=== PATIENT | female | born 1955 | race Caucasian/White ===

== ENCOUNTER 2016-06-14 22:42 | Inpatient (IN) ==
[2016-06-15] MEDS ORDERED: Ondansetron 4 MG/2 ML VIAL IVP PRN ×2 (01:00→08:49)
[2016-06-15] MEDS ORDERED: *HR* Dextrose 50 % in Water (Syg) 50 ML SYRINGE IVP PRN ×2 (01:00→08:49)
[2016-06-15] MEDS ORDERED: D5% in Water 1,000 ML IV PRN ×2 (01:00→08:49)
[2016-06-15] MEDS ORDERED: Acetaminophen 325 MG TABLET PO PRN (01:00)
[2016-06-15] MEDS ORDERED: 0.9 % Sodium Chloride 1,000 ML IVC SCH ×2 (01:00→07:46)
[2016-06-15] MEDS ORDERED: Vancomycin (wt based) 1,000 MG VIAL IVPB SCH (01:00)
[2016-06-15] MEDS ORDERED: Naloxone 0.4 MG/ML INJ IVP PRN ×2 (01:00→08:49)
[2016-06-15] MEDS ORDERED: Dextrose Gel 15 GM PO PRN ×4 (01:00→08:49)
[2016-06-15] MEDS ORDERED: *HR* Morphine 2 MG/ML SYRINGE IVP PRN (01:00)
[2016-06-15] MEDS ORDERED: Albuterol 2.5 MG/3 ML NEBULIZER IH PRN ×2 (01:14→08:49)
--- NOTE | 2016-06-15 01:27 | Internal Med History&Physical ---
Date of Encounter: 06/15/16 Time of Encounter: 01:18 Assessment and Plan (1) Acute hypoxemic respiratory failure Current visit: Yes Status: Acute 1. Pt admitted to ICU for ongoing critical care and support. 2. Will treat with aerosols, antibiotics, and steroids. 3. I worry about PE given her h/o DVT and breast cancer. 4. Continue Lovenox until PE and DVT ruled out. 5. Wean oxygen, if able. If necessary, will palce on BiPap and/or intubate--> ventilator for ongoing respiratory support. 6. CXR negative, but I suspect pneumonia (HCAP). Will treat as such with IV antibiotics. Follow cultures. (2) History of DVT (deep vein thrombosis) Current visit: Yes Status: Chronic 1. Will place patient on full dose of Lovenox and evaluate for DVT and PE. 2. Pt at high risk given prior DVT and breast cancer. 3. Pt reportedly has IVC filter in place. (3) Acute exacerbation of chronic obstructive pulmonary disease (COPD) Current visit: No Status: Acute 1. Likely due to residual pneumonia. 2. Supportive measures as above. 3. Smoking cessation well advised. (4) Breast cancer Current visit: Yes Status: Chronic 1. Outpatient follow up with oncology. 2. Pt had surgery and radiation. No history of chemotherapy. 3. Consult hematology if necessary. Qualifiers: Breast location: unspecified site of breast Patient sex: female Laterality: bilateral Qualified Code(s): C50.911 - Malignant neoplasm of unspecified site of right female breast; C50.912 - Malignant neoplasm of unspecified site of left female breast Internal Medicine - H&P: HPI Chief complaint: SOB Admitted From: Hospital to Hospital Transfer Plans for Post Hospital Care: Transfer [facility]sp Facility History of present illness: Ms. Yang is a 61 year old female who presents in transfer from [facility] ER with complaints of respiratory failure. She was in rehabilitation at her local F when she developed sudden onset of shortness of breath and cough while going outside to smoke a cigarette. She was sent via squad to ER for acute respiratory failure. In the ER, she was working very hard to breathe and was the verge of respiratory collapse according to the ER staff. She did respond to some aerosols and oxygenation. She was refusing BiPAP, but based preliminary discussion with ER staff, she was in dire need of a respiratory support in the form of BiPAP and/or intubation. She improved, however, with conservative measures. ER staff requested transfer to [place], and I accepted her to the ICU. I requested the patient be placed on BiPAP, but she refused. I asked the ER staff to warn her that she may need intubation emergently en route and/or upon arrival to the ICU. Upon arrival to ICU, I saw patient right away. Unfortunately, patient has improved and does not have severe work of breathing at this time. She is coughing vigorously and short of breath. However, she does feel much better. She has a history of COPD and continues to smoke. Additionally, she was just hospitalized in [place] at [facility] last month for severe pneumonia requiring ICU stay. She was treated there with IV antibiotics and respiratory support in the form of BiPAP. She did not require intubation, however. She was discharged to [facility] for rehabilitation after that stay. Of note , patient has a history of breast cancer treated with surgery and radiation therapy. She also has a history of DVT several years ago. Given her risk for hypercoagulability and sudden onset of shortness of breath, I requested the ER staff to give her a one-time dose of Lovenox prior to transfer for suspicion of PE. She denies any chest pain presently. However, she states she developed sudden onset of shortness of breath earlier today which led to acute respiratory failure. She denies any fevers or chills. She has been coughing vigorously the last few days. She denies any significant wheezing, however. Past Med Surg Social Fam HX - Past Medical History Attestation: Yes The following information was validated with the patient. Source: patient, old records reviewed Medical history: arthritis, asthma, COPD, coronary artery disease, CVA, diabetes , GERD, hyperlipidemia, hypertension, thyroid disease, TIA Psychiatric history: anxiety, depression - Past Surgical History Surgical History: breast surgery, orthopedic, other, other (IVC filter) - Social History Smoking Status: Current every day smoker Packs per day: 1.5 Smokeless Tobacco Status: No (1 PPD) Alcohol use: none Drug use: none Current living situation: [facility] Activity Level: Independent ambulation Recent Out of Country Travel Within the Last 8 Weeks: No - Family History Mother Living Status: Hx Family Cardiac Disorders: Yes Hx Family Respiratory Disorders: Yes (emphysema) Hx Family Cancer: Yes (uterine cancer) Father Living Status: Hx Family Cardiac Disorders: Yes Internal Medicine - H&P: Meds Atenolol [Tenormin] 25 mg PO DAILY 05/23/15 [History] Folic Acid 1 mg PO DAILY 05/23/15 [History] Levothyroxine [Synthroid] 25 mcg PO DAILY 05/23/15 [History] Losartan [Cozaar] 25 mg PO DAILY 05/23/15 [History] Metformin [Glucophage] 1,000 mg PO BIDWM 05/23/15 [History] Gabapentin [Neurontin] 300 mg PO TID 10/25/15 [History] Hydroxyzine HCl 25 mg PO TID PRN 10/25/15 [History] Insulin Glargine,Hum.rec.anlog [Lantus Solostar] 25 unit SQ DAILY 10/25/15 [ History] Montelukast [Singulair] 10 mg PO DAILY 10/25/15 [History] Oxygen 1 each .ROUTE AD 10/25/15 [History] FLUoxetine HCl [Fluoxetine HCl] 40 mg PO DAILY 05/21/16 [History] Atorvastatin [Lipitor] 10 mg PO HS 06/14/16 [History] Insulin ASPART [NovoLOG] 0 unit SQ TIDWM 06/14/16 [History] Allergies ibuprofen Adverse Reaction (Verified 06/14/16 20:30) Nausea - Constitutional Constitutional: no chills, no fever(s) - EENT Eyes: no blurry vision, no change in vision Ears: no ear pain, no tinnitus Nose, mouth and throat: nasal congestion, no sinus pressure, no sore throat - Cardiovascular Cardiovascular ROS IM: dyspnea, dyspnea on exertion, no chest pain, no edema, no palpitations - Respiratory Respiratory: cough, dyspnea, dyspnea on exertion, chest congestion, excessive phlegm production, no hemoptysis, no wheezing - Gastrointestinal Gastrointestinal: no abdominal pain, no diarrhea, no hematemesis, no hematochezia, no melena, no nausea, no vomiting - Genitourinary Genitourinary: no dysuria, no flank pain, no hematuria - Musculoskeletal Musculoskeletal ROS IM: no back pain, no muscle cramps, no muscle weakness, no myalgias - Integumentary Integumentary IM: no rash, no jaundice - Neurological Neurological ROS: no dizziness, no focal weakness, no frequent falls, no headache(s) - Psychiatric Psychiatric: anxiety, no depression - Endocrine Endocrine IM: no cold intolerance, no heat intolerance, no polydipsia, no polyuria - Hematologic/Lymphatic Hematologic/Lymphatic: no easy bruising, no lymphadenopathy - Allergic/Immunologic Allergic/Immunologic: no wheezing, no GI upset with certain foods - Constitutional Vitals: Temp Pulse Resp BP Pulse Ox 96.8 F L 82 20 153/98 88 L 06/15/16 00:38 06/15/16 01:00 06/15/16 01:00 06/15/16 01:00 06/15/16 01:00 General appearance: Present: cooperative, mild distress, A&O X 3, answers questions appropriately Exam: mild to moderate respiratory distress - Head Head exam: Present: atraumatic, normal inspection - Expanded Head Exam Head exam expanded: Absent: abrasion, contusion, general tenderness - Eye Eye exam: Present: EOMI, normal appearance, PERRL. Absent: scleral icterus Pupils: Present: normal accommodation - ENT ENT exam: Present: mucous membranes dry, normal exam, normal external ear exam, normal oropharynx - Neck Neck exam general surgery: Present: full ROM, supple. Absent: lymphadenopathy, nuchal rigidity, thyromegaly - Expanded Neck Exam Neck exam: Absent: carotid bruit - Respiratory Respiratory exam: Present: accessory muscle use, prolonged expiratory phase, respiratory distress (moderate), rhonchi. Absent: chest wall tenderness, CTAB, rales, wheezes - Cardiovascular Cardiovascular exam: Present: distant heart sounds, RRR, +S1, +S2. Absent: diastolic murmur, JVD, systolic murmur - GI/Abdominal GI/Abdominal exam: Present: normal bowel sounds, soft. Absent: hepatomegaly, mass, splenomegaly, tenderness - Extremities Exam Extremities exam: Present: full ROM, warm. Absent: calf tenderness, joint swelling, pedal edema - Back Exam Back exam: Absent: CVA tenderness (L), CVA tenderness (R) - Neurological Exam Neurological exam: Present: alert, CN II-XII intact, oriented X3, no focal deficits - Psychiatric Psychiatric exam: Present: anxious. Absent: depressed - Skin Skin exam: Present: dry, warm. Absent: rash Internal Med - H&P Results - Labs Labs: I reviewed the lab results a Shirley and include the following: WBC 15.9 Hemoglobin 15.0 Hematocrit 46.9 Count 194 ABG: PH 7.35 PCO2 55 PO2 67 HCO3 30.1 O2 saturations 91% FiO2 15 L via facemask Sodium 139 Potassium 4.8 Chloride 101 Carbon dioxide 24 BUN 22 Creatinine 0.93 Glucose 507 troponin 0.02 - Diagnostic Studies Chest x-ray Status: image reviewed by me (poor quality; lungs relatively clear; cardioegaly ; report reviewed -- negative) - VTE Reasons for not Prescribing Prophylaxis: Not indicated-Anticoagulated or INR therapeutic
[2016-06-15 02:15] LABS: Basophils % 0.1 %; Hematocrit 44.2 % (35.3-44.9); Hemoglobin 14.3 g/dL (11.5-15.4); Immature Granulocytes % 0.3 % (0-4); Lymphocytes # 0.4 K/mcL (0.6-4.6); Mean Corpuscular HGB Conc 32.4 g/dL (31.6-35.5); Mean Corpuscular Hemoglobin 29.5 pg (28.0-33.3); Mean Corpuscular Volume 91.1 fL (83.0-100.0); Mean Platelet Volume 9.4 fL (9.4-12.4); Monocytes # 0.1 K/mcL (0.0-1.3); Monocytes % 0.9 %; Neutrophils # 11.5 K/mcL (1.6-8.9); Platelet Count 165 K/mcL (140-400); Red Blood Count 4.85 M/mcL (3.82-4.97); Segmented Neutrophils % 95.7 %
[2016-06-15 02:20] LABS: INR 0.9; Prothrombin Time 9.9 Seconds (9.4-12.1)
[2016-06-15 02:23] LABS: Activated Partial Thrombo Time 29.3 Seconds (26.0-36.0)
[2016-06-15 02:35] LABS: Alanine Aminotransferase 63 Units/L (0-55); Albumin/Globulin Ratio 0.8 (1.1-2.2); Alkaline Phosphatase 94 Units/L (38-126); Aspartate Amino Transferase 38 Units/L (5-34); BUN/Creatinine Ratio 23 (6-26); Bilirubin,Total 0.4 mg/dL (0.2-1.2); Blood Urea Nitrogen 23 mg/dL (7-20); Calcium 9.7 mg/dL (8.6-10.8); Carbon Dioxide 29 mEq/L (19-29); Chloride 97 mEq/L (98-109); Globulin 3.6 g/dL (2.4-3.5); Glucose 460 mg/dL (70-99); Magnesium 1.5 mg/dL (1.6-2.6); Osmolality,Calculated 312 (280-300); Potassium 4.7 mEq/L (3.5-4.5); Sodium 139 mEq/L (136-145); Total Protein 6.6 g/dL (6.0-8.3); eGFR For African Americans > 60 (> 60); eGFR For Non-African Americans 58 (> 60)
[2016-06-15] MEDS ORDERED: Vancomycin 2,000 MG in D5% in Water 500 ML IVPB SCH (03:30)
[2016-06-15 03:36] LABS: 2009 H1N1 PCR NOT DETECTED (Not Detect); Influenza A PCR Negative (Negative); Influenza B PCR Negative (Negative)
[2016-06-15] MEDS: Ipratropium/Albuterol Neb 3 ML IH SCH ×5 (03:54→19:48)
[2016-06-15] MEDS ORDERED: *HR* Enoxaparin 150 MG/ML SYRINGE SQ SCH (06:00)
[2016-06-15] MEDS ORDERED: Insulin LISPRO 300 UNITS/3 ML VIAL SQ SCH (07:30)
[2016-06-15] MEDS ORDERED: hydrOXYzine pamoate 25 MG CAPSULE PO PRN (07:44)
[2016-06-15] MEDS ORDERED: Magnesium Sulfate 2 GM in D5% in Water 100 ML IVPB ONE ×2 (07:58→08:49)
[2016-06-15] MEDS ORDERED: Piperacillin/Tazobactam 3.375 GM in D5% in Water (Mini-Bag+) 100 ML IVPB SCH (08:00)
[2016-06-15] MEDS ORDERED: methylPREDNISolone 125 MG/2 ML VIAL IVP SCH (08:00)
--- NOTE | 2016-06-15 08:15 | Event Note ---
Date of Encounter: 06/15/16 Time of Encounter: 08:08 61 year old female admitted with acute on chronic worsening respiratory failure , admitted to ICU. Patient seen and examined; Alert, awake and oriented, morbidly obese female, in no distress; VSS per flow sheet; noted to be saturating around 89-90% on 3L/min NC; Chest -S1, S2 heard; decreased B/L air entry, no active wheezing/rhonchi heard; Abdomen- obese, nontender Extremities- B/L trace pitting pedal edema, ?calf tenderness but no erythema or warmth Acute on chronic respiratory failure- hypoxic and hypercapnic- due to COPD exacerbation and active smoking and possible underlying PNA; continue bronchodilators, IV steroids, IV antibiotics; improving, currently on 3L/min NC ; f/up Venous Doppler lower extremities and stop Lovenox if no DVT; Right lower lobe Pneumonia- could be an infiltrate from the recent infection for which she was treated at [facility], will obtain old records; continue IV Levaquin, Zosyn and Vancomycin for now as she presents from [facility]; DM- Type 2, on insulin- noted to have uncontrolled blood sugars; start basal insulin and continue high dose sliding scale insulin; diabetic diet; Hypomagnesemia- supplement with IV Magnesium sulfate and f/up; Patient is stable for transfer to medical floor/step-down unit;
[2016-06-15] MEDS ORDERED: Insulin DETEMIR 100 UNIT/ML X5UNITS SQ SCH (09:00)
[2016-06-15] MEDS ORDERED: FLUoxetine 20 MG CAPSULE PO SCH (09:00)
[2016-06-15] MEDS ORDERED: Gabapentin 100 MG CAPSULE PO SCH (09:00)
[2016-06-15] MEDS ORDERED: Aspirin Enteric Coated 325 MG Tablet PO SCH (09:00)
[2016-06-15] MEDS ORDERED: Levothyroxine 25 MCG TABLET PO SCH (09:00)
[2016-06-15] MEDS ORDERED: Levofloxacin 750 MG/150 ML 750 MG/150 ML BAG IVPB SCH (09:00)
[2016-06-15] MEDS ORDERED: Folic Acid 1 MG TABLET PO SCH (09:00)
[2016-06-15] MEDS: Folic Acid 1 MG TABLET PO SCH (09:15)
[2016-06-15] MEDS: Aspirin Enteric Coated 325 MG Tablet PO SCH (09:15)
[2016-06-15] MEDS: FLUoxetine 20 MG CAPSULE PO SCH (09:15)
[2016-06-15] MEDS: Insulin DETEMIR 100 UNIT/ML X5UNITS SQ SCH ×2 (09:15→22:01)
[2016-06-15] MEDS: Gabapentin 100 MG CAPSULE PO SCH ×3 (09:15→22:01)
[2016-06-15] MEDS: Levothyroxine 25 MCG TABLET PO SCH (09:16)
[2016-06-15] MEDS: methylPREDNISolone 125 MG/2 ML VIAL IVP SCH ×2 (09:32→16:20)
[2016-06-15] MEDS: 0.9 % Sodium Chloride 1,000 ML IVC SCH ×2 (09:43→12:11)
[2016-06-15] MEDS: Insulin LISPRO 300 UNITS/3 ML VIAL SQ SCH ×2 (11:38→16:26)
--- NOTE | 2016-06-15 13:41 | Oncology Inp Consult Note ---
Date of Encounter: 06/15/16 Time of Encounter: 13:00 Assessment and Plan (1) Breast cancer Status: Chronic Assessment and plan: 61 yo female with mohini lumpectomy with SLN- Right breast [id number] stage IA 0/4 LN neg 1.7cm, grade 2, DCIs margins clear and invasive ductal ca left breast [id number] stage IA 0/3 LN neg, grade 2, DICS present, margins clear. ER/VA positive HER2 neg Oncotype score at 20--Absolute benefit of chemotherapy is small, risk reduction for recurrence in minimal. Anastrazole 1mg daily started 12/02/15--no side effects. She has been held in her rehab stay, she needs to resume S/P RT --radiation skin changes healing no clinical signs of recurrence Family hx ca uterine in sister and mother and another sister ovarian DEXA scan baseline-12/26 normal. She has quit ca. She currently smokes cigarettes with erythrocytosis, wJAk2 was negative. Half PPD. Labs not repeated today. COPD exacerbation, recent pneumonia on abx, O2, clinically improving. Screening mammogram due around . Will order outpatient nad return soon after for follow up Above plan of care d/w patient and sister who stated understanding. Patient will return to my clinic for follow up as scheduled. Qualifiers: Breast location: unspecified site of breast Patient sex: female Laterality: bilateral Qualified Code(s): C50.911 - Malignant neoplasm of unspecified site of right female breast; C50.912 - Malignant neoplasm of unspecified site of left female breast - Data of Consult Requesting Physician: Gisselle Corbett MD Primary Care Provider: Dimitris Villaseñor CNP - Consult Narrative Reason for consult: breast cancer History of present illness: Ms. Yang is a 61 year old female with medical history significant for COPD , history of DVT, history of breast cancer status post surgery on the antiestrogen therapy status post radiation, patient was transferred from [facility] due to respiratory failure patient was in the rehabilitation and reports having shortness of breath as she had an episode, when she was wanting to smoke cigarettes. Denies any fever or chills. She underwent a CT angiogram to rule out pulmonary embolism. She also underwent Dopplers of lower extremities, she has bilateral lower extremity swelling. He also has history of anxiety depression. Patient is currently on any antibiotics. Rule out pneumonia. She has been at rehabilitation since her discharge from [place] from [facility] for pneumonia. She reports some changes in the right breast area. She had an appointment today in the clinic for routine follow-up visit for breast cancer, hence she is being seen in the hospital today. Past Med Surg Social Fam HX - Past Medical History Medical history: arthritis, asthma, COPD, coronary artery disease, CVA, diabetes , GERD, hyperlipidemia, hypertension, thyroid disease, TIA Psychiatric history: anxiety, depression - Past Surgical History Surgical History: breast surgery, orthopedic, other, other (IVC filter) - Social History Smoking Status: Current every day smoker Packs per day: 1.5 Smokeless Tobacco Status: No (1 PPD) Alcohol use: none Drug use: none - Family History Mother Living Status: Hx Family Cardiac Disorders: Yes Hx Family Respiratory Disorders: Yes (emphysema) Hx Family Cancer: Yes (uterine cancer) Father Living Status: Hx Family Cardiac Disorders: Yes Medications and Allergies Atenolol [Tenormin] 25 mg PO DAILY 05/23/15 [History] Folic Acid 1 mg PO DAILY 05/23/15 [History] Levothyroxine [Synthroid] 25 mcg PO DAILY 05/23/15 [History] Losartan [Cozaar] 25 mg PO DAILY 05/23/15 [History] Metformin [Glucophage] 1,000 mg PO BID 05/23/15 [History] Gabapentin [Neurontin] 300 mg PO TID 10/25/15 [History] Hydroxyzine HCl 25 mg PO TID PRN 10/25/15 [History] Insulin Glargine,Hum.rec.anlog [Lantus Solostar] 25 unit SQ HS 10/25/15 [History ] Montelukast [Singulair] 10 mg PO DAILY 10/25/15 [History] Oxygen 2.5 l .ROUTE AD 10/25/15 [History] FLUoxetine HCl [Fluoxetine HCl] 40 mg PO DAILY 05/21/16 [History] Atorvastatin [Lipitor] 10 mg PO HS 06/14/16 [History] Insulin ASPART [NovoLOG] 10 - 30 unit SQ TIDWM 06/14/16 [History] Aspirin [Ecotrin] 325 mg PO DAILY 06/15/16 [History] Ipratropium/Albuterol Neb [Duoneb] 3 ml IH Q6HR 06/15/16 [History] Allergies acetaminophen [From Tylenol] Allergy (Verified 06/15/16 07:25) Hives ibuprofen Adverse Reaction (Verified 06/14/16 20:30) Nausea Review of systems: as in HPI Oncology - Exam - Constitutional Vitals: Temp Pulse Resp BP Pulse Ox 97.6 F 75 18 148/68 88 L 06/15/16 11:34 06/15/16 13:05 06/15/16 13:05 06/15/16 13:05 06/15/16 13:05 General appearance: mild distress, obese - Head Head exam: Present: atraumatic, normal inspection - Eye Eye exam: Present: sclera anicteric - ENT ENT exam: Present: mucous membranes moist - Neck Neck exam: Present: full ROM Additional comments: no adenopathy - Respiratory Respiratory exam: Present: CTAB, rhonchi - Cardiovascular Cardiovascular exam: Present: +S1, +S2 - GI/Abdominal GI/Abdominal exam: Present: normal bowel sounds, soft - Extremities Exam Extremities exam: Present: pedal edema - Neurological Exam Neurological exam: Present: alert, CN II-XII intact, oriented X3 - Psychiatric Psychiatric exam: Present: normal affect Oncology - Results - Labs Labs: Short CBC 06/15/16 Range/Units 02:04 WBC 12.0 H (4.3-11.1) K/mcL Hgb 14.3 (11.5-15.4) g/dL Hct 44.2 (35.3-44.9) % Plt Count 165 (140-400) K/mcL Neutrophils # 11.5 H (1.6-8.9) K/mcL BMP 06/15/16 02:04 Sodium 139 Potassium 4.7 H Chloride 97 L Carbon Dioxide 29 BUN 23 H Creatinine 0.98 Glucose 460 H Calcium 9.7 Cardiac Enzymes 06/15/16 06/15/16 Range/Units 02:04 06:27 Troponin I 0.30 H* 0.32 H* (0-0.03) ng/mL Liver Function 06/15/16 Range/Units 02:04 Total Bilirubin 0.4 (0.2-1.2) mg/dL AST 38 H (5-34) Units/L ALT 63 H (0-55) Units/L Alkaline Phosphatase 94 (38-126) Units/L Albumin 3.0 L (3.5-5.0) g/dL Consult Discharge Plan - Plan Referrals: Dimitris Villaseñor, JARRETT [Primary Care Provider] -
--- NOTE | 2016-06-15 14:22 | Electrocardiograph Report ---
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
[2016-06-15] MEDS: Vancomycin 2,000 MG in D5% in Water 500 ML IVPB SCH (16:21)
[2016-06-15] MEDS: Piperacillin/Tazobactam 3.375 GM in D5% in Water (Mini-Bag+) 100 ML IVPB SCH (16:21)
[2016-06-15] MEDS: *HR* Enoxaparin 150 MG/ML SYRINGE SQ SCH (16:37)
[2016-06-15] MEDS: hydrOXYzine pamoate 25 MG CAPSULE PO PRN (16:49)
[2016-06-15] MEDS: Nicotine 21 MG PATCH.TD24 TD SCH (22:02)
[2016-06-15] MEDS: diazePAM 5 MG TABLET PO PRN (22:46)
[2016-06-16] MEDS: Piperacillin/Tazobactam 3.375 GM in D5% in Water (Mini-Bag+) 100 ML IVPB SCH (00:27)
[2016-06-16] MEDS: methylPREDNISolone 125 MG/2 ML VIAL IVP SCH ×3 (00:28→17:15)
[2016-06-16] MEDS: hydrOXYzine pamoate 25 MG CAPSULE PO PRN ×3 (00:28→14:08)
[2016-06-16] MEDS: 0.9 % Sodium Chloride 1,000 ML IVC SCH ×3 (01:28→07:59)
[2016-06-16] MEDS: Ipratropium/Albuterol Neb 3 ML IH SCH ×6 (02:23→20:36)
[2016-06-16 05:25] LABS: Basophils % 0.1 %; Hematocrit 43.6 % (35.3-44.9); Immature Granulocytes % 0.4 % (0-4); Lymphocytes # 0.5 K/mcL (0.6-4.6); Lymphocytes % 4.4 %; Mean Corpuscular HGB Conc 32.1 g/dL (31.6-35.5); Mean Corpuscular Hemoglobin 28.7 pg (28.0-33.3); Mean Corpuscular Volume 89.5 fL (83.0-100.0); Mean Platelet Volume 9.2 fL (9.4-12.4); Monocytes # 0.3 K/mcL (0.0-1.3); Monocytes % 2.2 %; Neutrophils # 10.8 K/mcL (1.6-8.9); Platelet Count 171 K/mcL (140-400); Red Blood Count 4.87 M/mcL (3.82-4.97); Red Cell Distribution Width 14.6 % (11.5-14.5); Segmented Neutrophils % 92.9 %
[2016-06-16] MEDS: Vancomycin 2,000 MG in D5% in Water 500 ML IVPB SCH (05:25)
[2016-06-16] MEDS: Levothyroxine 25 MCG TABLET PO SCH (05:28)
[2016-06-16] MEDS: *HR* Enoxaparin 150 MG/ML SYRINGE SQ SCH (05:28)
[2016-06-16 05:50] LABS: BUN/Creatinine Ratio 31 (6-26); Blood Urea Nitrogen 28 mg/dL (7-20); Calcium 8.9 mg/dL (8.6-10.8); Carbon Dioxide 25 mEq/L (19-29); Chloride 101 mEq/L (98-109); Glucose 435 mg/dL (70-99); Osmolality,Calculated 306 (280-300); Potassium 4.7 mEq/L (3.5-4.5); Sodium 136 mEq/L (136-145); eGFR For African Americans > 60 (> 60); eGFR For Non-African Americans > 60 (> 60)
[2016-06-16] MEDS: Insulin LISPRO 300 UNITS/3 ML VIAL SQ SCH ×6 (06:19→17:16)
[2016-06-16] MEDS: FLUoxetine 20 MG CAPSULE PO SCH (07:37)
[2016-06-16] MEDS: Gabapentin 100 MG CAPSULE PO SCH ×3 (07:37→19:45)
[2016-06-16] MEDS: Folic Acid 1 MG TABLET PO SCH (07:37)
[2016-06-16] MEDS: diazePAM 5 MG TABLET PO PRN ×3 (07:37→19:45)
[2016-06-16] MEDS: Aspirin Enteric Coated 325 MG Tablet PO SCH (07:38)
[2016-06-16] MEDS ORDERED: Perflutren Lipid Microsphere 1.3 ML in 0.9 % Sodium Chloride 8.7 ML IVP ONE (07:39)
[2016-06-16] MEDS: Nicotine 21 MG PATCH.TD24 TD SCH (07:39)
[2016-06-16] MEDS: Insulin DETEMIR 100 UNIT/ML X5UNITS SQ SCH ×2 (07:50→19:46)
[2016-06-16] MEDS: Levofloxacin 750 MG/150 ML 750 MG/150 ML BAG IVPB SCH (08:02)
[2016-06-16] MEDS ORDERED: Dextrose Gel 15 GM PO PRN ×2 (09:40)
[2016-06-16] MEDS ORDERED: *HR* Dextrose 50 % in Water (Syg) 50 ML SYRINGE IVP PRN (09:40)
[2016-06-16] MEDS ORDERED: D5% in Water 1,000 ML IV PRN (09:40)
--- NOTE | 2016-06-16 10:03 | Internal Med Progress Note ---
Date of Encounter: 06/16/16 Time of Encounter: 09:59 - Assessment and plan (1) Pneumonia Current Visit: Yes Status: Acute Assessment and plan: CT chest suggestive of PNA in right lower lobe along with mucus plugging of right lower lobe bronchial airways. Records from [facility] reviewed, where the patient was admitted in early May 2016 and was noted to have left upper lobe atelectasis/pneumonia and mucous plugging, underwent bronchoscopy with sterile cultures and was treated with IV Levaquin. Blood and sputum cultures currently so far remain negative, will de-escalate antibiotics to IV Levaquin; improving clinically; continue supportive care with supplemental O2; Qualifiers: Pneumonia type: due to unspecified organism Laterality: right Lung location: lower lobe of lung Qualified Code(s): J18.1 - Lobar pneumonia, unspecified organism (2) Acute on chronic respiratory failure Current Visit: Yes Status: Acute Assessment and plan: Related to acute exacerbation of COPD given her continued half pack per day smoking. Improving clinically. Taper down IV steroids as tolerated. Continue inhaled corticosteroids, bronchodilators, supplemental oxygen and supportive care. Currently requiring 3-4 L/m oxygen via nasal cannula, which will probably be her new baseline. Of note, patient continually refuses BiPAP support but she is agreeable to endotracheal intubation if needed. CODE STATUS discussed with patient and she confirms that she wishes to be full code. Physical and occupational therapy evaluation for safe discharge home as patient insists on going home and not to the rehabilitation facility from which she was admitted to our hospital. guest services agent on board. Qualifiers: Respiratory failure complication: hypoxia Qualified Code(s): J96.21 - Acute and chronic respiratory failure with hypoxia (3) Acute exacerbation of chronic obstructive pulmonary disease (COPD) Current Visit: Yes Status: Acute Assessment and plan: Plan as above. (4) Elevated troponin Current Visit: Yes Status: Acute Assessment and plan: Troponins trending down, around 0.2. This is most likely related to demand ischemia and acute COPD and hypoxemia. Continue telemetry monitoring and repeat troponin. Follow up echocardiogram. (5) Breast cancer Current Visit: Yes Status: Chronic Assessment and plan: Oncology evaluation appreciated. Patient is to follow-up as an outpatient. Qualifiers: Breast location: unspecified site of breast Patient sex: female Laterality: bilateral Qualified Code(s): C50.911 - Malignant neoplasm of unspecified site of right female breast; C50.912 - Malignant neoplasm of unspecified site of left female breast (6) Anxiety Current Visit: Yes Status: Chronic Assessment and plan: Continue benzodiazepines as needed. (7) Diabetes mellitus Current Visit: Yes Status: Chronic Assessment and plan: Noted to have steroid-induced hyperglycemia. We will increase basal insulin and add nutritional insulin, continue sliding scale. Diabetic diet. Qualifiers: Diabetes mellitus type: type 2 Diabetes mellitus complication status: with hyperglycemia Diabetes mellitus detention insulin use: with terminal gauger supervisor use Qualified Code(s): E11.65 - Type 2 diabetes mellitus with hyperglycemia; Z79.4 - terminal worker (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 of insulin (8) Hypertension Current Visit: Yes Status: Chronic Qualifiers: Hypertension type: essential hypertension Qualified Code(s): I10 - Essential (primary) hypertension (9) Hypothyroidism Current Visit: Yes Status: Chronic Qualifiers: Hypothyroidism type: acquired Qualified Code(s): E03.9 - Hypothyroidism, unspecified (10) Morbid obesity with BMI of 45.0-49.9, adult Current Visit: Yes Status: Chronic (11) Nicotine dependence with nicotine-induced disorder Current Visit: Yes Status: Chronic Assessment and plan: Noted to smoke at least 1-1-1/2 pack per day of cigarettes. Continue nicotine transdermal patch, patient is not motivated to consider smoking cessation at this time. Qualifiers: Nicotine product type: cigarettes Qualified Code(s): F17.219 - Nicotine dependence, cigarettes, with unspecified nicotine-induced disorders - Subjective Interval history: Reports feeling much better, wants to be discharged home. Has some shortness of breath, which is her baseline. No chest pain, palpitations. Has intermittent cough. No fever or chills. Patient insists on going home and not to rehabilitation facility as she claims she only has 1 more day of rehabilitation left and she does not want to go back there. - Constitutional Vitals: Temp Pulse Resp BP Pulse Ox 98.4 F 67 18 147/85 92 L 06/16/16 07:07 06/16/16 07:07 06/16/16 07:59 06/16/16 07:07 06/16/16 08:54 General appearance: Present: A&O X 3, morbidly obese, answers questions appropriately - Respiratory Respiratory exam: Present: decreased breath sounds (Bilateral decreased air entry. No active wheezing or rhonchi.). Absent: accessory muscle use, rales, rhonchi, wheezes - Cardiovascular Cardiovascular exam: Present: RRR, +S1, +S2. Absent: diastolic murmur, gallop, rubs, systolic murmur - GI/Abdominal GI/Abdominal exam: Present: normal bowel sounds, soft (Obese), no peritoneal signs. Absent: distended, tenderness - Extremities Exam Extremities exam: Present: pedal edema, warm, radial pulses palpable and symetrical. Absent: calf tenderness, cyanotic - Neurological Exam Neurological exam: Present: CN II-XII intact, oriented X3, no focal deficits. Absent: pronater drift, facial droop, speech deficit Internal Medicine: Result - Labs CBC & Chem 7: 06/16/16 05:14 06/16/16 05:14 Labs: Short CBC 06/16/16 Range/Units 05:14 WBC 11.6 H (4.3-11.1) K/mcL Hgb 14.0 (11.5-15.4) g/dL Hct 43.6 (35.3-44.9) % Plt Count 171 (140-400) K/mcL Neutrophils # 10.8 H (1.6-8.9) K/mcL BMP 06/16/16 05:14 Sodium 136 Potassium 4.7 H Chloride 101 Carbon Dioxide 25 BUN 28 H Creatinine 0.90 Glucose 435 H Calcium 8.9 Cardiac Enzymes 06/15/16 Range/Units 13:08 Troponin I 0.27 H* (0-0.03) ng/mL - ABG Interpretation ABG results: PT/INR, D-dimer PT 9.9 Seconds (9.4-12.1) 06/15/16 02:04 - VTE Reasons for not Prescribing Prophylaxis: Not indicated-Anticoagulated or INR therapeutic Consult Discharge Plan - Plan Referrals: Dimitris Villaseñor, RETAIL WIRELESS SALES REPRESENTATIVE [Primary Care Provider] -
--- NOTE | 2016-06-16 11:56 | ECHO - Doppler Report ---
Echo with Imaging Enhancement Agent Name: Carey Yang Date of Study: 06/16/2016 Date: 1955 Ht: 67.0 in Medical Record#: [id number] Age: 61 Wt: 313.0 lb Gender: Female BSA: 2.45 Order #: [id number] Location: [facility] Room #: 2N9 Reading Physician: Ashok Marshall DO, FACRonnie, PUSHPA JOHN Public Health Specialist: Anay Savage RVT Ordering Physician: Audelia Corbett MD Primary Physician: Elena Villaseñor CNP Indications: Elevated Troponin Impressions: LVEF 60%. Mildly dilated left ventricle. Mild concentric left ventricular hypertrophy. Mild left ventricular diastolic dysfunction. Right ventricle was grossly normal in function. Severely dilated left atrium. Right ventricle was grossly normal in function. Mild-moderate aortic regurgitation. Mild tricuspid regurgitation. Mild pulmonary hypertension. Estimated RVSP is 39 mmHg. Left Ventricular Wall Motion: Rest Echo Findings All wall segments showed normal motion. Findings: Study Quality * Technically sub-optimal due to body habitus. ECG Findings * Sinus bradycardia. Left Ventricle * LVEF 60%. * Mildly dilated left ventricle. * Mild concentric left ventricular hypertrophy. * Mild left ventricular diastolic dysfunction. Right Ventricle * Right ventricle was grossly normal in function. Left Atrium * Severely dilated left atrium. Right Atrium * Moderately dilated right atrium. Interatrial Septum * Interatrial septum not well evaluated. Aortic Valve * Trileaflet aortic valve. * Mildly sclerotic aortic valve leaflets. * Mild-moderate aortic regurgitation. * No aortic stenosis. Mitral Valve * Mild mitral annular calcification * No mitral regurgitation. * No mitral stenosis. Tricuspid Valve * Normal tricuspid valve structure. * Mild tricuspid regurgitation. * Mild pulmonary hypertension. * Estimated RVSP is 39 mmHg. * Estimated RA pressure is presumed to be at least 5 mmHg. Pulmonic Valve * Pulmonic valve not well visualized. * No pulmonic regurgitation. Aorta * Normally sized aortic root. Pericardium * The pericardium appears normal. IVC * The IVC is not well evaluated. Pulmonary Artery * Normal visualized portions of the main pulmonary artery. History Hypertension Diabetes Hypercholesteremia History of Smoking Years 25 Packs 1 Family History of CAD 07-02-2015 a Previous Echo was performed. Contrast: Definity 1.3 ml in 8.7 ml of saline 3 ml. Measurements: BP: 130/ 58 2D Normal Values RVIDd: 4.20 cm <2.7 cm IVSd: 1.30 cm 0.6 - 1.0 cm LVIDd: 5.80 cm 3.7 - 5.6 cm LVPWd: 1.30 cm 0.6 - 1.1 cm LVIDs: 4.70 cm 1.5 - 3.6 cm AO: 2.80 cm < 4.0 cm LA: 4.30 cm 2.0 - 4.0cm %FS: 25.40 cm >25 % LA volume: 84 Mitral Valve Peak E:1.22 m/sec Peak A:1.14 m/sec E/A Ratio:1.1 Peak E' Lat Dale:5.5 cm/s Peak E' Med Dale:4.05 cm/s E/E' Lat Ratio:22.2 E/E' Med Ratio:30.1 Aortic Valve Pressure 1/2 time:697.00 msec AI pressure Half-time: 697.00 msec Tricuspid Valve TV Regurg Peak Grad: 34.00mmHg TV Regurg Peak Dale: 2.93m/sec Updated by Ashok Marshall DO, FACRonnie, PUSHPA JOHN on 06/16/2016 11:47:44 AM electronically signed on 06/16/2016 11:50:10 AM with status of Final Wall Motion Aguilera: 1=Normal, 2=Hypokinesis, 3=Akinesis, 4=Dyskinesis, 5=Aneurysmal, 6=Hyperkinetic, X=Not Visualized (Blank)=Missing
--- NOTE | 2016-06-16 13:03 | Venous Imaging Report ---
LE Venous Duplex Patient Name:Carey Yang Order Number:[id number] Procedure Date:06/15/2016 Date:1955ge:61 yrs Gender:Female Location:[facility] Room #: IC09 Battery Builder:Angelina Valladares RDCS, [place] Referring MD:Celestino Escudero MD horizontal drill operator:Elena Villaseñor, SALES AND SERVICE ADVISOR Reading MD:Aleksandar Boswell MD Primary Indications:Respiratory Failure Secondary Indications: Risk Factors Yes/No Hx of DVT Yes Trauma to Veins No Anticoagulants Yes Bushnell Filter Yes Impressions: Bilateral lower extremity: normal superficial and deep exam. Recommendations: Test completed on 06/15/2016 at 8:32:33 am. Critical findings reported to Ani Pulido in person at 8:40:33 am on 06/15/2016 by Angelina Valladares RDCS, CARLTON. Findings Prior Study: No prior study available for comparison. Lower Extremity Venous Duplex Side Vein Compress Spontaneous Flow Augment Diameter (cm) Depth (cm) Right Distal Iliac Normal Yes Phasic Yes Right Common Femoral Normal Yes Phasic Yes Right Superficial Femoral Normal Yes Phasic Yes Right Popliteal Normal Yes Phasic Yes Right Posterior Tibial Normal Yes Phasic Yes Right Peroneal Normal Yes Phasic Yes Right Great Saphenous Normal Yes Phasic Yes Right Lesser Saphenous Normal Yes Phasic Yes Left Distal Iliac Normal Yes Phasic Yes Left Common Femoral Normal Yes Phasic Yes Left Superficial Femoral Normal Yes Phasic Yes Left Popliteal Normal Yes Phasic Yes Left Posterior Tibial Normal Yes Phasic Yes Left Peroneal Normal Yes Phasic Yes Left Gastrocnemius Normal Yes Phasic Yes Left Great Saphenous Normal Yes Phasic Yes Left Lesser Saphenous Normal Yes Phasic Yes Updated by Aleksandar Boswell MD on 06/16/2016 12:56:41 PM electronically signed on 06/16/2016 12:56:51 PM with status of Final
[2016-06-16] MEDS: *HR* Heparin 5,000 UNIT/ML VIAL SQ SCH (17:14)
[2016-06-17] MEDS: hydrOXYzine pamoate 25 MG CAPSULE PO PRN ×2 (01:02→08:10)
[2016-06-17] MEDS: methylPREDNISolone 125 MG/2 ML VIAL IVP SCH ×2 (01:02→08:12)
[2016-06-17] MEDS: Ipratropium/Albuterol Neb 3 ML IH SCH ×5 (01:14→16:10)
[2016-06-17] MEDS: Folic Acid 1 MG TABLET PO SCH (08:09)
[2016-06-17] MEDS: Levothyroxine 25 MCG TABLET PO SCH (08:10)
[2016-06-17] MEDS: Aspirin Enteric Coated 325 MG Tablet PO SCH (08:10)
[2016-06-17] MEDS: FLUoxetine 20 MG CAPSULE PO SCH (08:10)
[2016-06-17] MEDS: Nicotine 21 MG PATCH.TD24 TD SCH (08:10)
[2016-06-17] MEDS: Gabapentin 100 MG CAPSULE PO SCH (08:10)
[2016-06-17] MEDS: diazePAM 5 MG TABLET PO PRN (08:10)
[2016-06-17] MEDS: Insulin DETEMIR 100 UNIT/ML X5UNITS SQ SCH (08:11)
[2016-06-17] MEDS: Levofloxacin 750 MG/150 ML 750 MG/150 ML BAG IVPB SCH (08:11)
[2016-06-17] MEDS: *HR* Heparin 5,000 UNIT/ML VIAL SQ SCH (08:20)
[2016-06-17] MEDS: Insulin LISPRO 300 UNITS/3 ML VIAL SQ SCH ×4 (08:21→11:43)
[2016-06-17] MEDS ORDERED: MethylPREDNISolone 40 MG/ML VIAL IVP SCH (10:45)
--- NOTE | 2016-06-17 10:59 | Discharge Summary ---
Date of Encounter: 06/17/16 Time of Encounter: 10:53 - Discharge Diagnosis (1) Pneumonia Priority: Primary Status: Acute Qualifiers: Pneumonia type: due to unspecified organism Laterality: right Lung location: lower lobe of lung Qualified Code(s): J18.1 - Lobar pneumonia, unspecified organism (2) Acute on chronic respiratory failure Priority: Primary Status: Resolved Qualifiers: Respiratory failure complication: hypoxia Qualified Code(s): J96.21 - Acute and chronic respiratory failure with hypoxia (3) Acute exacerbation of chronic obstructive pulmonary disease (COPD) Priority: Primary Status: Acute (4) Elevated troponin Priority: Primary Status: Acute (5) Breast cancer Priority: Secondary Status: Chronic Qualifiers: Breast location: unspecified site of breast Patient sex: female Laterality: bilateral Qualified Code(s): C50.911 - Malignant neoplasm of unspecified site of right female breast; C50.912 - Malignant neoplasm of unspecified site of left female breast (6) Anxiety Priority: Secondary Status: Chronic (7) Diabetes mellitus Priority: Secondary Status: Chronic Qualifiers: Diabetes mellitus type: type 2 Diabetes mellitus complication status: with hyperglycemia Diabetes mellitus bed bug exterminator insulin use: with bed bug exterminator use Qualified Code(s): E11.65 - Type 2 diabetes mellitus with hyperglycemia; Z79.4 - skilled nursing (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 of insulin (8) Hypertension Priority: Secondary Status: Chronic Qualifiers: Hypertension type: essential hypertension Qualified Code(s): I10 - Essential (primary) hypertension (9) Hypothyroidism Priority: Secondary Status: Chronic Qualifiers: Hypothyroidism type: acquired Qualified Code(s): E03.9 - Hypothyroidism, unspecified (10) Morbid obesity with BMI of 45.0-49.9, adult Priority: Secondary Status: Chronic (11) Nicotine dependence with nicotine-induced disorder Priority: Secondary Status: Chronic Qualifiers: Nicotine product type: cigarettes Qualified Code(s): F17.219 - Nicotine dependence, cigarettes, with unspecified nicotine-induced disorders - Discharge Medications Prescriptions: Levofloxacin [Levaquin] 500 mg PO DAILY 5 Days PredniSONE 60 mg PO DAILY 18 Days Home Medications: Atenolol [Tenormin] 25 mg PO DAILY 05/23/15 [History] Folic Acid 1 mg PO DAILY 05/23/15 [History] Levothyroxine [Synthroid] 25 mcg PO DAILY 05/23/15 [History] Losartan [Cozaar] 25 mg PO DAILY 05/23/15 [History] Metformin [Glucophage] 1,000 mg PO BID 05/23/15 [History] Gabapentin [Neurontin] 300 mg PO TID 10/25/15 [History] Hydroxyzine HCl 25 mg PO TID PRN 10/25/15 [History] Montelukast [Singulair] 10 mg PO DAILY 10/25/15 [History] Oxygen 2.5 l .ROUTE AD 10/25/15 [History] FLUoxetine HCl [Fluoxetine HCl] 40 mg PO DAILY 05/21/16 [History] Atorvastatin [Lipitor] 10 mg PO HS 06/14/16 [History] Insulin ASPART [NovoLOG] 10 - 30 unit SQ TIDWM 06/14/16 [History] Aspirin [Ecotrin] 325 mg PO DAILY 06/15/16 [History] Ipratropium/Albuterol Neb [Duoneb] 3 ml IH Q6HR 06/15/16 [History] Insulin Glargine,Hum.rec.anlog [Lantus Solostar] 40 unit SQ HS #1 06/17/16 [Rx] Levofloxacin [Levaquin] 500 mg PO DAILY 5 Days 06/17/16 [Rx] PredniSONE 60 mg PO DAILY 18 Days 06/17/16 [Rx] Allergies/Adverse Reactions: Allergies acetaminophen [From Tylenol] Allergy (Verified 06/15/16 07:25) Hives ibuprofen Adverse Reaction (Verified 06/14/16 20:30) Nausea Procedures/tests Complete & Pending: Procedures Performed prior 72 hours Category Date Time Status CT angio chest [CT] Routine Cat Scan 06/15/16 01:00 Completed ECG 12 lead ECG [ECG] Routine Y 06/15/16 01:00 Completed EV echocardiogram w enhance Routine Y 06/16/16 18:32 Completed Venous Doppler [EV venous imaging LE BI] Routine Y 06/15/16 01:16 Completed Date of admission: 06/15/16 01:34 Primary care physician: Dimitris Villaseñor CNP Consults: 06/15/16 01:00 Consult to Nurse Navigator [CONS] Routine Comment: 06/15/16 01:03 Consult to Broadcast News Producer [CONS] Routine Reason for SW Consult: Discharge 06/15/16 08:29 Consult to Oncology [CONS] Routine Consulting Provider: [facility] Reason for Consult: Breast cancer f/up Call Completed: Yes 06/16/16 09:56 Consult to Occupational Therapy [CONS] Routine Comment: Evaluate, develop and implement POC Consult to Physical Therapy [CONS] Routine Comment: Evaluate, develop and implement POC Discharging clinician: Gisselle Corbett Anticipated date of discharge: 06/17/16 - Patient Status Disposition: Home Health Service Condition: Good Functional capacity at discharge: uses cane/walker Overall status at discharge: patient is progressing back to baseline - Discharge Instructions Instructions: Prednisone (By mouth), Levofloxacin (By mouth), Diabetes Mellitus Type 2 in Adults (DC), Chronic Obstructive Pulmonary Disease (DC), Meal Planning with Diabetes Exchanges (DC) Follow Up With: Dimitris Villaseñor CNP [Primary Care Provider] - - Diet and Activity Activity: as per physical therapy, wear oxygen at all times Diet: diabetic diet, low fat, low cholesterol, low salt diet Hospital course: Ms. Yang is a 61 year old female with history of COPD, chronic tobacco abuse was admitted with worsening cough and shortness of breath from rehabilitation facility. She was noted to be having an acute exacerbation of COPD and was initially admitted to ICU due to the possibility of requiring endotracheal intubation. Patient was extremely reluctant to be placed on BiPAP support due to discomfort from BiPAP mask, however she is agreeable to intubation. She was started on IV steroids, empiric IV antibiotics, bronchodilators and supplemental oxygen. She initially required nonrebreather mask but gradually was able to be weaned down to her baseline oxygen requirements of 2-3 L/m nasal cannula. CT angiogram of chest was done which showed no evidence of pulmonary embolism but possible mucus plugging of right lower lobe bronchi along with right basal infiltrates. She was initially started on broad-spectrum IV antibiotics- vancomycin, Zosyn and Levaquin. Blood and sputum cultures remained negative. Patient also had uncontrolled diabetes and severe hyperglycemia, complicated by the use of IV steroids. Her blood sugars have improved and currently in low 200s. She is being discharged home on increased dose of Lantus. Physical therapy evaluation and recommend home health services and patient is currently medically stable for discharge; referral for home health services has been completed. She will benefit from physical and occupational therapy and visiting nurse services at home due to her chronic medical conditions and frequent hospitalizations. Time spent discussing smoking cessation with patient: 3 to 10 minutes - Time Spent with Patient Total time spent providing and/or coordinating discharge services: Greater than 30 minutes (50 min) - Constitutional Vitals: Temp Pulse Resp BP Pulse Ox 97.7 F 61 18 166/65 94 L 06/17/16 07:07 06/17/16 08:38 06/17/16 07:07 06/17/16 07:07 06/17/16 07:07 General appearance: Present: A&O X 3, morbidly obese, answers questions appropriately - Respiratory Respiratory exam: Present: decreased breath sounds (Bilateral decreased air entry). Absent: accessory muscle use, rales, rhonchi, wheezes - Cardiovascular Cardiovascular exam: Present: RRR, +S1, +S2. Absent: diastolic murmur, gallop, rubs, systolic murmur - VTE Reasons for not Prescribing Prophylaxis: Not indicated-Anticoagulated or INR therapeutic
--- NOTE | 2016-06-17 11:01 | Physician Discharge Referral ---
Home Health/Hosp Referral Info Transfer to: Home Health Attending Provider: Gisselle Corbett Provider in Charge Post Discharge: PCP - Diagnosis (1) Pneumonia Priority: Primary Status: Acute (2) Acute on chronic respiratory failure Priority: Primary Status: Resolved (3) Acute exacerbation of chronic obstructive pulmonary disease (COPD) Priority: Primary Status: Acute (4) Elevated troponin Priority: Primary Status: Acute (5) Breast cancer Priority: Secondary Status: Chronic (6) Anxiety Priority: Secondary Status: Chronic (7) Diabetes mellitus Priority: Secondary Status: Chronic (8) Hypertension Priority: Secondary Status: Chronic (9) Hypothyroidism Priority: Secondary Status: Chronic (10) Morbid obesity with BMI of 45.0-49.9, adult Priority: Secondary Status: Chronic (11) Nicotine dependence with nicotine-induced disorder Priority: Secondary Status: Chronic - Respiratory Orders Oxygen / L per min (2-3L/min via NC) Smoking Cessation: Smoking cessation has been advised. For more information, call the [employer] Tobacco Quit Line at 6-407-LECS-NOW. - Diet/Nutrition Diet/Nutrition Orders: No Added Salt (TAWANNA), Cardiac, No Concentrated Sweets ( diabetic) - Activity Activity Orders: Ambulate - Services Needed Following services are medically necessary services: Nursing, Physical Therapy, Occupational Therapy - Transfer Medications Prescriptions: Levofloxacin [Levaquin] 500 mg PO DAILY 5 Days PredniSONE 60 mg PO DAILY 18 Days Home Medications: Atenolol [Tenormin] 25 mg PO DAILY 05/23/15 [History] Folic Acid 1 mg PO DAILY 05/23/15 [History] Levothyroxine [Synthroid] 25 mcg PO DAILY 05/23/15 [History] Losartan [Cozaar] 25 mg PO DAILY 05/23/15 [History] Metformin [Glucophage] 1,000 mg PO BID 05/23/15 [History] Gabapentin [Neurontin] 300 mg PO TID 10/25/15 [History] Hydroxyzine HCl 25 mg PO TID PRN 10/25/15 [History] Montelukast [Singulair] 10 mg PO DAILY 10/25/15 [History] Oxygen 2.5 l .ROUTE AD 10/25/15 [History] FLUoxetine HCl [Fluoxetine HCl] 40 mg PO DAILY 05/21/16 [History] Atorvastatin [Lipitor] 10 mg PO HS 06/14/16 [History] Insulin ASPART [NovoLOG] 10 - 30 unit SQ TIDWM 06/14/16 [History] Aspirin [Ecotrin] 325 mg PO DAILY 06/15/16 [History] Ipratropium/Albuterol Neb [Duoneb] 3 ml IH Q6HR 06/15/16 [History] Insulin Glargine,Hum.rec.anlog [Lantus Solostar] 40 unit SQ HS #1 06/17/16 [Rx] Levofloxacin [Levaquin] 500 mg PO DAILY 5 Days 06/17/16 [Rx] PredniSONE 60 mg PO DAILY 18 Days 06/17/16 [Rx] Allergies/Adverse Reactions: Allergies acetaminophen [From Tylenol] Allergy (Verified 06/15/16 07:25) Hives ibuprofen Adverse Reaction (Verified 06/14/16 20:30) Nausea Certification: Further, I certify that my clinical findings support that this patient is homebound (i.e. absences from home require considerable and taxing effort and are for medical reasons or rastafari services or infrequently or short duration when for other reasons) because: Homebound Reason: Patient requires assistance of a person or device to safely leave home, Severity of cardiac or pulmonary status limits activity tolerance Attestation: My signature below is to certify that this patient is under my care and that I, or nurse practitioner, or a physician's child nutrition assistant working with me, has a face-to -face encounter with this patient.
[2016-06-17 11:14] VITALS: BP 152/64
[2016-06-17] MEDS ORDERED: Aminoglycoside Consult 1 EACH MC ONE (14:39)
== END 2016-06-17 14:40 | disposition home health service (06) | DRG 189 ==
LOC: ICNU → SUATTDRO 06-15 01:34 → 2NNU 06-15 21:30
PROVIDERS: ADMIT Pediatrics; ATTEND Internal Medicine

== ENCOUNTER 2017-01-08 21:01 | Inpatient (IN) ==
[2017-01-08] MEDS ORDERED: 0.9 % Sodium Chloride 1,000 ML IVC ONE ×2 (21:12→22:30)
--- NOTE | 2017-01-08 21:31 | Emergency Department Note ---
Disposition Clinical Impression: HCAP (healthcare-associated pneumonia), Delirium due to general medical condition Leucocytosis Qualifiers: Leukocytosis type: unspecified Qualified Code(s): D72.829 - Elevated white blood cell count, unspecified COPD (chronic obstructive pulmonary disease) Qualifiers: COPD type: unspecified COPD Qualified Code(s): J44.9 - Chronic obstructive pulmonary disease, unspecified Disposition: Admitted As Inpatient Condition: Fair Referrals: Dimitris Villaseñor CNP [Primary Care Provider] - Forms: ED Satisfaction Letter Time of Disposition: 23:21 Altered Mental Status HPI - General Chief Complaint: ED Altered Mental Status Stated Complaint: fall Time Seen by Provider: 01/08/17 21:03 Source: patient, family, EMS Mode of arrival: EMS Limitations: no limitations Nursing Notes Reviewed: Yes Vital Signs Reviewed: Yes - History of Present Illness HPI Narrative: Patient presents to the ED via EMS with the chief complaint of fall and altered mental status. Patient reports that she was discharged from the hospital recently after her stroke. This did leave her with some residual right-sided weakness. She has had no acute change in weakness. Family reports that she has fallen 3 times today. Unknown if she had her head or passed out. Family reported some intermittent confusion as well. Upon EMS arrival, they stated she was oriented to person only and was having significant difficulty in getting to the cot. Upon arrival here. She states that she has been following. She is complaining of right knee pain, left hip pain, headache, and lumbar pain. No abdominal pain , nausea, vomiting, diarrhea, loss of control her bowel or bladder function. No chest pain or shortness of breath. Chronic neck pain with no change from previous. She states she does not remember what happened when she fell. Denies any new weakness in her right side. No difficulty speaking, above baseline. - Related Data Home Medications Medication Instructions Recorded Confirmed Atenolol [Tenormin] 25 mg PO DAILY 05/23/15 06/15/16 Folic Acid 1 mg PO DAILY 05/23/15 06/15/16 Levothyroxine [Synthroid] 25 mcg PO DAILY 05/23/15 06/15/16 Losartan [Cozaar] 25 mg PO DAILY 05/23/15 06/15/16 metFORMIN [Glucophage] 1,000 mg PO BID 05/23/15 06/15/16 Gabapentin [Neurontin] 300 mg PO TID 10/25/15 06/15/16 Montelukast [Singulair] 10 mg PO DAILY 10/25/15 06/15/16 Oxygen 2.5 l .ROUTE AD 10/25/15 06/15/16 hydrOXYzine HCl [Hydroxyzine HCl] 25 mg PO TID PRN 10/25/15 06/15/16 FLUoxetine HCl [Fluoxetine HCl] 40 mg PO DAILY 05/21/16 06/15/16 Atorvastatin [Lipitor] 10 mg PO HS 06/14/16 06/15/16 Insulin ASPART [NovoLOG] 10 - 30 unit SQ TIDWM 06/14/16 06/15/16 Aspirin [Ecotrin] 325 mg PO DAILY 06/15/16 06/15/16 Ipratropium/Albuterol Neb [Duoneb] 3 ml IH Q6HR 06/15/16 06/15/16 Previous Rx's Medication Instructions Recorded Insulin Glargine,Hum.rec.anlog 40 unit SQ HS #1 06/17/16 [Lantus Solostar] Levofloxacin [Levaquin] 500 mg PO DAILY 5 Days 06/17/16 predniSONE [PredniSONE] 60 mg PO DAILY 18 Days 06/17/16 Allergies Allergy/AdvReac Type Severity Reaction Status Date / Time acetaminophen [From Tylenol] Allergy Hives Verified 06/15/16 07:25 ibuprofen AdvReac Nausea Verified 06/14/16 20:30 All systems ED: reviewed and negative except as stated. Constitutional: Reports: weakness (chronic ). Denies: fever Eyes: Denies: vision change Cardiovascular: Denies: chest pain Respiratory: Denies: dyspnea Gastrointestinal: Denies: abdominal pain, vomiting Musculoskeletal: Reports: as per HPI, back pain Neurological: Reports: headache Past Medical History - Past Medical History Attestation: Yes The following information was validated with the patient. Source: patient, old records reviewed, obtained from family Medical history: Reports: arthritis, asthma, COPD, coronary artery disease, CVA , diabetes, GERD, hyperlipidemia, hypertension, thyroid disease, TIA Surgical history: Reports: breast surgery, orthopedic, other, other (IVC filter) Psychiatric history: Reports: anxiety, depression EYELET MAKER history: Reports: no EYELET MAKER history - Social History Smoking Status: Current every day smoker Smokeless Tobacco Status: No (1 PPD) Alcohol use: Reports: none Drug use: Reports: none Physical Exam - General Limitations: no limitations General appearance: alert, in no apparent distress - Head Head exam: atraumatic, normocephalic, normal inspection - Eye Eye exam: Present: normal appearance, PERRL, EOMI - ENT ENT exam: normal exam, normal oropharynx, mucous membranes moist - Neck Neck exam: Present: normal inspection, full ROM, trachea midline. Absent: tenderness, meningismus - Chest Chest inspection: Present: normal inspection, symmetric chest wall rise - Respiratory Respiratory exam: Present: normal lung sounds bilaterally, other (Slight decreased breath sounds bilaterally) - Cardiovascular Cardiovascular exam: Present: regular rate, normal rhythm, normal heart sounds - Abdominal Exam Abdominal exam: Present: soft, Non-Tender, other (Morbidly obese). Absent: tenderness, distention, guarding, rebound, rigidity - Extremities Exam Extremities exam: Present: other (Large abrasion to the right knee with associated tenderness and warmth, no obvious dislocation, distal neurovascular exam is normal. Patient with residual right-sided weakness from previous stroke reports no change from baseline.) - Expanded Lower Extremity Exam Hip/Pelvis exam: Present: pelvis stable (Does have left hip pain) - Back Exam Back exam: Present: other (Midline lower lumbar pain reports new from baseline) - Neurological Exam Neurological exam: Present: alert. Absent: oriented X3 (Patient knows the year and her name and date of , but does not know what town or hospital. She is not) - Skin Skin exam: Present: warm, dry, intact, normal color Course Course Narrative: 61-year-old female presenting with altered mental status and fall. Appears much older than stated age, smells heavily of urine. Does not know what town she is in or what hospital she is in. Will CT head lumbar spine, chest x-ray, right knee x-ray and left hip x-ray. Patient will likely be admitted. - Reevaluation(s) Reevaluation #1: Patient clinically has pneumonia. She has a fever, leukocytosis, productive sputum and left lower lobar consolidation. We will treat her as he Symptoms. She states she was just in the hospital a few weeks ago for stroke. She is now alert and oriented 3. She was able to relay that she knew edema. Health systems was located in [place] and she also knew her home. Lumbar puncture was considered due to her falls and initial confusion. However, I do think that pneumonia is the most likely source of her infection and could certainly contribute to her confusion. Vital Signs Temperature 100.7 F H 01/08/17 21:14 Pulse Rate 91 01/08/17 21:14 Respiratory Rate 24 01/08/17 21:14 Blood Pressure 149/91 01/08/17 21:14 O2 Sat by Pulse Oximetry 91 01/08/17 21:14 Temperature 99.4 F 01/08/17 22:59 Pulse Rate 73 01/08/17 22:59 Respiratory Rate 22 01/08/17 22:59 Blood Pressure 130/95 01/08/17 22:59 O2 Sat by Pulse Oximetry 94 01/08/17 22:59 Oxygen Delivery Oxygen Delivery Nasal Cannula Altered Mental Status - Medical Records Medical records reviewed: Yes I reviewed the patient's medical records. - Lab Data Lab results reviewed: Yes I reviewed the patient's lab results. Result diagrams: 01/08/17 21:51 01/08/17 21:51 Lab Results 01/08/17 01/08/17 01/08/17 Range/Units 21:37 21:51 21:51 WBC 20.0 H (4.3-11.1) K/mcL RBC 5.03 H (3.82-4.97) M/mcL Hgb 14.7 (11.5-15.4) g/dL Hct 47.2 H (35.3-44.9) % MCV 93.8 (83.0-100.0) fL MCH 29.2 (28.0-33.3) pg MCHC 31.1 L (31.6-35.5) g/dL RDW 16.0 H (11.5-14.5) % Plt Count 267 (140-400) K/mcL MPV 9.0 L (9.4-12.4) fL Immature Gran % 0.5 (0-4) % Seg Neutrophils % 82.7 % Lymphocytes % 6.0 % Monocytes % 6.7 % Eosinophils % 3.7 % Basophils % 0.4 % Neutrophils # 16.6 H (1.6-8.9) K/mcL Lymphocytes # 1.2 (0.6-4.6) K/mcL Monocytes # 1.3 (0.0-1.3) K/mcL Eosinophils # 0.7 H (0.0-0.6) K/mcL Basophils # 0.1 (0.0-0.2) K/mcL PT 11.0 (9.4-12.1) Seconds INR 1.0 APTT 30.5 (26.0-36.0) Seconds Sodium (136-145) mEq/L Potassium (3.5-4.5) mEq/L Chloride (98-109) mEq/L Carbon Dioxide (19-29) mEq/L BUN (7-20) mg/dL Creatinine (0.57-1.11) mg/dL Est GFR ( Amer) (> 60) Est GFR (Non-Af Amer) (> 60) BUN/Creatinine Ratio (6-26) Glucose (70-99) mg/dL Calculated Osmolality (280-300) Lactic Acid (0.5-2.2) mmol/L Calcium (8.6-10.8) mg/dL Total Bilirubin (0.2-1.2) mg/dL AST (5-34) Units/L ALT (0-55) Units/L Alkaline Phosphatase (38-126) Units/L Troponin I (0-0.03) ng/mL Serum Total Protein (6.0-8.3) g/dL Albumin (3.5-5.0) g/dL Globulin (2.4-3.5) g/dL Albumin/Globulin Ratio (1.1-2.2) Urine Color Yellow (Yellow) Urine Clarity Clear (Clear) Urine pH 6.5 (5.0-8.0) pH Units Ur Specific Bend 1.017 (1.010-1.025) Urine Protein 100 H (Neg-Trace) mg/dL Urine Glucose (UA) Normal (Normal) mg/dL Urine Ketones Negative (Negative) mg/dL Urine Blood Negative (Negative) Urine Nitrite Negative (Negative) Urine Bilirubin Negative (Negative) Urine Urobilinogen Normal (Normal) mg/dL Ur Leukocyte Esterase Trace H (Negative) Urine Microscopic RBC 0-3 (0-3) per hpf Urine Microscopic WBC 0-3 (0-3) per hpf Ur Squamous Epith Cells Many H (None-Few) per lpf Urine Bacteria None Seen (None-Few) per hpf Hyaline Casts None Seen (None-Few) per lpf Ur Culture Indicated? YES A (NO) Ethyl Alcohol (0-10) mg/dL 01/08/17 01/08/17 01/08/17 Range/Units 21:51 21:51 21:51 WBC (4.3-11.1) K/mcL RBC (3.82-4.97) M/mcL Hgb (11.5-15.4) g/dL Hct (35.3-44.9) % MCV (83.0-100.0) fL MCH (28.0-33.3) pg MCHC (31.6-35.5) g/dL RDW (11.5-14.5) % Plt Count (140-400) K/mcL MPV (9.4-12.4) fL Immature Gran % (0-4) % Seg Neutrophils % % Lymphocytes % % Monocytes % % Eosinophils % % Basophils % % Neutrophils # (1.6-8.9) K/mcL Lymphocytes # (0.6-4.6) K/mcL Monocytes # (0.0-1.3) K/mcL Eosinophils # (0.0-0.6) K/mcL Basophils # (0.0-0.2) K/mcL PT (9.4-12.1) Seconds INR APTT (26.0-36.0) Seconds Sodium 139 (136-145) mEq/L Potassium 5.3 H (3.5-4.5) mEq/L Chloride 101 (98-109) mEq/L Carbon Dioxide 31 H (19-29) mEq/L BUN 26 H (7-20) mg/dL Creatinine 1.14 H (0.57-1.11) mg/dL Est GFR ( Amer) 59 L (> 60) Est GFR (Non-Af Amer) 49 L (> 60) BUN/Creatinine Ratio 23 (6-26) Glucose 88 (70-99) mg/dL Calculated Osmolality 292 (280-300) Lactic Acid 0.9 (0.5-2.2) mmol/L Calcium 10.2 (8.6-10.8) mg/dL Total Bilirubin 0.5 (0.2-1.2) mg/dL AST 12 (5-34) Units/L ALT 10 (0-55) Units/L Alkaline Phosphatase 81 (38-126) Units/L Troponin I 0.01 (0-0.03) ng/mL Serum Total Protein 7.4 (6.0-8.3) g/dL Albumin 3.3 L (3.5-5.0) g/dL Globulin 4.1 H (2.4-3.5) g/dL Albumin/Globulin Ratio 0.8 L (1.1-2.2) Urine Color (Yellow) Urine Clarity (Clear) Urine pH (5.0-8.0) pH Units Ur Specific Bend (1.010-1.025) Urine Protein (Neg-Trace) mg/dL Urine Glucose (UA) (Normal) mg/dL Urine Ketones (Negative) mg/dL Urine Blood (Negative) Urine Nitrite (Negative) Urine Bilirubin (Negative) Urine Urobilinogen (Normal) mg/dL Ur Leukocyte Esterase (Negative) Urine Microscopic RBC (0-3) per hpf Urine Microscopic WBC (0-3) per hpf Ur Squamous Epith Cells (None-Few) per lpf Urine Bacteria (None-Few) per hpf Hyaline Casts (None-Few) per lpf Ur Culture Indicated? (NO) Ethyl Alcohol < 10 (0-10) mg/dL - Radiology Data Radiology results reviewed: Yes I reviewed the patient's radiology results. Chest X-Ray 01/08/17 21:12 IMPRESSION: 1. Findings suspicious for interstitial pulmonary edema or pneumonia. D/ / 01/08/2017 23:17:19 Amaury Mcmahan MD / tyrone Interpreting Provider: Amaury Mcmahan MD Head CT 01/08/17 21:12 IMPRESSION: 1. No acute intracranial abnormality. 2. Diffuse cerebral atrophy with chronic small vessel ischemic disease. 3. Stable encephalomalacia as discussed above. D/ / Duong Brasher MD / Duong Brasher MD Interpreting Provider: Duong Brasher MD Knee X-Ray 01/08/17 21:12 IMPRESSION: No acute osseous abnormality. Moderate degenerative osteoarthritis. D/ / 01/08/2017 23:19:47 Amaury Mcmahan MD / tyrone Interpreting Provider: Amaury Mcmahan MD Lumbar Spine CT 01/08/17 21:12 IMPRESSION: No acute abnormality of the lumbar spine. Mild degenerative disc disease without definite evidence of spinal canal or foraminal stenosis. D/ / Alfonso Grayson MD / Alfonso Grayson MD Interpreting Provider: Alfonso Grayson MD Hip X-Ray 01/08/17 21:46 IMPRESSION: No acute osseous abnormality. D/ / Amaury Mcmahan MD / Amaury Mcmahan MD Interpreting Provider: Amaury Mcmahan MD - EKG Data EKG attestation: Yes I reviewed and interpreted this EKG. EKG results narrative: Sinus rhythm, rate 72, NV interval 148, QRS 93, QTc 443, normal axis, no acute ischemic changes TPA Checklist - LKW: 3-4.5 hrs Add. Warnings/Precautions Patient/family understanding: The patient/family members have been counseled and understood the risk, benefit , and alternatives of treatment. Attestation Statement - Attestation Attestation: I examined this patient and my medical decision-making was reviewed with the Resident Physician. I agree with the documented findings, disposition and treatment plan as described except to the extent set forth below. Patient ED with a chief complaint of altered mental status. Brought in by brother. States she has had 3 falls in the past day or so. She is also more confused than normal. Exam shows her febrile. Oriented to time and self. Plan. Altered mental status workup. Patient is febrile. She is a white blood cell count of 20,000. We will start antibiotics. 45 minutes of critical care exclusive of separately billable procedures.
[2017-01-08 21:51] LABS: Bilirubin,Urine Negative (Negative); Blood,Urine Negative (Negative); Clarity,Urine Clear (Clear); Color,Urine Yellow (Yellow); Glucose,Urine (UA) Normal (Normal); Ketones,Urine Negative (Negative); Leukocyte Esterase,Urine Trace (Negative); Nitrite,Urine Negative (Negative); PH,Urine 6.5 pH Units (5.0-8.0); Protein,Urine 100 mg/dL (Neg-Trace); Specific Gravity,Urine 1.017 (1.010-1.025); Urobilinogen,Urine Normal (Normal)
[2017-01-08 21:54] LABS: Bacteria,Urine None Seen per hpf (None-Few); Hyaline Casts,Urine None Seen per lpf (None-Few); Squamous Epithelial Cell,Urine Many per lpf (None-Few); WBC,Urine 0-3 per hpf (0-3)
[2017-01-08 22:01] LABS: Basophils # 0.1 K/mcL (0.0-0.2); Basophils % 0.4 %; Eosinophils # 0.7 K/mcL (0.0-0.6); Eosinophils % 3.7 %; Hematocrit 47.2 % (35.3-44.9); Hemoglobin 14.7 g/dL (11.5-15.4); Immature Granulocytes % 0.5 % (0-4); Lymphocytes # 1.2 K/mcL (0.6-4.6); Mean Corpuscular HGB Conc 31.1 g/dL (31.6-35.5); Mean Corpuscular Hemoglobin 29.2 pg (28.0-33.3); Mean Corpuscular Volume 93.8 fL (83.0-100.0); Monocytes # 1.3 K/mcL (0.0-1.3); Monocytes % 6.7 %; Neutrophils # 16.6 K/mcL (1.6-8.9); Platelet Count 267 K/mcL (140-400); Red Blood Count 5.03 M/mcL (3.82-4.97); Segmented Neutrophils % 82.7 %
[2017-01-08 22:09] LABS: RBC,Urine 0-3 per hpf (0-3)
[2017-01-08 22:10] LABS: Activated Partial Thrombo Time 30.5 Seconds (26.0-36.0)
[2017-01-08 22:17] LABS: Alanine Aminotransferase 10 Units/L (0-55); Albumin 3.3 g/dL (3.5-5.0); Albumin/Globulin Ratio 0.8 (1.1-2.2); Alkaline Phosphatase 81 Units/L (38-126); Aspartate Amino Transferase 12 Units/L (5-34); BUN/Creatinine Ratio 23 (6-26); Bilirubin,Total 0.5 mg/dL (0.2-1.2); Blood Urea Nitrogen 26 mg/dL (7-20); Calcium 10.2 mg/dL (8.6-10.8); Carbon Dioxide 31 mEq/L (19-29); Chloride 101 mEq/L (98-109); Ethanol < 10 mg/dL (0-10); Globulin 4.1 g/dL (2.4-3.5); Glucose 88 mg/dL (70-99); Osmolality,Calculated 292 (280-300); Potassium 5.3 mEq/L (3.5-4.5); Sodium 139 mEq/L (136-145); Total Protein 7.4 g/dL (6.0-8.3); eGFR For African Americans 59 (> 60); eGFR For Non-African Americans 49 (> 60)
[2017-01-08] MEDS ORDERED: Levofloxacin 750 MG/150 ML 750 MG/150 ML BAG IVPB ONE (22:32)
[2017-01-08] MEDS ORDERED: Vancomycin 2,000 MG in D5% in Water 250 ML IVPB ONE (22:32)
[2017-01-08] MEDS ORDERED: Piperacillin/Tazobactam 4.5 GM in D5% in Water (Mini-Bag+) 100 ML IVPB ONE (22:32)
[2017-01-08] MEDS ORDERED: Vancomycin 2,000 MG in D5% in Water 500 ML IVPB ONE (23:00)
[2017-01-09] MEDS ORDERED: Naloxone 0.4 MG/ML INJ IVP PRN (01:36)
[2017-01-09] MEDS ORDERED: Ipratropium/Albuterol Neb 3 ML IH PRN (01:44)
[2017-01-09] MEDS ORDERED: Dextrose Gel 15 GM PO PRN ×2 (01:46)
[2017-01-09] MEDS ORDERED: *HR* Dextrose 50 % in Water (Syg) 50 ML SYRINGE IVP PRN (01:46)
[2017-01-09] MEDS ORDERED: D5% in Water 1,000 ML IVC PRN (01:46)
[2017-01-09] MEDS: Insulin DETEMIR 100 UNIT/ML X5UNITS SQ SCH ×2 (02:43→23:31)
--- NOTE | 2017-01-09 03:07 | Internal Med History&Physical ---
Date of Encounter: 01/09/17 Time of Encounter: 02:00 Assessment and Plan (1) HCAP (healthcare-associated pneumonia) Current visit: Yes Status: Acute Patient has cough and elevated WBC. Chest x-ray shows most likely pneumonia. - We will treat patient as healthcare associated pneumonia. - Continue vancomycin and place patient on cefepime. Patient is at high risk because she is on vancomycin, need close monitoring. (2) Diabetes mellitus Current visit: No Status: Chronic Patient was on Lantus 40 units at bedtime. As of her glucose level is not high , will decrease dose to 22 units HS and also cover patient with sliding scale. Qualifiers: Diabetes mellitus type: type 2 Diabetes mellitus complication status: with hyperglycemia Diabetes mellitus technician terminal and repeater insulin use: with technician terminal and repeater use Qualified Code(s): E11.65 - Type 2 diabetes mellitus with hyperglycemia; Z79.4 - nursing home (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 of insulin (3) Hypertension Current visit: No Status: Chronic Continue home medications. Qualifiers: Hypertension type: essential hypertension Qualified Code(s): I10 - Essential (primary) hypertension (4) COPD (chronic obstructive pulmonary disease) Current visit: Yes Status: Chronic Patient has a cough and wheezing. Consider mild exacerbation with pneumonia. We will treat the patient with prednisone po and bronchodilator. Continue antibiotic for both pneumonia and COPD exacerbation. Qualifiers: COPD type: emphysema Emphysema type: unspecified Qualified Code(s): J43.9 - Emphysema, unspecified (5) Tobacco use Current visit: No Status: Resolved Smoking cessation education, place nicotine patch (6) DVT prophylaxis Current visit: No Status: Inactive Heparin subcutaneously (7) Acute kidney injury Current visit: No Status: Acute Elevated creatinine level from baseline. Will give patient low rate IV fluid and follow-up her renal function Internal Medicine - H&P: HPI Chief complaint: Fall Admitted From: Home Plans for Post Hospital Care: Home History of present illness: Ms. Yang is a 61 year old female with history of CVA with right-sided residual weakness, diabetes, hypertension presented to ER for fall and altered mental status. Patient fell today. Patient said that she does not know if she lost consciousness or not. Has hit her head but no obvious injury. Patient also complains recent cough with greenish sputum, with a fever, nausea and vomiting. Patient denies shortness of breath or chest pain. In emergency room , she was found elevated WBC and chest x-ray suggests pneumonia. Patient has a recent hospitalization for pneumonia. She was admitted as healthcare associated pneumonia. I have discussed CODE STATUS with patient. Patient clearly told me she does not want CPR but accept intubation. DNR CCA placed. Past Med Surg Social Fam HX - Past Medical History Medical history: arthritis, asthma, COPD, coronary artery disease, CVA, diabetes , GERD, hyperlipidemia, hypertension, thyroid disease, TIA Psychiatric history: anxiety, depression - Past Surgical History Surgical History: breast surgery, orthopedic, other, other - Social History Smoking Status: Current every day smoker Smokeless Tobacco Status: No (1 PPD) Alcohol use: none Drug use: none - Family History Mother Living Status: Hx Family Cardiac Disorders: Yes Hx Family Respiratory Disorders: Yes (emphysema) Hx Family Cancer: Yes (uterine cancer) Father Living Status: Hx Family Cardiac Disorders: Yes Internal Medicine - H&P: Meds Atenolol [Tenormin] 25 mg PO DAILY 05/23/15 [History] Folic Acid 1 mg PO DAILY 05/23/15 [History] Levothyroxine [Synthroid] 25 mcg PO DAILY 05/23/15 [History] Losartan [Cozaar] 25 mg PO DAILY 05/23/15 [History] metFORMIN [Glucophage] 1,000 mg PO BID 05/23/15 [History] Gabapentin [Neurontin] 300 mg PO TID 10/25/15 [History] Montelukast [Singulair] 10 mg PO DAILY 10/25/15 [History] Oxygen 2.5 l .ROUTE AD 10/25/15 [History] hydrOXYzine HCl [Hydroxyzine HCl] 25 mg PO TID PRN 10/25/15 [History] FLUoxetine HCl [Fluoxetine HCl] 40 mg PO DAILY 05/21/16 [History] Atorvastatin [Lipitor] 10 mg PO HS 06/14/16 [History] Insulin ASPART [NovoLOG] 10 - 30 unit SQ TIDWM 06/14/16 [History] Aspirin [Ecotrin] 325 mg PO DAILY 06/15/16 [History] Ipratropium/Albuterol Neb [Duoneb] 3 ml IH Q6HR 06/15/16 [History] Insulin Glargine,Hum.rec.anlog [Lantus Solostar] 40 unit SQ HS #1 06/17/16 [Rx] Levofloxacin [Levaquin] 500 mg PO DAILY 5 Days 06/17/16 [Rx] predniSONE [PredniSONE] 60 mg PO DAILY 18 Days 06/17/16 [Rx] 3 Allergy/AdvReac Type Severity Reaction Status Date / Time acetaminophen [From Tylenol] Allergy Hives Verified 06/15/16 07:25 ibuprofen AdvReac Nausea Verified 06/14/16 20:30 All Systems PM: A 10-system review of systems was performed and is negative for pertinent findings except as documented above in the HPI. - Constitutional Vitals: Temp Pulse Resp BP Pulse Ox 97.3 F L 67 18 132/66 92 01/09/17 01:30 01/09/17 01:30 01/09/17 01:30 01/09/17 01:30 01/09/17 01:30 General appearance: Present: A&O X 3, morbidly obese, no acute distress, answers questions appropriately - Head Head exam: Present: atraumatic, normocephalic - Eye Eye exam: Present: PERRL, conjuntiva pink, sclera anicteric Pupils: Present: PERRL - Neck Neck exam general surgery: Present: supple, trachea midline. Absent: lymphadenopathy - Respiratory Respiratory exam: Present: CTAB. Absent: accessory muscle use, rales, rhonchi, wheezes - Cardiovascular Cardiovascular exam: Present: RRR, +S1, +S2. Absent: diastolic murmur, gallop, rubs, systolic murmur - GI/Abdominal GI/Abdominal exam: Present: normal bowel sounds, soft, no peritoneal signs. Absent: distended, tenderness - Extremities Exam Extremities exam: Present: warm, radial pulses palpable and symmetrical. Absent : calf tenderness, cyanotic, pedal edema - Neurological Exam Neurological exam: Present: CN II-XII intact, oriented X3, no focal deficits. Absent: pronater drift, facial droop, speech deficit - Skin Skin exam: Present: dry, intact Internal Med - H&P Results - Labs CBC & Chem 7: 01/08/17 21:51 01/08/17 21:51
[2017-01-09] MEDS: Ipratropium/Albuterol Neb 3 ML IH SCH ×4 (04:00→22:56)
[2017-01-09 06:34] LABS: Basophils # 0.1 K/mcL (0.0-0.2); Basophils % 0.3 %; Eosinophils # 0.6 K/mcL (0.0-0.6); Eosinophils % 3.3 %; Hematocrit 44.2 % (35.3-44.9); Hemoglobin 13.8 g/dL (11.5-15.4); Immature Granulocytes % 0.6 % (0-4); Lymphocytes # 1.3 K/mcL (0.6-4.6); Lymphocytes % 7.1 %; Mean Corpuscular HGB Conc 31.2 g/dL (31.6-35.5); Mean Corpuscular Hemoglobin 29.6 pg (28.0-33.3); Mean Corpuscular Volume 94.6 fL (83.0-100.0); Mean Platelet Volume 9.8 fL (9.4-12.4); Monocytes # 1.3 K/mcL (0.0-1.3); Monocytes % 7.5 %; Neutrophils # 14.4 K/mcL (1.6-8.9); Platelet Count 242 K/mcL (140-400); Red Blood Count 4.67 M/mcL (3.82-4.97); Red Cell Distribution Width 16.3 % (11.5-14.5); Segmented Neutrophils % 81.2 %
[2017-01-09 06:38] LABS: Calcium 9.8 mg/dL (8.6-10.8); Potassium 4.8 mEq/L (3.5-4.5)
[2017-01-09] MEDS: *HR* Heparin 5,000 UNIT/ML VIAL SQ SCH ×2 (06:45→17:31)
[2017-01-09] MEDS: 0.9 % Sodium Chloride 1,000 ML IVC SCH ×2 (06:57→20:29)
[2017-01-09] MEDS: Nicotine 21 MG PATCH.TD24 TD SCH (08:16)
[2017-01-09] MEDS: predniSONE 20 MG TABLET PO SCH (08:16)
[2017-01-09] MEDS: Insulin LISPRO 300 UNITS/3 ML VIAL SQ SCH ×4 (08:17→23:18)
[2017-01-09] MEDS: Cefepime HCl 2,000 MG in D5% in Water (Mini-Bag+) 100 ML IVPB SCH ×3 (08:17→23:31)
[2017-01-09] MEDS: *HR* Morphine 2 MG/ML SYRINGE IVP PRN ×2 (08:42→16:12)
[2017-01-09] MEDS ORDERED: Aminoglycoside Consult 1 EACH MC ONE (09:35)
--- NOTE | 2017-01-09 13:20 | Internal Med Progress Note ---
Date of Encounter: 01/09/17 Time of Encounter: 13:18 - Assessment and plan (1) Sepsis Current Visit: No Status: Acute Assessment and plan: Sepsis secondary to community-acquired pneumonia Fever of 100.7 and white blood cell count of 20 Restart Levaquin, consider discontinuing cefepime discontinue vancomycin Continue mild hydration Chest x-ray showed interstitial pulmonary edema versus pneumonia Qualifiers: Sepsis type: sepsis due to unspecified organism Qualified Code(s): A41.9 - Sepsis, unspecified organism (2) Community acquired pneumonia Current Visit: Yes Status: Acute Qualifiers: Laterality: unspecified laterality Qualified Code(s): J18.9 - Pneumonia, unspecified organism (3) Diabetes mellitus Current Visit: No Status: Chronic Assessment and plan: Continue insulin sliding scale Qualifiers: Diabetes mellitus type: type 2 Diabetes mellitus complication status: with hyperglycemia Diabetes mellitus penitentiary insulin use: with director long term care use Qualified Code(s): E11.65 - Type 2 diabetes mellitus with hyperglycemia; Z79.4 - assisted (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 of insulin (4) COPD (chronic obstructive pulmonary disease) Current Visit: Yes Status: Chronic Assessment and plan: Mild acute COPD exacerbation secondary to community-acquired pneumonia Continue prednisone Qualifiers: COPD type: emphysema Emphysema type: unspecified Qualified Code(s): J43.9 - Emphysema, unspecified (5) Tobacco use Current Visit: No Status: Resolved Assessment and plan: Smoking cessation counseling, nicotine patch (6) Nicotine dependence with nicotine-induced disorder Current Visit: No Status: Chronic Qualifiers: Nicotine product type: cigarettes Qualified Code(s): F17.219 - Nicotine dependence, cigarettes, with unspecified nicotine-induced disorders (7) Morbid obesity with BMI of 45.0-49.9, adult Current Visit: No Status: Chronic (8) Dyslipidemia Current Visit: No Status: Chronic - Constitutional Vitals: Temp Pulse Resp BP Pulse Ox 97.9 F 63 14 140/68 89 01/09/17 11:57 01/09/17 11:57 01/09/17 11:57 01/09/17 11:57 01/09/17 11:57 General appearance: Present: A&O X 3, morbidly obese, no acute distress, answers questions appropriately Internal Medicine: Result - Labs CBC & Chem 7: 01/09/17 05:27 01/09/17 05:27 Labs: Short CBC 01/09/17 Range/Units 05:27 WBC 17.7 H (4.3-11.1) K/mcL Hgb 13.8 (11.5-15.4) g/dL Hct 44.2 (35.3-44.9) % Plt Count 242 (140-400) K/mcL Neutrophils # 14.4 H (1.6-8.9) K/mcL BMP 01/09/17 05:27 Sodium 141 Potassium 4.8 H Chloride 101 Carbon Dioxide 33 H BUN 25 H Creatinine 1.14 H Glucose 84 Calcium 9.8 - ABG Interpretation ABG results: PT/INR, D-dimer PT 11.0 Seconds (9.4-12.1) 01/08/17 21:51 Consult Discharge Plan - Plan Referrals: Dimitris Villaseñor CNP [Primary Care Provider] -
[2017-01-09] MEDS ORDERED: Albuterol 2.5 MG/3 ML NEBULIZER IH PRN (14:21)
[2017-01-09] MEDS ORDERED: Perflutren Lipid Microsphere 1.3 ML in 0.9 % Sodium Chloride 8.7 ML IVP ONE (14:31)
[2017-01-09] MEDS ORDERED: Vancomycin 2,000 MG in D5% in Water 500 ML IVPB ONE (15:00)
[2017-01-09] MEDS ORDERED: Vancomycin 2,000 MG in D5% in Water 250 ML IVPB SCH (20:00)
[2017-01-10] MEDS: *HR* Morphine 2 MG/ML SYRINGE IVP PRN ×5 (01:28→21:38)
[2017-01-10] MEDS ORDERED: Vancomycin 1,500 MG in D5% in Water 250 ML IVPB SCH (03:00)
[2017-01-10] MEDS: Ipratropium/Albuterol Neb 3 ML IH SCH ×4 (04:16→22:03)
[2017-01-10 05:02] LABS: Hematocrit 44.3 % (35.3-44.9); Hemoglobin 13.8 g/dL (11.5-15.4); Mean Corpuscular HGB Conc 31.2 g/dL (31.6-35.5); Mean Corpuscular Hemoglobin 29.7 pg (28.0-33.3); Mean Corpuscular Volume 95.3 fL (83.0-100.0); Platelet Count 205 K/mcL (140-400); Red Blood Count 4.65 M/mcL (3.82-4.97)
[2017-01-10] MEDS: *HR* Heparin 5,000 UNIT/ML VIAL SQ SCH ×2 (05:31→18:05)
[2017-01-10 05:44] LABS: Potassium 5.6 mEq/L (3.5-4.5)
[2017-01-10] MEDS: Levofloxacin 750 MG/150 ML 750 MG/150 ML BAG IVPB SCH (07:32)
[2017-01-10] MEDS: Nicotine 21 MG PATCH.TD24 TD SCH (07:33)
[2017-01-10] MEDS: predniSONE 20 MG TABLET PO SCH (07:33)
[2017-01-10] MEDS: Cefepime HCl 2,000 MG in D5% in Water (Mini-Bag+) 100 ML IVPB SCH (07:33)
[2017-01-10] MEDS: Insulin LISPRO 300 UNITS/3 ML VIAL SQ SCH ×4 (07:34→21:14)
[2017-01-10] MEDS: 0.9 % Sodium Chloride 1,000 ML IVC SCH (11:18)
--- NOTE | 2017-01-10 13:01 | Internal Med Progress Note ---
Date of Encounter: 01/10/17 Time of Encounter: 13:00 - Assessment and plan (1) Sepsis Current Visit: No Status: Acute Assessment and plan: Sepsis secondary to community-acquired pneumonia Fever of 100.7 and white blood cell count of 20 Restarted Levaquin day 2, discontinue cefepime discontinue vancomycin Discontinue IV fluids due to mild volume overload Continue mild hydration Chest x-ray showed interstitial pulmonary edema versus pneumonia Qualifiers: Sepsis type: sepsis due to unspecified organism Qualified Code(s): A41.9 - Sepsis, unspecified organism (2) Community acquired pneumonia Current Visit: Yes Status: Acute Qualifiers: Laterality: unspecified laterality Qualified Code(s): J18.9 - Pneumonia, unspecified organism (3) Diabetes mellitus Current Visit: No Status: Chronic Assessment and plan: Continue insulin sliding scale Qualifiers: Diabetes mellitus type: type 2 Diabetes mellitus complication status: with hyperglycemia Diabetes mellitus 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 insulin use: with 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 use Qualified Code(s): E11.65 - Type 2 diabetes mellitus with hyperglycemia; Z79.4 - assisted (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 of insulin (4) COPD (chronic obstructive pulmonary disease) Current Visit: Yes Status: Chronic Assessment and plan: Mild acute COPD exacerbation secondary to community-acquired pneumonia Continue prednisone Qualifiers: COPD type: emphysema Emphysema type: unspecified Qualified Code(s): J43.9 - Emphysema, unspecified (5) Tobacco use Current Visit: No Status: Resolved Assessment and plan: Smoking cessation counseling, nicotine patch (6) Nicotine dependence with nicotine-induced disorder Current Visit: No Status: Chronic Qualifiers: Nicotine product type: cigarettes Qualified Code(s): F17.219 - Nicotine dependence, cigarettes, with unspecified nicotine-induced disorders (7) Morbid obesity with BMI of 45.0-49.9, adult Current Visit: No Status: Chronic (8) Dyslipidemia Current Visit: No Status: Chronic (9) Hyperkalemia Current Visit: Yes Status: Acute Assessment and plan: Ordered Kayexalate and recheck in the morning - Subjective Interval history: Feels better, complains of worsening cough, denies any chest pain, no fevers, no abdominal pain, no dysuria, no diarrhea - Constitutional Vitals: Temp Pulse Resp BP Pulse Ox 97.7 F 60 13 137/73 96 01/10/17 11:14 01/10/17 11:22 01/10/17 11:14 01/10/17 11:14 01/10/17 11:14 General appearance: Present: A&O X 3, morbidly obese, no acute distress, answers questions appropriately - Head Head exam: Present: atraumatic, normocephalic - Eye Eye exam: Present: PERRL, conjuntiva pink, sclera anicteric Pupils: Present: PERRL - Neck Neck exam general surgery: Present: supple, trachea midline. Absent: lymphadenopathy - Respiratory Respiratory exam: Present: CTAB, rales (Right basilar crackles). Absent: accessory muscle use, rhonchi, wheezes - Cardiovascular Cardiovascular exam: Present: RRR, +S1, +S2. Absent: diastolic murmur, gallop, rubs, systolic murmur - GI/Abdominal GI/Abdominal exam: Present: distended, normal bowel sounds, soft, no peritoneal signs. Absent: tenderness - Extremities Exam Extremities exam: Present: warm, radial pulses palpable and symmetrical. Absent : calf tenderness, cyanotic, pedal edema - Neurological Exam Neurological exam: Present: CN II-XII intact, oriented X3, no focal deficits. Absent: pronater drift, facial droop, speech deficit - Skin Skin exam: Present: dry, intact Internal Medicine: Result - Labs CBC & Chem 7: 01/10/17 04:49 01/10/17 04:49 Labs: Short CBC 01/10/17 Range/Units 04:49 WBC 13.9 H (4.3-11.1) K/mcL Hgb 13.8 (11.5-15.4) g/dL Hct 44.3 (35.3-44.9) % Plt Count 205 (140-400) K/mcL [facility] 01/10/17 04:49 Sodium 139 Potassium 5.6 H Chloride 104 Carbon Dioxide 28 BUN 30 H Creatinine 1.14 H Glucose 163 H Calcium 9.0 - ABG Interpretation ABG results: PT/INR, D-dimer PT 11.0 Seconds (9.4-12.1) 01/08/17 21:51 Consult Discharge Plan - Plan Referrals: Dimitris Villaseñor CNP [Primary Care Provider] - 01/15/17 1:30 pm ()
--- NOTE | 2017-01-10 17:04 | Electrocardiograph Report ---
[place] [id number] Test Date: 2017-01-08 Pat Name: Carey Yang Department: 104 Room: 2N13 Gender: F Mon[place] Carver: BROWN : 1955 Requested By: Tino Leger Order Number: [id number] Reading MD: Magui Sinclair Measurements Intervals [place] Rate: 72 P: 21 SD: 148 QRS: 18 QRSD: 93 T: 61 QT: 418 QTc: 443 Interpretive Statements SINUS RHYTHM Electronically Signed On 01-10-2017 17:03:00 EDT by Magui Sinclair
--- NOTE | 2017-01-10 20:18 | Carotid Imaging Report ---
Carotid Duplex Patient Name:Carey Yang Order Number:[id number] Procedure Date:01/09/2017 Date:1955ge:61 yrs Gender:Female Location:[facility] Room #: Puff Ironer:Iam Loyola RDLEIGHTON Referring MD:Sydnee Eden PA-C hammer driver:Elena Villaseñor, PUSHCART PEDDLER Reading MD:Rafa Manjarrez MD Primary Indications:Falls Risk Factors Yes/No Hypertension Yes Diabetes Yes Hypercholesterolemia Yes Smoking Current Yes Impressions: The right internal carotid artery has a 60-79% stenosis. The left internal carotid artery has a 40-59% stenosis. Recommendations: Risk factor reduction. Further evaluation recommended if clinically indicated. Follow-up carotid duplex in 1 year. After imaging the patient returned to their room. High velocities may be d/t Tortuous bilateral ICA. TDS d/t pt body habitus and cooperation. Findings Carotid Duplex: Right: The right proximal common carotid artery has a PSV of 116 cm/s and a EDV of 12 cm/s. The right mid common carotid artery has a PSV of 83 cm/s and a EDV of 9 cm/s. There is nonstenotic plaque in the right distal common carotid artery with a PSV of 54 cm/s and a EDV of 10 cm/s. There is smooth heterogeneous plaque. There is nonstenotic plaque in the right bifurcation with a PSV of 46 cm/s and a EDV of 13 cm/s. There is smooth calcified plaque. There is 60-79% stenosis in the right proximal internal carotid artery with a PSV of 183 cm/s and a EDV of 44 cm/s. There is calcified plaque. The right mid internal carotid artery has a PSV of 85 cm/s and a EDV of 27 cm/s. The right distal internal carotid artery has a PSV of 62 cm/s and a EDV of 19 cm/s. The right eca has a PSV of 122 cm/s and a EDV of 16 cm/s. The right vertebral artery has a PSV of 59 cm/s and a EDV of 12 cm/s. Left: The left proximal common carotid artery has a PSV of 176 cm/s and a EDV of 17 cm/s. There is nonstenotic plaque in the left mid common carotid artery with a PSV of 105 cm/s and a EDV of 11 cm/s. There is smooth heterogeneous plaque. There is nonstenotic plaque in the left distal common carotid artery with a PSV of 76 cm/s and a EDV of 11 cm/s. There is smooth calcified plaque. There is nonstenotic plaque in the left bifurcation with a PSV of 62 cm/s and a EDV of 10 cm/s. There is smooth calcified plaque. There is nonstenotic plaque in the left proximal internal carotid artery with a PSV of 79 cm/s and a EDV of 22 cm/s. There is 40-59% stenosis in the left mid internal carotid artery with a PSV of 122 cm/s and a EDV of 35 cm/s. The left distal internal carotid artery has a PSV of 107 cm/s and a EDV of 26 cm/s. The left eca has a PSV of 61 cm/s and a EDV of 8 cm/s. The left vertebral artery has a PSV of 39 cm/s and a EDV of 11 cm/s. Carotid Results Right PSV EDV Assessment Proximal CCA 116 12 Normal Mid CCA 83 9 Normal Distal CCA 54 10 Non Stenotic Plaque Bifurcation 46 13 Non Stenotic Plaque Proximal ICA 183 44 60-79% stenosis Mid ICA 85 27 Normal Distal ICA 62 19 Normal ECA 122 16 Normal Vertebral Artery 59 12 Normal Left PSV EDV Assessment Proximal CCA 176 17 Normal Mid CCA 105 11 Non Stenotic Plaque Distal CCA 76 11 Non Stenotic Plaque Bifurcation 62 10 Non Stenotic Plaque Proximal ICA 79 22 Non Stenotic Plaque Mid ICA 122 35 40-59% stenosis Distal ICA 107 26 Normal ECA 61 8 Normal Vertebral Artery 39 11 Normal Ratio's Right ICA/CCA Ratio: 2.20 ICA/CCA Values: 183/83 Left ICA/CCA Ratio: 1.16 ICA/CCA Values: 122/105 Updated by Rafa Manjarrez MD on 01/10/2017 8:11:46 PM electronically signed on 01/10/2017 8:12:02 PM with status of Final
[2017-01-10] MEDS: Ondansetron 4 MG/2 ML VIAL IVP PRN (21:14)
[2017-01-10] MEDS: Insulin DETEMIR 100 UNIT/ML X5UNITS SQ SCH (21:21)
[2017-01-11] MEDS: Ipratropium/Albuterol Neb 3 ML IH SCH ×5 (03:39→22:52)
[2017-01-11] MEDS: *HR* Morphine 2 MG/ML SYRINGE IVP PRN ×4 (04:17→22:18)
[2017-01-11] MEDS: *HR* Heparin 5,000 UNIT/ML VIAL SQ SCH ×2 (06:54→18:01)
[2017-01-11 08:09] LABS: Calcium 9.2 mg/dL (8.6-10.8)
[2017-01-11] MEDS: Insulin LISPRO 300 UNITS/3 ML VIAL SQ SCH ×6 (08:24→21:48)
[2017-01-11] MEDS: Nicotine 21 MG PATCH.TD24 TD SCH (08:24)
[2017-01-11] MEDS: predniSONE 20 MG TABLET PO SCH (08:25)
[2017-01-11] MEDS: Levofloxacin 750 MG/150 ML 750 MG/150 ML BAG IVPB SCH (08:25)
--- NOTE | 2017-01-11 08:36 | Internal Med Progress Note ---
Date of Encounter: 01/11/17 Time of Encounter: 08:33 - Assessment and plan (1) Sepsis Current Visit: No Status: Acute Assessment and plan: acute on chronic Hypoxic respiratory failure due to Sepsis secondary to community-acquired pneumonia Fever of 100.7 and white blood cell count of 20 desaturated down to 85% on 4 Lt stop prednisone, start solumedrol Restarted Levaquin day 3, discontinued cefepime discontinued vancomycin Discontinued IV fluids due to mild volume overload Chest x-ray showed interstitial pulmonary edema versus pneumonia Qualifiers: Sepsis type: sepsis due to unspecified organism Qualified Code(s): A41.9 - Sepsis, unspecified organism (2) Community acquired pneumonia Current Visit: Yes Status: Acute Qualifiers: Laterality: unspecified laterality Qualified Code(s): J18.9 - Pneumonia, unspecified organism (3) Diabetes mellitus Current Visit: No Status: Chronic Assessment and plan: Continue insulin sliding scale Qualifiers: Diabetes mellitus type: type 2 Diabetes mellitus complication status: with hyperglycemia 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: with longterm use Qualified Code(s): E11.65 - Type 2 diabetes mellitus with hyperglycemia; Z79.4 - manager intermediate (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 of insulin (4) COPD (chronic obstructive pulmonary disease) Current Visit: Yes Status: Chronic Assessment and plan: acute COPD exacerbation secondary to community-acquired pneumonia solumedrol Qualifiers: COPD type: emphysema Emphysema type: unspecified Qualified Code(s): J43.9 - Emphysema, unspecified (5) Tobacco use Current Visit: No Status: Resolved Assessment and plan: Smoking cessation counseling, nicotine patch (6) Nicotine dependence with nicotine-induced disorder Current Visit: No Status: Chronic Qualifiers: Nicotine product type: cigarettes Qualified Code(s): F17.219 - Nicotine dependence, cigarettes, with unspecified nicotine-induced disorders (7) Morbid obesity with BMI of 45.0-49.9, adult Current Visit: No Status: Chronic (8) Dyslipidemia Current Visit: No Status: Chronic (9) Hyperkalemia Current Visit: Yes Status: Acute Assessment and plan: repeat Kayexalate and recheck in the morning - Subjective Interval history: Feeling SOB, complains of worsening cough, denies any chest pain, no fevers, no abdominal pain, no dysuria, no diarrhea - Constitutional Vitals: Temp Pulse Resp BP Pulse Ox 98.4 F 73 22 131/60 91 01/11/17 07:42 01/11/17 07:42 01/11/17 07:42 01/11/17 07:42 01/11/17 07:42 General appearance: Present: A&O X 3, morbidly obese, no acute distress, answers questions appropriately - Head Head exam: Present: atraumatic, normocephalic - Eye Eye exam: Present: PERRL, conjuntiva pink, sclera anicteric Pupils: Present: PERRL - Neck Neck exam general surgery: Present: supple, trachea midline. Absent: lymphadenopathy - Respiratory Respiratory exam: Present: decreased breath sounds (very diminished, fine wheezing), CTAB, wheezes. Absent: accessory muscle use, rales, rhonchi - Cardiovascular Cardiovascular exam: Present: RRR, +S1, +S2. Absent: diastolic murmur, gallop, rubs, systolic murmur - GI/Abdominal GI/Abdominal exam: Present: normal bowel sounds, soft, no peritoneal signs. Absent: distended, tenderness - Extremities Exam Extremities exam: Present: pedal edema, warm, radial pulses palpable and symmetrical. Absent: calf tenderness, cyanotic - Neurological Exam Neurological exam: Present: CN II-XII intact, oriented X3, no focal deficits. Absent: pronater drift, facial droop, speech deficit - Skin Skin exam: Present: dry, intact Internal Medicine: Result - Labs CBC & Chem 7: 01/10/17 04:49 01/11/17 07:24 Labs: BMP 01/11/17 07:24 Sodium 143 Potassium 5.0 H Chloride 104 Carbon Dioxide 34 H BUN 35 H Creatinine 1.14 H Glucose 182 H Calcium 9.2 - ABG Interpretation ABG results: PT/INR, D-dimer PT 11.0 Seconds (9.4-12.1) 01/08/17 21:51 Consult Discharge Plan - Plan Referrals: Dimitris Villaseñor CNP [Primary Care Provider] - 01/15/17 1:30 pm ()
[2017-01-11] MEDS: MethylPREDNISolone 40 MG/ML VIAL IVP SCH ×2 (15:48→23:07)
[2017-01-11] MEDS: Ondansetron 4 MG/2 ML VIAL IVP PRN (15:48)
[2017-01-11 16:11] LABS: ABG Base Excess 4.1 mEq/L (-2.0 to 3.0); ABG HCO3 35 mEq/L (21-27); ABG Oxygen Saturation 87 % (95-98); ABG PH 7.23 pH Units (7.32-7.45); ABG PO2 63 mmHg (85-104); ABG TCO2 37.3 mEq/L (20-26)
[2017-01-11 16:14] LABS: ABG PCO2 83 mmHg (35-45)
[2017-01-11] MEDS: Cefepime HCl 1,000 MG in D5% in Water (Mini-Bag+) 100 ML IVPB SCH ×2 (18:01→18:02)
[2017-01-11] MEDS: Furosemide 40 MG/4 ML VIAL IVP SCH ×2 (18:01→22:06)
[2017-01-11] MEDS: Insulin DETEMIR 100 UNIT/ML X5UNITS SQ SCH (22:07)
[2017-01-12] MEDS: Ipratropium/Albuterol Neb 3 ML IH SCH ×4 (04:03→22:44)
[2017-01-12] MEDS: Cefepime HCl 1,000 MG in D5% in Water (Mini-Bag+) 100 ML IVPB SCH ×2 (05:33→17:36)
[2017-01-12] MEDS: *HR* Heparin 5,000 UNIT/ML VIAL SQ SCH ×2 (05:34→18:42)
[2017-01-12] MEDS: *HR* Morphine 2 MG/ML SYRINGE IVP PRN ×5 (05:55→23:22)
[2017-01-12] MEDS: Levofloxacin 750 MG/150 ML 750 MG/150 ML BAG IVPB SCH (08:51)
[2017-01-12] MEDS: MethylPREDNISolone 40 MG/ML VIAL IVP SCH ×3 (08:51→23:19)
[2017-01-12] MEDS: Nicotine 21 MG PATCH.TD24 TD SCH (08:52)
[2017-01-12] MEDS: Insulin LISPRO 300 UNITS/3 ML VIAL SQ SCH ×7 (08:52→20:42)
[2017-01-12] MEDS: Furosemide 40 MG/4 ML VIAL IVP SCH ×2 (08:52→17:35)
[2017-01-12 12:57] LABS: Potassium 5.3 mEq/L (3.5-4.5)
--- NOTE | 2017-01-12 15:19 | Internal Med Progress Note ---
Date of Encounter: 01/12/17 Time of Encounter: 15:15 - Assessment and plan (1) Sepsis Current Visit: No Status: Acute Assessment and plan: Acute on chronic hypoxic hypercapnic respiratory failure secondary to acute COPD exacerbation due to sepsis from community-acquired pneumonia in combination with volume overload from his multiple bilateral pleural effusions with recent history of interstitial pulmonary edema Increase frequency of Lasix IV, may use BiPAP, resume cefepime day 2, consider resuming vancomycin Levaquin day 4 continue solumedrol Fever of 100.7 and white blood cell count of 20 desaturated down to 85% on 4 Lt discontinued vancomycin Discontinued IV fluids due tovolume overload Chest x-ray showed interstitial pulmonary edema versus pneumonia CT scan report showed dependent atelectasis, but there is a possible right lower lobe infiltrate not reported in the CT, some pulm edema present Qualifiers: Sepsis type: sepsis due to unspecified organism Qualified Code(s): A41.9 - Sepsis, unspecified organism (2) Community acquired pneumonia Current Visit: Yes Status: Acute Qualifiers: Laterality: unspecified laterality Qualified Code(s): J18.9 - Pneumonia, unspecified organism (3) Diabetes mellitus Current Visit: No Status: Chronic Assessment and plan: Continue insulin sliding scale Qualifiers: Diabetes mellitus type: type 2 Diabetes mellitus complication status: with hyperglycemia Diabetes mellitus residential insulin use: with residential use Qualified Code(s): E11.65 - Type 2 diabetes mellitus with hyperglycemia; Z79.4 - detention (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 of insulin (4) COPD (chronic obstructive pulmonary disease) Current Visit: Yes Status: Chronic Assessment and plan: acute COPD exacerbation secondary to community-acquired pneumonia solumedrol Qualifiers: COPD type: emphysema Emphysema type: unspecified Qualified Code(s): J43.9 - Emphysema, unspecified (5) Tobacco use Current Visit: No Status: Resolved Assessment and plan: Smoking cessation counseling, nicotine patch (6) Nicotine dependence with nicotine-induced disorder Current Visit: No Status: Chronic Qualifiers: Nicotine product type: cigarettes Qualified Code(s): F17.219 - Nicotine dependence, cigarettes, with unspecified nicotine-induced disorders (7) Morbid obesity with BMI of 45.0-49.9, adult Current Visit: No Status: Chronic (8) Dyslipidemia Current Visit: No Status: Chronic (9) Hyperkalemia Current Visit: Yes Status: Acute Assessment and plan: repeat Kayexalate and recheck in the morning - Subjective Interval history: Requiring 12.5 Lt high flow nasal cannula. Feeling SOB, complains of worsening cough, denies any chest pain, no fevers, no abdominal pain, no dysuria, no diarrhea - Constitutional Vitals: Temp Pulse Resp BP Pulse Ox 97.1 F L 65 20 170/73 90 01/12/17 11:29 01/12/17 11:29 01/12/17 11:29 01/12/17 11:01/12/17 11:29 General appearance: Present: A&O X 3, morbidly obese, no acute distress, answers questions appropriately - Head Head exam: Present: atraumatic, normocephalic - Eye Eye exam: Present: PERRL, conjuntiva pink, sclera anicteric Pupils: Present: PERRL - Neck Neck exam general surgery: Present: supple, trachea midline. Absent: lymphadenopathy - Respiratory Respiratory exam: Present: CTAB, rales (diffuse crackles). Absent: accessory muscle use, rhonchi, wheezes - Cardiovascular Cardiovascular exam: Present: RRR, +S1, +S2. Absent: diastolic murmur, gallop, rubs, systolic murmur - GI/Abdominal GI/Abdominal exam: Present: normal bowel sounds, soft, no peritoneal signs. Absent: distended, tenderness - Extremities Exam Extremities exam: Present: pedal edema, warm, radial pulses palpable and symmetrical. Absent: calf tenderness, cyanotic - Neurological Exam Neurological exam: Present: CN II-XII intact, oriented X3, no focal deficits. Absent: pronater drift, facial droop, speech deficit - Skin Skin exam: Present: dry, intact Additional comments: keane catheter Internal Medicine: Result - Labs CBC & Chem 7: 01/10/17 04:49 01/12/17 08:12 Labs: BMP 01/12/17 08:12 Sodium 145 Potassium 5.3 H Chloride 104 Carbon Dioxide 25 BUN 42 H Creatinine 1.22 H Glucose 350 H Calcium 9.0 - ABG Interpretation ABG results: ABG ABG pH 7.23 pH Units (7.32-7.45) L 01/11/17 15:55 ABG pCO2 83 mmHg (35-45) H* 01/11/17 15:55 ABG pO2 63 mmHg (85-104) L 01/11/17 15:55 ABG O2 Saturation 87 % (95-98) L 01/11/17 15:55 PT/INR, D-dimer PT 11.0 Seconds (9.4-12.1) 01/08/17 21:51 - Impressions Impressions Chest CT 01/11/17 15:49 IMPRESSION: 1. No acute cardiopulmonary process. 2. Borderline cardiomegaly with atherosclerotic vascular calcifications. 3. Dependent atelectasis in the lungs bilaterally. D/ / Tawanda Casanova MD / Tawanda Casanova MD Interpreting Provider: Tawanda Casanova MD Consult Discharge Plan - Plan Referrals: Dimitris Villaseñor CNP [Primary Care Provider] - 01/15/17 1:30 pm ()
[2017-01-12] MEDS: Gabapentin 300 MG CAPSULE PO SCH (19:41)
[2017-01-12] MEDS: Insulin DETEMIR 100 UNIT/ML X5UNITS SQ SCH (20:41)
[2017-01-13 01:57] LABS: Hematocrit 44.7 % (35.3-44.9); Hemoglobin 13.7 g/dL (11.5-15.4); Immature Platelets 3.1 % (1.1-6.1); Mean Corpuscular HGB Conc 30.6 g/dL (31.6-35.5); Mean Corpuscular Hemoglobin 29.6 pg (28.0-33.3); Mean Corpuscular Volume 96.5 fL (83.0-100.0); Red Blood Count 4.63 M/mcL (3.82-4.97); Red Cell Distribution Width 15.5 % (11.5-14.5)
[2017-01-13] MEDS: *HR* Morphine 2 MG/ML SYRINGE IVP PRN ×3 (02:31→11:55)
[2017-01-13] MEDS: Ipratropium/Albuterol Neb 3 ML IH SCH ×4 (04:25→22:06)
[2017-01-13 05:09] LABS: BUN/Creatinine Ratio 45 (6-26); Blood Urea Nitrogen 49 mg/dL (7-20); Calcium 8.5 mg/dL (8.6-10.8); Carbon Dioxide 32 mEq/L (19-29); Chloride 102 mEq/L (98-109); Glucose 322 mg/dL (70-99); Osmolality,Calculated 321 (280-300); Potassium 4.3 mEq/L (3.5-4.5); Sodium 143 mEq/L (136-145); eGFR For African Americans > 60 (> 60); eGFR For Non-African Americans 51 (> 60)
[2017-01-13] MEDS: Levothyroxine 25 MCG TABLET PO SCH (06:16)
[2017-01-13] MEDS: *HR* Heparin 5,000 UNIT/ML VIAL SQ SCH ×2 (06:17→17:10)
[2017-01-13] MEDS: Cefepime HCl 1,000 MG in D5% in Water (Mini-Bag+) 100 ML IVPB SCH ×2 (06:17→17:10)
[2017-01-13] MEDS: MethylPREDNISolone 40 MG/ML VIAL IVP SCH ×2 (09:19→17:09)
[2017-01-13] MEDS: Furosemide 40 MG/4 ML VIAL IVP SCH ×3 (09:20→17:09)
[2017-01-13] MEDS: Aspirin Enteric Coated 325 MG Tablet PO SCH (09:20)
[2017-01-13] MEDS: FLUoxetine 20 MG CAPSULE PO SCH (09:20)
[2017-01-13] MEDS: Levofloxacin 750 MG/150 ML 750 MG/150 ML BAG IVPB SCH (09:20)
[2017-01-13] MEDS: Gabapentin 300 MG CAPSULE PO SCH ×3 (09:21→20:32)
[2017-01-13] MEDS: Nicotine 21 MG PATCH.TD24 TD SCH (09:21)
[2017-01-13] MEDS: Folic Acid 1 MG TABLET PO SCH (09:21)
[2017-01-13] MEDS: Insulin LISPRO 300 UNITS/3 ML VIAL SQ SCH ×7 (09:22→20:34)
--- NOTE | 2017-01-13 11:27 | Internal Med Progress Note ---
Date of Encounter: 01/13/17 Time of Encounter: 11:25 - Assessment and plan (1) Sepsis Current Visit: No Status: Acute Assessment and plan: Acute on chronic hypoxic hypercapnic respiratory failure secondary to acute COPD exacerbation due to sepsis from community-acquired pneumonia in combination with volume overload from his multiple bilateral pleural effusions with recent history of interstitial pulmonary edema Increased frequency of Lasix IV, may use BiPAP, resumed cefepime day 3, consider resuming vancomycin Levaquin day [address] ANGIO ( hx of DVF, as IVC filter Fever of 100.7 and white blood cell count of 20 desaturated down to 85% on 4 Lt discontinued vancomycin Discontinued IV fluids due tovolume overload Chest x-ray showed interstitial pulmonary edema versus pneumonia CT scan report showed dependent atelectasis, but there is a possible right lower lobe infiltrate not reported in the CT, some pulm edema present Qualifiers: Sepsis type: sepsis due to unspecified organism Qualified Code(s): A41.9 - Sepsis, unspecified organism (2) Community acquired pneumonia Current Visit: Yes Status: Acute Qualifiers: Laterality: unspecified laterality Qualified Code(s): J18.9 - Pneumonia, unspecified organism (3) Diabetes mellitus Current Visit: No Status: Chronic Assessment and plan: Continue insulin sliding scale Qualifiers: Diabetes mellitus type: type 2 Diabetes mellitus complication status: with hyperglycemia Diabetes mellitus assisted insulin use: with rat exterminator use Qualified Code(s): E11.65 - Type 2 diabetes mellitus with hyperglycemia; 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 (4) COPD (chronic obstructive pulmonary disease) Current Visit: Yes Status: Chronic Assessment and plan: acute COPD exacerbation secondary to community-acquired pneumonia solumedrol Qualifiers: COPD type: emphysema Emphysema type: unspecified Qualified Code(s): J43.9 - Emphysema, unspecified (5) Tobacco use Current Visit: No Status: Resolved Assessment and plan: Smoking cessation counseling, nicotine patch (6) Nicotine dependence with nicotine-induced disorder Current Visit: No Status: Chronic Qualifiers: Nicotine product type: cigarettes Qualified Code(s): F17.219 - Nicotine dependence, cigarettes, with unspecified nicotine-induced disorders (7) Morbid obesity with BMI of 45.0-49.9, adult Current Visit: No Status: Chronic (8) Dyslipidemia Current Visit: No Status: Chronic (9) Hyperkalemia Current Visit: Yes Status: Acute Assessment and plan: resolved after seveeral doses of Kayexalate - Subjective Interval history: Requiring 6 Lt high flow nasal cannula. Feeling SOB, complains of worsening cough, denies any chest pain, no fevers, no abdominal pain, no dysuria, no diarrhea - Constitutional Vitals: Temp Pulse Resp BP Pulse Ox 98.0 F 75 18 159/73 98 01/13/17 07:39 01/13/17 07:39 01/13/17 07:39 01/13/17 07:39 01/13/17 07:39 General appearance: Present: A&O X 3, morbidly obese, no acute distress, answers questions appropriately Exam: - Head Head exam: Present: atraumatic, normocephalic - Eye Eye exam: Present: PERRL, conjuntiva pink, sclera anicteric Pupils: Present: PERRL - Neck Neck exam general surgery: Present: supple, trachea midline. Absent: lymphadenopathy - Respiratory Respiratory exam: Present: CTAB, rales (diffuse crackles). Absent: accessory muscle use, rhonchi, wheezes - Cardiovascular Cardiovascular exam: Present: RRR, +S1, +S2. Absent: diastolic murmur, gallop, rubs, systolic murmur - GI/Abdominal GI/Abdominal exam: Present: normal bowel sounds, soft, no peritoneal signs. Absent: distended, tenderness - Extremities Exam Extremities exam: Present: pedal edema, warm, radial pulses palpable and symmetrical. Absent: calf tenderness, cyanotic - Neurological Exam Neurological exam: Present: CN II-XII intact, oriented X3, no focal deficits. Absent: pronater drift, facial droop, speech deficit - Skin Skin exam: Present: dry, intact Additional comments: keane catheter Internal Medicine: Result - Labs CBC & Chem 7: 01/13/17 01:49 01/13/17 03:44 Labs: Short CBC 01/13/17 Range/Units 01:49 WBC 13.0 H (4.3-11.1) K/mcL Hgb 13.7 (11.5-15.4) g/dL Hct 44.7 (35.3-44.9) % Plt Count 236 (140-400) K/mcL BMP 01/12/17 01/13/17 08:12 03:44 Sodium 145 143 Potassium 5.3 H 4.3 D Chloride 104 102 Carbon Dioxide 25 32 H BUN 42 H 49 H Creatinine 1.22 H 1.10 Glucose 350 H 322 H Calcium 9.0 8.5 L - ABG Interpretation ABG results: ABG ABG pH 7.23 pH Units (7.32-7.45) L 01/11/17 15:55 ABG pCO2 83 mmHg (35-45) H* 01/11/17 15:55 ABG pO2 63 mmHg (85-104) L 01/11/17 15:55 ABG O2 Saturation 87 % (95-98) L 01/11/17 15:55 PT/INR, D-dimer PT 11.0 Seconds (9.4-12.1) 01/08/17 21:51 Consult Discharge Plan - Plan Referrals: Dimitris Villaseñor, JARRETT [Primary Care Provider] - 01/15/17 1:30 pm ()
[2017-01-13] MEDS: Insulin DETEMIR 100 UNIT/ML X5UNITS SQ SCH ×2 (13:03→20:37)
[2017-01-14] MEDS: *HR* Morphine 2 MG/ML SYRINGE IVP PRN (01:19)
[2017-01-14] MEDS: MethylPREDNISolone 40 MG/ML VIAL IVP SCH ×3 (01:19→20:39)
[2017-01-14] MEDS: Ipratropium/Albuterol Neb 3 ML IH SCH ×4 (04:57→21:19)
[2017-01-14] MEDS: Levothyroxine 25 MCG TABLET PO SCH (06:22)
[2017-01-14] MEDS: *HR* Heparin 5,000 UNIT/ML VIAL SQ SCH ×2 (06:23→17:01)
[2017-01-14] MEDS: Cefepime HCl 1,000 MG in D5% in Water (Mini-Bag+) 100 ML IVPB SCH ×2 (06:24→18:39)
[2017-01-14 06:34] LABS: Hematocrit 45.1 % (35.3-44.9); Mean Corpuscular Volume 96.6 fL (83.0-100.0); Mean Platelet Volume 9.6 fL (9.4-12.4); Platelet Count 239 K/mcL (140-400); Red Blood Count 4.67 M/mcL (3.82-4.97); Red Cell Distribution Width 15.2 % (11.5-14.5)
[2017-01-14 06:47] LABS: Calcium 8.9 mg/dL (8.6-10.8); Potassium 4.3 mEq/L (3.5-4.5)
[2017-01-14] MEDS: Insulin LISPRO 300 UNITS/3 ML VIAL SQ SCH ×8 (08:00→20:40)
[2017-01-14] MEDS: Insulin DETEMIR 100 UNIT/ML X5UNITS SQ SCH ×2 (08:01→20:39)
[2017-01-14] MEDS: Furosemide 40 MG/4 ML VIAL IVP SCH ×3 (08:02→17:01)
[2017-01-14] MEDS: Levofloxacin 750 MG/150 ML 750 MG/150 ML BAG IVPB SCH (08:02)
[2017-01-14] MEDS: Folic Acid 1 MG TABLET PO SCH (08:03)
[2017-01-14] MEDS: Gabapentin 300 MG CAPSULE PO SCH ×3 (08:04→20:40)
[2017-01-14] MEDS: Aspirin Enteric Coated 325 MG Tablet PO SCH (08:04)
[2017-01-14] MEDS: Nicotine 21 MG PATCH.TD24 TD SCH (08:04)
[2017-01-14] MEDS: FLUoxetine 20 MG CAPSULE PO SCH (08:04)
[2017-01-14] MEDS ORDERED: OxyCODONE CONC 5 MG/0.25 ML ORAL.SYG PO PRN (10:46)
--- NOTE | 2017-01-14 10:50 | Internal Med Progress Note ---
Date of Encounter: 01/14/17 Time of Encounter: 10:47 - Assessment and plan (1) Sepsis Current Visit: No Status: Acute Assessment and plan: Acute on chronic hypoxic hypercapnic respiratory failure secondary to acute COPD exacerbation due to sepsis from community-acquired pneumonia in combination with volume overload from his multiple bilateral pleural effusions with recent history of interstitial pulmonary edema Hx of DVT and IVC filter placed Increased frequency of Lasix IV to 40 mg IV TID, may use BiPAP, Continue cefepime day 4 Levaquin day [address] ANGIO showed no PE , has tracheomalacia Fever of 100.7 and white blood cell count of 20 desaturated down to 85% on 4 Lt discontinued vancomycin Discontinued IV fluids due to volume overload Chest x-ray showed interstitial pulmonary edema versus pneumonia CT scan report showed dependent atelectasis, but there is a possible right lower lobe infiltrate not reported in the CT, some pulm edema present CTA chest: IMPRESSION: No evidence of pulmonary embolism or acute pulmonary abnormality. Tracheomalacia. Right lower outer breast asymmetry. Physical examination of the right breast for any palpable masses. Qualifiers: Sepsis type: sepsis due to unspecified organism Qualified Code(s): A41.9 - Sepsis, unspecified organism (2) Community acquired pneumonia Current Visit: Yes Status: Acute Qualifiers: Laterality: unspecified laterality Qualified Code(s): J18.9 - Pneumonia, unspecified organism (3) Diabetes mellitus Current Visit: No Status: Chronic Assessment and plan: Continue insulin sliding scale Qualifiers: Diabetes mellitus type: type 2 Diabetes mellitus complication status: with hyperglycemia Diabetes mellitus residential insulin use: with residential use Qualified Code(s): E11.65 - Type 2 diabetes mellitus with hyperglycemia; 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 (4) COPD (chronic obstructive pulmonary disease) Current Visit: Yes Status: Chronic Assessment and plan: acute COPD exacerbation secondary to community-acquired pneumonia solumedrol Qualifiers: COPD type: emphysema Emphysema type: unspecified Qualified Code(s): J43.9 - Emphysema, unspecified (5) Tobacco use Current Visit: No Status: Resolved Assessment and plan: Smoking cessation counseling, nicotine patch (6) Nicotine dependence with nicotine-induced disorder Current Visit: No Status: Chronic Qualifiers: Nicotine product type: cigarettes Qualified Code(s): F17.219 - Nicotine dependence, cigarettes, with unspecified nicotine-induced disorders (7) Morbid obesity with BMI of 45.0-49.9, adult Current Visit: No Status: Chronic (8) Dyslipidemia Current Visit: No Status: Chronic (9) Hyperkalemia Current Visit: Yes Status: Acute Assessment and plan: resolved after several doses of Kayexalate - Subjective Interval history: Still requiring 6 Lt high flow nasal cannula. Feeling SOB, complains of worsening cough, denies any chest pain, no fevers, no abdominal pain, no dysuria, no diarrhea - Constitutional Vitals: Temp Pulse Resp BP Pulse Ox 98.1 F 58 18 152/77 90 01/14/17 07:13 01/14/17 07:13 01/14/17 07:13 01/14/17 07:13 01/14/17 07:13 General appearance: Present: A&O X 3, morbidly obese, no acute distress, answers questions appropriately Exam: - Head Head exam: Present: atraumatic, normocephalic - Eye Eye exam: Present: PERRL, conjuntiva pink, sclera anicteric Pupils: Present: PERRL - Neck Neck exam general surgery: Present: supple, trachea midline. Absent: lymphadenopathy - Respiratory Respiratory exam: Present: CTAB, rales (diffuse crackles). Absent: accessory muscle use, rhonchi, wheezes - Cardiovascular Cardiovascular exam: Present: RRR, +S1, +S2. Absent: diastolic murmur, gallop, rubs, systolic murmur - GI/Abdominal GI/Abdominal exam: Present: normal bowel sounds, soft, no peritoneal signs. Absent: distended, tenderness - Extremities Exam Extremities exam: Present: pedal edema, warm, radial pulses palpable and symmetrical. Absent: calf tenderness, cyanotic - Neurological Exam Neurological exam: Present: CN II-XII intact, oriented X3, no focal deficits. Absent: pronater drift, facial droop, speech deficit - Skin Skin exam: Present: dry, intact Additional comments: keane catheter Internal Medicine: Result - Labs CBC & Chem 7: 01/14/17 04:59 01/14/17 04:59 Labs: Short CBC 01/14/17 Range/Units 04:59 WBC 11.1 (4.3-11.1) K/mcL Hgb 14.0 (11.5-15.4) g/dL Hct 45.1 H (35.3-44.9) % Plt Count 239 (140-400) K/mcL BMP 01/14/17 04:59 Sodium 141 Potassium 4.3 Chloride 100 Carbon Dioxide 33 H BUN 61 H Creatinine 1.25 H Glucose 321 H Calcium 8.9 - ABG Interpretation ABG results: ABG ABG pH 7.23 pH Units (7.32-7.45) L 01/11/17 15:55 ABG pCO2 83 mmHg (35-45) H* 01/11/17 15:55 ABG pO2 63 mmHg (85-104) L 01/11/17 15:55 ABG O2 Saturation 87 % (95-98) L 01/11/17 15:55 PT/INR, D-dimer PT 11.0 Seconds (9.4-12.1) 01/08/17 21:51 - Impressions Impressions Chest CTA 01/13/17 11:22 IMPRESSION: No evidence of pulmonary embolism or acute pulmonary abnormality. Tracheomalacia. Right lower outer breast asymmetry. Physical examination of the right breast for any palpable masses. D/ / 01/13/2017 14:34:33 Erlin Collazo MD / Leatha Maki Interpreting Provider: Erlin Collazo MD Consult Discharge Plan - Plan Referrals: Dimitris Villaseñor CNP [Primary Care Provider] - 01/15/17 1:30 pm ()
[2017-01-14] MEDS: *HR* OxyCODONE Immed Rel 5 MG TABLET PO PRN ×2 (14:27→20:40)
[2017-01-15 03:48] LABS: Hematocrit 45.5 % (35.3-44.9); Mean Corpuscular HGB Conc 30.8 g/dL (31.6-35.5); Mean Corpuscular Hemoglobin 28.5 pg (28.0-33.3); Mean Corpuscular Volume 92.7 fL (83.0-100.0); Platelet Count 231 K/mcL (140-400); Red Blood Count 4.91 M/mcL (3.82-4.97); Red Cell Distribution Width 14.6 % (11.5-14.5)
[2017-01-15 04:00] LABS: Calcium 8.9 mg/dL (8.6-10.8); Potassium 4.2 mEq/L (3.5-4.5)
[2017-01-15] MEDS: Ipratropium/Albuterol Neb 3 ML IH SCH ×4 (04:49→22:54)
[2017-01-15] MEDS: Levothyroxine 25 MCG TABLET PO SCH (05:12)
[2017-01-15] MEDS: *HR* Heparin 5,000 UNIT/ML VIAL SQ SCH ×2 (05:12→17:23)
[2017-01-15] MEDS: *HR* OxyCODONE Immed Rel 5 MG TABLET PO PRN ×3 (05:12→23:17)
[2017-01-15] MEDS: Cefepime HCl 1,000 MG in D5% in Water (Mini-Bag+) 100 ML IVPB SCH (05:13)
[2017-01-15] MEDS: Insulin LISPRO 300 UNITS/3 ML VIAL SQ SCH ×6 (07:53→17:24)
[2017-01-15] MEDS: MethylPREDNISolone 40 MG/ML VIAL IVP SCH ×2 (08:22→21:15)
[2017-01-15] MEDS: Furosemide 40 MG/4 ML VIAL IVP SCH ×3 (08:22→17:24)
[2017-01-15] MEDS: Gabapentin 300 MG CAPSULE PO SCH ×3 (08:22→21:16)
[2017-01-15] MEDS: FLUoxetine 20 MG CAPSULE PO SCH (08:22)
[2017-01-15] MEDS: Aspirin Enteric Coated 325 MG Tablet PO SCH (08:22)
[2017-01-15] MEDS: Folic Acid 1 MG TABLET PO SCH (08:22)
[2017-01-15] MEDS: Nicotine 21 MG PATCH.TD24 TD SCH (08:27)
[2017-01-15] MEDS ORDERED: levoFLOXacin 750 MG TABLET PO SCH (09:00)
[2017-01-15] MEDS: Insulin DETEMIR 100 UNIT/ML X5UNITS SQ SCH ×2 (11:53→21:16)
--- NOTE | 2017-01-15 18:27 | Internal Med Progress Note ---
Date of Encounter: 01/15/17 Time of Encounter: 11:00 - Assessment and plan (1) Sepsis Current Visit: No Status: Acute Assessment and plan: 01/15/2017: Completed treatment with antibiotics. IV fluids have been discontinued due to CHF. Currently resolved. 01/14/2017: Acute on chronic hypoxic hypercapnic respiratory failure secondary to acute COPD exacerbation due to sepsis from community-acquired pneumonia in combination with volume overload from his multiple bilateral pleural effusions with recent history of interstitial pulmonary edema Hx of DVT and IVC filter placed Increased frequency of Lasix IV to 40 mg IV TID, may use BiPAP, Continue cefepime day 4 Levaquin day [address] ANGIO showed no PE , has tracheomalacia Fever of 100.7 and white blood cell count of 20 desaturated down to 85% on 4 Lt discontinued vancomycin Discontinued IV fluids due to volume overload Chest x-ray showed interstitial pulmonary edema versus pneumonia CT scan report showed dependent atelectasis, but there is a possible right lower lobe infiltrate not reported in the CT, some pulm edema present CTA chest: IMPRESSION: No evidence of pulmonary embolism or acute pulmonary abnormality. Tracheomalacia. Right lower outer breast asymmetry. Physical examination of the right breast for any palpable masses. Qualifiers: Sepsis type: sepsis due to unspecified organism Qualified Code(s): A41.9 - Sepsis, unspecified organism (2) Acute on chronic diastolic CHF (congestive heart failure) Current Visit: Yes Status: Acute Assessment and plan: Currently the patient is on 40 mg of Lasix 3 times a day. I will discreetly states to twice a day 40 mg Lasix. Check daily weights, strict I's and O's. PT OT evaluation. Incentive spirometry. Out of bed, encourage ambulation. 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 Qualifiers: Laterality: unspecified laterality Qualified Code(s): J18.9 - Pneumonia, unspecified organism (7) Morbid obesity with BMI of 45.0-49.9, adult Current Visit: No Status: Chronic Assessment and plan: Outpatient weight loss regimen. - Subjective Interval history: Patient reports improvement in her resting shortness of breath, with no cough or fever, she does get severely out of breath with minimal exertion. - Constitutional Vitals: Temp Pulse Resp BP Pulse Ox 97.9 F 64 18 133/62 91 01/15/17 16:19 01/15/17 16:19 01/15/17 16:19 01/15/17 16:19 01/15/17 16:19 General appearance: Present: A&O X 3, morbidly obese, no acute distress, answers questions appropriately - Respiratory Respiratory exam: Present: wheezes. Absent: accessory muscle use, rales, rhonchi - Cardiovascular Cardiovascular exam: Present: RRR, +S1, +S2. Absent: diastolic murmur, gallop, rubs, systolic murmur - GI/Abdominal GI/Abdominal exam: Present: normal bowel sounds, soft, no peritoneal signs. Absent: distended, tenderness - Extremities Exam Extremities exam: Present: pedal edema, warm, radial pulses palpable and symmetrical. Absent: calf tenderness, cyanotic - Skin Skin exam: Present: dry, intact Internal Medicine: Result - Labs CBC & Chem 7: 01/15/17 03:35 01/15/17 03:35 Labs: Short CBC 01/15/17 Range/Units 03:35 WBC 11.6 H (4.3-11.1) K/mcL Hgb 14.0 (11.5-15.4) g/dL Hct 45.5 H (35.3-44.9) % Plt Count 231 (140-400) K/mcL BMP 01/15/17 03:35 Sodium 141 Potassium 4.2 Chloride 100 Carbon Dioxide 34 H BUN 59 H Creatinine 1.17 H Glucose 327 H Calcium 8.9 - ABG Interpretation ABG results: ABG ABG pH 7.23 pH Units (7.32-7.45) L 01/11/17 15:55 ABG pCO2 83 mmHg (35-45) H* 01/11/17 15:55 ABG pO2 63 mmHg (85-104) L 01/11/17 15:55 ABG O2 Saturation 87 % (95-98) L 01/11/17 15:55 PT/INR, D-dimer PT 11.0 Seconds (9.4-12.1) 01/08/17 21:51 Consult Discharge Plan - Plan Referrals: Dimitris Villaseñor, [employer] [Primary Care Provider] - (Patient will follow up with ECF PCP)
[2017-01-15] MEDS ORDERED: Insulin LISPRO 300 UNITS/3 ML VIAL SQ SCH (21:00)
[2017-01-16] MEDS: Ipratropium/Albuterol Neb 3 ML IH SCH ×2 (03:52→10:13)
[2017-01-16 04:34] LABS: Basophils % 0.3 %; Hematocrit 44.9 % (35.3-44.9); Hemoglobin 14.2 g/dL (11.5-15.4); Immature Granulocytes % 2.2 % (0-4); Mean Corpuscular HGB Conc 31.6 g/dL (31.6-35.5); Mean Corpuscular Hemoglobin 29.5 pg (28.0-33.3); Mean Corpuscular Volume 93.3 fL (83.0-100.0); Mean Platelet Volume 9.9 fL (9.4-12.4); Monocytes # 0.4 K/mcL (0.0-1.3); Monocytes % 4.1 %; Platelet Count 173 K/mcL (140-400); Red Blood Count 4.81 M/mcL (3.82-4.97); Red Cell Distribution Width 14.8 % (11.5-14.5); Segmented Neutrophils % 84.4 %
[2017-01-16 04:45] LABS: BUN/Creatinine Ratio 54 (6-26); Blood Urea Nitrogen 59 mg/dL (7-20); Calcium 8.8 mg/dL (8.6-10.8); Carbon Dioxide 38 mEq/L (19-29); Chloride 98 mEq/L (98-109); Glucose 302 mg/dL (70-99); Osmolality,Calculated 322 (280-300); Potassium 4.6 mEq/L (3.5-4.5); Sodium 142 mEq/L (136-145); eGFR For African Americans > 60 (> 60); eGFR For Non-African Americans 51 (> 60)
[2017-01-16 04:56] LABS: Platelet Estimate Normal (Normal); Reactive Lymphocytes Present (Not Present); Toxic Granulation Present (Not Present)
[2017-01-16] MEDS: *HR* Heparin 5,000 UNIT/ML VIAL SQ SCH (05:36)
[2017-01-16] MEDS: Levothyroxine 25 MCG TABLET PO SCH (05:36)
[2017-01-16 06:52] VITALS: BP 146/76
[2017-01-16] MEDS ORDERED: Furosemide 40 MG/4 ML VIAL IVP SCH (08:00)
[2017-01-16] MEDS: *HR* OxyCODONE Immed Rel 5 MG TABLET PO PRN (08:47)
[2017-01-16] MEDS: MethylPREDNISolone 40 MG/ML VIAL IVP SCH (08:47)
[2017-01-16] MEDS: FLUoxetine 20 MG CAPSULE PO SCH (08:48)
[2017-01-16] MEDS: Folic Acid 1 MG TABLET PO SCH (08:48)
[2017-01-16] MEDS: Aspirin Enteric Coated 325 MG Tablet PO SCH (08:48)
[2017-01-16] MEDS: Insulin LISPRO 300 UNITS/3 ML VIAL SQ SCH ×4 (08:49→11:52)
[2017-01-16] MEDS: Insulin DETEMIR 100 UNIT/ML X5UNITS SQ SCH (08:49)
[2017-01-16] MEDS: Gabapentin 300 MG CAPSULE PO SCH (08:49)
[2017-01-16] MEDS: Nicotine 21 MG PATCH.TD24 TD SCH (08:50)
--- NOTE | 2017-01-16 10:31 | Discharge Summary ---
Date of Encounter: 01/16/17 Time of Encounter: 10:25 - Discharge Diagnosis (1) Sepsis Priority: Secondary Status: Acute Qualifiers: Sepsis type: sepsis due to unspecified organism Qualified Code(s): A41.9 - Sepsis, unspecified organism (2) Acute on chronic diastolic CHF (congestive heart failure) Priority: Secondary Status: Acute (3) Diabetes mellitus Priority: Secondary Status: Chronic Qualifiers: Diabetes mellitus type: type 2 Diabetes mellitus complication status: with hyperglycemia Diabetes mellitus residential insulin use: with residential use Qualified Code(s): E11.65 - Type 2 diabetes mellitus with hyperglycemia; Z79.4 - shelter (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 of 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 (4) Hypertension Priority: Secondary Status: Chronic Qualifiers: Hypertension type: essential hypertension Qualified Code(s): I10 - Essential (primary) hypertension (5) Tobacco use Priority: Secondary Status: Resolved (6) Community acquired pneumonia Priority: Primary Status: Acute Qualifiers: Laterality: unspecified laterality Qualified Code(s): J18.9 - Pneumonia, unspecified organism (7) Morbid obesity with BMI of 45.0-49.9, adult Priority: Secondary Status: Chronic - Discharge Medications Prescriptions: OxyCODONE Immed Rel [Roxicodone 5 MG] 5 mg PO Q6HR PRN #14 tab PRN Reason: Pain diazePAM [Valium] 5 mg PO TID PRN #20 PRN Reason: Anxiety Furosemide [Lasix] 40 mg PO BID #14 tab predniSONE [PredniSONE] 10 mg PO DAILY #30 tablet Home Medications: Atenolol [Tenormin] 25 mg PO DAILY 05/23/15 [History] Folic Acid 1 mg PO DAILY 05/23/15 [History] Levothyroxine [Synthroid] 25 mcg PO DAILY 05/23/15 [History] Losartan [Cozaar] 25 mg PO DAILY 05/23/15 [History] metFORMIN [Glucophage] 1,000 mg PO BID 05/23/15 [History] Gabapentin [Neurontin] 300 mg PO TID 10/25/15 [History] Montelukast [Singulair] 10 mg PO DAILY 10/25/15 [History] Oxygen 2.5 l .ROUTE AD 10/25/15 [History] hydrOXYzine HCl [Hydroxyzine HCl] 25 mg PO TID PRN 10/25/15 [History] FLUoxetine HCl [Fluoxetine HCl] 40 mg PO DAILY 05/21/16 [History] Insulin ASPART [NovoLOG] 15 - 30 unit SQ TIDWM 06/14/16 [History] Aspirin [Ecotrin] 325 mg PO DAILY 06/15/16 [History] Ipratropium/Albuterol Neb [Duoneb] 3 ml IH Q6HR 06/15/16 [History] Insulin Glargine,Hum.rec.anlog [Lantus Solostar] 40 unit SQ HS #1 06/17/16 [Rx] Famotidine [Pepcid] 40 mg PO DAILY 01/09/17 [History] Fluticasone Propionate Nasal [Flonase] 2 spr NS DAILY 01/09/17 [History] Pravastatin Sodium [Pravachol] 20 mg PO QPM 01/09/17 [History] Spironolactone [Aldactone] 25 mg PO BID 01/09/17 [History] Albuterol Neb [Proventil Neb] 2.5 mg IH [id number] PRN inh 01/16/17 [Rx] Furosemide [Lasix] 40 mg PO BID #14 tab 01/16/17 [Rx] Heparin 5,000 unit SQ Q12HR vial 01/16/17 [Rx] Insulin LISPRO [HumaLOG] 0 units SQ HS vial 01/16/17 [Rx] Insulin LISPRO [HumaLOG] 0 units SQ TIDAC vial 01/16/17 [Rx] OxyCODONE Immed Rel [Roxicodone 5 MG] 5 mg PO Q6HR PRN #14 tab 01/16/17 [Rx] diazePAM [Valium] 5 mg PO TID PRN #20 01/16/17 [Rx] predniSONE [PredniSONE] 10 mg PO DAILY #30 tablet 01/16/17 [Rx] Allergies/Adverse Reactions: 3 Allergy/AdvReac Type Severity Reaction Status Date / Time acetaminophen [From Tylenol] Allergy Hives Verified 06/15/16 07:25 ibuprofen AdvReac Nausea Verified 06/14/16 20:30 Procedures/tests Complete & Pending: Procedures Performed prior 72 hours Category Date Time Status CT angio chest [CT] Stat Cat Scan 01/13/17 11:22 Completed Date of admission: 01/09/17 01:36 Primary care physician: Dimitris Villaseñor CNP Consults: 01/09/17 01:54 Consult to Occupational Therapy [CONS] Routine Comment: Evaluate, develop and implement POC Reason for Consult: Fall Consult to Physical Therapy [CONS] Routine Comment: Evaluate, develop and implement POC Reason for Consult: Fall 01/09/17 14:20 Consult to Business Strategist [CONS] Routine Reason for SW Consult: rehab placement - Patient Status Disposition: Transfer SNF Condition: Fair Functional capacity at discharge: wheelchair bound Overall status at discharge: patient is not back to baseline - Discharge Instructions Instructions: Heart Failure (DC), Chronic Obstructive Pulmonary Disease (DC) Follow Up With: Dimitris Villaseñor CNP [Primary Care Provider] - (Patient will follow up with [facility] PCP) - Diet and Activity Activity: as per physical therapy, increase activity as tolerated Diet: diabetic diet, low fat, low cholesterol, low salt diet Hospital course: Ms. Yang is a 61 year old female with past medical history significant for CVA with right-sided deficit, hypertension and diabetes who presented to the hospitals with altered mental status and status post fall. She also reported fevers chills cough and green sputum. Chest x-ray should check suggested presence of an infiltrate. She was admitted to the hospital with a diagnosis of healthcare associated pneumonia and treated with broad-spectrum IV antibiotics. She had a long hospital course and had CHF exacerbation with fluid overload which was treated with Lasix. Patient completed antibiotics and currently is euvolemic, feels back to baseline and will be discharged to subacute rehabilitation. Time spent discussing smoking cessation with patient: 3 to 10 minutes - Time Spent with Patient Total time spent providing and/or coordinating discharge services: Greater than 30 minutes - Constitutional Vitals: Temp Pulse Resp BP Pulse Ox 97.6 F 54 18 146/76 90 01/16/17 06:50 01/16/17 06:50 01/16/17 06:50 01/16/17 06:50 01/16/17 06:50 General appearance: Present: A&O X 3, morbidly obese, no acute distress, answers questions appropriately
--- NOTE | 2017-01-16 10:35 | Physician Discharge Referral ---
ExtendedCare Referral Info Transfer To: ECF Provider in Charge after Transfer: PCP Institutional Level of Care: Skilled - Diagnosis (1) Sepsis Status: Acute (2) Acute on chronic diastolic CHF (congestive heart failure) Status: Acute (3) Diabetes mellitus Status: Chronic (4) Hypertension Status: Chronic (5) Tobacco use Status: Resolved (6) Community acquired pneumonia Status: Acute (7) Morbid obesity with BMI of 45.0-49.9, adult Status: Chronic - Transfer Medications Prescriptions: OxyCODONE Immed Rel [Roxicodone 5 MG] 5 mg PO Q6HR PRN #14 tab PRN Reason: Pain diazePAM [Valium] 5 mg PO TID PRN #20 PRN Reason: Anxiety Furosemide [Lasix] 40 mg PO BID #14 tab predniSONE [PredniSONE] 10 mg PO DAILY #30 tablet Home Medications: Atenolol [Tenormin] 25 mg PO DAILY 05/23/15 [History] Folic Acid 1 mg PO DAILY 05/23/15 [History] Levothyroxine [Synthroid] 25 mcg PO DAILY 05/23/15 [History] Losartan [Cozaar] 25 mg PO DAILY 05/23/15 [History] metFORMIN [Glucophage] 1,000 mg PO BID 05/23/15 [History] Gabapentin [Neurontin] 300 mg PO TID 10/25/15 [History] Montelukast [Singulair] 10 mg PO DAILY 10/25/15 [History] Oxygen 2.5 l .ROUTE AD 10/25/15 [History] hydrOXYzine HCl [Hydroxyzine HCl] 25 mg PO TID PRN 10/25/15 [History] FLUoxetine HCl [Fluoxetine HCl] 40 mg PO DAILY 05/21/16 [History] Insulin ASPART [NovoLOG] 15 - 30 unit SQ TIDWM 06/14/16 [History] Aspirin [Ecotrin] 325 mg PO DAILY 06/15/16 [History] Ipratropium/Albuterol Neb [Duoneb] 3 ml IH Q6HR 06/15/16 [History] Insulin Glargine,Hum.rec.anlog [Lantus Solostar] 40 unit SQ HS #1 06/17/16 [Rx] Famotidine [Pepcid] 40 mg PO DAILY 01/09/17 [History] Fluticasone Propionate Nasal [Flonase] 2 spr NS DAILY 01/09/17 [History] Pravastatin Sodium [Pravachol] 20 mg PO QPM 01/09/17 [History] Spironolactone [Aldactone] 25 mg PO BID 01/09/17 [History] Albuterol Neb [Proventil Neb] 2.5 mg IH [id number] PRN inh 01/16/17 [Rx] Furosemide [Lasix] 40 mg PO BID #14 tab 01/16/17 [Rx] Heparin 5,000 unit SQ Q12HR vial 01/16/17 [Rx] Insulin LISPRO [HumaLOG] 0 units SQ HS vial 01/16/17 [Rx] Insulin LISPRO [HumaLOG] 0 units SQ TIDAC vial 01/16/17 [Rx] OxyCODONE Immed Rel [Roxicodone 5 MG] 5 mg PO Q6HR PRN #14 tab 01/16/17 [Rx] diazePAM [Valium] 5 mg PO TID PRN #20 01/16/17 [Rx] predniSONE [PredniSONE] 10 mg PO DAILY #30 tablet 01/16/17 [Rx] Allergies/Adverse Reactions: 3 Allergy/AdvReac Type Severity Reaction Status Date / Time acetaminophen [From Tylenol] Allergy Hives Verified 06/15/16 07:25 ibuprofen AdvReac Nausea Verified 06/14/16 20:30 - Respiratory Orders Oxygen / L per min, Other (BiPAP QHS settings per inpatient respiratory therapy) Smoking Cessation: Smoking cessation has been advised. For more information, call the [place] Tobacco Quit Line at 4-031-NEGY-NOW. - Lab Orders Lab Orders: Other (include drug levels w/frequency) (BMP in 3-7 days to check kidney function) - Advance Directives Living Will: Yes Power of Electronic Engineering Draftsperson: Yes Code Status: DNR-Arrest/Don't Intubate - Mobility Orders Chair - Rehabiliation Orders Rehab Potential: Good Rehab Orders: ROM Exercises, Evaluation for Physical Therapy, Evaluation for Occupational Therapy - Treatments Skin tear care topically daily PRN per policy, Fleet enema rectally every other day PRN cleansing purposes - Diet Orders No Added Salt (TAWANNA), No Concentrated Sweets, Cardiac CERTIFICATION: I certify that the transfer of the above named patient to an Extended Care Facility is necessary for the continuing treatment of the diagnosis listed. The above information is true and accurate reflection of patient's current condition. Confidential - Redisclosure prohibited without a patient's written consent.
== END 2017-01-16 12:32 | DRG 871 ==
LOC: EMEROO 21:01 → 2NNU 21:01 → SUATTDRO 01-09 01:36 → 2ANU 01-10 17:57
PROVIDERS: ADMIT Internal Medicine; ATTEND Internal Medicine

== ENCOUNTER 2017-03-17 18:43 | Inpatient (IN) ==
[2017-03-18] MEDS ORDERED: Ondansetron 4 MG/2 ML VIAL IVP PRN (01:20)
[2017-03-18] MEDS ORDERED: *HR* Dextrose 50 % in Water (Syg) 50 ML SYRINGE IVP PRN (01:20)
[2017-03-18] MEDS ORDERED: 0.9 % Sodium Chloride 1,000 ML IVC ONE (01:20)
[2017-03-18] MEDS ORDERED: Albuterol 2.5 MG/3 ML NEBULIZER IH PRN (01:20)
[2017-03-18] MEDS ORDERED: Dextrose Gel 15 GM PO PRN ×2 (01:20)
[2017-03-18] MEDS ORDERED: D5% in Water 1,000 ML IVC PRN (01:20)
[2017-03-18] MEDS ORDERED: Naloxone 0.4 MG/ML INJ IVP PRN (01:20)
--- NOTE | 2017-03-18 01:55 | Internal Med History&Physical ---
Date of Encounter: 03/18/17 Time of Encounter: 01:00 Assessment and Plan (1) Sepsis Current visit: Yes Status: Acute 1. Patient remains hemodynamically stable and has normal initial lactate. Source is likely pneumonia. 2. Will order STAT blood cultures, repeat lactate, IVF fluid bolus, MIV, and antibiotics to cover HCAP. 3. Will hold off Vancomycin for now given her GUERRERO and hemodynamic stability. Should she show any sign of decompensation, will add Vancomycin. 4. Follow cultures and clinical exams. Qualifiers: Sepsis type: sepsis due to unspecified organism Qualified Code(s): A41.9 - Sepsis, unspecified organism (2) Pneumonia Current visit: Yes Status: Acute 1. Blood and sputum cultures to be collected. 2. Oxygen and aerosols as needed for support. 3. Will add steroids for COPD. 4. Zosyn and Levaquin ordered. 5. Hold off on Vancomycin given her GUERRERO. If her condition worsens and/or she fails to improve, will add Vancomycin. Qualifiers: Pneumonia type: due to unspecified organism Laterality: left Lung location: lower lobe of lung Qualified Code(s): J18.1 - Lobar pneumonia, unspecified organism (3) Acute kidney injury Current visit: Yes Status: Acute 1. Stop diuretics. 2. IVF bolus followed by MIV. 3. Follow renal function and consult nephrology if fails to improve or worsens. (4) DM (diabetes mellitus) Current visit: Yes Status: Acute 1. Hold home oral meds. 2. Will place on SSI for now and then basal insulin once home meds are verified. 3. Monitor and adjust dose as necessary. 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 Heparin SQ. Internal Medicine - H&P: HPI Chief complaint: cough; SOB; transfer from [facility] Admitted From: Hospital to Hospital Transfer Plans for Post Hospital Care: Home History of present illness: Ms. Yang is a 61 year old female who presented in transfer from [facility] ER. She presented there with complaints of cough, shortness of breath, decreased by mouth intake, and vague abdominal pain. She was found to have evidence of pneumonia, acute kidney injury, and dehydration. She was given some antibiotics and transferred to [facility] for ongoing care and treatment. Upon arrival, I saw patient at bedside. She was resting and in no apparent distress. She did have some mild cough and shortness of breath, but she felt comfortable on nasal cannula oxygen. She has been hospitalized in last 2 months and just discharged from rehabilitation a week ago. During the last hospitalization, she was hospitalized for pneumonia and sepsis. She now presents with pneumonia again and also has acute kidney injury. She appears dehydrated but in no hemodynamic distress. She admits to having had some nausea and vomiting but no diarrhea. Appetite has been diminished. She denies any chest pain. She has been coughing and wheezing significantly. Despite her pneumonia and COPD, she is a chronic smoker and has no interest in quitting smoking. Past Med Surg Social Fam HX - Past Medical History Attestation: Yes The following information was validated with the patient. Source: patient, old records reviewed Medical history: arthritis, asthma, COPD, coronary artery disease, CVA, diabetes , GERD, hyperlipidemia, hypertension, thyroid disease, TIA Psychiatric history: anxiety, depression - Past Surgical History Surgical History: breast surgery, orthopedic, other, other - Social History Smoking Status: Current every day smoker Smokeless Tobacco Status: No (1 PPD) Alcohol use: none Drug use: none Current living situation: Home, With Family Activity Level: Bed bound Recent Out of Country Travel Within the Last 8 Weeks: No - Family History Mother Living Status: Hx Family Cardiac Disorders: Yes Hx Family Respiratory Disorders: Yes (emphysema) Hx Family Cancer: Yes (uterine cancer) Father Living Status: Hx Family Cardiac Disorders: Yes Internal Medicine - H&P: Meds Atenolol [Tenormin] 25 mg PO DAILY 05/23/15 [History] Folic Acid 1 mg PO DAILY 05/23/15 [History] Levothyroxine [Synthroid] 25 mcg PO DAILY 05/23/15 [History] Losartan [Cozaar] 25 mg PO DAILY 05/23/15 [History] metFORMIN [Glucophage] 1,000 mg PO BID 05/23/15 [History] Gabapentin [Neurontin] 300 mg PO TID 10/25/15 [History] Montelukast [Singulair] 10 mg PO DAILY 10/25/15 [History] Oxygen 2.5 l .ROUTE AD 10/25/15 [History] hydrOXYzine HCl [Hydroxyzine HCl] 25 mg PO TID PRN 10/25/15 [History] FLUoxetine HCl [Fluoxetine HCl] 40 mg PO DAILY 05/21/16 [History] Insulin ASPART [NovoLOG] 15 - 30 unit SQ TIDWM 06/14/16 [History] Aspirin [Ecotrin] 325 mg PO DAILY 06/15/16 [History] Ipratropium/Albuterol Neb [Duoneb] 3 ml IH Q6HR 06/15/16 [History] Insulin Glargine,Hum.rec.anlog [Lantus Solostar] 40 unit SQ HS #1 06/17/16 [Rx] Famotidine [Pepcid] 40 mg PO DAILY 01/09/17 [History] Fluticasone Propionate Nasal [Flonase] 2 spr NS DAILY 01/09/17 [History] Pravastatin Sodium [Pravachol] 20 mg PO QPM 01/09/17 [History] Spironolactone [Aldactone] 25 mg PO BID 01/09/17 [History] Albuterol Neb [Proventil Neb] 2.5 mg IH [id number] PRN inh 01/16/17 [Rx] Furosemide [Lasix] 40 mg PO BID #14 tab 01/16/17 [Rx] Insulin LISPRO [HumaLOG] 0 units SQ HS vial 01/16/17 [Rx] Insulin LISPRO [HumaLOG] 0 units SQ TIDAC vial 01/16/17 [Rx] OxyCODONE Immed Rel [Roxicodone 5 MG] 5 mg PO Q6HR PRN #14 tab 01/16/17 [Rx] diazePAM [Valium] 5 mg PO TID PRN #20 01/16/17 [Rx] predniSONE [PredniSONE] 10 mg PO DAILY #30 tablet 01/16/17 [Rx] 3 Allergy/AdvReac Type Severity Reaction Status Date / Time acetaminophen [From Tylenol] Allergy Hives Verified 06/15/16 07:25 ibuprofen AdvReac Nausea Verified 06/14/16 20:30 - Constitutional Constitutional: chills, fever(s), no night sweats - EENT Eyes: no blurry vision, no change in vision Ears: no ear pain, no tinnitus Nose, mouth and throat: nasal congestion, no sinus pressure, no sore throat - Cardiovascular Cardiovascular ROS IM: dyspnea, no chest pain, no orthopnea, no palpitations, no paroxysmal nocturnal dyspnea - Respiratory Respiratory: cough, dyspnea, wheezing, chest congestion, excessive phlegm production, change in phlegm color, no hemoptysis - Gastrointestinal Gastrointestinal: abdominal pain, constipation, no diarrhea, no hematemesis, no hematochezia, no melena, no nausea, no vomiting - Genitourinary Genitourinary: no dysuria, no flank pain, no hematuria - Musculoskeletal Musculoskeletal ROS IM: no arthralgias, no back pain - Integumentary Integumentary IM: no rash, no jaundice - Neurological Neurological ROS: focal weakness (right sided wekaness -- old/chronic), no convulsions, no headache(s), no numbness - Psychiatric Psychiatric: no anxiety, no depression - Endocrine Endocrine IM: no polydipsia, no polyuria - Hematologic/Lymphatic Hematologic/Lymphatic: no easy bruising, no lymphadenopathy - Allergic/Immunologic Allergic/Immunologic: wheezing, no GI upset with certain foods - Constitutional Vitals: Temp Pulse Resp BP Pulse Ox 97.7 F 87 17 140/83 92 03/17/17 23:45 03/17/17 23:45 03/17/17 23:45 03/17/17 23:45 03/17/17 23:45 General appearance: Present: cooperative, disheveled, A&O X 3, pleasant, answers questions appropriately Exam: looks dehydrated - Head Head exam: Present: atraumatic, normal inspection - Expanded Head Exam Head exam expanded: Absent: abrasion, contusion, general tenderness - Eye Eye exam: Present: EOMI, normal appearance, PERRL. Absent: scleral icterus Pupils: Present: normal accommodation - ENT ENT exam: Present: mucous membranes dry, normal exam - Neck Neck exam general surgery: Present: full ROM, supple. Absent: lymphadenopathy, tenderness, nuchal rigidity - Expanded Neck Exam Neck exam: Absent: carotid bruit - Respiratory Respiratory exam: Present: prolonged expiratory phase, rales (left base), rhonchi, wheezes. Absent: accessory muscle use, chest wall tenderness, respiratory distress - Cardiovascular Cardiovascular exam: Present: distant heart sounds, RRR, +S1, +S2. Absent: diastolic murmur, JVD, systolic murmur - GI/Abdominal GI/Abdominal exam: Present: normal bowel sounds, soft. Absent: hepatomegaly, rebound, splenomegaly, tenderness - Extremities Exam Extremities exam: Present: full ROM, normal capillary refill, warm. Absent: calf tenderness, joint swelling, tenderness - Back Exam Back exam: Absent: CVA tenderness (L), CVA tenderness (R) - Neurological Exam Neurological exam: Present: alert, CN II-XII intact, oriented X3, no focal deficits (right sided weakness compared to left -- old; speech is rough but intelligble (chronic per patient)) - Psychiatric Psychiatric exam: Present: normal affect, normal mood - Skin Skin exam: Present: dry, warm. Absent: rash Internal Med - H&P Results - Labs Labs: I reviewed her labs from [place] include the following: WBC 14.9 Hemoglobin 14.2 Hematocrit 42.6 Platelet 300 70% segmented neutrophils 10% lymphocytes Sodium 136 Potassium 5.2 Chloride 90 Carbon dioxide 29 BUN 50 Creatinine 2.53 Glucose 283 Lactic acid 1.[address] results reviewed: Negative findings except for left basilar infiltrate. - EKG Data -: EKG Interpreted by Myself EKG shows normal: sinus rhythm - EKG Data Prior EKG available for review: no EKG comments: 03/18/17 02:21 Sinus rhythm; no acute findings
[2017-03-18 02:03] LABS: Basophils % 0.3 %; Eosinophils # 0.4 K/mcL (0.0-0.6); Eosinophils % 3.4 %; Hematocrit 39.8 % (35.3-44.9); Hemoglobin 12.7 g/dL (11.5-15.4); Immature Granulocytes % 0.4 % (0-4); Lymphocytes # 1.2 K/mcL (0.6-4.6); Lymphocytes % 10.5 %; Mean Corpuscular HGB Conc 31.9 g/dL (31.6-35.5); Mean Corpuscular Hemoglobin 29.8 pg (28.0-33.3); Mean Corpuscular Volume 93.4 fL (83.0-100.0); Mean Platelet Volume 9.1 fL (9.4-12.4); Monocytes # 0.8 K/mcL (0.0-1.3); Neutrophils # 9.2 K/mcL (1.6-8.9); Platelet Count 262 K/mcL (140-400); Red Blood Count 4.26 M/mcL (3.82-4.97); Red Cell Distribution Width 14.6 % (11.5-14.5); Segmented Neutrophils % 78.4 %
[2017-03-18 02:12] LABS: INR 1.1; Prothrombin Time 11.8 Seconds (9.4-12.1)
[2017-03-18 02:14] LABS: Activated Partial Thrombo Time 28.7 Seconds (26.0-36.0)
[2017-03-18 02:19] LABS: Albumin 2.9 g/dL (3.5-5.0); Albumin/Globulin Ratio 0.7 (1.1-2.2); Bilirubin,Total 0.4 mg/dL (0.2-1.2); Calcium 9.7 mg/dL (8.6-10.8); Globulin 4.2 g/dL (2.4-3.5); Magnesium 1.4 mg/dL (1.6-2.6); Potassium 4.2 mEq/L (3.5-4.5); Total Protein 7.1 g/dL (6.0-8.3)
[2017-03-18 02:22] LABS: Hemoglobin A1C 9.7 %
[2017-03-18] MEDS: Piperacillin/Tazobactam 3.375 GM in D5% in Water 50 ML IVPB SCH ×3 (02:50→17:10)
[2017-03-18] MEDS: Ipratropium/Albuterol Neb 3 ML IH SCH ×4 (03:57→21:09)
[2017-03-18] MEDS: *HR* Heparin 5,000 UNIT/ML VIAL SQ SCH ×3 (04:31→21:44)
[2017-03-18] MEDS: 0.9 % Sodium Chloride 1,000 ML IVC SCH (04:31)
[2017-03-18] MEDS ORDERED: methylPREDNISolone 125 MG/2 ML VIAL IVP SCH (08:00)
[2017-03-18] MEDS: Insulin LISPRO 300 UNITS/3 ML VIAL SQ SCH ×4 (08:23→21:44)
[2017-03-18] MEDS ORDERED: Levofloxacin 750 MG/150 ML 750 MG/150 ML BAG IVPB SCH (09:00)
[2017-03-18] MEDS ORDERED: hydrOXYzine pamoate 25 MG CAPSULE PO PRN (14:38)
--- NOTE | 2017-03-18 14:47 | Event Note ---
Date of Encounter: 03/18/17 Time of Encounter: 14:15 61 year old female with h/o- DM, morbid obesity, COPD, CHF, breast cancer, medical noncompliance, has been admitted with worsening shortness of breath. Patient was noted to have sepsis with pneumonia and acute exacerbation of COPD. Patient seen and examined at bedside. Reports feeling well and requests to be discharged home today. Chest-S1, S2 heard. Lungs with bilateral decreased air entry. No active wheezing. Acute exacerbation of COPD-continue empiric IV antibiotics. Taper down IV steroids as tolerated. Continue scheduled bronchodilators and supplemental oxygen. Possible left basal pneumonia-CT chest/abdomen shows left posterior basal opacity-atelectasis versus pneumonia. Continue IV Levaquin and Zosyn as patient was recently discharged home from a retirement. Continue bronchodilators, supplemental oxygen as above. Diabetes mellitus type 2-noted to have steroid-induced hyperglycemia. Start basal bolus insulin regimen, continue Accu-Chek blood glucose monitoring. Diabetic diet. Acute on chronic renal failure-likely related to underlying infection. Hold IV hydration and continue to monitor serum creatinine, currently improving.
[2017-03-18] MEDS: MethylPREDNISolone 40 MG/ML VIAL IVP SCH (16:07)
[2017-03-18] MEDS: Gabapentin 300 MG CAPSULE PO SCH ×2 (16:07→21:43)
[2017-03-18] MEDS: *HR* OxyCODONE Immed Rel 5 MG TABLET PO PRN (17:10)
[2017-03-18] MEDS ORDERED: Melatonin 3 MG TABLET PO PRN (20:21)
[2017-03-18] MEDS ORDERED: Insulin DETEMIR 100 UNIT/ML X5UNITS SQ SCH (21:00)
[2017-03-18] MEDS: Insulin DETEMIR 100 UNIT/ML X5UNITS SQ SCH (21:43)
[2017-03-19] MEDS: MethylPREDNISolone 40 MG/ML VIAL IVP SCH ×2 (01:35→08:38)
[2017-03-19] MEDS: Piperacillin/Tazobactam 3.375 GM in D5% in Water 50 ML IVPB SCH ×3 (02:22→16:45)
[2017-03-19] MEDS: Ipratropium/Albuterol Neb 3 ML IH SCH ×4 (04:08→21:06)
[2017-03-19] MEDS: *HR* OxyCODONE Immed Rel 5 MG TABLET PO PRN (04:23)
[2017-03-19 06:08] LABS: Basophils % 0.1 %; Eosinophils % 0.1 %; Hematocrit 38.3 % (35.3-44.9); Hemoglobin 12.6 g/dL (11.5-15.4); Immature Granulocytes % 1.4 % (0-4); Lymphocytes # 0.7 K/mcL (0.6-4.6); Lymphocytes % 4.5 %; Mean Corpuscular HGB Conc 32.9 g/dL (31.6-35.5); Mean Corpuscular Hemoglobin 30.4 pg (28.0-33.3); Mean Corpuscular Volume 92.3 fL (83.0-100.0); Monocytes # 0.3 K/mcL (0.0-1.3); Monocytes % 1.9 %; Platelet Count 287 K/mcL (140-400); Red Blood Count 4.15 M/mcL (3.82-4.97)
[2017-03-19 06:11] LABS: Neutrophils # 13.3 K/mcL (1.6-8.9)
[2017-03-19 06:20] LABS: Calcium 9.5 mg/dL (8.6-10.8); Magnesium 1.9 mg/dL (1.6-2.6); Potassium 4.9 mEq/L (3.5-4.5)
[2017-03-19] MEDS: Levothyroxine 25 MCG TABLET PO SCH (06:56)
[2017-03-19] MEDS: *HR* Heparin 5,000 UNIT/ML VIAL SQ SCH ×3 (06:56→20:58)
[2017-03-19] MEDS: Anastrozole 1 MG TABLET PO SCH (08:38)
[2017-03-19] MEDS: FLUoxetine 20 MG CAPSULE PO SCH (08:38)
[2017-03-19] MEDS: Aspirin Enteric Coated 325 MG Tablet PO SCH (08:38)
[2017-03-19] MEDS: Folic Acid 1 MG TABLET PO SCH (08:38)
[2017-03-19] MEDS: Gabapentin 300 MG CAPSULE PO SCH ×3 (08:38→20:53)
[2017-03-19] MEDS: Insulin LISPRO 300 UNITS/3 ML VIAL SQ SCH ×6 (08:39→20:53)
[2017-03-19] MEDS: Insulin DETEMIR 100 UNIT/ML X5UNITS SQ SCH (10:02)
[2017-03-19] MEDS: Fluticasone Propionate Nasal 50 MCG/SPRAY BOTTLE NS SCH (10:02)
[2017-03-19] MEDS ORDERED: Insulin DETEMIR 100 UNIT/ML X5UNITS SQ ONE (11:27)
[2017-03-19] MEDS: Nicotine 21 MG PATCH.TD24 TD SCH (12:19)
[2017-03-19] MEDS: 0.9 % Sodium Chloride 1,000 ML IVC SCH (20:05)
[2017-03-19] MEDS ORDERED: Insulin DETEMIR 100 UNIT/ML X5UNITS SQ SCH (21:00)
--- NOTE | 2017-03-19 21:49 | Internal Med Progress Note ---
Date of Encounter: 03/19/17 Time of Encounter: 16:26 - Assessment and plan (1) Sepsis Current Visit: No Status: Resolved Assessment and plan: Resolved. Currently afebril Elevated WBCs but is currently on Solumedrol. Blood cultures 03/18 no growth to date. Continue Levaquin/Zosyn. Qualifiers: Sepsis type: sepsis due to unspecified organism Qualified Code(s): A41.9 - Sepsis, unspecified organism (2) Acute kidney injury Current Visit: No Status: Acute Assessment and plan: Showed slight improvement today. Continue to renally dose medications. (3) DM (diabetes mellitus) Current Visit: Yes Status: Acute Assessment and plan: Currently hyperglycemic. Will adjust basal insulin and add meal time as well. Continue diabetic diet. 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 (4) Pneumonia Current Visit: No Status: Acute Assessment and plan: Continue Zosyn and Levaquin Qualifiers: Pneumonia type: due to unspecified organism Laterality: left Lung location: lower lobe of lung Qualified Code(s): J18.1 - Lobar pneumonia, unspecified organism (5) Difficulty sleeping Current Visit: Yes Status: Acute Assessment and plan: Melatonin HS - Constitutional Vitals: Temp Pulse Resp BP Pulse Ox 97.5 F L 74 18 117/69 88 03/19/17 18:53 03/19/17 18:53 03/19/17 21:08 03/19/17 18:53 03/19/17 21:08 General appearance: Present: cooperative, disheveled, A&O X 3, pleasant, answers questions appropriately Internal Medicine: Result - Labs CBC & Chem 7: 03/19/17 05:43 03/19/17 05:43 Labs: Short CBC 03/19/17 Range/Units 05:43 WBC 14.4 H (4.3-11.1) K/mcL Hgb 12.6 (11.5-15.4) g/dL Hct 38.3 (35.3-44.9) % Plt Count 287 (140-400) K/mcL Neutrophils # 13.3 H (1.6-8.9) K/mcL BMP 03/19/17 05:43 Sodium 135 L Potassium 4.9 H Chloride 98 Carbon Dioxide 27 BUN 42 H Creatinine 1.63 H Glucose 417 H Calcium 9.5 - ABG Interpretation ABG results: PT/INR, D-dimer PT 11.8 Seconds (9.4-12.1) 03/18/17 01:55 Consult Discharge Plan - Plan Referrals: Dimitris Villaseñor, JARRETT [Primary Care Provider] -
[2017-03-20] MEDS: Piperacillin/Tazobactam 3.375 GM in D5% in Water 50 ML IVPB SCH ×3 (03:23→17:32)
[2017-03-20] MEDS: Ipratropium/Albuterol Neb 3 ML IH SCH ×3 (04:04→16:10)
[2017-03-20 05:44] LABS: Basophils % 0.1 %; Hematocrit 37.5 % (35.3-44.9); Immature Granulocytes % 1.1 % (0-4); Lymphocytes % 6.4 %; Mean Corpuscular Hemoglobin 30.1 pg (28.0-33.3); Mean Platelet Volume 9.5 fL (9.4-12.4); Monocytes # 0.8 K/mcL (0.0-1.3); Neutrophils # 13.2 K/mcL (1.6-8.9); Platelet Count 294 K/mcL (140-400); Red Blood Count 3.99 M/mcL (3.82-4.97); Red Cell Distribution Width 14.2 % (11.5-14.5); Segmented Neutrophils % 87.4 %
[2017-03-20] MEDS: *HR* Heparin 5,000 UNIT/ML VIAL SQ SCH ×2 (06:03→14:17)
[2017-03-20] MEDS: Levothyroxine 25 MCG TABLET PO SCH (06:03)
[2017-03-20 06:08] LABS: Calcium 9.4 mg/dL (8.6-10.8); Potassium 4.3 mEq/L (3.5-4.5)
[2017-03-20] MEDS: Anastrozole 1 MG TABLET PO SCH (08:17)
[2017-03-20] MEDS: Folic Acid 1 MG TABLET PO SCH (08:18)
[2017-03-20] MEDS: FLUoxetine 20 MG CAPSULE PO SCH (08:18)
[2017-03-20] MEDS: Gabapentin 300 MG CAPSULE PO SCH ×2 (08:18→14:17)
[2017-03-20] MEDS: Fluticasone Propionate Nasal 50 MCG/SPRAY BOTTLE NS SCH (08:19)
[2017-03-20] MEDS: Aspirin Enteric Coated 325 MG Tablet PO SCH (08:19)
[2017-03-20] MEDS: Nicotine 21 MG PATCH.TD24 TD SCH (08:20)
[2017-03-20] MEDS: Insulin LISPRO 300 UNITS/3 ML VIAL SQ SCH ×6 (08:21→17:32)
[2017-03-20] MEDS ORDERED: Insulin DETEMIR 100 UNIT/ML X5UNITS SQ ONE (08:48)
[2017-03-20] MEDS ORDERED: Levofloxacin 750 MG/150 ML 750 MG/150 ML BAG IVPB SCH (09:00)
[2017-03-20] MEDS ORDERED: predniSONE 20 MG TABLET PO SCH (09:00)
[2017-03-20] MEDS ORDERED: diazePAM 5 MG TABLET PO PRN (09:41)
[2017-03-20 11:34] VITALS: BP 103/66
--- NOTE | 2017-03-20 17:51 | Discharge Summary ---
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 (4) Pneumonia Priority: Secondary Status: Acute Qualifiers: Pneumonia type: due to unspecified organism Laterality: left Lung location: lower lobe of lung Qualified Code(s): J18.1 - Lobar pneumonia, unspecified organism (5) Difficulty sleeping Priority: Secondary Status: Acute - Discharge Medications Prescriptions: Furosemide [Lasix] 20 mg PO BID #28 tab predniSONE [PredniSONE] 40 mg PO DAILY #6 tablet Home Medications: Folic Acid 1 mg PO DAILY 05/23/15 [History] Levothyroxine [Synthroid] 25 mcg PO DAILY 05/23/15 [History] Losartan [Cozaar] 25 mg PO DAILY 05/23/15 [History] metFORMIN [Glucophage] 1,000 mg PO BID 05/23/15 [History] Gabapentin [Neurontin] 300 mg PO TID 10/25/15 [History] Montelukast [Singulair] 10 mg PO DAILY 10/25/15 [History] Oxygen 2.5 l .ROUTE AD 10/25/15 [History] hydrOXYzine HCl [Hydroxyzine HCl] 25 mg PO TID PRN 10/25/15 [History] FLUoxetine HCl [Fluoxetine HCl] 40 mg PO DAILY 05/21/16 [History] Aspirin [Ecotrin] 325 mg PO DAILY 06/15/16 [History] Ipratropium/Albuterol Neb [Duoneb] 3 ml IH Q6HR 06/15/16 [History] Insulin Glargine,Hum.rec.anlog [Lantus Solostar] 40 unit SQ HS #1 06/17/16 [Rx] Fluticasone Propionate Nasal [Flonase] 2 spr NS DAILY 01/09/17 [History] Albuterol Neb [Proventil Neb] 2.5 mg IH [id number] PRN inh 01/16/17 [Rx] OxyCODONE Immed Rel [Roxicodone 5 MG] 5 mg PO Q6HR PRN #14 tab 01/16/17 [Rx] diazePAM [Valium] 5 mg PO TID PRN #20 01/16/17 [Rx] Anastrozole [Arimidex] 1 mg PO DAILY 03/18/17 [History] Atenolol [Tenormin] 25 mg PO DAILY 03/18/17 [History] Furosemide [Lasix] 20 mg PO BID #28 tab 03/20/17 [Rx] Levofloxacin [Levaquin] 750 mg PO DAILY #14 tablet 03/20/17 [Rx] predniSONE [PredniSONE] 40 mg PO DAILY #6 tablet 03/20/17 [Rx] Allergies/Adverse Reactions: 3 Allergy/AdvReac Type Severity Reaction Status Date / Time acetaminophen [From Tylenol] Allergy Hives Verified 06/15/16 07:25 ibuprofen AdvReac Nausea Verified 06/14/16 20:30 Date of admission: 03/18/17 01:20 Primary care physician: Dimitris Villaseñor CNP Discharging clinician: Bette Gee - Patient Status Disposition: Home, Self-Care Condition: Fair Functional capacity at discharge: independent ambulation Overall status at discharge: patient is progressing back to baseline - Discharge Instructions Follow Up With: Dimitris Villaseñor CNP [Primary Care Provider] - - Diet and Activity Activity: increase activity as tolerated Diet: low fat, low cholesterol, low salt diet Hospital course: Please note this was a discharge done in evening. Ms. Yang is a 61 year old female who presented in transfer from [facility] ER. She presented there with complaints of cough, shortness of breath, decreased by mouth intake, and vague abdominal pain. She was found to have evidence of pneumonia, acute kidney injury, and dehydration. She was given some antibiotics and transferred to [facility] for ongoing care and treatment. Upon arrival, I saw patient at bedside. She was resting and in no apparent distress. She did have some mild cough and shortness of breath, but she felt comfortable on nasal cannula oxygen. She has been hospitalized in last 2 months and just discharged from rehabilitation a week ago. During the last hospitalization, she was hospitalized for pneumonia and sepsis. She now presents with pneumonia again and also has acute kidney injury. She appears dehydrated but in no hemodynamic distress. She admits to having had some nausea and vomiting but no diarrhea. Appetite has been diminished. She denies any chest pain. She has been coughing and wheezing significantly. Despite her pneumonia and COPD, she is a chronic smoker and has no interest in quitting smoking. Blood Cultures were obtained. Her lactate level was normal. She was given IV fluids as well as maintenance IV fluids. She was not given vancomycin as she did have acute kidney injury. She was started on Levaquin and Zosyn. She was also started on prednisone as she was having wheezing associated with COPD. Her diuretics were held because of her kidney injury. Her initial creatinine on arrival was 1.89, after monitoring and supportive care her creatinine came down to 1.49. Her baseline within the past several months has been 1.2. The patient on arrival had a white count of 11.8, after steroids her white count went to 14.4 and then 15.1 respectively. She was afebrile. She clinically was improved sitting upright and eating with good appetite. Her cough and shortness of breath resolved. Patient did note that she has chronically elevated white blood cell count. Reviewing past history it does show that her baseline is 11-15, likely because of chronic steroid use. She was discharged home in stable condition and has verbally agreed to the following instructions: -She is to continue 14 days of Levaquin -She is to follow a low-sodium diet (we had a greater than 10 minute discussion on monitoring sodium and limiting this to avoid excessive diuretic use.) -She is to discontinue metolazone and spironolactone, and continue Lasix at a lower dose. After her follow-up appointment with her primary care physician, they may choose to increased diuretics again at their discretion. -She is to 3 more days of Prednisone 40 mg to complete 6 day burst. -She is to get a BMP in 2 days to monitor renal function. -She is to follow-up with her primary care physician at the next available appointment. Time spent discussing smoking cessation with patient: more than 10 minutes (Low- sodium diet) - Time Spent with Patient Total time spent providing and/or coordinating discharge services: Greater than 30 minutes - Constitutional Vitals: Temp Pulse Resp BP Pulse Ox 98 F 71 16 103/66 95 03/20/17 11:33 03/20/17 11:33 03/20/17 11:33 03/20/17 11:33 03/20/17 11:33 General appearance: Present: cooperative, disheveled, A&O X 3, pleasant, answers questions appropriately Exam: HEENT: Mucus membranes are moist Skin: warm, dry CVS: RRR Lungs: CTAB, no wheezing, no rales Abd: NT/ND Ext: no edema.
[2017-03-20] MEDS ORDERED: FLUARIX QUAD 2017-18 36MOS UP/PF 0.5 ML SYRINGE IM ONE ×2 (19:44→20:35)
[2017-03-20] MEDS ORDERED: Insulin DETEMIR 100 UNIT/ML X5UNITS SQ SCH (21:00)
[2017-03-20] MEDS ORDERED: 0.9 % Sodium Chloride 1,000 ML ONE (21:04)
[2017-03-21] MEDS ORDERED: Levofloxacin 750 MG/150 ML 750 MG/150 ML BAG IVPB SCH (09:00)
== END 2017-03-20 21:37 | disposition home or self-care (01) | DRG 871 ==
LOC: 3ANU → SUATTDRO 03-18 01:20
PROVIDERS: ADMIT Hospitalist; ATTEND Student in an Organized Health Care Education/Training Program

== ENCOUNTER 2017-03-26 19:04 | Observation (INO) ==
[2017-03-26] MEDS ORDERED: Naloxone 0.4 MG/ML INJ IVP PRN (22:41)
[2017-03-26] MEDS ORDERED: *HR* Morphine 2 MG/ML SYRINGE IVP PRN (22:41)
[2017-03-26] MEDS ORDERED: 0.9 % Sodium Chloride 1,000 ML IVC SCH (22:45)
[2017-03-26] MEDS ORDERED: D5% in Water 1,000 ML IVC PRN (22:52)
[2017-03-26] MEDS ORDERED: *HR* Dextrose 50 % in Water (Syg) 50 ML SYRINGE IVP PRN (22:52)
[2017-03-26] MEDS ORDERED: Dextrose Gel 15 GM PO PRN ×2 (22:52)
[2017-03-26] MEDS ORDERED: Ondansetron 4 MG/2 ML VIAL IVP PRN (22:53)
[2017-03-26] MEDS ORDERED: Lactulose Oral Soln 20 GM/30 ML UDC PO ONE (22:54)
[2017-03-26] MEDS ORDERED: Ipratropium/Albuterol Neb 3 ML IH PRN (22:58)
--- NOTE | 2017-03-26 23:05 | Internal Med History&Physical ---
Date of Encounter: 03/26/17 Time of Encounter: 22:00 Assessment and Plan (1) Abdominal pain Current visit: No Status: Acute Etiology is undetermined. Patient has benign abdomen on exam. CT abdominal shows gallbladder thick bile/sludge. Patient has normal bilirubin, liver enzyme level, and lipase. - We will place patient on nothing by mouth, IV fluid. - Pain medication and Zofran for nausea. - Place patient on Levaquin and Flagyl as patient has a low fever at home and questionable abdominal CT for gallbladder. - We will order ABDOMINAL US to further evaluate liver and biliary system. - Will consider GI consult or surgical consult if symptoms not resolved or positive US abdominal results Qualifiers: Abdominal location: generalized Qualified Code(s): R10.84 - Generalized abdominal pain (2) Leucocytosis Current visit: No Status: Acute Patient has a recent pneumonia and was placed on steroid, still on by mouth prednisone now. Probably due to steroid use. However, need to rule out infection as patient also has a fever and abdominal pain. On antibiotic. Qualifiers: Leukocytosis type: leukemoid reaction Qualified Code(s): D72.823 - Leukemoid reaction (3) Diabetes mellitus Current visit: No Status: Chronic Continue basal and sliding scale insulin coverage. 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 We will hold hypertension medications at this point. Closely monitor BP Qualifiers: Hypertension type: essential hypertension Qualified Code(s): I10 - Essential (primary) hypertension (5) COPD (chronic obstructive pulmonary disease) Current visit: No Status: Chronic Patient has a recent hospitalization (discharged 03/20/17) for pneumonia. Still on antibiotic and steroid by mouth. - No signs of COPD exacerbation. No wheezing on auscultation. - Continue antibiotic and steroid and bronchodilator. - Continue oxygen supportive treatment Qualifiers: COPD type: emphysema Emphysema type: unspecified Qualified Code(s): J43.9 - Emphysema, unspecified (6) Tobacco use Current visit: No Status: Resolved Smoking cessation education. Place patient on nicotine patch (7) DVT prophylaxis Current visit: No Status: Inactive Heparin subcutaneously (8) Obstructive sleep apnea Current visit: No Status: Chronic Pt denies use CPAP at home. Please patient on nasal cannula oxygen and continuous pulse oximeter monitoring (9) Morbid obesity with BMI of 45.0-49.9, adult Current visit: No Status: Chronic Need lifestyle modification (10) Breast cancer Current visit: No Status: Chronic S/P surgery. Not on chemotherapy now. Qualifiers: Breast location: unspecified site of breast Patient sex: female Laterality: bilateral Qualified Code(s): C50.911 - Malignant neoplasm of unspecified site of right female breast; C50.912 - Malignant neoplasm of unspecified site of left female breast; C50.912 - Malignant neoplasm of unspecified site of left female breast; C50.912 - Malignant neoplasm of unspecified site of left female breast; C50.912 - Malignant neoplasm of unspecified site of left female breast (11) Pneumonia Current visit: No Status: Acute Patient has a recent hospitalization for pneumonia. Chest x-ray repeated ER, no acute change. - Continue antibiotic Levaquin as patient has not finished the course. Continue to IV now and adjust dose per renal function Qualifiers: Pneumonia type: due to unspecified organism Laterality: left Lung location: lower lobe of lung Qualified Code(s): J18.1 - Lobar pneumonia, unspecified organism (12) Constipation Current visit: No Status: Acute Give patient lactulose 1 dose by mouth. Continue MiraLAX Qualifiers: Constipation type: unspecified constipation type Qualified Code(s): K59.00 - Constipation, unspecified Internal Medicine - H&P: HPI Chief complaint: Abd pain Admitted From: Home Plans for Post Hospital Care: Home History of present illness: Ms. Yang is a 61 year old female with a history of diabetes, hypertension, COPD, Hx of breast cancer, recent hospitalization for pneumonia, presented to the emergency room in [place] for abdominal pain. Patient said pain started about 1 week ago, located in the whole belly, sharp, 10 out of 10, getting worse after eating. Patient denies diarrhea. Patient has nausea since last night, and vomited today for 4 times. The vomiting are stomach content, no blood in it. Patient said that she has low fever at home, which was 100.1. Patient denies shortness of breath or chest pain. In [place] ER, CT abdominal shows constipation and gallbladder wall thickening. Patient was admitted for further management. Past Med Surg Social Fam HX - Past Medical History Medical history: arthritis, asthma, COPD, coronary artery disease, CVA, diabetes , GERD, hyperlipidemia, hypertension, thyroid disease, TIA Psychiatric history: anxiety, depression - Past Surgical History Surgical History: breast surgery, orthopedic, other, other - Social History Smoking Status: Current every day smoker Smokeless Tobacco Status: No (1 PPD) Alcohol use: none Drug use: none - Family History Mother Living Status: Hx Family Cardiac Disorders: Yes Hx Family Respiratory Disorders: Yes (emphysema) Hx Family Cancer: Yes (uterine cancer) Father Living Status: Hx Family Cardiac Disorders: Yes Internal Medicine - H&P: Meds Folic Acid 1 mg PO DAILY 05/23/15 [History] Levothyroxine [Synthroid] 25 mcg PO DAILY 05/23/15 [History] Losartan [Cozaar] 25 mg PO DAILY 05/23/15 [History] metFORMIN [Glucophage] 1,000 mg PO BID 05/23/15 [History] Gabapentin [Neurontin] 300 mg PO TID 10/25/15 [History] Montelukast [Singulair] 10 mg PO DAILY 10/25/15 [History] Oxygen 2.5 l .ROUTE AD 10/25/15 [History] hydrOXYzine HCl [Hydroxyzine HCl] 25 mg PO TID PRN 10/25/15 [History] FLUoxetine HCl [Fluoxetine HCl] 40 mg PO DAILY 05/21/16 [History] Aspirin [Ecotrin] 325 mg PO DAILY 06/15/16 [History] Ipratropium/Albuterol Neb [Duoneb] 3 ml IH Q6HR 06/15/16 [History] Insulin Glargine,Hum.rec.anlog [Lantus Solostar] 40 unit SQ HS #1 06/17/16 [Rx] Fluticasone Propionate Nasal [Flonase] 2 spr NS DAILY 01/09/17 [History] Albuterol Neb [Proventil Neb] 2.5 mg IH [id number] PRN inh 01/16/17 [Rx] OxyCODONE Immed Rel [Roxicodone 5 MG] 5 mg PO Q6HR PRN #14 tab 01/16/17 [Rx] diazePAM [Valium] 5 mg PO TID PRN #20 01/16/17 [Rx] Atenolol [Tenormin] 25 mg PO DAILY 03/18/17 [History] Furosemide [Lasix] 20 mg PO BID #28 tab 03/20/17 [Rx] Levofloxacin [Levaquin] 750 mg PO DAILY #14 tablet 03/20/17 [Rx] predniSONE [PredniSONE] 40 mg PO DAILY #6 tablet 03/20/17 [Rx] Polyethylene Glycol 3350 [MiraLAX Powder Bulk 17.9 Oz] 1 scoop PO DAILY #510 gm 03/22/17 [Rx] 3 Allergy/AdvReac Type Severity Reaction Status Date / Time acetaminophen [From Tylenol] Allergy Hives Verified 03/22/17 20:30 ibuprofen AdvReac Nausea Verified 03/22/17 20:30 NSAIDS (Non-Steroidal AdvReac Nausea Verified 03/22/17 20:30 Anti-Inflamma All Systems PM: A 10-system review of systems was performed and is negative for pertinent findings except as documented above in the HPI. - Constitutional Vitals: Temp Pulse Resp BP Pulse Ox 97.9 F 89 19 98/62 94 03/26/17 21:50 03/26/17 21:50 03/26/17 21:50 03/26/17 21:50 03/26/17 21:50 General appearance: Present: A&O X 3, no acute distress, answers questions appropriately - Head Head exam: Present: atraumatic, normocephalic - Eye Eye exam: Present: PERRL, conjuntiva pink, sclera anicteric Pupils: Present: PERRL - Neck Neck exam general surgery: Present: supple, trachea midline. Absent: lymphadenopathy - Respiratory Respiratory exam: Present: CTAB. Absent: accessory muscle use, rales, rhonchi, wheezes - Cardiovascular Cardiovascular exam: Present: RRR, +S1, +S2. Absent: diastolic murmur, gallop, rubs, systolic murmur - GI/Abdominal GI/Abdominal exam: Present: normal bowel sounds, soft, tenderness (Abdominal tenderness in 4Q, mainly LLQ and RLQ, no rebound or guarding, [place]'s sign negative), no peritoneal signs. Absent: distended - Extremities Exam Extremities exam: Present: warm, radial pulses palpable and symmetrical. Absent : calf tenderness, cyanotic, pedal edema - Neurological Exam Neurological exam: Present: CN II-XII intact, oriented X3, no focal deficits. Absent: pronater drift, facial droop, speech deficit - Skin Skin exam: Present: dry, intact
[2017-03-27] MEDS: MetroNIDAZOLE 500 MG/100 ML 500 MG/100 ML BAG IVPB SCH ×2 (01:25→09:37)
[2017-03-27] MEDS: Insulin DETEMIR 100 UNIT/ML X5UNITS SQ SCH ×2 (01:28→21:31)
[2017-03-27] MEDS: Nicotine 21 MG PATCH.TD24 TD SCH ×2 (01:29→09:37)
[2017-03-27] MEDS: Insulin LISPRO 300 UNITS/3 ML VIAL SQ SCH ×4 (01:30→17:15)
[2017-03-27] MEDS: Ipratropium/Albuterol Neb 3 ML IH SCH ×2 (04:19→10:22)
[2017-03-27 06:53] LABS: Basophils # 0.1 K/mcL (0.0-0.2); Basophils % 0.2 %; Eosinophils # 0.6 K/mcL (0.0-0.6); Eosinophils % 2.9 %; Hematocrit 40.8 % (35.3-44.9); Hemoglobin 12.8 g/dL (11.5-15.4); Immature Granulocytes % 0.6 % (0-4); Lymphocytes # 0.7 K/mcL (0.6-4.6); Lymphocytes % 3.4 %; Mean Corpuscular HGB Conc 31.4 g/dL (31.6-35.5); Mean Corpuscular Hemoglobin 29.9 pg (28.0-33.3); Mean Corpuscular Volume 95.3 fL (83.0-100.0); Mean Platelet Volume 9.7 fL (9.4-12.4); Monocytes # 1.1 K/mcL (0.0-1.3); Monocytes % 5.1 %; Neutrophils # 18.2 K/mcL (1.6-8.9); Platelet Count 219 K/mcL (140-400); Red Blood Count 4.28 M/mcL (3.82-4.97); Red Cell Distribution Width 14.6 % (11.5-14.5); Segmented Neutrophils % 87.8 %
[2017-03-27 07:23] LABS: Albumin 2.5 g/dL (3.5-5.0); Albumin/Globulin Ratio 0.7 (1.1-2.2); Bilirubin,Total 0.4 mg/dL (0.2-1.2); Calcium 9.1 mg/dL (8.6-10.8); Globulin 3.7 g/dL (2.4-3.5); Magnesium 1.3 mg/dL (1.6-2.6); Potassium 4.3 mEq/L (3.5-4.5); Total Protein 6.2 g/dL (6.0-8.3)
[2017-03-27] MEDS ORDERED: predniSONE 20 MG TABLET PO SCH (09:00)
[2017-03-27] MEDS ORDERED: Bisacodyl 10 MG RECTAL SUPPOSITORY RC PRN (09:19)
[2017-03-27] MEDS: *HR* Heparin 5,000 UNIT/ML VIAL SQ SCH ×2 (09:30→17:18)
[2017-03-27] MEDS: 0.9 % Sodium Chloride 1,000 ML IVC SCH ×2 (09:31→17:15)
[2017-03-27] MEDS: Pantoprazole 40 MG VIAL IVP SCH (09:37)
[2017-03-27] MEDS ORDERED: Levofloxacin 500 MG/100 ML 500 MG/100 ML BAG IVPB SCH (10:00)
[2017-03-27] MEDS ORDERED: Milk and Molasses Enema 200 ML RC ONE (13:32)
--- NOTE | 2017-03-27 15:39 | Internal Med Progress Note ---
Date of Encounter: 03/27/17 Time of Encounter: 11:15 - Assessment and plan (1) Abdominal pain Current Visit: Yes Status: Acute Assessment and plan: Most likely due to constipation. Ultrasound of the abdomen does not show any biliary disease. Liver enzymes are also normal. Bilirubin is also normal. Will treat underlying constipation. Qualifiers: Abdominal location: left lower quadrant Qualified Code(s): R10.32 - Left lower quadrant pain (2) Constipation Current Visit: Yes Status: Acute Assessment and plan: Most likely due to chronic narcotic use. We will treat with laxatives and stool softeners. If no relief, will treat with an enema. Qualifiers: Constipation type: drug induced constipation Qualified Code(s): K59.03 - Drug induced constipation (3) COPD (chronic obstructive pulmonary disease) Current Visit: Yes Status: Chronic Assessment and plan: Not in acute exacerbation. Will use bronchodilators as needed. Qualifiers: COPD type: emphysema Emphysema type: unspecified Qualified Code(s): J43.9 - Emphysema, unspecified (4) Diabetes mellitus Current Visit: Yes Status: Chronic Assessment and plan: On insulin per sliding scale. We will continue to monitor blood sugars. 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 home use Chronic kidney disease stage: stage 3 (moderate) Qualified Code(s): E11.22 - Type 2 diabetes mellitus with diabetic chronic kidney disease; N18.3 - Chronic kidney disease, stage 3 (moderate); N18.3 - Chronic kidney disease, stage 3 ( moderate); Z79.4 - internal consultant (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 of insulin; Z79.4 - alf ( 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 of insulin; Z79.4 - alf (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 of insulin; Z79.4 - alf (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 of insulin (5) DVT prophylaxis Current Visit: Yes Status: Acute Assessment and plan: Continue subcutaneous heparin (6) Hypertension Current Visit: Yes Status: Chronic Assessment and plan: Well-controlled Qualifiers: Hypertension type: essential hypertension Qualified Code(s): I10 - Essential (primary) hypertension (7) Leucocytosis Current Visit: Yes Status: Acute Assessment and plan: Likely from steroid use. No signs of active infection. No biliary disease per ultrasound. We will stop antibiotics. Patient has completed treatment for pneumonia. Qualifiers: Leukocytosis type: leukemoid reaction Qualified Code(s): D72.823 - Leukemoid reaction (8) Morbid obesity with BMI of 45.0-49.9, adult Current Visit: Yes Status: Chronic (9) Pneumonia Current Visit: Yes Status: Resolved Assessment and plan: Completed treatment for pneumonia with levofloxacin for 10 days. No need for further antibiotics at this time. Qualifiers: Pneumonia type: due to unspecified organism Laterality: left Lung location: lower lobe of lung Qualified Code(s): J18.1 - Lobar pneumonia, unspecified organism - Subjective Interval history: Patient complaining of continued abdominal discomfort. She has not yet had a bowel movement. She says her last bowel movement was 2-3 weeks back. No nausea or vomiting at this time. - Constitutional Vitals: Temp Pulse Resp BP Pulse Ox 97.5 F L 103 19 131/82 93 03/27/17 11:40 03/27/17 11:40 03/27/17 11:40 03/27/17 11:40 03/27/17 11:40 General appearance: Present: A&O X 3, no acute distress, answers questions appropriately - Neck Neck exam general surgery: Present: supple, trachea midline. Absent: lymphadenopathy - Respiratory Respiratory exam: Present: CTAB. Absent: accessory muscle use, rales, rhonchi, wheezes - Cardiovascular Cardiovascular exam: Present: RRR, +S1, +S2. Absent: diastolic murmur, gallop, rubs, systolic murmur - GI/Abdominal GI/Abdominal exam: Present: distended, normal bowel sounds, soft, no peritoneal signs. Absent: tenderness - Extremities Exam Extremities exam: Present: warm, radial pulses palpable and symmetrical. Absent : calf tenderness, cyanotic, pedal edema Internal Medicine: Result - Labs CBC & Chem 7: 03/27/17 06:29 03/27/17 06:29 Labs: Short CBC 03/27/17 Range/Units 06:29 WBC 20.7 H (4.3-11.1) K/mcL Hgb 12.8 (11.5-15.4) g/dL Hct 40.8 (35.3-44.9) % Plt Count 219 (140-400) K/mcL Neutrophils # 18.2 H (1.6-8.9) K/mcL BMP 03/27/17 06:29 Sodium 142 Potassium 4.3 Chloride 102 Carbon Dioxide 28 BUN 29 H Creatinine 1.23 H Glucose 155 H Calcium 9.1 Liver Function 03/27/17 Range/Units 06:29 Total Bilirubin 0.4 (0.2-1.2) mg/dL AST 12 (5-34) Units/L ALT 7 (0-55) Units/L Alkaline Phosphatase 61 (38-126) Units/L Albumin 2.5 L (3.5-5.0) g/dL - Impressions Impressions Abdomen Ultrasound 03/27/17 09:30 IMPRESSION: 1. Mildly increased echogenicity of the liver could relate to steatosis. 2. Unremarkable gallbladder. D/ / Gabriele Rushing MD / Gabriele Rushing MD Interpreting Provider: Gabriele Rushing MD Consult Discharge Plan - Plan Referrals: Dimitris Villaseñor CNP [Primary Care Provider] -
[2017-03-27] MEDS ORDERED: *HR* OxyCODONE Immed Rel 5 MG TABLET PO PRN (15:45)
[2017-03-27] MEDS ORDERED: diazePAM 5 MG TABLET PO PRN (15:45)
[2017-03-27] MEDS ORDERED: Insulin LISPRO 300 UNITS/3 ML VIAL SQ SCH (21:00)
[2017-03-27] MEDS: Furosemide 20 MG TABLET PO SCH (21:31)
[2017-03-27] MEDS: Gabapentin 300 MG CAPSULE PO SCH (21:31)
[2017-03-28 06:07] LABS: Basophils % 0.1 %; Eosinophils # 0.4 K/mcL (0.0-0.6); Eosinophils % 2.2 %; Hematocrit 35.6 % (35.3-44.9); Hemoglobin 11.3 g/dL (11.5-15.4); Immature Granulocytes % 0.6 % (0-4); Lymphocytes # 1.4 K/mcL (0.6-4.6); Lymphocytes % 7.4 %; Mean Corpuscular HGB Conc 31.7 g/dL (31.6-35.5); Mean Corpuscular Hemoglobin 29.9 pg (28.0-33.3); Mean Corpuscular Volume 94.2 fL (83.0-100.0); Mean Platelet Volume 9.6 fL (9.4-12.4); Monocytes % 5.2 %; Platelet Count 217 K/mcL (140-400); Red Blood Count 3.78 M/mcL (3.82-4.97); Red Cell Distribution Width 14.6 % (11.5-14.5); Segmented Neutrophils % 84.5 %
[2017-03-28 06:20] LABS: BUN/Creatinine Ratio 18 (6-26); Blood Urea Nitrogen 14 mg/dL (7-20); Carbon Dioxide 27 mEq/L (19-29); Chloride 103 mEq/L (98-109); Glucose 86 mg/dL (70-99); Osmolality,Calculated 288 (280-300); Potassium 3.5 mEq/L (3.5-4.5); Sodium 139 mEq/L (136-145); eGFR For African Americans > 60 (> 60); eGFR For Non-African Americans > 60 (> 60)
[2017-03-28] MEDS ORDERED: Levothyroxine 25 MCG TABLET PO SCH (06:30)
[2017-03-28 06:38] VITALS: BP 109/83
[2017-03-28] MEDS: *HR* Heparin 5,000 UNIT/ML VIAL SQ SCH (06:43)
[2017-03-28] MEDS: Insulin LISPRO 300 UNITS/3 ML VIAL SQ SCH ×2 (07:54→11:33)
[2017-03-28] MEDS: Nicotine 21 MG PATCH.TD24 TD SCH (07:58)
[2017-03-28] MEDS: Furosemide 20 MG TABLET PO SCH (07:58)
[2017-03-28] MEDS: Gabapentin 300 MG CAPSULE PO SCH (07:58)
[2017-03-28] MEDS: Pantoprazole 40 MG VIAL IVP SCH (07:58)
[2017-03-28] MEDS ORDERED: FLUoxetine 20 MG CAPSULE PO SCH (09:00)
[2017-03-28] MEDS ORDERED: Folic Acid 1 MG TABLET PO SCH (09:00)
[2017-03-28] MEDS ORDERED: Fluticasone Propionate Nasal 50 MCG/SPRAY BOTTLE NS SCH (09:00)
[2017-03-28] MEDS ORDERED: Aspirin Enteric Coated 325 MG Tablet PO SCH (09:00)
--- NOTE | 2017-03-28 09:26 | Discharge Summary ---
Date of Encounter: 03/28/17 Time of Encounter: 09:04 - Discharge Diagnosis (1) Abdominal pain Priority: Primary Status: Acute Qualifiers: Abdominal location: left lower quadrant Qualified Code(s): R10.32 - Left lower quadrant pain (2) Constipation Priority: Secondary Status: Acute Qualifiers: Constipation type: drug induced constipation Qualified Code(s): K59.03 - Drug induced constipation (3) COPD (chronic obstructive pulmonary disease) Priority: Secondary Status: Chronic Qualifiers: COPD type: emphysema Emphysema type: unspecified Qualified Code(s): J43.9 - Emphysema, unspecified (4) Diabetes mellitus Priority: Secondary Status: Chronic Qualifiers: Diabetes mellitus type: type 2 Diabetes mellitus complication status: with kidney complications Diabetes mellitus complication detail: with chronic kidney disease 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-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 Chronic kidney disease stage: stage 3 (moderate) Qualified Code(s): E11.22 - Type 2 diabetes mellitus with diabetic chronic kidney disease; N18.3 - Chronic kidney disease, stage 3 (moderate); N18.3 - Chronic kidney disease, stage 3 ( moderate); Z79.4 - alf (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 of insulin; Z79.4 - alf ( 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 of insulin; Z79.4 - termination clerk (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 of insulin; Z79.4 - termination clerk (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 of insulin (5) DVT prophylaxis Priority: Secondary Status: Acute (6) Hypertension Priority: Secondary Status: Chronic Qualifiers: Hypertension type: essential hypertension Qualified Code(s): I10 - Essential (primary) hypertension (7) Leucocytosis Priority: Secondary Status: Acute Qualifiers: Leukocytosis type: leukemoid reaction Qualified Code(s): D72.823 - Leukemoid reaction (8) Morbid obesity with BMI of 45.0-49.9, adult Priority: Secondary Status: Chronic (9) Pneumonia Priority: Secondary Status: Resolved Qualifiers: Pneumonia type: due to unspecified organism Laterality: left Lung location: lower lobe of lung Qualified Code(s): J18.1 - Lobar pneumonia, unspecified organism - Discharge Medications Prescriptions: Bisacodyl [Dulcolax] 10 mg RC DAILY PRN #10 supp.rect PRN Reason: Constipation Docusate [Colace] 100 mg PO BID #60 capsule Polyethylene Glycol 3350 [MiraLAX Powder Bulk 17.9 Oz] 1 scoop PO DAILY #510 gm Home Medications: Folic Acid 1 mg PO DAILY 05/23/15 [History] Levothyroxine [Synthroid] 25 mcg PO DAILY 05/23/15 [History] Losartan [Cozaar] 25 mg PO DAILY 05/23/15 [History] metFORMIN [Glucophage] 1,000 mg PO BID 05/23/15 [History] Gabapentin [Neurontin] 300 mg PO TID 10/25/15 [History] Montelukast [Singulair] 10 mg PO DAILY 10/25/15 [History] Oxygen 2.5 l .ROUTE AD 10/25/15 [History] hydrOXYzine HCl [Hydroxyzine HCl] 25 mg PO TID PRN 10/25/15 [History] FLUoxetine HCl [Fluoxetine HCl] 40 mg PO DAILY 05/21/16 [History] Aspirin [Ecotrin] 325 mg PO DAILY 06/15/16 [History] Ipratropium/Albuterol Neb [Duoneb] 3 ml IH Q6HR 06/15/16 [History] Insulin Glargine,Hum.rec.anlog [Lantus Solostar] 40 unit SQ HS #1 06/17/16 [Rx] Fluticasone Propionate Nasal [Flonase] 2 spr NS DAILY 01/09/17 [History] Albuterol Neb [Proventil Neb] 2.5 mg IH [id number] PRN inh 01/16/17 [Rx] OxyCODONE Immed Rel [Roxicodone 5 MG] 5 mg PO Q6HR PRN #14 tab 01/16/17 [Rx] diazePAM [Valium] 5 mg PO TID PRN #20 01/16/17 [Rx] Furosemide [Lasix] 20 mg PO BID #28 tab 03/20/17 [Rx] Bisacodyl [Dulcolax] 10 mg RC DAILY PRN #10 supp.rect 03/28/17 [Rx] Carvedilol [Coreg] 6.25 mg PO BID 03/28/17 [History] Docusate [Colace] 100 mg PO BID #60 capsule 03/28/17 [Rx] Polyethylene Glycol 3350 [MiraLAX Powder Bulk 17.9 Oz] 1 scoop PO DAILY #510 gm 03/28/17 [Rx] Allergies/Adverse Reactions: 3 Allergy/AdvReac Type Severity Reaction Status Date / Time acetaminophen [From Tylenol] Allergy Hives Verified 03/22/17 20:30 ibuprofen AdvReac Nausea Verified 03/22/17 20:30 NSAIDS (Non-Steroidal AdvReac Nausea Verified 03/22/17 20:30 Anti-Inflamma Procedures/tests Complete & Pending: Procedures Performed prior 72 hours Category Date Time Status US abdomen limited [US] Routine Exams 03/27/17 09:30 Completed Date of admission: 03/26/17 21:12 Primary care physician: Dimitris Villaseñor CNP Discharging clinician: Dionicio Pederson Anticipated date of discharge: 03/28/17 - Patient Status Disposition: Home, Self-Care Condition: Good Functional capacity at discharge: independent ambulation Overall status at discharge: patient is progressing back to baseline - Discharge Instructions Follow Up With: Danyelle Venegas CNP [Advanced Practice Nurse] - 04/02/17 10:30 am - Diet and Activity Activity: increase activity as tolerated, wear oxygen at all times Diet: diabetic diet, low fat, low cholesterol, low salt diet, other (increase fiber in diet) Hospital course: Ms. Yang is a 61 year old female patient who was transferred here from [facility] with suspected biliary disease based on CT scan findings. On initial presentation she had complained of abdominal pain. CT scan of the abdomen and pelvis says to presence of cholelithiasis and biliary sludge and significant constipation. She did not have an elevation in her liver enzymes are alkaline phosphatase. She was transferred over here for further evaluation. Ultrasound of the abdomen did not show any cholelithiasis. Patient had been recently discharged from the hospital after being treated for pneumonia and was completing antibiotic course along with steroid taper. She reported that she had not had a bowel movement for 2-3 weeks. As such, she was started on stool softeners with no improvement in her symptoms. She then received a milk of molasses enema and had multiple bowel movements soon after. She is now feeling much better. She is clinically stable for discharge. She is advised to take stool softeners regularly as she is on chronic narcotic pain medications. - Time Spent with Patient Total time spent providing and/or coordinating discharge services: Less than 30 minutes (20 min) - Constitutional Vitals: Temp Pulse Resp BP Pulse Ox 98.6 F 76 19 109/83 95 03/28/17 06:33 03/28/17 06:33 03/28/17 06:33 03/28/17 06:33 03/28/17 06:47 General appearance: Present: A&O X 3, no acute distress, answers questions appropriately - Respiratory Respiratory exam: Present: CTAB. Absent: accessory muscle use, rales, rhonchi, wheezes - Cardiovascular Cardiovascular exam: Present: RRR, +S1, +S2. Absent: diastolic murmur, gallop, rubs, systolic murmur - GI/Abdominal GI/Abdominal exam: Present: normal bowel sounds, soft, no peritoneal signs. Absent: distended, tenderness
== END 2017-03-28 11:38 | disposition home or self-care (01) ==
LOC: 3ANU
PROVIDERS: ADMIT Internal Medicine; ATTEND Internal Medicine

== ENCOUNTER 2017-04-04 16:11 | Inpatient (IN) ==
--- NOTE | 2017-04-04 22:56 | Internal Med History&Physical ---
Date of Encounter: 04/04/17 Time of Encounter: 22:49 Assessment and Plan (1) Tobacco abuse Current visit: Yes Status: Acute I advised smoking cessation and providing counseling. (2) COPD exacerbation Current visit: Yes Status: Acute IV steroids. Inhaled albuterol and ipratropium. IV antibiotics. Oxygen by nasal cannula. (3) DVT prophylaxis Current visit: No Status: Acute Subcutaneous heparin. She has a history of DVT and lower extremity pitting edema and therefore will check lower extremity Dopplers to rule out DVT. (4) Morbid obesity with BMI of 45.0-49.9, adult Current visit: No Status: Chronic Outpatient weight loss regimen. (5) HCAP (healthcare-associated pneumonia) Current visit: No Status: Acute (6) Acute kidney injury Current visit: No Status: Acute Baseline creatinine is within normal range per record review. She has significant elevation likely secondary to dehydration due to vomiting as well as use of NSAID and Cozaar . We will treat her with IV fluids. Avoid nephrotoxins.Monitor kidney function. (7) Abdominal pain Current visit: No Status: Acute IV morphine for pain. Qualifiers: Abdominal location: left lower quadrant Qualified Code(s): R10.32 - Left lower quadrant pain (8) Lingular pneumonia Current visit: No Status: Acute I personally reviewed the CT. There is a lingular infiltrate. Patient has cough with sputum production. She has recent admissions within the last 30 days. We will treat her with Zosyn and Levaquin to cover gram-negative rods and atypicals. I will avoid vancomycin due to acute kidney injury. We will obtain sputum culture. (9) Ileus, unspecified Current visit: No Status: Acute (10) Small bowel obstruction Current visit: Yes Status: Acute Differential includes severe constipation, ileus and small bowel obstruction. Nothing by mouth. IV fluids. Enema. General surgery consult. (11) Type 2 diabetes mellitus Current visit: Yes Status: Acute Insulin sliding scale. 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 Yang is a 61 year old female with multiple medical comorbidities including type 2 diabetes, CVA, COPD, tobacco abuse, morbid obesity, CAD, chronic hypoxic respiratory failure who was sent from [facility] due to small bowel obstruction. She presented there with abdominal pain, nausea and vomiting. She reports 2 days of worsening lower abdominal pain, today was severe, aching, worse with moving around. She reports associated nausea and multiple episodes of vomiting. She was recently admitted to our hospital and discharged home one week ago. She states that she has not had a bowel movement since discharge. She suffers with chronic constipation and was prescribed a bowel regimen which she reports she has been following at home. She has noticed increasing cough with sputum production over the last several days but denies chest pain and fever. Workup at the outside hospital included CT of the abdomen which showed small bowel obstruction and lingular infiltrate. She was given bronchodilators, IV fluids and vancomycin and transferred to our facility for further care. Review of systems positive for shortness of breath, wheezing, constipation, abdominal pain, otherwise negative. Family history: Positive for coronary artery disease in both parents, positive for colon cancer in the patient's sister Social history: Patient smokes 1 pack of cigarettes a day, denies alcohol and drug use. She ambulates with a walker. She lives with family who takes care of her. During the last admission she was referred to subacute rehabilitation but she adamantly refused. Past Med Surg Social Fam HX - Past Medical History Medical history: arthritis, asthma, COPD, coronary artery disease, CVA, diabetes , GERD, hyperlipidemia, hypertension, thyroid disease, TIA Psychiatric history: anxiety, depression - Past Surgical History Surgical History: breast surgery, orthopedic, other, other - Social History Smoking Status: Current every day smoker Smokeless Tobacco Status: No (1 PPD) Alcohol use: none Drug use: none - Family History Mother Living Status: Hx Family Cardiac Disorders: Yes Hx Family Respiratory Disorders: Yes (emphysema) Hx Family Cancer: Yes (uterine cancer) Father Living Status: Hx Family Cardiac Disorders: Yes Internal Medicine - H&P: Meds Folic Acid 1 mg PO DAILY 05/23/15 [History] Levothyroxine [Synthroid] 25 mcg PO DAILY 05/23/15 [History] Losartan [Cozaar] 25 mg PO DAILY 05/23/15 [History] metFORMIN [Glucophage] 1,000 mg PO BID 05/23/15 [History] Gabapentin [Neurontin] 300 mg PO TID 10/25/15 [History] Montelukast [Singulair] 10 mg PO DAILY 10/25/15 [History] Oxygen 2.5 l .ROUTE AD 10/25/15 [History] hydrOXYzine HCl [Hydroxyzine HCl] 25 mg PO TID PRN 10/25/15 [History] FLUoxetine HCl [Fluoxetine HCl] 40 mg PO DAILY 05/21/16 [History] Aspirin [Ecotrin] 325 mg PO DAILY 06/15/16 [History] Ipratropium/Albuterol Neb [Duoneb] 3 ml IH Q6HR 06/15/16 [History] Insulin Glargine,Hum.rec.anlog [Lantus Solostar] 40 unit SQ HS #1 06/17/16 [Rx] Fluticasone Propionate Nasal [Flonase] 2 spr NS DAILY 01/09/17 [History] Albuterol Neb [Proventil Neb] 2.5 mg IH H4SETUP PRN inh 01/16/17 [Rx] OxyCODONE Immed Rel [Roxicodone 5 MG] 5 mg PO Q6HR PRN #14 tab 01/16/17 [Rx] diazePAM [Valium] 5 mg PO TID PRN #20 01/16/17 [Rx] Furosemide [Lasix] 20 mg PO BID #28 tab 03/20/17 [Rx] Bisacodyl [Dulcolax] 10 mg RC DAILY PRN #10 supp.rect 03/28/17 [Rx] Carvedilol [Coreg] 6.25 mg PO BID 03/28/17 [History] Docusate [Colace] 100 mg PO BID #60 capsule 03/28/17 [Rx] Polyethylene Glycol 3350 [MiraLAX Powder Bulk 17.9 Oz] 1 scoop PO DAILY #510 gm 03/28/17 [Rx] 3 Allergy/AdvReac Type Severity Reaction Status Date / Time acetaminophen [From Tylenol] Allergy Hives Verified 04/04/17 13:05 ibuprofen AdvReac Nausea Verified 04/04/17 13:05 NSAIDS (Non-Steroidal AdvReac Nausea Verified 04/04/17 13:05 Anti-Inflamma All Systems PM: A 10-system review of systems was performed and is negative for pertinent findings except as documented above in the HPI. - Constitutional Vitals: Temp Pulse Resp BP Pulse Ox 97.5 F L 74 16 107/75 91 04/04/17 19:20 04/04/17 19:20 04/04/17 19:20 04/04/17 19:20 04/04/17 19:20 General appearance: Present: A&O X 3, morbidly obese, no acute distress - Eye Eye exam: Present: PERRL, conjuntiva pink, sclera anicteric Pupils: Present: PERRL - Respiratory Respiratory exam: Present: CTAB, rales, wheezes. Absent: accessory muscle use, rhonchi - Cardiovascular Cardiovascular exam: Present: RRR, +S1, +S2. Absent: diastolic murmur, gallop, rubs, systolic murmur - GI/Abdominal GI/Abdominal exam: Present: hypoactive bowel sounds, soft, tenderness, no peritoneal signs. Absent: distended - Extremities Exam Extremities exam: Present: pedal edema, warm, radial pulses palpable and symmetrical. Absent: calf tenderness, cyanotic - Neurological Exam Neurological exam: Present: CN II-XII intact, oriented X3, no focal deficits. Absent: pronater drift, facial droop, speech deficit - Skin Skin exam: Present: dry, intact Additional comments: Upper extremity and abdominal bruising Internal Med - H&P Results - Labs Labs: Laboratory data from [place] revealed white blood cell count of 26.3, hemoglobin 14.3, platelet count 273. INR 1.4. Sodium 137 potassium 4.9 chloride 93, BUN 29, creatinine 2.48, glucose 217, troponin 0.01. BNP 15. Urinalysis was negative. CT abdomen and pelvis from [place] : CT/CT abd pelvis wo iv oral only IMPRESSION: 1. There is mild fluid-filled dilation of small bowel, along with a moderate to large amount of stool in a redundant colon. Most likely this represents ileus along with constipation in the setting of intestinal stasis. Developing small bowel obstruction still remains in the differential, and therefore close clinical and radiographic follow-up is necessary. 2. Since the patient did ingest oral contrast, serial abdominal radiographs could be helpful to monitor progression of the contrast. 3. Increased airspace disease in the lateral segment of the lingula. Pneumonia and atelectasis are both considered. 4. Hyperdensity within the gallbladder, and therefore gallbladder sludge and gallstones are likely. - EKG Data -: EKG Interpreted by Myself EKG shows normal: sinus rhythm, axis, intervals Rate: tachycardia
[2017-04-04] MEDS ORDERED: *HR* OxyCODONE Immed Rel 5 MG TABLET PO PRN (23:14)
[2017-04-04] MEDS ORDERED: Acetaminophen 325 MG TABLET PO PRN (23:14)
[2017-04-04] MEDS ORDERED: Naloxone 0.4 MG/ML INJ IVP PRN (23:14)
[2017-04-04] MEDS ORDERED: *HR* Promethazine 25 MG/ML VIAL IVP PRN (23:14)
[2017-04-04] MEDS ORDERED: Milk and Molasses Enema 200 ML RC ONE (23:21)
[2017-04-04] MEDS ORDERED: Dextrose Gel 15 GM PO PRN ×2 (23:22)
[2017-04-04] MEDS ORDERED: *HR* Dextrose 50 % in Water (Syg) 50 ML SYRINGE IVP PRN (23:22)
[2017-04-04] MEDS ORDERED: D5% in Water 1,000 ML IVC PRN (23:22)
[2017-04-04] MEDS ORDERED: Piperacillin/Tazobactam 3.375 GM in 0.9 % Sodium Chloride Mini Bag 100 ML IVPB SCH (23:30)
[2017-04-04] MEDS ORDERED: Levofloxacin 750 MG/150 ML 750 MG/150 ML BAG IVPB SCH (23:45)
[2017-04-05] MEDS: methylPREDNISolone 125 MG/2 ML VIAL IVP SCH ×5 (00:04→23:36)
[2017-04-05] MEDS: 0.9 % Sodium Chloride 1,000 ML IVC SCH ×3 (00:05→23:41)
[2017-04-05] MEDS: Insulin LISPRO 300 UNITS/3 ML VIAL SQ SCH ×5 (00:07→23:45)
[2017-04-05 01:04] LABS: Red Cell Distribution Width 14.8 % (11.5-14.5)
[2017-04-05] MEDS: Ipratropium/Albuterol Neb 3 ML IH SCH ×7 (01:05→23:32)
[2017-04-05 01:06] LABS: Hematocrit 39.5 % (35.3-44.9); Hemoglobin 12.5 g/dL (11.5-15.4); Mean Corpuscular HGB Conc 31.6 g/dL (31.6-35.5); Mean Corpuscular Hemoglobin 29.4 pg (28.0-33.3); Mean Corpuscular Volume 92.9 fL (83.0-100.0); Nucleated Red Blood Cells 0.1 /100 WBC (0); Platelet Count 229 K/mcL (140-400); Red Blood Count 4.25 M/mcL (3.82-4.97)
[2017-04-05 01:20] LABS: Calcium 9.3 mg/dL (8.6-10.8)
[2017-04-05 01:23] LABS: Potassium 4.5 mEq/L (3.5-4.5)
[2017-04-05 01:46] LABS: Monocytes # 0.5 K/mcL (0.0-1.3); Neutrophils # 23.6 K/mcL (1.6-8.9); Platelet Estimate Normal (Normal)
[2017-04-05] MEDS: *HR* Heparin 5,000 UNIT/ML VIAL SQ SCH ×2 (05:30→18:06)
[2017-04-05] MEDS ORDERED: Milk and Molasses Enema 200 ML RC ONE (08:00)
[2017-04-05] MEDS: Ondansetron 4 MG/2 ML VIAL IVP PRN (09:59)
--- NOTE | 2017-04-05 13:42 | Event Note ---
Date of Encounter: 04/05/17 Time of Encounter: 13:30 I am aware of the surgical consultation placed after patient presented to [facility] ED with abdominal pain, N/V. Surgical consultation was placed after a CT of the abdomen and pelvis showed dilated loops of small bowel consistent with an ileus but the radiologist could not exclude an early small bowel obstruction. Recent hospitalizations include: 03/18, after presenting to [facility] with cough shortness of breath and decreased oral intake. Notations from that admission described a vague abdominal pain. Patient was also admitted, 03/26/17, after presenting to [facility] with complaints with nausea/vomiting. the last bowel movement was reported to be over 3 weeks prior to this presentation. A CT of the abd/pelvis completed at that time showed moderate stool load involving the colon without small bowel dilatation. Attenuation of the gallbladder was also noted with subsequent ultrasound of the gallbladder showing an unremarkable gallbladder without evidence of pericholecystic fluid, wall thickening or stones. Current findings are consistent with opioid-induced constipation, exacerbated by dehydration and recent pneumonia. Small bowel follow-through is in progress and so far demonstrates no evidence of a bowel obstruction. I will continue to monitor the SBFT and make further recommendations should a SBO be evident.
[2017-04-05] MEDS ORDERED: Piperacillin/Tazobactam 3.375 GM in 0.9 % Sodium Chloride Mini Bag 100 ML IVPB SCH (14:00)
[2017-04-05] MEDS: *HR* Morphine 2 MG/ML SYRINGE IVP PRN ×2 (14:40→21:05)
[2017-04-05 15:48] LABS: ABG Base Excess 4 mEq/L (-2 to 3); ABG HCO3 30 mEq/L (21-27); ABG Oxygen Saturation 86 % (95-98); ABG PCO2 51 mmHg (35-45); ABG PH 7.38 pH Units (7.32-7.45); ABG PO2 53 mmHg (85-104); ABG TCO2 31 mEq/L (20-26)
[2017-04-05 17:59] LABS: ABG Base Excess 4 mEq/L (-2 to 3); ABG HCO3 30 mEq/L (21-27); ABG Oxygen Saturation 94 % (95-98); ABG PCO2 51 mmHg (35-45); ABG PH 7.38 pH Units (7.32-7.45); ABG PO2 74 mmHg (85-104); ABG TCO2 31 mEq/L (20-26)
[2017-04-05] MEDS: Nicotine 21 MG PATCH.TD24 TD SCH (18:08)
--- NOTE | 2017-04-05 18:59 | Internal Med Progress Note ---
Date of Encounter: 04/05/17 Time of Encounter: 12:00 - Assessment and plan (1) HCAP (healthcare-associated pneumonia) Current Visit: No Status: Acute Assessment and plan: -Continue treatment with IV Zosyn/Levaquin (2) COPD exacerbation Current Visit: Yes Status: Acute Assessment and plan: -Continue treatment with IV Solu-Medrol (3) Abdominal pain Current Visit: No Status: Acute Assessment and plan: -Patient with suspected small bowel obstruction and surgery following Qualifiers: Abdominal location: generalized Qualified Code(s): R10.84 - Generalized abdominal pain - Subjective Interval history: Patient complains of abdominal pain this morning - Constitutional Vitals: Temp Pulse Resp BP Pulse Ox 98.1 F 109 21 126/79 90 04/05/17 16:04 04/05/17 16:04 04/05/17 16:16 04/05/17 16:04 04/05/17 16:16 General appearance: Present: A&O X 3, morbidly obese, no acute distress - Respiratory Respiratory exam: Present: CTAB. Absent: accessory muscle use, rales, rhonchi, wheezes - Cardiovascular Cardiovascular exam: Present: RRR, +S1, +S2. Absent: diastolic murmur, gallop, rubs, systolic murmur - GI/Abdominal GI/Abdominal exam: Present: tenderness Internal Medicine: Result - Labs CBC & Chem 7: 04/05/17 00:24 04/05/17 00:24 Labs: Short CBC 04/05/17 Range/Units 00:24 WBC 25.1 H (4.3-11.1) K/mcL Hgb 12.5 D (11.5-15.4) g/dL Hct 39.5 (35.3-44.9) % Plt Count 229 (140-400) K/mcL Neutrophils # 23.6 H (1.6-8.9) K/mcL BMP 04/05/17 00:24 Sodium 135 L Potassium 4.5 Chloride 95 L Carbon Dioxide 23 BUN 32 H Creatinine 2.16 H Glucose 172 H Calcium 9.3 Cardiac Enzymes 04/05/17 04/05/17 Range/Units 00:24 04:51 Troponin I 0.01 0.02 (0-0.03) ng/mL - ABG Interpretation ABG results: ABG ABG pH 7.38 pH Units (7.32-7.45) 04/05/17 17:57 ABG pCO2 51 mmHg (35-45) H 04/05/17 17:57 ABG pO2 74 mmHg (85-104) L 04/05/17 17:57 ABG O2 Saturation 94 % (95-98) L 04/05/17 17:57 Consult Discharge Plan - Plan Referrals: Dimitris Villaseñor, JARRETT [Primary Care Provider] -
[2017-04-05] MEDS: diazePAM 5 MG TABLET PO PRN (21:04)
[2017-04-05] MEDS ORDERED: 0.9 % Sodium Chloride 1,000 ML ONE (23:33)
[2017-04-06] MEDS: Piperacillin/Tazobactam 3.375 GM in 0.9 % Sodium Chloride Mini Bag 100 ML IVPB SCH ×3 (03:00→20:50)
[2017-04-06] MEDS: Ipratropium/Albuterol Neb 3 ML IH SCH ×6 (03:49→23:37)
[2017-04-06 04:07] LABS: ABG Base Excess 3 mEq/L (-2 to 3); ABG HCO3 31 mEq/L (21-27); ABG Oxygen Saturation 91 % (95-98); ABG PCO2 59 mmHg (35-45); ABG PH 7.33 pH Units (7.32-7.45); ABG PO2 66 mmHg (85-104); ABG TCO2 33 mEq/L (20-26); Blood Gas Modality BIVENT
[2017-04-06] MEDS: Insulin LISPRO 300 UNITS/3 ML VIAL SQ SCH ×3 (05:36→18:27)
[2017-04-06] MEDS: *HR* Heparin 5,000 UNIT/ML VIAL SQ SCH ×2 (05:38→18:27)
[2017-04-06] MEDS: methylPREDNISolone 125 MG/2 ML VIAL IVP SCH (05:41)
[2017-04-06] MEDS: Nicotine 21 MG PATCH.TD24 TD SCH (08:19)
[2017-04-06] MEDS: diazePAM 5 MG TABLET PO PRN ×2 (08:39→19:07)
[2017-04-06] MEDS: *HR* Morphine 2 MG/ML SYRINGE IVP PRN ×2 (08:39→19:07)
[2017-04-06 09:33] LABS: Basophils % 0.1 %; Hematocrit 37.4 % (35.3-44.9); Immature Granulocytes % 0.5 % (0-4); Lymphocytes % 1.5 %; Mean Corpuscular HGB Conc 32.1 g/dL (31.6-35.5); Mean Corpuscular Hemoglobin 29.8 pg (28.0-33.3); Mean Corpuscular Volume 92.8 fL (83.0-100.0); Mean Platelet Volume 9.1 fL (9.4-12.4); Monocytes # 0.4 K/mcL (0.0-1.3); Monocytes % 1.6 %; Neutrophils # 22.5 K/mcL (1.6-8.9); Platelet Count 276 K/mcL (140-400); Red Blood Count 4.03 M/mcL (3.82-4.97); Red Cell Distribution Width 14.7 % (11.5-14.5); Segmented Neutrophils % 96.3 %
[2017-04-06 09:34] LABS: Lymphocytes # 0.4 K/mcL (0.6-4.6)
[2017-04-06 09:44] LABS: Calcium 9.4 mg/dL (8.6-10.8); Potassium 4.4 mEq/L (3.5-4.5)
--- NOTE | 2017-04-06 11:48 | Pulmonology Consult Note ---
Date of Encounter: 04/06/17 Time of Encounter: 11:35 Assessment and Plan (1) Acute and chronic respiratory failure ([id number]) Current Visit: Yes Status: Acute This patient has had CT chest in the past few months which showed evidence of tracheomalacia which is most likely acquired from possibly smoking and she continued to smoke tobacco with acute on chronic primarily hypoxic respiratory failure most likely secondary from atelectasis and now with abdominal pain she is not taking deep breath and mostly immobile in the bed not willing to participate in physical therapy and to get out of bed because she is complaining of back pain and weakness. I had a long discussion with patient and also family at the bedside in order to feel better then she needs to be mobile, incentive spirometry, head of bed elevated, and noninvasive ventilation as much as tolerated as well as quit smoking and treatment of her COPD in order to feel better. I do not feel strongly she has COPD exacerbation. Continue bronchodilators. SPO2 of 89% is acceptable. I suspect she has obesity hypoventilation syndrome. I did not change her noninvasive ventilation setting with increasing EPAP for more support and positive pressure to open up the trachea. Thank you very much for consultation we will continue follow-up on his call for any questions. Qualifiers: Respiratory failure complication: hypoxia and hypercapnia Qualified Code(s) : J96.21 - Acute and chronic respiratory failure with hypoxia; J96.22 - Acute and chronic respiratory failure with hypercapnia; J96.22 - Acute and chronic respiratory failure with hypercapnia; J96.22 - Acute and chronic respiratory failure with hypercapnia (2) Tracheomalacia, acquired Current Visit: Yes Status: Chronic (3) Atelectasis of both lungs Current Visit: Yes Status: Acute This is from abdominal pain as well as not taking deep breaths and not being mobile. I encouraged her to have incentive spirometry and positive airway pressure. She understands if she does not participate and her condition deteriorate she will need invasive mechanical ventilation. (4) COPD (chronic obstructive pulmonary disease) Current Visit: No Status: Chronic I have stopped systemic steroid and Levaquin. I do not feel strongly patient has COPD exacerbation and systemic steroid have complication with myopathy. Symbicort added to the treatment. Qualifiers: COPD type: emphysema Emphysema type: unspecified Qualified Code(s): J43.9 - Emphysema, unspecified (5) Tobacco use Current Visit: No Status: Chronic Advised patient to quit smoking. History of Present Illness Consult date: 04/06/17 Requesting physician: Shen Moreno Reason for consult: COPD, hypoxemia Chief complaint: Nausea and vomiting History of present illness: This is a 61-year-old female with significant history of COPD and continues smoke tobacco about a pack a day and she is on oxygen at home 2.5 L and she is not very active and mostly bedbound who was found to be hypoxic and pulmonary consult or an evaluation. Patient was sent to to [facility] for management of small bowel obstruction and patient has been seen by surgeon. Patient has abdominal pain but she is asking for water and food. Patient is not active complaining of back pain and weakness of lower extremities. She does not like noninvasive ventilation and she suffers from chronic constipation. Patient denies any significant changes in her baseline productive sputum or wheezing and she is more short of breath. Chest pain and denies any fever or chills. She has had previous CT chest which showed tracheomalacia. Past Med Surg Social Fam HX - Past Medical History Medical history: arthritis, asthma, COPD, coronary artery disease, CVA, diabetes , GERD, hyperlipidemia, hypertension, thyroid disease, TIA Psychiatric history: anxiety, depression - Past Surgical History Surgical History: breast surgery, orthopedic, other, other - Social History Smoking Status: Current every day smoker Packs per day: 1 Smokeless Tobacco Status: No Alcohol use: none Drug use: none - Family History Mother Living Status: Hx Family Cardiac Disorders: Yes Hx Family Respiratory Disorders: Yes (emphysema) Hx Family Cancer: Yes (uterine cancer) Father Living Status: Hx Family Cardiac Disorders: Yes Medications and Allergies Folic Acid 1 mg PO DAILY 05/23/15 [History] Levothyroxine [Synthroid] 25 mcg PO DAILY 05/23/15 [History] Losartan [Cozaar] 25 mg PO DAILY 05/23/15 [History] metFORMIN [Glucophage] 1,000 mg PO BID 05/23/15 [History] Gabapentin [Neurontin] 300 mg PO TID 10/25/15 [History] Montelukast [Singulair] 10 mg PO DAILY 10/25/15 [History] Oxygen 2.5 l .ROUTE AD 10/25/15 [History] hydrOXYzine HCl [Hydroxyzine HCl] 25 mg PO TID PRN 10/25/15 [History] FLUoxetine HCl [Fluoxetine HCl] 40 mg PO DAILY 05/21/16 [History] Aspirin [Ecotrin] 325 mg PO DAILY 06/15/16 [History] Ipratropium/Albuterol Neb [Duoneb] 3 ml IH Q6HR 06/15/16 [History] Insulin Glargine,Hum.rec.anlog [Lantus Solostar] 40 unit SQ HS #1 06/17/16 [Rx] Fluticasone Propionate Nasal [Flonase] 2 spr NS DAILY 01/09/17 [History] Albuterol Neb [Proventil Neb] 2.5 mg IH [id number] PRN inh 01/16/17 [Rx] OxyCODONE Immed Rel [Roxicodone 5 MG] 5 mg PO Q6HR PRN #14 tab 01/16/17 [Rx] diazePAM [Valium] 5 mg PO TID PRN #20 01/16/17 [Rx] Furosemide [Lasix] 20 mg PO BID #28 tab 03/20/17 [Rx] Bisacodyl [Dulcolax] 10 mg RC DAILY PRN #10 supp.rect 03/28/17 [Rx] Carvedilol [Coreg] 6.25 mg PO BID 03/28/17 [History] Docusate [Colace] 100 mg PO BID #60 capsule 03/28/17 [Rx] Polyethylene Glycol 3350 [MiraLAX Powder Bulk 17.9 Oz] 1 scoop PO DAILY #510 gm 03/28/17 [Rx] 3 Allergy/AdvReac Type Severity Reaction Status Date / Time acetaminophen [From Tylenol] Allergy Hives Verified 04/04/17 13:05 ibuprofen AdvReac Nausea Verified 04/04/17 13:05 NSAIDS (Non-Steroidal AdvReac Nausea Verified 04/04/17 13:05 Anti-Inflamma All Systems: A 10-system review of systems was performed and is negative for pertinent findings except as documented above in the HPI. Physical Examination Vital Signs: Vital Signs, Last 4 Hours Temp Pulse Resp BP Pulse Ox 04/06/17 08:25 96.5 F L 99 24 118/76 91 General appearance: no acute distress Eyes: nonicteric ENT: oropharynx dry Mallampati (class): 4 Neck: supple, no lymphadenopathy Effort: normal Inspection: other (Obese) Auscultation: bilateral: diminished breath sounds Percussion: bilateral: not dull Cardiovascular: regular rate and rhythm Gastrointestinal: absent bowel sounds, soft, tender Extremities: no cyanosis, edema normal mental status, non-focal exam depressed Results - Laboratory Findings CBC and BMP: 04/06/17 09:26 04/06/17 09:26 ABG ABG pH 7.33 pH Units (7.32-7.45) 04/06/17 04:03 ABG pCO2 59 mmHg (35-45) H 04/06/17 04:03 ABG pO2 66 mmHg (85-104) L 04/06/17 04:03 ABG O2 Saturation 91 % (95-98) L 04/06/17 04:03 Abnormal lab findings: Abnormal lab results WBC 23.4 K/mcL (4.3-11.1) H 04/06/17 09:26 RDW 14.7 % (11.5-14.5) H 04/06/17 09:26 MPV 9.1 fL (9.4-12.4) L 04/06/17 09:26 Band Neutrophils % 10.0 % (0-4) H 04/05/17 00:24 Neutrophils # 22.5 K/mcL (1.6-8.9) H 04/06/17 09:26 Lymphocytes # 0.4 K/mcL (0.6-4.6) L 04/06/17 09:26 Nucleated RBCs/100 WBC 0.1 /100 WBC (0) H 04/05/17 00:24 ABG pCO2 59 mmHg (35-45) H 04/06/17 04:03 ABG pO2 66 mmHg (85-104) L 04/06/17 04:03 ABG HCO3 31 mEq/L (21-27) H 04/06/17 04:03 ABG Total CO2 33 mEq/L (20-26) H 04/06/17 04:03 ABG O2 Saturation 91 % (95-98) L 04/06/17 04:03 BUN 56 mg/dL (7-20) H D 04/06/17 09:26 Creatinine 2.70 mg/dL (0.57-1.11) H 04/06/17 09:26 Est GFR ( Amer) 22 (> 60) L 04/06/17 09:26 Est GFR (Non-Af Amer) 18 (> 60) L 04/06/17 09:26 Glucose 295 mg/dL (70-99) H 04/06/17 09:26 POC Glucose 300 (58-89) H 04/06/17 05:35 Calculated Osmolality 310 (280-300) H 04/06/17 09:26 Magnesium 1.0 mg/dL (1.6-2.6) L 04/05/17 00:24 - Diagnostic Findings Chest x-ray: report reviewed, image reviewed - Clinical Findings Intake & Output: Intake & Output 04/05/17 04/06/17 04/06/17 23:59 07:59 15:59 Intake Total 1100 / 1100 Balance 1100 / 1100 Weight 133.311 kg Consult Discharge Plan - Plan Referrals: Dimitris Villaseñor, [employer] [Primary Care Provider] -
--- NOTE | 2017-04-06 11:49 | General Surgery Progress Note ---
Date of Encounter: 04/06/17 Time of Encounter: 11:29 Subjective Narrative: General Surgery - SBFT with follow up xrays reviewed with [facility]. The contrast has stopped progressing after reaching the mid distal jejunum. Mild interval progression of contrast into the distal jejunum with decompression of the right lower quadrant jejunal and ileal loops is described on the films completed this morning. Small bowel distention has not increased, however, notation of stool filled colon persists. This still appears to be a profound ileus versus small bowel obstruction. The colon has not emptied and is likely causing the small bowel to backup" Historical details provided by the patient's brother indicate that the patient is literally bedfast. Whenever she tries to get out of bed she falls. The brother must lift the patient for virtually every function. The patient is nonambulatory and does not get out of bed. There is a long standing history constipation. The patient is reported not to have moved her bowels in several weeks. A moderate loose liquid brown BM is described by Nursing, 04/05/2017. Dr. Fuentes has evaluated the patient from a pulmonary perspective. The patient has known tracheal malacia and atelectasis resulting from the patient prolonged immobility and bedrest. He does not feel the patient has pneumonia. Past medical history - bilateral breast cancer; diabetes mellitus; CVA; COPD; tobacco abuse, morbid obesity Physical exam - morbidly obese female, lying in bed with BiPAP in place. The patient voicing no complaints but providing little information about her status. Maximum temperature 99.7, pulse 105-107, respiration 19-20. Blood pressure 120/86. SPO2 on nasal cannula ranging from 2-3 L/m is 84-85% Lungs are notable for diminished breath sounds; exam is limited by the patient's body habitus Abdomen is obese, soft, without obvious tenderness. I did not elicit any masses but again the abdomen exam was limited by the bodies habitus. I did not elicit any pain, however, after completing the exam the patient indicated left groin pain with minimal movement in bed Bowel sounds were hypoactive and very difficult to hear. Laboratories: White count 23.4; it is noted that the patient is on steroids H&H 12.0 and 37.4, platelet count 276,000. Neutrophils are elevated at 22.5% ABGs show pH is 7.33, PCO2 of 59, PO2 of 66, bicarbonate 31; SPO2 91% Electrolytes are normal, BUN has increased to 56 and creatinine has increased to 2.70; estimated GFR has decreased from 23 to 18 Impression: Profound constipation due to a combination of inactivity, "pneumonia " and narcotics. The patient is receiving morphine and oxycodone during this hospital stay. Findings are most consistent with a ileus worsened by this combination however a small bowel obstruction cannot be entirely excluded. Recommendations: Clear liquids; repeated enemas and, if possible, diminished narcotic analgesia recommend correction of fluid status Plan - will allow clear liquids; the other recommendations to be implemented per Medical Services per their assessment of the patient Continue serial abdominal x-rays Objective Vital Signs - Last 8 Hours Temp Pulse Resp BP Pulse Ox 04/06/17 08:25 96.5 F L 99 24 118/76 91 04/06/17 07:38 10 91 04/06/17 03:54 14 92 Intake and Output 04/05/17 04/06/17 04/06/17 23:59 07:59 15:59 Intake Total 1100 / 1100 Balance 1100 / 1100 Intake: IV Fluids 1100 / 1100 0.9 % Sodium Chloride 1,000 ML 1000 / 1000 @ 150 mls/hr IVC .[id number] [facility] Rx #:[id number] Zosyn 3.375 GM In 0.9 % Sodium 100 / 100 Chloride (Mini-Bag +) 100 ML @ 25 mls/hr IVPB Q12H [facility] Rx#: [id number] Other: # Voids 2 1 Weight 133.311 kg Blood Glucose* 286 300 Patient Weight 04/06/17 23:59 Weight 133.311 kg - Labs 04/06/17 09:26 04/06/17 09:26 Diabetes panel 04/06/17 Range/Units 09:26 Sodium 137 (136-145) mEq/L Potassium 4.4 (3.5-4.5) mEq/L Chloride 98 (98-109) mEq/L Carbon Dioxide 25 (19-29) mEq/L BUN 56 H D (7-20) mg/dL Creatinine 2.70 H (0.57-1.11) mg/dL Glucose 295 H (70-99) mg/dL Calcium 9.4 (8.6-10.8) mg/dL Calcium panel 04/06/17 Range/Units 09:26 Calcium 9.4 (8.6-10.8) mg/dL Pituitary panel 04/06/17 Range/Units 09:26 Sodium 137 (136-145) mEq/L Potassium 4.4 (3.5-4.5) mEq/L Chloride 98 (98-109) mEq/L Carbon Dioxide 25 (19-29) mEq/L BUN 56 H D (7-20) mg/dL Creatinine 2.70 H (0.57-1.11) mg/dL Glucose 295 H (70-99) mg/dL Calcium 9.4 (8.6-10.8) mg/dL Adrenal panel 04/06/17 Range/Units 09:26 Sodium 137 (136-145) mEq/L Potassium 4.4 (3.5-4.5) mEq/L Chloride 98 (98-109) mEq/L Carbon Dioxide 25 (19-29) mEq/L BUN 56 H D (7-20) mg/dL Creatinine 2.70 H (0.57-1.11) mg/dL Glucose 295 H (70-99) mg/dL Calcium 9.4 (8.6-10.8) mg/dL Consult Discharge Plan - Plan Referrals: Dimitris Villaseñor, JARRETT [Primary Care Provider] -
--- NOTE | 2017-04-06 15:11 | Internal Med Progress Note ---
Date of Encounter: 04/06/17 Time of Encounter: 11:00 - Assessment and plan (1) HCAP (healthcare-associated pneumonia) Current Visit: No Status: Acute Assessment and plan: -Pulmonology was consulted due to respiratory distress and does not believe that patient has pneumonia so antibiotics have been discontinued. (2) COPD exacerbation Current Visit: Yes Status: Acute Assessment and plan: -Pulmonology does not believe that patient is going through a COPD exacerbation so we will discontinue IV Solu-Medrol. (3) Abdominal pain Current Visit: No Status: Acute Assessment and plan: -Patient with suspected small bowel obstruction and small bowel follow-through has been completed but waiting on results. -General surgery is following and appreciate recommendations. Qualifiers: Abdominal location: generalized Qualified Code(s): R10.84 - Generalized abdominal pain (4) DVT prophylaxis Current Visit: No Status: Acute Assessment and plan: Subcutaneous heparin - Subjective Interval history: Patient with respiratory distress this morning and required BiPAP due to desaturation. - Constitutional Vitals: Temp Pulse Resp BP Pulse Ox 97.4 F L 89 18 126/84 93 04/06/17 12:08 04/06/17 12:08 04/06/17 12:08 04/06/17 12:08 04/06/17 12:08 General appearance: Present: A&O X 3, morbidly obese, no acute distress - Respiratory Respiratory exam: Present: CTAB. Absent: accessory muscle use, rales, rhonchi, wheezes - Cardiovascular Cardiovascular exam: Present: RRR, +S1, +S2. Absent: diastolic murmur, gallop, rubs, systolic murmur Internal Medicine: Result - Labs CBC & Chem 7: 04/06/17 09:26 04/06/17 09:26 Labs: Short CBC 04/06/17 Range/Units 09:26 WBC 23.4 H (4.3-11.1) K/mcL Hgb 12.0 (11.5-15.4) g/dL Hct 37.4 (35.3-44.9) % Plt Count 276 (140-400) K/mcL Neutrophils # 22.5 H (1.6-8.9) K/mcL BMP 04/06/17 09:26 Sodium 137 Potassium 4.4 Chloride 98 Carbon Dioxide 25 BUN 56 H D Creatinine 2.70 H Glucose 295 H Calcium 9.4 - ABG Interpretation ABG results: ABG ABG pH 7.33 pH Units (7.32-7.45) 04/06/17 04:03 ABG pCO2 59 mmHg (35-45) H 04/06/17 04:03 ABG pO2 66 mmHg (85-104) L 04/06/17 04:03 ABG O2 Saturation 91 % (95-98) L 04/06/17 04:03 - Impressions Impressions Small Bowel X-Ray 04/05/17 07:00 IMPRESSION: The contrast column arrested progression in the mid to distal jejunum in the region of the right lower quadrant and did not pass into the cecum at 21 hours suggesting bowel obstruction. D/ / 04/06/2017 09:12:37 Rajeev Back MD / Leatha Maki Interpreting Provider: Rajeev Back MD Consult Discharge Plan - Plan Referrals: Dimitris Villaseñor, CANCER GENETIC COUNSELOR [Primary Care Provider] -
[2017-04-06] MEDS: Budesonide/Formoterol 160/4.5 MDI IH SCH (20:18)
[2017-04-07] MEDS: Insulin LISPRO 300 UNITS/3 ML VIAL SQ SCH ×4 (01:04→17:26)
[2017-04-07] MEDS: Ipratropium/Albuterol Neb 3 ML IH SCH ×6 (03:43→23:26)
[2017-04-07] MEDS: Piperacillin/Tazobactam 3.375 GM in 0.9 % Sodium Chloride Mini Bag 100 ML IVPB SCH ×2 (04:56→12:44)
[2017-04-07] MEDS: *HR* Heparin 5,000 UNIT/ML VIAL SQ SCH ×2 (05:58→17:05)
[2017-04-07] MEDS: diazePAM 5 MG TABLET PO PRN (05:59)
[2017-04-07] MEDS: *HR* Morphine 2 MG/ML SYRINGE IVP PRN ×3 (05:59→17:27)
[2017-04-07] MEDS: Budesonide/Formoterol 160/4.5 MDI IH SCH ×2 (08:11→19:46)
--- NOTE | 2017-04-07 10:30 | Pulmonology Progress Note ---
Date of Encounter: 04/07/17 Time of Encounter: 07:40 Assessment and Plan (1) Acute and chronic respiratory failure ([id number]) Current Visit: Yes Status: Acute Please refer to my consultation recommendations from yesterday. One more time I explained to the patient that she needs to be more active and encouraged her to participate in activities and incentive spirometry otherwise her symptoms deteriorate. Continue noninvasive ventilation. Qualifiers: Respiratory failure complication: hypoxia and hypercapnia Qualified Code(s) : J96.21 - Acute and chronic respiratory failure with hypoxia; J96.22 - Acute and chronic respiratory failure with hypercapnia; J96.22 - Acute and chronic respiratory failure with hypercapnia; J96.22 - Acute and chronic respiratory failure with hypercapnia (2) Tracheomalacia, acquired Current Visit: Yes Status: Chronic As described from yesterday. Patient will need positive airway pressure to help. The patient is extremely important and intubated needs to be elevated. (3) Atelectasis of both lungs Current Visit: Yes Status: Acute (4) COPD (chronic obstructive pulmonary disease) Current Visit: No Status: Chronic Continue bronchodilators. Qualifiers: COPD type: emphysema Emphysema type: unspecified Qualified Code(s): J43.9 - Emphysema, unspecified (5) Tobacco use Current Visit: No Status: Chronic Subjective Principal diagnosis: Lung volume obstruction Interval history: Patient remain in the bed lying flat and on BiPAP. She denies any changes what she is asking for water. Objective PUL Vital signs: Last Vital Signs Temp 97.4 F L 04/07/17 07:09 Pulse 87 04/07/17 07:09 Resp 15 04/07/17 08:11 BP 117/67 04/07/17 07:09 Pulse Ox 88 04/07/17 09:20 General appearance: no acute distress Eyes: nonicteric ENT: oropharynx dry Mallampati (class): 4 Neck: supple, no lymphadenopathy Effort: normal Auscultation: bilateral: diminished breath sounds Cardiovascular: regular rate and rhythm Gastrointestinal: hypoactive bowel sounds, soft, non-tender Extremities: no cyanosis normal mental status, non-focal exam depressed Results - Laboratory Findings CBC and BMP: 04/06/17 09:26 04/06/17 09:26 ABG ABG pH 7.33 pH Units (7.32-7.45) 04/06/17 04:03 ABG pCO2 59 mmHg (35-45) H 04/06/17 04:03 ABG pO2 66 mmHg (85-104) L 04/06/17 04:03 ABG O2 Saturation 91 % (95-98) L 04/06/17 04:03 Abnormal lab findings: Abnormal lab results WBC 23.4 K/mcL (4.3-11.1) H 04/06/17 09:26 RDW 14.7 % (11.5-14.5) H 04/06/17 09:26 MPV 9.1 fL (9.4-12.4) L 04/06/17 09:26 Band Neutrophils % 10.0 % (0-4) H 04/05/17 00:24 Neutrophils # 22.5 K/mcL (1.6-8.9) H 04/06/17 09:26 Lymphocytes # 0.4 K/mcL (0.6-4.6) L 04/06/17 09:26 Nucleated RBCs/100 WBC 0.1 /100 WBC (0) H 04/05/17 00:24 ABG pCO2 59 mmHg (35-45) H 04/06/17 04:03 ABG pO2 66 mmHg (85-104) L 04/06/17 04:03 ABG HCO3 31 mEq/L (21-27) H 04/06/17 04:03 ABG Total CO2 33 mEq/L (20-26) H 04/06/17 04:03 ABG O2 Saturation 91 % (95-98) L 04/06/17 04:03 BUN 56 mg/dL (7-20) H D 04/06/17 09:26 Creatinine 2.70 mg/dL (0.57-1.11) H 04/06/17 09:26 Est GFR ( Amer) 22 (> 60) L 04/06/17 09:26 Est GFR (Non-Af Amer) 18 (> 60) L 04/06/17 09:26 Glucose 295 mg/dL (70-99) H 04/06/17 09:26 POC Glucose 247 (58-89) H 04/07/17 00:18 Calculated Osmolality 310 (280-300) H 04/06/17 09:26 Magnesium 1.0 mg/dL (1.6-2.6) L 04/05/17 00:24 - Clinical Findings Intake & Output: Intake & Output 04/06/17 04/07/17 04/07/17 23:59 07:59 15:59 Intake Total 100 / 100 100 / 100 240 / 240 Balance 100 / 100 100 / 100 240 / 240 Weight 132.404 kg Consult Discharge Plan - Plan Referrals: Dimitris Villaseñor, [employer] PL[employer] CONTROL ROOM OPERATOR [Primary Care Provider] -
[2017-04-07] MEDS: Nicotine 21 MG PATCH.TD24 TD SCH (10:37)
[2017-04-07 12:17] LABS: Basophils % 0.1 %; Hematocrit 40.2 % (35.3-44.9); Hemoglobin 12.6 g/dL (11.5-15.4); Immature Granulocytes % 0.5 % (0-4); Lymphocytes # 0.5 K/mcL (0.6-4.6); Lymphocytes % 2.2 %; Mean Corpuscular HGB Conc 31.3 g/dL (31.6-35.5); Mean Corpuscular Hemoglobin 29.6 pg (28.0-33.3); Mean Corpuscular Volume 94.6 fL (83.0-100.0); Mean Platelet Volume 9.4 fL (9.4-12.4); Monocytes # 0.8 K/mcL (0.0-1.3); Monocytes % 3.9 %; Neutrophils # 19.5 K/mcL (1.6-8.9); Platelet Count 288 K/mcL (140-400); Red Blood Count 4.25 M/mcL (3.82-4.97); Red Cell Distribution Width 14.6 % (11.5-14.5); Segmented Neutrophils % 93.3 %
[2017-04-07 12:29] LABS: Calcium 10.1 mg/dL (8.6-10.8); Potassium 4.1 mEq/L (3.5-4.5)
--- NOTE | 2017-04-07 12:53 | General Surgery Progress Note ---
Date of Encounter: 04/07/17 Time of Encounter: 11:30 Subjective Narrative: General Surgery - patient describes single episode emesis last evening which she attibutes to medications given provided prior to the last imaging of the SBFT Abdominal x-rays this morning were personally reviewed and discussed with [facility] The oral contrast appears to be slowly advancing but has not reached the colon. No increased small bowel distention. The dictated report indicates a "known SBO", however, that is not the case. These findings are consistent with severe ileus related to almost total inactivity, continued administration narcotic analgesics and failure to clear the colon. CT shows significant stool within a redundant colon. On physical exam: Patient lying in bed; BiPAP had been removed by the patient to speak on the phone. Respirartory alarms active Patient remains afebrile, currently 96.6, pulse 91, respirations 17, blood pressure 116/71. SPO2 on 70% BiPAP 99% Lungs: Clear to auscultation no breath sounds were diminished most likely due to body habitus Abdomen: Soft without obvious tenderness a few active bowel sounds were audible. The exam was nontender despite the patient's complaints of abdominal pain for which she is requesting more pain medication No recorded BM since 04/05/17; last recorded BM prior to that 03/28/17 Laboratories: Leukocytosis slowly decreasing, 21.0; hemoglobin hematocrit stable at 12.6 and 40.2; platelet count 288,000 Neutrophilia also slowly diminishing, 19.5% Electrolytes notable for a chloride of 95, bicarbonate 31. BUN continues to rise, currently 73 (previously 56), creatinine 2.72, estimated GFR 18 Recommendations: maintain clear liquid diet - this was discussed with patient. She is unhappy with this recommendation. enemas as recommended in prior surgical note address worsening renal status. Wilber initiated D5/.45 at 50 mL / hour pending medical evaluation Objective Vital Signs - Last 8 Hours Temp Pulse Resp BP Pulse Ox 04/07/17 12:14 17 99 04/07/17 11:12 96.6 F L 91 16 116/71 99 04/07/17 09:20 88 04/07/17 08:11 15 95 04/07/17 07:09 97.4 F L 87 16 117/67 94 Intake and Output 11/25/17 11/26/17 11/26/17 23:59 07:59 15:59 Intake Total 100 / 100 100 / 100 240 / 240 Balance 100 / 100 100 / 100 240 / 240 Intake: IV Fluids 100 / 100 100 / 100 Zosyn 3.375 GM In 0.9 % Sodium 100 / 100 100 / 100 Chloride (Mini-Bag +) 100 ML @ 25 mls/hr IVPB Q8H [facility] Rx#: [id number] Oral 240 / 240 Other: Meal Breakfast Percent of Meal Consumed 70% # Voids 1 Weight 132.404 kg Blood Glucose* 269 243 289 Patient Weight 04/07/17 23:59 Weight 132.404 kg - Labs 04/07/17 10:14 04/07/17 10:14 Diabetes panel 04/07/17 Range/Units 10:14 Sodium 138 (136-145) mEq/L Potassium 4.1 (3.5-4.5) mEq/L Chloride 95 L (98-109) mEq/L Carbon Dioxide 31 H (19-29) mEq/L BUN 73 H D (7-20) mg/dL Creatinine 2.72 H (0.57-1.11) mg/dL Glucose 238 H (70-99) mg/dL Calcium 10.1 (8.6-10.8) mg/dL Calcium panel 04/07/17 Range/Units 10:14 Calcium 10.1 (8.6-10.8) mg/dL Pituitary panel 04/07/17 Range/Units 10:14 Sodium 138 (136-145) mEq/L Potassium 4.1 (3.5-4.5) mEq/L Chloride 95 L (98-109) mEq/L Carbon Dioxide 31 H (19-29) mEq/L BUN 73 H D (7-20) mg/dL Creatinine 2.72 H (0.57-1.11) mg/dL Glucose 238 H (70-99) mg/dL Calcium 10.1 (8.6-10.8) mg/dL Adrenal panel 04/07/17 Range/Units 10:14 Sodium 138 (136-145) mEq/L Potassium 4.1 (3.5-4.5) mEq/L Chloride 95 L (98-109) mEq/L Carbon Dioxide 31 H (19-29) mEq/L BUN 73 H D (7-20) mg/dL Creatinine 2.72 H (0.57-1.11) mg/dL Glucose 238 H (70-99) mg/dL Calcium 10.1 (8.6-10.8) mg/dL Consult Discharge Plan - Plan Referrals: Dimitris Villaseñor CNP [Primary Care Provider] -
[2017-04-07] MEDS ORDERED: D5% in 0.45% NACL 1,000 ML IVC SCH (13:00)
[2017-04-07] MEDS ORDERED: Insulin LISPRO 300 UNITS/3 ML VIAL SQ SCH ×4 (13:14→21:00)
[2017-04-07] MEDS ORDERED: 0.9 % Sodium Chloride 1,000 ML IVC SCH (13:30)
--- NOTE | 2017-04-07 16:02 | Internal Med Progress Note ---
Date of Encounter: 04/07/17 Time of Encounter: 11:00 - Assessment and plan (1) Acute on chronic respiratory failure Current Visit: No Status: Resolved Assessment and plan: -Patient continues to desaturate on high flow oxygen and requires continuous BiPAP. -Pulmonology to reevaluate patient. Qualifiers: Respiratory failure complication: hypoxia Qualified Code(s): J96.21 - Acute and chronic respiratory failure with hypoxia (2) Abdominal pain Current Visit: No Status: Acute Assessment and plan: -Abdominal study showed persistent dilated loops of small bowel correlating to either small bowel obstruction or marked ileus. Enteric contrast is noted within the small bowel which has progressed but has still not reached the colon when compared to 04/05/2017 small bowel series. -General surgery is following with recommendations for enema and to restart clear liquids in addition to decreasing pain medications. Qualifiers: Abdominal location: generalized Qualified Code(s): R10.84 - Generalized abdominal pain (3) HCAP (healthcare-associated pneumonia) Current Visit: No Status: Acute Assessment and plan: -Pulmonology was consulted due to respiratory distress and does not believe that patient has pneumonia so antibiotics have been discontinued. (4) COPD exacerbation Current Visit: Yes Status: Acute Assessment and plan: -Pulmonology does not believe that patient is going through a COPD exacerbation so we will discontinue IV Solu-Medrol. (5) Leucocytosis Current Visit: No Status: Acute Assessment and plan: -Chest x-ray showed no acute consolidation or effusion and no abdominal abscess noted on CT/pelvis imaging; urinalysis pending. -Will continue to monitor. Qualifiers: Leukocytosis type: unspecified Qualified Code(s): D72.829 - Elevated white blood cell count, unspecified (6) Acute kidney injury superimposed on chronic kidney disease Current Visit: Yes Status: Acute Assessment and plan: -Patient with acute on chronic kidney disease (stage III) with creatinine 2.72 and GFR of 18. -Will continue IV fluids and monitor. (7) DVT prophylaxis Current Visit: No Status: Acute Assessment and plan: Subcutaneous heparin - Subjective Interval history: Patient continues to have respiratory distress requiring continuous BiPAP to avoid oxygen desaturation. - Constitutional Vitals: Temp Pulse Resp BP Pulse Ox 98.5 F 90 13 118/67 100 04/07/17 15:04 04/07/17 15:04 04/07/17 15:18 04/07/17 15:04 04/07/17 15:18 General appearance: Present: A&O X 3, morbidly obese, no acute distress - Respiratory Respiratory exam: Present: decreased breath sounds - Cardiovascular Cardiovascular exam: Present: RRR, +S1, +S2. Absent: diastolic murmur, gallop, rubs, systolic murmur Internal Medicine: Result - Labs CBC & Chem 7: 04/07/17 10:14 04/07/17 10:14 Labs: Short CBC 04/07/17 Range/Units 10:14 WBC 21.0 H (4.3-11.1) K/mcL Hgb 12.6 (11.5-15.4) g/dL Hct 40.2 (35.3-44.9) % Plt Count 288 (140-400) K/mcL Neutrophils # 19.5 H (1.6-8.9) K/mcL BMP 04/07/17 10:14 Sodium 138 Potassium 4.1 Chloride 95 L Carbon Dioxide 31 H BUN 73 H D Creatinine 2.72 H Glucose 238 H Calcium 10.1 - ABG Interpretation ABG results: ABG ABG pH 7.33 pH Units (7.32-7.45) 04/06/17 04:03 ABG pCO2 59 mmHg (35-45) H 04/06/17 04:03 ABG pO2 66 mmHg (85-104) L 04/06/17 04:03 ABG O2 Saturation 91 % (95-98) L 04/06/17 04:03 - Impressions Impressions Abdomen X-Ray 04/07/17 00:01 IMPRESSION: Persistent dilated loops of small bowel correlating to either small bowel obstruction or marked ileus. Enteric contrast is noted within the small bowel which has progressed but has still not reached the colon when compared to 04/05/2017 small bowel series. D/ / 04/07/2017 13:07:29 Gretchen Hernández MD / ben Interpreting Provider: Gretchen Hernández MD Consult Discharge Plan - Plan Referrals: Dimitris Villaseñor, EXTERNAL GRINDER [Primary Care Provider] -
[2017-04-08] MEDS: Piperacillin/Tazobactam 3.375 GM in 0.9 % Sodium Chloride Mini Bag 100 ML IVPB SCH ×4 (00:30→21:31)
[2017-04-08] MEDS: Insulin LISPRO 300 UNITS/3 ML VIAL SQ SCH ×5 (00:37→21:16)
[2017-04-08] MEDS ORDERED: *HR* OxyCODONE Immed Rel 5 MG TABLET PO ONE (01:55)
[2017-04-08] MEDS: Ondansetron ODT 4 MG TAB.RAPDIS SL PRN (02:53)
[2017-04-08] MEDS: Ipratropium/Albuterol Neb 3 ML IH SCH ×6 (03:25→23:59)
[2017-04-08] MEDS: *HR* Heparin 5,000 UNIT/ML VIAL SQ SCH ×2 (06:59→17:20)
[2017-04-08] MEDS: Budesonide/Formoterol 160/4.5 MDI IH SCH ×2 (07:39→19:33)
[2017-04-08] MEDS: Nicotine 21 MG PATCH.TD24 TD SCH (08:50)
[2017-04-08] MEDS ORDERED: Furosemide 40 MG/4 ML VIAL IVP ONE (09:49)
[2017-04-08 10:06] LABS: Basophils % 0.1 %; Eosinophils # 0.1 K/mcL (0.0-0.6); Eosinophils % 0.3 %; Immature Granulocytes % 0.7 % (0-4); Lymphocytes # 0.4 K/mcL (0.6-4.6); Lymphocytes % 2.5 %; Mean Corpuscular HGB Conc 31.6 g/dL (31.6-35.5); Mean Corpuscular Hemoglobin 29.6 pg (28.0-33.3); Mean Corpuscular Volume 93.8 fL (83.0-100.0); Mean Platelet Volume 9.1 fL (9.4-12.4); Monocytes # 0.9 K/mcL (0.0-1.3); Monocytes % 5.8 %; Neutrophils # 14.7 K/mcL (1.6-8.9); Platelet Count 231 K/mcL (140-400); Red Blood Count 4.05 M/mcL (3.82-4.97); Red Cell Distribution Width 14.6 % (11.5-14.5); Segmented Neutrophils % 90.6 %
[2017-04-08 10:13] LABS: Bilirubin,Urine Negative (Negative); Blood,Urine Negative (Negative); Clarity,Urine Clear (Clear); Color,Urine Yellow (Yellow); Glucose,Urine (UA) Normal (Normal); Ketones,Urine Negative (Negative); Leukocyte Esterase,Urine Negative (Negative); Nitrite,Urine Negative (Negative); PH,Urine 5.5 pH Units (5.0-8.0); Protein,Urine Negative (Neg-Trace); Specific Gravity,Urine 1.028 (1.010-1.025); Urobilinogen,Urine Normal (Normal)
[2017-04-08 10:17] LABS: Calcium 9.9 mg/dL (8.6-10.8); Potassium 3.6 mEq/L (3.5-4.5)
[2017-04-08 10:42] LABS: ABG Base Excess 7 mEq/L (-2 to 3); ABG HCO3 35 mEq/L (21-27); ABG Oxygen Saturation 89 % (95-98); ABG PCO2 61 mmHg (35-45); ABG PH 7.37 pH Units (7.32-7.45); ABG PO2 60 mmHg (85-104); ABG TCO2 37 mEq/L (20-26)
[2017-04-08] MEDS: Ondansetron 4 MG/2 ML VIAL IVP PRN (12:20)
--- NOTE | 2017-04-08 12:50 | General Surgery Progress Note ---
Date of Encounter: 04/08/17 Time of Encounter: 12:41 Subjective Narrative: General Surgery - recurrent N/V thru the night. With N/V, patient unable to wear Bi PAP. Resultant hypoxia. Patient deemed not stable to have abdominal x-rays completed this AM. The patient 's body habitus precludes portable imaging Despite the nausea and vomiting the patient has remained afebrile, currently 97.5, pulse 75, respiratory rate 20, blood pressure 120/77 On high flow nonrebreathing mask (oxygen at 15 L/m) SPO2 90-95% One BM recorded for calendar day 04/07/17. Laboratories: Leukocytosis continues to improve, 16.3; hemoglobin stable at 12.0 , hematocrit 38.0. Platelet count 231,000. Neutrophilia also continues to improve, 14.7 (previously 19.5) Electrolytes show a sodium of 137, potassium 3.6, BUN of 66, creatinine 2.94 (BUN improved from 73, creatinine has increased from 2.72) eGFR continues to deteriorate; currently 16. Impression worsening medical status. Patient with no prior history of abdominal or pelvic surgery he had radiographs today show either a profound ileus versus small bowel obstruction. The patient is an extremely poor candidate for surgery as a transabdominal exploration would likely result in the patient requiring long-term ventilator support. Recommendation: Transfer to a more acute care floor (ICU). Abdominal x-rays when the patient has stabilized. Consider TPN Objective Vital Signs - Last 8 Hours Temp Pulse Resp BP Pulse Ox 04/08/17 11:17 20 90 04/08/17 07:39 20 95 04/08/17 07:00 97.5 F L 75 15 120/77 96 Intake and Output 04/07/17 04/08/17 04/08/17 23:59 07:59 15:59 Intake Total 100 / 100 Output Total 400 / 400 550 / 550 Balance 100 / 100 -400 / -400 -550 / -550 Intake: IV Fluids 100 / 100 Zosyn 3.375 GM In 0.9 % Sodium 100 / 100 Chloride (Mini-Bag +) 100 ML @ 25 mls/hr IVPB Q8H [facility] Rx#: [id number] Output: Urine 400 / 400 Urethral (Heard) 400 / 400 Emesis 400 / 400 150 / 150 Other: # Voids 1 Weight 132.41 kg Blood Glucose* 362 195 218 Patient Weight 04/08/17 23:59 Weight 132.41 kg - Labs 04/08/17 10:02 04/08/17 10:02 Diabetes panel 04/08/17 Range/Units 10:02 Sodium 137 (136-145) mEq/L Potassium 3.6 (3.5-4.5) mEq/L Chloride 91 L (98-109) mEq/L Carbon Dioxide 31 H (19-29) mEq/L BUN 66 H (7-20) mg/dL Creatinine 2.94 H (0.57-1.11) mg/dL Glucose 224 H (70-99) mg/dL Calcium 9.9 (8.6-10.8) mg/dL Calcium panel 04/08/17 Range/Units 10:02 Calcium 9.9 (8.6-10.8) mg/dL Pituitary panel 04/08/17 Range/Units 10:02 Sodium 137 (136-145) mEq/L Potassium 3.6 (3.5-4.5) mEq/L Chloride 91 L (98-109) mEq/L Carbon Dioxide 31 H (19-29) mEq/L BUN 66 H (7-20) mg/dL Creatinine 2.94 H (0.57-1.11) mg/dL Glucose 224 H (70-99) mg/dL Calcium 9.9 (8.6-10.8) mg/dL Adrenal panel 04/08/17 Range/Units 10:02 Sodium 137 (136-145) mEq/L Potassium 3.6 (3.5-4.5) mEq/L Chloride 91 L (98-109) mEq/L Carbon Dioxide 31 H (19-29) mEq/L BUN 66 H (7-20) mg/dL Creatinine 2.94 H (0.57-1.11) mg/dL Glucose 224 H (70-99) mg/dL Calcium 9.9 (8.6-10.8) mg/dL Consult Discharge Plan - Plan Referrals: Dimitris Villaseñor, JARRETT [Primary Care Provider] -
--- NOTE | 2017-04-08 16:53 | Internal Med Progress Note ---
Date of Encounter: 04/08/17 Time of Encounter: 12:00 - Assessment and plan (1) Acute on chronic respiratory failure Current Visit: No Status: Resolved Assessment and plan: -Patient continues to desaturate on high flow oxygen and requires continuous flow oxygenation -Pulmonology to reevaluate patient. -She will be transferred to stepdown unit for her acuity of care. Qualifiers: Respiratory failure complication: hypoxia Qualified Code(s): J96.21 - Acute and chronic respiratory failure with hypoxia (2) Abdominal pain Current Visit: No Status: Acute Assessment and plan: -Abdominal study showed persistent dilated loops of small bowel correlating to either small bowel obstruction or marked ileus. Enteric contrast is noted within the small bowel which has progressed but has still not reached the colon when compared to 04/05/2017 small bowel series. -Patient now with nausea and vomiting with continued abdominal pain after her diet was advanced to clears. -A NG-tube was ordered for placement and the patient had a total 2.2 L of brownish output from NG tube per nursing. -General surgery is following and appreciate recommendations. Qualifiers: Abdominal location: generalized Qualified Code(s): R10.84 - Generalized abdominal pain (3) HCAP (healthcare-associated pneumonia) Current Visit: No Status: Acute Assessment and plan: -Pulmonology was consulted due to respiratory distress and does not believe that patient has pneumonia so antibiotics have been discontinued. (4) COPD exacerbation Current Visit: Yes Status: Acute Assessment and plan: -Pulmonology does not believe that patient is going through a COPD exacerbation so we will discontinue IV Solu-Medrol. (5) Leucocytosis Current Visit: No Status: Acute Assessment and plan: -Chest x-ray showed no acute consolidation or effusion and no abdominal abscess noted on CT/pelvis imaging; urinalysis pending. -Patient currently on IV Zosyn. -Will continue to monitor. Qualifiers: Leukocytosis type: unspecified Qualified Code(s): D72.829 - Elevated white blood cell count, unspecified (6) Acute kidney injury superimposed on chronic kidney disease Current Visit: Yes Status: Acute Assessment and plan: -Patient with acute on chronic kidney disease (stage III) with creatinine 2.94 and GFR of 16; creatinine was 2.16 on admission. -Nephrology will be consulted and appreciate recommendations. (7) DVT prophylaxis Current Visit: No Status: Acute Assessment and plan: Subcutaneous heparin - Subjective Interval history: Patient continues to have respiratory distress requiring continuous flow oxygenation. In addition patient now with nausea and vomiting with continued abdominal pain after advancing diet to clears. Patient also with worsening GUERRERO. - Constitutional Vitals: Temp Pulse Resp BP Pulse Ox 98.3 F 112 18 119/75 90 04/08/17 14:52 04/08/17 14:52 04/08/17 15:14 04/08/17 14:52 04/08/17 15:14 General appearance: Present: A&O X 3, morbidly obese, no acute distress - Respiratory Respiratory exam: Present: decreased breath sounds, respiratory distress - Cardiovascular Cardiovascular exam: Present: RRR, +S1, +S2. Absent: diastolic murmur, gallop, rubs, systolic murmur - GI/Abdominal GI/Abdominal exam: Present: distended, hypoactive bowel sounds, soft, tenderness Internal Medicine: Result - Labs CBC & Chem 7: 04/08/17 10:02 04/08/17 10:02 Labs: Short CBC 04/08/17 Range/Units 10:02 WBC 16.3 H (4.3-11.1) K/mcL Hgb 12.0 (11.5-15.4) g/dL Hct 38.0 (35.3-44.9) % Plt Count 231 (140-400) K/mcL Neutrophils # 14.7 H (1.6-8.9) K/mcL BMP 04/08/17 10:02 Sodium 137 Potassium 3.6 Chloride 91 L Carbon Dioxide 31 H BUN 66 H Creatinine 2.94 H Glucose 224 H Calcium 9.9 Urine 04/08/17 Range/Units 10:08 Urine Color Yellow (Yellow) Urine Clarity Clear (Clear) Urine pH 5.5 (5.0-8.0) pH Units Ur Specific [place] 1.028 H (1.010-1.025) Urine Protein Negative (Neg-Trace) mg/dL Urine Glucose (UA) Normal (Normal) mg/dL - ABG Interpretation ABG results: ABG ABG pH 7.37 pH Units (7.32-7.45) 04/08/17 10:39 ABG pCO2 61 mmHg (35-45) H 04/08/17 10:39 ABG pO2 60 mmHg (85-104) L 04/08/17 10:39 ABG O2 Saturation 89 % (95-98) L 04/08/17 10:39 - Impressions Impressions Abdomen X-Ray 04/07/17 00:01 IMPRESSION: Persistent dilated loops of small bowel correlating to either small bowel obstruction or marked ileus. Enteric contrast is noted within the small bowel which has progressed but has still not reached the colon when compared to 04/05/2017 small bowel series. D/ / 04/07/2017 13:07:29 Gretchen Hernández MD / ben Interpreting Provider: Gretchen Hernández MD Abdomen X-Ray 04/08/17 00:01 IMPRESSION: 1. Re- demonstration of dilated loops of small bowel containing enteric contrast again suggestive of small bowel obstruction versus ileus. No contrast is identified within the colon. D/ / Nir Lea MD / Nir Lea MD Interpreting Provider: Nir Lea MD X-Ray 04/08/17 13:50 IMPRESSION: Nasogastric tube tip overlies the gastric body. D/ /08/2017 15:54:41 Rony Sumner MD / eddie Interpreting Provider: Rony Sumner MD Consult Discharge Plan - Plan Referrals: Dimitris Villaseñor, FELTING MACHINE OPERATOR [Primary Care Provider] -
--- NOTE | 2017-04-08 18:14 | Pulmonology Progress Note ---
Date of Encounter: 04/08/17 Time of Encounter: 10:00 Assessment and Plan (1) Acute and chronic respiratory failure ([id number]) Current Visit: Yes Status: Acute Patient has both acute on chronic hypoxic and hyoercarbic espiratory failure due to COPD and some component of hypoventilation ,patient didnt tolerate BIPAP overnight due to Vomitting due to small bowel obstruction , patient oxygenating in 90's with High flow nasal cannula patient is completely alert and oriented following commands , hemodynamically stable will get ABG if the blood gas is compensated will need Step down care . If the ABG shows worsening respiratory acidosis will transfer her to the ICU . If her nausea and vomitting is relieved after the nasogastric decompression will attempt BIPAP TONIGHT Qualifiers: Respiratory failure complication: hypoxia and hypercapnia Qualified Code(s) : J96.21 - Acute and chronic respiratory failure with hypoxia; J96.22 - Acute and chronic respiratory failure with hypercapnia; J96.22 - Acute and chronic respiratory failure with hypercapnia; J96.22 - Acute and chronic respiratory failure with hypercapnia (2) Tracheomalacia, acquired Current Visit: Yes Status: Chronic Encouraged to do incentive spirometry sitting upright in the chair took incentive spirometry made her to do 2-3 times (3) COPD (chronic obstructive pulmonary disease) Current Visit: Yes Status: Chronic To continue the current regimen of bronchodilators and antibiotics will hold of steroids this worsening hypoxia most likely due to V/Q mismatch secondary to bilateral atelectasis secondary to the abdominal process . Qualifiers: Qualified Code(s): J44.9 - Chronic obstructive pulmonary disease, unspecified Subjective Principal diagnosis: Small bowel obstruction Interval history: 61 year old female followed by pulmonary for acute on chronic hypoxic and hypercarbic respiratory failure. Patient says her symptoms are lot better. She is responding and following commands , patient didnt tolerate BIPAP overnight as she started to vomitted due to small bowel obstruction. Objective PUL Vital signs: Last Vital Signs Temp 98.3 F 04/08/17 14:52 Pulse 112 04/08/17 14:52 Resp 18 04/08/17 15:14 BP 119/75 04/08/17 14:52 Pulse Ox 90 04/08/17 15:14 Effort: mildly labored Auscultation: bilateral: diminished breath sounds, wheezes Gastrointestinal: hypoactive bowel sounds, soft, tender Results - Laboratory Findings CBC and BMP: 04/08/17 10:02 04/08/17 10:02 ABG ABG pH 7.37 pH Units (7.32-7.45) 04/08/17 10:39 ABG pCO2 61 mmHg (35-45) H 04/08/17 10:39 ABG pO2 60 mmHg (85-104) L 04/08/17 10:39 ABG O2 Saturation 89 % (95-98) L 04/08/17 10:39 Abnormal lab findings: Abnormal lab results WBC 16.3 K/mcL (4.3-11.1) H 04/08/17 10:02 RDW 14.6 % (11.5-14.5) H 04/08/17 10:02 MPV 9.1 fL (9.4-12.4) L 04/08/17 10:02 Band Neutrophils % 10.0 % (0-4) H 04/05/17 00:24 Neutrophils # 14.7 K/mcL (1.6-8.9) H 04/08/17 10:02 Lymphocytes # 0.4 K/mcL (0.6-4.6) L 04/08/17 10:02 Nucleated RBCs/100 WBC 0.1 /100 WBC (0) H 04/05/17 00:24 ABG pCO2 61 mmHg (35-45) H 04/08/17 10:39 ABG pO2 60 mmHg (85-104) L 04/08/17 10:39 ABG HCO3 35 mEq/L (21-27) H 04/08/17 10:39 ABG Total CO2 37 mEq/L (20-26) H 04/08/17 10:39 ABG O2 Saturation 89 % (95-98) L 04/08/17 10:39 ABG Base Excess 7 mEq/L (-2 to 3) H 04/08/17 10:39 Chloride 91 mEq/L (98-109) L 04/08/17 10:02 Carbon Dioxide 31 mEq/L (19-29) H 04/08/17 10:02 BUN 66 mg/dL (7-20) H 04/08/17 10:02 Creatinine 2.94 mg/dL (0.57-1.11) H 04/08/17 10:02 Est GFR ( Amer) 20 (> 60) L 04/08/17 10:02 Est GFR (Non-Af Amer) 16 (> 60) L 04/08/17 10:02 Glucose 224 mg/dL (70-99) H 04/08/17 10:02 POC Glucose 354 (58-89) H 04/08/17 00:36 Calculated Osmolality 310 (280-300) H 04/08/17 10:02 Magnesium 1.0 mg/dL (1.6-2.6) L 04/05/17 00:24 Ur Specific [place] 1.028 (1.010-1.025) H 04/08/17 10:08 - Clinical Findings Intake & Output: Intake & Output 04/08/17 04/08/17 04/08/17 07:59 15:59 23:59 Output Total 400 / 400 4950 / 4950 Balance -400 / -400 -4950 / -4950 Weight 132.41 kg Consult Discharge Plan - Plan Referrals: Dimitris Villaseñor, JAVA LEAD DEVELOPER [Primary Care Provider] -
[2017-04-09] MEDS: Ipratropium/Albuterol Neb 3 ML IH SCH ×6 (03:19→23:41)
[2017-04-09] MEDS: Piperacillin/Tazobactam 3.375 GM in 0.9 % Sodium Chloride Mini Bag 100 ML IVPB SCH (04:00)
[2017-04-09] MEDS: *HR* Heparin 5,000 UNIT/ML VIAL SQ SCH ×2 (06:01→18:20)
[2017-04-09] MEDS: Budesonide/Formoterol 160/4.5 MDI IH SCH ×2 (07:29→19:41)
--- NOTE | 2017-04-09 07:59 | Internal Med Progress Note ---
Date of Encounter: 04/09/17 Time of Encounter: 07:57 - Assessment and plan (1) Leucocytosis Current Visit: No Status: Acute Assessment and plan: due to pneumonia Qualifiers: Leukocytosis type: bandemia Qualified Code(s): D72.825 - Bandemia (2) Weakness Current Visit: No Status: Acute Assessment and plan: multifactorial due to pneumonia and respiratory failre (3) Diabetes mellitus Current Visit: No Status: Chronic Assessment and plan: chronic continue current sldiidng scale Qualifiers: Diabetes mellitus type: type 2 Diabetes mellitus complication status: with kidney complications Diabetes mellitus complication detail: with chronic kidney disease Diabetes mellitus long goods drier insulin use: with long goods drier use Chronic kidney disease stage: stage 3 (moderate) Qualified Code(s): E11.22 - Type 2 diabetes mellitus with diabetic chronic kidney disease; N18.3 - Chronic kidney disease, stage 3 (moderate); N18.3 - Chronic kidney disease, stage 3 ( moderate); Z79.4 - intermediate (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 of insulin; Z79.4 - intermediate ( 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 of insulin; Z79.4 - intermediate (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 of insulin; Z79.4 - intermission coordinator (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 of insulin (4) Hypertension Current Visit: No Status: Chronic Assessment and plan: well controlled Qualifiers: Hypertension type: essential hypertension Qualified Code(s): I10 - Essential (primary) hypertension (5) COPD (chronic obstructive pulmonary disease) Current Visit: No Status: Chronic Assessment and plan: severe copd with respiratory failure ouom following will transfer to [facility] Qualifiers: COPD type: emphysema Emphysema type: unspecified Qualified Code(s): J43.9 - Emphysema, unspecified (6) Tobacco use Current Visit: No Status: Chronic Assessment and plan: chronic (7) Acute kidney injury Current Visit: No Status: Acute Assessment and plan: worsening renal failure iv fluid started and nephrology consulted (8) Chronic respiratory failure with hypoxia and hypercapnia Current Visit: No Status: Chronic Assessment and plan: clinically not better pulmonary follllowing (9) HCAP (healthcare-associated pneumonia) Current Visit: No Status: Acute (10) Type 2 diabetes mellitus Current Visit: Yes Status: Acute Assessment and plan: patient on zosyn Qualifiers: Diabetes mellitus complication status: without complication Diabetes mellitus long goods drier insulin use: with nursing home use Qualified Code(s): E11.9 - Type 2 diabetes mellitus without complications; Z79.4 - intermediate (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 of insulin; Z79.4 - intermediate (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 of insulin; Z79.4 - intermediate ( 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 of insulin; Z79.4 - intermediate (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 of insulin - Subjective Interval history: Patient seen and examined still very sob and somnolent nurses concern that there was discussion about transfer to icu but no icu bed patient says she does not feel any - Constitutional Vitals: Temp Pulse Resp BP Pulse Ox 98.1 F 98 20 121/81 91 04/09/17 06:52 04/09/17 06:52 04/09/17 07:37 04/09/17 06:52 04/09/17 07:37 General appearance: Present: A&O X 3, morbidly obese, no acute distress - Eye Eye exam: Present: PERRL, conjuntiva pink, sclera anicteric Pupils: Present: PERRL - Respiratory Respiratory exam: Present: decreased breath sounds, rhonchi, wheezes - Cardiovascular Cardiovascular exam: Present: +S1, +S2 - GI/Abdominal GI/Abdominal exam: Present: diminished bowel sounds - Extremities Exam Extremities exam: Present: warm, radial pulses palpable and symmetrical. Absent : calf tenderness, cyanotic, pedal edema - Skin Skin exam: Present: dry Internal Medicine: Result - Labs CBC & Chem 7: 04/08/17 10:02 04/08/17 10:02 Labs: Short CBC 04/08/17 Range/Units 10:02 WBC 16.3 H (4.3-11.1) K/mcL Hgb 12.0 (11.5-15.4) g/dL Hct 38.0 (35.3-44.9) % Plt Count 231 (140-400) K/mcL Neutrophils # 14.7 H (1.6-8.9) K/mcL BMP 04/08/17 10:02 Sodium 137 Potassium 3.6 Chloride 91 L Carbon Dioxide 31 H BUN 66 H Creatinine 2.94 H Glucose 224 H Calcium 9.9 Urine 04/08/17 Range/Units 10:08 Urine Color Yellow (Yellow) Urine Clarity Clear (Clear) Urine pH 5.5 (5.0-8.0) pH Units Ur Specific [place] 1.028 H (1.010-1.025) Urine Protein Negative (Neg-Trace) mg/dL Urine Glucose (UA) Normal (Normal) mg/dL - ABG Interpretation ABG results: ABG ABG pH 7.37 pH Units (7.32-7.45) 04/08/17 10:39 ABG pCO2 61 mmHg (35-45) H 04/08/17 10:39 ABG pO2 60 mmHg (85-104) L 04/08/17 10:39 ABG O2 Saturation 89 % (95-98) L 04/08/17 10:39 - Impressions Impressions Abdomen X-Ray 04/07/17 00:01 IMPRESSION: Persistent dilated loops of small bowel correlating to either small bowel obstruction or marked ileus. Enteric contrast is noted within the small bowel which has progressed but has still not reached the colon when compared to 04/05/2017 small bowel series. D/ / 04/07/2017 13:07:29 Gretchen Hernández MD / ben Interpreting Provider: Gretchen Hernández MD Abdomen X-Ray 04/08/17 00:01 IMPRESSION: 1. Re- demonstration of dilated loops of small bowel containing enteric contrast again suggestive of small bowel obstruction versus ileus. No contrast is identified within the colon. D/ / Nir Lea MD / Nir Lea MD Interpreting Provider: Nir Lea MD X-Ray 04/08/17 13:50 IMPRESSION: Nasogastric tube tip overlies the gastric body. D/ /08/2017 15:54:41 Rony Sumner MD / [email or web address] Interpreting Provider: Rony Sumner MD Consult Discharge Plan - Plan Referrals: Dimitris Villaseñor CNP [Primary Care Provider] -
[2017-04-09] MEDS: *HR* Morphine 2 MG/ML SYRINGE IVP PRN ×3 (08:38→20:55)
[2017-04-09] MEDS: Insulin LISPRO 300 UNITS/3 ML VIAL SQ SCH ×4 (08:39→21:42)
[2017-04-09] MEDS: 0.9 % Sodium Chloride 1,000 ML IVC SCH ×2 (08:39→21:41)
[2017-04-09] MEDS: Nicotine 21 MG PATCH.TD24 TD SCH (08:40)
[2017-04-09 11:09] LABS: ABG Base Excess 10 mEq/L (-2 to 3); ABG HCO3 37 mEq/L (21-27); ABG Oxygen Saturation 85 % (95-98); ABG PCO2 62 mmHg (35-45); ABG PH 7.39 pH Units (7.32-7.45); ABG PO2 53 mmHg (85-104); ABG TCO2 39 mEq/L (20-26)
[2017-04-09] MEDS: Piperacillin/Tazobactam 3.375 GM/200 ML BAG IVPB SCH ×2 (11:42→21:49)
[2017-04-09] MEDS: Ondansetron 4 MG/2 ML VIAL IVP PRN (11:42)
--- NOTE | 2017-04-09 12:02 | Nephrology Consult Note ---
Date of Encounter: 04/09/17 Time of Encounter: 11:49 Assessment and Plan (1) Acute kidney injury Current Visit: No Status: Acute Scr 2.94, GFR 16 yesterday; no BMP today Agree with IV fluids Continue strict I/Os GUERRERO workup to include: urine sodium, urine creatinine, urine eosinophils, CPK, renal ultrasound, serum uric acid, protien/creatine ratio Also need BMP today Avoid nephrotoxins if possible (2) Type 2 diabetes mellitus Current Visit: Yes Status: Acute per primary team Qualifiers: Diabetes mellitus complication status: without complication Diabetes mellitus intermediate insulin use: with intermediate use Qualified Code(s): E11.9 - Type 2 diabetes mellitus without complications; Z79.4 - terminal supervisor (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 of insulin; Z79.4 - terminal supervisor (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 of insulin; Z79.4 - halfway ( 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 of insulin; Z79.4 - terminal supervisor (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 of insulin (3) Abdominal pain Current Visit: No Status: Acute per surgical team/primary team Qualifiers: Abdominal location: generalized Qualified Code(s): R10.84 - Generalized abdominal pain (4) Morbid obesity with BMI of 45.0-49.9, adult Current Visit: No Status: Chronic per primary team History of Present Illness - Reason for Consult Consult date: 04/09/17 - Chief Complaint COPD exacerbation, GUERRERO, small bowel obstruction - History of Present Illness Ms. Yang is a 61 year old female with a PMH of type 2 diabetes, CVA, COPD, tobacco abuse, morbid obesity, CAD, chronic hypoxic respiratory failure who was sent from [facility] due to small bowel obstruction. She presented there with abdominal pain, nausea and vomiting. On admission patient's Scr was 2.16 and GFR 23. Patient denies any personal or family history of kidney disease. She is on Gabapentin, Lasix, ASA 325mg, Metformin, and Cozaar at home. Review of past labs show ptient is a poorly controlled diabetic. Kidney function continues to worsen but no labs available for today. Past Med Surg Social Fam HX - Past Medical History Medical history: arthritis, asthma, COPD, coronary artery disease, CVA, diabetes , GERD, hyperlipidemia, hypertension, thyroid disease, TIA Psychiatric history: anxiety, depression - Past Surgical History Surgical History: breast surgery, orthopedic, other, other - Social History Smoking Status: Current every day smoker Packs per day: 1 Smokeless Tobacco Status: No Alcohol use: none Drug use: none - Family History Mother Living Status: Hx Family Cardiac Disorders: Yes Hx Family Respiratory Disorders: Yes (emphysema) Hx Family Cancer: Yes (uterine cancer) Father Living Status: Hx Family Cardiac Disorders: Yes Medications and Allergies Folic Acid 1 mg PO DAILY 05/23/15 [History] Levothyroxine [Synthroid] 25 mcg PO DAILY 05/23/15 [History] Losartan [Cozaar] 25 mg PO DAILY 05/23/15 [History] metFORMIN [Glucophage] 1,000 mg PO BID 05/23/15 [History] Gabapentin [Neurontin] 300 mg PO TID 10/25/15 [History] Montelukast [Singulair] 10 mg PO DAILY 10/25/15 [History] Oxygen 2.5 l .ROUTE AD 10/25/15 [History] hydrOXYzine HCl [Hydroxyzine HCl] 25 mg PO TID PRN 10/25/15 [History] FLUoxetine HCl [Fluoxetine HCl] 40 mg PO DAILY 05/21/16 [History] Aspirin [Ecotrin] 325 mg PO DAILY 06/15/16 [History] Ipratropium/Albuterol Neb [Duoneb] 3 ml IH Q6HR 06/15/16 [History] Insulin Glargine,Hum.rec.anlog [Lantus Solostar] 40 unit SQ HS #1 06/17/16 [Rx] Fluticasone Propionate Nasal [Flonase] 2 spr NS DAILY 01/09/17 [History] Albuterol Neb [Proventil Neb] 2.5 mg IH [id number] PRN inh 01/16/17 [Rx] OxyCODONE Immed Rel [Roxicodone 5 MG] 5 mg PO Q6HR PRN #14 tab 01/16/17 [Rx] diazePAM [Valium] 5 mg PO TID PRN #20 01/16/17 [Rx] Furosemide [Lasix] 20 mg PO BID #28 tab 03/20/17 [Rx] Bisacodyl [Dulcolax] 10 mg RC DAILY PRN #10 supp.rect 03/28/17 [Rx] Carvedilol [Coreg] 6.25 mg PO BID 03/28/17 [History] Docusate [Colace] 100 mg PO BID #60 capsule 03/28/17 [Rx] Polyethylene Glycol 3350 [MiraLAX Powder Bulk 17.9 Oz] 1 scoop PO DAILY #510 gm 03/28/17 [Rx] 3 Allergy/AdvReac Type Severity Reaction Status Date / Time acetaminophen [From Tylenol] Allergy Hives Verified 04/04/17 13:05 ibuprofen AdvReac Nausea Verified 04/04/17 13:05 NSAIDS (Non-Steroidal AdvReac Nausea Verified 04/04/17 13:05 Anti-Inflamma Review of Systems All Systems: reviewed and no additional remarkable complaints except as stated Constitutional: malaise Cardiovascular: dyspnea, no chest pain Respiratory: dyspnea Gastrointestinal: abdominal pain, nausea, vomiting Neurological: no behavioral changes Exam - Vital Signs Vital signs: Initial Vital Signs Temp Pulse Resp BP Pulse Ox 99.7 F H 103 19 110/66 92 04/04/17 18:58 04/04/17 18:58 04/04/17 18:58 04/04/17 18:58 04/04/17 18:58 Vital Signs - Last 8 Hours Temp Pulse Pulse Pulse Pulse Resp BP 04/09/17 09:50 97 97 97 04/09/17 09:49 04/09/17 08:50 04/09/17 07:37 20 04/09/17 07:30 16 04/09/17 06:52 98.1 F 98 14 121/81 04/09/17 03:51 98.0 F 95 15 136/81 BP BP BP Pulse Ox 04/09/17 09:50 147/86 133/88 133/74 04/09/17 09:49 147/86 133/88 133/74 04/09/17 08:50 94 04/09/17 07:37 91 04/09/17 07:30 94 04/09/17 06:52 96 04/09/17 03:51 97 Intake and Output 04/08/17 04/09/17 04/09/17 23:59 07:59 15:59 Intake Total 100 / 100 100 / 100 100 / 100 Output Total 1030 / 1030 475 / 475 Balance -930 / -930 -375 / -375 100 / 100 Intake: IV Fluids 100 / 100 100 / 100 100 / 100 Zosyn 3.375 GM In 0.9 % Sodium 100 / 100 100 / 100 100 / 100 Chloride (Mini-Bag +) 100 ML @ 25 mls/hr IVPB Q8H [facility] Rx#: [id number] Output: Gastric Tube Lavage Amount 580 / 580 475 / 475 Left Nare 580 / 580 475 / 475 Catheter 450 / 450 Other: Weight 129.138 kg Blood Glucose* 249 371 Patient Weight 04/09/17 23:59 Weight 129.138 kg - General Appearance General appearance: obese EENT: ATNC, hearing intact, vision intact Neck: supple Respiratory: clear Cardiology: no edema, normal S1, normal S2 Gastrointestinal: no guarding, obese Integumentary: warm and dry Neurologic: alert and oriented x3 Psychiatric: mood/affect appropriate, cooperative Results - Lab Results 04/08/17 10:02 04/08/17 10:02 Most recent lab results ABG pH 7.39 pH Units (7.32-7.45) 04/09/17 11:06 ABG pCO2 62 mmHg (35-45) H 04/09/17 11:06 ABG pO2 53 mmHg (85-104) L 04/09/17 11:06 ABG HCO3 37 mEq/L (21-27) H 04/09/17 11:06 ABG O2 Saturation 85 % (95-98) L 04/09/17 11:06 Calcium 9.9 mg/dL (8.6-10.8) 04/08/17 10:02 Magnesium 1.0 mg/dL (1.6-2.6) L 04/05/17 00:24 Consult Discharge Plan - Plan Referrals: Dimitris Villaseñor, CROWN AND BRIDGE TECHNICIAN [Primary Care Provider] -
--- NOTE | 2017-04-09 18:07 | Pulmonology Progress Note ---
Date of Encounter: 04/09/17 Time of Encounter: 09:30 Assessment and Plan (1) Acute and chronic respiratory failure ([id number]) Current Visit: Yes Status: Acute Patient has both acute on chronic hypoxic and hypercarbic respiratory failure due to COPD and some component of hypoventilation acute decompensation of her hypoxic respiratory failure is due to V/Q mismatch caused most likely due to basliar atelectasis due to splinting of diaphragm because of her distended abdomen in the setting of small bowel obstruction , patient was sitting up tolerating BIPAP her Oxyegenation much improved coming down on her FIO2 , gas exchange which was checked today was stable , will continue BIPAP as patient is tolerating well. Qualifiers: Respiratory failure complication: hypoxia and hypercapnia Qualified Code(s) : J96.21 - Acute and chronic respiratory failure with hypoxia; J96.22 - Acute and chronic respiratory failure with hypercapnia; J96.22 - Acute and chronic respiratory failure with hypercapnia; J96.22 - Acute and chronic respiratory failure with hypercapnia (2) Tracheomalacia, acquired Current Visit: Yes Status: Chronic Encouraged to sit her up on BIPAP if off BIPAP encouraged incentive Spirometry. (3) COPD (chronic obstructive pulmonary disease) Current Visit: Yes Status: Chronic To continue the current regimen of bronchodilators and antibiotics will hold of steroids this worsening hypoxia most likely due to V/Q mismatch secondary to bilateral atelectasis secondary to the abdominal process . Qualifiers: Qualified Code(s): J44.9 - Chronic obstructive pulmonary disease, unspecified Subjective Principal diagnosis: Small bowel obstruction Interval history: 61 year old female followed by pulmonary for acute on chronic hypoxic and hypercarbic respiratory failure. Patient says her symptoms are lot better. She is responding and following commands , patient tolerated her BIPAP overnight patient didnt have any nausea and vomitting . Objective PUL Vital signs: Last Vital Signs Temp 99.3 F 04/09/17 17:25 Pulse 99 04/09/17 17:25 Resp 91 04/09/17 17:25 BP 130/72 04/09/17 17:25 Pulse Ox 97 04/09/17 16:19 Auscultation: bilateral: diminished breath sounds Results - Laboratory Findings CBC and BMP: 04/08/17 10:02 04/08/17 10:02 ABG ABG pH 7.39 pH Units (7.32-7.45) 04/09/17 11:06 ABG pCO2 62 mmHg (35-45) H 04/09/17 11:06 ABG pO2 53 mmHg (85-104) L 04/09/17 11:06 ABG O2 Saturation 85 % (95-98) L 04/09/17 11:06 Abnormal lab findings: Abnormal lab results WBC 16.3 K/mcL (4.3-11.1) H 04/08/17 10:02 RDW 14.6 % (11.5-14.5) H 04/08/17 10:02 MPV 9.1 fL (9.4-12.4) L 04/08/17 10:02 Band Neutrophils % 10.0 % (0-4) H 04/05/17 00:24 Neutrophils # 14.7 K/mcL (1.6-8.9) H 04/08/17 10:02 Lymphocytes # 0.4 K/mcL (0.6-4.6) L 04/08/17 10:02 Nucleated RBCs/100 WBC 0.1 /100 WBC (0) H 04/05/17 00:24 ABG pCO2 62 mmHg (35-45) H 04/09/17 11:06 ABG pO2 53 mmHg (85-104) L 04/09/17 11:06 ABG HCO3 37 mEq/L (21-27) H 04/09/17 11:06 ABG Total CO2 39 mEq/L (20-26) H 04/09/17 11:06 ABG O2 Saturation 85 % (95-98) L 04/09/17 11:06 ABG Base Excess 10 mEq/L (-2 to 3) H 04/09/17 11:06 Chloride 91 mEq/L (98-109) L 04/08/17 10:02 Carbon Dioxide 31 mEq/L (19-29) H 04/08/17 10:02 BUN 66 mg/dL (7-20) H 04/08/17 10:02 Creatinine 2.94 mg/dL (0.57-1.11) H 04/08/17 10:02 Est GFR ( Amer) 20 (> 60) L 04/08/17 10:02 Est GFR (Non-Af Amer) 16 (> 60) L 04/08/17 10:02 Glucose 224 mg/dL (70-99) H 04/08/17 10:02 POC Glucose 249 (58-89) H 04/08/17 20:16 Calculated Osmolality 310 (280-300) H 04/08/17 10:02 Magnesium 1.0 mg/dL (1.6-2.6) L 04/05/17 00:24 Ur Specific [place] 1.028 (1.010-1.025) H 04/08/17 10:08 - Clinical Findings Intake & Output: Intake & Output 04/09/17 04/09/17 04/09/17 07:59 15:59 23:59 Intake Total 100 / 100 100 / 100 Output Total 475 / 475 600 / 600 Balance -375 / -375 100 / 100 -600 / -600 Weight 129.138 kg 103.419 kg Consult Discharge Plan - Plan Referrals: Dimitris Villaseñor, SKATING RINK MANAGER [Primary Care Provider] -
[2017-04-09 18:57] LABS: Albumin/Globulin Ratio 0.4 (1.1-2.2); Bilirubin,Total 0.3 mg/dL (0.2-1.2); Calcium 9.6 mg/dL (8.6-10.8); Globulin 4.6 g/dL (2.4-3.5); Potassium 4.1 mEq/L (3.5-4.5); Total Protein 6.5 g/dL (6.0-8.3); Uric Acid 18.8 mg/dL (2.6-6.0)
[2017-04-09 18:59] LABS: Albumin 1.9 g/dL (3.5-5.0)
[2017-04-10] MEDS: Piperacillin/Tazobactam 3.375 GM/200 ML BAG IVPB SCH ×3 (03:24→21:00)
[2017-04-10] MEDS: Ipratropium/Albuterol Neb 3 ML IH SCH ×6 (03:41→23:31)
[2017-04-10] MEDS: *HR* Heparin 5,000 UNIT/ML VIAL SQ SCH ×2 (05:04→16:45)
[2017-04-10] MEDS: *HR* Morphine 2 MG/ML SYRINGE IVP PRN ×3 (05:04→21:18)
--- NOTE | 2017-04-10 07:55 | Internal Med Progress Note ---
Date of Encounter: 04/10/17 Time of Encounter: 07:53 - Assessment and plan (1) Leucocytosis Current Visit: No Status: Acute Assessment and plan: will check labs in am Qualifiers: Leukocytosis type: bandemia Qualified Code(s): D72.825 - Bandemia (2) Weakness Current Visit: No Status: Acute Assessment and plan: still generalized weakness (3) Diabetes mellitus Current Visit: No Status: Chronic Assessment and plan: chronic and continus sliding scale Qualifiers: Diabetes mellitus type: type 2 Diabetes mellitus complication status: with kidney complications Diabetes mellitus complication detail: with chronic kidney disease Diabetes mellitus terminal manager insulin use: with terminal manager use Chronic kidney disease stage: stage 3 (moderate) Qualified Code(s): E11.22 - Type 2 diabetes mellitus with diabetic chronic kidney disease; N18.3 - Chronic kidney disease, stage 3 (moderate); N18.3 - Chronic kidney disease, stage 3 ( moderate); Z79.4 - senior care (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 of insulin; Z79.4 - exterminator helper termite ( 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 of insulin; Z79.4 - exterminator helper termite (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 of insulin; Z79.4 - exterminator helper termite (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 of insulin (4) Hypertension Current Visit: No Status: Chronic Assessment and plan: well controlled Qualifiers: Hypertension type: essential hypertension Qualified Code(s): I10 - Essential (primary) hypertension (5) COPD (chronic obstructive pulmonary disease) Current Visit: No Status: Chronic Assessment and plan: with worsening hypoxemia Qualifiers: COPD type: emphysema Emphysema type: unspecified Qualified Code(s): J43.9 - Emphysema, unspecified (6) Tobacco use Current Visit: No Status: Chronic (7) Acute kidney injury Current Visit: No Status: Acute Assessment and plan: patient seen by nephrology yesterday will check labs today (8) Chronic respiratory failure with hypoxia and hypercapnia Current Visit: No Status: Chronic Assessment and plan: worsening hypoxemia and continued respiratory failure pulmonary following (9) HCAP (healthcare-associated pneumonia) Current Visit: No Status: Acute Assessment and plan: continue antibiotics (10) Type 2 diabetes mellitus Current Visit: Yes Status: Acute Qualifiers: Diabetes mellitus complication status: without complication Diabetes mellitus terminal manager insulin use: with terminal manager use Qualified Code(s): E11.9 - Type 2 diabetes mellitus without complications; Z79.4 - senior care (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 of insulin; Z79.4 - senior care (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 of insulin; Z79.4 - senior care ( 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 of insulin; Z79.4 - senior care (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 of insulin - Subjective Interval history: Patient seen and examined still very sob and somnolent nurses concern that there was discussion about transfer to icu but no icu bed patient says she does not feel any better patient transfred to 2N due to progressive hypoxemia and respiratory failure. today says she feels same and wants to drinks some water of which she is npo by surgery - Constitutional Vitals: Temp Pulse Resp BP Pulse Ox 97.6 F 86 13 114/61 94 04/10/17 03:34 04/10/17 03:35 04/10/17 03:43 04/10/17 03:34 04/10/17 03:43 General appearance: Present: A&O X 3, morbidly obese, no acute distress - Head Head exam: Present: atraumatic, normocephalic - Eye Eye exam: Present: PERRL, conjuntiva pink, sclera anicteric Pupils: Present: PERRL - Respiratory Respiratory exam: Present: rhonchi, wheezes - Cardiovascular Cardiovascular exam: Present: RRR, +S1, +S2 - GI/Abdominal GI/Abdominal exam: Present: diminished bowel sounds, distended Internal Medicine: Result - Labs CBC & Chem 7: 04/08/17 10:02 04/09/17 18:30 Labs: BMP 04/09/17 18:30 Sodium 139 Potassium 4.1 Chloride 92 L Carbon Dioxide 34 H BUN 91 H D Creatinine 3.98 H Glucose 213 H Calcium 9.6 Liver Function 04/09/17 Range/Units 18:30 Total Bilirubin 0.3 (0.2-1.2) mg/dL AST 13 (5-34) Units/L ALT 7 (0-55) Units/L Alkaline Phosphatase 73 (38-126) Units/L Albumin 1.9 L (3.5-5.0) g/dL - ABG Interpretation ABG results: ABG ABG pH 7.39 pH Units (7.32-7.45) 04/09/17 11:06 ABG pCO2 62 mmHg (35-45) H 04/09/17 11:06 ABG pO2 53 mmHg (85-104) L 04/09/17 11:06 ABG O2 Saturation 85 % (95-98) L 04/09/17 11:06 - Impressions Impressions Retroperitoneum Ultrasound 04/09/17 16:00 IMPRESSION: No evidence of hydronephrosis. D/ / 04/09/2017 17:24:44 Rony Sumner MD / justinay Interpreting Provider: Rony Sumner MD Consult Discharge Plan - Plan Referrals: Dimitris Villaseñor CNP [Primary Care Provider] -
[2017-04-10] MEDS: Insulin LISPRO 300 UNITS/3 ML VIAL SQ SCH ×4 (08:02→20:20)
[2017-04-10] MEDS: Nicotine 21 MG PATCH.TD24 TD SCH (08:02)
[2017-04-10] MEDS: Budesonide/Formoterol 160/4.5 MDI IH SCH ×2 (08:09→20:57)
[2017-04-10] MEDS ORDERED: D10% in Water 500 ML IVC PRN (09:09)
[2017-04-10 09:18] LABS: Phosphorous 4.4 mg/dL (2.3-4.7); Potassium 3.9 mEq/L (3.5-4.5)
[2017-04-10 09:44] LABS: Calcium 9.7 mg/dL (8.6-10.8)
[2017-04-10] MEDS ORDERED: Lidocaine -MPF 1% 5 ML AMPUL INFILT ONE (10:12)
--- NOTE | 2017-04-10 10:20 | Pulmonology Progress Note ---
<Lidia Cordova - Last Filed: 04/10/17 10:25> Date of Encounter: 04/10/17 Time of Encounter: 10:18 Assessment and Plan (1) Acute and chronic respiratory failure ([id number]) Current Visit: Yes Status: Acute atient has both acute on chronic hypoxic and hypercarbic respiratory failure due to COPD and some component of hypoventilation acute decompensation of her hypoxic respiratory failure is due to V/Q mismatch caused most likely due to basliar atelectasis due to splinting of diaphragm because of her distended abdomen in the setting of small bowel obstruction. Patient was on BiPAP overnight, appeared to tolerate well. She is currently on mask. Vitals appear stable. Contineu BiPAP as tolerated and supplemental oxygen as needed. Encourage pateint to sit up as much as possible. Qualifiers: Respiratory failure complication: hypoxia and hypercapnia Qualified Code(s) : J96.21 - Acute and chronic respiratory failure with hypoxia; J96.22 - Acute and chronic respiratory failure with hypercapnia; J96.22 - Acute and chronic respiratory failure with hypercapnia; J96.22 - Acute and chronic respiratory failure with hypercapnia (2) Tracheomalacia, acquired Current Visit: Yes Status: Chronic Encouraged to sit up as much as possible and reinforced importance of using incentive spirometry. (3) COPD (chronic obstructive pulmonary disease) Current Visit: Yes Status: Chronic To continue the current regimen of bronchodilators and antibiotics will hold of steroids this worsening hypoxia most likely due to V/Q mismatch secondary to bilateral atelectasis secondary to the abdominal process . Qualifiers: COPD type: unspecified COPD Qualified Code(s): J44.9 - Chronic obstructive pulmonary disease, unspecified Subjective Principal diagnosis: Small bowel obstruction Interval history: Patient trasnferred from [place] for concerns of small bowel obstruction. Has been NPO and evaluated by surgery. She was hypoxic and was placed on BiPAP overnight. This morning, she states that she did not like the BiPAP. She reports that it made her mouth dry and that it made her cough. She states she wants to go home and also that nutrition told her she could eat ice chips unless she felt nauseated. She has no other respiratory complaints today. Objective PUL Vital signs: Last Vital Signs Temp 98.5 F 04/10/17 07:49 Pulse 88 04/10/17 07:49 Resp 18 04/10/17 08:13 BP 114/61 04/10/17 07:49 Pulse Ox 94 04/10/17 08:13 General appearance: no acute distress Eyes: nonicteric ENT: oropharynx moist Neck: supple Effort: normal Auscultation: bilateral: diminished breath sounds Cardiovascular: regular rate and rhythm Gastrointestinal: hypoactive bowel sounds, soft Extremities: no cyanosis Results - Laboratory Findings CBC and BMP: 04/08/17 10:02 04/10/17 08:46 ABG ABG pH 7.39 pH Units (7.32-7.45) 04/09/17 11:06 ABG pCO2 62 mmHg (35-45) H 04/09/17 11:06 ABG pO2 53 mmHg (85-104) L 04/09/17 11:06 ABG O2 Saturation 85 % (95-98) L 04/09/17 11:06 Abnormal lab findings: Abnormal lab results WBC 16.3 K/mcL (4.3-11.1) H 04/08/17 10:02 RDW 14.6 % (11.5-14.5) H 04/08/17 10:02 MPV 9.1 fL (9.4-12.4) L 04/08/17 10:02 Band Neutrophils % 10.0 % (0-4) H 04/05/17 00:24 Neutrophils # 14.7 K/mcL (1.6-8.9) H 04/08/17 10:02 Lymphocytes # 0.4 K/mcL (0.6-4.6) L 04/08/17 10:02 Nucleated RBCs/100 WBC 0.1 /100 WBC (0) H 04/05/17 00:24 ABG pCO2 62 mmHg (35-45) H 04/09/17 11:06 ABG pO2 53 mmHg (85-104) L 04/09/17 11:06 ABG HCO3 37 mEq/L (21-27) H 04/09/17 11:06 ABG Total CO2 39 mEq/L (20-26) H 04/09/17 11:06 ABG O2 Saturation 85 % (95-98) L 04/09/17 11:06 ABG Base Excess 10 mEq/L (-2 to 3) H 04/09/17 11:06 Carbon Dioxide 30 mEq/L (19-29) H 04/10/17 08:46 BUN 92 mg/dL (7-20) H 04/10/17 08:46 Creatinine 3.55 mg/dL (0.57-1.11) H 04/10/17 08:46 Est GFR ( Amer) 16 (> 60) L 04/10/17 08:46 Est GFR (Non-Af Amer) 13 (> 60) L 04/10/17 08:46 Glucose 219 mg/dL (70-99) H 04/10/17 08:46 POC Glucose 200 (58-89) H 04/09/17 20:58 Calculated Osmolality 327 (280-300) H 04/10/17 08:46 Uric Acid 18.8 mg/dL (2.6-6.0) H 04/09/17 18:30 Magnesium 1.0 mg/dL (1.6-2.6) L 04/05/17 00:24 Creatine Kinase 349 Units/L (29-168) H 04/09/17 18:30 Albumin 1.9 g/dL (3.5-5.0) L 04/09/17 18:30 Globulin 4.6 g/dL (2.4-3.5) H 04/09/17 18:30 Albumin/Globulin Ratio 0.4 (1.1-2.2) L 04/09/17 18:30 Triglycerides 246 mg/dL (< 150) H 04/10/17 08:46 Ur Specific [place] 1.028 (1.010-1.025) H 04/08/17 10:08 - Clinical Findings Intake & Output: Intake & Output 04/09/17 04/10/17 04/10/17 23:59 07:59 15:59 Intake Total 1200 / 1200 200 / 200 Output Total 1150 / 1150 325 / 325 Balance 50 / 50 -125 / -125 Weight 103.419 kg Consult Discharge Plan - Plan Referrals: Dimitris Villaseñor CNP [Primary Care Provider] - (sent web request on 04-10-17 @ [id number]) <Vernell Arndt - Last Filed: 04/10/17 19:38> Date of Encounter: 04/10/17 Assessment and Plan (1) Acute and chronic respiratory failure ([id number]) Current Visit: Yes Status: Acute Qualifiers: Respiratory failure complication: hypoxia and hypercapnia Qualified Code(s) : J96.21 - Acute and chronic respiratory failure with hypoxia; J96.22 - Acute and chronic respiratory failure with hypercapnia; J96.22 - Acute and chronic respiratory failure with hypercapnia; J96.22 - Acute and chronic respiratory failure with hypercapnia (2) Tracheomalacia, acquired Current Visit: Yes Status: Chronic (3) COPD (chronic obstructive pulmonary disease) Current Visit: Yes Status: Chronic Qualifiers: COPD type: unspecified COPD Qualified Code(s): J44.9 - Chronic obstructive pulmonary disease, unspecified Objective PUL Vital signs: Last Vital Signs Temp 97.9 F 04/10/17 16:00 Pulse 91 04/10/17 16:00 Resp 15 04/10/17 16:00 BP 113/72 04/10/17 16:00 Pulse Ox 98 04/10/17 16:00 Results - Laboratory Findings CBC and BMP: 04/08/17 10:02 04/10/17 08:46 ABG ABG pH 7.39 pH Units (7.32-7.45) 04/09/17 11:06 ABG pCO2 62 mmHg (35-45) H 04/09/17 11:06 ABG pO2 53 mmHg (85-104) L 04/09/17 11:06 ABG O2 Saturation 85 % (95-98) L 04/09/17 11:06 Abnormal lab findings: Abnormal lab results WBC 16.3 K/mcL (4.3-11.1) H 04/08/17 10:02 RDW 14.6 % (11.5-14.5) H 04/08/17 10:02 MPV 9.1 fL (9.4-12.4) L 04/08/17 10:02 Band Neutrophils % 10.0 % (0-4) H 04/05/17 00:24 Neutrophils # 14.7 K/mcL (1.6-8.9) H 04/08/17 10:02 Lymphocytes # 0.4 K/mcL (0.6-4.6) L 04/08/17 10:02 Nucleated RBCs/100 WBC 0.1 /100 WBC (0) H 04/05/17 00:24 ABG pCO2 62 mmHg (35-45) H 04/09/17 11:06 ABG pO2 53 mmHg (85-104) L 04/09/17 11:06 ABG HCO3 37 mEq/L (21-27) H 04/09/17 11:06 ABG Total CO2 39 mEq/L (20-26) H 04/09/17 11:06 ABG O2 Saturation 85 % (95-98) L 04/09/17 11:06 ABG Base Excess 10 mEq/L (-2 to 3) H 04/09/17 11:06 Carbon Dioxide 30 mEq/L (19-29) H 04/10/17 08:46 BUN 92 mg/dL (7-20) H 04/10/17 08:46 Creatinine 3.55 mg/dL (0.57-1.11) H 04/10/17 08:46 Est GFR ( Amer) 16 (> 60) L 04/10/17 08:46 Est GFR (Non-Af Amer) 13 (> 60) L 04/10/17 08:46 Glucose 219 mg/dL (70-99) H 04/10/17 08:46 POC Glucose 185 (58-89) H 04/10/17 07:51 Calculated Osmolality 327 (280-300) H 04/10/17 08:46 Uric Acid 18.8 mg/dL (2.6-6.0) H 04/09/17 18:30 Creatine Kinase 349 Units/L (29-168) H 04/09/17 18:30 Albumin 1.9 g/dL (3.5-5.0) L 04/09/17 18:30 Globulin 4.6 g/dL (2.4-3.5) H 04/09/17 18:30 Albumin/Globulin Ratio 0.4 (1.1-2.2) L 04/09/17 18:30 Triglycerides 246 mg/dL (< 150) H 04/10/17 08:46 Ur Specific [place] 1.028 (1.010-1.025) H 04/08/17 10:08 - Clinical Findings Intake & Output: Intake & Output 04/10/17 04/10/17 04/10/17 07:59 15:59 23:59 Intake Total 200 / 200 200 / 200 Output Total 325 / 325 Balance -125 / -125 200 / 200 - Attending Attestation I saw the patient with the resident agree with History and Physical exam findings. Labs and Radiology were reviewed I agree with above assement and plan . Patient seem to be slowly improving , will put her back on BIPAP overnight . Small bowel obstruction is getting improved . GUERRERO slowly improving will continue to Monitor in 2N .
[2017-04-10] MEDS: 0.9 % Sodium Chloride 1,000 ML IVC SCH ×2 (11:58→20:21)
[2017-04-10 14:09] LABS: Magnesium 2.3 mg/dL (1.6-2.6)
[2017-04-10] MEDS ORDERED: Clinimix E 5%-15% SOLUTION 2,000 ML with MVI, adult with vitamin K 10 ML IVC SCH (17:00)
[2017-04-10] MEDS: Insulin DETEMIR 100 UNIT/ML X5UNITS SQ SCH (23:00)
[2017-04-11] MEDS: Insulin LISPRO 300 UNITS/3 ML VIAL SQ SCH ×6 (01:49→20:41)
[2017-04-11] MEDS: diazePAM 5 MG TABLET PO PRN (02:45)
[2017-04-11] MEDS: Ipratropium/Albuterol Neb 3 ML IH SCH ×6 (04:09→23:23)
[2017-04-11] MEDS: Piperacillin/Tazobactam 3.375 GM/200 ML BAG IVPB SCH ×3 (05:14→20:47)
[2017-04-11] MEDS: 0.9 % Sodium Chloride 1,000 ML IVC SCH ×3 (05:15→20:48)
[2017-04-11] MEDS: *HR* Heparin 5,000 UNIT/ML VIAL SQ SCH ×2 (05:26→17:02)
[2017-04-11] MEDS: Budesonide/Formoterol 160/4.5 MDI IH SCH ×2 (08:02→19:52)
[2017-04-11 08:43] LABS: Hematocrit 33.2 % (35.3-44.9); Mean Corpuscular Hemoglobin 29.4 pg (28.0-33.3); Mean Corpuscular Volume 94.9 fL (83.0-100.0); Platelet Count 174 K/mcL (140-400); Red Cell Distribution Width 14.6 % (11.5-14.5)
[2017-04-11 08:44] LABS: Hemoglobin 10.3 g/dL (11.5-15.4)
[2017-04-11] MEDS: Nicotine 21 MG PATCH.TD24 TD SCH (08:57)
[2017-04-11 09:00] LABS: Calcium 9.2 mg/dL (8.6-10.8); Phosphorous 2.8 mg/dL (2.3-4.7)
[2017-04-11 09:41] LABS: Protein/Creatinine Ratio,Urine 0.92 mg/mg (0-0.20)
--- NOTE | 2017-04-11 11:03 | Nephrology Progress Note ---
Date of Encounter: 04/11/17 Time of Encounter: 11:01 - Assessment and Plan (1) Acute kidney injury Current Visit: No Status: Acute Kidney function improving-Scr 2.20 and GFR 23 Continue strict I/Os UOP good at 1125ml Renal ultrasound normal (2) Type 2 diabetes mellitus Current Visit: Yes Status: Acute per primary team Qualifiers: Diabetes mellitus complication status: without complication Diabetes mellitus assistant terminal manager insulin use: with assistant terminal manager use Qualified Code(s): E11.9 - Type 2 diabetes mellitus without complications; Z79.4 - terminal clerk (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 of insulin; Z79.4 - terminal clerk (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 of insulin; Z79.4 - terminal clerk ( 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 of insulin; Z79.4 - terminal clerk (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 of insulin (3) Abdominal pain Current Visit: No Status: Acute per primary team Qualifiers: Abdominal location: generalized Qualified Code(s): R10.84 - Generalized abdominal pain (4) Morbid obesity with BMI of 45.0-49.9, adult Current Visit: No Status: Chronic Subjective Principal diagnosis: Small bowel obstruction Interval history: Patient seen and examined. Currently on bipap Objective - Vital Signs Vital signs: Vital Signs Temp Pulse Resp BP Pulse Ox 04/11/17 08:45 88 04/11/17 08:02 10 132/83 97 04/11/17 06:57 98.2 F 92 16 132/83 97 04/11/17 04:59 97.7 F 95 19 122/84 96 04/11/17 04:09 16 95 04/10/17 23:32 98.8 F 97 17 112/66 99 04/10/17 23:31 14 98 04/10/17 20:57 18 94 04/10/17 20:55 98.9 F 97 15 112/89 93 04/10/17 16:00 97.9 F 91 15 113/72 98 04/10/17 15:33 18 95 04/10/17 11:33 20 91 Intake and Output 04/10/17 04/11/17 04/11/17 23:59 07:59 15:59 Intake Total 1400 / 1400 1200 / 1200 Output Total 950 / 950 450 / 450 350 / 350 Balance 450 / 450 750 / 750 -350 / -350 Intake: IV Fluids 1400 / 1400 1200 / 1200 0.9 % Sodium Chloride 1,000 ML 1000 / 1000 1000 / 1000 @ 125 mls/hr IVC .Q8H [facility] Rx#: [id number] Zosyn Premix 3.375 GM/200 ML 3. 400 / 400 200 / 200 375 gm In 200 ml @ 50 mls/hr IVPB Q8H [facility] Rx#:[id number] Output: Catheter 950 / 950 450 / 450 350 / 350 Other: Blood Glucose* 258 304 - General Appearance General appearance: Present: obese EENT: Present: ATNC, hearing intact, vision intact Neck: Present: supple Respiratory: Present: course breath sounds Cardiology: Present: edema, normal S1, normal S2 Gastrointestinal: Present: no tenderness, no guarding Integumentary: Present: warm and dry Neurologic: Present: alert and oriented x3 Psychiatric: Present: mood/affect appropriate, cooperative - Lab 04/11/17 08:30 04/11/17 08:30 Most recent lab results ABG pH 7.39 pH Units (7.32-7.45) 04/09/17 11:06 ABG pCO2 62 mmHg (35-45) H 04/09/17 11:06 ABG pO2 53 mmHg (85-104) L 04/09/17 11:06 ABG HCO3 37 mEq/L (21-27) H 04/09/17 11:06 ABG O2 Saturation 85 % (95-98) L 04/09/17 11:06 Calcium 9.2 mg/dL (8.6-10.8) 04/11/17 08:30 Phosphorus 2.8 mg/dL (2.3-4.7) 04/11/17 08:30 Magnesium 2.0 mg/dL (1.6-2.6) 04/11/17 04:55 Urine Creatinine 64 mg/dL 04/11/17 08:00 Urine Sodium 26.0 mEq/L 04/11/17 08:00 Urine Total Protein 59 mg/dL (1-14) H 04/11/17 08:00 Consult Discharge Plan - Plan Referrals: Dimitris Villaseñor, ASSOCIATE CURATOR [Primary Care Provider] - (sent web request on 04-10-17 @ [phone])
[2017-04-11] MEDS: Insulin DETEMIR 100 UNIT/ML X5UNITS SQ SCH ×2 (11:27→20:48)
--- NOTE | 2017-04-11 11:54 | Pulmonology Progress Note ---
Date of Encounter: 04/11/17 Time of Encounter: 11:00 Assessment and Plan (1) Acute and chronic respiratory failure ([id number]) Current Visit: Yes Status: Acute Patient has both acute on chronic hypoxic and hypercarbic respiratory failure due to COPD and some component of hypoventilation acute decompensation of her hypoxic respiratory failure is due to V/Q mismatch caused most likely due to basliar atelectasis due to splinting of diaphragm because of her distended abdomen in the setting of small bowel obstruction /ileus , will continue BIPAP as patient is tolerating well her ileus is getting better , once her ileus getting better will do BIPAP qualification . Qualifiers: Respiratory failure complication: hypoxia and hypercapnia Qualified Code(s) : J96.21 - Acute and chronic respiratory failure with hypoxia; J96.22 - Acute and chronic respiratory failure with hypercapnia; J96.22 - Acute and chronic respiratory failure with hypercapnia; J96.22 - Acute and chronic respiratory failure with hypercapnia (2) Tracheomalacia, acquired Current Visit: Yes Status: Chronic Encouraged to sit her up on BIPAP if off BIPAP encouraged incentive Spirometry. Counseled her family who was with her to encourage sit and do more incentive spirometry . (3) COPD (chronic obstructive pulmonary disease) Current Visit: Yes Status: Chronic To continue the current regimen of bronchodilators and antibiotics will hold of steroids this worsening hypoxia most likely due to V/Q mismatch secondary to bilateral atelectasis secondary to the abdominal process . Qualifiers: COPD type: unspecified COPD Qualified Code(s): J44.9 - Chronic obstructive pulmonary disease, unspecified Subjective Principal diagnosis: Small bowel obstruction Interval history: 61 year old female followed by pulmonary for acute on chronic hypoxic and hypercarbic respiratory failure. Patient says her symptoms are lot better. She doesnt move around much lying the bed on BIPAP , patient has still has ileus GI was consulted , no nausea and vomiting on BIPAP . Objective PUL Vital signs: Last Vital Signs Temp 98.2 F 04/11/17 06:57 Pulse 87 04/11/17 11:35 Resp 13 04/11/17 11:16 BP 146/89 04/11/17 11:16 Pulse Ox 98 04/11/17 11:16 Auscultation: bilateral: diminished breath sounds Gastrointestinal: hypoactive bowel sounds Results - Laboratory Findings CBC and BMP: 04/11/17 08:30 04/11/17 08:30 ABG ABG pH 7.39 pH Units (7.32-7.45) 04/09/17 11:06 ABG pCO2 62 mmHg (35-45) H 04/09/17 11:06 ABG pO2 53 mmHg (85-104) L 04/09/17 11:06 ABG O2 Saturation 85 % (95-98) L 04/09/17 11:06 Abnormal lab findings: Abnormal lab results RBC 3.50 M/mcL (3.82-4.97) L 04/11/17 08:30 Hgb 10.3 g/dL (11.5-15.4) L D 04/11/17 08:30 Hct 33.2 % (35.3-44.9) L 04/11/17 08:30 MCHC 31.0 g/dL (31.6-35.5) L 04/11/17 08:30 RDW 14.6 % (11.5-14.5) H 04/11/17 08:30 MPV 9.0 fL (9.4-12.4) L 04/11/17 08:30 Band Neutrophils % 10.0 % (0-4) H 04/05/17 00:24 Neutrophils # 14.7 K/mcL (1.6-8.9) H 04/08/17 10:02 Lymphocytes # 0.4 K/mcL (0.6-4.6) L 04/08/17 10:02 Nucleated RBCs/100 WBC 0.1 /100 WBC (0) H 04/05/17 00:24 ABG pCO2 62 mmHg (35-45) H 04/09/17 11:06 ABG pO2 53 mmHg (85-104) L 04/09/17 11:06 ABG HCO3 37 mEq/L (21-27) H 04/09/17 11:06 ABG Total CO2 39 mEq/L (20-26) H 04/09/17 11:06 ABG O2 Saturation 85 % (95-98) L 04/09/17 11:06 ABG Base Excess 10 mEq/L (-2 to 3) H 04/09/17 11:06 Carbon Dioxide 30 mEq/L (19-29) H 04/11/17 08:30 BUN 84 mg/dL (7-20) H 04/11/17 08:30 Creatinine 2.20 mg/dL (0.57-1.11) H 04/11/17 08:30 Est GFR ( Amer) 28 (> 60) L 04/11/17 08:30 Est GFR (Non-Af Amer) 23 (> 60) L 04/11/17 08:30 BUN/Creatinine Ratio 38 (6-26) H 04/11/17 08:30 Glucose 296 mg/dL (70-99) H 04/11/17 08:30 POC Glucose 256 (58-89) H 04/11/17 11:22 Calculated Osmolality 328 (280-300) H 04/11/17 08:30 Uric Acid 18.8 mg/dL (2.6-6.0) H 04/09/17 18:30 Creatine Kinase 349 Units/L (29-168) H 04/09/17 18:30 Albumin 1.9 g/dL (3.5-5.0) L 04/09/17 18:30 Globulin 4.6 g/dL (2.4-3.5) H 04/09/17 18:30 Albumin/Globulin Ratio 0.4 (1.1-2.2) L 04/09/17 18:30 Prealbumin 9.0 mg/dL (16.0-38.0) L 04/11/17 04:55 Triglycerides 246 mg/dL (< 150) H 04/10/17 08:46 Ur Specific [place] 1.028 (1.010-1.025) H 04/08/17 10:08 Protein/Creatinin Ratio 0.92 mg/mg (0-0.20) H 04/11/17 08:00 Urine Total Protein 59 mg/dL (1-14) H 04/11/17 08:00 - Clinical Findings Intake & Output: Intake & Output 04/10/17 04/11/17 04/11/17 23:59 07:59 15:59 Intake Total 1400 / 1400 1200 / 1200 1000 / 1000 Output Total 950 / 950 450 / 450 430 / 430 Balance 450 / 450 750 / 750 570 / 570 Consult Discharge Plan - Plan Referrals: Dimitris Villaseñor CNP [Primary Care Provider] - (sent web request on 04-10-17 @ [phone])
--- NOTE | 2017-04-11 12:01 | Internal Med Progress Note ---
Date of Encounter: 04/11/17 Time of Encounter: 11:59 - Assessment and plan (1) Leucocytosis Current Visit: No Status: Acute Assessment and plan: ressolved Qualifiers: Leukocytosis type: bandemia Qualified Code(s): D72.825 - Bandemia (2) Weakness Current Visit: No Status: Acute Assessment and plan: still weak (3) Diabetes mellitus Current Visit: No Status: Chronic Assessment and plan: with hyperglycemia due to TPN increased levimir to 20 u bid Qualifiers: Diabetes mellitus type: type 2 Diabetes mellitus complication status: with kidney complications Diabetes mellitus complication detail: with chronic kidney disease Diabetes mellitus senior care insulin use: with terminal make up operator use Chronic kidney disease stage: stage 3 (moderate) Qualified Code(s): E11.22 - Type 2 diabetes mellitus with diabetic chronic kidney disease; N18.3 - Chronic kidney disease, stage 3 (moderate); N18.3 - Chronic kidney disease, stage 3 ( moderate); Z79.4 - prison (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 of insulin; Z79.4 - prison ( 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 of insulin; Z79.4 - prison (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 of insulin; Z79.4 - medical terminologist (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 of insulin (4) Hypertension Current Visit: No Status: Chronic Assessment and plan: well controlled Qualifiers: Hypertension type: essential hypertension Qualified Code(s): I10 - Essential (primary) hypertension (5) COPD (chronic obstructive pulmonary disease) Current Visit: No Status: Chronic Assessment and plan: pilmonary following Qualifiers: COPD type: emphysema Emphysema type: unspecified Qualified Code(s): J43.9 - Emphysema, unspecified (6) Tobacco use Current Visit: No Status: Chronic (7) Acute kidney injury Current Visit: No Status: Acute Assessment and plan: much improved (8) Chronic respiratory failure with hypoxia and hypercapnia Current Visit: No Status: Chronic Assessment and plan: clinically stable (9) HCAP (healthcare-associated pneumonia) Current Visit: No Status: Acute Assessment and plan: will continue zosyn (10) Type 2 diabetes mellitus Current Visit: Yes Status: Acute Assessment and plan: with hyperglycemia due to tpn incraesed coverage Qualifiers: Diabetes mellitus complication status: without complication Diabetes mellitus terminal make up operator insulin use: with terminal make up operator use Qualified Code(s): E11.9 - Type 2 diabetes mellitus without complications; Z79.4 - medical terminologist (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 of insulin; Z79.4 - medical terminologist (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 of insulin; Z79.4 - prison ( 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 of insulin; Z79.4 - prison (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 of insulin - Subjective Interval history: Patient seen and examined still very sob and somnolent nurses concern that there was discussion about transfer to icu but no icu bed patient says she does not feel any better patient transfred to 2N due to progressive hypoxemia and respiratory failure. today says she feels same and wants to drinks some water of which she is npo by surgery patient started on tpn and glucose rising no new issues patient family in room - Constitutional Vitals: Temp Pulse Resp BP Pulse Ox 98.2 F 87 13 146/89 98 04/11/17 06:57 04/11/17 11:35 04/11/17 11:16 04/11/17 11:16 04/11/17 11:16 General appearance: Present: A&O X 3, morbidly obese, no acute distress - Eye Eye exam: Present: PERRL, conjuntiva pink, sclera anicteric Pupils: Present: PERRL - Neck Neck exam general surgery: Present: supple, trachea midline. Absent: lymphadenopathy - Respiratory Respiratory exam: Present: prolonged expiratory phase, rhonchi - Cardiovascular Cardiovascular exam: Present: RRR, +S3 - GI/Abdominal GI/Abdominal exam: Present: distended, soft Internal Medicine: Result - Labs CBC & Chem 7: 04/11/17 08:30 04/11/17 08:30 Labs: Short CBC 04/11/17 Range/Units 08:30 WBC 9.5 (4.3-11.1) K/mcL Hgb 10.3 L D (11.5-15.4) g/dL Hct 33.2 L (35.3-44.9) % Plt Count 174 (140-400) K/mcL BMP 04/10/17 04/11/17 08:46 08:30 Sodium 141 141 Potassium 3.9 4.0 Chloride 98 102 Carbon Dioxide 30 H 30 H BUN 92 H 84 H Creatinine 3.55 H 2.20 H Glucose 219 H 296 H Calcium 9.7 9.2 - ABG Interpretation ABG results: ABG ABG pH 7.39 pH Units (7.32-7.45) 04/09/17 11:06 ABG pCO2 62 mmHg (35-45) H 04/09/17 11:06 ABG pO2 53 mmHg (85-104) L 04/09/17 11:06 ABG O2 Saturation 85 % (95-98) L 04/09/17 11:06 Consult Discharge Plan - Plan Referrals: Dimitris Villaseñor, PRODUCT MERCHANDISER [Primary Care Provider] - (sent web request on 04-10-17 @ 0942)
[2017-04-11] MEDS: *HR* Morphine 2 MG/ML SYRINGE IVP PRN ×3 (13:33→20:47)
--- NOTE | 2017-04-11 15:43 | Gastroenterology Consult Note ---
<Ethan Morris - Last Filed: 04/11/17 16:38> Date of Encounter: 04/11/17 Time of Encounter: 15:42 - Assessment and plan (1) Constipation Current Visit: Yes Status: Acute Assessment and plan: Patient CT abdomen/pelvis reviewed with radiologist. Patient has stool-filled colon. There is concern for constipation. Initially there was concern that patient had small bowel obstruction and ileus. She was seen by surgery and was not considered a surgical candidate. Consult was placed due to concern that ileus has not resolved and may require neostigmine. Plan: Will give patient Dulcolax today and tomorrow. If this does not move her bowels patient will be started on GoLYTELY 1000 mL every day. Qualifiers: Constipation type: drug induced constipation Qualified Code(s): K59.03 - Drug induced constipation - Time Spent With Patient Total time spent is greater than 50% in coordination of care (as documented) at patient's floor/unit and/or counseling patient: GI History of Present Illness - Data of Consult Patient: new to practice Consult date: 04/11/17 Requesting Physician: Shen Moreno - Consult Narrative Reason for consult: Ileus History of present illness: Ms. Yang is a 61 year old female who was transferred from [facility] due to findings of small bowel obstruction. Initial presenting symptoms or abdominal pain nausea and vomiting. Surgery was consulted and concluded that patient has constipation secondary to inactivity, opioid use. Patient's last bowel movement was April 05. She complains of abdominal cramping and distention. She also has a history of tracheomalacia and currently requiring BiPAP. Patient denies chest pain, nausea, vomiting today. She continues to have shortness of breath. She denies any pain in her extremities, swelling in her extremities. Past Med Surg Social Fam HX - Past Medical History Medical history: arthritis, asthma, COPD, coronary artery disease, CVA, diabetes , GERD, hyperlipidemia, hypertension, thyroid disease, TIA Psychiatric history: anxiety, depression - Past Surgical History Surgical History: breast surgery, orthopedic, other, other - Social History Smoking Status: Current every day smoker Packs per day: 1 Smokeless Tobacco Status: No Alcohol use: none Drug use: none - Family History Mother Living Status: Hx Family Cardiac Disorders: Yes Hx Family Respiratory Disorders: Yes (emphysema) Hx Family Cancer: Yes (uterine cancer) Father Living Status: Hx Family Cardiac Disorders: Yes Review of Systems: Constitutional: Denies fever, chills HEENT: Denies headache, vision changes, neck pain, sore throat, rhinorrhea Heart: Denies chest pain palpitations Lungs: Or shortness of breath and cough Abdomen: Ports abdominal cramping, distention. Denies nausea vomiting diarrhea. Back: Denies back pain Kidney: Denies dysuria, hematuria Skin: warm and dry Extremities: Denies swelling, pain Neuro: Denies numbness, and tingling - Constitutional Vitals: Temp Pulse Resp BP Pulse Ox 98.3 F 83 22 146/89 97 04/11/17 15:08 04/11/17 15:27 04/11/17 15:08 04/11/17 11:16 04/11/17 15:08 - Other Additional findings: General: Pleasant mild distress HEENT: Head atraumatic, normocephalic, EOMI, PERRLA, neck nontender to palpation , absent lymphadenopathy, Moist Mucous Membranes, Heart: Regular rate and rhythm with no murmur Lungs: Clear to auscultation bilaterally. On BiPAP Abdomen: Soft nontender, nondistended positive bowel sounds Skin: warm and dry Extremities: Absent pedal edema, Neuro: Alert and Oriented 3 Vascular: Pedal and radial pulses 2 out of 4 Results - Labs CBC & Chem 7: 04/11/17 08:30 04/11/17 08:30 Labs: Last Result Calcium 9.2 mg/dL (8.6-10.8) 04/11/17 08:30 Troponin I 0.02 ng/mL (0-0.03) 04/05/17 04:51 Triglycerides 246 mg/dL (< 150) H 04/10/17 08:46 Entire Visit Hgb 10.3 g/dL (11.5-15.4) L D 04/11/17 08:30 Hct 33.2 % (35.3-44.9) L 04/11/17 08:30 Total Bilirubin 0.3 mg/dL (0.2-1.2) 04/09/17 18:30 AST 13 Units/L (5-34) 04/09/17 18:30 ALT 7 Units/L (0-55) 04/09/17 18:30 - ABG ABG results: ABG ABG pH 7.39 pH Units (7.32-7.45) 04/09/17 11:06 ABG pCO2 62 mmHg (35-45) H 04/09/17 11:06 ABG pO2 53 mmHg (85-104) L 04/09/17 11:06 ABG O2 Saturation 85 % (95-98) L 04/09/17 11:06 Consult Discharge Plan - Plan Referrals: Dimitris Villaseñor, ENVIRONMENTAL COMPLIANCE OFFICER [Primary Care Provider] - (sent web request on 04-10-17 @ 0954) <Jamie Keene - Last Filed: 04/11/17 18:07> Date of Encounter: 04/11/17 - Time Spent With Patient Total time spent is greater than 50% in coordination of care (as documented) at patient's floor/unit and/or counseling patient: GI History of Present Illness - Data of Consult Requesting Physician: Shen Moreno - Consult Narrative History of present illness: Ms. Yang is a 61 year old female - Constitutional Vitals: Temp Pulse Resp BP Pulse Ox 98.3 F 83 18 146/89 93 04/11/17 15:08 04/11/17 15:27 04/11/17 16:17 04/11/17 11:16 04/11/17 16:17 Results - Labs CBC & Chem 7: 04/11/17 08:30 04/11/17 08:30 Labs: Last Result Calcium 9.2 mg/dL (8.6-10.8) 04/11/17 08:30 Troponin I 0.02 ng/mL (0-0.03) 04/05/17 04:51 Triglycerides 246 mg/dL (< 150) H 04/10/17 08:46 Entire Visit Hgb 10.3 g/dL (11.5-15.4) L D 04/11/17 08:30 Hct 33.2 % (35.3-44.9) L 04/11/17 08:30 Total Bilirubin 0.3 mg/dL (0.2-1.2) 04/09/17 18:30 AST 13 Units/L (5-34) 04/09/17 18:30 ALT 7 Units/L (0-55) 04/09/17 18:30 - ABG ABG results: ABG ABG pH 7.39 pH Units (7.32-7.45) 04/09/17 11:06 ABG pCO2 62 mmHg (35-45) H 04/09/17 11:06 ABG pO2 53 mmHg (85-104) L 04/09/17 11:06 ABG O2 Saturation 85 % (95-98) L 04/09/17 11:06 - Attending Attestation I examined this patient and my medical decision-making was reviewed with the Resident Physician. I agree with the documented findings, disposition and treatment plan as described except to the extent set forth below. Ct scan revealed no evidence of ileus patient just has retained stool. Abdomen is benign on examination. Recommendation: Treatment of constipation
[2017-04-11] MEDS ORDERED: Clinimix E 5%-15% SOLUTION 2,000 ML with MVI, adult with vitamin K 10 ML, Insulin Hum... IVC SCH (17:00)
[2017-04-12] MEDS: Insulin LISPRO 300 UNITS/3 ML VIAL SQ SCH ×7 (00:12→23:36)
[2017-04-12] MEDS: Piperacillin/Tazobactam 3.375 GM/200 ML BAG IVPB SCH ×3 (03:22→20:45)
[2017-04-12] MEDS: *HR* Morphine 2 MG/ML SYRINGE IVP PRN ×3 (03:41→18:37)
[2017-04-12] MEDS: Ipratropium/Albuterol Neb 3 ML IH SCH ×6 (04:10→23:46)
[2017-04-12 04:24] LABS: Calcium 9.5 mg/dL (8.6-10.8); Magnesium 2.1 mg/dL (1.6-2.6); Phosphorous 3.6 mg/dL (2.3-4.7); Potassium 3.6 mEq/L (3.5-4.5)
[2017-04-12] MEDS: *HR* Heparin 5,000 UNIT/ML VIAL SQ SCH ×2 (05:54→17:26)
[2017-04-12] MEDS: Budesonide/Formoterol 160/4.5 MDI IH SCH ×2 (07:50→19:55)
[2017-04-12] MEDS: Nicotine 21 MG PATCH.TD24 TD SCH (09:08)
[2017-04-12] MEDS: Insulin DETEMIR 100 UNIT/ML X5UNITS SQ SCH ×2 (09:09→20:45)
[2017-04-12] MEDS: 0.9 % Sodium Chloride 1,000 ML IVC SCH ×4 (10:27→22:59)
--- NOTE | 2017-04-12 10:47 | Nephrology Progress Note ---
Date of Encounter: 04/12/17 Time of Encounter: 09:35 - Assessment and Plan (1) Acute kidney injury superimposed on chronic kidney disease Current Visit: Yes Status: Acute Overall stable. No need for RESIDENT SURGEON. Cont to follow a renal protective strategy No signs of hydro on renal U/S U P/C ratio revealed non-nephrotic proteinuria Will follow with you. (2) COPD exacerbation Current Visit: Yes Status: Acute Subjective Principal diagnosis: Small bowel obstruction Interval history: Carey Yang is a very pleasant 61 y/o Female. Pt was s/e earlier today. She reported that she felt as though her swelling was slowling improving. She did not affirm N/V/D or F/C. Objective - Vital Signs Vital signs: Vital Signs Temp Pulse Resp BP Pulse Ox 04/12/17 09:30 87 04/12/17 07:50 18 91 04/12/17 07:43 97.9 F 88 22 138/91 94 04/12/17 04:11 19 93 04/12/17 03:00 98.1 F 85 18 144/88 97 04/12/17 00:05 86 04/11/17 23:34 98.4 F 91 18 146/81 93 04/11/17 23:24 14 94 04/11/17 20:15 98.4 F 95 19 145/97 95 04/11/17 19:53 20 95 04/11/17 16:17 18 93 04/11/17 15:27 83 04/11/17 15:08 98.3 F 85 22 97 04/11/17 11:35 87 04/11/17 11:16 13 146/89 98 04/11/17 11:04 89 16 146/89 98 Intake and Output 04/11/17 04/12/17 04/12/17 23:59 07:59 15:59 Intake Total 200 / 200 300 / 300 1000 / 1000 Output Total 600 / 600 1050 / 1050 Balance -400 / -400 -750 / -750 1000 / 1000 Intake: IV Fluids 200 / 200 200 / 200 1000 / 1000 0.9 % Sodium Chloride 1,000 ML 1000 / 1000 @ 125 mls/hr IVC .Q8H [facility] Rx#: [id number] Zosyn Premix 3.375 GM/200 ML 3. 200 / 200 200 / 200 375 gm In 200 ml @ 50 mls/hr IVPB Q8H [facility] Rx#:[id number] Oral 100 / 100 Output: Urine 100 / 100 Urethral (Heard) 100 / 100 Catheter 300 / 300 250 / 250 Gastric Drainage 300 / 300 700 / 700 Other: Stool Size Small Moderate Stool Consistency loose soft Stool Characteristics Normal for Patient Stool Color Brown Brown # Bowel Movements 1 # Bowel Movement Diapers 1 Blood Glucose* 175 172 - General Appearance General appearance: Present: well-developed, well-nourished, appears started age EENT: Present: ATNC, PERRL, mucous membranes moist Neck: Present: supple Respiratory: Present: wheezing Cardiology: Present: edema, regular rate, regular rhythm, normal S1, normal S2 Gastrointestinal: Present: normoactive bowel sounds, no tenderness, no guarding Integumentary: Present: warm and dry Neurologic: Present: no focal deficit, no asterixis, alert and oriented x3 Musculoskeletal: Present: no deformities, no erythema, no cyanosis Psychiatric: Present: mood/affect appropriate, cooperative - Lab 04/11/17 08:30 04/12/17 03:15 Most recent lab results ABG pH 7.39 pH Units (7.32-7.45) 04/09/17 11:06 ABG pCO2 62 mmHg (35-45) H 04/09/17 11:06 ABG pO2 53 mmHg (85-104) L 04/09/17 11:06 ABG HCO3 37 mEq/L (21-27) H 04/09/17 11:06 ABG O2 Saturation 85 % (95-98) L 04/09/17 11:06 Calcium 9.5 mg/dL (8.6-10.8) 04/12/17 03:15 Phosphorus 3.6 mg/dL (2.3-4.7) 04/12/17 03:15 Magnesium 2.1 mg/dL (1.6-2.6) 04/12/17 03:15 Urine Creatinine 64 mg/dL 04/11/17 08:00 Urine Sodium 26.0 mEq/L 04/11/17 08:00 Urine Total Protein 59 mg/dL (1-14) H 04/11/17 08:00 Consult Discharge Plan - Plan Referrals: Dimitris Villaseñor, SIDE PANEL PADDER [Primary Care Provider] - (sent web request on 04-10-17 @ 0985)
--- NOTE | 2017-04-12 14:42 | Internal Med Progress Note ---
Date of Encounter: 04/12/17 Time of Encounter: 14:39 - Assessment and plan (1) Constipation Current Visit: Yes Status: Acute Assessment and plan: Severe constipation, possible small bowel obstruction Continue NG tube and TPN Dulcolax administered with partial Can try tapwater enemas versus GoLYTELY suggested by GI Surgery will not intervene due to her poor recovery/condition/ventilation status Palliative care consult, poor quality of life, consider comfort if no improvement Qualifiers: Constipation type: drug induced constipation Qualified Code(s): K59.03 - Drug induced constipation (2) Ileus Current Visit: Yes Status: Acute (3) CKD (chronic kidney disease) stage 4, GFR 15-29 ml/min Current Visit: Yes Status: Acute Assessment and plan: Acute chronic renal failure Continue IV fluids (4) COPD (chronic obstructive pulmonary disease) Current Visit: No Status: Chronic Assessment and plan: History of acute on chronic respiratory failure likely secondary to COPD and a component of hypoventilation syndrome/acute decompensation due to VQ mismatch and obesity Pulmonary service recommended to continue bronchodilators and antibiotic therapy , Zosyn day 8 Qualifiers: COPD type: emphysema Emphysema type: unspecified Qualified Code(s): J43.9 - Emphysema, unspecified (5) History of DVT (deep vein thrombosis) Current Visit: No Status: Chronic (6) Acute and chronic respiratory failure ([id number]) Current Visit: Yes Status: Acute Qualifiers: Respiratory failure complication: hypoxia and hypercapnia Qualified Code(s) : J96.21 - Acute and chronic respiratory failure with hypoxia; J96.22 - Acute and chronic respiratory failure with hypercapnia; J96.22 - Acute and chronic respiratory failure with hypercapnia; J96.22 - Acute and chronic respiratory failure with hypercapnia (7) Tracheomalacia, acquired Current Visit: Yes Status: Chronic (8) Diabetes mellitus Current Visit: No Status: Chronic Assessment and plan: with hyperglycemia due to TPN increased levemir to 20 u bid Continue insulin sliding scale Qualifiers: Diabetes mellitus type: type 2 Diabetes mellitus complication status: with kidney complications Diabetes mellitus complication detail: with chronic kidney disease Diabetes mellitus watermaster insulin use: with watermaster use Chronic kidney disease stage: stage 3 (moderate) Qualified Code(s): E11.22 - Type 2 diabetes mellitus with diabetic chronic kidney disease; N18.3 - Chronic kidney disease, stage 3 (moderate); N18.3 - Chronic kidney disease, stage 3 ( moderate); Z79.4 - termite control service representative (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 of insulin; Z79.4 - termite control service representative ( 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 of insulin; Z79.4 - halfway (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 of insulin; Z79.4 - halfway (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 of insulin - Subjective Interval history: very somnolent, denies CP , feels SOB, has abdominal pain , had a BM this morning according to her RN, NG tube draining dark material - Constitutional Vitals: Temp Pulse Resp BP Pulse Ox 98.7 F 93 20 142/90 95 04/12/17 11:50 04/12/17 11:50 04/12/17 11:50 04/12/17 11:50 04/12/17 11:50 General appearance: Present: A&O X 3, morbidly obese, no acute distress - Head Head exam: Present: atraumatic, normocephalic - Eye Eye exam: Present: PERRL, conjuntiva pink, sclera anicteric Pupils: Present: PERRL - Neck Neck exam general surgery: Present: supple, trachea midline. Absent: lymphadenopathy - Respiratory Respiratory exam: Present: decreased breath sounds, CTAB. Absent: accessory muscle use, rales, rhonchi, wheezes - Cardiovascular Cardiovascular exam: Present: RRR, +S1, +S2. Absent: diastolic murmur, gallop, rubs, systolic murmur - GI/Abdominal GI/Abdominal exam: Present: distended, normal bowel sounds, soft, tenderness, no peritoneal signs - Extremities Exam Extremities exam: Present: warm, radial pulses palpable and symmetrical. Absent : calf tenderness, cyanotic, pedal edema - Neurological Exam Neurological exam: Present: CN II-XII intact, oriented X3, no focal deficits. Absent: pronater drift, facial droop, speech deficit - Skin Skin exam: Present: dry, intact Additional comments: NG tube in place Internal Medicine: Result - Labs CBC & Chem 7: 04/11/17 08:30 04/12/17 03:15 Labs: BMP 04/12/17 03:15 Sodium 145 Potassium 3.6 Chloride 103 Carbon Dioxide 31 H BUN 88 H Creatinine 2.48 H Glucose 207 H Calcium 9.5 - ABG Interpretation ABG results: ABG ABG pH 7.39 pH Units (7.32-7.45) 04/09/17 11:06 ABG pCO2 62 mmHg (35-45) H 04/09/17 11:06 ABG pO2 53 mmHg (85-104) L 04/09/17 11:06 ABG O2 Saturation 85 % (95-98) L 04/09/17 11:06 - Impressions Impressions KUB X-Ray 04/08/17 13:50 IMPRESSION: Nasogastric tube tip overlies the gastric body. D/ /08/2017 15:54:41 Rony Sumner MD / [email or web address] Interpreting Provider: Rony Sumner MD Retroperitoneum Ultrasound 04/09/17 16:00 IMPRESSION: No evidence of hydronephrosis. D/ / 04/09/2017 17:24:44 Rony Sumner MD / ben Interpreting Provider: Rony Sumner MD Consult Discharge Plan - Plan Referrals: Dimitris Villaseñor, SHOWPLACE MANAGER [Primary Care Provider] - (sent web request on 04-10-17 @ [phone])
[2017-04-12] MEDS: Levothyroxine Sodium 100 MCG VIAL IVP SCH (15:24)
[2017-04-12] MEDS ORDERED: Clinimix E 5%-15% SOLUTION 2,000 ML with MVI, adult with vitamin K 10 ML, Insulin Hum... IVC SCH (17:00)
--- NOTE | 2017-04-12 17:32 | Palliative - Consult Note ---
Date of Encounter: 04/12/17 Time of Encounter: 16:15 - Assessment and Plan (1) Counseling regarding advanced care planning and goals of care Current Visit: Yes Status: Acute Assessment and plan: Patient resting quietly. She currently living with brother. Unmarried, no children, and has siblings for support. Patient sister at bedside. Discussed goals of care. At this time she remains full code. In the past, sister describes her code status as DNR-Arrest, and that she wanted everything done, including a trach, but did not want CPR/Defib for cardiac arrest. When re- discussed pt is unsure what she would want done at this time, and wants to consider and discussed with family. Sister expresses concern that if pt does not improve and ileus persists, if pt could get a second opinion regarding surgery. Patient would be willing to consider this. Sister states some other siblings will be in later today and this weekend. Will plan on rediscussing tomorrow around 10-11, after re-evaluation of medications began by GI. (2) Abdominal pain Current Visit: Yes Status: Acute Assessment and plan: She has low dose Morphine PRN. Has utilized x 4 last 24 hours. Monitor Qualifiers: Abdominal location: generalized Qualified Code(s): R10.84 - Generalized abdominal pain (3) Chronic respiratory failure with hypoxia and hypercapnia Current Visit: No Status: Chronic (4) Ileus Current Visit: Yes Status: Acute Palliative-CN HPI - Data of Consult Consult date: 04/12/17 Requesting Physician: Enzo Kan Primary Care Provider: Dimitris Villaseñor CNP - Consult Narrative History of present illness: Ms. Yang is a 61 year old female who was transferred from [facility] due to findings of small bowel obstruction. She had presented there with abd pain, nausea and vomiting. She has a long history of constipation dating back 3-4 years according to her sister at bedside. Surgical consult was obtained, and it was concluded that pt was poor surgical candidate. GI consult has also been obtained. She has been treated conservatively with parenteral nutrition, NG for decompression and drainage, enemas, and laxatives. She is moving bowels some, and has had 3 bm's today, one noted as large. She also has a history of tracheomalacia and currently requiring BiPAP. She has had CVA in past and was mechanically ventilated at the time. Sister states they were prepared to do tracheostomy, however, pt did get extubated and did well. She currently lives with her brother at home. Chronic medical conditions include: type 2 diabetes, CVA, COPD, tobacco abuse, morbid obesity, CAD, chronic hypoxic respiratory failure. Upon my visit, she is awake and alert, but c/o abd pain and not very conversant. She did state she did not understand why she could not have surgery , and they it was because she was "too fat". Asking if someone else would be willing to perform surgery on her if it is needed. Sister tearful at bedside. CC: Enzo Kan Past Med Surg Social Fam HX - Past Medical History Medical history: arthritis, asthma, COPD, coronary artery disease, CVA, diabetes , GERD, hyperlipidemia, hypertension, thyroid disease, TIA Psychiatric history: anxiety, depression - Past Surgical History Surgical History: breast surgery, orthopedic, other, other - Social History Smoking Status: Current every day smoker Packs per day: 1 Smokeless Tobacco Status: No Alcohol use: none Drug use: none - Family History Mother Living Status: Hx Family Cardiac Disorders: Yes Hx Family Respiratory Disorders: Yes (emphysema) Hx Family Cancer: Yes (uterine cancer) Father Living Status: Hx Family Cardiac Disorders: Yes Medications and Allergies Folic Acid 1 mg PO DAILY 05/23/15 [History] Levothyroxine [Synthroid] 25 mcg PO DAILY 05/23/15 [History] Losartan [Cozaar] 25 mg PO DAILY 05/23/15 [History] metFORMIN [Glucophage] 1,000 mg PO BID 05/23/15 [History] Gabapentin [Neurontin] 300 mg PO TID 10/25/15 [History] Montelukast [Singulair] 10 mg PO DAILY 10/25/15 [History] Oxygen 2.5 l .ROUTE AD 10/25/15 [History] hydrOXYzine HCl [Hydroxyzine HCl] 25 mg PO TID PRN 10/25/15 [History] FLUoxetine HCl [Fluoxetine HCl] 40 mg PO DAILY 05/21/16 [History] Aspirin [Ecotrin] 325 mg PO DAILY 06/15/16 [History] Ipratropium/Albuterol Neb [Duoneb] 3 ml IH Q6HR 06/15/16 [History] Insulin Glargine,Hum.rec.anlog [Lantus Solostar] 40 unit SQ HS #1 06/17/16 [Rx] Fluticasone Propionate Nasal [Flonase] 2 spr NS DAILY 01/09/17 [History] Albuterol Neb [Proventil Neb] 2.5 mg IH [id number] PRN inh 01/16/17 [Rx] OxyCODONE Immed Rel [Roxicodone 5 MG] 5 mg PO Q6HR PRN #14 tab 01/16/17 [Rx] diazePAM [Valium] 5 mg PO TID PRN #20 01/16/17 [Rx] Furosemide [Lasix] 20 mg PO BID #28 tab 03/20/17 [Rx] Bisacodyl [Dulcolax] 10 mg RC DAILY PRN #10 supp.rect 03/28/17 [Rx] Carvedilol [Coreg] 6.25 mg PO BID 03/28/17 [History] Docusate [Colace] 100 mg PO BID #60 capsule 03/28/17 [Rx] Polyethylene Glycol 3350 [MiraLAX Powder Bulk 17.9 Oz] 1 scoop PO DAILY #510 gm 03/28/17 [Rx] 3 Allergy/AdvReac Type Severity Reaction Status Date / Time acetaminophen [From Tylenol] Allergy Hives Verified 04/04/17 13:05 ibuprofen AdvReac Nausea Verified 04/04/17 13:05 NSAIDS (Non-Steroidal AdvReac Nausea Verified 04/04/17 13:05 Anti-Inflamma All systems: reviewed and no additional remarkable complaints except as stated ( abd pain, generalized weakness,) Palliative Care-Exam - Constitutional Vitals: Temp Pulse Resp BP Pulse Ox 98.2 F 93 15 135/78 92 04/12/17 16:31 04/12/17 11:50 04/12/17 16:31 04/12/17 16:31 04/12/17 16:31 General appearance: Present: morbidly obese - Head Head Exam: Present: normal inspection, normocephalic - Eye Eye exam: Present: normal appearance, PERRL - Respiratory Respiratory exam: Present: CTAB - Cardiovascular Cardiovascular exam: Present: +S1, +S2 - GI/Abdominal Exam GI/Abdominal exam: Present: diminished bowel sounds, soft additional comments: NG patent with brown drainage - Catheter Type: Urethral (Heard) - Extremities Exam Additional comments: generalized edema to upper and lower extremities - Neurological Exam Neurological exam: Present: alert, strengths equal and symetr throughout Additional comments: Oriented to name and place - Psychiatric Psychiatric exam: Present: flat affect - Skin Skin exam: Present: dry, pallor, warm Internal Medicine - CN: Reslt - Labs CBC & Chem 7: 04/11/17 08:30 04/12/17 03:15 Labs: BMP 04/12/17 03:15 Sodium 145 Potassium 3.6 Chloride 103 Carbon Dioxide 31 H BUN 88 H Creatinine 2.48 H Glucose 207 H Calcium 9.5 - ABG Interpretation ABG results: ABG ABG pH 7.39 pH Units (7.32-7.45) 04/09/17 11:06 ABG pCO2 62 mmHg (35-45) H 04/09/17 11:06 ABG pO2 53 mmHg (85-104) L 04/09/17 11:06 ABG O2 Saturation 85 % (95-98) L 04/09/17 11:06 - Impressions Impressions KUB X-Ray 04/08/17 13:50 IMPRESSION: Nasogastric tube tip overlies the gastric body. D/ /08/2017 15:54:41 Rony Sumner MD / [email or web address] Interpreting Provider: Rony Sumner MD Retroperitoneum Ultrasound 04/09/17 16:00 IMPRESSION: No evidence of hydronephrosis. D/ / 04/09/2017 17:24:44 Rony Sumner MD / ben Interpreting Provider: Rony Sumner MD Consult Discharge Plan - Plan Referrals: Dimitris Villaseñor CNP [Primary Care Provider] - (sent web request on 04-10-17 @ [phone]) Palliative Quality Palliative Quality: Screen for Code Status: Yes, Screen for Goals of Care: Yes, Screen for Pain: Yes, If Pain Regimen Started, Initiate Bowel Regimen: Yes, Screen for Nausea/Vomitting: Yes Code Status: 04/04/17 23:14 Resuscitation Status: Active [RES] Routine Comment: Resuscitation Status: Full Code
--- NOTE | 2017-04-12 19:10 | Pulmonology Progress Note ---
Date of Encounter: 04/12/17 Time of Encounter: 13:00 Assessment and Plan (1) Acute and chronic respiratory failure ([id number]) Current Visit: Yes Status: Acute Patient has both acute on chronic hypoxic and hypercarbic respiratory failure due to COPD and some component of hypoventilation acute decompensation of her hypoxic respiratory failure is due to V/Q mismatch caused most likely due to basliar atelectasis due to splinting of diaphragm because of her distended abdomen in the setting of small bowel obstruction /ileus now she passed stools no nausea or vomitting. will continue BIPAP as patient is tolerating well her ileus is getting better , once her ileus getting better will do BIPAP qualification . Give breaks during the day then BIPAP at night. Qualifiers: Respiratory failure complication: hypoxia and hypercapnia Qualified Code(s) : J96.21 - Acute and chronic respiratory failure with hypoxia; J96.22 - Acute and chronic respiratory failure with hypercapnia; J96.22 - Acute and chronic respiratory failure with hypercapnia; J96.22 - Acute and chronic respiratory failure with hypercapnia (2) Tracheomalacia, acquired Current Visit: Yes Status: Chronic Encouraged to sit her up on BIPAP if off BIPAP encouraged incentive Spirometry. Counseled her family who was with her to encourage sit and do more incentive spirometry . (3) COPD (chronic obstructive pulmonary disease) Current Visit: Yes Status: Chronic To continue the current regimen of bronchodilators. We can deescalate antibiotics. Qualifiers: COPD type: unspecified COPD Qualified Code(s): J44.9 - Chronic obstructive pulmonary disease, unspecified Subjective Principal diagnosis: Small bowel obstruction Interval history: 61 year old female followed by pulmonary for acute on chronic hypoxic and hypercarbic respiratory failure. Patient says her symptoms are lot better. She doesnt move around much lying. Objective PUL Vital signs: Last Vital Signs Temp 98.2 F 04/12/17 16:31 Pulse 93 04/12/17 11:50 Resp 15 04/12/17 16:31 BP 135/78 04/12/17 16:31 Pulse Ox 92 04/12/17 16:31 Auscultation: bilateral: diminished breath sounds Results - Laboratory Findings CBC and BMP: 04/11/17 08:30 04/12/17 03:15 ABG ABG pH 7.39 pH Units (7.32-7.45) 11/28/17 11:06 ABG pCO2 62 mmHg (35-45) H 04/09/17 11:06 ABG pO2 53 mmHg (85-104) L 04/09/17 11:06 ABG O2 Saturation 85 % (95-98) L 04/09/17 11:06 Abnormal lab findings: Abnormal lab results RBC 3.50 M/mcL (3.82-4.97) L 04/11/17 08:30 Hgb 10.3 g/dL (11.5-15.4) L D 04/11/17 08:30 Hct 33.2 % (35.3-44.9) L 04/11/17 08:30 MCHC 31.0 g/dL (31.6-35.5) L 04/11/17 08:30 RDW 14.6 % (11.5-14.5) H 04/11/17 08:30 MPV 9.0 fL (9.4-12.4) L 04/11/17 08:30 Band Neutrophils % 10.0 % (0-4) H 04/05/17 00:24 Neutrophils # 14.7 K/mcL (1.6-8.9) H 04/08/17 10:02 Lymphocytes # 0.4 K/mcL (0.6-4.6) L 04/08/17 10:02 Nucleated RBCs/100 WBC 0.1 /100 WBC (0) H 04/05/17 00:24 ABG pCO2 62 mmHg (35-45) H 04/09/17 11:06 ABG pO2 53 mmHg (85-104) L 04/09/17 11:06 ABG HCO3 37 mEq/L (21-27) H 04/09/17 11:06 ABG Total CO2 39 mEq/L (20-26) H 04/09/17 11:06 ABG O2 Saturation 85 % (95-98) L 04/09/17 11:06 ABG Base Excess 10 mEq/L (-2 to 3) H 04/09/17 11:06 Carbon Dioxide 31 mEq/L (19-29) H 04/12/17 03:15 BUN 88 mg/dL (7-20) H 04/12/17 03:15 Creatinine 2.48 mg/dL (0.57-1.11) H 04/12/17 03:15 Est GFR ( Amer) 24 (> 60) L 04/12/17 03:15 Est GFR (Non-Af Amer) 20 (> 60) L 04/12/17 03:15 BUN/Creatinine Ratio 35 (6-26) H 04/12/17 03:15 Glucose 207 mg/dL (70-99) H 04/12/17 03:15 POC Glucose 175 (58-89) H 04/11/17 23:38 Calculated Osmolality 333 (280-300) H 04/12/17 03:15 Uric Acid 18.8 mg/dL (2.6-6.0) H 04/09/17 18:30 Creatine Kinase 349 Units/L (29-168) H 04/09/17 18:30 Albumin 1.9 g/dL (3.5-5.0) L 04/09/17 18:30 Globulin 4.6 g/dL (2.4-3.5) H 04/09/17 18:30 Albumin/Globulin Ratio 0.4 (1.1-2.2) L 04/09/17 18:30 Prealbumin 9.0 mg/dL (16.0-38.0) L 04/11/17 04:55 Triglycerides 246 mg/dL (< 150) H 04/10/17 08:46 Ur Specific [place] 1.028 (1.010-1.025) H 04/08/17 10:08 Protein/Creatinin Ratio 0.92 mg/mg (0-0.20) H 04/11/17 08:00 Urine Total Protein 59 mg/dL (1-14) H 04/11/17 08:00 - Clinical Findings Intake & Output: Intake & Output 04/12/17 04/12/17 04/12/17 07:59 15:59 23:59 Intake Total 500 / 500 1500 / 1500 0 / 0 Output Total 1050 / 1050 1150 / 1150 700 / 700 Balance -550 / -550 350 / 350 -700 / -700 Consult Discharge Plan - Plan Referrals: Dimitris Villaseñor, DIG[employer] MARKETING PROJECT MANAGER [Primary Care Provider] - (sent web request on 04-10-17 @ [phone])
[2017-04-12] MEDS ORDERED: *HR* LORazepam 2 MG/ML VIAL IVP ONE (21:57)
[2017-04-13] MEDS: *HR* Morphine 2 MG/ML SYRINGE IVP PRN ×3 (02:25→21:21)
[2017-04-13] MEDS: Piperacillin/Tazobactam 3.375 GM/200 ML BAG IVPB SCH ×3 (03:48→19:44)
[2017-04-13] MEDS: Insulin LISPRO 300 UNITS/3 ML VIAL SQ SCH ×5 (03:52→19:45)
[2017-04-13] MEDS: Ipratropium/Albuterol Neb 3 ML IH SCH ×6 (04:03→23:37)
[2017-04-13 04:08] LABS: Calcium 9.3 mg/dL (8.6-10.8); Magnesium 1.6 mg/dL (1.6-2.6); Phosphorous 3.1 mg/dL (2.3-4.7); Potassium 3.5 mEq/L (3.5-4.5)
[2017-04-13] MEDS: *HR* Heparin 5,000 UNIT/ML VIAL SQ SCH ×2 (05:04→17:04)
--- NOTE | 2017-04-13 07:58 | Palliative Progress Note ---
<Claudio Correa - Last Filed: 04/13/17 10:27> Date of Encounter: 04/13/17 Time of Encounter: 07:56 - Assessment and plan (1) Goals of care, counseling/discussion Current Visit: Yes Status: Acute Assessment and plan: Meeting between patient, her family, and the palliative team occurred around 1015 Patient stated that she would like her CODE STATUS to be DNR CCA. She is okay with SHORT-TERM INTUBATION. (2) Chronic respiratory failure with hypoxia and hypercapnia Current Visit: Yes Status: Chronic Assessment and plan: On BiPAP Management per primary team (3) Abdominal pain Current Visit: Yes Status: Acute Assessment and plan: Morphine 2 mg IVP PRN given 3 times in the last 24 hours Qualifiers: Abdominal location: generalized Qualified Code(s): R10.84 - Generalized abdominal pain (4) Ileus Current Visit: Yes Status: Acute Assessment and plan: Nursing reports soft BM x5, last one at 0400 - Time Spent With Patient Total time spent is greater than 50% in coordination of care (as documented) at patient's floor/unit and/or counseling patient: 25 - 35 minutes - Subjective Interval history: Nursing reports about 5 soft bowel movements since last night. - Constitutional Vitals: Abnormal lab results RBC 3.50 M/mcL (3.82-4.97) L 04/11/17 08:30 Hgb 10.3 g/dL (11.5-15.4) L D 04/11/17 08:30 Hct 33.2 % (35.3-44.9) L 04/11/17 08:30 MCHC 31.0 g/dL (31.6-35.5) L 04/11/17 08:30 RDW 14.6 % (11.5-14.5) H 04/11/17 08:30 MPV 9.0 fL (9.4-12.4) L 04/11/17 08:30 Band Neutrophils % 10.0 % (0-4) H 04/05/17 00:24 Neutrophils # 14.7 K/mcL (1.6-8.9) H 04/08/17 10:02 Lymphocytes # 0.4 K/mcL (0.6-4.6) L 04/08/17 10:02 Nucleated RBCs/100 WBC 0.1 /100 WBC (0) H 04/05/17 00:24 ABG pCO2 62 mmHg (35-45) H 04/09/17 11:06 ABG pO2 53 mmHg (85-104) L 04/09/17 11:06 ABG HCO3 37 mEq/L (21-27) H 04/09/17 11:06 ABG Total CO2 39 mEq/L (20-26) H 04/09/17 11:06 ABG O2 Saturation 85 % (95-98) L 04/09/17 11:06 ABG Base Excess 10 mEq/L (-2 to 3) H 04/09/17 11:06 Carbon Dioxide 30 mEq/L (19-29) H 04/13/17 03:11 BUN 84 mg/dL (7-20) H 04/13/17 03:11 Creatinine 2.03 mg/dL (0.57-1.11) H 04/13/17 03:11 Est GFR ( Amer) 30 (> 60) L 04/13/17 03:11 Est GFR (Non-Af Amer) 25 (> 60) L 04/13/17 03:11 BUN/Creatinine Ratio 41 (6-26) H 04/13/17 03:11 Glucose 237 mg/dL (70-99) H 04/13/17 03:11 POC Glucose 209 (58-89) H 04/12/17 23:34 Calculated Osmolality 333 (280-300) H 04/13/17 03:11 Uric Acid 18.8 mg/dL (2.6-6.0) H 04/09/17 18:30 Creatine Kinase 349 Units/L (29-168) H 04/09/17 18:30 Albumin 1.9 g/dL (3.5-5.0) L 04/09/17 18:30 Globulin 4.6 g/dL (2.4-3.5) H 04/09/17 18:30 Albumin/Globulin Ratio 0.4 (1.1-2.2) L 04/09/17 18:30 Prealbumin 9.0 mg/dL (16.0-38.0) L 04/11/17 04:55 Triglycerides 246 mg/dL (< 150) H 04/10/17 08:46 Ur Specific [place] 1.028 (1.010-1.025) H 04/08/17 10:08 Protein/Creatinin Ratio 0.92 mg/mg (0-0.20) H 04/11/17 08:00 Urine Total Protein 59 mg/dL (1-14) H 04/11/17 08:00 - Head Head exam: Present: atraumatic, normal inspection, normocephalic - Respiratory Respiratory exam: Present: CTAB - Cardiovascular Cardiovascular exam: Present: RRR, +S1, +S2 - GI/Abdominal GI/Abdominal exam: Present: diminished bowel sounds, soft, tenderness (upper abdomen, midline extending to the left) - Neurological Exam Neurological exam: Present: alert - Skin Skin exam: Present: dry, pallor, warm Palliative Quality Palliative Quality: Screen for Code Status: Yes, Screen for Goals of Care: Yes, Screen for Pain: Yes, If Pain Regimen Started, Initiate Bowel Regimen: Yes, Screen for Nausea/Vomitting: Yes Code Status: 04/04/17 23:14 Resuscitation Status: Active [RES] Routine Comment: Resuscitation Status: Full Code - Labs CBC & Chem 7: 04/11/17 08:30 04/13/17 03:11 Labs: Laboratory Results - last 24 hr 04/12/17 04/12/17 04/12/17 03:45 07:42 11:51 Sodium Potassium Chloride Carbon Dioxide BUN Creatinine Est GFR ( Amer) Est GFR (Non-Af Amer) BUN/Creatinine Ratio Glucose POC Glucose 174 H 172 H 202 H Calculated Osmolality Calcium Phosphorus Magnesium 04/12/17 04/12/17 04/12/17 16:33 20:10 23:34 Sodium Potassium Chloride Carbon Dioxide BUN Creatinine Est GFR ( Amer) Est GFR (Non-Af Amer) BUN/Creatinine Ratio Glucose POC Glucose 185 H 192 H 209 H Calculated Osmolality Calcium Phosphorus Magnesium 04/13/17 03:11 Sodium 145 Potassium 3.5 Chloride 107 Carbon Dioxide 30 H BUN 84 H Creatinine 2.03 H Est GFR ( Amer) 30 L Est GFR (Non-Af Amer) 25 L BUN/Creatinine Ratio 41 H Glucose 237 H POC Glucose Calculated Osmolality 333 H Calcium 9.3 Phosphorus 3.1 Magnesium 1.6 - Impressions Impressions KUB X-Ray 04/08/17 13:50 IMPRESSION: Nasogastric tube tip overlies the gastric body. D/ /08/2017 15:54:41 Rony Sumner MD / [email or web address] Interpreting Provider: Rony Sumner MD Retroperitoneum Ultrasound 04/09/17 16:00 IMPRESSION: No evidence of hydronephrosis. D/ / 04/09/2017 17:24:44 Rony Sumner MD / [email or web address] Interpreting Provider: Rony Sumner MD - ABG Interpretation ABG results: ABG ABG pH 7.39 pH Units (7.32-7.45) 04/09/17 11:06 ABG pCO2 62 mmHg (35-45) H 04/09/17 11:06 ABG pO2 53 mmHg (85-104) L 04/09/17 11:06 ABG O2 Saturation 85 % (95-98) L 04/09/17 11:06 Consult Discharge Plan - Plan Referrals: Dimitris Villaseñor, INTERNATIONAL LOGISTICS MANAGER [Primary Care Provider] - (sent web request on 04-10-17 @ 0991) <Jagdeep Solitario - Last Filed: 04/13/17 10:32> Date of Encounter: 04/13/17 - Time Spent With Patient Total time spent is greater than 50% in coordination of care (as documented) at patient's floor/unit and/or counseling patient: - Constitutional Vitals: Abnormal lab results RBC 3.50 M/mcL (3.82-4.97) L 04/11/17 08:30 Hgb 10.3 g/dL (11.5-15.4) L D 04/11/17 08:30 Hct 33.2 % (35.3-44.9) L 04/11/17 08:30 MCHC 31.0 g/dL (31.6-35.5) L 04/11/17 08:30 RDW 14.6 % (11.5-14.5) H 04/11/17 08:30 MPV 9.0 fL (9.4-12.4) L 04/11/17 08:30 Band Neutrophils % 10.0 % (0-4) H 04/05/17 00:24 Neutrophils # 14.7 K/mcL (1.6-8.9) H 04/08/17 10:02 Lymphocytes # 0.4 K/mcL (0.6-4.6) L 04/08/17 10:02 Nucleated RBCs/100 WBC 0.1 /100 WBC (0) H 04/05/17 00:24 ABG pCO2 62 mmHg (35-45) H 04/09/17 11:06 ABG pO2 53 mmHg (85-104) L 04/09/17 11:06 ABG HCO3 37 mEq/L (21-27) H 04/09/17 11:06 ABG Total CO2 39 mEq/L (20-26) H 04/09/17 11:06 ABG O2 Saturation 85 % (95-98) L 04/09/17 11:06 ABG Base Excess 10 mEq/L (-2 to 3) H 04/09/17 11:06 Carbon Dioxide 30 mEq/L (19-29) H 04/13/17 03:11 BUN 84 mg/dL (7-20) H 04/13/17 03:11 Creatinine 2.03 mg/dL (0.57-1.11) H 04/13/17 03:11 Est GFR ( Amer) 30 (> 60) L 04/13/17 03:11 Est GFR (Non-Af Amer) 25 (> 60) L 04/13/17 03:11 BUN/Creatinine Ratio 41 (6-26) H 04/13/17 03:11 Glucose 237 mg/dL (70-99) H 04/13/17 03:11 POC Glucose 223 (58-89) H 04/13/17 07:50 Calculated Osmolality 333 (280-300) H 04/13/17 03:11 Uric Acid 18.8 mg/dL (2.6-6.0) H 04/09/17 18:30 Creatine Kinase 349 Units/L (29-168) H 04/09/17 18:30 Albumin 1.9 g/dL (3.5-5.0) L 04/09/17 18:30 Globulin 4.6 g/dL (2.4-3.5) H 04/09/17 18:30 Albumin/Globulin Ratio 0.4 (1.1-2.2) L 04/09/17 18:30 Prealbumin 9.0 mg/dL (16.0-38.0) L 04/11/17 04:55 Triglycerides 246 mg/dL (< 150) H 04/10/17 08:46 Ur Specific [place] 1.028 (1.010-1.025) H 04/08/17 10:08 Protein/Creatinin Ratio 0.92 mg/mg (0-0.20) H 04/11/17 08:00 Urine Total Protein 59 mg/dL (1-14) H 04/11/17 08:00 - Attending Attestation I examined this patient and my medical decision-making was reviewed with the Resident Physician. I agree with the documented findings, disposition and treatment plan as described except to the extent set forth below. Palliative Quality Code Status: 04/04/17 23:14 Resuscitation Status: Active [RES] Routine Comment: Resuscitation Status: Full Code - Labs CBC & Chem 7: 04/11/17 08:30 04/13/17 03:11 Labs: Laboratory Results - last 24 hr 04/12/17 04/12/17 04/12/17 03:45 07:42 11:51 Sodium Potassium Chloride Carbon Dioxide BUN Creatinine Est GFR ( Amer) Est GFR (Non-Af Amer) BUN/Creatinine Ratio Glucose POC Glucose 174 H 172 H 202 H Calculated Osmolality Calcium Phosphorus Magnesium 04/12/17 04/12/17 04/12/17 16:33 20:10 23:34 Sodium Potassium Chloride Carbon Dioxide BUN Creatinine Est GFR ( Amer) Est GFR (Non-Af Amer) BUN/Creatinine Ratio Glucose POC Glucose 185 H 192 H 209 H Calculated Osmolality Calcium Phosphorus Magnesium 04/13/17 04/13/17 03:11 07:50 Sodium 145 Potassium 3.5 Chloride 107 Carbon Dioxide 30 H BUN 84 H Creatinine 2.03 H Est GFR ( Amer) 30 L Est GFR (Non-Af Amer) 25 L BUN/Creatinine Ratio 41 H Glucose 237 H POC Glucose 223 H Calculated Osmolality 333 H Calcium 9.3 Phosphorus 3.1 Magnesium 1.6 - ABG Interpretation ABG results: ABG ABG pH 7.39 pH Units (7.32-7.45) 04/09/17 11:06 ABG pCO2 62 mmHg (35-45) H 04/09/17 11:06 ABG pO2 53 mmHg (85-104) L 04/09/17 11:06 ABG O2 Saturation 85 % (95-98) L 04/09/17 11:06
[2017-04-13] MEDS: Nicotine 21 MG PATCH.TD24 TD SCH (08:14)
[2017-04-13] MEDS: Levothyroxine Sodium 100 MCG VIAL IVP SCH (08:14)
[2017-04-13] MEDS: Insulin DETEMIR 100 UNIT/ML X5UNITS SQ SCH ×2 (08:14→19:55)
[2017-04-13] MEDS: Budesonide/Formoterol 160/4.5 MDI IH SCH ×2 (09:40→20:25)
--- NOTE | 2017-04-13 11:29 | Nephrology Progress Note ---
Date of Encounter: 04/13/17 Time of Encounter: 09:30 - Assessment and Plan (1) Acute kidney injury superimposed on chronic kidney disease Status: Resolved Nonoliguric GUERRERO and continuing to improve No need for CANT GANG SAWYER. Cont to follow a renal protective strategy No signs of hydro on renal U/S U P/C ratio revealed non-nephrotic proteinuria Continue to follow a renal protective strategy: dose renally cleared Rx by GFR. Avoid Nephrotoxins. Monitor serum K+, trending lower while on both IVF and NGT suction: she could become hypokalemic by tomorrow. Since she is trending better day, I will sign off at this point, but I would recommend that she follow-up as an outpatient with nephrology in about 4-[address] looks like Dr. Acevedo first saw her, so please have her follow up with him. Thank you. (2) COPD exacerbation Status: Acute As per primary (3) Acute kidney injury Status: Acute See above (4) CKD (chronic kidney disease) stage 4, GFR 15-29 ml/min Status: Chronic Baseline CKD Subjective Principal diagnosis: Small bowel obstruction Interval history: The pt was s/e. She did not affirm N/V/D or F/C or uremic complaints. Objective - Vital Signs Vital signs: Vital Signs Temp Pulse Resp BP Pulse Ox 04/13/17 10:02 83 20 92 04/13/17 09:41 14 96 04/13/17 08:28 85 04/13/17 07:46 98.8 F 85 14 150/70 96 04/13/17 04:05 15 119/71 95 04/13/17 03:11 98.6 F 93 16 119/71 04/12/17 23:46 16 94 04/12/17 23:08 98.8 F 97 18 135/75 90 04/12/17 20:46 94 04/12/17 19:55 15 131/47 94 04/12/17 19:39 99.3 F 96 18 131/47 96 04/12/17 16:31 98.2 F 15 135/78 92 04/12/17 15:46 18 94 04/12/17 11:50 98.7 F 93 20 142/90 95 04/12/17 11:34 18 94 Intake and Output 04/12/17 04/13/17 04/13/17 23:59 07:59 15:59 Intake Total 1400 / 1400 250 / 250 Output Total 1450 / 1450 1000 / 1000 475 / 475 Balance -50 / -50 -750 / -750 -475 / -475 Intake: IV Fluids 1400 / 1400 250 / 250 0.9 % Sodium Chloride 1,000 ML 1000 / 1000 @ 125 mls/hr IVC .Q8H [facility] Rx#: [id number] Intralipid 20% 250 ML @ 21 mls/ 250 / 250 hr IVPB MoWeFr@1700 [facility] Rx#: [id number] Zosyn Premix 3.375 GM/200 ML 3. 400 / 400 375 gm In 200 ml @ 50 mls/hr IVPB Q8H [facility] Rx#:[id number] Oral 0 / 0 0 / 0 Infusion Intake 0 / 0 Output: Catheter 1000 / 1000 800 / 800 Gastric Drainage 450 / 450 200 / 200 475 / 475 Other: Stool Size Small Small Stool Consistency loose soft Stool Color Brown Brown # Bowel Movements 1 1 Weight 131.4 kg Blood Glucose* 209 223 Patient Weight 04/13/17 23:59 Weight 131.4 kg - General Appearance Exam: General appearance: Present: well-developed, well-nourished, appears started age EENT: Present: ATNC, PERRL, mucous membranes moist Neck: Present: supple Respiratory: Present: wheezing Cardiology: Present: LE edema noted bilaterally, regular rate, regular rhythm, normal S1, normal S2 Gastrointestinal: Present: normoactive bowel sounds, no tenderness, no guarding Integumentary: Present: warm and dry Neurologic: Present: no focal deficit, no asterixis, alert and oriented x3 Musculoskeletal: Present: no deformities, no erythema, no cyanosis Psychiatric: Present: mood/affect appropriate, cooperative - Lab 04/19/17 03:25 04/19/17 03:25 Most recent lab results ABG pH 7.39 pH Units (7.32-7.45) 04/09/17 11:06 ABG pCO2 62 mmHg (35-45) H 04/09/17 11:06 ABG pO2 53 mmHg (85-104) L 04/09/17 11:06 ABG HCO3 37 mEq/L (21-27) H 04/09/17 11:06 ABG O2 Saturation 85 % (95-98) L 04/09/17 11:06 Calcium 9.3 mg/dL (8.6-10.8) 04/13/17 03:11 Phosphorus 3.1 mg/dL (2.3-4.7) 04/13/17 03:11 Magnesium 1.6 mg/dL (1.6-2.6) 04/13/17 03:11 Urine Creatinine 64 mg/dL 04/11/17 08:00 Urine Sodium 26.0 mEq/L 04/11/17 08:00 Urine Total Protein 59 mg/dL (1-14) H 04/11/17 08:00 Consult Discharge Plan - Plan Instructions: Acute Kidney Injury (DC), Chronic Obstructive Pulmonary Disease ( DC), Acute Abdominal Pain (DC) Referrals: Dimitris Villaseñor CNP [Primary Care Provider] - 04/29/17 11:00 am () Vernell Arndt MD [Partnered Physician] - (Please call to arrange for hospital follow-up appointment) Jamie Keene MD [Partnered Physician] - (Please call to make hospital follow-up appointment) Prescriptions: Budesonide/Formoterol 160/4.5 [Symbicort 160/4.5] 2 puff IH BIDR #1 inhaler Magnesium Oxide [Mag-Ox] 400 mg PO BID #14 tablet Metoclopramide [Reglan] 5 mg PO QIDAC #120 tablet Nicotine Patch [Nicoderm] 21 mg TD DAILY #30 patch.td24 Sennosides/Docusate Sodium [Senna Plus] 2 each PO BID #60 tablet
--- NOTE | 2017-04-13 13:06 | Internal Med Progress Note ---
Date of Encounter: 04/13/17 Time of Encounter: 13:04 - Assessment and plan (1) Constipation Current Visit: Yes Status: Acute Assessment and plan: Severe constipation, possible small bowel obstruction Continue NG tube and TPN Dulcolax administered with partial results Continue tap water enemas BID, may start GoLYTELY suggested by GI when there is less NG tube output Surgery will not intervene due to her poor recovery/condition/ventilation status Palliative care consulted, DNRcc, would accept intubation Qualifiers: Constipation type: drug induced constipation Qualified Code(s): K59.03 - Drug induced constipation (2) Ileus Current Visit: Yes Status: Acute (3) CKD (chronic kidney disease) stage 4, GFR 15-29 ml/min Current Visit: Yes Status: Acute Assessment and plan: Acute chronic renal failure Continue IV fluids (4) COPD (chronic obstructive pulmonary disease) Current Visit: No Status: Chronic Assessment and plan: History of acute on chronic respiratory failure likely secondary to COPD and a component of hypoventilation syndrome/acute decompensation due to VQ mismatch and obesity Pulmonary service recommended to continue bronchodilators and antibiotic therapy , Zosyn day 9 (may discontinue) Qualifiers: COPD type: emphysema Emphysema type: unspecified Qualified Code(s): J43.9 - Emphysema, unspecified (5) History of DVT (deep vein thrombosis) Current Visit: No Status: Chronic (6) Acute and chronic respiratory failure ([id number]) Current Visit: Yes Status: Acute Qualifiers: Respiratory failure complication: hypoxia and hypercapnia Qualified Code(s) : J96.21 - Acute and chronic respiratory failure with hypoxia; J96.22 - Acute and chronic respiratory failure with hypercapnia; J96.22 - Acute and chronic respiratory failure with hypercapnia; J96.22 - Acute and chronic respiratory failure with hypercapnia (7) Tracheomalacia, acquired Current Visit: Yes Status: Chronic (8) Diabetes mellitus Current Visit: No Status: Chronic Assessment and plan: with hyperglycemia due to TPN increased levemir to 20 u bid Continue insulin sliding scale Qualifiers: Diabetes mellitus type: type 2 Diabetes mellitus complication status: with kidney complications Diabetes mellitus complication detail: with chronic kidney disease Diabetes mellitus nursing home insulin use: with nursing home use Chronic kidney disease stage: stage 3 (moderate) Qualified Code(s): E11.22 - Type 2 diabetes mellitus with diabetic chronic kidney disease; N18.3 - Chronic kidney disease, stage 3 (moderate); N18.3 - Chronic kidney disease, stage 3 ( moderate); 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; Z79.4 - group home ( 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 of insulin; Z79.4 - group home (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 of insulin; 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 - Subjective Interval history: Still very somnolent, was interacting more this morning per family, denies CP , feels SOB, has abdominal pain , had a BM this morning according to her RN, NG tube draining dark material - Constitutional Vitals: Temp Pulse Resp BP Pulse Ox 98.9 F 87 20 141/61 91 04/13/17 12:04 04/13/17 12:25 04/13/17 12:25 04/13/17 12:25 04/13/17 12:25 General appearance: Present: A&O X 3, morbidly obese, no acute distress Exam: - Head Head exam: Present: atraumatic, normocephalic - Eye Eye exam: Present: PERRL, conjuntiva pink, sclera anicteric Pupils: Present: PERRL - Neck Neck exam general surgery: Present: supple, trachea midline. Absent: lymphadenopathy - Respiratory Respiratory exam: Present: decreased breath sounds, CTAB. Absent: accessory muscle use, rales, rhonchi, wheezes - Cardiovascular Cardiovascular exam: Present: RRR, +S1, +S2. Absent: diastolic murmur, gallop, rubs, systolic murmur - GI/Abdominal GI/Abdominal exam: Present: distended, normal bowel sounds, soft, tenderness, no peritoneal signs - Extremities Exam Extremities exam: Present: warm, radial pulses palpable and symmetrical. Absent : calf tenderness, cyanotic, pedal edema - Neurological Exam Neurological exam: Present: CN II-XII intact, oriented X3, no focal deficits. Absent: pronater drift, facial droop, speech deficit - Skin Skin exam: Present: dry, intact Additional comments: NG tube in place Internal Medicine: Result - Labs CBC & Chem 7: 04/11/17 08:30 04/13/17 03:11 Labs: BMP 04/13/17 03:11 Sodium 145 Potassium 3.5 Chloride 107 Carbon Dioxide 30 H BUN 84 H Creatinine 2.03 H Glucose 237 H Calcium 9.3 - ABG Interpretation ABG results: ABG ABG pH 7.39 pH Units (7.32-7.45) 04/09/17 11:06 ABG pCO2 62 mmHg (35-45) H 04/09/17 11:06 ABG pO2 53 mmHg (85-104) L 04/09/17 11:06 ABG O2 Saturation 85 % (95-98) L 04/09/17 11:06 Consult Discharge Plan - Plan Referrals: Dimitris Villaseñor CNP [Primary Care Provider] - (sent web request on 04-10-17 @ 0776)
[2017-04-13] MEDS ORDERED: Clinimix E 5%-15% SOLUTION 2,000 ML with MVI, adult with vitamin K 10 ML, Insulin Hum... IVC SCH (17:00)
--- NOTE | 2017-04-13 18:08 | Pulmonology Progress Note ---
Date of Encounter: 04/13/17 Time of Encounter: 11:15 Assessment and Plan (1) Acute and chronic respiratory failure ([id number]) Current Visit: Yes Status: Acute Patient has both acute on chronic hypoxic and hypercarbic respiratory failure due to COPD and some component of hypoventilation acute decompensation of her hypoxic respiratory failure is due to V/Q mismatch caused most likely due to basliar atelectasis due to splinting of diaphragm because of her distended abdomen in the setting of small bowel obstruction /ileus now she passed stools no nausea or vomitting still has lot of OG output will continue BIPAP as patient is tolerating her , once her ileus getting better will do BIPAP qualification . Give breaks during the day then BIPAP at night. Qualifiers: Respiratory failure complication: hypoxia and hypercapnia Qualified Code(s) : J96.21 - Acute and chronic respiratory failure with hypoxia; J96.22 - Acute and chronic respiratory failure with hypercapnia; J96.22 - Acute and chronic respiratory failure with hypercapnia; J96.22 - Acute and chronic respiratory failure with hypercapnia (2) Tracheomalacia, acquired Current Visit: Yes Status: Chronic Encouraged to sit her up on BIPAP if off BIPAP encouraged incentive Spirometry. Counseled her family who was with her to encourage sit and do more incentive spirometry . (3) COPD (chronic obstructive pulmonary disease) Current Visit: Yes Status: Chronic To continue the current regimen of bronchodilators. We can deescalate antibiotics. Qualifiers: COPD type: unspecified COPD Qualified Code(s): J44.9 - Chronic obstructive pulmonary disease, unspecified Subjective Principal diagnosis: Small bowel obstruction Interval history: 61 year old female followed by pulmonary for acute on chronic hypoxic and hypercarbic respiratory failure. Patient says her symptoms are lot better. She doesnt move around much lying in bed , still has ileus with lot of NG output , denies any cough with sputum production , denies any fever or chills . Objective PUL Vital signs: Last Vital Signs Temp 98.6 F 04/13/17 16:07 Pulse 87 04/13/17 18:03 Resp 18 04/13/17 18:03 BP 133/60 04/13/17 16:59 Pulse Ox 91 04/13/17 18:03 Auscultation: bilateral: diminished breath sounds Gastrointestinal: hypoactive bowel sounds, other (distended ) Results - Laboratory Findings CBC and BMP: 04/11/17 08:30 04/13/17 03:11 ABG ABG pH 7.39 pH Units (7.32-7.45) 04/09/17 11:06 ABG pCO2 62 mmHg (35-45) H 04/09/17 11:06 ABG pO2 53 mmHg (85-104) L 04/09/17 11:06 ABG O2 Saturation 85 % (95-98) L 04/09/17 11:06 Abnormal lab findings: Abnormal lab results RBC 3.50 M/mcL (3.82-4.97) L 04/11/17 08:30 Hgb 10.3 g/dL (11.5-15.4) L D 04/11/17 08:30 Hct 33.2 % (35.3-44.9) L 04/11/17 08:30 MCHC 31.0 g/dL (31.6-35.5) L 04/11/17 08:30 RDW 14.6 % (11.5-14.5) H 04/11/17 08:30 MPV 9.0 fL (9.4-12.4) L 04/11/17 08:30 Band Neutrophils % 10.0 % (0-4) H 04/05/17 00:24 Neutrophils # 14.7 K/mcL (1.6-8.9) H 04/08/17 10:02 Lymphocytes # 0.4 K/mcL (0.6-4.6) L 04/08/17 10:02 Nucleated RBCs/100 WBC 0.1 /100 WBC (0) H 04/05/17 00:24 ABG pCO2 62 mmHg (35-45) H 04/09/17 11:06 ABG pO2 53 mmHg (85-104) L 04/09/17 11:06 ABG HCO3 37 mEq/L (21-27) H 04/09/17 11:06 ABG Total CO2 39 mEq/L (20-26) H 04/09/17 11:06 ABG O2 Saturation 85 % (95-98) L 04/09/17 11:06 ABG Base Excess 10 mEq/L (-2 to 3) H 04/09/17 11:06 Carbon Dioxide 30 mEq/L (19-29) H 04/13/17 03:11 BUN 84 mg/dL (7-20) H 04/13/17 03:11 Creatinine 2.03 mg/dL (0.57-1.11) H 04/13/17 03:11 Est GFR ( Amer) 30 (> 60) L 04/13/17 03:11 Est GFR (Non-Af Amer) 25 (> 60) L 04/13/17 03:11 BUN/Creatinine Ratio 41 (6-26) H 04/13/17 03:11 Glucose 237 mg/dL (70-99) H 04/13/17 03:11 POC Glucose 147 (58-89) H 04/13/17 16:14 Calculated Osmolality 333 (280-300) H 04/13/17 03:11 Uric Acid 18.8 mg/dL (2.6-6.0) H 04/09/17 18:30 Creatine Kinase 349 Units/L (29-168) H 04/09/17 18:30 Albumin 1.9 g/dL (3.5-5.0) L 04/09/17 18:30 Globulin 4.6 g/dL (2.4-3.5) H 04/09/17 18:30 Albumin/Globulin Ratio 0.4 (1.1-2.2) L 04/09/17 18:30 Prealbumin 9.0 mg/dL (16.0-38.0) L 04/11/17 04:55 Triglycerides 246 mg/dL (< 150) H 04/10/17 08:46 Ur Specific [place] 1.028 (1.010-1.025) H 04/08/17 10:08 Protein/Creatinin Ratio 0.92 mg/mg (0-0.20) H 04/11/17 08:00 Urine Total Protein 59 mg/dL (1-14) H 04/11/17 08:00 - Clinical Findings Intake & Output: Intake & Output 04/13/17 04/13/17 04/13/17 07:59 15:59 23:59 Intake Total 450 / 450 0 / 0 Output Total 1000 / 1000 475 / 475 700 / 700 Balance -550 / -550 -475 / -475 -700 / -700 Weight 131.4 kg Consult Discharge Plan - Plan Referrals: Dimitris Villaseñor, JARRETT [Primary Care Provider] - (sent web request on 04-10-17 @ 2425)
[2017-04-13] MEDS: 0.9 % Sodium Chloride 1,000 ML IVC SCH (18:17)
[2017-04-14] MEDS: Insulin LISPRO 300 UNITS/3 ML VIAL SQ SCH ×7 (00:24→23:42)
[2017-04-14] MEDS: Piperacillin/Tazobactam 3.375 GM/200 ML BAG IVPB SCH (03:50)
[2017-04-14] MEDS: *HR* Morphine 2 MG/ML SYRINGE IVP PRN ×3 (03:57→19:34)
[2017-04-14] MEDS: Ipratropium/Albuterol Neb 3 ML IH SCH ×5 (04:00→20:33)
[2017-04-14 04:36] LABS: Calcium 9.5 mg/dL (8.6-10.8); Magnesium 1.6 mg/dL (1.6-2.6); Phosphorous 3.6 mg/dL (2.3-4.7); Potassium 3.5 mEq/L (3.5-4.5)
[2017-04-14] MEDS: *HR* Heparin 5,000 UNIT/ML VIAL SQ SCH ×2 (05:08→17:11)
--- NOTE | 2017-04-14 07:57 | Palliative Progress Note ---
<Claudio Correa - Last Filed: 04/14/17 07:53> Date of Encounter: 04/14/17 Time of Encounter: 07:54 - Assessment and plan (1) Goals of care, counseling/discussion Current Visit: Yes Status: Acute Assessment and plan: CODE STATUS established as DNR-CCA, w/ SHORT TERM INTUBATION allowed (2) Ileus Current Visit: Yes Status: Acute Assessment and plan: With enemas, patient has cleared moderate amounts of soft to loose stools Bowel sounds have returned Starting scheduled Dulcolax suppository Recommend Reglan or another pro-kinetic agent when concern for obstruction, as compared to ileus, is less When patient is able to start PO intake, recommend scheduled senna (3) Chronic respiratory failure with hypoxia and hypercapnia Current Visit: Yes Status: Chronic Assessment and plan: Management per primary team (4) Abdominal pain Current Visit: Yes Status: Acute Assessment and plan: Morphine 2 mg IVP PRN given 3 times in the last 24 hours Qualifiers: Abdominal location: generalized Qualified Code(s): R10.84 - Generalized abdominal pain - Time Spent With Patient Total time spent is greater than 50% in coordination of care (as documented) at patient's floor/unit and/or counseling patient: less than 15 minutes - Subjective Interval history: Patient continues to have bowel movements, though the frequency has slowed somewhat since yesterday. - Constitutional Vitals: Abnormal lab results RBC 3.50 M/mcL (3.82-4.97) L 04/11/17 08:30 Hgb 10.3 g/dL (11.5-15.4) L D 04/11/17 08:30 Hct 33.2 % (35.3-44.9) L 04/11/17 08:30 MCHC 31.0 g/dL (31.6-35.5) L 04/11/17 08:30 RDW 14.6 % (11.5-14.5) H 04/11/17 08:30 MPV 9.0 fL (9.4-12.4) L 04/11/17 08:30 Band Neutrophils % 10.0 % (0-4) H 04/05/17 00:24 Neutrophils # 14.7 K/mcL (1.6-8.9) H 04/08/17 10:02 Lymphocytes # 0.4 K/mcL (0.6-4.6) L 04/08/17 10:02 Nucleated RBCs/100 WBC 0.1 /100 WBC (0) H 04/05/17 00:24 ABG pCO2 62 mmHg (35-45) H 04/09/17 11:06 ABG pO2 53 mmHg (85-104) L 04/09/17 11:06 ABG HCO3 37 mEq/L (21-27) H 04/09/17 11:06 ABG Total CO2 39 mEq/L (20-26) H 04/09/17 11:06 ABG O2 Saturation 85 % (95-98) L 04/09/17 11:06 ABG Base Excess 10 mEq/L (-2 to 3) H 04/09/17 11:06 Sodium 150 mEq/L (136-145) H 04/14/17 03:25 Chloride 110 mEq/L (98-109) H 04/14/17 03:25 Carbon Dioxide 34 mEq/L (19-29) H 04/14/17 03:25 BUN 82 mg/dL (7-20) H 04/14/17 03:25 Creatinine 1.65 mg/dL (0.57-1.11) H 04/14/17 03:25 Est GFR ( Amer) 39 (> 60) L 04/14/17 03:25 Est GFR (Non-Af Amer) 32 (> 60) L 04/14/17 03:25 BUN/Creatinine Ratio 50 (6-26) H 04/14/17 03:25 Glucose 217 mg/dL (70-99) H 04/14/17 03:25 POC Glucose 195 (58-89) H 04/14/17 00:22 Calculated Osmolality 341 (280-300) H 04/14/17 03:25 Uric Acid 18.8 mg/dL (2.6-6.0) H 04/09/17 18:30 Creatine Kinase 349 Units/L (29-168) H 04/09/17 18:30 Albumin 1.9 g/dL (3.5-5.0) L 04/09/17 18:30 Globulin 4.6 g/dL (2.4-3.5) H 04/09/17 18:30 Albumin/Globulin Ratio 0.4 (1.1-2.2) L 04/09/17 18:30 Prealbumin 9.0 mg/dL (16.0-38.0) L 04/11/17 04:55 Triglycerides 246 mg/dL (< 150) H 04/10/17 08:46 Ur Specific [place] 1.028 (1.010-1.025) H 04/08/17 10:08 Protein/Creatinin Ratio 0.92 mg/mg (0-0.20) H 04/11/17 08:00 Urine Total Protein 59 mg/dL (1-14) H 04/11/17 08:00 General appearance: Present: morbidly obese - Head Head exam: Present: atraumatic, normal inspection, normocephalic - Respiratory Respiratory exam: Present: CTAB - Cardiovascular Cardiovascular exam: Present: RRR, +S1, +S2 - GI/Abdominal GI/Abdominal exam: Present: normal bowel sounds, soft, tenderness (improved from yesterday) - Neurological Exam Neurological exam: Present: alert - Psychiatric Psychiatric exam: Present: normal affect, normal mood - Skin Skin exam: Present: dry, warm Palliative Quality Palliative Quality: Screen for Code Status: Yes, Screen for Goals of Care: Yes, Screen for Pain: Yes, If Pain Regimen Started, Initiate Bowel Regimen: Yes, Screen for Nausea/Vomitting: Yes Code Status: 04/04/17 23:14 Resuscitation Status: Active [RES] Routine Comment: Resuscitation Status: Full Code 04/13/17 10:32 Resuscitation Status: Active [RES] Routine Comment: Resuscitation Status: DNR-Comfort Care-Arrest - Labs CBC & Chem 7: 04/11/17 08:30 04/14/17 03:25 Labs: Laboratory Results - last 24 hr 04/13/17 04/13/17 04/13/17 03:51 07:50 12:08 Sodium Potassium Chloride Carbon Dioxide BUN Creatinine Est GFR ( Amer) Est GFR (Non-Af Amer) BUN/Creatinine Ratio Glucose POC Glucose 228 H 223 H 182 H Calculated Osmolality Calcium Phosphorus Magnesium 04/13/17 04/13/17 04/14/17 16:14 19:43 00:22 Sodium Potassium Chloride Carbon Dioxide BUN Creatinine Est GFR ( Amer) Est GFR (Non-Af Amer) BUN/Creatinine Ratio Glucose POC Glucose 147 H 137 H 195 H Calculated Osmolality Calcium Phosphorus Magnesium 04/14/17 03:25 Sodium 150 H Potassium 3.5 Chloride 110 H Carbon Dioxide 34 H BUN 82 H Creatinine 1.65 H Est GFR ( Amer) 39 L Est GFR (Non-Af Amer) 32 L BUN/Creatinine Ratio 50 H Glucose 217 H POC Glucose Calculated Osmolality 341 H Calcium 9.5 Phosphorus 3.6 Magnesium 1.6 - ABG Interpretation ABG results: ABG ABG pH 7.39 pH Units (7.32-7.45) 04/09/17 11:06 ABG pCO2 62 mmHg (35-45) H 04/09/17 11:06 ABG pO2 53 mmHg (85-104) L 04/09/17 11:06 ABG O2 Saturation 85 % (95-98) L 04/09/17 11:06 Consult Discharge Plan - Plan Referrals: Dimitris Villaseñor, JARRETT [Primary Care Provider] - (sent web request on 04-10-17 @ 3025) <Jagdeep Solitario - Last Filed: 04/14/17 08:55> Date of Encounter: 04/14/17 - Time Spent With Patient Total time spent is greater than 50% in coordination of care (as documented) at patient's floor/unit and/or counseling patient: - Constitutional Vitals: Abnormal lab results RBC 3.50 M/mcL (3.82-4.97) L 04/11/17 08:30 Hgb 10.3 g/dL (11.5-15.4) L D 04/11/17 08:30 Hct 33.2 % (35.3-44.9) L 04/11/17 08:30 MCHC 31.0 g/dL (31.6-35.5) L 04/11/17 08:30 RDW 14.6 % (11.5-14.5) H 04/11/17 08:30 MPV 9.0 fL (9.4-12.4) L 04/11/17 08:30 Band Neutrophils % 10.0 % (0-4) H 04/05/17 00:24 Neutrophils # 14.7 K/mcL (1.6-8.9) H 04/08/17 10:02 Lymphocytes # 0.4 K/mcL (0.6-4.6) L 04/08/17 10:02 Nucleated RBCs/100 WBC 0.1 /100 WBC (0) H 04/05/17 00:24 ABG pCO2 62 mmHg (35-45) H 04/09/17 11:06 ABG pO2 53 mmHg (85-104) L 04/09/17 11:06 ABG HCO3 37 mEq/L (21-27) H 04/09/17 11:06 ABG Total CO2 39 mEq/L (20-26) H 04/09/17 11:06 ABG O2 Saturation 85 % (95-98) L 04/09/17 11:06 ABG Base Excess 10 mEq/L (-2 to 3) H 04/09/17 11:06 Sodium 150 mEq/L (136-145) H 04/14/17 03:25 Chloride 110 mEq/L (98-109) H 04/14/17 03:25 Carbon Dioxide 34 mEq/L (19-29) H 04/14/17 03:25 BUN 82 mg/dL (7-20) H 04/14/17 03:25 Creatinine 1.65 mg/dL (0.57-1.11) H 04/14/17 03:25 Est GFR ( Amer) 39 (> 60) L 04/14/17 03:25 Est GFR (Non-Af Amer) 32 (> 60) L 04/14/17 03:25 BUN/Creatinine Ratio 50 (6-26) H 04/14/17 03:25 Glucose 217 mg/dL (70-99) H 04/14/17 03:25 POC Glucose 195 (58-89) H 04/14/17 00:22 Calculated Osmolality 341 (280-300) H 04/14/17 03:25 Uric Acid 18.8 mg/dL (2.6-6.0) H 04/09/17 18:30 Creatine Kinase 349 Units/L (29-168) H 04/09/17 18:30 Albumin 1.9 g/dL (3.5-5.0) L 04/09/17 18:30 Globulin 4.6 g/dL (2.4-3.5) H 04/09/17 18:30 Albumin/Globulin Ratio 0.4 (1.1-2.2) L 04/09/17 18:30 Prealbumin 9.0 mg/dL (16.0-38.0) L 04/11/17 04:55 Triglycerides 246 mg/dL (< 150) H 04/10/17 08:46 Ur Specific [place] 1.028 (1.010-1.025) H 04/08/17 10:08 Protein/Creatinin Ratio 0.92 mg/mg (0-0.20) H 04/11/17 08:00 Urine Total Protein 59 mg/dL (1-14) H 04/11/17 08:00 - Attending Attestation I examined this patient and my medical decision-making was reviewed with the Resident Physician. I agree with the documented findings, disposition and treatment plan as described except to the extent set forth below. Since patient's bowels appear to be getting better. I would hold off on Relistor at this time. I think Reglan can be used at this point will just make a recommendation as there may be other considerations that I am unaware of. Since CODE STATUS and goals of care have been established. Palliative Quality Code Status: 04/04/17 23:14 Resuscitation Status: Active [RES] Routine Comment: Resuscitation Status: Full Code 04/13/17 10:32 Resuscitation Status: Active [RES] Routine Comment: Resuscitation Status: DNR-Comfort Care-Arrest - Labs CBC & Chem 7: 04/11/17 08:30 04/14/17 03:25 Labs: Laboratory Results - last 24 hr 04/13/17 04/13/17 04/13/17 03:51 12:08 16:14 Sodium Potassium Chloride Carbon Dioxide BUN Creatinine Est GFR ( Amer) Est GFR (Non-Af Amer) BUN/Creatinine Ratio Glucose POC Glucose 228 H 182 H 147 H Calculated Osmolality Calcium Phosphorus Magnesium 04/13/17 04/14/17 04/14/17 19:43 00:22 03:25 Sodium 150 H Potassium 3.5 Chloride 110 H Carbon Dioxide 34 H BUN 82 H Creatinine 1.65 H Est GFR ( Amer) 39 L Est GFR (Non-Af Amer) 32 L BUN/Creatinine Ratio 50 H Glucose 217 H POC Glucose 137 H 195 H Calculated Osmolality 341 H Calcium 9.5 Phosphorus 3.6 Magnesium 1.6 - ABG Interpretation ABG results: ABG ABG pH 7.39 pH Units (7.32-7.45) 04/09/17 11:06 ABG pCO2 62 mmHg (35-45) H 04/09/17 11:06 ABG pO2 53 mmHg (85-104) L 04/09/17 11:06 ABG O2 Saturation 85 % (95-98) L 04/09/17 11:06
[2017-04-14] MEDS: Budesonide/Formoterol 160/4.5 MDI IH SCH ×2 (08:08→20:33)
[2017-04-14] MEDS: Levothyroxine Sodium 100 MCG VIAL IVP SCH (09:38)
[2017-04-14] MEDS: Bisacodyl 10 MG RECTAL SUPPOSITORY RC SCH (09:39)
[2017-04-14] MEDS: Nicotine 21 MG PATCH.TD24 TD SCH (09:39)
[2017-04-14] MEDS: Insulin DETEMIR 100 UNIT/ML X5UNITS SQ SCH ×2 (09:40→19:44)
--- NOTE | 2017-04-14 10:29 | Pulmonology Progress Note ---
Date of Encounter: 04/14/17 Time of Encounter: 10:30 Assessment and Plan (1) Acute and chronic respiratory failure ([id number]) Current Visit: Yes Status: Acute Patient has both acute on chronic hypoxic and hypercarbic respiratory failure due to COPD and some component of hypoventilation acute decompensation of her hypoxic respiratory failure is due to V/Q mismatch caused most likely due to basliar atelectasis due to splinting of diaphragm because of her distended abdomen in the setting of small bowel obstruction /ileus now she passed stools no nausea or vomitting still has lot of OG output will continue BIPAP as patient is tolerating her , once her ileus getting better will do BIPAP qualification . Give breaks during the day then BIPAP at night. Patient is frustrated , she is very non compliant will need placement for rehab will need active participation from physical therapy. Qualifiers: Respiratory failure complication: hypoxia and hypercapnia Qualified Code(s) : J96.21 - Acute and chronic respiratory failure with hypoxia; J96.22 - Acute and chronic respiratory failure with hypercapnia; J96.22 - Acute and chronic respiratory failure with hypercapnia; J96.22 - Acute and chronic respiratory failure with hypercapnia (2) Tracheomalacia, acquired Current Visit: Yes Status: Chronic Encouraged to sit her up on BIPAP if off BIPAP encouraged incentive Spirometry. Counseled her family who was with her to encourage sit and do more incentive spirometry . (3) COPD (chronic obstructive pulmonary disease) Current Visit: Yes Status: Chronic To continue the current regimen of bronchodilators. We can deescalate antibiotics. Qualifiers: COPD type: unspecified COPD Qualified Code(s): J44.9 - Chronic obstructive pulmonary disease, unspecified Subjective Principal diagnosis: Small bowel obstruction Interval history: 61 year old female followed by pulmonary for acute on chronic hypoxic and hypercarbic respiratory failure. Patient says her symptoms are lot better. She doesnt move around much lying in bed , still has ileus with lot of NG output , denies any cough with sputum production , denies any fever or chills . Asking to eat . Objective PUL Vital signs: Last Vital Signs Temp 99.1 F 04/14/17 07:58 Pulse 81 04/14/17 10:05 Resp 20 04/14/17 10:05 BP 157/77 04/14/17 07:58 Pulse Ox 96 04/14/17 10:05 Auscultation: bilateral: diminished breath sounds Gastrointestinal: other (distended ) Results - Laboratory Findings CBC and BMP: 04/11/17 08:30 04/14/17 03:25 ABG ABG pH 7.39 pH Units (7.32-7.45) 04/09/17 11:06 ABG pCO2 62 mmHg (35-45) H 04/09/17 11:06 ABG pO2 53 mmHg (85-104) L 04/09/17 11:06 ABG O2 Saturation 85 % (95-98) L 04/09/17 11:06 Abnormal lab findings: Abnormal lab results RBC 3.50 M/mcL (3.82-4.97) L 04/11/17 08:30 Hgb 10.3 g/dL (11.5-15.4) L D 04/11/17 08:30 Hct 33.2 % (35.3-44.9) L 04/11/17 08:30 MCHC 31.0 g/dL (31.6-35.5) L 04/11/17 08:30 RDW 14.6 % (11.5-14.5) H 04/11/17 08:30 MPV 9.0 fL (9.4-12.4) L 04/11/17 08:30 Band Neutrophils % 10.0 % (0-4) H 04/05/17 00:24 Neutrophils # 14.7 K/mcL (1.6-8.9) H 04/08/17 10:02 Lymphocytes # 0.4 K/mcL (0.6-4.6) L 04/08/17 10:02 Nucleated RBCs/100 WBC 0.1 /100 WBC (0) H 04/05/17 00:24 ABG pCO2 62 mmHg (35-45) H 04/09/17 11:06 ABG pO2 53 mmHg (85-104) L 04/09/17 11:06 ABG HCO3 37 mEq/L (21-27) H 04/09/17 11:06 ABG Total CO2 39 mEq/L (20-26) H 04/09/17 11:06 ABG O2 Saturation 85 % (95-98) L 04/09/17 11:06 ABG Base Excess 10 mEq/L (-2 to 3) H 04/09/17 11:06 Sodium 150 mEq/L (136-145) H 04/14/17 03:25 Chloride 110 mEq/L (98-109) H 04/14/17 03:25 Carbon Dioxide 34 mEq/L (19-29) H 04/14/17 03:25 BUN 82 mg/dL (7-20) H 04/14/17 03:25 Creatinine 1.65 mg/dL (0.57-1.11) H 04/14/17 03:25 Est GFR ( Amer) 39 (> 60) L 04/14/17 03:25 Est GFR (Non-Af Amer) 32 (> 60) L 04/14/17 03:25 BUN/Creatinine Ratio 50 (6-26) H 04/14/17 03:25 Glucose 217 mg/dL (70-99) H 04/14/17 03:25 POC Glucose 195 (58-89) H 04/14/17 00:22 Calculated Osmolality 341 (280-300) H 04/14/17 03:25 Uric Acid 18.8 mg/dL (2.6-6.0) H 04/09/17 18:30 Creatine Kinase 349 Units/L (29-168) H 04/09/17 18:30 Albumin 1.9 g/dL (3.5-5.0) L 04/09/17 18:30 Globulin 4.6 g/dL (2.4-3.5) H 04/09/17 18:30 Albumin/Globulin Ratio 0.4 (1.1-2.2) L 04/09/17 18:30 Prealbumin 9.0 mg/dL (16.0-38.0) L 04/11/17 04:55 Triglycerides 246 mg/dL (< 150) H 04/10/17 08:46 Ur Specific [place] 1.028 (1.010-1.025) H 04/08/17 10:08 Protein/Creatinin Ratio 0.92 mg/mg (0-0.20) H 04/11/17 08:00 Urine Total Protein 59 mg/dL (1-14) H 04/11/17 08:00 - Clinical Findings Intake & Output: Intake & Output 04/13/17 04/14/17 04/14/17 23:59 07:59 15:59 Intake Total 200 / 200 Output Total 1250 / 1250 720 / 720 Balance -1050 / -1050 -720 / -720 Weight 133.4 kg Consult Discharge Plan - Plan Referrals: Dimitris Villaseñor CNP [Primary Care Provider] - (sent web request on 04-10-17 @ 0431)
--- NOTE | 2017-04-14 10:43 | Internal Med Progress Note ---
Date of Encounter: 04/14/17 Time of Encounter: 10:41 - Assessment and plan (1) Constipation Current Visit: Yes Status: Acute Assessment and plan: Severe constipation, possible small bowel obstruction Continue NG tube and TPN Dulcolax administered with partial results Continue tap water enemas BID ( need to be ordered daily), may start GoLYTELY ( suggested by GI) when there is no NG tube output Surgery will not intervene due to her poor recovery/condition/ventilation status Palliative care consulted, DNRcc, would accept intubation Qualifiers: Constipation type: drug induced constipation Qualified Code(s): K59.03 - Drug induced constipation (2) Ileus Current Visit: Yes Status: Acute (3) CKD (chronic kidney disease) stage 4, GFR 15-29 ml/min Current Visit: Yes Status: Acute Assessment and plan: Acute chronic renal failure Improving, discontinue IV fluids due to overload start IV lasix 40 mg daily (4) COPD (chronic obstructive pulmonary disease) Current Visit: No Status: Chronic Assessment and plan: History of acute on chronic respiratory failure likely secondary to COPD and a component of hypoventilation syndrome/acute decompensation due to VQ mismatch and obesity Pulmonary service recommended to continue bronchodilators and antibiotic therapy , discontinue Zosyn at day 10 Qualifiers: COPD type: emphysema Emphysema type: unspecified Qualified Code(s): J43.9 - Emphysema, unspecified (5) History of DVT (deep vein thrombosis) Current Visit: No Status: Chronic (6) Acute and chronic respiratory failure ([id number]) Current Visit: Yes Status: Acute Qualifiers: Respiratory failure complication: hypoxia and hypercapnia Qualified Code(s) : J96.21 - Acute and chronic respiratory failure with hypoxia; J96.22 - Acute and chronic respiratory failure with hypercapnia; J96.22 - Acute and chronic respiratory failure with hypercapnia; J96.22 - Acute and chronic respiratory failure with hypercapnia (7) Tracheomalacia, acquired Current Visit: Yes Status: Chronic (8) Diabetes mellitus Current Visit: No Status: Chronic Assessment and plan: with hyperglycemia due to TPN increased levemir to 20 u bid Continue insulin sliding scale Qualifiers: Diabetes mellitus type: type 2 Diabetes mellitus complication status: with kidney complications Diabetes mellitus complication detail: with chronic kidney disease Diabetes mellitus long term care administrator insulin use: with long term care administrator use Chronic kidney disease stage: stage 3 (moderate) Qualified Code(s): E11.22 - Type 2 diabetes mellitus with diabetic chronic kidney disease; N18.3 - Chronic kidney disease, stage 3 (moderate); N18.3 - Chronic kidney disease, stage 3 ( moderate); Z79.4 - correction (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 of insulin; Z79.4 - long term care administrator ( 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 of insulin; Z79.4 - long term care administrator (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 of insulin; Z79.4 - correction (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 of insulin (9) Hypernatremia Current Visit: Yes Status: Acute Assessment and plan: monitor, may satar D5 if less volume overloaded - Subjective Interval history: Less somnolent, was interacting more per family, denies CP , feels SOB, has abdominal pain , had a BM this morning according to her RN, NG tube draining dark material - Constitutional Vitals: Temp Pulse Resp BP Pulse Ox 99.1 F 81 20 157/77 96 04/14/17 07:58 04/14/17 10:05 04/14/17 10:05 04/14/17 07:58 04/14/17 10:05 General appearance: Present: A&O X 3, morbidly obese, no acute distress Exam: - Head Head exam: Present: atraumatic, normocephalic - Eye Eye exam: Present: PERRL, conjuntiva pink, sclera anicteric Pupils: Present: PERRL - Neck Neck exam general surgery: Present: supple, trachea midline. Absent: lymphadenopathy - Respiratory Respiratory exam: Present: decreased breath sounds, CTAB. Absent: accessory muscle use, rales, rhonchi, wheezes - Cardiovascular Cardiovascular exam: Present: RRR, +S1, +S2. Absent: diastolic murmur, gallop, rubs, systolic murmur - GI/Abdominal GI/Abdominal exam: Present: distended, normal bowel sounds, soft, tenderness, no peritoneal signs - Extremities Exam Extremities exam: Present: warm, radial pulses palpable and symmetrical. Absent : calf tenderness, cyanotic, pedal edema - Neurological Exam Neurological exam: Present: CN II-XII intact, oriented X3, no focal deficits. Absent: pronater drift, facial droop, speech deficit - Skin Skin exam: Present: dry, intact Additional comments: NG tube in place Internal Medicine: Result - Labs CBC & Chem 7: 04/11/17 08:30 04/14/17 03:25 Labs: BMP 04/14/17 03:25 Sodium 150 H Potassium 3.5 Chloride 110 H Carbon Dioxide 34 H BUN 82 H Creatinine 1.65 H Glucose 217 H Calcium 9.5 - ABG Interpretation ABG results: ABG ABG pH 7.39 pH Units (7.32-7.45) 04/09/17 11:06 ABG pCO2 62 mmHg (35-45) H 04/09/17 11:06 ABG pO2 53 mmHg (85-104) L 04/09/17 11:06 ABG O2 Saturation 85 % (95-98) L 04/09/17 11:06 Consult Discharge Plan - Plan Referrals: Dimitris Villaseñor, WEB PRODUCTION MANAGER [Primary Care Provider] - (sent web request on 04-10-17 @ 1942)
[2017-04-14] MEDS ORDERED: D5% in 0.45% NACL 1,000 ML IVC ONE (11:28)
[2017-04-14] MEDS ORDERED: Furosemide 40 MG/4 ML VIAL ONE (11:29)
[2017-04-14] MEDS: D5% in 0.45% NACL 1,000 ML IVC SCH (11:31)
[2017-04-14] MEDS: Furosemide 40 MG/4 ML VIAL IVP SCH (11:32)
[2017-04-14] MEDS ORDERED: Clinimix E 5%-15% SOLUTION 2,000 ML with MVI, adult with vitamin K 10 ML, Insulin Hum... IVC SCH (17:00)
[2017-04-15] MEDS: Ipratropium/Albuterol Neb 3 ML IH SCH ×7 (00:17→23:50)
[2017-04-15] MEDS: D5% in 0.45% NACL 1,000 ML IVC SCH ×2 (00:22→11:55)
[2017-04-15] MEDS: Insulin LISPRO 300 UNITS/3 ML VIAL SQ SCH ×5 (04:22→20:48)
[2017-04-15] MEDS: *HR* Morphine 2 MG/ML SYRINGE IVP PRN ×4 (04:28→20:28)
[2017-04-15 04:31] LABS: Hematocrit 28.9 % (35.3-44.9); Mean Corpuscular HGB Conc 30.1 g/dL (31.6-35.5); Mean Corpuscular Hemoglobin 29.3 pg (28.0-33.3); Mean Corpuscular Volume 97.3 fL (83.0-100.0); Mean Platelet Volume 9.5 fL (9.4-12.4); Platelet Count 130 K/mcL (140-400); Red Blood Count 2.97 M/mcL (3.82-4.97); Red Cell Distribution Width 14.6 % (11.5-14.5)
[2017-04-15 04:32] LABS: Hemoglobin 8.7 g/dL (11.5-15.4)
[2017-04-15 04:39] LABS: Calcium 9.4 mg/dL (8.6-10.8); Magnesium 1.3 mg/dL (1.6-2.6); Phosphorous 3.7 mg/dL (2.3-4.7); Potassium 3.2 mEq/L (3.5-4.5)
[2017-04-15] MEDS: *HR* Heparin 5,000 UNIT/ML VIAL SQ SCH ×2 (05:03→18:38)
[2017-04-15] MEDS: Nicotine 21 MG PATCH.TD24 TD SCH (09:36)
[2017-04-15] MEDS: Levothyroxine Sodium 100 MCG VIAL IVP SCH (09:36)
[2017-04-15] MEDS: Furosemide 40 MG/4 ML VIAL IVP SCH (09:36)
[2017-04-15] MEDS: Bisacodyl 10 MG RECTAL SUPPOSITORY RC SCH (09:38)
[2017-04-15] MEDS: Insulin DETEMIR 100 UNIT/ML X5UNITS SQ SCH ×2 (09:50→20:28)
[2017-04-15] MEDS: Budesonide/Formoterol 160/4.5 MDI IH SCH ×2 (10:52→20:41)
--- NOTE | 2017-04-15 14:09 | Internal Med Progress Note ---
<Earl Flores - Last Filed: 04/15/17 15:47> Date of Encounter: 04/15/17 Time of Encounter: 14:09 - Assessment and plan (1) Hypernatremia Current Visit: Yes Status: Acute Assessment and plan: Sodium 152, hypernatremia worsening likely secondary to NG tube suction, no oral intake. She currently on D5 half normal saline. Receiving TPN. Plan: - Stop D5 half normal saline and start D5 at 100 mL's per hour. - Turn NG tube suction. If patient tolerates overnight start clear liquids including free water orally. (2) Constipation Current Visit: Yes Status: Acute Assessment and plan: Severe constipation versus ileus, patient currently having bowel movements, NG tube continues to have 1.4 L nasal suction. - Turn suction off NG tube, monitor overnight. If patient tolerates will restart clear liquids in the morning. - Start IV Reglan 10 mg every 6 hours to stimulate gastric/colonic motility. - Continue water enemas, patient is having bowel movements. Surgery will not intervene due to her poor recovery/condition/ventilation status Qualifiers: Constipation type: drug induced constipation Qualified Code(s): K59.03 - Drug induced constipation (3) Ileus Current Visit: Yes Status: Acute Assessment and plan: As discussed above. (4) Acute kidney injury superimposed on chronic kidney disease Current Visit: Yes Status: Acute Assessment and plan: Prerenal acute kidney injury superimposed on Chronic stage III kidney disease, improving with creatinine of 1.14 and GFR 49 today. - Continue to monitor daily - Avoid nephrotoxic medications and renally dose antibiotics. - Strict intake and output monitoring. (5) COPD (chronic obstructive pulmonary disease) Current Visit: Yes Status: Chronic Assessment and plan: History of COPD with previous COPD exacerbations. Component of hypoventilation syndrome. Continue bronchodilators, and wean oxygen as tolerated to baseline. Qualifiers: COPD type: unspecified COPD Qualified Code(s): J44.9 - Chronic obstructive pulmonary disease, unspecified (6) Type 2 diabetes mellitus Current Visit: Yes Status: Acute Assessment and plan: Uncontrolled Type II DM. Patient receiving TPN due to ileus and NG tube on suction. Plan: -Continue Levemir 20 units twice a day - Continue high-dose inpatient sliding scale. - Continue before meals and at bedtime glucose checks Qualifiers: Diabetes mellitus complication status: without complication Diabetes mellitus dedicated intermodal truck driver insulin use: with dedicated intermodal truck driver use Qualified Code(s): E11.9 - Type 2 diabetes mellitus without complications; Z79.4 - penitentiary (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 of insulin; Z79.4 - truck terminal manager (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 of insulin; Z79.4 - truck terminal manager ( 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 of insulin; Z79.4 - truck terminal manager (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 of insulin (7) DVT prophylaxis Current Visit: No Status: Acute Assessment and plan: Continue subcutaneous heparin. - Subjective Interval history: Ms. Yang 61 yo female has been seen and evaluated patient bedside this morning. She is alert awake and interactive. NG tube is in place on suction with greenish output. She describes irritation with her NG tube and some abdominal discomfort but is having bowel movements and says that she is hungry. She is tolerating TPN nutrition. No other significant concerns at this time. - Constitutional Vitals: Temp Pulse Resp BP Pulse Ox 98.1 F 85 20 151/81 93 04/15/17 11:36 04/15/17 11:45 04/15/17 11:36 04/15/17 11:36 04/15/17 11:45 General appearance: Present: A&O X 3, morbidly obese, no acute distress - Head Head exam: Present: atraumatic, normocephalic - Eye Eye exam: Present: PERRL, conjuntiva pink, sclera anicteric Pupils: Present: PERRL - ENT Additional comments: NG tube in place. Greenish content and suction container. - Neck Neck exam general surgery: Present: supple, trachea midline. Absent: lymphadenopathy - Respiratory Respiratory exam: Present: CTAB. Absent: accessory muscle use, rales, rhonchi, wheezes - Cardiovascular Cardiovascular exam: Present: RRR, +S1, +S2. Absent: diastolic murmur, gallop, rubs, systolic murmur - GI/Abdominal GI/Abdominal exam: Present: distended, normal bowel sounds, tenderness, no peritoneal signs Additional comments: Abdominal bloating. - Extremities Exam Extremities exam: Present: warm, radial pulses palpable and symmetrical. Absent : calf tenderness, cyanotic, pedal edema - Neurological Exam Neurological exam: Present: CN II-XII intact, oriented X3, no focal deficits. Absent: pronater drift, facial droop, speech deficit - Skin Skin exam: Present: dry, intact Internal Medicine: Result - Labs CBC & Chem 7: 04/15/17 04:10 04/15/17 04:10 Labs: Short CBC 04/15/17 Range/Units 04:10 WBC 10.0 (4.3-11.1) K/mcL Hgb 8.7 L D (11.5-15.4) g/dL Hct 28.9 L (35.3-44.9) % Plt Count 130 L (140-400) K/mcL BMP 04/15/17 04:10 Sodium 152 H Potassium 3.2 L Chloride 107 Carbon Dioxide 37 H BUN 66 H Creatinine 1.14 H Glucose 231 H Calcium 9.4 - ABG Interpretation ABG results: ABG ABG pH 7.39 pH Units (7.32-7.45) 04/09/17 11:06 ABG pCO2 62 mmHg (35-45) H 04/09/17 11:06 ABG pO2 53 mmHg (85-104) L 04/09/17 11:06 ABG O2 Saturation 85 % (95-98) L 04/09/17 11:06 Consult Discharge Plan - Plan Referrals: Dimitris Villaseñor CNP [Primary Care Provider] - 04/19/17 11:00 am () <Ra Turner - Last Filed: 04/15/17 17:24> Date of Encounter: 04/15/17 - Assessment and plan (1) Leucocytosis Current Visit: No Status: Acute Qualifiers: Leukocytosis type: bandemia Qualified Code(s): D72.825 - Bandemia (2) Weakness Current Visit: No Status: Acute (3) Diabetes mellitus Current Visit: No Status: Chronic Qualifiers: Diabetes mellitus type: type 2 Diabetes mellitus complication status: with kidney complications Diabetes mellitus complication detail: with chronic kidney disease Diabetes mellitus dedicated intermodal truck driver insulin use: with dedicated intermodal truck driver use Chronic kidney disease stage: stage 3 (moderate) Qualified Code(s): E11.22 - Type 2 diabetes mellitus with diabetic chronic kidney disease; N18.3 - Chronic kidney disease, stage 3 (moderate); N18.3 - Chronic kidney disease, stage 3 ( moderate); Z79.4 - truck terminal manager (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 of insulin; Z79.4 - truck terminal manager ( 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 of insulin; Z79.4 - penitentiary (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 of insulin; Z79.4 - truck terminal manager (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 of insulin (4) Hypertension Current Visit: No Status: Chronic Qualifiers: Hypertension type: essential hypertension Qualified Code(s): I10 - Essential (primary) hypertension (5) COPD (chronic obstructive pulmonary disease) Current Visit: No Status: Chronic Qualifiers: COPD type: emphysema Emphysema type: unspecified Qualified Code(s): J43.9 - Emphysema, unspecified (6) Tobacco use Current Visit: No Status: Chronic (7) Acute kidney injury Current Visit: No Status: Acute (8) Chronic respiratory failure with hypoxia and hypercapnia Current Visit: Yes Status: Chronic (9) HCAP (healthcare-associated pneumonia) Current Visit: No Status: Acute (10) Type 2 diabetes mellitus Current Visit: Yes Status: Acute Qualifiers: Diabetes mellitus complication status: without complication Diabetes mellitus dedicated intermodal truck driver insulin use: with dedicated intermodal truck driver use Qualified Code(s): E11.9 - Type 2 diabetes mellitus without complications; Z79.4 - truck terminal manager (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 of insulin; Z79.4 - truck terminal manager (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 of insulin; Z79.4 - truck terminal manager ( 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 of insulin; Z79.4 - penitentiary (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 of insulin - Constitutional Vitals: Temp Pulse Resp BP Pulse Ox 97.4 F L 79 18 105/90 94 04/15/17 15:45 04/15/17 15:45 04/15/17 16:13 04/15/17 15:45 04/15/17 16:13 Internal Medicine: Result - Labs CBC & Chem 7: 04/15/17 04:10 04/15/17 04:10 Labs: Short CBC 04/15/17 Range/Units 04:10 WBC 10.0 (4.3-11.1) K/mcL Hgb 8.7 L D (11.5-15.4) g/dL Hct 28.9 L (35.3-44.9) % Plt Count 130 L (140-400) K/mcL BMP 04/15/17 04:10 Sodium 152 H Potassium 3.2 L Chloride 107 Carbon Dioxide 37 H BUN 66 H Creatinine 1.14 H Glucose 231 H Calcium 9.4 - ABG Interpretation ABG results: ABG ABG pH 7.39 pH Units (7.32-7.45) 04/09/17 11:06 ABG pCO2 62 mmHg (35-45) H 04/09/17 11:06 ABG pO2 53 mmHg (85-104) L 04/09/17 11:06 ABG O2 Saturation 85 % (95-98) L 04/09/17 11:06 - Attending Attestation I examined this patient and my medical decision-making was reviewed with the Resident Physician. I agree with the documented findings, disposition and treatment plan as described except to the extent set forth below.
--- NOTE | 2017-04-15 15:21 | Event Note ---
Date of Encounter: 04/15/17 Time of Encounter: 15:10 Patient code status clarified at DNRCC - A, desires short term intubation. Goals of care to receive medical interventions for constipation and will likely need bipap qualification prior to DC. Patient NG clamped and having small BMs. Continuing bowel regimen. Pallitive care will follow her from a distance. Please call with any needs. Thank you for the consult.
[2017-04-15] MEDS: D5% in Water 1,000 ML IVC SCH (16:37)
[2017-04-15] MEDS ORDERED: VITAMIN K IVC SCH (17:00)
[2017-04-15] MEDS ORDERED: AMINO ACIDS IVC SCH (17:00)
[2017-04-15] MEDS ORDERED: MVI IVC SCH (17:00)
[2017-04-15] MEDS ORDERED: [UNRECOGNIZED DRUG - OTHER] IVC SCH (17:00)
[2017-04-15] MEDS ORDERED: DEXTROSE 15% IVC SCH (17:00)
--- NOTE | 2017-04-15 18:37 | Nephrology Progress Note ---
Date of Encounter: 04/15/17 Time of Encounter: 17:40 - Assessment and Plan (1) Acute kidney injury superimposed on chronic kidney disease Status: Resolved GUERRERO continues to nicely improve. However she has hypernatremia from a worsening Free Water Deficit while on TPN. Agree with D5W. Hypokalemia: replete No need for SR. OPERATIONS MANAGER at this time. Will sign-off, but please free free to reconsult as needed. Thank you. Continue to follow a renal protective strategy: dose renally cleared Rx by GFR. Avoid Nephrotoxins. I would recommend that she follow-up as an outpatient with nephrology in about 4 -[address] looks like Dr. Acevedo first saw her, so please have her follow up with him. Thank you. (2) COPD exacerbation Status: Acute As per primary (3) Acute kidney injury Status: Acute See above (4) Hypernatremia Status: Acute Fluid deficit most likely from the TPN: agree with D5W. Monitor volume status and avoid rapid corrections. Subjective Principal diagnosis: Small bowel obstruction Interval history: Pt was seen/examined and she did not affirm N/V/D or F/C. She has been receiving TPN and it was already adjusted per the Floor RN to include D5W, she said. Objective - Vital Signs Vital signs: Vital Signs Temp Pulse Resp BP Pulse Ox 04/15/17 16:13 18 94 04/15/17 15:45 97.4 F L 79 22 105/90 93 04/15/17 11:45 85 93 04/15/17 11:36 98.1 F 84 20 151/81 97 04/15/17 11:01 16 95 04/15/17 09:30 84 152/65 93 04/15/17 08:05 12 97 04/15/17 07:31 97.9 F 68 22 166/71 99 04/15/17 04:17 97.7 F 82 22 138/72 96 04/15/17 04:05 76 15 138/72 97 04/15/17 00:17 15 117/79 98 04/14/17 23:37 94 04/14/17 23:25 97.7 F 92 16 117/79 97 04/14/17 22:37 18 135/60 98 04/14/17 20:33 17 135/60 97 04/14/17 19:49 88 04/14/17 19:25 97.9 F 92 20 135/60 97 Intake and Output 04/15/17 04/15/17 04/15/17 07:59 15:59 23:59 Intake Total 1000 / 1000 1187 / 1187 350 / 350 Output Total 850 / 850 1600 / 1600 Balance 150 / 150 -413 / -413 350 / 350 Intake: IV Fluids 1000 / 1000 950 / 950 350 / 350 D5% And 0.45% Nacl 1000 Ml Bag 1000 / 1000 950 / 950 350 / 350 1,000 ML @ 75 mls/hr IVC . [id number] LEONA Rx#:[id number] Oral 237 / 237 Output: Catheter 850 / 850 1200 / 1200 Gastric Drainage 0 / 0 400 / 400 Other: Stool Size Smear Moderate Stool Consistency soft loose Stool Characteristics Normal for Patient Stool Color Brown Brown # Bowel Movements 1 1 Weight 134.3 kg Blood Glucose* 211 234 Patient Weight 04/15/17 23:59 Weight 134.3 kg - General Appearance Exam: General appearance: Present: well-developed, well-nourished, appears started age EENT: Present: ATNC, PERRL, mucous membranes moist Neck: Present: supple Respiratory: Present: wheezing Cardiology: Present: trending better b/l LE edema, regular rate, regular rhythm , normal S1, normal S2 Gastrointestinal: Present: normoactive bowel sounds, no tenderness, no guarding Integumentary: Present: warm and dry Neurologic: Present: no focal deficit, no asterixis, alert and oriented x3 Musculoskeletal: Present: no deformities, no erythema, no cyanosis Psychiatric: Present: mood/affect appropriate, cooperative - Lab 04/19/17 03:25 04/19/17 03:25 Most recent lab results ABG pH 7.39 pH Units (7.32-7.45) 04/09/17 11:06 ABG pCO2 62 mmHg (35-45) H 04/09/17 11:06 ABG pO2 53 mmHg (85-104) L 04/09/17 11:06 ABG HCO3 37 mEq/L (21-27) H 04/09/17 11:06 ABG O2 Saturation 85 % (95-98) L 04/09/17 11:06 Calcium 9.4 mg/dL (8.6-10.8) 04/15/17 04:10 Phosphorus 3.7 mg/dL (2.3-4.7) 04/15/17 04:10 Magnesium 1.3 mg/dL (1.6-2.6) L 04/15/17 04:10 Urine Creatinine 64 mg/dL 04/11/17 08:00 Urine Sodium 26.0 mEq/L 04/11/17 08:00 Urine Total Protein 59 mg/dL (1-14) H 04/11/17 08:00 Consult Discharge Plan - Plan Instructions: Acute Kidney Injury (DC), Chronic Obstructive Pulmonary Disease ( DC), Acute Abdominal Pain (DC) Referrals: Dimitris Villaseñor CNP [Primary Care Provider] - 04/29/17 11:00 am () Vernell Arndt MD [Partnered Physician] - (Please call to arrange for hospital follow-up appointment) Jamie Keene MD [Partnered Physician] - (Please call to make hospital follow-up appointment) Prescriptions: Budesonide/Formoterol 160/4.5 [Symbicort 160/4.5] 2 puff IH BIDR #1 inhaler Magnesium Oxide [Mag-Ox] 400 mg PO BID #14 tablet Metoclopramide [Reglan] 5 mg PO QIDAC #120 tablet Nicotine Patch [Nicoderm] 21 mg TD DAILY #30 patch.td24 Sennosides/Docusate Sodium [Senna Plus] 2 each PO BID #60 tablet
[2017-04-15] MEDS: Metoclopramide 10 MG/2 ML VIAL IVP SCH (18:38)
[2017-04-16] MEDS: *HR* Morphine 2 MG/ML SYRINGE IVP PRN ×4 (00:39→21:34)
[2017-04-16] MEDS: Metoclopramide 10 MG/2 ML VIAL IVP SCH ×4 (00:39→17:18)
[2017-04-16] MEDS: Insulin LISPRO 300 UNITS/3 ML VIAL SQ SCH ×6 (00:40→20:41)
[2017-04-16] MEDS: D5% in Water 1,000 ML IVC SCH (03:08)
[2017-04-16] MEDS: Ipratropium/Albuterol Neb 3 ML IH SCH ×6 (04:39→23:17)
[2017-04-16] MEDS: *HR* Heparin 5,000 UNIT/ML VIAL SQ SCH ×2 (05:05→17:18)
[2017-04-16 05:37] LABS: Basophils % 0.3 %; Hemoglobin 7.9 g/dL (11.5-15.4)
[2017-04-16 05:38] LABS: Eosinophils # 0.4 K/mcL (0.0-0.6); Eosinophils % 3.3 %; Hematocrit 28.4 % (35.3-44.9); Immature Granulocytes % 3.2 % (0-4); Lymphocytes # 1.1 K/mcL (0.6-4.6); Lymphocytes % 8.9 %; Mean Corpuscular HGB Conc 27.8 g/dL (31.6-35.5); Mean Corpuscular Hemoglobin 29.3 pg (28.0-33.3); Mean Platelet Volume 9.5 fL (9.4-12.4); Monocytes # 0.8 K/mcL (0.0-1.3); Monocytes % 6.3 %; Neutrophils # 9.9 K/mcL (1.6-8.9); Nucleated Red Blood Cells 0.2 /100 WBC (0); Platelet Count 133 K/mcL (140-400); Red Cell Distribution Width 15.1 % (11.5-14.5)
[2017-04-16 05:48] LABS: Mean Corpuscular Volume 105.2 fL (83.0-100.0)
[2017-04-16 05:54] LABS: Alanine Aminotransferase 7 Units/L (0-55); Albumin/Globulin Ratio 0.4 (1.1-2.2); Alkaline Phosphatase 63 Units/L (38-126); Aspartate Amino Transferase 11 Units/L (5-34); BUN/Creatinine Ratio 57 (6-26); Bilirubin,Total 0.2 mg/dL (0.2-1.2); Blood Urea Nitrogen 53 mg/dL (7-20); Calcium 9.2 mg/dL (8.6-10.8); Carbon Dioxide 37 mEq/L (19-29); Chloride 102 mEq/L (98-109); Globulin 3.6 g/dL (2.4-3.5); Glucose 278 mg/dL (70-99); Osmolality,Calculated 328 (280-300); Potassium 3.1 mEq/L (3.5-4.5); Sodium 147 mEq/L (136-145); Total Protein 5.1 g/dL (6.0-8.3); eGFR For African Americans > 60 (> 60); eGFR For Non-African Americans > 60 (> 60)
[2017-04-16 05:55] LABS: Albumin 1.5 g/dL (3.5-5.0)
[2017-04-16 06:11] LABS: Hypochromasia Present (Not Present); Platelet Estimate Normal (Normal)
[2017-04-16] MEDS: Budesonide/Formoterol 160/4.5 MDI IH SCH ×2 (07:46→19:51)
[2017-04-16] MEDS: Nicotine 21 MG PATCH.TD24 TD SCH (08:10)
[2017-04-16] MEDS: Furosemide 40 MG/4 ML VIAL IVP SCH (08:11)
[2017-04-16] MEDS: Levothyroxine Sodium 100 MCG VIAL IVP SCH (08:11)
[2017-04-16] MEDS: Bisacodyl 10 MG RECTAL SUPPOSITORY RC SCH (08:11)
[2017-04-16] MEDS: Insulin DETEMIR 100 UNIT/ML X5UNITS SQ SCH ×2 (08:13→20:41)
--- NOTE | 2017-04-16 08:29 | Internal Med Progress Note ---
<Earl Flores - Last Filed: 04/16/17 08:25> Date of Encounter: 04/16/17 Time of Encounter: 08:29 - Assessment and plan (1) Hypernatremia Current Visit: Yes Status: Acute Assessment and plan: Sodium 147 down from 152 yesterday. Patient received D5 at 100 mL's per hour overnight. NG tube was clamped without suction. Receiving TPN. Plan: - Continue D5 at 100 mL's per hour, continue to monitor sodium. - Patient will start thickened liquid clears this morning. (2) Constipation Current Visit: Yes Status: Acute Assessment and plan: Severe constipation versus ileus, patient currently having bowel movements, NG tube clamped overnight. - Continue IV Reglan 10 mg every 6 hours to stimulate gastric/colonic motility. - Continue water enemas, patient is having bowel movements. - Starts clear thickened liquids this morning. Surgery will not intervene due to her poor recovery/condition/ventilation status Qualifiers: Constipation type: drug induced constipation Qualified Code(s): K59.03 - Drug induced constipation (3) Ileus Current Visit: Yes Status: Acute Assessment and plan: As discussed above. (4) Acute kidney injury superimposed on chronic kidney disease Current Visit: Yes Status: Acute Assessment and plan: Prerenal acute kidney injury superimposed on Chronic stage III kidney disease, improving. Today creatinine 0.93 and GFR greater than 60. Improvement secondary to D5 at 100 mL's per hour, clamping NG tube. - Continue to monitor daily - Avoid nephrotoxic medications and renally dose antibiotics. - Strict intake and output monitoring. (5) COPD (chronic obstructive pulmonary disease) Current Visit: Yes Status: Chronic Assessment and plan: History of COPD with previous COPD exacerbations. Component of hypoventilation syndrome. Continue bronchodilators, and wean oxygen as tolerated to baseline. Qualifiers: COPD type: unspecified COPD Qualified Code(s): J44.9 - Chronic obstructive pulmonary disease, unspecified (6) Type 2 diabetes mellitus Current Visit: Yes Status: Acute Assessment and plan: Uncontrolled Type II DM. Patient receiving TPN due to ileus and NG tube on suction. Plan: -Continue Levemir 20 units twice a day - Continue high-dose inpatient sliding scale. - Continue before meals and at bedtime glucose checks Qualifiers: Diabetes mellitus complication status: without complication Diabetes mellitus snf insulin use: with rat exterminator use Qualified Code(s): E11.9 - Type 2 diabetes mellitus without complications; Z79.4 - buttermaker continuous churn (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 of insulin; Z79.4 - buttermaker continuous churn (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 of insulin; Z79.4 - buttermaker continuous churn ( 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 of insulin; Z79.4 - buttermaker continuous churn (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 of insulin (7) DVT prophylaxis Current Visit: No Status: Acute Assessment and plan: Continue subcutaneous heparin. - Subjective Interval history: Ms. Yang 61 yo female has been seen and evaluated patient bedside this morning. She is alert awake and interactive. NG tube is in place off suction. Patient denies any nausea or vomiting overnight. She states that she is feeling okay but does feel a little full. She denies any abdominal discomfort and continues to have bowel movements. She requests starting oral intake if possible. - Constitutional Vitals: Temp Pulse Resp BP Pulse Ox 98.5 F 87 20 142/67 93 04/16/17 07:25 04/16/17 07:25 04/16/17 07:49 04/16/17 07:25 04/16/17 07:49 General appearance: Present: A&O X 3, morbidly obese, no acute distress - Head Head exam: Present: atraumatic, normocephalic - Eye Eye exam: Present: PERRL, conjuntiva pink, sclera anicteric Pupils: Present: PERRL - ENT Additional comments: NG tube in left nostril, clamps, no output. - Neck Neck exam general surgery: Present: supple, trachea midline. Absent: lymphadenopathy - Respiratory Respiratory exam: Present: CTAB. Absent: accessory muscle use, rales, rhonchi, wheezes - Cardiovascular Cardiovascular exam: Present: RRR, +S1, +S2. Absent: diastolic murmur, gallop, rubs, systolic murmur - GI/Abdominal GI/Abdominal exam: Present: normal bowel sounds, soft, no peritoneal signs. Absent: distended, tenderness - Extremities Exam Extremities exam: Present: warm, radial pulses palpable and symmetrical. Absent : calf tenderness, cyanotic, pedal edema - Neurological Exam Neurological exam: Present: CN II-XII intact, oriented X3, no focal deficits. Absent: pronater drift, facial droop, speech deficit - Skin Skin exam: Present: dry, intact Internal Medicine: Result - Labs CBC & Chem 7: 04/16/17 05:00 04/16/17 05:00 Labs: Short CBC 04/16/17 Range/Units 05:00 WBC 12.7 H (4.3-11.1) K/mcL Hgb 7.9 L (11.5-15.4) g/dL Hct 28.4 L (35.3-44.9) % Plt Count 133 L (140-400) K/mcL Neutrophils # 9.9 H (1.6-8.9) K/mcL BMP 04/16/17 05:00 Sodium 147 H Potassium 3.1 L Chloride 102 Carbon Dioxide 37 H BUN 53 H Creatinine 0.93 Glucose 278 H Calcium 9.2 Liver Function 04/16/17 Range/Units 05:00 Total Bilirubin 0.2 (0.2-1.2) mg/dL AST 11 (5-34) Units/L ALT 7 (0-55) Units/L Alkaline Phosphatase 63 (38-126) Units/L Albumin 1.5 L (3.5-5.0) g/dL - ABG Interpretation ABG results: ABG ABG pH 7.39 pH Units (7.32-7.45) 04/09/17 11:06 ABG pCO2 62 mmHg (35-45) H 04/09/17 11:06 ABG pO2 53 mmHg (85-104) L 04/09/17 11:06 ABG O2 Saturation 85 % (95-98) L 04/09/17 11:06 Consult Discharge Plan - Plan Referrals: Dimitris Villaseñor, PYRIDINE RECOVERY OPERATOR [Primary Care Provider] - 04/19/17 11:00 am () <Jose Armando Orellana - Last Filed: 04/16/17 17:55> Date of Encounter: 04/16/17 - Assessment and plan (1) Hypernatremia Current Visit: Yes Status: Acute (2) Constipation Current Visit: Yes Status: Acute Qualifiers: Constipation type: drug induced constipation Qualified Code(s): K59.03 - Drug induced constipation (3) Ileus Current Visit: Yes Status: Acute (4) Hypertension Current Visit: No Status: Chronic Qualifiers: Hypertension type: essential hypertension Qualified Code(s): I10 - Essential (primary) hypertension (5) Tobacco abuse Current Visit: Yes Status: Chronic (6) Diabetes mellitus Current Visit: No Status: Chronic Qualifiers: Diabetes mellitus type: type 2 Diabetes mellitus complication status: with kidney complications Diabetes mellitus complication detail: with chronic kidney disease Diabetes mellitus snf insulin use: with snf use Chronic kidney disease stage: stage 3 (moderate) Qualified Code(s): E11.22 - Type 2 diabetes mellitus with diabetic chronic kidney disease; N18.3 - Chronic kidney disease, stage 3 (moderate); N18.3 - Chronic kidney disease, stage 3 ( moderate); Z79.4 - retirement (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 of insulin; Z79.4 - buttermaker continuous churn ( 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 of insulin; Z79.4 - retirement (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 of insulin; Z79.4 - buttermaker continuous churn (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 of insulin (7) Chronic respiratory failure with hypoxia and hypercapnia Current Visit: Yes Status: Chronic - Constitutional Vitals: Temp Pulse Resp BP Pulse Ox 99.6 F 91 17 123/63 98 04/16/17 15:38 04/16/17 15:38 04/16/17 15:38 04/16/17 15:38 04/16/17 15:38 Internal Medicine: Result - Labs CBC & Chem 7: 04/16/17 05:00 04/16/17 05:00 Labs: Short CBC 04/16/17 Range/Units 05:00 WBC 12.7 H (4.3-11.1) K/mcL Hgb 7.9 L (11.5-15.4) g/dL Hct 28.4 L (35.3-44.9) % Plt Count 133 L (140-400) K/mcL Neutrophils # 9.9 H (1.6-8.9) K/mcL BMP 04/16/17 05:00 Sodium 147 H Potassium 3.1 L Chloride 102 Carbon Dioxide 37 H BUN 53 H Creatinine 0.93 Glucose 278 H Calcium 9.2 Liver Function 04/16/17 Range/Units 05:00 Total Bilirubin 0.2 (0.2-1.2) mg/dL AST 11 (5-34) Units/L ALT 7 (0-55) Units/L Alkaline Phosphatase 63 (38-126) Units/L Albumin 1.5 L (3.5-5.0) g/dL - ABG Interpretation ABG results: ABG ABG pH 7.39 pH Units (7.32-7.45) 04/09/17 11:06 ABG pCO2 62 mmHg (35-45) H 04/09/17 11:06 ABG pO2 53 mmHg (85-104) L 04/09/17 11:06 ABG O2 Saturation 85 % (95-98) L 04/09/17 11:06 - Attending Attestation I examined this patient and my medical decision-making was reviewed with the Resident Physician on 04/16/17. I agree with the documented findings, disposition and treatment plan as described except to the extent set forth below. Ms Yang is currently admitted for acute abd pain due to ileus versus obstipation. She remains high risk due to potential for worsening respiratory and GI status. Ms Yang is somewhat better today. She has had NG clamped and tolerated some liquids today. She has been having BMs with Reglan. She denies pain. No fever or chills. Dyspnea about the same. Family at bedside and feel she is doing better today. Exam Alert. Comfortable Mucus membranes dry NG clamped Heart reg No wheee Abd soft and nontender I/P 1. Ileus - trying liquids at this time. Continue Reglan. NG to clamp. 2. Obstipation improving Further diagnoses and plan as above.
[2017-04-16] MEDS ORDERED: [UNRECOGNIZED DRUG - OTHER] IVC SCH (17:00)
[2017-04-16] MEDS ORDERED: MVI IVC SCH (17:00)
[2017-04-16] MEDS ORDERED: DEXTROSE 15% IVC SCH (17:00)
[2017-04-16] MEDS ORDERED: AMINO ACIDS IVC SCH (17:00)
[2017-04-16] MEDS ORDERED: VITAMIN K IVC SCH (17:00)
[2017-04-17] MEDS: Insulin LISPRO 300 UNITS/3 ML VIAL SQ SCH ×7 (00:44→23:22)
[2017-04-17] MEDS: Metoclopramide 10 MG/2 ML VIAL IVP SCH ×4 (00:45→21:23)
[2017-04-17] MEDS: *HR* Morphine 2 MG/ML SYRINGE IVP PRN ×3 (03:39→21:22)
[2017-04-17 04:24] LABS: BUN/Creatinine Ratio 53 (6-26); Calcium 9.2 mg/dL (8.6-10.8); Carbon Dioxide 36 mEq/L (19-29); Chloride 101 mEq/L (98-109); Glucose 153 mg/dL (70-99); Magnesium 1.4 mg/dL (1.6-2.6); Osmolality,Calculated 312 (280-300); Phosphorous 3.2 mg/dL (2.3-4.7); Potassium 3.3 mEq/L (3.5-4.5); Sodium 145 mEq/L (136-145); eGFR For African Americans > 60 (> 60); eGFR For Non-African Americans > 60 (> 60)
[2017-04-17] MEDS: Ipratropium/Albuterol Neb 3 ML IH SCH ×6 (04:24→23:22)
[2017-04-17 04:25] LABS: Blood Urea Nitrogen 39 mg/dL (7-20)
[2017-04-17] MEDS: *HR* Heparin 5,000 UNIT/ML VIAL SQ SCH ×2 (05:16→16:27)
[2017-04-17 05:36] LABS: Basophils % 0.3 %; Eosinophils # 0.6 K/mcL (0.0-0.6); Eosinophils % 4.8 %; Hematocrit 27.7 % (35.3-44.9); Hemoglobin 8.6 g/dL (11.5-15.4); Immature Granulocytes % 2.2 % (0-4); Lymphocytes # 1.3 K/mcL (0.6-4.6); Lymphocytes % 10.8 %; Mean Corpuscular Hemoglobin 29.6 pg (28.0-33.3); Mean Platelet Volume 9.5 fL (9.4-12.4); Monocytes # 0.7 K/mcL (0.0-1.3); Monocytes % 5.4 %; Neutrophils # 9.3 K/mcL (1.6-8.9); Platelet Count 154 K/mcL (140-400); Red Blood Count 2.91 M/mcL (3.82-4.97); Red Cell Distribution Width 14.4 % (11.5-14.5); Segmented Neutrophils % 76.5 %
[2017-04-17 05:40] LABS: Mean Corpuscular Volume 95.2 fL (83.0-100.0)
[2017-04-17] MEDS: Budesonide/Formoterol 160/4.5 MDI IH SCH ×2 (07:41→19:49)
[2017-04-17] MEDS: Furosemide 40 MG/4 ML VIAL IVP SCH (08:10)
[2017-04-17] MEDS: Nicotine 21 MG PATCH.TD24 TD SCH (08:10)
[2017-04-17] MEDS: Levothyroxine Sodium 100 MCG VIAL IVP SCH (08:10)
[2017-04-17] MEDS: Bisacodyl 10 MG RECTAL SUPPOSITORY RC SCH (08:10)
--- NOTE | 2017-04-17 09:38 | Internal Med Progress Note ---
<Earl Flores - Last Filed: 04/17/17 09:36> Date of Encounter: 04/17/17 Time of Encounter: 09:36 - Assessment and plan (1) Hypernatremia Current Visit: Yes Status: Acute Assessment and plan: Sodium 147 down from 152 yesterday. Patient received D5 at 100 mL's per hour overnight. NG tube was clamped without suction. Receiving TPN. 04/17: Sodium 145, patient continued on D5 while advancing diet this morning. If she continues to tolerate oral intake will reduce IV fluids. Weaning off TPN with plans for discontinuation at 5 PM today. Plan: - Continue D5 at 100 mL's per hour, plan to decrease IV fluids as patient increases oral intake. continue to monitor sodium. - Patient will start thickened liquid full liquids, this morning. (2) Constipation Current Visit: Yes Status: Acute Assessment and plan: Severe constipation versus ileus, patient currently having bowel movements. - Continue IV Reglan 10 mg every 12 hours to stimulate gastric/colonic motility. Side effects of tardive dyskinesia were discussed with patient. She understands risk but wishes to continue on his current medication. - Continue water enemas, patient is having bowel movements. - Starts fall thickened liquids this morning. Surgery will not intervene due to her poor recovery/condition/ventilation status Qualifiers: Constipation type: drug induced constipation Qualified Code(s): K59.03 - Drug induced constipation (3) Ileus Current Visit: Yes Status: Acute Assessment and plan: As discussed above. - Patient will have to follow up with gastroenterology post discharge. (4) Acute kidney injury superimposed on chronic kidney disease Current Visit: Yes Status: Acute Assessment and plan: Prerenal acute kidney injury superimposed on Chronic stage III kidney disease, improving. Today creatinine 0.73 and GFR greater than 60. Improvement secondary to D5 at 100 mL's per hour, NG tube to be removed. - D/c'd Lasix, IV fluids - Continue to monitor daily - Avoid nephrotoxic medications and renally dose antibiotics. - Strict intake and output monitoring. (5) COPD (chronic obstructive pulmonary disease) Current Visit: Yes Status: Chronic Assessment and plan: History of COPD with previous COPD exacerbations. Component of hypoventilation syndrome. Continue bronchodilators, and wean oxygen as tolerated to baseline. Qualifiers: COPD type: unspecified COPD Qualified Code(s): J44.9 - Chronic obstructive pulmonary disease, unspecified (6) Type 2 diabetes mellitus Current Visit: Yes Status: Acute Assessment and plan: Uncontrolled Type II DM. Patient receiving TPN due to ileus and NG tube on suction. 04/17: Patient glucose significantly improved 153 this morning after increase of Levemir yesterday and decreased TPN. - We will continue to closely monitor as an or decreasing TPN and increasing oral intake. May need reduction in Levemir and sliding scale insulin. Plan: - Continue Levemir 25 units twice a day - Continue high-dose inpatient sliding scale. - Continue before meals and at bedtime glucose checks Qualifiers: Diabetes mellitus complication status: without complication Diabetes mellitus mcfp insulin use: with mcfp use Qualified Code(s): E11.9 - Type 2 diabetes mellitus without complications; Z79.4 - termite exterminator (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 of insulin; Z79.4 - [facility] (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 of insulin; Z79.4 - [facility] ( 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 of insulin; Z79.4 - [facility] (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 of insulin (7) Hypomagnesemia Current Visit: Yes Status: Acute Assessment and plan: Magnesium was 1.0 yesterday currently 1.4 receiving 2 g IV magnesium will recheck tomorrow morning. He should not clinically stable. Likely secondary to ileus and nasogastric suction. (8) DVT prophylaxis Current Visit: No Status: Acute Assessment and plan: Continue subcutaneous heparin. - Subjective Interval history: Ms. Yang 61 yo female has been seen and evaluated patient bedside this morning. She is alert awake and interactive. She states that she is feeling well, tolerating clear liquids denies any nausea or vomiting or abdominal discomfort. She is hopeful for having the NG tube out this morning and increasing her diet as tolerated. She denies any other major concerns, she continues to have flatulence and bowel movements. - Constitutional Vitals: Temp Pulse Resp BP Pulse Ox 98.5 F 88 20 110/61 90 04/17/17 08:22 04/17/17 08:22 04/17/17 08:22 04/17/17 08:22 04/17/17 08:22 General appearance: Present: A&O X 3, morbidly obese, no acute distress Exam: General: Patient alert, awake, oriented 3, interactive, in no acute distress HEENT: Normocephalic, atraumatic, pupils equal reactive to light, oral mucosa moist, uvula midline, neck supple trachea midline no palpable lymphadenopathy, no thyromegaly. Chest: Symmetric bilateral correlating with respiratory effort, effort nonlabored. Cardiac: Regular rate and rhythm, positive S1 and S2. no bruits appreciated bilateral carotids, Radial pulses 2+ bilateral, posterior tibial and dorsal pedal pulses 2+ bilateral. Respiratory: Clear to auscultation all lung cross Abdomen: Soft, obese, nontender, positive bowel sounds, no palpable masses appreciated on examination Extremities: Symmetric bilateral, bilateral lower extremities without erythema or edema patient moving all 4 extremities spontaneously. Neurologic: No focal deficits appreciated on examination. Face symmetric, muscle strength symmetric bilateral upper and lower extremities. Internal Medicine: Result - Labs CBC & Chem 7: 04/17/17 05:00 04/17/17 03:45 Labs: Short CBC 04/17/17 Range/Units 05:00 WBC 12.2 H (4.3-11.1) K/mcL Hgb 8.6 L (11.5-15.4) g/dL Hct 27.7 L (35.3-44.9) % Plt Count 154 (140-400) K/mcL Neutrophils # 9.3 H (1.6-8.9) K/mcL BMP 04/17/17 03:45 Sodium 145 Potassium 3.3 L Chloride 101 Carbon Dioxide 36 H BUN 39 H D Creatinine 0.73 Glucose 153 H Calcium 9.2 - ABG Interpretation ABG results: ABG ABG pH 7.39 pH Units (7.32-7.45) 04/09/17 11:06 ABG pCO2 62 mmHg (35-45) H 04/09/17 11:06 ABG pO2 53 mmHg (85-104) L 04/09/17 11:06 ABG O2 Saturation 85 % (95-98) L 04/09/17 11:06 Consult Discharge Plan - Plan Referrals: Dimitris Villaseñor, JARRETT [Primary Care Provider] - 04/29/17 11:00 am () <Jose Armando Orellana - Last Filed: 04/17/17 18:17> Date of Encounter: 04/17/17 - Assessment and plan (1) Hypernatremia Current Visit: Yes Status: Acute (2) Constipation Current Visit: Yes Status: Acute Qualifiers: Constipation type: drug induced constipation Qualified Code(s): K59.03 - Drug induced constipation (3) Ileus Current Visit: Yes Status: Acute (4) Hypertension Current Visit: No Status: Chronic Qualifiers: Hypertension type: essential hypertension Qualified Code(s): I10 - Essential (primary) hypertension (5) Tobacco abuse Current Visit: Yes Status: Chronic (6) Diabetes mellitus Current Visit: No Status: Chronic Qualifiers: Diabetes mellitus type: type 2 Diabetes mellitus complication status: with kidney complications Diabetes mellitus complication detail: with chronic kidney disease Diabetes mellitus local intermodal truck driver insulin use: with mcfp use Chronic kidney disease stage: stage 3 (moderate) Qualified Code(s): E11.22 - Type 2 diabetes mellitus with diabetic chronic kidney disease; N18.3 - Chronic kidney disease, stage 3 (moderate); N18.3 - Chronic kidney disease, stage 3 ( moderate); Z79.4 - termite exterminator (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 of insulin; Z79.4 - [facility] ( 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 of insulin; Z79.4 - termite exterminator (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 of insulin; Z79.4 - [facility] (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 of insulin (7) Chronic respiratory failure with hypoxia and hypercapnia Current Visit: Yes Status: Chronic - Constitutional Vitals: Temp Pulse Resp BP Pulse Ox 98.3 F 96 18 138/75 90 04/17/17 15:35 04/17/17 15:35 04/17/17 15:35 04/17/17 15:35 04/17/17 15:35 Internal Medicine: Result - Labs CBC & Chem 7: 04/17/17 05:00 04/17/17 03:45 Labs: Short CBC 04/17/17 Range/Units 05:00 WBC 12.2 H (4.3-11.1) K/mcL Hgb 8.6 L (11.5-15.4) g/dL Hct 27.7 L (35.3-44.9) % Plt Count 154 (140-400) K/mcL Neutrophils # 9.3 H (1.6-8.9) K/mcL BMP 04/17/17 03:45 Sodium 145 Potassium 3.3 L Chloride 101 Carbon Dioxide 36 H BUN 39 H D Creatinine 0.73 Glucose 153 H Calcium 9.2 - ABG Interpretation ABG results: ABG ABG pH 7.39 pH Units (7.32-7.45) 11/28/17 11:06 ABG pCO2 62 mmHg (35-45) H 04/09/17 11:06 ABG pO2 53 mmHg (85-104) L 04/09/17 11:06 ABG O2 Saturation 85 % (95-98) L 04/09/17 11:06 - Attending Attestation I examined this patient and my medical decision-making was reviewed with the Resident Physician on 04/17/17. I agree with the documented findings, disposition and treatment plan as described except to the extent set forth below. Ms Yang is currently admitted for ileus and obstipation. She remains moderate to high risk due to potential for worsening clinical status. Ms Yang is tolerating liquids. NG removed today. No pain. No fever or chills. No CP or SOB. Will be advancing diet today. Exam Alert. Comfortable Mucus membranes dry Heart reg No wheeze or rhonchi Abd soft and nontender I/P 1. Ileus 2. Obstipation 3. Hypernatremia Further diagnoses and plan as above.
[2017-04-17] MEDS: Insulin DETEMIR 100 UNIT/ML X5UNITS SQ SCH ×2 (10:21→21:52)
[2017-04-18] MEDS: *HR* Morphine 2 MG/ML SYRINGE IVP PRN (03:16)
[2017-04-18 03:37] LABS: Basophils % 0.3 %; Eosinophils # 0.7 K/mcL (0.0-0.6); Eosinophils % 5.3 %; Hematocrit 28.3 % (35.3-44.9); Hemoglobin 8.8 g/dL (11.5-15.4); Immature Granulocytes % 1.7 % (0-4); Lymphocytes # 1.7 K/mcL (0.6-4.6); Lymphocytes % 12.6 %; Mean Corpuscular HGB Conc 31.1 g/dL (31.6-35.5); Mean Corpuscular Hemoglobin 29.4 pg (28.0-33.3); Mean Corpuscular Volume 94.6 fL (83.0-100.0); Mean Platelet Volume 9.5 fL (9.4-12.4); Monocytes # 0.8 K/mcL (0.0-1.3); Neutrophils # 9.8 K/mcL (1.6-8.9); Platelet Count 187 K/mcL (140-400); Red Blood Count 2.99 M/mcL (3.82-4.97); Red Cell Distribution Width 14.5 % (11.5-14.5); Segmented Neutrophils % 74.1 %
[2017-04-18 03:57] LABS: Alanine Aminotransferase 8 Units/L (0-55); Albumin/Globulin Ratio 0.5 (1.1-2.2); Alkaline Phosphatase 78 Units/L (38-126); Aspartate Amino Transferase 15 Units/L (5-34); BUN/Creatinine Ratio 40 (6-26); Bilirubin,Total 0.4 mg/dL (0.2-1.2); Blood Urea Nitrogen 30 mg/dL (7-20); Carbon Dioxide 35 mEq/L (19-29); Chloride 101 mEq/L (98-109); Globulin 3.7 g/dL (2.4-3.5); Glucose 118 mg/dL (70-99); Magnesium 1.1 mg/dL (1.6-2.6); Osmolality,Calculated 309 (280-300); Potassium 3.6 mEq/L (3.5-4.5); Sodium 146 mEq/L (136-145); Total Protein 5.4 g/dL (6.0-8.3); eGFR For African Americans > 60 (> 60); eGFR For Non-African Americans > 60 (> 60)
[2017-04-18 03:58] LABS: Albumin 1.7 g/dL (3.5-5.0)
[2017-04-18] MEDS: Insulin LISPRO 300 UNITS/3 ML VIAL SQ SCH ×5 (04:12→20:22)
[2017-04-18] MEDS: Ipratropium/Albuterol Neb 3 ML IH SCH ×6 (04:48→23:20)
[2017-04-18 04:59] LABS: ABG Base Excess 14 mEq/L (-2 to 3); ABG HCO3 39 mEq/L (21-27); ABG Oxygen Saturation 90 % (95-98); ABG PCO2 54 mmHg (35-45); ABG PH 7.47 pH Units (7.32-7.45); ABG PO2 56 mmHg (85-104); ABG TCO2 41 mEq/L (20-26)
[2017-04-18] MEDS: Levothyroxine 25 MCG TABLET PO SCH (05:48)
[2017-04-18] MEDS: *HR* Heparin 5,000 UNIT/ML VIAL SQ SCH ×2 (05:48→18:11)
[2017-04-18] MEDS: Budesonide/Formoterol 160/4.5 MDI IH SCH ×2 (07:20→19:44)
--- NOTE | 2017-04-18 09:50 | Internal Med Progress Note ---
<Earl Flores - Last Filed: 04/18/17 10:59> Date of Encounter: 04/18/17 Time of Encounter: 09:50 - Assessment and plan (1) Hypernatremia Current Visit: Yes Status: Acute Assessment and plan: Sodium 147 down from 152 yesterday. Patient received D5 at 100 mL's per hour overnight. NG tube was clamped without suction. Receiving TPN. 04/17: Sodium 145, patient continued on D5 while advancing diet this morning. If she continues to tolerate oral intake will reduce IV fluids. Weaning off TPN with plans for discontinuation at 5 PM today. 04/18: Hypernatremia resolved. Patient tolerating oral intake will discontinue D5 IV fluids. Plan: - continue to monitor sodium. - Advancing diet as tolerated (2) Constipation Current Visit: Yes Status: Acute Assessment and plan: Severe constipation versus ileus, patient currently having bowel movements. - Change IV Reglan to 5 mg before meals and at bedtime. Side effects of tardive dyskinesia were discussed with patient. She understands risk but wishes to continue on his current medication. - Continue water enemas, patient is having bowel movements. - Starts advancing diet as tolerated - Correcting hypomanic Surgery will not intervene due to her poor recovery/condition/ventilation status Qualifiers: Constipation type: drug induced constipation Qualified Code(s): K59.03 - Drug induced constipation (3) Ileus Current Visit: Yes Status: Acute Assessment and plan: As discussed above. - Patient will have to follow up with gastroenterology post discharge. (4) Acute kidney injury superimposed on chronic kidney disease Current Visit: Yes Status: Acute Assessment and plan: Prerenal acute kidney injury superimposed on Chronic stage III kidney disease, improving. Today creatinine 0.73 and GFR greater than 60. Improvement secondary to D5 at 100 mL's per hoor, - D/c'd Lasix, IV fluids - Continue to monitor daily - Avoid nephrotoxic medications and renally dose antibiotics. - Strict intake and output monitoring. (5) COPD (chronic obstructive pulmonary disease) Current Visit: Yes Status: Chronic Assessment and plan: History of COPD with previous COPD exacerbations. Component of hypoventilation syndrome. Continue bronchodilators, and wean oxygen as tolerated to baseline. Qualifiers: COPD type: unspecified COPD Qualified Code(s): J44.9 - Chronic obstructive pulmonary disease, unspecified (6) Type 2 diabetes mellitus Current Visit: Yes Status: Acute Assessment and plan: Uncontrolled Type II DM. Patient receiving TPN due to ileus and NG tube on suction. 04/17: Patient glucose significantly improved 153 this morning after increase of Levemir yesterday and decreased TPN. - We will continue to closely monitor as an or decreasing TPN and increasing oral intake. May need reduction in Levemir and sliding scale insulin. 04/18: Patient glucose appropriate today, patient is now tolerating oral intake and off TPN will decrease Levemir to 20 mg twice a day and sliding scale insulin Plan: - Continue Levemir 20 units twice a day - Continue high-dose inpatient sliding scale. 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 Patient receiving 2 g IV currently and started on 400 mg by mouth mag daily. (8) DVT prophylaxis Current Visit: No Status: Acute Assessment and plan: Continue subcutaneous heparin. - Subjective Interval history: Ms. Yang 61 yo female has been seen and evaluated patient bedside this morning. She is alert awake and interactive. She states that she is feeling well today no abdominal discomforts nausea or vomiting. She has tolerated her liquid diet and wishes to advance her diet today. We discussed ambulating out of bed to the chair which she did not want to do after further discussion she was agreeable. She does not want to have decreased mobility at home. - Constitutional Vitals: Temp Pulse Resp BP Pulse Ox 98.6 F 90 18 130/76 87 04/18/17 06:48 04/18/17 06:48 04/18/17 07:23 04/18/17 06:48 04/18/17 07:23 General appearance: Present: A&O X 3, morbidly obese, no acute distress Exam: General: Patient alert, awake, oriented 3, interactive, in no acute distress HEENT: Normocephalic, atraumatic, pupils equal reactive to light, oral mucosa moist, uvula midline, neck supple trachea midline no palpable lymphadenopathy, no thyromegaly. Chest: Symmetric bilateral correlating with respiratory effort, effort nonlabored. Cardiac: Regular rate and rhythm, positive S1 and S2. no bruits appreciated bilateral carotids, Radial pulses 2+ bilateral, posterior tibial and dorsal pedal pulses 2+ bilateral. Respiratory: Clear to auscultation all lung cross Abdomen: Soft, obese, nontender, positive bowel sounds, no palpable masses appreciated on examination Extremities: Symmetric bilateral, bilateral lower extremities without erythema or edema patient moving all 4 extremities spontaneously. Neurologic: No focal deficits appreciated on examination. Face symmetric, muscle strength symmetric bilateral upper and lower extremities. Internal Medicine: Result - Labs CBC & Chem 7: 04/18/17 03:20 04/18/17 03:20 Labs: Short CBC 04/18/17 Range/Units 03:20 WBC 13.2 H (4.3-11.1) K/mcL Hgb 8.8 L (11.5-15.4) g/dL Hct 28.3 L (35.3-44.9) % Plt Count 187 (140-400) K/mcL Neutrophils # 9.8 H (1.6-8.9) K/mcL BMP 04/18/17 03:20 Sodium 146 H Potassium 3.6 Chloride 101 Carbon Dioxide 35 H BUN 30 H Creatinine 0.75 Glucose 118 H Calcium 9.0 Liver Function 04/18/17 Range/Units 03:20 Total Bilirubin 0.4 (0.2-1.2) mg/dL AST 15 (5-34) Units/L ALT 8 (0-55) Units/L Alkaline Phosphatase 78 (38-126) Units/L Albumin 1.7 L (3.5-5.0) g/dL - ABG Interpretation ABG results: ABG ABG pH 7.47 pH Units (7.32-7.45) H 04/18/17 04:57 ABG pCO2 54 mmHg (35-45) H 04/18/17 04:57 ABG pO2 56 mmHg (85-104) L 04/18/17 04:57 ABG O2 Saturation 90 % (95-98) L 04/18/17 04:57 Consult Discharge Plan - Plan Referrals: Dimitris Villaseñor, CLIENT CARE MANAGER [Primary Care Provider] - 04/29/17 11:00 am () <Jose Armando Orellana - Last Filed: 04/18/17 19:07> Date of Encounter: 04/18/17 - Assessment and plan (1) Hypernatremia Current Visit: Yes Status: Acute (2) Constipation Current Visit: Yes Status: Acute Qualifiers: Constipation type: drug induced constipation Qualified Code(s): K59.03 - Drug induced constipation (3) Ileus Current Visit: Yes Status: Acute (4) Hypertension Current Visit: No Status: Chronic Qualifiers: Hypertension type: essential hypertension Qualified Code(s): I10 - Essential (primary) hypertension (5) Tobacco abuse Current Visit: Yes Status: Chronic (6) Diabetes mellitus Current Visit: No Status: Chronic Qualifiers: Diabetes mellitus type: type 2 Diabetes mellitus complication status: with kidney complications Diabetes mellitus complication detail: with chronic kidney disease 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: with prison use Chronic kidney disease stage: stage 3 (moderate) Qualified Code(s): E11.22 - Type 2 diabetes mellitus with diabetic chronic kidney disease; N18.3 - Chronic kidney disease, stage 3 (moderate); N18.3 - Chronic kidney disease, stage 3 ( moderate); Z79.4 - [facility] (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 of insulin; Z79.4 - rodent exterminator ( 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 of insulin; Z79.4 - rodent exterminator (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 of insulin; Z79.4 - [facility] (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 of insulin (7) Chronic respiratory failure with hypoxia and hypercapnia Current Visit: Yes Status: Chronic - Constitutional Vitals: Temp Pulse Resp BP Pulse Ox 98.5 F 94 16 126/81 90 04/18/17 18:43 04/18/17 18:43 04/18/17 18:43 04/18/17 18:43 04/18/17 16:53 Internal Medicine: Result - Labs CBC & Chem 7: 04/18/17 03:20 04/18/17 03:20 Labs: Short CBC 04/18/17 Range/Units 03:20 WBC 13.2 H (4.3-11.1) K/mcL Hgb 8.8 L (11.5-15.4) g/dL Hct 28.3 L (35.3-44.9) % Plt Count 187 (140-400) K/mcL Neutrophils # 9.8 H (1.6-8.9) K/mcL BMP 04/18/17 03:20 Sodium 146 H Potassium 3.6 Chloride 101 Carbon Dioxide 35 H BUN 30 H Creatinine 0.75 Glucose 118 H Calcium 9.0 Liver Function 04/18/17 Range/Units 03:20 Total Bilirubin 0.4 (0.2-1.2) mg/dL AST 15 (5-34) Units/L ALT 8 (0-55) Units/L Alkaline Phosphatase 78 (38-126) Units/L Albumin 1.7 L (3.5-5.0) g/dL - ABG Interpretation ABG results: ABG ABG pH 7.47 pH Units (7.32-7.45) H 04/18/17 04:57 ABG pCO2 54 mmHg (35-45) H 04/18/17 04:57 ABG pO2 56 mmHg (85-104) L 04/18/17 04:57 ABG O2 Saturation 90 % (95-98) L 04/18/17 04:57 - Attending Attestation I examined this patient and my medical decision-making was reviewed with the Resident Physician on 04/18/17. I agree with the documented findings, disposition and treatment plan as described except to the extent set forth below. Ms Yang is currently admitted for acute ileus/obstipation. She remains moderate to high risk due to potential for worsening clinical status. Ms Yang is tolerating diet. No fever or chills. Has not gotten up. Tapering Reglan today. Encouraging to get up. Exam Alert. Comfortable Mucus membranes dry Heart distant Lungs diminished Abd soft I/P 1. Ileus 2. Obstipation. Anticipate d/c tomorrow.
[2017-04-18] MEDS: *HR* OxyCODONE Immed Rel 5 MG TABLET PO PRN ×2 (09:59→18:17)
[2017-04-18] MEDS: Insulin DETEMIR 100 UNIT/ML X5UNITS SQ SCH ×2 (09:59→20:23)
[2017-04-18] MEDS: Ondansetron ODT 4 MG TAB.RAPDIS SL PRN (10:00)
[2017-04-18] MEDS: Metoclopramide 10 MG/2 ML VIAL IVP SCH (10:00)
[2017-04-18] MEDS: FLUoxetine 20 MG CAPSULE PO SCH (10:02)
[2017-04-18] MEDS: Nicotine 21 MG PATCH.TD24 TD SCH (10:02)
[2017-04-18] MEDS: Bisacodyl 10 MG RECTAL SUPPOSITORY RC SCH (10:03)
[2017-04-18] MEDS: Magnesium Oxide 400 MG TABLET PO SCH ×2 (10:07→20:23)
[2017-04-18] MEDS ORDERED: Metoclopramide 10 MG/10 ML UD.LIQ PO SCH (20:00)
[2017-04-19 03:33] LABS: Basophils % 0.3 %; Eosinophils # 0.7 K/mcL (0.0-0.6); Eosinophils % 5.2 %; Hematocrit 29.4 % (35.3-44.9); Hemoglobin 8.9 g/dL (11.5-15.4); Immature Granulocytes % 1.4 % (0-4); Lymphocytes # 1.5 K/mcL (0.6-4.6); Lymphocytes % 11.3 %; Mean Corpuscular HGB Conc 30.3 g/dL (31.6-35.5); Mean Corpuscular Hemoglobin 29.2 pg (28.0-33.3); Mean Corpuscular Volume 96.4 fL (83.0-100.0); Mean Platelet Volume 9.2 fL (9.4-12.4); Monocytes # 0.8 K/mcL (0.0-1.3); Monocytes % 6.1 %; Neutrophils # 9.7 K/mcL (1.6-8.9); Platelet Count 234 K/mcL (140-400); Red Blood Count 3.05 M/mcL (3.82-4.97); Red Cell Distribution Width 14.7 % (11.5-14.5); Segmented Neutrophils % 75.7 %
[2017-04-19] MEDS: Ipratropium/Albuterol Neb 3 ML IH SCH ×6 (03:39→23:48)
[2017-04-19 03:49] LABS: Alanine Aminotransferase 9 Units/L (0-55); Albumin 1.9 g/dL (3.5-5.0); Albumin/Globulin Ratio 0.5 (1.1-2.2); Alkaline Phosphatase 88 Units/L (38-126); Aspartate Amino Transferase 18 Units/L (5-34); BUN/Creatinine Ratio 33 (6-26); Bilirubin,Total 0.4 mg/dL (0.2-1.2); Blood Urea Nitrogen 25 mg/dL (7-20); Calcium 8.7 mg/dL (8.6-10.8); Carbon Dioxide 32 mEq/L (19-29); Chloride 101 mEq/L (98-109); Globulin 3.7 g/dL (2.4-3.5); Glucose 155 mg/dL (70-99); Magnesium 1.5 mg/dL (1.6-2.6); Osmolality,Calculated 306 (280-300); Potassium 3.7 mEq/L (3.5-4.5); Sodium 144 mEq/L (136-145); Total Protein 5.6 g/dL (6.0-8.3); eGFR For African Americans > 60 (> 60); eGFR For Non-African Americans > 60 (> 60)
[2017-04-19] MEDS: *HR* Heparin 5,000 UNIT/ML VIAL SQ SCH ×2 (05:12→18:49)
[2017-04-19] MEDS: Levothyroxine 25 MCG TABLET PO SCH (05:12)
[2017-04-19] MEDS: *HR* OxyCODONE Immed Rel 5 MG TABLET PO PRN ×4 (05:13→21:36)
[2017-04-19] MEDS: Budesonide/Formoterol 160/4.5 MDI IH SCH ×2 (07:30→20:05)
[2017-04-19] MEDS: Nicotine 21 MG PATCH.TD24 TD SCH (08:31)
[2017-04-19] MEDS: Insulin LISPRO 300 UNITS/3 ML VIAL SQ SCH ×4 (08:31→21:37)
[2017-04-19] MEDS: Insulin DETEMIR 100 UNIT/ML X5UNITS SQ SCH ×2 (08:31→21:36)
[2017-04-19] MEDS: FLUoxetine 20 MG CAPSULE PO SCH (08:32)
[2017-04-19] MEDS: Magnesium Oxide 400 MG TABLET PO SCH ×2 (08:32→21:35)
[2017-04-19] MEDS: Bisacodyl 10 MG RECTAL SUPPOSITORY RC SCH (08:33)
--- NOTE | 2017-04-19 09:33 | Palliative Progress Note ---
Date of Encounter: 04/19/17 Time of Encounter: 07:50 - Assessment and plan (1) Abdominal pain Current Visit: Yes Status: Acute Assessment and plan: This has essentially resolved to new current meds. I understand the plan from the hospitalist team is probable discharge today or tomorrow. Qualifiers: Abdominal location: generalized Qualified Code(s): R10.84 - Generalized abdominal pain (2) Constipation Current Visit: Yes Status: Acute Assessment and plan: Bowels are now moving, would recommend set I have discussed with the hospitalist team senna is now ordered. Qualifiers: Constipation type: drug induced constipation Qualified Code(s): K59.03 - Drug induced constipation (3) COPD (chronic obstructive pulmonary disease) Current Visit: No Status: Chronic Assessment and plan: Plan per hospitalist team Qualifiers: COPD type: emphysema Emphysema type: unspecified Qualified Code(s): J43.9 - Emphysema, unspecified (4) Counseling regarding advanced care planning and goals of care Current Visit: Yes Status: Acute Assessment and plan: The patient is DNR CCA, she is okay with short-term intubation. I will is to return home supposed to work with PT and OT towards that goal. Standing from the hospitalist team as she will be discharged either later today or tomorrow. At this point palliative is nothing further to offer and will sign off. Please feel free to reconsult if we can help in any way. - Time Spent With Patient Total time spent is greater than 50% in coordination of care (as documented) at patient's floor/unit and/or counseling patient: - Subjective Interval history: feeling much better this morning, states that she is able to tolerate the diet. She also states that she will work with PT and OT. - Constitutional Vitals: Abnormal lab results WBC 12.9 K/mcL (4.3-11.1) H 04/19/17 03:25 RBC 3.05 M/mcL (3.82-4.97) L 04/19/17 03:25 Hgb 8.9 g/dL (11.5-15.4) L 04/19/17 03:25 Hct 29.4 % (35.3-44.9) L 04/19/17 03:25 MCHC 30.3 g/dL (31.6-35.5) L 04/19/17 03:25 RDW 14.7 % (11.5-14.5) H 04/19/17 03:25 MPV 9.2 fL (9.4-12.4) L 04/19/17 03:25 Band Neutrophils % 10.0 % (0-4) H 04/05/17 00:24 Neutrophils # 9.7 K/mcL (1.6-8.9) H 04/19/17 03:25 Eosinophils # 0.7 K/mcL (0.0-0.6) H 04/19/17 03:25 Nucleated RBCs/100 WBC 0.2 /100 WBC (0) H 04/16/17 05:00 Hypochromasia Present (Not Present) A 04/16/17 05:00 ABG pH 7.47 pH Units (7.32-7.45) H 04/18/17 04:57 ABG pCO2 54 mmHg (35-45) H 04/18/17 04:57 ABG pO2 56 mmHg (85-104) L 04/18/17 04:57 ABG HCO3 39 mEq/L (21-27) H 04/18/17 04:57 ABG Total CO2 41 mEq/L (20-26) H 04/18/17 04:57 ABG O2 Saturation 90 % (95-98) L 04/18/17 04:57 ABG Base Excess 14 mEq/L (-2 to 3) H 04/18/17 04:57 Carbon Dioxide 32 mEq/L (19-29) H 04/19/17 03:25 BUN 25 mg/dL (7-20) H 04/19/17 03:25 BUN/Creatinine Ratio 33 (6-26) H 04/19/17 03:25 Glucose 155 mg/dL (70-99) H 04/19/17 03:25 POC Glucose 216 (58-89) H 04/18/17 20:11 Calculated Osmolality 306 (280-300) H 04/19/17 03:25 Uric Acid 18.8 mg/dL (2.6-6.0) H 04/09/17 18:30 Magnesium 1.5 mg/dL (1.6-2.6) L 04/19/17 03:25 Creatine Kinase 349 Units/L (29-168) H 04/09/17 18:30 Serum Total Protein 5.6 g/dL (6.0-8.3) L 04/19/17 03:25 Albumin 1.9 g/dL (3.5-5.0) L 04/19/17 03:25 Globulin 3.7 g/dL (2.4-3.5) H 04/19/17 03:25 Albumin/Globulin Ratio 0.5 (1.1-2.2) L 04/19/17 03:25 Prealbumin 9.0 mg/dL (16.0-38.0) L 04/11/17 04:55 Triglycerides 246 mg/dL (< 150) H 04/10/17 08:46 Ur Specific [place] 1.028 (1.010-1.025) H 04/08/17 10:08 Protein/Creatinin Ratio 0.92 mg/mg (0-0.20) H 04/11/17 08:00 Urine Total Protein 59 mg/dL (1-14) H 04/11/17 08:00 General appearance: Present: no acute distress - Head Head exam: Present: atraumatic, normal inspection - ENT ENT exam: Present: mucous membranes moist - Respiratory Respiratory exam: Present: decreased breath sounds - Cardiovascular Cardiovascular exam: Present: RRR - GI/Abdominal GI/Abdominal exam: Present: normal bowel sounds, soft. Absent: tenderness - Extremities Exam Extremities exam: Absent: tenderness - Neurological Exam Neurological exam: Present: alert, oriented X3 - Psychiatric Psychiatric exam: Absent: agitated, anxious - Skin Skin exam: Present: dry, warm Palliative Quality Palliative Quality: Screen for Code Status: Yes, Screen for Goals of Care: Yes, Screen for Pain: Yes, If Pain Regimen Started, Initiate Bowel Regimen: Yes, Screen for Nausea/Vomitting: Yes Code Status: 04/04/17 23:14 Resuscitation Status: Active [RES] Routine Comment: Resuscitation Status: Full Code 04/13/17 10:32 Resuscitation Status: Active [RES] Routine Comment: Resuscitation Status: DNR-Comfort Care-Arrest - Labs CBC & Chem 7: 04/19/17 03:25 04/19/17 03:25 Labs: Laboratory Results - last 24 hr 04/17/17 04/18/17 04/18/17 23:14 03:10 06:53 WBC RBC Hgb Hct MCV MCH MCHC RDW Plt Count MPV Immature Gran % Seg Neutrophils % Lymphocytes % Monocytes % Eosinophils % Basophils % Neutrophils # Lymphocytes # Monocytes # Eosinophils # Basophils # Sodium Potassium Chloride Carbon Dioxide BUN Creatinine Est GFR ( Amer) Est GFR (Non-Af Amer) BUN/Creatinine Ratio Glucose POC Glucose 138 H 125 H 95 H Calculated Osmolality Calcium Magnesium Total Bilirubin AST ALT Alkaline Phosphatase Serum Total Protein Albumin Globulin Albumin/Globulin Ratio 04/18/17 04/18/17 04/18/17 12:25 16:58 20:11 WBC RBC Hgb Hct MCV MCH MCHC RDW Plt Count MPV Immature Gran % Seg Neutrophils % Lymphocytes % Monocytes % Eosinophils % Basophils % Neutrophils # Lymphocytes # Monocytes # Eosinophils # Basophils # Sodium Potassium Chloride Carbon Dioxide BUN Creatinine Est GFR ( Amer) Est GFR (Non-Af Amer) BUN/Creatinine Ratio Glucose POC Glucose 124 H 239 H 216 H Calculated Osmolality Calcium Magnesium Total Bilirubin AST ALT Alkaline Phosphatase Serum Total Protein Albumin Globulin Albumin/Globulin Ratio 04/19/17 04/19/17 03:25 03:25 WBC 12.9 H RBC 3.05 L Hgb 8.9 L Hct 29.4 L MCV 96.4 MCH 29.2 MCHC 30.3 L RDW 14.7 H Plt Count 234 MPV 9.2 L Immature Gran % 1.4 Seg Neutrophils % 75.7 Lymphocytes % 11.3 Monocytes % 6.1 Eosinophils % 5.2 Basophils % 0.3 Neutrophils # 9.7 H Lymphocytes # 1.5 Monocytes # 0.8 Eosinophils # 0.7 H Basophils # 0.0 Sodium 144 Potassium 3.7 Chloride 101 Carbon Dioxide 32 H BUN 25 H Creatinine 0.76 Est GFR ( Amer) > 60 Est GFR (Non-Af Amer) > 60 BUN/Creatinine Ratio 33 H Glucose 155 H POC Glucose Calculated Osmolality 306 H Calcium 8.7 Magnesium 1.5 L Total Bilirubin 0.4 AST 18 ALT 9 Alkaline Phosphatase 88 Serum Total Protein 5.6 L Albumin 1.9 L Globulin 3.7 H Albumin/Globulin Ratio 0.5 L - ABG Interpretation ABG results: ABG ABG pH 7.47 pH Units (7.32-7.45) H 04/18/17 04:57 ABG pCO2 54 mmHg (35-45) H 04/18/17 04:57 ABG pO2 56 mmHg (85-104) L 04/18/17 04:57 ABG O2 Saturation 90 % (95-98) L 04/18/17 04:57 Consult Discharge Plan - Plan Referrals: Dimitris Villaseñor, JARRETT [Primary Care Provider] - 04/29/17 11:00 am ()
--- NOTE | 2017-04-19 11:16 | Discharge Summary ---
<Jose Armando Orellana - Last Filed: 04/19/17 18:47> Date of Encounter: 04/19/17 - Discharge Diagnosis (1) Hypernatremia Status: Acute (2) Constipation Status: Acute Qualifiers: Constipation type: drug induced constipation Qualified Code(s): K59.03 - Drug induced constipation (3) Ileus Status: Acute (4) Hypertension Priority: Secondary Status: Chronic Qualifiers: Hypertension type: essential hypertension Qualified Code(s): I10 - Essential (primary) hypertension (5) Tobacco abuse Priority: Secondary Status: Chronic (6) Diabetes mellitus Priority: Secondary Status: Chronic Qualifiers: Diabetes mellitus type: type 2 Diabetes mellitus complication status: with kidney complications Diabetes mellitus complication detail: with chronic kidney disease Diabetes mellitus termite renewal inspector insulin use: with termite renewal inspector use Chronic kidney disease stage: stage 3 (moderate) Qualified Code(s): E11.22 - Type 2 diabetes mellitus with diabetic chronic kidney disease; N18.3 - Chronic kidney disease, stage 3 (moderate); N18.3 - Chronic kidney disease, stage 3 ( moderate); Z79.4 - termite renewal inspector (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 of insulin; Z79.4 - senior living ( 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 of insulin; Z79.4 - termite renewal inspector (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 of insulin; Z79.4 - senior living (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 of insulin (7) Chronic respiratory failure with hypoxia and hypercapnia Priority: Secondary Status: Chronic (8) Morbid obesity with BMI of 45.0-49.9, adult Priority: Secondary Status: Chronic - Discharge Medications Prescriptions: RX: Budesonide/Formoterol 160/4.5 [Symbicort 160/4.5] 2 puff IH BIDR #1 inhaler RX: Magnesium Oxide [Mag-Ox] 400 mg PO BID #14 tablet RX: Metoclopramide [Reglan] 5 mg PO QIDAC #120 tablet RX: Nicotine Patch [Nicoderm] 21 mg TD DAILY #30 patch.td24 RX: Sennosides/Docusate Sodium [Senna Plus] 2 each PO BID #60 tablet Home Medications: RX: Folic Acid 1 mg PO DAILY 05/23/15 [History] RX: Levothyroxine [Synthroid] 25 mcg PO DAILY 05/23/15 [History] RX: Losartan [Cozaar] 25 mg PO DAILY 05/23/15 [History] RX: metFORMIN [Glucophage] 1,000 mg PO BID 05/23/15 [History] RX: Gabapentin [Neurontin] 300 mg PO TID 10/25/15 [History] RX: Montelukast [Singulair] 10 mg PO DAILY 10/25/15 [History] RX: Oxygen 2.5 l .ROUTE AD 10/25/15 [History] RX: hydrOXYzine HCl [Hydroxyzine HCl] 25 mg PO TID PRN 10/25/15 [History] RX: FLUoxetine HCl [Fluoxetine HCl] 40 mg PO DAILY 05/21/16 [History] RX: Aspirin [Ecotrin] 325 mg PO DAILY 06/15/16 [History] RX: Ipratropium/Albuterol Neb [Duoneb] 3 ml IH Q6HR 06/15/16 [History] RX: Insulin Glargine,Hum.rec.anlog [Lantus Solostar] 40 unit SQ HS #1 06/17/16 [ Rx] RX: Fluticasone Propionate Nasal [Flonase] 2 spr NS DAILY 01/09/17 [History] RX: Albuterol Neb [Proventil Neb] 2.5 mg IH [id number] PRN inh 01/16/17 [Rx] RX: OxyCODONE Immed Rel [Roxicodone 5 MG] 5 mg PO Q6HR PRN #14 tab 01/16/17 [Rx] RX: diazePAM [Valium] 5 mg PO TID PRN #20 01/16/17 [Rx] RX: Furosemide [Lasix] 20 mg PO BID #28 tab 03/20/17 [Rx] RX: Bisacodyl [Dulcolax] 10 mg RC DAILY PRN #10 supp.rect 03/28/17 [Rx] RX: Carvedilol [Coreg] 6.25 mg PO BID 03/28/17 [History] RX: Docusate [Colace] 100 mg PO BID #60 capsule 03/28/17 [Rx] RX: Polyethylene Glycol 3350 [MiraLAX Powder Bulk 17.9 Oz] 1 scoop PO DAILY # 510 gm 03/28/17 [Rx] RX: Budesonide/Formoterol 160/4.5 [Symbicort 160/4.5] 2 puff IH BIDR #1 inhaler 04/19/17 [Rx] RX: Magnesium Oxide [Mag-Ox] 400 mg PO BID #14 tablet 04/19/17 [Rx] RX: Metoclopramide [Reglan] 5 mg PO QIDAC #120 tablet 04/19/17 [Rx] RX: Nicotine Patch [Nicoderm] 21 mg TD DAILY #30 patch.td24 04/19/17 [Rx] RX: Sennosides/Docusate Sodium [Senna Plus] 2 each PO BID #60 tablet 04/19/17 [ Rx] Allergies/Adverse Reactions: 3 Allergy/AdvReac Type Severity Reaction Status Date / Time acetaminophen [From Tylenol] Allergy Hives Verified 04/04/17 13:05 ibuprofen AdvReac Nausea Verified 04/04/17 13:05 NSAIDS (Non-Steroidal AdvReac Nausea Verified 04/04/17 13:05 Anti-Inflamma Procedures/tests Complete & Pending: Procedures Performed prior 72 hours Category Date Time Status EKG [ECG 12 lead ECG] [ECG] Routine Y 04/17/17 09:43 Ordered Date of admission: 04/04/17 23:15 Primary care physician: Dimitris Villaseñor CNP Consults: 04/04/17 23:18 Consult to Physician [CONS] Routine Consulting Provider: Jerardo Pedroza Reason for Consult: Bowel obstruction, severe constipation Call Completed: Yes 04/04/17 23:19 Consult to Occupational Therapy [CONS] Routine Comment: Evaluate, develop and implement POC Reason for Consult: Debilitated Consult to Physical Therapy [CONS] Routine Comment: Evaluate, develop and implement POC Reason for Consult: Needs placement Consult to Traveling Repair Accountant [CONS] Routine Reason for SW Consult: Placement 04/06/17 10:34 Consult to Pulmonology [CONS] Routine Consulting Provider: Pulm Crit Care & Sleep Ana Reason for Consult: oxygen saturations off of the bi-pap Time Notified: 10:34 Call Completed: Yes 04/08/17 01:51 Consult to Invasive Line Access Team [CONS] Routine Reason for Consult: Limited access. Pt receiving IV antibioitics. Line Type: EPIV 04/08/17 17:13 Consult to Nephrology [CONS] Routine Consulting Provider: Kidney [place]/CON/SAIMA/FELIPA Reason for Consult: GUERRERO Time Notified: 17:00 Call Completed: Yes 04/10/17 08:31 PICC LINE [Consult to Invasive Line Access Team] [CONS] Routine Reason for Consult: assess for tpn Line Type: PICC PICC line indications: Parental nutrition Time Notified: 08:32 Call Completed: No consult to snowmaker [Consult to Nutrition] [CONS] Routine Comment: verbal order per Dr. Turner Consulting Provider: NUTRITION Reason for Dietary Consult: TPN Start and Manage 04/10/17 08:33 dietary consult [Consult to Nutrition] [CONS] Routine Comment: Consulting Provider: NUTRITION Reason for Dietary Consult: TPN Start and Manage 04/10/17 10:12 Consult to Invasive Line Access Team [CONS] Routine Reason for Consult: Picc Line Insertion Line Type: PICC 04/11/17 12:00 Consult to Gastroenterology [CONS] Routine Consulting Provider: Gastroenterology Ana Reason for Consult: ileus Time Notified: 12:01 Call Completed: Yes 04/12/17 14:34 Consult to Palliative Care [CONS] Routine Comment: Consulting Provider: Palliative Care Ana Reason for Consult: code status options, comfort Call Completed: No 04/15/17 14:42 Consult to Speech Therapy [CONS] Routine Comment: Evaluate, develop and implement POC Reason for Consult: EVAL. HISTORY OF STROKE AND THICKENED LIQUIDS. Time Notified: 14:42 Call Completed: Yes 04/17/17 16:55 Consult to Wound Care [CONS] Routine Reason for Consult: questionable wounds/scabs to R toes Call Completed: No 04/18/17 15:23 Consult to Physical Therapy [CONS] Stat Comment: Evaluate, develop and implement POC Reason for Consult: Please assess patient in am, patient agrees 04/19/17 14:43 OT [Consult to Occupational Therapy] [CONS] Stat Comment: Evaluate, develop and implement POC Reason for Consult: Reevaluate, please - Patient Status Disposition: Home, Self-Care Condition: Good - Discharge Instructions Instructions: Acute Kidney Injury (DC), Chronic Obstructive Pulmonary Disease ( DC), Acute Abdominal Pain (DC) Follow Up With: Dimitris Villaseñor CNP [Primary Care Provider] - 04/29/17 11:00 am () Jamie Keene MD [Partnered Physician] - (Please call to make hospital follow-up appointment) Vernell Arndt MD [Partnered Physician] - (Please call to arrange for hospital follow-up appointment) Hospital course: Ms. Hounshell is a 61 year old female - Time Spent with Patient Total time spent providing and/or coordinating discharge services: 39min - Constitutional Vitals: Temp Pulse Resp BP Pulse Ox 97.4 F L 91 18 116/68 89 04/19/17 11:01 04/19/17 11:01 04/19/17 15:43 04/19/17 11:01 04/19/17 15:43 - Attending Attestation I examined this patient and my medical decision-making was reviewed with the Resident Physician on 04/19/17. I agree with the documented findings, disposition and treatment plan as described except to the extent set forth below. Ms Yang has been admitted for obstipation and ileus. She has been tolerating PO diet. She is afebrile with stable vitals and ready for discharge home. Exam Alert. Comfortable Mucus membranes dry Heart distant Lungs clear Abd nontender Plan D/C home when arranged Pt refusing SNF [facility] has been arranged as she has qualified with overnight study and blood gas. <Lidia Cordova - Last Filed: 04/21/17 15:09> Date of Encounter: 04/21/17 Time of Encounter: 08:25 - Discharge Diagnosis (1) Acute and chronic respiratory failure ([id number]) Priority: Primary Status: Acute Comments: Patient presented with worsening respiratory status and increasing oxygen requirements. Has underlying COPD with abseline O2 requirements of 2L. Pulmonology following, thought to be secondary due to potential spinting of diaphragm due to constipationa nd distension of abdomens. Patient was back down to baseline oxygen requirements prior to discharge Qualifiers: Respiratory failure complication: hypoxia and hypercapnia Qualified Code(s) : J96.21 - Acute and chronic respiratory failure with hypoxia; J96.22 - Acute and chronic respiratory failure with hypercapnia; J96.22 - Acute and chronic respiratory failure with hypercapnia; J96.22 - Acute and chronic respiratory failure with hypercapnia (2) Tracheomalacia, acquired Priority: Secondary Status: Chronic (3) COPD (chronic obstructive pulmonary disease) Priority: Secondary Status: Chronic Comments: Chronic. Known history of COPD on 2L nasal canula. Maintained on bronchodilators No evidence of acute exacerbation during hospital stay Qualifiers: COPD type: unspecified COPD Qualified Code(s): J44.9 - Chronic obstructive pulmonary disease, unspecified (4) Acute kidney injury superimposed on chronic kidney disease Priority: Secondary Status: Resolved Comments: Known history of CKD stage III presented with increased creatinine. Received IV fluids and creatinine decreased to 0.73 with GFR > 60 d/c lasix and IV fluids [place] nephrotoxic medications Monitor strict I and O's (5) Constipation Priority: Primary Status: Acute Comments: History of constipation Received water enemas and bowel regimen while inpatient Qualifiers: Constipation type: drug induced constipation Qualified Code(s): K59.03 - Drug induced constipation (6) Ileus Priority: Primary Status: Acute Comments: CT abdomen/ pelvis concerning for SBP vs ileus. Surgery assessed, did not consider pateint good surgical candate and reccomended conservative measures s/p NG tube and TPN, both discontinued Continiue reglan 5mg prior to meals and at bedtime (7) Type 2 diabetes mellitus Priority: Secondary Status: Acute Comments: Chronic. received levemir 20 units BID and placed on HDSS with meals . Qualifiers: Diabetes mellitus complication status: without complication Diabetes mellitus termite renewal inspector insulin use: with group home use Qualified Code(s): E11.9 - Type 2 diabetes mellitus without complications; Z79.4 - termite renewal inspector (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 of insulin; Z79.4 - senior living (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 of insulin; Z79.4 - senior living ( 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 of insulin; Z79.4 - termite renewal inspector (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 of insulin (8) Hypomagnesemia Priority: Secondary Status: Acute Comments: Was foudn to have decreased magnesium to 1.1. Received 2G IV. Discharged on 400 mg by mouth Continue to monitor outpatient Procedures/tests Complete & Pending: Procedures Performed prior 72 hours Category Date Time Status EKG [ECG 12 lead ECG] [ECG] Routine Y 04/17/17 09:43 Ordered Date of admission: 04/04/17 23:15 Primary care physician: Dimitris Villaseñor CNP Consults: 04/04/17 23:18 Consult to Physician [CONS] Routine Consulting Provider: Jerardo Pedroza Reason for Consult: Bowel obstruction, severe constipation Call Completed: Yes 04/04/17 23:19 Consult to Occupational Therapy [CONS] Routine Comment: Evaluate, develop and implement POC Reason for Consult: Debilitated Consult to Physical Therapy [CONS] Routine Comment: Evaluate, develop and implement POC Reason for Consult: Needs placement Consult to Traveling Repair Accountant [CONS] Routine Reason for SW Consult: Placement 04/06/17 10:34 Consult to Pulmonology [CONS] Routine Consulting Provider: Pulm Crit Care & Sleep Ana Reason for Consult: oxygen saturations off of the bi-pap Time Notified: 10:34 Call Completed: Yes 04/08/17 01:51 Consult to Invasive Line Access Team [CONS] Routine Reason for Consult: Limited access. Pt receiving IV antibioitics. Line Type: EPIV 04/08/17 17:13 Consult to Nephrology [CONS] Routine Consulting Provider: Kidney Ana/CON/SAIMA/FELIPA Reason for Consult: GUERRERO Time Notified: 17:00 Call Completed: Yes 04/10/17 08:31 PICC LINE [Consult to Invasive Line Access Team] [CONS] Routine Reason for Consult: assess for tpn Line Type: PICC PICC line indications: Parental nutrition Time Notified: 08:32 Call Completed: No consult to snowmaker [Consult to Nutrition] [CONS] Routine Comment: verbal order per Dr. Turner Consulting Provider: NUTRITION Reason for Dietary Consult: TPN Start and Manage 04/10/17 08:33 dietary consult [Consult to Nutrition] [CONS] Routine Comment: Consulting Provider: NUTRITION Reason for Dietary Consult: TPN Start and Manage 04/10/17 10:12 Consult to Invasive Line Access Team [CONS] Routine Reason for Consult: Picc Line Insertion Line Type: PICC 04/11/17 12:00 Consult to Gastroenterology [CONS] Routine Consulting Provider: Gastroenterology Ana Reason for Consult: ileus Time Notified: 12:01 Call Completed: Yes 04/12/17 14:34 Consult to Palliative Care [CONS] Routine Comment: Consulting Provider: Palliative Care [place] Reason for Consult: code status options, comfort Call Completed: No 04/15/17 14:42 Consult to Speech Therapy [CONS] Routine Comment: Evaluate, develop and implement POC Reason for Consult: EVAL. HISTORY OF STROKE AND THICKENED LIQUIDS. Time Notified: 14:42 Call Completed: Yes 04/17/17 16:55 Consult to Wound Care [CONS] Routine Reason for Consult: questionable wounds/scabs to R toes Call Completed: No 04/18/17 15:23 Consult to Physical Therapy [CONS] Stat Comment: Evaluate, develop and implement POC Reason for Consult: Please assess patient in am, patient agrees 04/19/17 14:43 OT [Consult to Occupational Therapy] [CONS] Stat Comment: Evaluate, develop and implement POC Reason for Consult: Reevaluate, please Discharging clinician: Jose Armando Orellana - Patient Status Functional capacity at discharge: uses cane/walker Overall status at discharge: patient is progressing back to baseline - Diet and Activity Activity: ambulate only with your walker, resume usual activities as tolerated, wear oxygen at night Diet: diabetic diet Hospital course: Ms. Yang is a 61 year old female who was admitted for abdominal pain with CT abdomen/pelvis concerning for small bowel obstruction vs ileus. She was evaluated by surgery and was not deemed to be a good surgical candidate and recommended conservative measures. She had an NG tube placed and was placed on TPN. She was agrgessively treated with bowel regimen including water enemas. She ahd muslim of bowel function. Ng tube was clamped and she was able to tolerate clear liquids. TPN was turned down and she was advanced to her regular diet. She was evalauted by GI while inpatient who recommended addition of reglan before meals. She was discharged home on 5 mg reglan before meals and at bedtime, she understood risks of tardative dyskinesia. Due to presence of NG tube she had hypernatremia. This was corrected with IV fluids and corrected once patient was placed on normal diet and NG tube was removed the hypernatremia corrected. She was also found to have acute kidney injury with a known baseline of CKD satge3. Thsi was treated with IV fludis and her lasix was held. Her creatinine improved. She was weaned back down to her home oxygen requirements of 2L nasal canula. She was maintained on her bronchodilators. She was given levemir 20 units BID and a high dose sliding scale. She was discharged home on her home insulin regimen. She was foudn to have a decreased magnesium level, this was replaced with IV magnesium and she was discharged on oral magnesium. She should have her magnesium rechecked after discharge. She was able to walk with a walker on her own prior to discharge. She was discharged home with instructions to follow up with her PCP. - Time Spent with Patient Total time spent providing and/or coordinating discharge services: - Constitutional Vitals: Temp Pulse Resp BP Pulse Ox 98.1 F 75 17 107/71 90 04/20/17 06:36 04/20/17 06:36 04/20/17 07:56 04/20/17 06:36 04/20/17 07:56 General appearance: Present: cooperative, pleasant, no acute distress, obese, answers questions appropriately - Head Head exam: Present: atraumatic, normocephalic - ENT ENT exam: Present: mucous membranes moist - Neck Neck exam general surgery: Present: supple, trachea midline - Respiratory Respiratory exam: Present: decreased breath sounds. Absent: rales, rhonchi, stridor, wheezes - Cardiovascular Cardiovascular exam: Present: RRR, +S1, +S2. Absent: clicks, diastolic murmur, gallop, rubs, systolic murmur - GI/Abdominal GI/Abdominal exam: Present: normal bowel sounds, soft. Absent: distended, guarding, rebound, tenderness - Extremities Exam Extremities exam: Present: normal capillary refill - Skin Skin exam: Present: dry, warm <Earl Flores - Last Filed: 04/22/17 08:27> Date of Encounter: 04/22/17 Time of Encounter: 09:00 - Discharge Diagnosis (1) Hypernatremia Priority: Primary Status: Acute (2) Constipation Priority: Primary Status: Acute Qualifiers: Constipation type: drug induced constipation Qualified Code(s): K59.03 - Drug induced constipation (3) Ileus Priority: Primary Status: Acute (4) Acute kidney injury superimposed on chronic kidney disease Priority: Secondary Status: Resolved (5) COPD (chronic obstructive pulmonary disease) Priority: Secondary Status: Chronic Qualifiers: COPD type: unspecified COPD Qualified Code(s): J44.9 - Chronic obstructive pulmonary disease, unspecified (6) Type 2 diabetes mellitus Priority: Secondary Status: Acute Qualifiers: Diabetes mellitus complication status: without complication Diabetes mellitus termite renewal inspector insulin use: with termite renewal inspector use Qualified Code(s): E11.9 - Type 2 diabetes mellitus without complications; Z79.4 - senior living (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 of insulin; Z79.4 - termite renewal inspector (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 of insulin; Z79.4 - termite renewal inspector ( 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 of insulin; Z79.4 - senior living (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 of insulin (7) Hypomagnesemia Priority: Secondary Status: Acute (8) DVT prophylaxis Priority: Secondary Status: Acute Procedures/tests Complete & Pending: Procedures Performed prior 72 hours Category Date Time Status EKG [ECG 12 lead ECG] [ECG] Routine Y 04/17/17 09:43 Ordered Date of admission: 04/04/17 23:15 Primary care physician: Dimitris Villaseñor CNP Consults: 04/04/17 23:18 Consult to Physician [CONS] Routine Consulting Provider: Jerardo Pedroza Reason for Consult: Bowel obstruction, severe constipation Call Completed: Yes 04/04/17 23:19 Consult to Occupational Therapy [CONS] Routine Comment: Evaluate, develop and implement POC Reason for Consult: Debilitated Consult to Physical Therapy [CONS] Routine Comment: Evaluate, develop and implement POC Reason for Consult: Needs placement Consult to Traveling Repair Accountant [CONS] Routine Reason for SW Consult: Placement 04/06/17 10:34 Consult to Pulmonology [CONS] Routine Consulting Provider: Pulm Crit Care & Sleep Ana Reason for Consult: oxygen saturations off of the bi-pap Time Notified: 10:34 Call Completed: Yes 04/08/17 01:51 Consult to Invasive Line Access Team [CONS] Routine Reason for Consult: Limited access. Pt receiving IV antibioitics. Line Type: EPIV 04/08/17 17:13 Consult to Nephrology [CONS] Routine Consulting Provider: Kidney Ana/CON/SAIMA/FELIPA Reason for Consult: GUERRERO Time Notified: 17:00 Call Completed: Yes 04/10/17 08:31 PICC LINE [Consult to Invasive Line Access Team] [CONS] Routine Reason for Consult: assess for tpn Line Type: PICC PICC line indications: Parental nutrition Time Notified: 08:32 Call Completed: No consult to snowmaker [Consult to Nutrition] [CONS] Routine Comment: verbal order per Dr. Turner Consulting Provider: NUTRITION Reason for Dietary Consult: TPN Start and Manage 04/10/17 08:33 dietary consult [Consult to Nutrition] [CONS] Routine Comment: Consulting Provider: NUTRITION Reason for Dietary Consult: TPN Start and Manage 04/10/17 10:12 Consult to Invasive Line Access Team [CONS] Routine Reason for Consult: Picc Line Insertion Line Type: PICC 04/11/17 12:00 Consult to Gastroenterology [CONS] Routine Consulting Provider: Gastroenterology Ana Reason for Consult: ileus Time Notified: 12:01 Call Completed: Yes 04/12/17 14:34 Consult to Palliative Care [CONS] Routine Comment: Consulting Provider: Palliative Care Ana Reason for Consult: code status options, comfort Call Completed: No 04/15/17 14:42 Consult to Speech Therapy [CONS] Routine Comment: Evaluate, develop and implement POC Reason for Consult: EVAL. HISTORY OF STROKE AND THICKENED LIQUIDS. Time Notified: 14:42 Call Completed: Yes 04/17/17 16:55 Consult to Wound Care [CONS] Routine Reason for Consult: questionable wounds/scabs to R toes Call Completed: No 04/18/17 15:23 Consult to Physical Therapy [CONS] Stat Comment: Evaluate, develop and implement POC Reason for Consult: Please assess patient in am, patient agrees Discharging clinician: Earl Flores Anticipated date of discharge: 04/19/17 - Patient Status Functional capacity at discharge: uses cane/walker Overall status at discharge: patient is progressing back to baseline - Diet and Activity Activity: as per physical therapy, wear oxygen at night Diet: diabetic diet Hospital course: Ms. Yang is a 61 year old female - Time Spent with Patient Total time spent providing and/or coordinating discharge services: - Constitutional Vitals: Temp Pulse Resp BP Pulse Ox 97.4 F L 91 19 116/68 94 04/19/17 11:01 04/19/17 11:01 04/19/17 11:01 04/19/17 11:01 04/19/17 11:01 General appearance: Present: A&O X 3, morbidly obese, no acute distress
[2017-04-19] MEDS: Sennosides/Docusate Sodium TABLET PO SCH (21:35)
[2017-04-20] MEDS: Ipratropium/Albuterol Neb 3 ML IH SCH ×3 (03:52→11:00)
[2017-04-20] MEDS: *HR* OxyCODONE Immed Rel 5 MG TABLET PO PRN (05:11)
[2017-04-20] MEDS: Levothyroxine 25 MCG TABLET PO SCH (05:12)
[2017-04-20] MEDS: *HR* Heparin 5,000 UNIT/ML VIAL SQ SCH (05:12)
[2017-04-20 06:38] VITALS: BP 107/71
[2017-04-20] MEDS: Insulin LISPRO 300 UNITS/3 ML VIAL SQ SCH (07:49)
[2017-04-20] MEDS: Budesonide/Formoterol 160/4.5 MDI IH SCH (07:54)
[2017-04-20] MEDS: Bisacodyl 10 MG RECTAL SUPPOSITORY RC SCH (09:56)
[2017-04-20] MEDS: Magnesium Oxide 400 MG TABLET PO SCH (09:57)
[2017-04-20] MEDS: Nicotine 21 MG PATCH.TD24 TD SCH (09:57)
[2017-04-20] MEDS: Sennosides/Docusate Sodium TABLET PO SCH (09:57)
[2017-04-20] MEDS: FLUoxetine 20 MG CAPSULE PO SCH (09:57)
[2017-04-20] MEDS: Insulin DETEMIR 100 UNIT/ML X5UNITS SQ SCH (09:58)
--- NOTE | 2017-04-20 15:11 | Internal Med Progress Note ---
Date of Encounter: 04/20/17 Time of Encounter: 08:30 - Assessment and plan (1) Hypernatremia Status: Acute Assessment and plan: Improved. Follow as outpatient. (2) Constipation Status: Acute Assessment and plan: Continue PO Reglan for motility. Follow with PCP. Qualifiers: Constipation type: drug induced constipation Qualified Code(s): K59.03 - Drug induced constipation (3) Ileus Status: Acute Assessment and plan: As discussed above. - Patient will have to follow up with gastroenterology post discharge. (4) Hypertension Status: Chronic Assessment and plan: Controlled. Qualifiers: Hypertension type: essential hypertension Qualified Code(s): I10 - Essential (primary) hypertension (5) Tobacco abuse Status: Chronic Assessment and plan: Cessation counselling. (6) Diabetes mellitus Status: Chronic Assessment and plan: Continue home insulin. Diet control. 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 She was to be discharged yesterday but was held till today for home arrangements. This morning she is feeling OK. No CP or SOB. Eating breakfast at this time. - Constitutional Vitals: Temp Pulse Resp BP Pulse Ox 98.1 F 75 17 107/71 90 04/20/17 06:36 04/20/17 06:36 04/20/17 07:56 04/20/17 06:36 04/20/17 07:56 General appearance: Present: A&O X 3, morbidly obese - Head Head exam: Present: atraumatic, normocephalic - Eye Eye exam: Present: EOMI, conjuntiva pink - ENT ENT exam: Present: mucous membranes moist - Respiratory Respiratory exam: Present: decreased breath sounds, rhonchi. Absent: rales, wheezes - Cardiovascular Cardiovascular exam: Present: RRR. Absent: tachycardia - GI/Abdominal GI/Abdominal exam: Present: soft. Absent: tenderness - Extremities Exam Extremities exam: Present: warm. Absent: tenderness - Neurological Exam Neurological exam: Present: alert, oriented X3 - Skin Skin exam: Present: dry, warm Internal Medicine: Result - Labs CBC & Chem 7: 04/19/17 03:25 04/19/17 03:25 - ABG Interpretation ABG results: ABG ABG pH 7.47 pH Units (7.32-7.45) H 04/18/17 04:57 ABG pCO2 54 mmHg (35-45) H 04/18/17 04:57 ABG pO2 56 mmHg (85-104) L 04/18/17 04:57 ABG O2 Saturation 90 % (95-98) L 04/18/17 04:57 Consult Discharge Plan - Plan Instructions: Acute Kidney Injury (DC), Chronic Obstructive Pulmonary Disease ( DC), Acute Abdominal Pain (DC) Referrals: Dimitris Villaseñor CNP [Primary Care Provider] - 04/29/17 11:00 am () Vernell Arndt MD [Partnered Physician] - (Please call to arrange for hospital follow-up appointment) Jamie Keene MD [Partnered Physician] - (Please call to make hospital follow-up appointment) Prescriptions: Budesonide/Formoterol 160/4.5 [Symbicort 160/4.5] 2 puff IH BIDR #1 inhaler Magnesium Oxide [Mag-Ox] 400 mg PO BID #14 tablet Metoclopramide [Reglan] 5 mg PO QIDAC #120 tablet Nicotine Patch [Nicoderm] 21 mg TD DAILY #30 patch.td24 Sennosides/Docusate Sodium [Senna Plus] 2 each PO BID #60 tablet
== END 2017-04-20 11:30 | disposition home or self-care (01) | DRG 388 ==
LOC: 3BNU → SUATTDRO 23:15 → 2NNU 04-09 17:09 → 2ANU 04-17 15:25
PROVIDERS: ADMIT Internal Medicine; ATTEND Internal Medicine

== ENCOUNTER 2017-04-23 22:05 | Inpatient (IN) ==
[2017-04-24] MEDS ORDERED: *HR* Morphine 2 MG/ML SYRINGE IVP PRN (00:36)
[2017-04-24] MEDS ORDERED: Ondansetron 4 MG/2 ML VIAL IVP PRN (00:36)
[2017-04-24] MEDS ORDERED: Naloxone 0.4 MG/ML INJ IVP PRN (00:36)
[2017-04-24] MEDS ORDERED: *HR* Promethazine 25 MG/ML VIAL IVP PRN (00:36)
[2017-04-24] MEDS ORDERED: Cefepime HCl 1,000 MG in D5% in Water (Mini-Bag+) 100 ML IVPB SCH (01:00)
[2017-04-24] MEDS ORDERED: Cefepime HCl 1,000 MG in Water for inj. (sterile) 10 ML IVP SCH (01:00)
[2017-04-24] MEDS ORDERED: Levofloxacin 500 MG/100 ML 500 MG/100 ML BAG IVPB SCH (01:00)
[2017-04-24] MEDS ORDERED: hydrOXYzine pamoate 25 MG CAPSULE PO PRN (01:05)
--- NOTE | 2017-04-24 01:11 | Internal Med History&Physical ---
Date of Encounter: 04/24/17 Time of Encounter: 01:11 Assessment and Plan (1) SIRS (systemic inflammatory response syndrome) Current visit: Yes Status: Acute Will admit the pt into tele She does meet SIRS criteria with elevated WBC, Source of inf as MLL Pneumonia started her on empirical abx (2) Pneumonia Current visit: No Status: Resolved Reviewed her CXR by myself showed RML, RLL and LLL infiltrates mostly bacterial PNA Will start her on empirical abx Cefepime + Levaquin She never had MRSA ..may not need Vanco Blood cx drawn a [facility] [facility] sent for sputum cx, Legionella, Strep and Mycoplasma Qualifiers: Pneumonia type: due to unspecified organism Laterality: left Lung location: lower lobe of lung Qualified Code(s): J18.1 - Lobar pneumonia, unspecified organism (3) Acute on chronic respiratory failure with hypoxia and hypercapnia Current visit: Yes Status: Acute Mostly due to Pneumonia and COPD exacerbation Reviewed her ABG from ER.. showed chronic hypercapnea -- well compensated Will put her on BiPAP QHS + PRN during day time Duoneb LEONA + INH steroids Also started her on high dose IV steroids Continuous pulse Oxy for 24hrs (4) COPD exacerbation Current visit: No Status: Acute (5) Hypertension Current visit: No Status: Chronic resumed home meds Qualifiers: Hypertension type: essential hypertension Qualified Code(s): I10 - Essential (primary) hypertension (6) Tobacco use Current visit: No Status: Chronic counseled to quit pt did mentioned she did not smoke since she left the hospital cont nicotine patch (7) DVT prophylaxis Current visit: No Status: Acute on Lovenox (8) Anxiety Current visit: No Status: Chronic resumed home med Valium (9) Type 2 diabetes mellitus Current visit: No Status: Acute on ISS + Lantus Qualifiers: Diabetes mellitus complication status: without complication Diabetes mellitus fpc insulin use: with fpc use Qualified Code(s): E11.9 - Type 2 diabetes mellitus without complications; 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 Yang is a 61 year old female with multiple medical comorbidities including type 2 diabetes, CVA, COPD, tobacco abuse, morbid obesity, CAD, chronic hypoxic respiratory failure, chronic hypercapneic resp failure on BiPAP now, also who was in this hospital for almost 15 days for constipation / ileus / hypercapneic resp failure got d/c home on 04/19/17 with BiPAP . Apparently pt has been having worseni SOB since then, with cold, cough and greenish expectation. She went to [place] ER today with severe hypoxia Spo2 in 80's on 3 lit O2.. She was placed on 15 lit Venturi mask and her oxygenation improved. Her CXR showed patchy infiltrates in Rt and Left lower lobes. Pt was sent to our hospital for further care. When I examined her here, she is alert, awake and O x 3. Denied any CP. Currently on Venturi mask. she is on mild resp distress, however able to finish full sentence with out any pause. Past Med Surg Social Fam HX - Past Medical History Medical history: arthritis, asthma, COPD, coronary artery disease, CVA, diabetes , GERD, hyperlipidemia, hypertension, thyroid disease, TIA Psychiatric history: anxiety, depression - Past Surgical History Surgical History: breast surgery, orthopedic, other, other - Social History Smoking Status: Current every day smoker Smokeless Tobacco Status: No Alcohol use: none Drug use: none - Family History Mother Living Status: Hx Family Cardiac Disorders: Yes Hx Family Respiratory Disorders: Yes (emphysema) Hx Family Cancer: Yes (uterine cancer) Father Living Status: Hx Family Cardiac Disorders: Yes Internal Medicine - H&P: Meds Folic Acid 1 mg PO DAILY 05/23/15 [History] Levothyroxine [Synthroid] 25 mcg PO DAILY 05/23/15 [History] Losartan [Cozaar] 25 mg PO DAILY 05/23/15 [History] metFORMIN [Glucophage] 1,000 mg PO BID 05/23/15 [History] Gabapentin [Neurontin] 300 mg PO TID 10/25/15 [History] Montelukast [Singulair] 10 mg PO DAILY 10/25/15 [History] Oxygen 2.5 l .ROUTE AD 10/25/15 [History] hydrOXYzine HCl [Hydroxyzine HCl] 25 mg PO TID PRN 10/25/15 [History] FLUoxetine HCl [Fluoxetine HCl] 40 mg PO DAILY 05/21/16 [History] Aspirin [Ecotrin] 325 mg PO DAILY 06/15/16 [History] Ipratropium/Albuterol Neb [Duoneb] 3 ml IH Q6HR 06/15/16 [History] Insulin Glargine,Hum.rec.anlog [Lantus Solostar] 40 unit SQ HS #1 06/17/16 [Rx] Fluticasone Propionate Nasal [Flonase] 2 spr NS DAILY 01/09/17 [History] Albuterol Neb [Proventil Neb] 2.5 mg IH [id number] PRN inh 01/16/17 [Rx] OxyCODONE Immed Rel [Roxicodone 5 MG] 5 mg PO Q6HR PRN #14 tab 01/16/17 [Rx] diazePAM [Valium] 5 mg PO TID PRN #20 01/16/17 [Rx] Furosemide [Lasix] 20 mg PO BID #28 tab 03/20/17 [Rx] Bisacodyl [Dulcolax] 10 mg RC DAILY PRN #10 supp.rect 03/28/17 [Rx] Carvedilol [Coreg] 6.25 mg PO BID 03/28/17 [History] Docusate [Colace] 100 mg PO BID #60 capsule 03/28/17 [Rx] Polyethylene Glycol 3350 [MiraLAX Powder Bulk 17.9 Oz] 1 scoop PO DAILY #510 gm 03/28/17 [Rx] Budesonide/Formoterol 160/4.5 [Symbicort 160/4.5] 2 puff IH BIDR #1 inhaler 12/27 [Rx] Magnesium Oxide [Mag-Ox] 400 mg PO BID #14 tablet 04/19/17 [Rx] Metoclopramide [Reglan] 5 mg PO QIDAC #120 tablet 04/19/17 [Rx] Nicotine Patch [Nicoderm] 21 mg TD DAILY #30 patch.td24 04/19/17 [Rx] Sennosides/Docusate Sodium [Senna Plus] 2 each PO BID #60 tablet 04/19/17 [Rx] 3 Allergy/AdvReac Type Severity Reaction Status Date / Time acetaminophen [From Tylenol] Allergy Hives Verified 04/04/17 13:05 ibuprofen AdvReac Nausea Verified 04/04/17 13:05 NSAIDS (Non-Steroidal AdvReac Nausea Verified 04/04/17 13:05 Anti-Inflamma All Systems PM: A 10-system review of systems was performed and is negative for pertinent findings except as documented above in the HPI. Review of systems: All the systems are reviewed everything is benign except the systems and symptoms I mentioned in the history of present illness - Constitutional Vitals: Temp Pulse Resp BP Pulse Ox 97.6 F 79 17 97/65 96 04/24/17 00:06 04/24/17 00:06 04/24/17 00:06 04/24/17 00:06 04/24/17 00:06 General appearance: Present: mild distress, A&O X 3, answers questions appropriately - Head Head exam: Present: atraumatic, normal inspection - Neck Neck exam general surgery: Present: supple - Respiratory Respiratory exam: Present: decreased breath sounds, respiratory distress (mild) , wheezes (moderate). Absent: rales, rhonchi - Cardiovascular Cardiovascular exam: Present: RRR, +S1, +S2. Absent: tachycardia - GI/Abdominal GI/Abdominal exam: Present: normal bowel sounds, soft. Absent: rebound, rigid, tenderness - Extremities Exam Extremities exam: Absent: calf tenderness, pedal edema, tenderness - Back Exam Back exam: Absent: CVA tenderness (L), CVA tenderness (R) - Neurological Exam Neurological exam: Present: alert, oriented X3, no focal deficits - Psychiatric Psychiatric exam: Present: normal affect, normal mood - Skin Skin exam: Absent: rash
[2017-04-24] MEDS ORDERED: *HR* Dextrose 50 % in Water (Syg) 50 ML SYRINGE IVP PRN (01:26)
[2017-04-24] MEDS ORDERED: Dextrose Gel 15 GM PO PRN ×2 (01:26)
[2017-04-24] MEDS ORDERED: D5% in Water 1,000 ML IVC PRN (01:26)
[2017-04-24 01:47] LABS: Basophils % 0.2 %; Eosinophils % 0.1 %; Hematocrit 34.8 % (35.3-44.9); Immature Granulocytes % 0.6 % (0-4); Lymphocytes # 0.5 K/mcL (0.6-4.6); Lymphocytes % 3.9 %; Mean Corpuscular HGB Conc 30.2 g/dL (31.6-35.5); Mean Corpuscular Hemoglobin 29.2 pg (28.0-33.3); Mean Corpuscular Volume 96.9 fL (83.0-100.0); Mean Platelet Volume 9.9 fL (9.4-12.4); Monocytes # 0.1 K/mcL (0.0-1.3); Monocytes % 0.6 %; Neutrophils # 13.2 K/mcL (1.6-8.9); Nucleated Red Blood Cells 0.1 /100 WBC (0); Platelet Count 449 K/mcL (140-400); Red Blood Count 3.59 M/mcL (3.82-4.97); Red Cell Distribution Width 15.6 % (11.5-14.5); Segmented Neutrophils % 94.6 %
[2017-04-24] MEDS: Ipratropium/Albuterol Neb 3 ML IH SCH ×6 (01:58→19:46)
[2017-04-24 02:01] LABS: Alanine Aminotransferase 12 Units/L (0-55); Albumin 2.3 g/dL (3.5-5.0); Albumin/Globulin Ratio 0.6 (1.1-2.2); Alkaline Phosphatase 89 Units/L (38-126); Aspartate Amino Transferase 15 Units/L (5-34); BUN/Creatinine Ratio 10 (6-26); Bilirubin,Total 0.4 mg/dL (0.2-1.2); Blood Urea Nitrogen 11 mg/dL (7-20); Calcium 8.5 mg/dL (8.6-10.8); Carbon Dioxide 30 mEq/L (19-29); Chloride 98 mEq/L (98-109); Globulin 4.1 g/dL (2.4-3.5); Glucose 215 mg/dL (70-99); Magnesium 1.2 mg/dL (1.6-2.6); Osmolality,Calculated 300 (280-300); Potassium 4.1 mEq/L (3.5-4.5); Sodium 142 mEq/L (136-145); Total Protein 6.4 g/dL (6.0-8.3); eGFR For African Americans > 60 (> 60); eGFR For Non-African Americans 51 (> 60)
[2017-04-24 02:04] LABS: Hemoglobin 10.5 g/dL (11.5-15.4)
[2017-04-24] MEDS: *HR* OxyCODONE Immed Rel 5 MG TABLET PO PRN ×3 (02:22→21:30)
[2017-04-24] MEDS: diazePAM 5 MG TABLET PO PRN (02:22)
[2017-04-24] MEDS: Insulin LISPRO 300 UNITS/3 ML VIAL SQ SCH ×5 (02:23→21:32)
[2017-04-24] MEDS: Insulin DETEMIR 100 UNIT/ML X5UNITS SQ SCH ×2 (02:23→21:29)
[2017-04-24 02:26] LABS: Platelet Estimate Increased (Normal)
[2017-04-24 02:27] LABS: Microcytosis Present (Not Present); Toxic Granulation Present (Not Present)
[2017-04-24] MEDS: *HR* Enoxaparin 40 MG/0.4 ML SYRINGE SQ SCH (05:59)
[2017-04-24] MEDS: MethylPREDNISolone 40 MG/ML VIAL IVP SCH ×3 (05:59→16:48)
[2017-04-24] MEDS: Budesonide/Formoterol 160/4.5 MDI IH SCH ×2 (08:12→19:46)
[2017-04-24] MEDS: FLUoxetine 20 MG CAPSULE PO SCH (08:33)
[2017-04-24] MEDS: Fluticasone Propionate Nasal 50 MCG/SPRAY BOTTLE NS SCH (08:34)
[2017-04-24] MEDS: Gabapentin 300 MG CAPSULE PO SCH ×3 (08:34→21:30)
[2017-04-24] MEDS: Levothyroxine 25 MCG TABLET PO SCH (08:34)
[2017-04-24] MEDS: Furosemide 20 MG TABLET PO SCH ×2 (08:34→16:48)
[2017-04-24] MEDS: Folic Acid 1 MG TABLET PO SCH (08:34)
[2017-04-24] MEDS: Aspirin Enteric Coated 325 MG Tablet PO SCH (08:34)
[2017-04-24] MEDS: Nicotine 21 MG PATCH.TD24 TD SCH (08:35)
[2017-04-24] MEDS ORDERED: Furosemide 20 MG TABLET PO SCH (09:00)
--- NOTE | 2017-04-24 10:45 | Internal Med Progress Note ---
<Harry Wells - Last Filed: 04/24/17 10:42> Date of Encounter: 04/24/17 Time of Encounter: 10:00 - Assessment and plan (1) Pneumonia Current Visit: No Status: Resolved Assessment and plan: Chest x-ray demonstrated patchy infiltrates in the right and left lower lobes. Mild respiratory distress on admission. Patient currently on cefepime 1000 mg IV every 12 hours and Levaquin 500 mg IV every 24 hours. White count this morning was 13.9. Blood cultures, sputum cultures, Legionella, strep, and mycoplasma antigens pending. Qualifiers: Pneumonia type: due to unspecified organism Laterality: left Lung location: lower lobe of lung Qualified Code(s): J18.1 - Lobar pneumonia, unspecified organism (2) Acute on chronic respiratory failure with hypoxia and hypercapnia Current Visit: Yes Status: Acute Assessment and plan: Likely due to pneumonia and COPD exacerbation. Patient has chronic hypercapnia for arterial blood gas performed in the ER. Patient normally on 2.5 L of oxygen at home at all times. Plan: Lasix 20 mg by mouth twice a day Plan Medrol 40 mg IV every 6 DuoNeb 3 mL every 4 when necessary O2 via nasal cannula (3) Hypertension Current Visit: No Status: Chronic Assessment and plan: Patient has a known history of hypertension. Blood pressure this morning was 130/72. Plan: -Coreg 6.25 mg by mouth twice a day. Qualifiers: Hypertension type: essential hypertension Qualified Code(s): I10 - Essential (primary) hypertension (4) Tobacco use Current Visit: No Status: Chronic Assessment and plan: Patient has not smoked since Saturday. Currently on a nicotine patch. (5) Type 2 diabetes mellitus Current Visit: No Status: Acute Assessment and plan: Insulin sliding scale and Lantus. Glucose this morning was 215. 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 - Subjective Interval history: Patient was examined at this point. Patient reports she is feeling better than she did on admission. Reports not being able to sleep well last night. Currently on oxygen via nasal cannula. Reports not being able to walk properly even with the use of a walker. Will likely need physical therapy. No other complaints at this time. - Constitutional Vitals: Temp Pulse Resp BP Pulse Ox 98.2 F 81 14 130/72 89 04/24/17 06:59 04/24/17 06:59 04/24/17 08:17 04/24/17 06:59 04/24/17 08:17 General appearance: Present: mild distress, A&O X 3, answers questions appropriately - Head Head exam: Present: atraumatic, normocephalic - Eye Eye exam: Present: PERRL, conjuntiva pink, sclera anicteric Pupils: Present: PERRL - Neck Neck exam general surgery: Present: supple, trachea midline. Absent: lymphadenopathy - Respiratory Respiratory exam: Present: decreased breath sounds, prolonged expiratory phase, wheezes. Absent: accessory muscle use, rhonchi - Cardiovascular Cardiovascular exam: Present: RRR, +S1, +S2. Absent: diastolic murmur, gallop, rubs, systolic murmur - Extremities Exam Extremities exam: Present: calf tenderness - Skin Skin exam: Present: dry, intact Internal Medicine: Result - Labs CBC & Chem 7: 04/24/17 01:14 04/24/17 01:14 Labs: Short CBC 04/24/17 Range/Units 01:14 WBC 13.9 H (4.3-11.1) K/mcL Hgb 10.5 L (11.5-15.4) g/dL Hct 34.8 L (35.3-44.9) % Plt Count 449 H (140-400) K/mcL Neutrophils # 13.2 H (1.6-8.9) K/mcL BMP 04/24/17 01:14 Sodium 142 Potassium 4.1 Chloride 98 Carbon Dioxide 30 H BUN 11 Creatinine 1.09 Glucose 215 H Calcium 8.5 L Cardiac Enzymes 04/24/17 04/24/17 Range/Units 01:14 06:29 Troponin I 0.01 0.01 (0-0.03) ng/mL Liver Function 04/24/17 Range/Units 01:14 Total Bilirubin 0.4 (0.2-1.2) mg/dL AST 15 (5-34) Units/L ALT 12 (0-55) Units/L Alkaline Phosphatase 89 (38-126) Units/L Albumin 2.3 L (3.5-5.0) g/dL Consult Discharge Plan - Plan Referrals: Dimitris Villaseñor, JARRETT [Primary Care Provider] - 04/30/17 1:30 pm (Please follow up as schedule...) <Enzo Kan H - Last Filed: 04/24/17 11:01> Date of Encounter: 04/24/17 - Constitutional Vitals: Temp Pulse Resp BP Pulse Ox 98.2 F 81 14 130/72 89 04/24/17 06:59 04/24/17 06:59 04/24/17 08:17 04/24/17 06:59 04/24/17 08:17 Internal Medicine: Result - Labs CBC & Chem 7: 04/24/17 01:14 04/24/17 01:14 Labs: Short CBC 04/24/17 Range/Units 01:14 WBC 13.9 H (4.3-11.1) K/mcL Hgb 10.5 L (11.5-15.4) g/dL Hct 34.8 L (35.3-44.9) % Plt Count 449 H (140-400) K/mcL Neutrophils # 13.2 H (1.6-8.9) K/mcL BMP 04/24/17 01:14 Sodium 142 Potassium 4.1 Chloride 98 Carbon Dioxide 30 H BUN 11 Creatinine 1.09 Glucose 215 H Calcium 8.5 L Cardiac Enzymes 04/24/17 04/24/17 Range/Units 01:14 06:29 Troponin I 0.01 0.01 (0-0.03) ng/mL Liver Function 04/24/17 Range/Units 01:14 Total Bilirubin 0.4 (0.2-1.2) mg/dL AST 15 (5-34) Units/L ALT 12 (0-55) Units/L Alkaline Phosphatase 89 (38-126) Units/L Albumin 2.3 L (3.5-5.0) g/dL - Attending Attestation Acute chronic hypoxic hypercapnic respiratory failure secondary to aspiration pneumonia present upon admission, patient has history of tracheomalacia Continue cefepime and Levaquin, steroids History of severe constipation, may add lactulose daily Hypomagnesemia, replete magnesium I examined this patient and my medical decision-making was reviewed with the Resident Physician. I agree with the documented findings, disposition and treatment plan as described except to the extent set forth below.
[2017-04-24] MEDS: Cefepime HCl 2,000 MG in Water for inj. (sterile) 20 ML IVP SCH (12:44)
[2017-04-24] MEDS: Magnesium Oxide 400 MG TABLET PO SCH ×2 (12:44→21:31)
[2017-04-24] MEDS: Lactulose Oral Soln 20 GM/30 ML UDC PO SCH (12:44)
[2017-04-24] MEDS ORDERED: Levofloxacin 750 MG/150 ML 750 MG/150 ML BAG IVPB SCH (23:30)
[2017-04-25] MEDS: Cefepime HCl 2,000 MG in Water for inj. (sterile) 20 ML IVP SCH ×2 (00:37→12:53)
[2017-04-25] MEDS: MethylPREDNISolone 40 MG/ML VIAL IVP SCH ×4 (00:37→17:15)
[2017-04-25] MEDS: Ipratropium/Albuterol Neb 3 ML IH SCH ×7 (00:58→23:26)
[2017-04-25] MEDS: diazePAM 5 MG TABLET PO PRN ×3 (01:09→22:38)
[2017-04-25] MEDS: *HR* Enoxaparin 40 MG/0.4 ML SYRINGE SQ SCH (05:26)
[2017-04-25 06:11] LABS: Hematocrit 31.6 % (35.3-44.9); Hemoglobin 9.6 g/dL (11.5-15.4); Mean Corpuscular HGB Conc 30.4 g/dL (31.6-35.5); Mean Corpuscular Hemoglobin 28.8 pg (28.0-33.3); Mean Corpuscular Volume 94.9 fL (83.0-100.0); Mean Platelet Volume 9.5 fL (9.4-12.4); Platelet Count 488 K/mcL (140-400); Red Blood Count 3.33 M/mcL (3.82-4.97); Red Cell Distribution Width 15.9 % (11.5-14.5)
[2017-04-25 06:17] LABS: Calcium 8.1 mg/dL (8.6-10.8); Potassium 4.5 mEq/L (3.5-4.5)
[2017-04-25] MEDS: Budesonide/Formoterol 160/4.5 MDI IH SCH ×2 (07:32→20:12)
[2017-04-25] MEDS: Insulin LISPRO 300 UNITS/3 ML VIAL SQ SCH ×4 (08:14→21:41)
[2017-04-25] MEDS: FLUoxetine 20 MG CAPSULE PO SCH (08:15)
[2017-04-25] MEDS: Nicotine 21 MG PATCH.TD24 TD SCH (08:15)
[2017-04-25] MEDS: Gabapentin 300 MG CAPSULE PO SCH ×3 (08:15→21:40)
[2017-04-25] MEDS: Levothyroxine 25 MCG TABLET PO SCH (08:16)
[2017-04-25] MEDS: Furosemide 20 MG TABLET PO SCH (08:16)
[2017-04-25] MEDS: Aspirin Enteric Coated 325 MG Tablet PO SCH (08:16)
[2017-04-25] MEDS: Lactulose Oral Soln 20 GM/30 ML UDC PO SCH ×2 (08:16→14:04)
[2017-04-25] MEDS: Magnesium Oxide 400 MG TABLET PO SCH ×2 (08:16→21:40)
[2017-04-25] MEDS: Folic Acid 1 MG TABLET PO SCH (08:16)
[2017-04-25] MEDS: Fluticasone Propionate Nasal 50 MCG/SPRAY BOTTLE NS SCH (08:17)
[2017-04-25] MEDS: *HR* OxyCODONE Immed Rel 5 MG TABLET PO PRN ×2 (09:57→17:58)
--- NOTE | 2017-04-25 13:01 | Internal Med Progress Note ---
Date of Encounter: 04/25/17 Time of Encounter: 12:59 - Assessment and plan (1) Pneumonia Current Visit: No Status: Resolved Assessment and plan: Acute chronic hypoxic hypercapnic respiratory failure secondary to aspiration pneumonia present upon admission, patient has history of tracheomalacia Chest x-ray demonstrated patchy infiltrates in the right and left lower lobes. Mild respiratory distress on admission. Continue cefepime and Levaquin day 2 . Qualifiers: Pneumonia type: due to unspecified organism Laterality: left Lung location: lower lobe of lung Qualified Code(s): J18.1 - Lobar pneumonia, unspecified organism (2) Acute kidney injury superimposed on chronic kidney disease Current Visit: No Status: Resolved Assessment and plan: Acute chronic renal failure Hold Lasix and losartan Start IV fluids (3) Constipation Current Visit: No Status: Acute Assessment and plan: Increased dose of lactulose due to history of ileus Qualifiers: Constipation type: drug induced constipation Qualified Code(s): K59.03 - Drug induced constipation (4) Morbid obesity with BMI of 45.0-49.9, adult Current Visit: No Status: Chronic (5) Hypertension Current Visit: No Status: Chronic Assessment and plan: Patient has a known history of hypertension. -Coreg 6.25 mg by mouth twice a day. Qualifiers: Hypertension type: essential hypertension Qualified Code(s): I10 - Essential (primary) hypertension - Subjective Interval history: Complaining of abdominal pain, has had chronic constipation and not be able to go to the restroom for 3 days. Less short of breath, denies any abdominal pain , no fevers. - Constitutional Vitals: Temp Pulse Resp BP Pulse Ox 98.1 F 74 15 102/55 94 04/25/17 11:03 04/25/17 11:03 04/25/17 11:17 04/25/17 11:03 04/25/17 11:17 General appearance: Present: mild distress, A&O X 3, morbidly obese, answers questions appropriately - Head Head exam: Present: atraumatic, normocephalic - Eye Eye exam: Present: PERRL, conjuntiva pink, sclera anicteric Pupils: Present: PERRL - Neck Neck exam general surgery: Present: supple, trachea midline. Absent: lymphadenopathy - Respiratory Respiratory exam: Present: CTAB. Absent: accessory muscle use, rales, rhonchi, wheezes - Cardiovascular Cardiovascular exam: Present: RRR, +S1, +S2. Absent: diastolic murmur, gallop, rubs, systolic murmur - GI/Abdominal GI/Abdominal exam: Present: distended, normal bowel sounds, soft, no peritoneal signs. Absent: tenderness - Extremities Exam Extremities exam: Present: warm, radial pulses palpable and symmetrical. Absent : calf tenderness, cyanotic, pedal edema - Neurological Exam Neurological exam: Present: CN II-XII intact, oriented X3, no focal deficits. Absent: pronater drift, facial droop, speech deficit - Skin Skin exam: Present: dry, intact Internal Medicine: Result - Labs CBC & Chem 7: 04/25/17 05:27 04/25/17 05:27 Labs: Short CBC 04/25/17 Range/Units 05:27 WBC 14.0 H (4.3-11.1) K/mcL Hgb 9.6 L (11.5-15.4) g/dL Hct 31.6 L (35.3-44.9) % Plt Count 488 H (140-400) K/mcL BMP 04/25/17 05:27 Sodium 137 Potassium 4.5 Chloride 95 L Carbon Dioxide 31 H BUN 28 H D Creatinine 2.14 H D Glucose 325 H Calcium 8.1 L Consult Discharge Plan - Plan Referrals: Dimitris Villaseñor CNP [Primary Care Provider] - 04/30/17 1:30 pm (Please follow up as schedule...)
[2017-04-25] MEDS: 0.9 % Sodium Chloride 1,000 ML IVC SCH ×2 (14:04→21:40)
[2017-04-25] MEDS: Insulin DETEMIR 100 UNIT/ML X5UNITS SQ SCH (21:41)
[2017-04-25] MEDS ORDERED: Levofloxacin 750 MG/150 ML 750 MG/150 ML BAG IVPB SCH (23:30)
[2017-04-26] MEDS: *HR* OxyCODONE Immed Rel 5 MG TABLET PO PRN (00:02)
[2017-04-26] MEDS: MethylPREDNISolone 40 MG/ML VIAL IVP SCH ×2 (00:02→05:31)
[2017-04-26] MEDS: Cefepime HCl 2,000 MG in Water for inj. (sterile) 20 ML IVP SCH ×2 (00:05→12:20)
[2017-04-26] MEDS: Ipratropium/Albuterol Neb 3 ML IH SCH ×4 (03:56→15:46)
[2017-04-26 04:52] LABS: Hematocrit 30.4 % (35.3-44.9); Hemoglobin 9.2 g/dL (11.5-15.4); Mean Corpuscular HGB Conc 30.3 g/dL (31.6-35.5); Mean Corpuscular Volume 95.9 fL (83.0-100.0); Mean Platelet Volume 9.8 fL (9.4-12.4); Platelet Count 418 K/mcL (140-400); Red Blood Count 3.17 M/mcL (3.82-4.97); Red Cell Distribution Width 15.8 % (11.5-14.5)
[2017-04-26 05:12] LABS: Calcium 7.8 mg/dL (8.6-10.8)
[2017-04-26] MEDS ORDERED: *HR* Enoxaparin 40 MG/0.4 ML SYRINGE SQ SCH (06:00)
[2017-04-26] MEDS ORDERED: *HR* Enoxaparin 30 MG/0.3 ML SYRINGE SQ SCH (06:00)
[2017-04-26 06:41] VITALS: BP 134/84
[2017-04-26] MEDS: Budesonide/Formoterol 160/4.5 MDI IH SCH (07:31)
[2017-04-26] MEDS: Insulin LISPRO 300 UNITS/3 ML VIAL SQ SCH ×2 (07:53→12:22)
[2017-04-26] MEDS: Lactulose Oral Soln 20 GM/30 ML UDC PO SCH (07:53)
[2017-04-26] MEDS: Nicotine 21 MG PATCH.TD24 TD SCH (07:54)
[2017-04-26] MEDS: Gabapentin 300 MG CAPSULE PO SCH (07:55)
[2017-04-26] MEDS: Folic Acid 1 MG TABLET PO SCH (07:56)
[2017-04-26] MEDS: Aspirin Enteric Coated 325 MG Tablet PO SCH (07:56)
[2017-04-26] MEDS: Levothyroxine 25 MCG TABLET PO SCH (07:56)
[2017-04-26] MEDS: Fluticasone Propionate Nasal 50 MCG/SPRAY BOTTLE NS SCH (07:56)
[2017-04-26] MEDS: Magnesium Oxide 400 MG TABLET PO SCH (07:56)
[2017-04-26] MEDS: FLUoxetine 20 MG CAPSULE PO SCH (07:56)
[2017-04-26 08:04] LABS: Mycoplasma pneumoniae IgG 0.85 U/L (<=0.09)
--- NOTE | 2017-04-26 08:38 | Discharge Summary ---
Date of Encounter: 04/26/17 Time of Encounter: 08:29 - Discharge Diagnosis (1) Pneumonia Priority: Primary Status: Resolved Comments: Acute chronic hypoxic hypercapnic respiratory failure secondary to aspiration pneumonia present upon admission, patient has history of tracheomalacia Qualifiers: Pneumonia type: due to unspecified organism Laterality: left Lung location: lower lobe of lung Qualified Code(s): J18.1 - Lobar pneumonia, unspecified organism (2) Acute kidney injury superimposed on chronic kidney disease Priority: Primary Status: Resolved (3) Constipation Priority: Secondary Status: Acute Qualifiers: Constipation type: drug induced constipation Qualified Code(s): K59.03 - Drug induced constipation (4) Morbid obesity with BMI of 45.0-49.9, adult Priority: Secondary Status: Chronic (5) Hypertension Priority: Secondary Status: Chronic Qualifiers: Hypertension type: essential hypertension Qualified Code(s): I10 - Essential (primary) hypertension - Discharge Medications Prescriptions: OxyCODONE Immed Rel [Roxicodone 5 MG] 5 mg PO Q6HR PRN #20 tab PRN Reason: Pain Cefepime HCl [Maxipime] 1,000 mg IVPB Q12HR #10 vial diazePAM [Valium] 5 mg PO TID PRN #20 tablet PRN Reason: Anxiety levoFLOXacin [Levaquin] 500 mg PO DAILY #5 tablet predniSONE [PredniSONE] 10 mg PO DAILY 20 Days tablet Home Medications: Folic Acid 1 mg PO DAILY 05/23/15 [History] Levothyroxine [Synthroid] 25 mcg PO DAILY 05/23/15 [History] Losartan [Cozaar] 25 mg PO DAILY 05/23/15 [History] Gabapentin [Neurontin] 300 mg PO TID 10/25/15 [History] Montelukast [Singulair] 10 mg PO DAILY 10/25/15 [History] Oxygen 2.5 l .ROUTE AD 10/25/15 [History] hydrOXYzine HCl [Hydroxyzine HCl] 25 mg PO TID PRN 10/25/15 [History] FLUoxetine HCl [Fluoxetine HCl] 40 mg PO DAILY 05/21/16 [History] Aspirin [Ecotrin] 325 mg PO DAILY 06/15/16 [History] Ipratropium/Albuterol Neb [Duoneb] 3 ml IH Q6HR 06/15/16 [History] Insulin Glargine,Hum.rec.anlog [Lantus Solostar] 40 unit SQ HS #1 06/17/16 [Rx] Fluticasone Propionate Nasal [Flonase] 2 spr NS DAILY 01/09/17 [History] Albuterol Neb [Proventil Neb] 2.5 mg IH [id number] PRN inh 01/16/17 [Rx] diazePAM [Valium] 5 mg PO TID PRN #20 01/16/17 [Rx] Bisacodyl [Dulcolax] 10 mg RC DAILY PRN #10 supp.rect 03/28/17 [Rx] Carvedilol [Coreg] 6.25 mg PO BID 03/28/17 [History] Docusate [Colace] 100 mg PO BID #60 capsule 03/28/17 [Rx] Polyethylene Glycol 3350 [MiraLAX Powder Bulk 17.9 Oz] 1 scoop PO DAILY #510 gm 03/28/17 [Rx] Budesonide/Formoterol 160/4.5 [Symbicort 160/4.5] 2 puff IH BIDR #1 inhaler 12/27 [Rx] Magnesium Oxide [Mag-Ox] 400 mg PO BID #14 tablet 04/19/17 [Rx] Metoclopramide [Reglan] 5 mg PO QIDAC #120 tablet 04/19/17 [Rx] Sennosides/Docusate Sodium [Senna Plus] 2 each PO BID #60 tablet 04/19/17 [Rx] Cefepime HCl [Maxipime] 1,000 mg IVPB Q12HR #10 vial 04/26/17 [Rx] Furosemide [Lasix] 20 mg PO BID #28 tab 04/26/17 [Rx] Insulin LISPRO [HumaLOG] 15 units SQ TIDWM 30 Days #0 vial 04/26/17 [Rx] OxyCODONE Immed Rel [Roxicodone 5 MG] 5 mg PO Q6HR PRN #20 tab 04/26/17 [Rx] diazePAM [Valium] 5 mg PO TID PRN #20 tablet 04/26/17 [Rx] levoFLOXacin [Levaquin] 500 mg PO DAILY #5 tablet 04/26/17 [Rx] predniSONE [PredniSONE] 10 mg PO DAILY 20 Days tablet 04/26/17 [Rx] Allergies/Adverse Reactions: 3 Allergy/AdvReac Type Severity Reaction Status Date / Time acetaminophen [From Tylenol] Allergy Hives Verified 04/24/17 06:48 ibuprofen AdvReac Nausea Verified 04/24/17 06:48 NSAIDS (Non-Steroidal AdvReac Nausea Verified 04/24/17 06:48 Anti-Inflamma Date of admission: 04/24/17 00:36 Primary care physician: Dimitris Villaseñor CNP Consults: 04/24/17 00:42 Consult to Occupational Therapy [CONS] Routine Comment: Evaluate, develop and implement POC Reason for Consult: physical deconditioning Consult to Physical Therapy [CONS] Routine Comment: Evaluate, develop and implement POC Reason for Consult: physical deconditioning 04/24/17 10:48 Consult to Head Waitress [CONS] Routine Reason for SW Consult: questions about [facility] vs [facility] re[facility] - Patient Status Disposition: Transfer SNF Condition: Fair Overall status at discharge: patient is progressing back to baseline - Discharge Instructions Follow Up With: Dimitris Villaseñor CNP [Primary Care Provider] - 04/30/17 1:30 pm (Please follow up as schedule...) Additional Instructions: Follow-up with primary care physician within the next 2 weeks. Complete 5 more days of cefepime and Levaquin, taper prednisone, needs a tap water enema at least every 3 days. Continue BiPAP - Diet and Activity Activity: increase activity as tolerated Diet: diabetic diet Hospital course: Ms. Yang is a 61 year old female the past medical history of severe constipation, small bowel obstruction/ileus, type 2 diabetes insulin-dependent, CVA, COPD oxygen dependent with traction [place], tobacco abuse, morbid obesity , CAD, chronic hypoxic respiratory failure, chronic hypercapneic resp failure on BiPAP now, also who was in this hospital for almost 15 days for constipation / ileus / hypercapneic resp failure got d/c home on 04/19/17 with BiPAP . Apparently pt was complaining of worsening SOB, with cold, cough and greenish sputum. She went to [place] [facility] with severe hypoxia Spo2 in 80's on 3 lit O2.. She was placed on 15 lit Venturi mask and her oxygenation improved. Her CXR showed patchy infiltrates in Rt and Left lower lobes. Pt was sent to our hospital for further care. The patient was started on Solu-Medrol, cefepime and Flagyl for possible aspiration. During her hospitalization the patient developed acute renal failure that improved with IV fluids and by stopping temporarily losartan and Lasix. She was given the option stay another day but prefers to be discharged to a facility. She been having obstipation again and did not respond to high doses of lactulose. The patient will have a tap Water enema as it was the only thing that worked last time during her prior hospitalization Time spent discussing smoking cessation with patient: 3 to 10 minutes - Time Spent with Patient Total time spent providing and/or coordinating discharge services: Greater than 30 minutes (40 min) - Constitutional Vitals: Temp Pulse Resp BP Pulse Ox 98.6 F 86 18 134/84 93 04/26/17 06:40 04/26/17 06:40 04/26/17 07:32 04/26/17 06:40 04/26/17 07:32 General appearance: Present: mild distress, A&O X 3, morbidly obese, answers questions appropriately - Head Head exam: Present: atraumatic, normocephalic - Eye Eye exam: Present: PERRL, conjuntiva pink, sclera anicteric Pupils: Present: PERRL - Neck Neck exam general surgery: Present: supple, trachea midline. Absent: lymphadenopathy - Respiratory Respiratory exam: Present: decreased breath sounds, CTAB. Absent: accessory muscle use, rales, rhonchi, wheezes - Cardiovascular Cardiovascular exam: Present: RRR, +S1, +S2. Absent: diastolic murmur, gallop, rubs, systolic murmur - GI/Abdominal GI/Abdominal exam: Present: distended, normal bowel sounds, soft, no peritoneal signs. Absent: tenderness - Extremities Exam Extremities exam: Present: pedal edema (+2 nonpitting edema in both lower extremities), warm, radial pulses palpable and symmetrical. Absent: calf tenderness, cyanotic - Neurological Exam Neurological exam: Present: CN II-XII intact, oriented X3, no focal deficits. Absent: pronater drift, facial droop, speech deficit - Skin Skin exam: Present: dry, intact
--- NOTE | 2017-04-26 08:48 | Physician Discharge Referral ---
ExtendedCare Referral Info Provider in Charge after Transfer: PCP Institutional Level of Care: Skilled - Diagnosis (1) Pneumonia Status: Resolved (2) Acute kidney injury superimposed on chronic kidney disease Status: Resolved (3) Constipation Status: Acute (4) Morbid obesity with BMI of 45.0-49.9, adult Status: Chronic (5) Hypertension Status: Chronic - Transfer Medications Prescriptions: OxyCODONE Immed Rel [Roxicodone 5 MG] 5 mg PO Q6HR PRN #20 tab PRN Reason: Pain Cefepime HCl [Maxipime] 1,000 mg IVPB Q12HR #10 vial diazePAM [Valium] 5 mg PO TID PRN #20 tablet PRN Reason: Anxiety levoFLOXacin [Levaquin] 500 mg PO DAILY #5 tablet predniSONE [PredniSONE] 10 mg PO DAILY 20 Days tablet Home Medications: Folic Acid 1 mg PO DAILY 05/23/15 [History] Levothyroxine [Synthroid] 25 mcg PO DAILY 05/23/15 [History] Losartan [Cozaar] 25 mg PO DAILY 05/23/15 [History] Gabapentin [Neurontin] 300 mg PO TID 10/25/15 [History] Montelukast [Singulair] 10 mg PO DAILY 10/25/15 [History] Oxygen 2.5 l .ROUTE AD 10/25/15 [History] hydrOXYzine HCl [Hydroxyzine HCl] 25 mg PO TID PRN 10/25/15 [History] FLUoxetine HCl [Fluoxetine HCl] 40 mg PO DAILY 05/21/16 [History] Aspirin [Ecotrin] 325 mg PO DAILY 06/15/16 [History] Ipratropium/Albuterol Neb [Duoneb] 3 ml IH Q6HR 06/15/16 [History] Insulin Glargine,Hum.rec.anlog [Lantus Solostar] 40 unit SQ HS #1 06/17/16 [Rx] Fluticasone Propionate Nasal [Flonase] 2 spr NS DAILY 01/09/17 [History] Albuterol Neb [Proventil Neb] 2.5 mg IH Q1SPUER PRN inh 01/16/17 [Rx] diazePAM [Valium] 5 mg PO TID PRN #20 01/16/17 [Rx] Bisacodyl [Dulcolax] 10 mg RC DAILY PRN #10 supp.rect 03/28/17 [Rx] Carvedilol [Coreg] 6.25 mg PO BID 03/28/17 [History] Docusate [Colace] 100 mg PO BID #60 capsule 03/28/17 [Rx] Polyethylene Glycol 3350 [MiraLAX Powder Bulk 17.9 Oz] 1 scoop PO DAILY #510 gm 03/28/17 [Rx] Budesonide/Formoterol 160/4.5 [Symbicort 160/4.5] 2 puff IH BIDR #1 inhaler 12/27 [Rx] Magnesium Oxide [Mag-Ox] 400 mg PO BID #14 tablet 04/19/17 [Rx] Metoclopramide [Reglan] 5 mg PO QIDAC #120 tablet 04/19/17 [Rx] Sennosides/Docusate Sodium [Senna Plus] 2 each PO BID #60 tablet 04/19/17 [Rx] Cefepime HCl [Maxipime] 1,000 mg IVPB Q12HR #10 vial 04/26/17 [Rx] Furosemide [Lasix] 20 mg PO BID #28 tab 04/26/17 [Rx] Insulin LISPRO [HumaLOG] 15 units SQ TIDWM 30 Days #0 vial 04/26/17 [Rx] OxyCODONE Immed Rel [Roxicodone 5 MG] 5 mg PO Q6HR PRN #20 tab 04/26/17 [Rx] diazePAM [Valium] 5 mg PO TID PRN #20 tablet 04/26/17 [Rx] levoFLOXacin [Levaquin] 500 mg PO DAILY #5 tablet 04/26/17 [Rx] predniSONE [PredniSONE] 10 mg PO DAILY 20 Days tablet 04/26/17 [Rx] Allergies/Adverse Reactions: 3 Allergy/AdvReac Type Severity Reaction Status Date / Time acetaminophen [From Tylenol] Allergy Hives Verified 04/24/17 06:48 ibuprofen AdvReac Nausea Verified 04/24/17 06:48 NSAIDS (Non-Steroidal AdvReac Nausea Verified 04/24/17 06:48 Anti-Inflamma - Respiratory Orders Smoking Cessation: Smoking cessation has been advised. For more information, call the [place] Tobacco Quit Line at 1-095-FWTK-NOW. - Advance Directives Code Status: Full Code - Rehabiliation Orders Other: Follow-up with primary care physician within the next 2 weeks. Complete 5 more days of cefepime and Levaquin, taper prednisone, needs a tap water enema at least every 3 days. Continue BiPAP CERTIFICATION: I certify that the transfer of the above named patient to an Extended Care Facility is necessary for the continuing treatment of the diagnosis listed. The above information is true and accurate reflection of patient's current condition. Confidential - Redisclosure prohibited without a patient's written consent.
[2017-04-26] MEDS ORDERED: predniSONE 20 MG TABLET PO SCH (09:00)
[2017-04-26] MEDS ORDERED: Insulin LISPRO 300 UNITS/3 ML VIAL SQ SCH (12:00)
== END 2017-04-26 15:47 | DRG 177 ==
LOC: 2ANU
PROVIDERS: ADMIT Family Medicine; ATTEND Internal Medicine

== ENCOUNTER 2017-07-12 10:02 | Inpatient (IN) ==
[2017-07-12] MEDS ORDERED: traMADol 50 MG TABLET PO PRN (13:58)
[2017-07-12] MEDS ORDERED: Albuterol 2.5 MG/3 ML NEBULIZER IH PRN (13:58)
[2017-07-12] MEDS ORDERED: Naloxone 0.4 MG/ML INJ IVP PRN (13:58)
[2017-07-12] MEDS ORDERED: D5% in Water 1,000 ML IVC PRN (14:06)
[2017-07-12] MEDS ORDERED: Dextrose Gel 15 GM/37.5 ML TUBE PO PRN ×2 (14:06)
[2017-07-12] MEDS ORDERED: *HR* Dextrose 50 % in Water (Syg) 50 ML SYRINGE IVP PRN (14:06)
--- NOTE | 2017-07-12 14:43 | Pulmonology Consult Note ---
<Skip Ferrari - Last Filed: 07/12/17 15:15> Date of Encounter: 07/12/17 Time of Encounter: 14:24 Assessment and Plan (1) Acute and chronic respiratory failure ([id number]) Current Visit: No Status: Acute Acute on chronic respiratory failure. Typically required 2-2.5L NC with BiPap at night. Now BiPap dependent. Worsening Leukocytosis 20.5 (17.1) CXR mild interstitial edema. No focal consolidation. CTA chest pending to r/o PE, further evaluate pleural effusion. BiPap: Titrate to minimal FiO2 to maintain saturation 92%+ Patient is agreeable to intubation if needed. Solumedrol LEONA DuoNebs LEONA Albuterol PRN Symbicort LEONA Empiric antibiotics against CAP Zosyn day 1 Levaquin day 1 Consider adding vancomycin pending sputum culture (Hx MRSA positive sputum) Microbiology: Sputum culture pending Blood cultures pending (2) Pneumonia Current Visit: No Status: Resolved Preseumed community acquired pneumonia. Plan as above. (3) COPD (chronic obstructive pulmonary disease) Current Visit: No Status: Chronic Plan as above (4) Nicotine dependence with nicotine-induced disorder Current Visit: No Status: Chronic 48pk-yr hx of tobacco smoking. Current 1ppd smoker. Nicotene patch PRN. History of Present Illness Consult date: 07/12/17 Requesting physician: Celestino Escudero Chief complaint: dyspnea History of present illness: Mrs. Yang, a 62yo female, presented to [facility] ED 07/11 for evaluation of dyspnea. Prior to arrival, her home health nurse noted pulse oxemeter of 79% . Hx COPD on 2-2.5L supplemental O2 continuously with BiPap at night. Her symptoms onset was 2days prior with productive cough different than her chronic cough. No fever, chills, nauasea, vomiting, chest pain, palpitations. She was admitted to [facility] inpatient unit for acute exacerbation COPD, RLL pneumonia. On bronchodilators (duonebs, albuterol), solumedrol, levaquin, vancomycin (hx MRSA in sputum). She was hypoxic without BiPap and somnolent. Today while at [facility] inpatient, her saturations on BiPap dwindled to the 80 's, occasionally in the 90s. She desaturated to the 70's anytime BiPap was off despite the use of NC. [facility] providers were concerned for the patient's worsening respiratory status in the context of the lack of availability 24hr or weekend respiratory support. She was transferred from [facility] to [facility] ICU. On arrival to [facility] ICU, patient is on BiPap saturing 93% with FiO2 50%. Patient states she feels well other than the dyspnea. She is unable to compare her symptoms today to prior episodes of pneumonia; she typically feels fine with pneumonia. Patient is in the midst of a work-up at [facility] cancer center for returning breast cancer. Biopsy is pending. No current or recent radiation or chemotherapy. Patient wishes to remain Full code. Habits: 48pk-yr hx of tobacco smoking. Past Med Surg Social Fam HX - Past Medical History Medical history: arthritis, asthma, cancer, COPD, coronary artery disease, CVA, diabetes, GERD, hyperlipidemia, hypertension, pulmonary embolus, renal disease, thyroid disease, TIA, other Psychiatric history: anxiety, depression - Past Surgical History Surgical History: breast surgery, orthopedic, other, other - Social History Smoking Status: Current every day smoker Smokeless Tobacco Status: No Alcohol use: none Drug use: none - Family History Sister Living Status: Hx Family Respiratory Disorders: Yes (copd) Brother Living Status: Still Living Hx Family Neurologic Disorders: Yes (seizure) Mother Living Status: Hx Family Cardiac Disorders: Yes Hx Family Respiratory Disorders: Yes (emphysema) Hx Family Cancer: Yes (uterine cancer) Father Living Status: Hx Family Cardiac Disorders: Yes (mi, htn) Medications and Allergies Folic Acid 1 mg PO DAILY 05/23/15 [History] Levothyroxine [Synthroid] 25 mcg PO DAILY 05/23/15 [History] Montelukast [Singulair] 10 mg PO DAILY 10/25/15 [History] Oxygen 3 l IH AD 10/25/15 [History] FLUoxetine HCl [Fluoxetine HCl] 40 mg PO DAILY 05/21/16 [History] Insulin Glargine,Hum.rec.anlog [Lantus Solostar] 40 unit SQ HS #1 06/17/16 [Rx] Fluticasone Propionate Nasal [Flonase] 2 spr NS PRN PRN 01/09/17 [History] Carvedilol [Coreg] 6.25 mg PO BID 03/28/17 [History] Polyethylene Glycol 3350 [MiraLAX Powder Bulk 17.9 Oz] 1 scoop PO DAILY #510 gm 03/28/17 [Rx] Metoclopramide [Reglan] 5 mg PO QIDAC #120 tablet 04/19/17 [Rx] Gabapentin [Neurontin] 300 mg PO TID #90 capsule 04/26/17 [Rx] Anastrozole [Arimidex] 1 mg PO DAILY 06/04/17 [History] Aspirin [Ecotrin] 325 mg PO DAILY 07/11/17 [History] Cholecalciferol (Vitamin D3) [Vitamin D3] 1 cap PO QWEEK 07/11/17 [History] Fluticasone/Vilanterol [Breo Ellipta 200-25 Mcg INH] 1 puff IH DAILY 07/11/17 [ History] Ipratropium/Albuterol Sulfate [Combivent Respimat Inhal [place]] 4 gm IH QID 07/11 [History] Magnesium Oxide [[place]] 400 mg PO BID 07/11/17 [History] Sennosides/Docusate Sodium [Senna-S Tablet] 1 each PO BID PRN 07/11/17 [History] Simvastatin [Zocor] 20 mg PO HS 07/11/17 [History] hydrOXYzine HCl [Hydroxyzine HCl] 25 mg PO TID PRN 07/11/17 [History] Albuterol Neb [Proventil Neb] 2.5 mg IH Q2H PRN inhsol 07/12/17 [Rx] Furosemide [Lasix] 80 mg PO BID 07/12/17 [History] Insulin LISPRO [HumaLOG] 0 units SQ Q6HR vial 07/12/17 [Rx] Ipratropium/Albuterol Neb [Duoneb] 3 ml IH [id number] inhsol 07/12/17 [Rx] Losartan [Cozaar] 25 mg PO DAILY 07/12/17 [History] Omeprazole [PriLOSEC] 20 mg PO DAILY 07/12/17 [History] Spironolactone [Aldactone] 25 mg PO BID 07/12/17 [History] diazePAM [Valium] 5 mg PO TID 07/12/17 [History] 3 Allergy/AdvReac Type Severity Reaction Status Date / Time acetaminophen [From Tylenol] Allergy Hives Verified 05/24/17 22:37 ibuprofen AdvReac Nausea Verified 05/24/17 22:37 NSAIDS (Non-Steroidal AdvReac Nausea Verified 05/24/17 22:37 Anti-Inflamma All Systems: The remainder of the systems were reviewed and are negative - Constitutional Constitutional: no anorexia, no chills, no fatigue, no fever(s), no headache(s) , no lethargy - EENT Nose, mouth and throat: no dizziness, no nasal congestion, no sinus pressure - Cardiovascular Cardiovascular: no chest pain, no edema, no irregular heart rhythm, no lightheadedness, no orthopnea, no palpitations - Respiratory Respiratory: cough, dyspnea, change in phlegm color, no hemoptysis, no wheezing - Gastrointestinal Gastrointestinal: no abdominal pain, no cramping, no diarrhea, no hematochezia, no melena, no nausea, no vomiting - Genitourinary Genitourinary: no change in urinary stream - Integumentary Integumentary: no erythema, no rash - Neurological Neurological: no abnormal gait, no frequent falls, no loss of vision, no numbness, no paresthesias Physical Examination Vital Signs: Vital Signs, Last 4 Hours Temp Pulse Resp BP Pulse Ox 07/12/17 14:05 21 133/74 93 07/12/17 13:37 98.1 F 73 21 133/74 General appearance: no acute distress, alert Eyes: nonicteric, icteric Neck: supple Effort: normal Auscultation: bilateral: diminished breath sounds, other (no wheezong, rhales, or rhonchi) Cardiovascular: regular rate and rhythm Gastrointestinal: normoactive bowel sounds, soft, non-tender, non-distended Integumentary: normal Extremities: no cyanosis, no clubbing, pink and warm, pulses normal, no ischemia or petechiae, edema (tracebilateral pedal edema) Musculoskeletal: no deformities normal mental status, non-focal exam, pupils equal and round mood appropriate Ventilator Settings Ventilator Settings: Ventilator Settings, Last 8 Hours Ventilator Mode Bi-Level Results - Clinical Findings Intake & Output: Intake & Output 07/11/17 07/12/17 07/12/17 23:59 07:59 15:59 Weight 134.5 kg Consult Discharge Plan - Plan Referrals: Giselle Rhoades MD [Primary Care Provider] - <Rosalind Fuentes M - Last Filed: 07/12/17 16:20> Date of Encounter: 07/12/17 All Systems: The remainder of the systems were reviewed and are negative Physical Examination Vital Signs: Vital Signs, Last 4 Hours Temp Pulse Resp BP Pulse Ox 07/12/17 15:56 16 124/71 91 07/12/17 15:00 75 16 124/71 91 07/12/17 14:05 21 133/74 93 07/12/17 14:00 71 16 137/73 90 07/12/17 13:37 98.1 F 73 21 133/74 92 Ventilator Settings Ventilator Settings: Ventilator Settings, Last 8 Hours Ventilator Mode Bi-Level Results - Clinical Findings Intake & Output: Intake & Output 07/12/17 07/12/17 07/12/17 07:59 15:59 23:59 Intake Total 0 / 0 Balance 0 / 0 Weight 134.5 kg - Attending Attestation I examined this patient and my medical decision-making was reviewed with the Resident Physician. I agree with the documented findings, disposition and treatment plan as described except to the extent set forth below. Patient seen and examined. Labs, radiology, chart personally reviewed. Agree with resident's history and physical, assessment, plan with following comments: IT SUPPORT SPECIALIST: Patient follows commands, Pulmonary: Acceptable oxygenation and ventilation. Patient overall is doing fine on the noninvasive ventilation and due to her underlying lung disease her functional residual capacity is not normal and given to differential diagnosis of pulmonary embolism is there, however due to renal function and other possibilities and also risk of transportation, it would be reasonable to hold on the CT angiogram and check bedside ultrasound for pleural effusion and Doppler of lower extremities necessary. Cardiovascular: stable GI: Nutrition per dietary and GI prophylaxis per routine Heme: DVT prophylaxis per routine ID: Continue antibiotics and plan to de-escalation Renal; urine out put and renal funtion reviewed Endorcine: blood glucose is monitored Lines: all lines checked and no evidence of infections Skin: skin care to prevent pressure ulcers per nursing routine care Discussed with primary team and thank you very much for consultation
--- NOTE | 2017-07-12 14:57 | Internal Med History&Physical ---
Date of Encounter: 07/12/17 Time of Encounter: 13:45 Assessment and Plan (1) Acute hypoxemic respiratory failure Current visit: Yes Status: Acute 1. Will keep on BiPap, scheduled Nebulized treatments, steroids, and antibiotics for presumed pneumonia with likely MRSA. 2. Will order repeat ABG and CXR here at [place]. 3. I discussed with ICU resident and, given her profound hypoxemia, I recommend CTA chest to rule out PE. He will order CTA chest now. 4. I discussed with Dr Fuentes after I assessed patient. Given her high FIO2 requirement and need for ongoing aggressive respiratory support, I am consulting him and his team for ICU management. She may require intubation and mechanical ventilation. (2) Acute kidney injury Current visit: No Status: Acute 1. Will place on IVF and monitor renal function. 2. Consult nephrology if renal function does not improve or worsens. (3) Type 2 diabetes mellitus Current visit: No Status: Chronic 1. Will place on basal insulin per home dosing. 2. Will use SSI and adjust as necessary. Qualifiers: Diabetes mellitus complication status: without complication Diabetes mellitus [facility] insulin use: with termination clerk use Qualified Code(s): E11.9 - Type 2 diabetes mellitus without complications; Z79.4 - longterm (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 of insulin; Z79.4 - long term care phlebotomist (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 of insulin; Z79.4 - long term care phlebotomist ( 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 of insulin; Z79.4 - long term care phlebotomist (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 of insulin (4) COPD (chronic obstructive pulmonary disease) Current visit: Yes Status: Chronic 1. Will place on scheduled and PRN nebulized treatments. 2. IV steroids, wean as condition improves. 3. Patient needs to quit smoking. Qualifiers: COPD type: emphysema Emphysema type: unspecified Qualified Code(s): J43.9 - Emphysema, unspecified (5) DVT prophylaxis Current visit: Yes Status: Acute 1. Heparin SQ. Internal Medicine - H&P: HPI Chief complaint: SOB; transfer from [place] Admitted From: Hospital to Hospital Transfer Plans for Post Hospital Care: Home History of present illness: Ms. Yang is a 62 year old female who was transferred here from [facility] inpatient for concerns of acute respiratory failure requiring constant BiPAP and possible further intervention. I spoke with Dr. Menendez this morning who requested transfer. Patient was admitted last night and has been on BiPAP all night. She decompensates and her oxygen levels drop abruptly with any removal of the BiPAP mask and any movement of her torso. With lack of appropriate support and respiratory therapy, he requested transfer and I accepted. Upon arrival to the ICU, I saw patient immediately upon arrival. She is on BiPAP with 50% oxygen delivery. Despite BiPAP and high FiO2, her SPO2 is only 88-91%. She does have some increased work of breathing and labored respirations. She states she developed shortness of breath about 4-5 days ago and it has progressively worsened. She denies any fevers, chills, or night sweats. She does have COPD and, despite that, she continues to smoke 1-2 packs per day. She wears 3 L nasal cannula oxygen at home and wears CPAP at night intermittently. She was hospitalized roughly 2 1/2 months ago for pneumonia and did have MRSA in her sputum. She has not been hospitalized since April,. She has been well until this past week when she developed worsening dyspnea as noted above. She denies any ill contacts at home. Past Med Surg Social Fam HX - Past Medical History Attestation: Yes The following information was validated with the patient. Source: patient, old records reviewed, other (phone consultation with Dr. Menendez) Medical history: arthritis, asthma, cancer, COPD, coronary artery disease, CVA, diabetes, GERD, hyperlipidemia, hypertension, pulmonary embolus, renal disease, thyroid disease, TIA Psychiatric history: anxiety, depression - Past Surgical History Surgical History: breast surgery, orthopedic, other - Social History Smoking Status: Current every day smoker Smokeless Tobacco Status: No Alcohol use: none Drug use: none Current living situation: Home, With Family Activity Level: Independent ambulation Recent Out of Country Travel Within the Last 8 Weeks: No - Family History Sister Living Status: Hx Family Respiratory Disorders: Yes (copd) Brother Living Status: Still Living Hx Family Neurologic Disorders: Yes (seizure) Mother Living Status: Hx Family Cardiac Disorders: Yes Hx Family Respiratory Disorders: Yes (emphysema) Hx Family Cancer: Yes (uterine cancer) Father Living Status: Hx Family Cardiac Disorders: Yes (mi, htn) Internal Medicine - H&P: Meds Folic Acid 1 mg PO DAILY 05/23/15 [History] Levothyroxine [Synthroid] 25 mcg PO DAILY 05/23/15 [History] Montelukast [Singulair] 10 mg PO DAILY 10/25/15 [History] Oxygen 3 l IH AD 10/25/15 [History] FLUoxetine HCl [Fluoxetine HCl] 40 mg PO DAILY 05/21/16 [History] Insulin Glargine,Hum.rec.anlog [Lantus Solostar] 40 unit SQ HS #1 06/17/16 [Rx] Fluticasone Propionate Nasal [Flonase] 2 spr NS PRN PRN 01/09/17 [History] Carvedilol [Coreg] 6.25 mg PO BID 03/28/17 [History] Polyethylene Glycol 3350 [MiraLAX Powder Bulk 17.9 Oz] 1 scoop PO DAILY #510 gm 03/28/17 [Rx] Metoclopramide [Reglan] 5 mg PO QIDAC #120 tablet 04/19/17 [Rx] Gabapentin [Neurontin] 300 mg PO TID #90 capsule 04/26/17 [Rx] Anastrozole [Arimidex] 1 mg PO DAILY 06/04/17 [History] Aspirin [Ecotrin] 325 mg PO DAILY 07/11/17 [History] Cholecalciferol (Vitamin D3) [Vitamin D3] 1 cap PO QWEEK 07/11/17 [History] Fluticasone/Vilanterol [Breo Ellipta 200-25 Mcg INH] 1 puff IH DAILY 07/11/17 [ History] Ipratropium/Albuterol Sulfate [Combivent Respimat Inhal Leslie] 4 gm IH QID 07/11 [History] Magnesium Oxide [Mgo] 400 mg PO BID 07/11/17 [History] Sennosides/Docusate Sodium [Senna-S Tablet] 1 each PO BID PRN 07/11/17 [History] Simvastatin [Zocor] 20 mg PO HS 07/11/17 [History] hydrOXYzine HCl [Hydroxyzine HCl] 25 mg PO TID PRN 07/11/17 [History] Albuterol Neb [Proventil Neb] 2.5 mg IH Q2H PRN inhsol 07/12/17 [Rx] Furosemide [Lasix] 80 mg PO BID 07/12/17 [History] Insulin LISPRO [HumaLOG] 0 units SQ Q6HR vial 07/12/17 [Rx] Ipratropium/Albuterol Neb [Duoneb] 3 ml IH [id number] inhsol 07/12/17 [Rx] Losartan [Cozaar] 25 mg PO DAILY 07/12/17 [History] Omeprazole [PriLOSEC] 20 mg PO DAILY 07/12/17 [History] Spironolactone [Aldactone] 25 mg PO BID 07/12/17 [History] diazePAM [Valium] 5 mg PO TID 07/12/17 [History] 3 Allergy/AdvReac Type Severity Reaction Status Date / Time acetaminophen [From Tylenol] Allergy Hives Verified 05/24/17 22:37 ibuprofen AdvReac Nausea Verified 05/24/17 22:37 NSAIDS (Non-Steroidal AdvReac Nausea Verified 05/24/17 22:37 Anti-Inflamma - Constitutional Constitutional: weakness, no chills, no fever(s), no night sweats - EENT Eyes: no blurry vision, no change in vision Ears: no ear pain, no tinnitus Nose, mouth and throat: no nasal congestion, no sinus pressure, no sore throat - Cardiovascular Cardiovascular ROS IM: no chest pain, no diaphoresis, no lightheadedness, no palpitations, no syncope - Respiratory Respiratory: cough, dyspnea, chest congestion, excessive phlegm production, change in phlegm color, no pain on inspiration - Gastrointestinal Gastrointestinal: no abdominal pain, no dyspepsia, no hematemesis, no hematochezia, no melena, no nausea, no vomiting - Genitourinary Genitourinary: no dysuria, no flank pain, no hematuria - Musculoskeletal Musculoskeletal ROS IM: no arthralgias, no back pain - Integumentary Integumentary IM: no rash, no jaundice - Neurological Neurological ROS: no dizziness, no focal weakness, no frequent falls, no headache(s) - Psychiatric Psychiatric: no anxiety, no depression - Endocrine Endocrine IM: no polydipsia, no polyuria - Hematologic/Lymphatic Hematologic/Lymphatic: no easy bruising, no lymphadenopathy - Allergic/Immunologic Allergic/Immunologic: wheezing, no GI upset with certain foods - Constitutional Vitals: Temp Pulse Resp BP Pulse Ox 98.1 F 73 21 133/74 93 07/12/17 13:37 07/12/17 13:37 07/12/17 14:05 07/12/17 14:05 07/12/17 14:05 General appearance: Present: cooperative, mild distress (mild to moderate respiratory distress), A&O X 3, morbidly obese, pleasant, answers questions appropriately - Head Head exam: Present: atraumatic, normal inspection - Eye Eye exam: Present: EOMI, normal appearance, PERRL. Absent: scleral icterus Pupils: Present: normal accommodation - ENT ENT exam: Present: mucous membranes dry, normal exam Additional comments: BiPap mask in place - Neck Neck exam general surgery: Present: full ROM, supple. Absent: lymphadenopathy, tenderness, nuchal rigidity - Respiratory Respiratory exam: Present: accessory muscle use, prolonged expiratory phase, rales, respiratory distress, rhonchi, tachypnea. Absent: chest wall tenderness , wheezes - Cardiovascular Cardiovascular exam: Present: RRR, +S1, +S2. Absent: diastolic murmur, JVD, systolic murmur - GI/Abdominal GI/Abdominal exam: Present: soft (obese). Absent: guarding, hepatomegaly, mass , rebound, splenomegaly, tenderness - Extremities Exam Extremities exam: Present: full ROM, normal capillary refill, warm, radial pulses palpable and symmetrical. Absent: calf tenderness, joint swelling, pedal edema, tenderness - Back Exam Back exam: Absent: CVA tenderness (L), CVA tenderness (R) - Neurological Exam Neurological exam: Present: alert, CN II-XII intact, oriented X3, no focal deficits - Psychiatric Psychiatric exam: Present: normal affect, normal mood - Skin Skin exam: Present: dry, warm. Absent: rash Internal Med - H&P Results - Labs Labs: I reviewed her labs from [place] in the include the following: WBC 20.5 Hemoglobin 11.3 Hematocrit 35.9 Platelet 312 93% segmented neutrophils 10 % band neutrophils Sodium 134 Potassium 4.6 Chloride 98 Carbon Dioxide 30 BUN 22 Creatinine 1.23 - ABG Interpretation Interpretation: ABG interpreted by me ABG results: 7.41/52/59/34/90% on BiPAP with 50% FIO2 Interpretation: respiratory acidosis, metabolic alkalosis Additional comments: Mixed Respiratory acidosis with a metabolic alkalosis and hypoxemia
[2017-07-12] MEDS: Levofloxacin 750 MG/150 ML 750 MG/150 ML BAG IVPB SCH (15:02)
[2017-07-12] MEDS: 0.9 % Sodium Chloride 1,000 ML IVC SCH (15:02)
[2017-07-12] MEDS: Ipratropium/Albuterol Neb 3 ML IH SCH ×3 (15:52→21:03)
[2017-07-12] MEDS: Budesonide/Formoterol 80/4.5 MDI IH SCH ×2 (15:56→21:02)
[2017-07-12] MEDS: methylPREDNISolone 125 MG/2 ML VIAL IVP SCH (16:19)
[2017-07-12] MEDS: *HR* Heparin 5,000 UNIT/ML VIAL SQ SCH (16:19)
[2017-07-12] MEDS: Piperacillin/Tazobactam 3.375 GM in 0.9 % Sodium Chloride Mini Bag 100 ML IVPB SCH (16:20)
--- NOTE | 2017-07-12 16:23 | Event Note ---
<Skip Ferrari - Last Filed: 07/12/17 16:20> Date of Encounter: 07/12/17 Time of Encounter: 16:20 This event note served to document rationale for not performing CTA chest; a change in the plan of care from the previously documented Pulmonary consult note : Pre-test probability places the patient at moderate risk with Wells PE 2.5 ( tachycardia, hc of cancer). Her symptoms, however, are more appropriately explained clinically by acute exacerbation of COPD with possible underlying pneumonia. Given her current unstable respiratory status as well as her worsening renal function, will hold on CTA chest at this time. D-dimer is of limited utility in this patient as she is likely positive given her multiple comorbitidies and current clinical status. <Rosalind Fuentes - Last Filed: 07/12/17 17:26> Date of Encounter: 07/12/17 I examined this patient and my medical decision-making was reviewed with the Resident Physician. I agree with the documented findings, disposition and treatment plan as described except to the extent set forth below. Discussed with resident.
[2017-07-12] MEDS: Insulin LISPRO 300 UNITS/3 ML VIAL SQ SCH (17:56)
[2017-07-12] MEDS: Insulin DETEMIR 100 UNIT/ML X5UNITS SQ SCH ×2 (17:57→19:52)
[2017-07-12 19:24] LABS: Adenovirus Not Detected (Not Detect); Bordetella Pertussis Not Detected (Not Detect); Chlamydophila pneumoniae Not Detected (Not Detect); Coronavirus 229E Not Detected (Not Detect); Coronavirus HKU1 Not Detected (Not Detect); Coronavirus NL63 Not Detected (Not Detect); Coronavirus OC43 Not Detected (Not Detect); Human Metapneumovirus Not Detected (Not Detect); Human Rhinovirus/Enterovirus Not Detected (Not Detect); Influenza A Subtype 2009 H1 Not Detected (Not Detect); Influenza A Untypeable Not Detected (Not Detect); Influenza B Not Detected (Not Detect); Mycoplasma pneumoniae Not Detected (Not Detect); Parainfluenza Virus 1 Not Detected (Not Detect); Parainfluenza Virus 2 Not Detected (Not Detect); Parainfluenza Virus 3 Not Detected (Not Detect); Parainfluenza Virus 4 Not Detected (Not Detect); Respiratory Syncytial Virus Not Detected (Not Detect)
[2017-07-13] MEDS: methylPREDNISolone 125 MG/2 ML VIAL IVP SCH ×3 (00:05→15:45)
[2017-07-13] MEDS: Piperacillin/Tazobactam 3.375 GM in 0.9 % Sodium Chloride Mini Bag 100 ML IVPB SCH ×3 (00:06→15:46)
[2017-07-13] MEDS: *HR* Heparin 5,000 UNIT/ML VIAL SQ SCH ×3 (00:07→15:46)
[2017-07-13] MEDS: Insulin LISPRO 300 UNITS/3 ML VIAL SQ SCH ×5 (00:07→22:49)
[2017-07-13] MEDS: 0.9 % Sodium Chloride 1,000 ML IVC SCH (00:07)
[2017-07-13] MEDS: Ipratropium/Albuterol Neb 3 ML IH SCH ×5 (03:13→23:02)
--- NOTE | 2017-07-13 06:36 | Pulmonology Progress Note ---
<Skip Ferrari - Last Filed: 07/13/17 09:20> Date of Encounter: 07/13/17 Time of Encounter: 06:34 Assessment and Plan (1) Acute and chronic respiratory failure (ryipj-tf-[id number]) Current Visit: No Status: Acute Acute on chronic respiratory failure. Typically required 2-2.5L NC with BiPap at night. Likely secondary to Acute exacerbation COPD Weaning from BiPap. Now on Venti mask and doing well. Plan to transfer to [address] Solumedrol LEONA. Decrease to 60mg IV Q8hr. DuoNebs LEONA Albuterol PRN Symbicort LEONA Empiric antibiotics against CAP Zosyn day 2 Levaquin day 2 Consider adding vancomycin pending sputum culture (Hx MRSA positive sputum) Microbiology: Sputum culture pending Blood cultures pending Qualifiers: Respiratory failure complication: hypoxia and hypercapnia Qualified Code(s) : J96.21 - Acute and chronic respiratory failure with hypoxia; J96.22 - Acute and chronic respiratory failure with hypercapnia; J96.22 - Acute and chronic respiratory failure with hypercapnia; J96.22 - Acute and chronic respiratory failure with hypercapnia (2) COPD (chronic obstructive pulmonary disease) Current Visit: Yes Status: Chronic Acute exacerbation of COPD. Plan as above Qualifiers: COPD type: emphysema Emphysema type: unspecified Qualified Code(s): J43.9 - Emphysema, unspecified (3) Nicotine dependence with nicotine-induced disorder Current Visit: No Status: Chronic 48pk-yr hx of tobacco smoking. Current 1ppd smoker. Nicotene patch PRN. Discussed smoking cessation with the patient. Qualifiers: Nicotine product type: cigarettes Qualified Code(s): F17.219 - Nicotine dependence, cigarettes, with unspecified nicotine-induced disorders Subjective Principal diagnosis: acute on chronic respiratory failure Interval history: [facility] Hospital day 1 Patient did well overnight; no acute events. Overnight: She did well with BiPap off for 10 minutes overnight, maintaining saturations in the mid 90's until she coughed multiple times...causing desaturation into the mid 80's. She recovered quickly. This morning, she is resting comfortably. Trialed her off BiPap; doing well on venti mask. Plan to transfer to [facility] today. Objective PUL Vital signs: Last Vital Signs Temp 97.0 F L 07/13/17 03:25 Pulse 66 07/13/17 06:00 Resp 18 07/13/17 06:00 BP 122/59 07/13/17 06:00 Pulse Ox 96 07/13/17 06:00 General appearance: no acute distress Eyes: nonicteric ENT: oropharynx moist Effort: normal Auscultation: bilateral: wheezes (scattered, faint) Cardiovascular: regular rate and rhythm Gastrointestinal: normoactive bowel sounds, soft, non-tender, non-distended Integumentary: normal Extremities: no cyanosis, no edema, no clubbing, pink and warm, pulses normal, no ischemia or petechiae Musculoskeletal: no deformities normal mental status, non-focal exam, pupils equal and round mood appropriate Results - Laboratory Findings CBC and BMP: 07/13/17 06:42 07/13/17 06:42 Abnormal lab findings: Abnormal lab results POC Glucose 278 (58-89) H 07/12/17 23:48 B-Natriuretic Peptide 207 pg/mL (Less than 100) H 07/12/17 16:14 - Clinical Findings Intake & Output: Intake & Output 07/12/17 07/12/17 07/13/17 15:59 23:59 07:59 Intake Total 0 / 0 100 / 100 1000 / 1000 Output Total 550 / 550 125 / 125 Balance 0 / 0 -450 / -450 875 / 875 Weight 134.5 kg 134.5 kg Consult Discharge Plan - Plan Referrals: Giselle Rhoades MD [Primary Care Provider] - <Rosalind Fuentes - Last Filed: 07/13/17 09:54> Date of Encounter: 07/13/17 Objective PUL Vital signs: Last Vital Signs Temp 97.3 F L 07/13/17 07:38 Pulse 96 07/13/17 09:00 Resp 16 07/13/17 09:00 BP 123/71 07/13/17 09:00 Pulse Ox 93 07/13/17 09:00 Results - Laboratory Findings CBC and BMP: 07/13/17 06:42 07/13/17 06:42 ABG ABG pH 7.34 pH Units (7.32-7.45) 07/13/17 06:37 ABG pCO2 58 mmHg (35-45) H 07/13/17 06:37 ABG pO2 86 mmHg (85-104) 07/13/17 06:37 ABG O2 Saturation 96 % (95-98) 07/13/17 06:37 Abnormal lab findings: Abnormal lab results WBC 19.7 K/mcL (4.3-11.1) H 07/13/17 06:42 Hgb 11.3 g/dL (11.5-15.4) L 07/13/17 06:42 MCHC 30.3 g/dL (31.6-35.5) L 07/13/17 06:42 RDW 15.9 % (11.5-14.5) H 07/13/17 06:42 Neutrophils # 18.7 K/mcL (1.6-8.9) H 07/13/17 06:42 Lymphocytes # 0.5 K/mcL (0.6-4.6) L 07/13/17 06:42 ABG pCO2 58 mmHg (35-45) H 07/13/17 06:37 ABG HCO3 32 mEq/L (21-27) H 07/13/17 06:37 ABG Total CO2 33 mEq/L (20-26) H 07/13/17 06:37 ABG Base Excess 4 mEq/L (-2 to 3) H 07/13/17 06:37 Carbon Dioxide 30 mEq/L (23-29) H 07/13/17 06:42 BUN 28 mg/dL (8-23) H 07/13/17 06:42 Creatinine 1.32 mg/dL (0.60-1.20) H 07/13/17 06:42 Est GFR ( Amer) 50 (> 60) L 07/13/17 06:42 Est GFR (Non-Af Amer) 41 (> 60) L 07/13/17 06:42 Glucose 283 mg/dL (70-105) H 07/13/17 06:42 POC Glucose 278 (58-89) H 07/12/17 23:48 Calculated Osmolality 302 (280-300) H 07/13/17 06:42 B-Natriuretic Peptide 207 pg/mL (Less than 100) H 07/12/17 16:14 - Clinical Findings Intake & Output: Intake & Output 07/12/17 07/13/17 07/13/17 23:59 07:59 15:59 Intake Total 250 / 250 1100 / 1100 Output Total 550 / 550 250 / 250 Balance -300 / -300 850 / 850 Weight 134.5 kg - Attending Attestation I examined this patient and my medical decision-making was reviewed with the Resident Physician. I agree with the documented findings, disposition and treatment plan as described except to the extent set forth below. Patient seen and examined. Labs, radiology, chart personally reviewed. Agree with resident's history and physical, assessment, plan with following comments: STOCK UNLOADER: Patient follows commands, Pulmonary: Acceptable oxygenation and ventilation and able to wean off noninvasive ventilation. Since patient making progress she can be transferred to the floor. Patient can follow-up as outpatient after discharge. Physical therapy and early mobilization as tolerated. Cardiovascular: stable GI: Nutrition per dietary and GI prophylaxis per routine Heme: DVT prophylaxis per routine ID: Continue antibiotics and plan to de-escalation Renal; urine out put and renal funtion reviewed. Diuresis as tolerated. Endorcine: blood glucose is monitored Lines: all lines checked and no evidence of infections Skin: skin care to prevent pressure ulcers per nursing routine care
[2017-07-13 06:42] LABS: ABG Base Excess 4 mEq/L (-2 to 3); ABG HCO3 32 mEq/L (21-27); ABG Oxygen Saturation 96 % (95-98); ABG PCO2 58 mmHg (35-45); ABG PH 7.34 pH Units (7.32-7.45); ABG PO2 86 mmHg (85-104); ABG TCO2 33 mEq/L (20-26); Blood Gas PEEP 8 cm H2O
[2017-07-13 07:14] LABS: Potassium 5.1 mEq/L (3.5-5.1)
[2017-07-13 07:31] LABS: Basophils % 0.1 %; Hematocrit 37.3 % (35.3-44.9); Hemoglobin 11.3 g/dL (11.5-15.4); Immature Granulocytes % 0.6 % (0-4); Lymphocytes # 0.5 K/mcL (0.6-4.6); Lymphocytes % 2.6 %; Mean Corpuscular HGB Conc 30.3 g/dL (31.6-35.5); Mean Corpuscular Volume 92.6 fL (83.0-100.0); Mean Platelet Volume 9.6 fL (9.4-12.4); Monocytes # 0.4 K/mcL (0.0-1.3); Monocytes % 2.2 %; Neutrophils # 18.7 K/mcL (1.6-8.9); Platelet Count 342 K/mcL (140-400); Red Blood Count 4.03 M/mcL (3.82-4.97); Red Cell Distribution Width 15.9 % (11.5-14.5); Segmented Neutrophils % 94.5 %
[2017-07-13] MEDS: Insulin DETEMIR 100 UNIT/ML X5UNITS SQ SCH ×2 (07:48→22:48)
[2017-07-13] MEDS: Levofloxacin 750 MG/150 ML 750 MG/150 ML BAG IVPB SCH (07:49)
[2017-07-13] MEDS: Budesonide/Formoterol 80/4.5 MDI IH SCH ×2 (08:55→21:51)
[2017-07-13] MEDS ORDERED: Nicotine 21 MG PATCH.TD24 TD SCH (09:00)
[2017-07-13] MEDS ORDERED: Dextrose Gel 15 GM/37.5 ML TUBE PO PRN ×2 (10:12)
[2017-07-13] MEDS ORDERED: Naloxone 0.4 MG/ML INJ IVP PRN (10:12)
[2017-07-13] MEDS ORDERED: Albuterol 2.5 MG/3 ML NEBULIZER IH PRN ×2 (10:12→20:35)
[2017-07-13] MEDS ORDERED: *HR* Dextrose 50 % in Water (Syg) 50 ML SYRINGE IVP PRN (10:12)
[2017-07-13] MEDS ORDERED: D5% in Water 1,000 ML IVC PRN (10:12)
[2017-07-13] MEDS ORDERED: Insulin LISPRO 300 UNITS/3 ML VIAL SQ SCH (12:00)
[2017-07-13] MEDS ORDERED: methylPREDNISolone 125 MG/2 ML VIAL IVP SCH (16:00)
[2017-07-13] MEDS ORDERED: Sennosides/Docusate Sodium TABLET PO PRN (20:35)
[2017-07-13] MEDS ORDERED: Insulin DETEMIR 100 UNIT/ML X5UNITS SQ SCH (21:00)
[2017-07-13] MEDS: diazePAM 5 MG TABLET PO SCH (21:28)
[2017-07-13] MEDS: Furosemide 40 MG TABLET PO SCH (21:28)
[2017-07-13] MEDS: Spironolactone 25 MG TABLET PO SCH (21:28)
[2017-07-13] MEDS: Magnesium Oxide 400 MG TABLET PO SCH (21:28)
[2017-07-13] MEDS: Gabapentin 300 MG CAPSULE PO SCH (21:28)
[2017-07-13] MEDS: Pantoprazole 40 MG VIAL IVP SCH (21:32)
[2017-07-13] MEDS: (Combivent Respimat InHALER) IH SCH (22:15)
[2017-07-13] MEDS: Fluticasone Propionate Nasal 50 MCG/SPRAY BOTTLE NS SCH (22:55)
[2017-07-14] MEDS: Piperacillin/Tazobactam 3.375 GM in 0.9 % Sodium Chloride Mini Bag 100 ML IVPB SCH ×3 (00:05→16:18)
[2017-07-14] MEDS: methylPREDNISolone 125 MG/2 ML VIAL IVP SCH ×3 (00:06→16:18)
[2017-07-14] MEDS: *HR* Heparin 5,000 UNIT/ML VIAL SQ SCH ×3 (00:06→16:18)
[2017-07-14] MEDS: Ipratropium/Albuterol Neb 3 ML IH SCH ×10 (03:45→22:25)
[2017-07-14] MEDS: (Combivent Respimat InHALER) IH SCH ×4 (03:49→22:15)
[2017-07-14 08:06] LABS: Basophils % 0.1 %; Hematocrit 39.1 % (35.3-44.9); Hemoglobin 11.9 g/dL (11.5-15.4); Immature Granulocytes % 1.2 % (0-4); Immature Platelets 1.9 % (1.1-6.1); Lymphocytes # 0.5 K/mcL (0.6-4.6); Lymphocytes % 3.4 %; Mean Corpuscular HGB Conc 30.4 g/dL (31.6-35.5); Mean Corpuscular Hemoglobin 28.1 pg (28.0-33.3); Mean Corpuscular Volume 92.2 fL (83.0-100.0); Mean Platelet Volume 9.6 fL (9.4-12.4); Monocytes # 0.5 K/mcL (0.0-1.3); Monocytes % 3.6 %; Neutrophils # 12.3 K/mcL (1.6-8.9); Platelet Count 375 K/mcL (140-400); Red Blood Count 4.24 M/mcL (3.82-4.97); Red Cell Distribution Width 15.7 % (11.5-14.5); Segmented Neutrophils % 91.7 %
[2017-07-14] MEDS: Aspirin Enteric Coated 325 MG Tablet PO SCH (08:22)
[2017-07-14] MEDS: diazePAM 5 MG TABLET PO SCH ×3 (08:22→20:30)
[2017-07-14] MEDS: Magnesium Oxide 400 MG TABLET PO SCH ×2 (08:22→20:31)
[2017-07-14] MEDS: Folic Acid 1 MG TABLET PO SCH (08:22)
[2017-07-14] MEDS: Spironolactone 25 MG TABLET PO SCH (08:22)
[2017-07-14] MEDS: Furosemide 40 MG TABLET PO SCH ×2 (08:22→20:31)
[2017-07-14] MEDS: FLUoxetine 20 MG CAPSULE PO SCH (08:22)
[2017-07-14] MEDS: Anastrozole 1 MG TABLET PO SCH (08:22)
[2017-07-14] MEDS: Levothyroxine 25 MCG TABLET PO SCH (08:22)
[2017-07-14] MEDS: Gabapentin 300 MG CAPSULE PO SCH ×3 (08:23→20:31)
[2017-07-14] MEDS: Pantoprazole 40 MG VIAL IVP SCH (08:23)
[2017-07-14] MEDS: Nicotine 21 MG PATCH.TD24 TD SCH (08:23)
[2017-07-14 08:27] LABS: Calcium 9.3 mg/dL (8.6-10.3); Potassium 4.2 mEq/L (3.5-5.1)
[2017-07-14] MEDS: Insulin LISPRO 300 UNITS/3 ML VIAL SQ SCH ×6 (08:36→20:51)
[2017-07-14] MEDS: Fluticasone Propionate Nasal 50 MCG/SPRAY BOTTLE NS SCH (08:38)
[2017-07-14] MEDS: (Breo Ellipta 200-25 Mcg Inh) IH SCH (08:39)
[2017-07-14] MEDS: Insulin DETEMIR 100 UNIT/ML X5UNITS SQ SCH (08:42)
[2017-07-14] MEDS ORDERED: Levofloxacin 750 MG/150 ML 750 MG/150 ML BAG IVPB SCH (09:00)
[2017-07-14] MEDS: Budesonide/Formoterol 80/4.5 MDI IH SCH ×2 (09:45→22:15)
[2017-07-14] MEDS ORDERED: Insulin LISPRO 300 UNITS/3 ML VIAL SQ STA (11:58)
[2017-07-14] MEDS: GuaiFENesin Liq 200 MG/10 ML UDC PO PRN (20:37)
[2017-07-14] MEDS ORDERED: Insulin DETEMIR 100 UNIT/ML X5UNITS SQ SCH (21:00)
--- NOTE | 2017-07-14 21:52 | Internal Med Progress Note ---
Date of Encounter: 07/14/17 Time of Encounter: 11:52 - Assessment and plan (1) Acute hypoxemic respiratory failure Current Visit: Yes Status: Acute Assessment and plan: Secondary to pneumonia and COPD exacerbation - Continue Duo Nebs - Solu Medrol, taper as tolerated - Bipap prn - Continue Levaquin, Vancomycin, Zosyn (2) COPD (chronic obstructive pulmonary disease) Current Visit: Yes Status: Chronic Qualifiers: COPD type: emphysema Emphysema type: unspecified Qualified Code(s): J43.9 - Emphysema, unspecified (3) Acute and chronic respiratory failure (ldxov-sd-nratdgn) Current Visit: No Status: Acute Qualifiers: Respiratory failure complication: hypoxia and hypercapnia Qualified Code(s) : J96.21 - Acute and chronic respiratory failure with hypoxia; J96.22 - Acute and chronic respiratory failure with hypercapnia; J96.22 - Acute and chronic respiratory failure with hypercapnia; J96.22 - Acute and chronic respiratory failure with hypercapnia (4) Acute exacerbation of chronic obstructive airways disease Current Visit: No Status: Acute (5) Acute kidney injury Current Visit: No Status: Acute Assessment and plan: She was placed on gentle IV fluid hydration, has been held. Today there has been slight improvement from 1.69 to 1.61 Baseline difficult to assess in the past 3 months has ranged from 0.7-2.14 Will avoid nephrotoxic medications, renally dose medications Recheck in AM. (6) Acute on chronic diastolic CHF (congestive heart failure) Current Visit: No Status: Acute (7) DVT prophylaxis Current Visit: No Status: Acute (8) CKD (chronic kidney disease) stage 4, GFR 15-29 ml/min Current Visit: No Status: Chronic (9) COPD (chronic obstructive pulmonary disease) Current Visit: No Status: Chronic Assessment and plan: Plan as above Qualifiers: COPD type: unspecified COPD Qualified Code(s): J44.9 - Chronic obstructive pulmonary disease, unspecified (10) Obstructive sleep apnea Current Visit: No Status: Chronic - Subjective Interval history: No acute events. - Constitutional Vitals: Temp Pulse Resp BP Pulse Ox 97.9 F 71 17 129/62 96 07/14/17 16:12 07/14/17 16:12 07/14/17 16:12 07/14/17 16:12 07/14/17 16:12 General appearance: Present: cooperative, A&O X 3, morbidly obese, pleasant, answers questions appropriately Exam: CVS: RRR Lungs: body habitus limits lung exam, decreased breath sounds, poor inspiratory effort Ext: no edema Internal Medicine: Result - Labs CBC & Chem 7: 07/16/17 03:51 07/16/17 03:51 Labs: Short CBC 07/14/17 Range/Units 07:43 WBC 13.4 H (4.3-11.1) K/mcL Hgb 11.9 (11.5-15.4) g/dL Hct 39.1 (35.3-44.9) % Plt Count 375 (140-400) K/mcL Neutrophils # 12.3 H (1.6-8.9) K/mcL BMP 07/14/17 07:43 Sodium 138 Potassium 4.2 Chloride 102 Carbon Dioxide 32 H BUN 38 H Creatinine 1.69 H Glucose 400 H Calcium 9.3 - ABG Interpretation ABG results: ABG ABG pH 7.34 pH Units (7.32-7.45) 07/13/17 06:37 ABG pCO2 58 mmHg (35-45) H 07/13/17 06:37 ABG pO2 86 mmHg (85-104) 07/13/17 06:37 ABG O2 Saturation 96 % (95-98) 07/13/17 06:37 - Impressions Impressions Chest X-Ray 07/14/17 04:00 IMPRESSION: Scattered opacities throughout the lungs bilaterally, greatest at the lung bases, similar to prior. Findings in the lung bases could be due to atelectasis or early pneumonia. D/ / Nir Presley MD / Nir Presley MD Interpreting Provider: Nir Presley MD Consult Discharge Plan - Plan Referrals: Giselle Rhoades MD [Primary Care Provider] -
[2017-07-14 22:18] LABS: Adenovirus Not Detected (Not Detect); Bordetella Pertussis Not Detected (Not Detect); Chlamydophila pneumoniae Not Detected (Not Detect); Coronavirus 229E Not Detected (Not Detect); Coronavirus HKU1 Not Detected (Not Detect); Coronavirus NL63 Not Detected (Not Detect); Coronavirus OC43 Not Detected (Not Detect); Human Metapneumovirus Not Detected (Not Detect); Human Rhinovirus/Enterovirus Not Detected (Not Detect); Influenza A Subtype 2009 H1 Not Detected (Not Detect); Influenza A Untypeable Not Detected (Not Detect); Influenza B Not Detected (Not Detect); Mycoplasma pneumoniae Not Detected (Not Detect); Parainfluenza Virus 1 Not Detected (Not Detect); Parainfluenza Virus 2 Not Detected (Not Detect); Parainfluenza Virus 3 Not Detected (Not Detect); Parainfluenza Virus 4 Not Detected (Not Detect); Respiratory Syncytial Virus Not Detected (Not Detect)
[2017-07-15] MEDS: *HR* Heparin 5,000 UNIT/ML VIAL SQ SCH ×3 (00:19→17:05)
[2017-07-15] MEDS: methylPREDNISolone 125 MG/2 ML VIAL IVP SCH ×2 (00:19→09:10)
[2017-07-15] MEDS: Piperacillin/Tazobactam 3.375 GM in 0.9 % Sodium Chloride Mini Bag 100 ML IVPB SCH ×3 (00:20→16:07)
[2017-07-15] MEDS: Ipratropium/Albuterol Neb 3 ML IH SCH ×10 (04:18→23:29)
[2017-07-15] MEDS: (Combivent Respimat InHALER) IH SCH (04:24)
[2017-07-15 06:01] LABS: Basophils % 0.1 %; Hematocrit 38.9 % (35.3-44.9); Hemoglobin 11.8 g/dL (11.5-15.4); Immature Granulocytes % 0.7 % (0-4); Lymphocytes # 0.5 K/mcL (0.6-4.6); Lymphocytes % 3.8 %; Mean Corpuscular HGB Conc 30.3 g/dL (31.6-35.5); Mean Corpuscular Hemoglobin 27.4 pg (28.0-33.3); Mean Corpuscular Volume 90.3 fL (83.0-100.0); Mean Platelet Volume 9.7 fL (9.4-12.4); Monocytes # 0.4 K/mcL (0.0-1.3); Monocytes % 3.4 %; Neutrophils # 11.3 K/mcL (1.6-8.9); Nucleated Red Blood Cells 0.3 /100 WBC (0); Platelet Count 361 K/mcL (140-400); Red Blood Count 4.31 M/mcL (3.82-4.97); Red Cell Distribution Width 15.2 % (11.5-14.5)
[2017-07-15 06:20] LABS: Calcium 9.1 mg/dL (8.6-10.3); Potassium 4.2 mEq/L (3.5-5.1)
[2017-07-15] MEDS: Insulin LISPRO 300 UNITS/3 ML VIAL SQ SCH ×6 (09:10→17:05)
[2017-07-15] MEDS: Pantoprazole 40 MG VIAL IVP SCH (09:10)
[2017-07-15] MEDS: diazePAM 5 MG TABLET PO SCH ×3 (09:11→21:19)
[2017-07-15] MEDS: FLUoxetine 20 MG CAPSULE PO SCH (09:11)
[2017-07-15] MEDS: Furosemide 40 MG TABLET PO SCH ×2 (09:11→17:04)
[2017-07-15] MEDS: Aspirin Enteric Coated 325 MG Tablet PO SCH (09:11)
[2017-07-15] MEDS: Anastrozole 1 MG TABLET PO SCH (09:11)
[2017-07-15] MEDS: Levothyroxine 25 MCG TABLET PO SCH (09:11)
[2017-07-15] MEDS: Magnesium Oxide 400 MG TABLET PO SCH ×2 (09:11→21:19)
[2017-07-15] MEDS: Gabapentin 300 MG CAPSULE PO SCH ×3 (09:11→21:19)
[2017-07-15] MEDS: Nicotine 21 MG PATCH.TD24 TD SCH (09:12)
[2017-07-15] MEDS: Fluticasone Propionate Nasal 50 MCG/SPRAY BOTTLE NS SCH (09:12)
[2017-07-15] MEDS: Folic Acid 1 MG TABLET PO SCH (09:12)
[2017-07-15] MEDS: (Breo Ellipta 200-25 Mcg Inh) IH SCH (09:13)
[2017-07-15] MEDS: Budesonide/Formoterol 80/4.5 MDI IH SCH ×2 (11:06→22:11)
[2017-07-15] MEDS ORDERED: Insulin Human Regular 10 UNIT in 0.9 % Sodium Chloride 10 ML IV ONE (13:27)
[2017-07-15 13:44] LABS: Hemoglobin A1C 9.3 %
[2017-07-15] MEDS: GuaiFENesin Liq 200 MG/10 ML UDC PO PRN (16:07)
--- NOTE | 2017-07-15 16:26 | Internal Med Progress Note ---
Date of Encounter: 07/15/17 Time of Encounter: 16:25 - Assessment and plan (1) Acute hypoxemic respiratory failure Current Visit: Yes Status: Acute Assessment and plan: Secondary to pneumonia and COPD exacerbation - Continue Duo Nebs - Solu Medrol, taper as tolerated - Bipap prn - Continue Levaquin, Vancomycin, Zosyn (2) Acute kidney injury Current Visit: No Status: Acute Assessment and plan: She was placed on gentle IV fluid hydration, has been held. Today there has been slight improvement from 1.69 to 1.61 Baseline difficult to assess in the past 3 months has ranged from 0.7-2.14 Will avoid nephrotoxic medications, renally dose medications Recheck in AM. (3) COPD (chronic obstructive pulmonary disease) Current Visit: No Status: Chronic Assessment and plan: Plan as above Qualifiers: COPD type: unspecified COPD Qualified Code(s): J44.9 - Chronic obstructive pulmonary disease, unspecified (4) Type 2 diabetes mellitus Current Visit: No Status: Chronic Assessment and plan: Hyperglycemic in 500s. Patient on Solu Medrol for COPD exacerbation. Restarted home Levemir Sliding scale 15 units humalog with meals Qualifiers: Diabetes mellitus complication status: without complication Diabetes mellitus [facility] insulin use: with supervisor intermediates use Qualified Code(s): E11.9 - Type 2 diabetes mellitus without complications; Z79.4 - [facility] (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 of insulin; Z79.4 - [facility] (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 of insulin; Z79.4 - [facility] ( 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 of insulin; Z79.4 - [facility] (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 of insulin (5) DVT prophylaxis Current Visit: Yes Status: Acute Assessment and plan: 5,000 units BID - Constitutional Vitals: Temp Pulse Resp BP Pulse Ox 98.5 F 85 20 137/76 90 07/15/17 16:00 07/15/17 16:00 07/15/17 16:00 07/15/17 16:00 07/15/17 16:00 General appearance: Present: cooperative, mild distress (mild to moderate respiratory distress), A&O X 3, morbidly obese, pleasant, answers questions appropriately Internal Medicine: Result - Labs CBC & Chem 7: 07/15/17 05:25 07/15/17 05:25 Labs: Short CBC 07/15/17 Range/Units 05:25 WBC 12.2 H (4.3-11.1) K/mcL Hgb 11.8 (11.5-15.4) g/dL Hct 38.9 (35.3-44.9) % Plt Count 361 (140-400) K/mcL Neutrophils # 11.3 H (1.6-8.9) K/mcL BMP 07/15/17 05:25 Sodium 137 Potassium 4.2 Chloride 99 Carbon Dioxide 31 H BUN 46 H Creatinine 1.61 H Glucose 365 H Calcium 9.1 - ABG Interpretation ABG results: ABG ABG pH 7.34 pH Units (7.32-7.45) 07/13/17 06:37 ABG pCO2 58 mmHg (35-45) H 07/13/17 06:37 ABG pO2 86 mmHg (85-104) 07/13/17 06:37 ABG O2 Saturation 96 % (95-98) 07/13/17 06:37 Consult Discharge Plan - Plan Referrals: Giselle Rhoades MD [Primary Care Provider] -
[2017-07-15] MEDS: MethylPREDNISolone 40 MG/ML VIAL IVP SCH (17:05)
[2017-07-15] MEDS ORDERED: Insulin LISPRO 300 UNITS/3 ML VIAL SQ SCH (21:00)
[2017-07-15] MEDS: Insulin DETEMIR 100 UNIT/ML X5UNITS SQ SCH (21:19)
[2017-07-16] MEDS: Piperacillin/Tazobactam 3.375 GM in 0.9 % Sodium Chloride Mini Bag 100 ML IVPB SCH ×3 (01:25→17:05)
[2017-07-16] MEDS: MethylPREDNISolone 40 MG/ML VIAL IVP SCH ×3 (01:26→17:05)
[2017-07-16] MEDS: *HR* Heparin 5,000 UNIT/ML VIAL SQ SCH ×3 (01:26→17:06)
[2017-07-16] MEDS: Ipratropium/Albuterol Neb 3 ML IH SCH ×6 (03:54→22:19)
[2017-07-16 04:39] LABS: Calcium 9.4 mg/dL (8.6-10.3); Potassium 4.3 mEq/L (3.5-5.1)
[2017-07-16 04:43] LABS: Basophils % 0.1 %; Hematocrit 39.9 % (35.3-44.9); Hemoglobin 12.4 g/dL (11.5-15.4); Immature Granulocytes % 0.5 % (0-4); Lymphocytes # 0.6 K/mcL (0.6-4.6); Lymphocytes % 3.6 %; Mean Corpuscular HGB Conc 31.1 g/dL (31.6-35.5); Mean Corpuscular Hemoglobin 27.7 pg (28.0-33.3); Mean Corpuscular Volume 89.3 fL (83.0-100.0); Mean Platelet Volume 9.6 fL (9.4-12.4); Monocytes # 0.7 K/mcL (0.0-1.3); Monocytes % 4.1 %; Neutrophils # 15.1 K/mcL (1.6-8.9); Platelet Count 359 K/mcL (140-400); Red Blood Count 4.47 M/mcL (3.82-4.97); Red Cell Distribution Width 15.4 % (11.5-14.5); Segmented Neutrophils % 91.7 %
[2017-07-16] MEDS: Levothyroxine 25 MCG TABLET PO SCH (05:20)
[2017-07-16] MEDS: GuaiFENesin Liq 200 MG/10 ML UDC PO PRN (05:20)
[2017-07-16] MEDS: Furosemide 40 MG TABLET PO SCH ×2 (08:13→17:04)
[2017-07-16] MEDS: Anastrozole 1 MG TABLET PO SCH (08:13)
[2017-07-16] MEDS: diazePAM 5 MG TABLET PO SCH ×3 (08:14→20:50)
[2017-07-16] MEDS: FLUoxetine 20 MG CAPSULE PO SCH (08:14)
[2017-07-16] MEDS: Gabapentin 300 MG CAPSULE PO SCH ×3 (08:14→20:50)
[2017-07-16] MEDS: Magnesium Oxide 400 MG TABLET PO SCH ×2 (08:14→20:50)
[2017-07-16] MEDS: Aspirin Enteric Coated 325 MG Tablet PO SCH (08:14)
[2017-07-16] MEDS: Folic Acid 1 MG TABLET PO SCH (08:14)
[2017-07-16] MEDS: Nicotine 21 MG PATCH.TD24 TD SCH (08:14)
[2017-07-16] MEDS: Insulin LISPRO 300 UNITS/3 ML VIAL SQ SCH ×7 (08:30→20:50)
--- NOTE | 2017-07-16 08:40 | Electrocardiograph Report ---
[place] [id number] Test Date: 2017-07-12 Pat Name: Carey Yang Department: 109 Room: 2NE30 Gender: F Equipment Service Technician: [facility] : 1955 Requested By: Celestino Escudero Order Number: [id number] Reading MD: Toro Thomas Measurements Intervals [place] Rate: 70 P: 41 MO: 198 QRS: 8 QRSD: 102 T: 46 QT: 479 QTc: 499 Interpretive Statements SINUS RHYTHM PROLONGED QT INTERVAL Electronically Signed On 07-16-2017 8:39:25 EST by Toro Thomas
[2017-07-16] MEDS: Fluticasone Propionate Nasal 50 MCG/SPRAY BOTTLE NS SCH (08:42)
[2017-07-16] MEDS: Budesonide/Formoterol 80/4.5 MDI IH SCH ×2 (10:28→22:18)
[2017-07-16] MEDS ORDERED: D5% in Water 1,000 ML IVC PRN (11:48)
[2017-07-16] MEDS ORDERED: *HR* Dextrose 50 % in Water (Syg) 50 ML SYRINGE IVP PRN (11:48)
[2017-07-16] MEDS ORDERED: Dextrose Gel 15 GM/37.5 ML TUBE PO PRN ×2 (11:48)
[2017-07-16] MEDS: Levofloxacin 750 MG/150 ML 750 MG/150 ML BAG IVPB SCH (12:19)
--- NOTE | 2017-07-16 16:35 | Internal Med Progress Note ---
Date of Encounter: 07/16/17 Time of Encounter: 16:34 - Subjective Interval history: ssessment and plan (1) Acute hypoxemic respiratory failure Secondary to pneumonia and COPD exacerbation - Continue Duo Nebs - Solu Medrol, taper as tolerated - Bipap prn - Continue Levaquin, Vancomycin, Zosyn COPD (chronic obstructive pulmonary disease) Plan as above Acute kidney injury She was placed on gentle IV fluid hydration, has been held. Today there has been slight improvement from 1.69 to 1.61 Baseline difficult to assess in the past 3 months has ranged from 0.7-2.14 Will avoid nephrotoxic medications, renally dose medications Recheck in AM. Type 2 diabetes mellitus Complicated by steroid use Restarted home Levemir Sliding scale 15 units humalog with meals DVT prophylaxis 5,000 units BID - Constitutional Vitals: Temp Pulse Resp BP Pulse Ox 97.9 F 80 18 144/73 91 07/16/17 15:22 07/16/17 15:22 07/16/17 16:28 07/16/17 15:22 07/16/17 16:28 General appearance: Present: cooperative, mild distress (mild to moderate respiratory distress), A&O X 3, morbidly obese, pleasant, answers questions appropriately - Head Head exam: Present: atraumatic, normocephalic - Eye Eye exam: Present: EOMI, PERRL, conjuntiva pink, sclera anicteric Pupils: Present: PERRL - Neck Neck exam general surgery: Present: supple, trachea midline. Absent: lymphadenopathy - Respiratory Respiratory exam: Present: CTAB. Absent: accessory muscle use, rales, rhonchi, wheezes - Cardiovascular Cardiovascular exam: Present: RRR, +S1, +S2. Absent: diastolic murmur, gallop, rubs, systolic murmur - GI/Abdominal GI/Abdominal exam: Present: normal bowel sounds, soft, no peritoneal signs. Absent: distended, tenderness - Extremities Exam Extremities exam: Present: warm, radial pulses palpable and symmetrical. Absent : calf tenderness, cyanotic, pedal edema - Neurological Exam Neurological exam: Present: CN II-XII intact, oriented X3, no focal deficits. Absent: pronater drift, facial droop, speech deficit - Skin Skin exam: Present: dry, intact Internal Medicine: Result - Labs CBC & Chem 7: 07/16/17 03:51 07/16/17 03:51 Labs: Short CBC 07/16/17 Range/Units 03:51 WBC 16.5 H (4.3-11.1) K/mcL Hgb 12.4 (11.5-15.4) g/dL Hct 39.9 (35.3-44.9) % Plt Count 359 (140-400) K/mcL Neutrophils # 15.1 H (1.6-8.9) K/mcL BMP 07/16/17 03:51 Sodium 138 Potassium 4.3 Chloride 99 Carbon Dioxide 32 H BUN 56 H Creatinine 1.35 H Glucose 312 H Calcium 9.4 - ABG Interpretation ABG results: ABG ABG pH 7.34 pH Units (7.32-7.45) 07/13/17 06:37 ABG pCO2 58 mmHg (35-45) H 07/13/17 06:37 ABG pO2 86 mmHg (85-104) 07/13/17 06:37 ABG O2 Saturation 96 % (95-98) 07/13/17 06:37 Consult Discharge Plan - Plan Referrals: Giselle Rhoades MD [Primary Care Provider] -
[2017-07-16] MEDS ORDERED: Insulin DETEMIR 100 UNIT/ML X5UNITS SQ ONE (18:17)
[2017-07-16] MEDS: Insulin DETEMIR 100 UNIT/ML X5UNITS SQ SCH (18:19)
[2017-07-17] MEDS: MethylPREDNISolone 40 MG/ML VIAL IVP SCH ×4 (00:38→23:44)
[2017-07-17] MEDS: Piperacillin/Tazobactam 3.375 GM in 0.9 % Sodium Chloride Mini Bag 100 ML IVPB SCH ×4 (00:38→23:43)
[2017-07-17] MEDS: *HR* Heparin 5,000 UNIT/ML VIAL SQ SCH ×4 (00:39→23:44)
[2017-07-17 03:22] LABS: Basophils % 0.1 %; Hematocrit 37.8 % (35.3-44.9); Hemoglobin 11.8 g/dL (11.5-15.4); Immature Granulocytes % 0.7 % (0-4); Lymphocytes # 0.5 K/mcL (0.6-4.6); Lymphocytes % 3.6 %; Mean Corpuscular HGB Conc 31.2 g/dL (31.6-35.5); Mean Corpuscular Hemoglobin 27.7 pg (28.0-33.3); Mean Corpuscular Volume 88.7 fL (83.0-100.0); Mean Platelet Volume 9.8 fL (9.4-12.4); Monocytes # 0.4 K/mcL (0.0-1.3); Monocytes % 2.5 %; Neutrophils # 13.2 K/mcL (1.6-8.9); Platelet Count 322 K/mcL (140-400); Red Blood Count 4.26 M/mcL (3.82-4.97); Red Cell Distribution Width 15.2 % (11.5-14.5); Segmented Neutrophils % 93.1 %
[2017-07-17 03:37] LABS: Calcium 9.3 mg/dL (8.6-10.3); Potassium 4.3 mEq/L (3.5-5.1)
[2017-07-17] MEDS: Ipratropium/Albuterol Neb 3 ML IH SCH ×4 (03:44→22:26)
[2017-07-17] MEDS: Levothyroxine 25 MCG TABLET PO SCH (06:02)
[2017-07-17] MEDS: Nicotine 21 MG PATCH.TD24 TD SCH (07:39)
[2017-07-17] MEDS: Aspirin Enteric Coated 325 MG Tablet PO SCH (07:42)
[2017-07-17] MEDS: Fluticasone Propionate Nasal 50 MCG/SPRAY BOTTLE NS SCH (07:43)
[2017-07-17] MEDS: diazePAM 5 MG TABLET PO SCH ×3 (07:44→20:30)
[2017-07-17] MEDS: Folic Acid 1 MG TABLET PO SCH (07:44)
[2017-07-17] MEDS: Gabapentin 300 MG CAPSULE PO SCH ×3 (07:44→20:31)
[2017-07-17] MEDS: FLUoxetine 20 MG CAPSULE PO SCH (07:44)
[2017-07-17] MEDS: Furosemide 40 MG TABLET PO SCH ×2 (07:44→16:52)
[2017-07-17] MEDS: Anastrozole 1 MG TABLET PO SCH (07:44)
[2017-07-17] MEDS: Magnesium Oxide 400 MG TABLET PO SCH ×2 (07:44→20:31)
[2017-07-17] MEDS: Insulin LISPRO 300 UNITS/3 ML VIAL SQ SCH ×7 (07:45→20:34)
[2017-07-17] MEDS: Budesonide/Formoterol 80/4.5 MDI IH SCH ×2 (10:42→22:26)
[2017-07-17] MEDS: Levofloxacin 750 MG/150 ML 750 MG/150 ML BAG IVPB SCH (14:54)
--- NOTE | 2017-07-17 17:19 | Internal Med Progress Note ---
Date of Encounter: 07/17/17 Time of Encounter: 17:18 - Subjective Interval history: Interval changes: Breathing comfortably BG still elevated Assessment and plan Acute hypoxemic respiratory failure -Secondary to COPD and PNA -Reprotedly had past (+) MRSA sputum cx -Respiratory panel completely negative -Clinically improved -Continue Duo Nebs -Solu Medrol -Bipap prn -Continue Levaquin and d/c Vancomycin, Zosyn -Retest sputum culture COPD (chronic obstructive pulmonary disease) Plan as above Acute kidney injury Resolving Cr 1.31 and eGFR 50 Baseline difficult to assess in the past 3 months has ranged from 0.7-2.14 Continue to avoid nephrotoxic medications Type 2 diabetes mellitus Complicated by steroid use Increased levemir to 5o units QHS Sliding scale Humalog with meals Non compliance with diabetic diet DVT prophylaxis 5,000 units BID - Constitutional Vitals: Temp Pulse Resp BP Pulse Ox 97.6 F 85 16 153/88 91 07/17/17 15:00 07/17/17 15:00 07/17/17 16:02 07/17/17 15:00 07/17/17 16:02 General appearance: Present: cooperative, A&O X 3, morbidly obese, pleasant, no acute distress, answers questions appropriately - Head Head exam: Present: atraumatic, normocephalic - Eye Eye exam: Present: PERRL, conjuntiva pink, sclera anicteric Pupils: Present: PERRL - Neck Neck exam general surgery: Present: supple, trachea midline. Absent: lymphadenopathy - Respiratory Respiratory exam: Present: CTAB. Absent: accessory muscle use, rales, rhonchi, wheezes - Cardiovascular Cardiovascular exam: Present: RRR, +S1, +S2. Absent: diastolic murmur, gallop, rubs, systolic murmur - GI/Abdominal GI/Abdominal exam: Present: normal bowel sounds, soft, no peritoneal signs. Absent: distended, guarding, rebound, rigid, tenderness - Extremities Exam Extremities exam: Present: warm, radial pulses palpable and symmetrical. Absent : calf tenderness, cyanotic, pedal edema - Neurological Exam Neurological exam: Present: CN II-XII intact, oriented X3, no focal deficits. Absent: pronater drift, facial droop, speech deficit - Psychiatric Psychiatric exam: Present: normal affect, normal mood - Skin Skin exam: Present: dry, intact Internal Medicine: Result - Labs CBC & Chem 7: 07/17/17 02:56 07/17/17 02:56 Labs: Short CBC 07/17/17 Range/Units 02:56 WBC 14.1 H (4.3-11.1) K/mcL Hgb 11.8 (11.5-15.4) g/dL Hct 37.8 (35.3-44.9) % Plt Count 322 (140-400) K/mcL Neutrophils # 13.2 H (1.6-8.9) K/mcL BMP 07/17/17 02:56 Sodium 138 Potassium 4.3 Chloride 98 Carbon Dioxide 32 H BUN 62 H Creatinine 1.31 H Glucose 309 H Calcium 9.3 - ABG Interpretation ABG results: ABG ABG pH 7.34 pH Units (7.32-7.45) 07/13/17 06:37 ABG pCO2 58 mmHg (35-45) H 07/13/17 06:37 ABG pO2 86 mmHg (85-104) 07/13/17 06:37 ABG O2 Saturation 96 % (95-98) 07/13/17 06:37 Consult Discharge Plan - Plan Referrals: Giselle Rhoades MD [Primary Care Provider] -
[2017-07-17] MEDS ORDERED: Insulin DETEMIR 100 UNIT/ML X5UNITS SQ SCH (21:00)
[2017-07-18 01:51] LABS: Basophils % 0.1 %; Hematocrit 38.1 % (35.3-44.9); Hemoglobin 12.1 g/dL (11.5-15.4); Immature Granulocytes % 0.6 % (0-4); Lymphocytes # 0.6 K/mcL (0.6-4.6); Lymphocytes % 3.5 %; Mean Corpuscular HGB Conc 31.8 g/dL (31.6-35.5); Mean Corpuscular Hemoglobin 27.9 pg (28.0-33.3); Mean Platelet Volume 9.7 fL (9.4-12.4); Monocytes # 0.6 K/mcL (0.0-1.3); Monocytes % 3.6 %; Platelet Count 323 K/mcL (140-400); Red Blood Count 4.33 M/mcL (3.82-4.97); Red Cell Distribution Width 15.1 % (11.5-14.5); Segmented Neutrophils % 92.2 %
[2017-07-18 02:15] LABS: Calcium 9.5 mg/dL (8.6-10.3); Potassium 4.2 mEq/L (3.5-5.1)
[2017-07-18] MEDS: Ipratropium/Albuterol Neb 3 ML IH SCH ×4 (03:52→22:55)
[2017-07-18] MEDS: Levothyroxine 25 MCG TABLET PO SCH (05:43)
[2017-07-18] MEDS: Insulin LISPRO 300 UNITS/3 ML VIAL SQ SCH ×5 (09:11→21:56)
[2017-07-18] MEDS: Piperacillin/Tazobactam 3.375 GM in 0.9 % Sodium Chloride Mini Bag 100 ML IVPB SCH ×2 (09:11→15:33)
[2017-07-18] MEDS: Furosemide 40 MG TABLET PO SCH ×2 (09:11→17:51)
[2017-07-18] MEDS: *HR* Heparin 5,000 UNIT/ML VIAL SQ SCH ×2 (09:11→15:31)
[2017-07-18] MEDS: MethylPREDNISolone 40 MG/ML VIAL IVP SCH ×2 (09:11→15:33)
[2017-07-18] MEDS: Aspirin Enteric Coated 325 MG Tablet PO SCH (09:12)
[2017-07-18] MEDS: Fluticasone Propionate Nasal 50 MCG/SPRAY BOTTLE NS SCH (09:12)
[2017-07-18] MEDS: Magnesium Oxide 400 MG TABLET PO SCH ×2 (09:12→21:55)
[2017-07-18] MEDS: Nicotine 21 MG PATCH.TD24 TD SCH (09:12)
[2017-07-18] MEDS: Anastrozole 1 MG TABLET PO SCH (09:12)
[2017-07-18] MEDS: Folic Acid 1 MG TABLET PO SCH (09:12)
[2017-07-18] MEDS: Gabapentin 300 MG CAPSULE PO SCH ×3 (09:12→21:55)
[2017-07-18] MEDS: FLUoxetine 20 MG CAPSULE PO SCH (09:13)
[2017-07-18] MEDS: diazePAM 5 MG TABLET PO SCH ×3 (09:13→21:55)
[2017-07-18 09:18] LABS: Mycoplasma pneumoniae IgG 0.51 U/L (<=0.09)
[2017-07-18] MEDS: Budesonide/Formoterol 80/4.5 MDI IH SCH ×4 (10:59→22:58)
[2017-07-18] MEDS: levoFLOXacin 750 MG TABLET PO SCH (12:28)
--- NOTE | 2017-07-18 15:06 | Internal Med Progress Note ---
Date of Encounter: 07/18/17 Time of Encounter: 15:14 - Subjective Interval history: Interval changes: Breathing comfortably BG still elevated Found eating pork rhines and cheetos throughout the day complicating BG mgt and delaying her discharge. She was ready to be discharged today but despite several adjustments to her her insulin regimen she continues to eat bags of junk food brought in by family. Her BG was >400 causing her to be held another day. Assessment and plan Acute hypoxemic respiratory failure -Secondary to COPD and PNA -Reprotedly had past (+) MRSA sputum cx -Respiratory panel completely negative -Clinically improved -Continue Duo Nebs -Solu Medrol changed to Prednisone -Bipap as needed -Continue Levaquin but d/c Vancomycin, Zosyn -Retest sputum culture COPD (chronic obstructive pulmonary disease) Plan as above Acute kidney injury Resolving Cr 1.31 and eGFR 50 Baseline difficult to assess in the past 3 months has ranged from 0.7-2.14 Continue to avoid nephrotoxic medications Type 2 diabetes mellitus Complicated by steroid use Increased levemir to 5o units QHS Sliding scale Humalog with meals Non compliance with diabetic diet DVT prophylaxis 5,000 units BID - Constitutional Vitals: Temp Pulse Resp BP Pulse Ox 97.9 F 82 18 147/84 93 07/18/17 10:55 07/18/17 10:55 07/18/17 10:55 07/18/17 10:55 07/18/17 10:55 General appearance: Present: cooperative, A&O X 3, morbidly obese, pleasant, no acute distress, answers questions appropriately - Head Head exam: Present: atraumatic, normocephalic - Eye Eye exam: Present: PERRL, conjuntiva pink, sclera anicteric Pupils: Present: PERRL - Neck Neck exam general surgery: Present: supple, trachea midline. Absent: lymphadenopathy, tenderness, thyromegaly - Respiratory Respiratory exam: Present: CTAB. Absent: accessory muscle use, rales, rhonchi, wheezes - Cardiovascular Cardiovascular exam: Present: RRR, +S1, +S2. Absent: diastolic murmur, gallop, rubs, systolic murmur - GI/Abdominal GI/Abdominal exam: Present: normal bowel sounds, soft, no peritoneal signs. Absent: distended, firm, guarding, rigid, tenderness - Extremities Exam Extremities exam: Present: warm, radial pulses palpable and symmetrical. Absent : calf tenderness, cyanotic, pedal edema - Neurological Exam Neurological exam: Present: CN II-XII intact, oriented X3, no focal deficits. Absent: pronater drift, facial droop, speech deficit - Skin Skin exam: Present: dry, intact Internal Medicine: Result - Labs CBC & Chem 7: 07/18/17 01:44 07/18/17 01:44 Labs: Short CBC 07/18/17 Range/Units 01:44 WBC 16.3 H (4.3-11.1) K/mcL Hgb 12.1 (11.5-15.4) g/dL Hct 38.1 (35.3-44.9) % Plt Count 323 (140-400) K/mcL Neutrophils # 15.0 H (1.6-8.9) K/mcL BMP 07/18/17 01:44 Sodium 138 Potassium 4.2 Chloride 98 Carbon Dioxide 33 H BUN 62 H Creatinine 1.25 H Glucose 231 H Calcium 9.5 - ABG Interpretation ABG results: ABG ABG pH 7.34 pH Units (7.32-7.45) 07/13/17 06:37 ABG pCO2 58 mmHg (35-45) H 07/13/17 06:37 ABG pO2 86 mmHg (85-104) 07/13/17 06:37 ABG O2 Saturation 96 % (95-98) 07/13/17 06:37 Consult Discharge Plan - Plan Referrals: Giselle Rhoades MD [Primary Care Provider] - (pcp has been requested)
[2017-07-18] MEDS: predniSONE 20 MG TABLET PO SCH (17:50)
[2017-07-18] MEDS: Insulin DETEMIR 100 UNIT/ML X5UNITS SQ SCH (21:56)
[2017-07-19 01:38] LABS: Basophils % 0.1 %; Hematocrit 37.5 % (35.3-44.9); Hemoglobin 11.8 g/dL (11.5-15.4); Immature Granulocytes % 0.7 % (0-4); Lymphocytes # 0.5 K/mcL (0.6-4.6); Mean Corpuscular HGB Conc 31.5 g/dL (31.6-35.5); Mean Corpuscular Hemoglobin 27.9 pg (28.0-33.3); Mean Corpuscular Volume 88.7 fL (83.0-100.0); Mean Platelet Volume 9.9 fL (9.4-12.4); Monocytes # 0.8 K/mcL (0.0-1.3); Monocytes % 4.8 %; Neutrophils # 14.6 K/mcL (1.6-8.9); Platelet Count 324 K/mcL (140-400); Red Blood Count 4.23 M/mcL (3.82-4.97); Red Cell Distribution Width 15.4 % (11.5-14.5); Segmented Neutrophils % 91.4 %
[2017-07-19 01:53] LABS: Calcium 9.2 mg/dL (8.6-10.3); Potassium 4.1 mEq/L (3.5-5.1)
[2017-07-19] MEDS: *HR* Heparin 5,000 UNIT/ML VIAL SQ SCH ×3 (03:56→16:48)
[2017-07-19] MEDS: Ipratropium/Albuterol Neb 3 ML IH SCH ×4 (03:57→22:03)
[2017-07-19] MEDS: Levothyroxine 25 MCG TABLET PO SCH (06:11)
[2017-07-19] MEDS: Anastrozole 1 MG TABLET PO SCH (08:47)
[2017-07-19] MEDS: Aspirin Enteric Coated 325 MG Tablet PO SCH (08:47)
[2017-07-19] MEDS: FLUoxetine 20 MG CAPSULE PO SCH (08:49)
[2017-07-19] MEDS: predniSONE 20 MG TABLET PO SCH ×2 (08:50→16:47)
[2017-07-19] MEDS: Folic Acid 1 MG TABLET PO SCH (08:50)
[2017-07-19] MEDS: Insulin LISPRO 300 UNITS/3 ML VIAL SQ SCH ×7 (08:50→21:33)
[2017-07-19] MEDS: diazePAM 5 MG TABLET PO SCH ×3 (08:50→21:44)
[2017-07-19] MEDS: Gabapentin 300 MG CAPSULE PO SCH ×3 (08:50→21:44)
[2017-07-19] MEDS: Furosemide 40 MG TABLET PO SCH ×2 (08:50→16:47)
[2017-07-19] MEDS: Magnesium Oxide 400 MG TABLET PO SCH ×2 (08:50→21:44)
[2017-07-19] MEDS: levoFLOXacin 750 MG TABLET PO SCH (08:50)
[2017-07-19] MEDS: Nicotine 21 MG PATCH.TD24 TD SCH (08:51)
[2017-07-19] MEDS: Fluticasone Propionate Nasal 50 MCG/SPRAY BOTTLE NS SCH (08:51)
[2017-07-19] MEDS: Budesonide/Formoterol 80/4.5 MDI IH SCH ×2 (09:57→22:04)
--- NOTE | 2017-07-19 12:40 | Internal Med Progress Note ---
Date of Encounter: 07/19/17 Time of Encounter: 12:40 - Subjective Interval history: Interval changes: Breathing comfortably BG still elevated Found eating pork rhines and cheetos throughout the day complicating BG mgt and delaying her discharge. She was ready to be discharged today but despite several adjustments to her her insulin regimen she continues to eat bags of junk food brought in by family. Her BG was >400 causing her to be held another day. 07/19/18: Desaturation over night Discharge delayed do above Assessment and plan Acute hypoxemic respiratory failure -Secondary to COPD and PNA -Reprotedly had past (+) MRSA sputum cx -Respiratory panel completely negative -Clinically improved -Continue Duo Nebs -Solu Medrol changed to Prednisone -Bipap as needed -Continue Levaquin but d/c Vancomycin, Zosyn -Retest sputum culture (unable to provide specimen) COPD (chronic obstructive pulmonary disease) Plan as above Acute kidney injury Resolving Cr 1.31 and eGFR 50 Baseline difficult to assess in the past 3 months has ranged from 0.7-2.14 Continue to avoid nephrotoxic medications Type 2 diabetes mellitus Complicated by steroid use Increased levemir to 60 units QHS Sliding scale Humalog with meals 15 units Humalog scheduled with meals Non compliance with diabetic diet BG improved today DVT prophylaxis 5,000 units BID - Constitutional Vitals: Temp Pulse Resp BP Pulse Ox 97.8 F 75 16 139/70 92 07/19/17 08:00 07/19/17 08:00 07/19/17 09:58 07/19/17 08:00 07/19/17 09:58 General appearance: Present: cooperative, A&O X 3, morbidly obese, pleasant, no acute distress, answers questions appropriately - Head Head exam: Present: atraumatic, normocephalic - Eye Eye exam: Present: PERRL, conjuntiva pink, sclera anicteric Pupils: Present: PERRL - Neck Neck exam general surgery: Present: supple, trachea midline. Absent: lymphadenopathy - Respiratory Respiratory exam: Present: CTAB. Absent: accessory muscle use, rales, rhonchi, wheezes - Cardiovascular Cardiovascular exam: Present: RRR, +S1, +S2. Absent: diastolic murmur, gallop, rubs, systolic murmur - GI/Abdominal GI/Abdominal exam: Present: normal bowel sounds, soft, no peritoneal signs. Absent: distended, tenderness - Extremities Exam Extremities exam: Present: warm, radial pulses palpable and symmetrical. Absent : calf tenderness, cyanotic, pedal edema - Neurological Exam Neurological exam: Present: CN II-XII intact, oriented X3, no focal deficits. Absent: pronater drift, facial droop, speech deficit - Skin Skin exam: Present: dry, intact Internal Medicine: Result - Labs CBC & Chem 7: 07/20/17 00:49 07/20/17 00:49 Labs: Short CBC 07/19/17 Range/Units 01:19 WBC 16.0 H (4.3-11.1) K/mcL Hgb 11.8 (11.5-15.4) g/dL Hct 37.5 (35.3-44.9) % Plt Count 324 (140-400) K/mcL Neutrophils # 14.6 H (1.6-8.9) K/mcL BMP 07/19/17 01:19 Sodium 139 Potassium 4.1 Chloride 98 Carbon Dioxide 32 H BUN 65 H Creatinine 1.26 H Glucose 292 H Calcium 9.2 - ABG Interpretation ABG results: ABG ABG pH 7.34 pH Units (7.32-7.45) 07/13/17 06:37 ABG pCO2 58 mmHg (35-45) H 07/13/17 06:37 ABG pO2 86 mmHg (85-104) 07/13/17 06:37 ABG O2 Saturation 96 % (95-98) 07/13/17 06:37 Consult Discharge Plan - Plan Referrals: Giselle Rhoades MD [Primary Care Provider] - (pcp has been requested)
[2017-07-19] MEDS ORDERED: Bisacodyl 10 MG RECTAL SUPPOSITORY RC PRN (19:12)
[2017-07-20] MEDS: Insulin DETEMIR 100 UNIT/ML X5UNITS SQ SCH ×2 (00:25→22:27)
[2017-07-20] MEDS: *HR* Heparin 5,000 UNIT/ML VIAL SQ SCH ×4 (00:25→23:55)
[2017-07-20 01:05] LABS: Basophils % 0.1 %; Eosinophils % 0.2 %; Hematocrit 39.8 % (35.3-44.9); Hemoglobin 12.4 g/dL (11.5-15.4); Immature Granulocytes % 0.8 % (0-4); Lymphocytes % 5.4 %; Mean Corpuscular HGB Conc 31.2 g/dL (31.6-35.5); Mean Corpuscular Volume 89.8 fL (83.0-100.0); Mean Platelet Volume 9.7 fL (9.4-12.4); Monocytes % 5.3 %; Platelet Count 311 K/mcL (140-400); Red Blood Count 4.43 M/mcL (3.82-4.97); Red Cell Distribution Width 15.4 % (11.5-14.5); Segmented Neutrophils % 88.2 %
[2017-07-20 01:06] LABS: Lymphocytes # 0.7 K/mcL (0.6-4.6); Monocytes # 0.7 K/mcL (0.0-1.3); Neutrophils # 11.1 K/mcL (1.6-8.9)
[2017-07-20 01:22] LABS: Calcium 9.5 mg/dL (8.6-10.3); Potassium 4.3 mEq/L (3.5-5.1)
[2017-07-20] MEDS: Ipratropium/Albuterol Neb 3 ML IH SCH ×4 (04:44→21:55)
[2017-07-20] MEDS: Levothyroxine 25 MCG TABLET PO SCH (06:14)
[2017-07-20] MEDS: Insulin LISPRO 300 UNITS/3 ML VIAL SQ SCH ×7 (09:33→21:19)
[2017-07-20] MEDS: Folic Acid 1 MG TABLET PO SCH (09:35)
[2017-07-20] MEDS: predniSONE 20 MG TABLET PO SCH (09:35)
[2017-07-20] MEDS: Magnesium Oxide 400 MG TABLET PO SCH ×2 (09:35→21:15)
[2017-07-20] MEDS: Aspirin Enteric Coated 325 MG Tablet PO SCH (09:35)
[2017-07-20] MEDS: Nicotine 21 MG PATCH.TD24 TD SCH (09:36)
[2017-07-20] MEDS: diazePAM 5 MG TABLET PO SCH ×3 (09:36→21:16)
[2017-07-20] MEDS: Anastrozole 1 MG TABLET PO SCH (09:36)
[2017-07-20] MEDS: levoFLOXacin 750 MG TABLET PO SCH (09:36)
[2017-07-20] MEDS: FLUoxetine 20 MG CAPSULE PO SCH (09:36)
[2017-07-20] MEDS: Furosemide 40 MG TABLET PO SCH ×2 (09:36→17:29)
[2017-07-20] MEDS: Gabapentin 300 MG CAPSULE PO SCH ×3 (09:36→21:16)
[2017-07-20] MEDS: Fluticasone Propionate Nasal 50 MCG/SPRAY BOTTLE NS SCH (09:37)
[2017-07-20] MEDS: Budesonide/Formoterol 80/4.5 MDI IH SCH (09:55)
--- NOTE | 2017-07-20 15:54 | Internal Med Progress Note ---
Date of Encounter: 07/20/17 Time of Encounter: 15:51 - Subjective Interval history: Interval changes: 07/18/2017: Breathing comfortably Antibiotics and steroids deescalated yesterday in anticipation of discharge today. Her BG was >400 causing her to be held another day. Found eating pork rhines and cheetos throughout the day complicating BG mgt and delaying her discharge. She was ready to be discharged today but despite several adjustments to her her insulin regimen she continues to eat bags of junk food brought in by family. 07/19/18: Desaturation over night Discharge delayed do above 07/20/2017: O2 requirement has increased in the past 24-36 hrs On 14 L HF-O2 off BiPAP She was improving and steroids and antibiotics were deescalated over past two days. Increase steroids and restart Vanc and Zosyn. Asking for Xanax but already taking Valium 5mg TID Angry that she isn't being discharged despite very high O2 demand Assessment and plan Acute hypoxemic respiratory failure -Secondary to COPD and PNA -Reprotedly had past (+) MRSA sputum cx -Respiratory panel completely negative -Clinically improved -Continue Duo Nebs -Solu Medrol changed to Prednisone -Bipap as needed -Retest sputum culture (unable to provide specimen) -Because of worsening respiratory status SoluMedrol, Vanc and Zosyn restarted. COPD (chronic obstructive pulmonary disease) Plan as above Acute kidney injury Resolving Cr 1.31 and eGFR 50 Baseline difficult to assess in the past 3 months has ranged from 0.7-2.14 Continue to avoid nephrotoxic medications Type 2 diabetes mellitus Complicated by steroid use Increased levemir to 60 units QHS Sliding scale Humalog with meals 15 units Humalog scheduled with meals Non compliance with diabetic diet BG improved improved DVT prophylaxis 5,000 units BID - Constitutional Vitals: Temp Pulse Resp BP Pulse Ox 97.3 F L 82 16 129/91 90 07/20/17 11:32 07/20/17 11:32 07/20/17 11:32 07/20/17 11:32 07/20/17 11:32 General appearance: Present: cooperative, A&O X 3, morbidly obese, no acute distress, answers questions appropriately. Absent: pleasant Exam: Despite high supplemental O2 demand she is not in acute distress - Head Head exam: Present: atraumatic, normocephalic - Eye Eye exam: Present: EOMI, PERRL, conjuntiva pink, sclera anicteric - Neck Neck exam general surgery: Present: trachea midline. Absent: lymphadenopathy, tenderness, thyromegaly - Respiratory Respiratory exam: Present: rhonchi, wheezes. Absent: accessory muscle use, chest wall tenderness, decreased breath sounds, respiratory distress - Cardiovascular Cardiovascular exam: Present: tachycardia. Absent: irregular rhythm, JVD - GI/Abdominal GI/Abdominal exam: Absent: hernia, rebound, rigid, tenderness - Neurological Exam Neurological exam: Present: CN II-XII intact, no focal deficits - Psychiatric Psychiatric exam: Present: agitated. Absent: normal affect, normal mood - Skin Skin exam: Present: dry, warm. Absent: mottled Internal Medicine: Result - Labs CBC & Chem 7: 07/20/17 00:49 07/20/17 00:49 Labs: Short CBC 07/20/17 Range/Units 00:49 WBC 12.6 H (4.3-11.1) K/mcL Hgb 12.4 (11.5-15.4) g/dL Hct 39.8 (35.3-44.9) % Plt Count 311 (140-400) K/mcL Neutrophils # 11.1 H (1.6-8.9) K/mcL BMP 07/20/17 00:49 Sodium 139 Potassium 4.3 Chloride 96 L Carbon Dioxide 39 H BUN 57 H Creatinine 1.37 H Glucose 155 H Calcium 9.5 - ABG Interpretation ABG results: ABG ABG pH 7.34 pH Units (7.32-7.45) 07/13/17 06:37 ABG pCO2 58 mmHg (35-45) H 07/13/17 06:37 ABG pO2 86 mmHg (85-104) 07/13/17 06:37 ABG O2 Saturation 96 % (95-98) 07/13/17 06:37 Consult Discharge Plan - Plan Referrals: Giselle Rhoades MD [Primary Care Provider] - (pcp has been requested)
[2017-07-20] MEDS: Piperacillin/Tazobactam 3.375 GM in 0.9 % Sodium Chloride Mini Bag 100 ML IVPB SCH ×3 (17:28→23:56)
[2017-07-20] MEDS: MethylPREDNISolone 40 MG/ML VIAL IVP SCH ×2 (17:30→23:55)
[2017-07-20] MEDS ORDERED: Furosemide 40 MG/4 ML VIAL IVP ONE (21:26)
[2017-07-20] MEDS: Budesonide/Formoterol 160/4.5 MDI IH SCH (21:55)
[2017-07-21] MEDS: Ipratropium/Albuterol Neb 3 ML IH SCH ×4 (03:33→22:34)
[2017-07-21] MEDS: MethylPREDNISolone 40 MG/ML VIAL IVP SCH ×3 (05:46→18:29)
[2017-07-21] MEDS: Levothyroxine 25 MCG TABLET PO SCH (05:46)
[2017-07-21] MEDS: Tiotropium 18 MCG inhalation IH SCH (08:06)
[2017-07-21] MEDS: Magnesium Oxide 400 MG TABLET PO SCH ×2 (08:22→21:15)
[2017-07-21] MEDS: Anastrozole 1 MG TABLET PO SCH (08:22)
[2017-07-21] MEDS: Aspirin Enteric Coated 325 MG Tablet PO SCH (08:23)
[2017-07-21] MEDS: diazePAM 5 MG TABLET PO SCH ×3 (08:23→21:14)
[2017-07-21] MEDS: Folic Acid 1 MG TABLET PO SCH (08:23)
[2017-07-21] MEDS: FLUoxetine 20 MG CAPSULE PO SCH (08:23)
[2017-07-21] MEDS: Nicotine 21 MG PATCH.TD24 TD SCH (08:23)
[2017-07-21] MEDS: Gabapentin 300 MG CAPSULE PO SCH ×3 (08:23→21:15)
[2017-07-21] MEDS: Furosemide 40 MG TABLET PO SCH ×2 (08:23→18:33)
[2017-07-21] MEDS: Piperacillin/Tazobactam 3.375 GM in 0.9 % Sodium Chloride Mini Bag 100 ML IVPB SCH ×2 (08:24→18:28)
[2017-07-21] MEDS: Insulin LISPRO 300 UNITS/3 ML VIAL SQ SCH ×7 (08:25→21:15)
[2017-07-21] MEDS: *HR* Heparin 5,000 UNIT/ML VIAL SQ SCH ×2 (08:25→18:28)
[2017-07-21] MEDS: Fluticasone Propionate Nasal 50 MCG/SPRAY BOTTLE NS SCH (08:26)
--- NOTE | 2017-07-21 08:50 | Internal Med Progress Note ---
Date of Encounter: 07/21/17 Time of Encounter: 08:25 - Subjective Interval history: Interval changes: 07/18/2017: Breathing comfortably Antibiotics and steroids deescalated yesterday in anticipation of discharge today. Her BG was >400 causing her to be held another day. Found eating pork rhines and cheetos throughout the day complicating BG mgt and delaying her discharge. She was ready to be discharged today but despite several adjustments to her her insulin regimen she continues to eat bags of junk food brought in by family. 07/19/18: Desaturation over night Discharge delayed do above 07/20/2017: O2 requirement has increased in the past 24-36 hrs On 14 L HF-O2 off BiPAP She was improving and steroids and antibiotics were deescalated over past two days. Increase steroids and restart Vanc and Zosyn. Asking for Xanax but already taking Valium 5mg TID Angry that she isn't being discharged despite very high O2 demand 07/21/2017: In bedside chair with HF-NC at 14 L/min Feels good christmas bell ringer MD called to see her last night and CXR ordered No PTX,obvious infiltrate noted. Atelectasis and small pleural effusion noted Assessment and plan Acute hypoxemic respiratory failure -Secondary to COPD and PNA -Reprotedly had past (+) MRSA sputum cx -Respiratory panel completely negative -Clinically improved -Continue Duo Nebs -Solu Medrol changed to Prednisone -Bipap as needed -Retest sputum culture (unable to provide specimen) -Because of worsening respiratory status SoluMedrol, Vanc and Zosyn restarted. -CTA-Chest ordered to r/o PE -Echo ordered COPD (chronic obstructive pulmonary disease) Plan as above Acute kidney injury Resolving Cr 1.31 and eGFR 50 Baseline difficult to assess in the past 3 months has ranged from 0.7-2.14 Continue to avoid nephrotoxic medications Type 2 diabetes mellitus Complicated by steroid use Increased levemir to 60 units QHS Sliding scale Humalog with meals 15 units Humalog scheduled with meals Non compliance with diabetic diet BG improved improved Hx of breast Cancer: -F/u appt in August Hx of prior VTE: -IVC filter DVT prophylaxis 5,000 units BID - Constitutional Vitals: Temp Pulse Resp BP Pulse Ox 97.5 F L 76 16 172/86 94 07/21/17 07:14 07/21/17 07:14 07/21/17 07:14 07/21/17 07:14 07/21/17 07:14 General appearance: Present: cooperative, A&O X 3, morbidly obese, pleasant, no acute distress, answers questions appropriately - Head Head exam: Present: atraumatic, normocephalic - Eye Eye exam: Present: PERRL, conjuntiva pink, sclera anicteric Pupils: Present: PERRL - Neck Neck exam general surgery: Present: supple, trachea midline. Absent: lymphadenopathy - Respiratory Respiratory exam: Present: rales. Absent: accessory muscle use, rhonchi, wheezes - Cardiovascular Cardiovascular exam: Present: RRR, +S1, +S2. Absent: diastolic murmur, gallop, rubs, systolic murmur - GI/Abdominal GI/Abdominal exam: Present: normal bowel sounds, soft, no peritoneal signs. Absent: distended, tenderness - Extremities Exam Extremities exam: Present: warm, radial pulses palpable and symmetrical. Absent : calf tenderness, cyanotic, pedal edema - Neurological Exam Neurological exam: Present: CN II-XII intact, oriented X3, no focal deficits. Absent: pronater drift, facial droop, speech deficit - Psychiatric Psychiatric exam: Present: normal affect, normal mood - Skin Skin exam: Present: dry, intact Internal Medicine: Result - Labs CBC & Chem 7: 07/20/17 00:49 07/20/17 00:49 - ABG Interpretation ABG results: ABG ABG pH 7.34 pH Units (7.32-7.45) 07/13/17 06:37 ABG pCO2 58 mmHg (35-45) H 07/13/17 06:37 ABG pO2 86 mmHg (85-104) 07/13/17 06:37 ABG O2 Saturation 96 % (95-98) 07/13/17 06:37 - Impressions Impressions Chest X-Ray 07/20/17 20:12 IMPRESSION: Left basilar atelectasis with possible small left pleural effusion. D/ / 07/20/2017 21:47:15 Rony Sumner MD / tyrone Interpreting Provider: Rony Sumner MD Consult Discharge Plan - Plan Referrals: Giselle Rhoades MD [Primary Care Provider] - (pcp has been requested)
[2017-07-21] MEDS: traMADol 50 MG TABLET PO PRN ×3 (08:51→21:38)
[2017-07-21] MEDS: Budesonide/Formoterol 160/4.5 MDI IH SCH ×2 (09:08→22:34)
[2017-07-21 09:10] LABS: Basophils % 0.1 %; Hemoglobin 12.3 g/dL (11.5-15.4); Immature Granulocytes % 0.9 % (0-4); Lymphocytes # 0.5 K/mcL (0.6-4.6); Mean Corpuscular Hemoglobin 27.6 pg (28.0-33.3); Mean Corpuscular Volume 91.9 fL (83.0-100.0); Mean Platelet Volume 10.2 fL (9.4-12.4); Monocytes # 0.2 K/mcL (0.0-1.3); Monocytes % 1.3 %; Neutrophils # 12.6 K/mcL (1.6-8.9); Platelet Count 314 K/mcL (140-400); Red Blood Count 4.46 M/mcL (3.82-4.97); Red Cell Distribution Width 15.7 % (11.5-14.5); Segmented Neutrophils % 93.7 %
[2017-07-21 09:12] LABS: Calcium 9.3 mg/dL (8.6-10.3); Potassium 4.3 mEq/L (3.5-5.1)
[2017-07-21] MEDS: Insulin DETEMIR 100 UNIT/ML X5UNITS SQ SCH (21:15)
[2017-07-22] MEDS: *HR* Heparin 5,000 UNIT/ML VIAL SQ SCH ×3 (02:15→15:28)
[2017-07-22] MEDS: MethylPREDNISolone 40 MG/ML VIAL IVP SCH ×2 (02:15→15:28)
[2017-07-22] MEDS: Piperacillin/Tazobactam 3.375 GM in 0.9 % Sodium Chloride Mini Bag 100 ML IVPB SCH ×3 (02:16→17:24)
[2017-07-22 03:54] LABS: Basophils % 0.2 %; Hematocrit 39.7 % (35.3-44.9); Hemoglobin 12.1 g/dL (11.5-15.4); Immature Granulocytes % 1.3 % (0-4); Lymphocytes # 0.7 K/mcL (0.6-4.6); Lymphocytes % 3.7 %; Mean Corpuscular HGB Conc 30.5 g/dL (31.6-35.5); Mean Corpuscular Hemoglobin 27.8 pg (28.0-33.3); Mean Corpuscular Volume 91.1 fL (83.0-100.0); Mean Platelet Volume 9.7 fL (9.4-12.4); Monocytes # 0.9 K/mcL (0.0-1.3); Monocytes % 4.4 %; Neutrophils # 17.5 K/mcL (1.6-8.9); Platelet Count 338 K/mcL (140-400); Red Blood Count 4.36 M/mcL (3.82-4.97); Red Cell Distribution Width 15.3 % (11.5-14.5); Segmented Neutrophils % 90.4 %
[2017-07-22] MEDS: Ipratropium/Albuterol Neb 3 ML IH SCH ×4 (04:07→21:09)
[2017-07-22 04:14] LABS: Calcium 9.6 mg/dL (8.6-10.3); Potassium 4.2 mEq/L (3.5-5.1)
[2017-07-22] MEDS: Levothyroxine 25 MCG TABLET PO SCH (05:48)
[2017-07-22] MEDS ORDERED: MethylPREDNISolone 40 MG/ML VIAL IVP SCH (08:00)
[2017-07-22] MEDS ORDERED: Perflutren Lipid Microsphere 1.3 ML in 0.9 % Sodium Chloride 8.7 ML IVP ONE (08:41)
[2017-07-22] MEDS: Insulin LISPRO 300 UNITS/3 ML VIAL SQ SCH ×6 (09:46→17:25)
[2017-07-22] MEDS: Folic Acid 1 MG TABLET PO SCH (09:47)
[2017-07-22] MEDS: FLUoxetine 20 MG CAPSULE PO SCH (09:47)
[2017-07-22] MEDS: diazePAM 5 MG TABLET PO SCH (09:47)
[2017-07-22] MEDS: Anastrozole 1 MG TABLET PO SCH (09:47)
[2017-07-22] MEDS: Gabapentin 300 MG CAPSULE PO SCH ×2 (09:47→15:28)
[2017-07-22] MEDS: Aspirin Enteric Coated 325 MG Tablet PO SCH (09:47)
[2017-07-22] MEDS: Nicotine 21 MG PATCH.TD24 TD SCH (09:48)
[2017-07-22] MEDS: Magnesium Oxide 400 MG TABLET PO SCH (09:48)
[2017-07-22] MEDS: Furosemide 40 MG TABLET PO SCH ×2 (09:48→17:24)
[2017-07-22] MEDS: Fluticasone Propionate Nasal 50 MCG/SPRAY BOTTLE NS SCH (09:49)
[2017-07-22] MEDS: Budesonide/Formoterol 160/4.5 MDI IH SCH ×2 (10:33→21:08)
[2017-07-22] MEDS: Tiotropium 18 MCG inhalation IH SCH (10:33)
--- NOTE | 2017-07-22 10:53 | Internal Med Progress Note ---
Date of Encounter: 07/22/17 Time of Encounter: 10:35 - Subjective Interval history: Interval changes: 07/18/2017: Breathing comfortably Antibiotics and steroids deescalated yesterday in anticipation of discharge today. Her BG was >400 causing her to be held another day. Found eating pork rhines and cheetos throughout the day complicating BG mgt and delaying her discharge. She was ready to be discharged today but despite several adjustments to her her insulin regimen she continues to eat bags of junk food brought in by family. 07/19/18: Desaturation over night Discharge delayed do above 07/20/2017: O2 requirement has increased in the past 24-36 hrs On 14 L HF-O2 off BiPAP She was improving and steroids and antibiotics were deescalated over past two days. Increase steroids and restart Vanc and Zosyn. Asking for Xanax but already taking Valium 5mg TID Angry that she isn't being discharged despite very high O2 demand 07/21/2017: In bedside chair with HF-NC at 14 L/min Feels good quill reamer MD called to see her last night and CXR ordered No PTX,obvious infiltrate noted. Atelectasis and small pleural effusion noted 07/22/2017: O2 requirement still very high (15 Assessment and plan Acute hypoxemic respiratory failure -Secondary to COPD and PNA -Reprotedly had past (+) MRSA sputum cx -Respiratory panel completely negative -Clinically improved -Continue Duo Nebs -Solu Medrol changed to Prednisone -Bipap as needed -Retest sputum culture (unable to provide specimen) -Because of worsening respiratory status SoluMedrol, Vanc and Zosyn restarted. -CTA-Chest ordered to r/o PE -Echo ordered -Reconsulted Pulmonary Medicine -Reescalated therapy yesterday COPD (chronic obstructive pulmonary disease) Plan as above Acute kidney injury Resolving Cr 1.31 and eGFR 50 Baseline difficult to assess in the past 3 months has ranged from 0.7-2.14 Continue to avoid nephrotoxic medications Type 2 diabetes mellitus Complicated by steroid use Increased levemir to 60 units QHS Sliding scale Humalog with meals 15 units Humalog scheduled with meals Non compliance with diabetic diet BG improved but now that High dose steroids restarted BG levels increased Adjusting Insulin accordingly Hx of breast Cancer: -F/u appt in August Hx of prior VTE: -IVC filter DVT prophylaxis 5,000 units BID - Constitutional Vitals: Temp Pulse Resp BP Pulse Ox 97.5 F L 76 17 157/75 93 07/22/17 07:33 07/22/17 07:33 07/22/17 10:35 07/22/17 07:33 07/22/17 10:35 General appearance: Present: cooperative, A&O X 3, morbidly obese, pleasant, no acute distress, answers questions appropriately - Head Head exam: Present: atraumatic, normocephalic - Eye Eye exam: Present: EOMI, PERRL, conjuntiva pink, sclera anicteric Pupils: Present: PERRL - Neck Neck exam general surgery: Present: supple, trachea midline. Absent: lymphadenopathy, thyromegaly - Respiratory Respiratory exam: Present: CTAB. Absent: accessory muscle use, rales, rhonchi, wheezes - Cardiovascular Cardiovascular exam: Present: RRR, +S1, +S2. Absent: diastolic murmur, gallop, rubs, systolic murmur - GI/Abdominal GI/Abdominal exam: Present: normal bowel sounds, soft, no peritoneal signs. Absent: distended, tenderness - Extremities Exam Extremities exam: Present: pedal edema, warm. Absent: calf tenderness, cyanotic - Neurological Exam Neurological exam: Present: CN II-XII intact, oriented X3, no focal deficits. Absent: pronater drift, facial droop, speech deficit - Skin Skin exam: Present: dry, intact Internal Medicine: Result - Labs CBC & Chem 7: 07/22/17 03:43 07/22/17 03:43 Labs: Short CBC 07/22/17 Range/Units 03:43 WBC 19.3 H (4.3-11.1) K/mcL Hgb 12.1 (11.5-15.4) g/dL Hct 39.7 (35.3-44.9) % Plt Count 338 (140-400) K/mcL Neutrophils # 17.5 H (1.6-8.9) K/mcL BMP 07/22/17 03:43 Sodium 137 Potassium 4.2 Chloride 99 Carbon Dioxide 32 H BUN 51 H Creatinine 1.44 H Glucose 152 H Calcium 9.6 - ABG Interpretation ABG results: ABG ABG pH 7.34 pH Units (7.32-7.45) 07/13/17 06:37 ABG pCO2 58 mmHg (35-45) H 07/13/17 06:37 ABG pO2 86 mmHg (85-104) 07/13/17 06:37 ABG O2 Saturation 96 % (95-98) 07/13/17 06:37 - Impressions Impressions Chest CTA 07/21/17 15:12 IMPRESSION: Motion limited study. No central or proximal segmental pulmonary embolus. Right middle lobe and left lower lobe opacities are nonspecific and may represent atelectasis versus pneumonia. D/ / 07/21/2017 17:40:00 [facility] Marc [facility] Interpreting Provider: Lonny Marc MD Consult Discharge Plan - Plan Referrals: Giselle Rhoades MD [Primary Care Provider] - (pcp has been requested)
--- NOTE | 2017-07-22 13:16 | Pulmonology Progress Note ---
Date of Encounter: 07/22/17 Time of Encounter: 12:00 Assessment and Plan (1) Pneumonia Current Visit: No Status: Suspected Patient has worsening of her oxygenation and I have reviewed CT chest results with the patient and also with primary team with increased WBC and worsening hypoxia I suspect there might be pneumonia and its unclear whether this is a continuation of the same process or this is a new type of pneumonia. Agree with broad-spectrum antibiotic and infectious disease consultation. Patient is high risk for any invasive procedure such as bronchoscopy. Qualifiers: Pneumonia type: due to unspecified organism Laterality: left Lung location: lower lobe of lung Qualified Code(s): J18.1 - Lobar pneumonia, unspecified organism (2) Atelectasis of both lungs Current Visit: No Status: Suspected I have encouraged the patient to continue with noninvasive ventilation and also incentive spirometry since this could be a reason for her hypoxia. (3) COPD (chronic obstructive pulmonary disease) Current Visit: Yes Status: Chronic Continue bronchodilators and they doubt this is an exacerbation and discussed with primary team to lower systemic steroid. Patient is asking when she can go home and I have explained to her about her condition and it will not be safe to discharge her at this time. Qualifiers: COPD type: emphysema Emphysema type: unspecified Qualified Code(s): J43.9 - Emphysema, unspecified Subjective Principal diagnosis: acute on chronic respiratory failure Interval history: Patient is asking when she can go home. She is asking for food otherwise she denies any significant changes in her breathing. Objective PUL Vital signs: Last Vital Signs Temp 97.9 F 07/22/17 11:56 Pulse 72 07/22/17 11:56 Resp 16 07/22/17 11:56 BP 170/73 07/22/17 11:56 Pulse Ox 82 07/22/17 11:56 General appearance: no acute distress Eyes: nonicteric ENT: oropharynx dry Neck: supple Effort: mildly labored Auscultation: right: rhonchi, bilateral: diminished breath sounds Percussion: bilateral: not dull Cardiovascular: regular rate and rhythm Gastrointestinal: normoactive bowel sounds Extremities: cyanosis, edema normal mental status, non-focal exam depressed Results - Laboratory Findings CBC and BMP: 07/22/17 03:43 07/22/17 03:43 ABG ABG pH 7.34 pH Units (7.32-7.45) 07/13/17 06:37 ABG pCO2 58 mmHg (35-45) H 07/13/17 06:37 ABG pO2 86 mmHg (85-104) 07/13/17 06:37 ABG O2 Saturation 96 % (95-98) 07/13/17 06:37 Abnormal lab findings: Abnormal lab results WBC 19.3 K/mcL (4.3-11.1) H 07/22/17 03:43 MCH 27.8 pg (28.0-33.3) L 07/22/17 03:43 MCHC 30.5 g/dL (31.6-35.5) L 07/22/17 03:43 RDW 15.3 % (11.5-14.5) H 07/22/17 03:43 Neutrophils # 17.5 K/mcL (1.6-8.9) H 07/22/17 03:43 Nucleated RBCs/100 WBC 0.3 /100 WBC (0) H 07/15/17 05:25 ABG pCO2 58 mmHg (35-45) H 07/13/17 06:37 ABG HCO3 32 mEq/L (21-27) H 07/13/17 06:37 ABG Total CO2 33 mEq/L (20-26) H 07/13/17 06:37 ABG Base Excess 4 mEq/L (-2 to 3) H 07/13/17 06:37 Carbon Dioxide 32 mEq/L (23-29) H 07/22/17 03:43 BUN 51 mg/dL (8-23) H 07/22/17 03:43 Creatinine 1.44 mg/dL (0.60-1.20) H 07/22/17 03:43 Est GFR ( Amer) 45 (> 60) L 07/22/17 03:43 Est GFR (Non-Af Amer) 37 (> 60) L 07/22/17 03:43 BUN/Creatinine Ratio 35 (6-26) H 07/22/17 03:43 Glucose 152 mg/dL (70-105) H 07/22/17 03:43 POC Glucose 294 (58-89) H 07/22/17 02:52 Hemoglobin A1c 9.3 % (-5.6) H 07/12/17 14:44 Calculated Osmolality 301 (280-300) H 07/22/17 03:43 B-Natriuretic Peptide 207 pg/mL (Less than 100) H 07/12/17 16:14 Vancomycin Trough 38.9 mcg/mL (10-20) H* 07/22/17 03:43 Mycoplasma pneumon IgG 0.51 U/L (<=0.09) H 07/14/17 18:36 - Diagnostic Findings CT scan - chest: report reviewed, image reviewed - Clinical Findings Intake & Output: Intake & Output 07/21/17 07/22/17 07/22/17 23:59 07:59 15:59 Intake Total 700 / 700 200 / 200 Output Total 750 / 750 800 / 800 Balance -50 / -50 -600 / -600 Weight 138.9 kg Consult Discharge Plan - Plan Referrals: Giselle Rhoades MD [Primary Care Provider] - (pcp has been requested)
--- NOTE | 2017-07-22 13:40 | Infectious Disease Consult ---
Date of Encounter: 07/22/17 Time of Encounter: 13:35 Assessment and Plan (1) Acute respiratory failure with hypoxia and hypercapnia Status: Acute Assessment and plan: Patient with known oxygen-dependent COPD, previous radiation therapy for breast cancer admitted to [facility] on 07/11/2017 with worsening of respiratory failure suspected to be a COPD exacerbation. Was transferred to [facility] due to requiring BiPAP and potential risk of further respiratory decompensation over the weekend without respiratory coverage. She demonstrated improvement in her respiration status with decrease in oxygen demand while being treated for COPD exacerbation suspected community- acquired pneumonia on broad-spectrum antibiotics. Antibiotics were weaned off where she only remained on Levaquin and respiratory status again decompensated to requiring BiPAP to maintain oxygen saturations greater than 90% currently. - CTA of the chest demonstrates opacification in left lower lobe concerning for atelectasis versus pneumonia. No pulmonary embolism was identified. - Patient is followed by pulmonology but unable to undergo bronchoscopy due to high risk patient for procedure. - Patient has a history of MRSA pneumonia April 2017, unable to obtain sputum cultures since admission. - Currently on vancomycin, Zosyn for broad-spectrum coverage. - She is also receiving 40 mg IV Solu-Medrol every 8 hours scheduled and bronchodilators for COPD exacerbation. Significant laboratory results: WBC 19.3, neutrophil count 17.5, sodium 137, potassium 4.2, bicarbonate 32, BUN 51, creatinine 1.44, GFR of 37, glucose 152 (2) Leucocytosis Status: Acute Assessment and plan: Patient initially presented on July 11 with a WBC of 17 to [facility] and was admitted for treatment of COPD exacerbation. The WBC count raised to 20 and patient was placed on broad-spectrum antibiotics for treatment of potential pneumonia which decreased to 12.6 on July 20. Then increased to 19.3 after worsening arrest 3 status and increase in steroid dose. - Leukocytosis is primarily neutrophilic with current neutrophil count 17.5 - Possible underlying pneumonia but also elevated in the setting of IV steroid use and respiratory decompensation. Qualifiers: Leukocytosis type: unspecified Qualified Code(s): D72.829 - Elevated white blood cell count, unspecified (3) Acute renal failure superimposed on stage 3 chronic kidney disease Status: Acute Assessment and plan: 62yo female with known CKD stage III admitted with acute on chronic respirations failure demonstrating acute kidney injury which is likely multifactorial. Concerning factors: - Currently on broad-spectrum antibiotics including vancomycin and Zosyn - Acute respiratory failure requiring BiPAP - IV steroids - Recent contrast dye load for CTA on 07/21/2017 Creatinine clearance 61 Vancomycin trough 38.9, pharmacy managing just antibiotics with goal trough 15. - Continue to monitor renal function daily - Avoid nephrotoxic medications and renally dose antibiotics Qualifiers: Acute renal failure type: unspecified Qualified Code(s): N17.9 - Acute kidney failure, unspecified; N18.3 - Chronic kidney disease, stage 3 (moderate) ; N18.3 - Chronic kidney disease, stage 3 (moderate) Infectious Disease HPI - Data of Consult Patient: new to practice Consult date: 07/22/17 Requesting Physician: Bette Gee MD Primary Care Provider: Giselle Rhoades, - Consult Narrative Reason for consult: Failure of treatment for COPD and PNA History of present illness: Ms. Yang is a 62 year old female Presented to [place] emergency department on 07/11/2017 with shortness of breath. At that time she was found to be hypoxic with an oxygen saturation of 79%. Prior to presentation she was recently treated with oral Levaquin for right lower lobe pneumonia and then had 2 days of coughing with productive sputum and worsening shortness of breath. She also admits to failure to wear her BiPAP for several weeks due to frequent nocturia. After she was admitted she required BiPAP due to somnolence. Antibiotic coverage including vancomycin with a recent history of MRSA in her sputum from 04/25/2017. She was transferred from [facility] due to lack of respiratory coverage over the weekend and patient required BiPAP with risk of requiring intubation. Vitals at the time of admission: Temperature 96.6, heart rate 92, respiratory rate 18, blood pressure 126/64, oxygen saturation 79% baseline oxygen. Significant initial labs: WBC 17.1, hemoglobin 12.2, hematocrit 37.8, platelets 331, sodium 134, potassium 4.0, chloride 94, carbon dioxide 35, BUN 15, creatinine 1.08, GFR 52, BNP 124 AB.38, 65, 68, bicarbonate 37, oxygen saturation 92% [facility]: Patient was admitted to the ICU at [facility] due to her respiratory decompensation requiring BiPAP to maintain oxygen saturations very than 90%. There is suspicion that her acute on chronic respiratory failure was likely secondary to COPD exacerbation that she was placed on empiric antibiotic agents for community acquired pneumonia including Zosyn and Levaquin and treated for COPD exacerbation with Symbicort, albuterol, DuoNebs and IV Solu- Medrol. Chest x-ray performed upon admission to [facility] demonstrated mild interstitial edema with small to moderate left pleural effusion. Repeat chest x-ray 07/14 found scattered opacities in the right lung greatest at the right lung base similar to the previous imaging. CTA was originally considered but initial evaluation demonstrated low probability for PE and hence was not completed. Respiration status continued to improve and patient went from requiring BiPAP to 4 L nasal cannula oxygen 07/18. Patient was continued on Levaquin and vancomycin and Zosyn were discontinued. She demonstrated oxygen desaturation on 07/19/2017. Her steroids were increased and she was restarted on vancomycin and Zosyn. Repeat chest x-ray demonstrated left basilar atelectasis with possible small left pleural effusion not significantly changed from previous chest x-ray. Oxygen requirements continued to increase WBC count trended back up from 12.6-19.3 after the initiation of steroids. Chest CTA was performed on 07/21/2017 which demonstrated right middle lobe and left lower lobe opacities nonspecific and may represent atelectasis versus pneumonia. Patient demonstrated worsening arrest 3 status and high suspicion for pneumonia but unstable and high risk for invasive procedures such as bronchoscopy and infectious diseases consult was placed due to failing treatment for pneumonia and COPD. Upon evaluation of Ms. Yang today she denies any difficulty with breathing , fevers, chills, diaphoresis, nausea, vomiting, chest pain, palpitations, dyspnea at this time, abdominal pains, diarrhea. She denies any skin infections , wounds or ulcers. She does admit to mild coughing with occasional yellow sputum production and chronic constipation. Overall she feels that her respiratory status is worsening despite she is not demonstrating increase shortness of breath. CC: Bette Gee MD Past Med Surg Social Fam HX - Past Medical History Medical history: arthritis, asthma, cancer, COPD, coronary artery disease, CVA, diabetes, GERD, hyperlipidemia, hypertension, pulmonary embolus, renal disease, thyroid disease, TIA, other Psychiatric history: anxiety, depression - Past Surgical History Surgical History: breast surgery, orthopedic, other, other - Social History Smoking Status: Current every day smoker Smokeless Tobacco Status: No Alcohol use: none Drug use: none - Family History Sister Living Status: Hx Family Respiratory Disorders: Yes (copd) Brother Living Status: Still Living Hx Family Neurologic Disorders: Yes (seizure) Mother Living Status: Hx Family Cardiac Disorders: Yes Hx Family Respiratory Disorders: Yes (emphysema) Hx Family Cancer: Yes (uterine cancer) Father Living Status: Hx Family Cardiac Disorders: Yes (mi, htn) Infectious Disease-CN:Meds Folic Acid 1 mg PO DAILY 05/23/15 [History] Levothyroxine [Synthroid] 25 mcg PO DAILY 05/23/15 [History] Montelukast [Singulair] 10 mg PO DAILY 10/25/15 [History] Oxygen 3 l IH AD 10/25/15 [History] FLUoxetine HCl [Fluoxetine HCl] 40 mg PO DAILY 05/21/16 [History] Insulin Glargine,Hum.rec.anlog [Lantus Solostar] 40 unit SQ HS #1 06/17/16 [Rx] Fluticasone Propionate Nasal [Flonase] 2 spr NS PRN PRN 01/09/17 [History] Carvedilol [Coreg] 6.25 mg PO BID 03/28/17 [History] Polyethylene Glycol 3350 [MiraLAX Powder Bulk 17.9 Oz] 1 scoop PO DAILY #510 gm 03/28/17 [Rx] Metoclopramide [Reglan] 5 mg PO QIDAC #120 tablet 04/19/17 [Rx] Gabapentin [Neurontin] 300 mg PO TID #90 capsule 04/26/17 [Rx] Anastrozole [Arimidex] 1 mg PO DAILY 06/04/17 [History] Aspirin [Ecotrin] 325 mg PO DAILY 07/11/17 [History] Cholecalciferol (Vitamin D3) [Vitamin D3] 1 cap PO QWEEK 07/11/17 [History] Fluticasone/Vilanterol [Breo Ellipta 200-25 Mcg INH] 1 puff IH DAILY 07/11/17 [ History] Ipratropium/Albuterol Sulfate [Combivent Respimat Inhal [place]arte] 4 gm IH QID 07/11 [History] Magnesium Oxide [Mgo] 400 mg PO BID 07/11/17 [History] Sennosides/Docusate Sodium [Senna-S Tablet] 1 each PO BID PRN 07/11/17 [History] Simvastatin [Zocor] 20 mg PO HS 07/11/17 [History] hydrOXYzine HCl [Hydroxyzine HCl] 25 mg PO TID PRN 07/11/17 [History] Albuterol Neb [Proventil Neb] 2.5 mg IH Q2H PRN inhsol 07/12/17 [Rx] Furosemide [Lasix] 80 mg PO BID 07/12/17 [History] Insulin LISPRO [HumaLOG] 0 units SQ Q6HR vial 07/12/17 [Rx] Ipratropium/Albuterol Neb [Duoneb] 3 ml IH [id number] inhsol 07/12/17 [Rx] Losartan [Cozaar] 25 mg PO DAILY 07/12/17 [History] Omeprazole [PriLOSEC] 20 mg PO DAILY 07/12/17 [History] Spironolactone [Aldactone] 25 mg PO BID 07/12/17 [History] diazePAM [Valium] 5 mg PO TID 07/12/17 [History] 3 Allergy/AdvReac Type Severity Reaction Status Date / Time acetaminophen [From Tylenol] Allergy Hives Verified 05/24/17 22:37 ibuprofen AdvReac Nausea Verified 05/24/17 22:37 NSAIDS (Non-Steroidal AdvReac Nausea Verified 05/24/17 22:37 Anti-Inflamma - Constitutional Constitutional: Absent: chills, excessive sweating, fatigue, fever(s), headache( s), lethargy - EENT Nose, mouth and throat: Absent: dizziness, dysphagia, sore throat - Cardiovascular Cardiovascular: Present: dyspnea. Absent: diaphoresis, irregular heart rhythm, rapid heart rate, slow heart rate - Respiratory Respiratory: Present: cough, dyspnea, change in phlegm color - Gastrointestinal Gastrointestinal: Present: constipation. Absent: abdominal pain, diarrhea, dyspepsia - Neurological Neurological: Absent: dizziness, headache(s) Exam - Constitutional Vitals: Temp Pulse Resp BP Pulse Ox 97.9 F 72 16 170/73 82 07/22/17 11:56 07/22/17 11:56 07/22/17 11:56 07/22/17 11:56 07/22/17 11:56 General appearance: cooperative, mild distress (On BiPAP), morbidly obese - Head Head exam: Present: atraumatic, normocephalic - Eye Eye exam: Present: EOMI, PERRL - ENT ENT exam: Present: mucous membranes moist - Respiratory Respiratory exam: Present: decreased breath sounds, wheezes Additional comments: Crackles appreciated left lower lung base, diffuse wheezing all of the lung cross. Tachypnea not appreciated - Cardiovascular Cardiovascular exam: Present: RRR, +S1, +S2 - GI/Abdominal GI/Abdominal exam: Present: normal bowel sounds, soft - Extremities Exam Extremities exam: Present: normal inspection (Bruise over the left anterior delgado ) - Neurological Exam Neurological exam: Present: alert Infectious Disease CN: Results - Labs CBC & Chem 7: 07/22/17 03:43 07/22/17 03:43 Cultures: Cultures 07/12/17 15:59 Blood Culture - Final Peripheral Venipuncture No growth. 07/12/17 15:59 Blood Culture - Final Peripheral Venipuncture No growth. 07/14/17 18:20 Legionella Antigen - Final Urine,Clean Catch Streptococcus pneumoniae Antigen (M - Final Serology: Serology 07/14/17 07/14/17 07/12/17 Range/Units 18:36 15:00 16:18 Chlamy pneumoniae PCR Not Detected Not Detected (Not Detect) Adenovirus (PCR) Not Detected Not Detected (Not Detect) B. pertussis DNA (PCR) Not Detected Not Detected (Not Detect) B.parapertussis DNA PCR Not Detected Not Detected (Not Detect) Coronavirus OC43 (PCR) Not Detected Not Detected (Not Detect) Coronavirus HKU1 (PCR) Not Detected Not Detected (Not Detect) Coronavirus 229E (PCR) Not Detected Not Detected (Not Detect) Coronavirus NL63 (PCR) Not Detected Not Detected (Not Detect) Human Metapneumovir PCR Not Detected Not Detected (Not Detect) Influenza A (H1) PCR Not Detected Not Detected (Not Detect) Influ A (H1N1/09) PCR Not Detected Not Detected (Not Detect) Influenza A (H3) PCR Not Detected Not Detected (Not Detect) Influenza A Untype (PCR) Not Detected Not Detected (Not Detect) Influenza Type B (PCR) Not Detected Not Detected (Not Detect) Mycoplasma pneumon IgG 0.51 H (<=0.09) U/L Mycoplasma pneumon IgM 0.05 (<=0.76) U/L M.pneumoniae DNA (PCR) Not Detected Not Detected (Not Detect) Parainfluenza 1 (PCR) Not Detected Not Detected (Not Detect) Parainfluenza 2 (PCR) Not Detected Not Detected (Not Detect) Parainfluenza 3 (PCR) Not Detected Not Detected (Not Detect) Parainfluenza 4 (PCR) Not Detected Not Detected (Not Detect) RSV (PCR) Not Detected Not Detected (Not Detect) Entero/Rhino (PCR) Not Detected Not Detected (Not Detect) Consult Discharge Plan - Plan Referrals: Giselle Rhoades MD [Primary Care Provider] - (pcp has been requested) - Attending Attestation I examined this patient and my medical decision-making was reviewed with the Resident Physician. I agree with the documented findings, disposition and treatment plan as described except to the extent set forth below. This is an addendum to original report dictated by resident physician. Please refer to residents note for full details. Patient is a 62 year old woman with past medical history mentioned below including diabetes mellitus type 2 who was admitted to [facility] on 2017 as a transfer from [facility] for shortness of breath and acute rest or failure requiring constant BiPAP, we are consult at on July 22 for pneumonia and COPD with patient failing treatment. Briefly, patient is a 62-year-old woman who initially presented to [place] emergency department on July 11 for evaluation of dyspnea. Apparently at home patient was hypoxic with a pulse oximeter of 79%. Patient does have baseline COPD and requires continuous home O2 with the BiPAP at night. In the last 2 days prior to admission patient was having productive cough which is worse than her baseline. Apparently she had no fevers chills nausea vomiting chest pain or palpitations. Patient was admitted to [place] inpatient for acute exacerbation of COPD and possible right lower lobe pneumonia. Patient was started on levofloxacin and vancomycin. Patient continued to do worse clinically with worsening hypoxia and was transferred to [place] ICU for further evaluation. Since admission, patient has been afebrile, heart rate within normal limit, and presenting WBC of 19.7 thousand with 95% neutrophils. Patient also had elevated glucose and A1c of 9.3. A pro calcitonin was ordered on July 14 any came back less than 0.07. A respiratory infectious panel was performed and no viral or bacterial element was detected on PCR. Urine legionella and pneumococcal antigen were both negative. Blood culture was also no growth. Chest x-ray initially revealed mild interstitial edema with small to moderate left pleural effusion. A CT chest done on July 21 which was read as motion limited study. No central or proximal segmental pulmonary embolus. Right middle lobe and left lower lobe opacities are nonspecific and may represent atelectasis versus pneumonia. Patient was initially started on Zosyn and levofloxacin from July 13 through July 20. Levofloxacin was DCd and Zosyn was discontinued and vancomycin was added on July 20. Currently patient continues to be afebrile, heart rate is still within normal limit. She is awake alert and oriented. Patient denies any cough or sputum production. She continues to require Bipap. Denies any chest pain, no shortness of breath, no cough, no sputum production , no diarrhea. If anything, she is constipated. Patients WBCs at 13.4 with 94 % neutrophils, creatinine of 1.3. CT yesterday noted. At this point, her clinical picture is really not impressive for a pneumonia like picture. I think it's warranted to treat at this time while more work up is done. The fact the procalcitonin is negative makes pneumonia less likely. goal vanc trough around 10 and zosyn at this time might deescalate antibiotics in the next few days.
[2017-07-22] MEDS: ALPRAZolam 0.5 MG TABLET PO SCH (15:27)
[2017-07-23] MEDS: Insulin LISPRO 300 UNITS/3 ML VIAL SQ SCH ×8 (00:32→23:56)
[2017-07-23] MEDS: Magnesium Oxide 400 MG TABLET PO SCH ×3 (00:35→23:56)
[2017-07-23] MEDS: Insulin DETEMIR 100 UNIT/ML X5UNITS SQ SCH ×2 (00:35→23:56)
[2017-07-23] MEDS: ALPRAZolam 0.5 MG TABLET PO SCH ×4 (00:35→23:57)
[2017-07-23] MEDS: Gabapentin 300 MG CAPSULE PO SCH ×4 (00:35→23:57)
[2017-07-23] MEDS: *HR* Heparin 5,000 UNIT/ML VIAL SQ SCH ×4 (00:37→23:58)
[2017-07-23] MEDS: MethylPREDNISolone 40 MG/ML VIAL IVP SCH ×4 (00:37→23:58)
[2017-07-23] MEDS: Piperacillin/Tazobactam 3.375 GM in 0.9 % Sodium Chloride Mini Bag 100 ML IVPB SCH ×3 (03:11→18:27)
[2017-07-23] MEDS: Ipratropium/Albuterol Neb 3 ML IH SCH ×4 (03:50→22:06)
[2017-07-23] MEDS: Levothyroxine 25 MCG TABLET PO SCH (05:48)
[2017-07-23 06:11] LABS: Basophils % 0.1 %; Hematocrit 37.2 % (35.3-44.9); Hemoglobin 11.2 g/dL (11.5-15.4); Immature Granulocytes % 1.7 % (0-4); Lymphocytes # 0.5 K/mcL (0.6-4.6); Lymphocytes % 2.4 %; Mean Corpuscular HGB Conc 30.1 g/dL (31.6-35.5); Mean Corpuscular Hemoglobin 27.5 pg (28.0-33.3); Mean Corpuscular Volume 91.4 fL (83.0-100.0); Mean Platelet Volume 9.7 fL (9.4-12.4); Monocytes # 0.7 K/mcL (0.0-1.3); Monocytes % 3.1 %; Neutrophils # 19.4 K/mcL (1.6-8.9); Platelet Count 368 K/mcL (140-400); Red Blood Count 4.07 M/mcL (3.82-4.97); Red Cell Distribution Width 15.5 % (11.5-14.5); Segmented Neutrophils % 92.7 %
[2017-07-23 06:24] LABS: Calcium 9.3 mg/dL (8.6-10.3); Potassium 4.6 mEq/L (3.5-5.1)
--- NOTE | 2017-07-23 07:22 | Infectious Disease Progress No ---
Date of Encounter: 07/23/17 Time of Encounter: 07:22 - Assessment and Plan (1) Acute respiratory failure with hypoxia and hypercapnia Current Visit: No Status: Acute Patient with known oxygen-dependent COPD, previous radiation therapy for breast cancer admitted to [facility] on 07/11/2017 with worsening of respiratory failure suspected to be a COPD exacerbation. Was transferred to [facility] due to requiring BiPAP and potential risk of further respiratory decompensation over the weekend without respiratory coverage. She demonstrated improvement in her respiration status with decrease in oxygen demand while being treated for COPD exacerbation suspected community- acquired pneumonia on broad-spectrum antibiotics. - Currently patient continues to be afebrile, heart rate is still within normal limit. She is awake alert and oriented. Patient denies any cough or sputum production. She continues to require Bipap. - A pro calcitonin was ordered on July 14 any came back less than 0.07. A respiratory infectious panel was performed and no viral or bacterial element was detected on PCR. Urine legionella and pneumococcal antigen were both negative. Blood culture was also no growth. - CTA of the chest demonstrates opacification in left lower lobe concerning for atelectasis versus pneumonia. No pulmonary embolism was identified. - Patient is followed by pulmonology but unable to undergo bronchoscopy due to high risk patient for procedure. - Patient has a history of MRSA pneumonia April 2017, unable to obtain sputum cultures since admission. - Currently on vancomycin, Zosyn for broad-spectrum coverage. Continue at this time with Vanc trough goal of 10 - She is also receiving 40 mg IV Solu-Medrol every 8 hours scheduled and bronchodilators for COPD exacerbation. At this current time her clinical picture is still not impressive for pneumonia like picture. With her last pro calcitonin negative, it makes the diagnosis of pneumonia less likely. She will most likely benefit from continued evaluation for other causes for her respiratory decompensation. Depending on clinical picture we may de-escalate antibiotics over the next few days. (2) Leucocytosis Current Visit: No Status: Acute WBC of 21 thousand, neutrophil predominant. Leukocytosis in the setting of respiratory decompensation and high-dose IV steroids. Slightly elevated compared to yesterday yet demonstrate upward trending with recent IV steroid addition. Clinically the patient does not appear further decompensated compared to yesterday. - Continue considering other causes outside of infection - Monitor with daily CBC. Qualifiers: Leukocytosis type: unspecified Qualified Code(s): D72.829 - Elevated white blood cell count, unspecified (3) Acute renal failure superimposed on stage 3 chronic kidney disease Current Visit: Yes Status: Acute 62yo female with known CKD stage III admitted with acute on chronic respirations failure demonstrating acute kidney injury which is likely multifactorial. Slow down trend in elevation of creatinine and upward trend in GFR. Concerning factors: - Currently on broad-spectrum antibiotics including vancomycin and Zosyn - Acute respiratory failure requiring BiPAP - IV steroids - Recent contrast dye load for CTA on 07/21/2017 Creatinine clearance 61 Vancomycin Random 19.7, pharmacy managing just antibiotics with goal trough 15. - Continue to monitor renal function daily - Avoid nephrotoxic medications and renally dose antibiotics Qualifiers: Acute renal failure type: unspecified Qualified Code(s): N17.9 - Acute kidney failure, unspecified; N18.3 - Chronic kidney disease, stage 3 (moderate) ; N18.3 - Chronic kidney disease, stage 3 (moderate) - Subjective Interval history: Ms. Yang seen and evaluated patient bedside this morning. She is alert awake interactive in no acute distress. She is tolerating her BiPAP and denies any fevers, chills, diaphoresis, chest pain, worsening of her respirator status , abdominal pains, nausea vomiting diarrhea constipation or muscle aches or pains. She is hopeful to have her BiPAP removed, no further questions at this time. Infect Dis PN-Objective Data - Labs CBC & Chem 7: 07/23/17 05:33 07/23/17 05:33 Labs: Laboratory Results - last 24 hr 07/22/17 07/22/17 07/22/17 02:52 12:00 16:30 WBC RBC Hgb Hct MCV MCH MCHC RDW Plt Count MPV Immature Gran % Seg Neutrophils % Lymphocytes % Monocytes % Eosinophils % Basophils % Neutrophils # Lymphocytes # Monocytes # Eosinophils # Basophils # Sodium Potassium Chloride Carbon Dioxide BUN Creatinine Est GFR ( Amer) Est GFR (Non-Af Amer) BUN/Creatinine Ratio Glucose POC Glucose 294 H 300 H Calculated Osmolality Calcium Random Vancomycin 26.8 07/22/17 07/22/17 07/22/17 16:35 19:01 23:49 WBC RBC Hgb Hct MCV MCH MCHC RDW Plt Count MPV Immature Gran % Seg Neutrophils % Lymphocytes % Monocytes % Eosinophils % Basophils % Neutrophils # Lymphocytes # Monocytes # Eosinophils # Basophils # Sodium Potassium Chloride Carbon Dioxide BUN Creatinine Est GFR ( Amer) Est GFR (Non-Af Amer) BUN/Creatinine Ratio Glucose POC Glucose 139 H 120 H 199 H Calculated Osmolality Calcium Random Vancomycin 07/23/17 07/23/17 07/23/17 05:33 05:33 05:33 WBC 21.0 H RBC 4.07 Hgb 11.2 L Hct 37.2 MCV 91.4 MCH 27.5 L MCHC 30.1 L RDW 15.5 H Plt Count 368 MPV 9.7 Immature Gran % 1.7 Seg Neutrophils % 92.7 Lymphocytes % 2.4 Monocytes % 3.1 Eosinophils % 0.0 Basophils % 0.1 Neutrophils # 19.4 H Lymphocytes # 0.5 L Monocytes # 0.7 Eosinophils # 0.0 Basophils # 0.0 Sodium 140 Potassium 4.6 Chloride 100 Carbon Dioxide 33 H BUN 56 H Creatinine 1.25 H Est GFR ( Amer) 53 L Est GFR (Non-Af Amer) 44 L BUN/Creatinine Ratio 45 H Glucose 275 H POC Glucose Calculated Osmolality 315 H Calcium 9.3 Random Vancomycin 19.7 Cultures: Cultures 07/12/17 15:59 Blood Culture - Final Peripheral Venipuncture No growth. 07/12/17 15:59 Blood Culture - Final Peripheral Venipuncture No growth. 07/14/17 18:20 Legionella Antigen - Final Urine,Clean Catch Streptococcus pneumoniae Antigen (M - Final Serology 07/14/17 07/14/17 07/12/17 Range/Units 18:36 15:00 16:18 Chlamy pneumoniae PCR Not Detected Not Detected (Not Detect) Adenovirus (PCR) Not Detected Not Detected (Not Detect) B. pertussis DNA (PCR) Not Detected Not Detected (Not Detect) B.parapertussis DNA PCR Not Detected Not Detected (Not Detect) Coronavirus OC43 (PCR) Not Detected Not Detected (Not Detect) Coronavirus HKU1 (PCR) Not Detected Not Detected (Not Detect) Coronavirus 229E (PCR) Not Detected Not Detected (Not Detect) Coronavirus NL63 (PCR) Not Detected Not Detected (Not Detect) Human Metapneumovir PCR Not Detected Not Detected (Not Detect) Influenza A (H1) PCR Not Detected Not Detected (Not Detect) Influ A (H1N1/09) PCR Not Detected Not Detected (Not Detect) Influenza A (H3) PCR Not Detected Not Detected (Not Detect) Influenza A Untype (PCR) Not Detected Not Detected (Not Detect) Influenza Type B (PCR) Not Detected Not Detected (Not Detect) Mycoplasma pneumon IgG 0.51 H (<=0.09) U/L Mycoplasma pneumon IgM 0.05 (<=0.76) U/L M.pneumoniae DNA (PCR) Not Detected Not Detected (Not Detect) Parainfluenza 1 (PCR) Not Detected Not Detected (Not Detect) Parainfluenza 2 (PCR) Not Detected Not Detected (Not Detect) Parainfluenza 3 (PCR) Not Detected Not Detected (Not Detect) Parainfluenza 4 (PCR) Not Detected Not Detected (Not Detect) RSV (PCR) Not Detected Not Detected (Not Detect) Entero/Rhino (PCR) Not Detected Not Detected (Not Detect) - Impressions Impressions Echocardiogram 07/22/17 08:52 Impressions: Technically challenging study due to body habitus. LVEF 55%. Visualized with use of Definity. Mild left ventricular diastolic dysfunction. RV is not well visualized. Mild aortic regurgitation. Suboptimal TR signal to estimate RVSP. IVC is normal in size and collapse. Left Ventricular Wall Motion: Rest Echo Findings The mid anterior septal and mid inferior lateral tucker were not visualized. All other wall segments showed normal motion. Findings: Study Quality * Technically challenging study due to body habitus. ECG Findings * Normal sinus rhythm. Left Ventricle * LVEF 55%. * Mild left ventricular diastolic dysfunction. * Definity echo contrast was used. * LV size appears normal. LV wall thickness measurements not well obtained. Right Ventricle * RV is not well visualized. Left Atrium * Normal left atrial size. Right Atrium * Right atrium is not well visualized. Aortic Valve * Aortic valve not well visualized. * Mild aortic regurgitation. * Incomplete Doppler assessment - no LVOT. Mitral Valve * No mitral regurgitation. * Mitral valve not well visualized. * No mitral stenosis. Tricuspid Valve * Tricuspid valve not well visualized. * Trace tricuspid regurgitation. * Estimated RA pressure is 3 mmHg. Pulmonic Valve * Pulmonic valve is not well visualized. * No pulmonic stenosis. * No pulmonic regurgitation. Pulmonary Artery * Pulmonary artery not well visualized. Aorta * Not well visualized. Pericardium * There is no pericardial effusion present. Interatrial Septum * Interatrial septum not well evaluated. IVC * Normal IVC dimensions and inspiratory collapse. Exam - Constitutional Vitals: Temp Pulse Resp BP Pulse Ox 97.8 F 76 18 138/89 91 07/23/17 05:51 07/23/17 05:51 07/23/17 05:51 07/23/17 05:51 07/23/17 05:51 - Head Head exam: Present: atraumatic, normocephalic - ENT ENT exam: Present: mucous membranes dry Additional comments: Patient tolerating BiPAP - Respiratory Respiratory exam: Present: decreased breath sounds, wheezes - Cardiovascular Cardiovascular exam: Present: RRR, +S1, +S2 - GI/Abdominal GI/Abdominal exam: Present: normal bowel sounds, soft - Extremities Exam Extremities exam: Present: normal inspection Consult Discharge Plan - Plan Referrals: Giselle Rhoades MD [Primary Care Provider] - (pcp has been requested) - Attending Attestation I examined this patient and my medical decision-making was reviewed with the Resident Physician. I agree with the documented findings, disposition and treatment plan as described except to the extent set forth below. if continues to improve, will consider swithing to oral option (bactrim/omincef? )
[2017-07-23] MEDS: Furosemide 40 MG TABLET PO SCH ×2 (08:09→16:40)
[2017-07-23] MEDS: Folic Acid 1 MG TABLET PO SCH (08:09)
[2017-07-23] MEDS: Anastrozole 1 MG TABLET PO SCH (08:09)
[2017-07-23] MEDS: Aspirin Enteric Coated 325 MG Tablet PO SCH (08:09)
[2017-07-23] MEDS: FLUoxetine 20 MG CAPSULE PO SCH (08:10)
[2017-07-23] MEDS: Nicotine 21 MG PATCH.TD24 TD SCH (08:10)
[2017-07-23] MEDS: Fluticasone Propionate Nasal 50 MCG/SPRAY BOTTLE NS SCH (08:11)
[2017-07-23] MEDS: Tiotropium 18 MCG inhalation IH SCH (10:42)
[2017-07-23] MEDS: Budesonide/Formoterol 160/4.5 MDI IH SCH ×2 (10:43→22:07)
--- NOTE | 2017-07-23 21:25 | Internal Med Progress Note ---
Date of Encounter: 07/23/17 Time of Encounter: 21:23 - Assessment and plan (1) Acute respiratory failure with hypoxia and hypercapnia Current Visit: Yes Status: Acute Assessment and plan: Somewhat improved. O2 requirement seems to be slowly decreasing, but still high requirement. She wants to go home; but counselled on O2 need and consequences. ID and pulmonology consulted; appreciate input. ID not thinking pneumonia. Continue IV vancomycin and IV zosyn for now; will deescalate per ID recommendations. Pulmonology thinking still pneumonia; will await updated recommendations. Continue solumedrol and nebulizer treatments. Continue to wean O2 per RT. (2) Leucocytosis Current Visit: Yes Status: Acute Assessment and plan: Trending up. Covering for pneumonia as per above. Recheck CBC in AM. Qualifiers: Leukocytosis type: unspecified Qualified Code(s): D72.829 - Elevated white blood cell count, unspecified (3) Acute renal failure superimposed on stage 3 chronic kidney disease Current Visit: Yes Status: Acute Assessment and plan: Improving. Cr = 1.25. Baseline difficult to assess in the past 3 months has ranged from 0.7-2.14. Continue to avoid nephrotoxic medications. Recheck BMP in AM. Qualifiers: Acute renal failure type: unspecified Qualified Code(s): N17.9 - Acute kidney failure, unspecified; N18.3 - Chronic kidney disease, stage 3 (moderate) ; N18.3 - Chronic kidney disease, stage 3 (moderate) (4) COPD (chronic obstructive pulmonary disease) Current Visit: Yes Status: Acute Assessment and plan: Management as per above. Qualifiers: COPD type: emphysema Emphysema type: unspecified Qualified Code(s): J43.9 - Emphysema, unspecified (5) Type 2 diabetes mellitus Current Visit: Yes Status: Chronic Assessment and plan: Complicated by steroid use and poor diet. Somewhat improved. Continue accuchecks and current insulin regimen with SSI. Will monitor and adjust insulin accordingly. 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 - Time Spent With Patient 25 - 35 minutes - Subjective Interval history: Patient had no acute events overnight. She states that she feels "great." She denies any SOB. Still on high flow requiring up to 12L. She is adamant about going home; but I advised her about her O2 requirement. She denies fever or chills. She denies chest pain. She has no new complaints. - Constitutional Vitals: Temp Pulse Resp BP Pulse Ox 98.4 F 88 18 150/83 91 07/23/17 15:33 07/23/17 15:33 07/23/17 15:37 07/23/17 15:33 07/23/17 15:37 General appearance: Present: cooperative, A&O X 3, morbidly obese, pleasant, no acute distress, answers questions appropriately - Respiratory Respiratory exam: Present: CTAB. Absent: accessory muscle use, rales, rhonchi, wheezes Additional comments: Normal WOB - Cardiovascular Cardiovascular exam: Present: RRR, +S1, +S2. Absent: diastolic murmur, gallop, rubs, systolic murmur Additional comments: Moderate BLE edema - GI/Abdominal GI/Abdominal exam: Present: normal bowel sounds, soft. Absent: distended, hepatomegaly, mass, splenomegaly, tenderness - Psychiatric Psychiatric exam: Present: normal affect, normal mood. Absent: anxious, depressed - Skin Skin exam: Present: dry, intact, warm. Absent: cyanosis, rash Internal Medicine: Result - Labs CBC & Chem 7: 07/23/17 05:33 07/23/17 05:33 Labs: Short CBC 07/23/17 Range/Units 05:33 WBC 21.0 H (4.3-11.1) K/mcL Hgb 11.2 L (11.5-15.4) g/dL Hct 37.2 (35.3-44.9) % Plt Count 368 (140-400) K/mcL Neutrophils # 19.4 H (1.6-8.9) K/mcL BMP 07/23/17 05:33 Sodium 140 Potassium 4.6 Chloride 100 Carbon Dioxide 33 H BUN 56 H Creatinine 1.25 H Glucose 275 H Calcium 9.3 - ABG Interpretation ABG results: ABG ABG pH 7.34 pH Units (7.32-7.45) 07/13/17 06:37 ABG pCO2 58 mmHg (35-45) H 07/13/17 06:37 ABG pO2 86 mmHg (85-104) 07/13/17 06:37 ABG O2 Saturation 96 % (95-98) 07/13/17 06:37 Consult Discharge Plan - Plan Referrals: Giselle Rhoades MD [Primary Care Provider] - (pcp has been requested)
[2017-07-24] MEDS: Ipratropium/Albuterol Neb 3 ML IH SCH ×4 (03:29→22:32)
[2017-07-24 04:39] LABS: Basophils % 0.2 %; Hematocrit 34.9 % (35.3-44.9); Hemoglobin 10.5 g/dL (11.5-15.4); Immature Granulocytes % 2.2 % (0-4); Lymphocytes # 0.6 K/mcL (0.6-4.6); Mean Corpuscular HGB Conc 30.1 g/dL (31.6-35.5); Mean Corpuscular Hemoglobin 27.3 pg (28.0-33.3); Mean Corpuscular Volume 90.6 fL (83.0-100.0); Mean Platelet Volume 9.8 fL (9.4-12.4); Monocytes # 0.6 K/mcL (0.0-1.3); Platelet Count 336 K/mcL (140-400); Red Blood Count 3.85 M/mcL (3.82-4.97); Red Cell Distribution Width 15.5 % (11.5-14.5); Segmented Neutrophils % 91.6 %
[2017-07-24 04:56] LABS: Calcium 9.2 mg/dL (8.6-10.3); Potassium 4.6 mEq/L (3.5-5.1)
[2017-07-24] MEDS: Piperacillin/Tazobactam 3.375 GM in 0.9 % Sodium Chloride Mini Bag 100 ML IVPB SCH ×3 (05:54→17:34)
[2017-07-24] MEDS: Levothyroxine 25 MCG TABLET PO SCH (05:55)
[2017-07-24] MEDS: Aspirin Enteric Coated 325 MG Tablet PO SCH (08:58)
[2017-07-24] MEDS: FLUoxetine 20 MG CAPSULE PO SCH (08:59)
[2017-07-24] MEDS: Furosemide 40 MG TABLET PO SCH ×2 (09:00→17:30)
[2017-07-24] MEDS: Magnesium Oxide 400 MG TABLET PO SCH ×2 (09:00→21:18)
[2017-07-24] MEDS: Gabapentin 300 MG CAPSULE PO SCH ×3 (09:00→21:18)
[2017-07-24] MEDS: ALPRAZolam 0.5 MG TABLET PO SCH ×3 (09:00→22:59)
[2017-07-24] MEDS: Folic Acid 1 MG TABLET PO SCH (09:00)
[2017-07-24] MEDS: Anastrozole 1 MG TABLET PO SCH (09:00)
[2017-07-24] MEDS: Nicotine 21 MG PATCH.TD24 TD SCH (09:00)
[2017-07-24] MEDS: *HR* Heparin 5,000 UNIT/ML VIAL SQ SCH ×2 (09:01→17:32)
[2017-07-24] MEDS: MethylPREDNISolone 40 MG/ML VIAL IVP SCH ×2 (09:01→17:32)
[2017-07-24] MEDS: Fluticasone Propionate Nasal 50 MCG/SPRAY BOTTLE NS SCH (09:04)
[2017-07-24] MEDS: Insulin LISPRO 300 UNITS/3 ML VIAL SQ SCH ×7 (09:06→21:20)
[2017-07-24] MEDS: Budesonide/Formoterol 160/4.5 MDI IH SCH ×2 (10:17→22:32)
[2017-07-24] MEDS: Tiotropium 18 MCG inhalation IH SCH (10:19)
--- NOTE | 2017-07-24 10:22 | Infectious Disease Progress No ---
Date of Encounter: 07/24/17 Time of Encounter: 09:00 - Assessment and Plan (1) Acute respiratory failure with hypoxia and hypercapnia Current Visit: Yes Status: Acute Patient with known oxygen-dependent COPD, previous radiation therapy for breast cancer admitted to [facility] on 07/11/2017 with worsening of respiratory failure suspected to be a COPD exacerbation. Was transferred to [facility] due to requiring BiPAP and potential risk of further respiratory decompensation over the weekend without respiratory coverage. She demonstrated improvement in her respiration status with decrease in oxygen demand while being treated for COPD exacerbation suspected community- acquired pneumonia on broad-spectrum antibiotics. - Currently patient continues to be afebrile, heart rate is still within normal limit. She is awake alert and oriented. Patient denies any cough or sputum production. She continues to require Bipap. - A pro calcitonin was ordered on July 14 any came back less than 0.07. A respiratory infectious panel was performed and no viral or bacterial element was detected on PCR. Urine legionella and pneumococcal antigen were both negative. Blood culture was also no growth. - CTA of the chest demonstrates opacification in left lower lobe concerning for atelectasis versus pneumonia. No pulmonary embolism was identified. - Patient is followed by pulmonology but unable to undergo bronchoscopy due to high risk patient for procedure. - Patient has a history of MRSA pneumonia April 2017, unable to obtain sputum cultures since admission. - Currently on vancomycin, Zosyn for broad-spectrum coverage. Continue at this time with Vanc trough goal of 10 - She is also receiving 40 mg IV Solu-Medrol every 8 hours scheduled and bronchodilators for COPD exacerbation. At this current time her clinical picture is still not impressive for pneumonia like picture. With her last pro calcitonin negative, it makes the diagnosis of pneumonia less likely. She will most likely benefit from continued evaluation for other causes for her respiratory decompensation. Depending on clinical picture we may de-escalate antibiotics over the next few days. 07/24: Patient no longer on BiPAP tolerating high flow nasal cannula oxygen. No change in clinical pulmonary examination. Clinical picture is still not impressive for pneumonia and she should continue to have evaluation for other causes of her respiratory decompensation. De-escalate antibiotics: (2) Leucocytosis Current Visit: Yes Status: Acute WBC of 18.5, mild improvement from 21 yesterday. Clinical exam unchanged, patient continues to be on methylprednisone 40 mg every 6 hours. - Continue considering other causes outside of infection - Monitor with daily CBC. Qualifiers: Leukocytosis type: unspecified Qualified Code(s): D72.829 - Elevated white blood cell count, unspecified (3) Acute renal failure superimposed on stage 3 chronic kidney disease Current Visit: Yes Status: Acute 62yo female with known CKD stage III admitted with acute on chronic respirations failure demonstrating acute kidney injury which is likely multifactorial. 07/24, renal function has improved. Continue to monitor with daily labs. Concerning risk factors: - Currently on broad-spectrum antibiotics including vancomycin and Zosyn, plans to de-escalate. - Acute respiratory failure requiring high flow nasal cane oxygen. - IV steroids - Recent contrast dye load for CTA on 07/21/2017 Creatinine clearance 90 Vancomycin Random 11.5, pharmacy managing just antibiotics with goal trough 15. - Continue to monitor renal function daily - Avoid nephrotoxic medications and renally dose antibiotics Qualifiers: Acute renal failure type: unspecified Qualified Code(s): N17.9 - Acute kidney failure, unspecified; N18.3 - Chronic kidney disease, stage 3 (moderate) ; N18.3 - Chronic kidney disease, stage 3 (moderate) - Subjective Interval history: Ms. Yang seen and evaluated patient bedside this morning. She is alert awake interactive in no acute distress. She has been on nasal cannula high flow oxygen overnight and wean down to 11 L nasal cannula high flow maintaining oxygen saturations around 88%. She feels back to her normal self past to be discharged home and states that this is how she feels on a daily basis. She denies any fevers, chills, nausea vomiting diarrhea constipation, sputum production or cough at this time. She denies any other concerning symptoms or concerns. Infect Dis PN-Objective Data - Labs CBC & Chem 7: 07/24/17 04:08 07/24/17 04:08 Labs: Laboratory Results - last 24 hr 07/23/17 07/23/17 07/23/17 07:48 11:15 16:13 WBC RBC Hgb Hct MCV MCH MCHC RDW Plt Count MPV Immature Gran % Seg Neutrophils % Lymphocytes % Monocytes % Eosinophils % Basophils % Neutrophils # Lymphocytes # Monocytes # Eosinophils # Basophils # Sodium Potassium Chloride Carbon Dioxide BUN Creatinine Est GFR ( Amer) Est GFR (Non-Af Amer) BUN/Creatinine Ratio Glucose POC Glucose 331 H 292 H 176 H Calculated Osmolality Calcium Random Vancomycin 07/23/17 07/24/17 07/24/17 21:35 04:08 04:08 WBC 18.5 H RBC 3.85 Hgb 10.5 L Hct 34.9 L MCV 90.6 MCH 27.3 L MCHC 30.1 L RDW 15.5 H Plt Count 336 MPV 9.8 Immature Gran % 2.2 Seg Neutrophils % 91.6 Lymphocytes % 3.0 Monocytes % 3.0 Eosinophils % 0.0 Basophils % 0.2 Neutrophils # 17.0 H Lymphocytes # 0.6 Monocytes # 0.6 Eosinophils # 0.0 Basophils # 0.0 Sodium 140 Potassium 4.6 Chloride 98 Carbon Dioxide 35 H BUN 54 H Creatinine 1.17 Est GFR ( Amer) 57 L Est GFR (Non-Af Amer) 47 L BUN/Creatinine Ratio 46 H Glucose 260 H POC Glucose 161 H Calculated Osmolality 314 H Calcium 9.2 Random Vancomycin 07/24/17 04:08 WBC RBC Hgb Hct MCV MCH MCHC RDW Plt Count MPV Immature Gran % Seg Neutrophils % Lymphocytes % Monocytes % Eosinophils % Basophils % Neutrophils # Lymphocytes # Monocytes # Eosinophils # Basophils # Sodium Potassium Chloride Carbon Dioxide BUN Creatinine Est GFR ( Amer) Est GFR (Non-Af Amer) BUN/Creatinine Ratio Glucose POC Glucose Calculated Osmolality Calcium Random Vancomycin 11.5 Cultures: Cultures 07/12/17 15:59 Blood Culture - Final Peripheral Venipuncture No growth. 07/12/17 15:59 Blood Culture - Final Peripheral Venipuncture No growth. 07/14/17 18:20 Legionella Antigen - Final Urine,Clean Catch Streptococcus pneumoniae Antigen (M - Final Serology 07/14/17 07/14/17 07/12/17 Range/Units 18:36 15:00 16:18 Chlamy pneumoniae PCR Not Detected Not Detected (Not Detect) Adenovirus (PCR) Not Detected Not Detected (Not Detect) B. pertussis DNA (PCR) Not Detected Not Detected (Not Detect) B.parapertussis DNA PCR Not Detected Not Detected (Not Detect) Coronavirus OC43 (PCR) Not Detected Not Detected (Not Detect) Coronavirus HKU1 (PCR) Not Detected Not Detected (Not Detect) Coronavirus 229E (PCR) Not Detected Not Detected (Not Detect) Coronavirus NL63 (PCR) Not Detected Not Detected (Not Detect) Human Metapneumovir PCR Not Detected Not Detected (Not Detect) Influenza A (H1) PCR Not Detected Not Detected (Not Detect) Influ A (H1N1/09) PCR Not Detected Not Detected (Not Detect) Influenza A (H3) PCR Not Detected Not Detected (Not Detect) Influenza A Untype (PCR) Not Detected Not Detected (Not Detect) Influenza Type B (PCR) Not Detected Not Detected (Not Detect) Mycoplasma pneumon IgG 0.51 H (<=0.09) U/L Mycoplasma pneumon IgM 0.05 (<=0.76) U/L M.pneumoniae DNA (PCR) Not Detected Not Detected (Not Detect) Parainfluenza 1 (PCR) Not Detected Not Detected (Not Detect) Parainfluenza 2 (PCR) Not Detected Not Detected (Not Detect) Parainfluenza 3 (PCR) Not Detected Not Detected (Not Detect) Parainfluenza 4 (PCR) Not Detected Not Detected (Not Detect) RSV (PCR) Not Detected Not Detected (Not Detect) Entero/Rhino (PCR) Not Detected Not Detected (Not Detect) Exam - Constitutional Vitals: Temp Pulse Resp BP Pulse Ox 97.8 F 76 18 155/92 96 07/24/17 06:53 07/24/17 06:53 07/24/17 06:53 07/24/17 06:53 07/24/17 06:53 - Head Head exam: Present: atraumatic, normocephalic - ENT ENT exam: Present: mucous membranes moist - Neck Neck exam: Present: normal inspection - Respiratory Respiratory exam: Present: decreased breath sounds, wheezes (Diffusely) - Cardiovascular Cardiovascular exam: Present: RRR, +S1, +S2 - GI/Abdominal GI/Abdominal exam: Present: normal bowel sounds, soft - Extremities Exam Extremities exam: Present: normal inspection - Neurological Exam Neurological exam: Present: no focal deficits Consult Discharge Plan - Plan Referrals: Giselle Rhoades MD [Primary Care Provider] - (pcp has been requested) - Attending Attestation I examined this patient and my medical decision-making was reviewed with the Resident Physician. I agree with the documented findings, disposition and treatment plan as described except to the extent set forth below. d/w the pulmonary team may switch to oral antibiotics to finish a 10 day course once clinically stable prognosis overall guarded
[2017-07-24] MEDS ORDERED: Vancomycin 500 MG in 0.9 % Sodium Chloride Mini Bag 100 ML IVPB ONE (16:01)
[2017-07-24] MEDS: Insulin DETEMIR 100 UNIT/ML X5UNITS SQ SCH (21:19)
[2017-07-24] MEDS: hydrOXYzine pamoate 25 MG CAPSULE PO PRN (22:51)
--- NOTE | 2017-07-24 23:24 | Internal Med Progress Note ---
Date of Encounter: 07/24/17 Time of Encounter: 23:22 - Assessment and plan (1) Acute respiratory failure with hypoxia and hypercapnia Current Visit: Yes Status: Acute Assessment and plan: Improving. O2 requirement seems to be slowly decreasing, but still high requirement. She wants to go home; but counselled on O2 need and consequences. ID and pulmonology consulted; appreciate input. ID not thinking pneumonia. Continue IV vancomycin and IV zosyn for now; will deescalate per ID recommendations. Pulmonology thinking still pneumonia; will await updated recommendations. Continue solumedrol and nebulizer treatments. Continue to wean O2 per RT. (2) Leucocytosis Current Visit: Yes Status: Acute Assessment and plan: Improved today. Covering for pneumonia as per above. Recheck CBC in AM. Qualifiers: Leukocytosis type: unspecified Qualified Code(s): D72.829 - Elevated white blood cell count, unspecified (3) Acute renal failure superimposed on stage 3 chronic kidney disease Current Visit: Yes Status: Acute Assessment and plan: Improving. Cr = 1.17. Baseline difficult to assess in the past 3 months has ranged from 0.7-2.14. Continue to avoid nephrotoxic medications. Recheck BMP in AM. Qualifiers: Acute renal failure type: unspecified Qualified Code(s): N17.9 - Acute kidney failure, unspecified; N18.3 - Chronic kidney disease, stage 3 (moderate) ; N18.3 - Chronic kidney disease, stage 3 (moderate) (4) COPD (chronic obstructive pulmonary disease) Current Visit: Yes Status: Acute Assessment and plan: Management as per above. Qualifiers: COPD type: emphysema Emphysema type: unspecified Qualified Code(s): J43.9 - Emphysema, unspecified (5) Type 2 diabetes mellitus Current Visit: Yes Status: Chronic Assessment and plan: Complicated by steroid use and poor diet. Somewhat improved. Continue accuchecks and current insulin regimen with SSI. Will monitor and adjust insulin accordingly. 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 Will increase xanax to 0.75 mg TID. Add vistaril as per below. (7) Hives Current Visit: Yes Status: Acute Assessment and plan: Secondary to anxiety per patient. Address anxiety as per above. Add vistaril for PRN itching. (8) DVT prophylaxis Current Visit: Yes Status: Acute Assessment and plan: Continue heparin. - Time Spent With Patient less than 15 minutes - Subjective Interval history: Patient had no acute events overnight. She states that she feels "perfect." She denies any SOB. Still on high flow NC but down to 7-8 L. She is adamant about going home; but I advised her about her O2 requirement. She is having some increased anxiety due to being in hospital and wants to see if xanax can be increased to 0.75. She also has hives on abdomen due to anxiety; this has happened in the past to her. I advised that we can try this, but we have to be careful not to decrease respiratory drive, thus delaying her discharge due to worsening O2 requirements. She denies fever or chills. She denies chest pain. She has no other complaints. - Constitutional Vitals: Temp Pulse Resp BP Pulse Ox 97.8 F 74 18 172/89 95 07/24/17 16:00 07/24/17 16:00 07/24/17 22:32 07/24/17 22:32 07/24/17 23:01 General appearance: Present: cooperative, A&O X 3, morbidly obese, pleasant, no acute distress, answers questions appropriately - Respiratory Respiratory exam: Present: CTAB. Absent: accessory muscle use, rales, rhonchi, wheezes Additional comments: Normal WOB - Cardiovascular Cardiovascular exam: Present: RRR, +S1, +S2. Absent: diastolic murmur, gallop, rubs, systolic murmur Additional comments: Moderate BLE edema - GI/Abdominal GI/Abdominal exam: Present: normal bowel sounds, soft. Absent: distended, hepatomegaly, mass, splenomegaly, tenderness - Psychiatric Psychiatric exam: Present: anxious, normal affect. Absent: agitated, depressed - Skin Skin exam: Present: dry, intact, warm. Absent: cyanosis Additional comments: Small splotches of erythematous urticarial skin changes across abdomen Internal Medicine: Result - Labs CBC & Chem 7: 07/24/17 04:08 07/24/17 04:08 Labs: Short CBC 07/24/17 Range/Units 04:08 WBC 18.5 H (4.3-11.1) K/mcL Hgb 10.5 L (11.5-15.4) g/dL Hct 34.9 L (35.3-44.9) % Plt Count 336 (140-400) K/mcL Neutrophils # 17.0 H (1.6-8.9) K/mcL BMP 07/24/17 04:08 Sodium 140 Potassium 4.6 Chloride 98 Carbon Dioxide 35 H BUN 54 H Creatinine 1.17 Glucose 260 H Calcium 9.2 - ABG Interpretation ABG results: ABG ABG pH 7.34 pH Units (7.32-7.45) 07/13/17 06:37 ABG pCO2 58 mmHg (35-45) H 07/13/17 06:37 ABG pO2 86 mmHg (85-104) 07/13/17 06:37 ABG O2 Saturation 96 % (95-98) 07/13/17 06:37 - Impressions Impressions Chest X-Ray 07/20/17 20:12 IMPRESSION: Left basilar atelectasis with possible small left pleural effusion. D/ / 07/20/2017 21:47:15 Rony Sumner MD / bcarter Interpreting Provider: Rony Sumner MD Consult Discharge Plan - Plan Referrals: Giselle Rhoades MD [Primary Care Provider] - (pcp has been requested)
[2017-07-25] MEDS: Piperacillin/Tazobactam 3.375 GM in 0.9 % Sodium Chloride Mini Bag 100 ML IVPB SCH ×2 (00:47→11:08)
[2017-07-25] MEDS: *HR* Heparin 5,000 UNIT/ML VIAL SQ SCH ×3 (00:47→15:51)
[2017-07-25] MEDS: Ipratropium/Albuterol Neb 3 ML IH SCH ×4 (03:24→22:35)
[2017-07-25] MEDS: MethylPREDNISolone 40 MG/ML VIAL IVP SCH (06:07)
[2017-07-25] MEDS: Levothyroxine 25 MCG TABLET PO SCH (06:07)
[2017-07-25 06:10] LABS: Basophils % 0.1 %; Hematocrit 34.1 % (35.3-44.9); Hemoglobin 10.3 g/dL (11.5-15.4); Immature Granulocytes % 1.8 % (0-4); Lymphocytes # 0.9 K/mcL (0.6-4.6); Lymphocytes % 4.8 %; Mean Corpuscular HGB Conc 30.2 g/dL (31.6-35.5); Mean Corpuscular Hemoglobin 27.1 pg (28.0-33.3); Mean Corpuscular Volume 89.7 fL (83.0-100.0); Mean Platelet Volume 9.9 fL (9.4-12.4); Monocytes # 1.1 K/mcL (0.0-1.3); Monocytes % 6.2 %; Neutrophils # 15.7 K/mcL (1.6-8.9); Platelet Count 309 K/mcL (140-400); Red Cell Distribution Width 15.8 % (11.5-14.5); Segmented Neutrophils % 87.1 %
--- NOTE | 2017-07-25 08:00 | Infectious Disease Progress No ---
Date of Encounter: 07/25/17 Time of Encounter: 07:57 - Assessment and Plan (1) Acute respiratory failure with hypoxia and hypercapnia Current Visit: Yes Status: Acute Patient with known oxygen-dependent COPD, previous radiation therapy for breast cancer admitted to [facility] on 07/11/2017 with worsening of respiratory failure suspected to be a COPD exacerbation. Was transferred to [facility] due to requiring BiPAP and potential risk of further respiratory decompensation over the weekend without respiratory coverage. She demonstrated improvement in her respiration status with decrease in oxygen demand while being treated for COPD exacerbation suspected community- acquired pneumonia on broad-spectrum antibiotics. - Currently patient continues to be afebrile, heart rate is still within normal limit. She is awake alert and oriented. Patient denies any cough or sputum production. She continues to require Bipap. - A pro calcitonin was ordered on July 14 any came back less than 0.07. A respiratory infectious panel was performed and no viral or bacterial element was detected on PCR. Urine legionella and pneumococcal antigen were both negative. Blood culture was also no growth. - CTA of the chest demonstrates opacification in left lower lobe concerning for atelectasis versus pneumonia. No pulmonary embolism was identified. - Patient is followed by pulmonology but unable to undergo bronchoscopy due to high risk patient for procedure. - Patient has a history of MRSA pneumonia April 2017, unable to obtain sputum cultures since admission. - Currently on vancomycin, Zosyn for broad-spectrum coverage. Continue at this time with Vanc trough goal of 10 - She is also receiving 40 mg IV Solu-Medrol every 8 hours scheduled and bronchodilators for COPD exacerbation. At this current time her clinical picture is still not impressive for pneumonia like picture. With her last pro calcitonin negative, it makes the diagnosis of pneumonia less likely. She will most likely benefit from continued evaluation for other causes for her respiratory decompensation. Depending on clinical picture we may de-escalate antibiotics over the next few days. 07/24: Patient no longer on BiPAP tolerating high flow nasal cannula oxygen. No change in clinical pulmonary examination. Clinical picture is still not impressive for pneumonia and she should continue to have evaluation for other causes of her respiratory decompensation. 07/25: Ms. Yang, seen and evaluated with no improvement in her respiratory status. Last evening she was bumped up 2L high flow nasal cannula oxygen to currently at 10 L. Sputum culture from yesterday preliminary negative for abnormal growth. Clinically no change from yesterday. Continue management from primary team and pulmonology. De-escalate antibiotics to Bactrim DS by mouth every 12 hours, ( 5 days since antibiotic restart )Total antibiotic duration of 10 days. (2) Leucocytosis Current Visit: Yes Status: Acute WBC of 18, mild improvement from high of 21. Clinical exam unchanged, patient continues to be on methylprednisone 40 mg every 12 hours. - Continue considering other causes outside of infection - Monitor with daily CBC while inpatient. Qualifiers: Leukocytosis type: unspecified Qualified Code(s): D72.829 - Elevated white blood cell count, unspecified (3) Acute renal failure superimposed on stage 3 chronic kidney disease Current Visit: Yes Status: Acute 62yo female with known CKD stage III admitted with acute on chronic respirations failure demonstrating acute kidney injury which is likely multifactorial. 07/24, renal function has improved. Continue to monitor with daily labs. Concerning risk factors: - Currently on broad-spectrum antibiotics including vancomycin and Zosyn, plans to de-escalate. - Acute respiratory failure requiring high flow nasal cane oxygen. - IV steroids - Recent contrast dye load for CTA on 07/21/2017 Creatinine clearance 90 (07/24) - pharmacy managing just antibiotics with goal trough 15. - Continue to monitor renal function daily - Avoid nephrotoxic medications and renally dose antibiotics Qualifiers: Acute renal failure type: unspecified Qualified Code(s): N17.9 - Acute kidney failure, unspecified; N18.3 - Chronic kidney disease, stage 3 (moderate) ; N18.3 - Chronic kidney disease, stage 3 (moderate) - Subjective Interval history: Ms. Yang seen and evaluated patient bedside this morning. She is alert awake interactive in no acute distress. She has been on high flow oxygen for 24hrs and has had difficulty with weaning past 10 L nasal cannula high flow maintaining oxygen saturations around 88%. She states that she feels fine and should be able to be sent home. She denies any fevers, chills, diaphoresis, sputum production today, chest pain, chest tightness, nausea vomiting diarrhea constipation. She has no further questions for infectious disease. Infect Dis PN-Objective Data - Labs CBC & Chem 7: 07/25/17 05:17 07/25/17 10:42 Labs: Laboratory Results - last 24 hr 07/24/17 07/24/17 07/25/17 06:54 11:56 05:17 WBC 18.0 H RBC 3.80 L Hgb 10.3 L Hct 34.1 L MCV 89.7 MCH 27.1 L MCHC 30.2 L RDW 15.8 H Plt Count 309 MPV 9.9 Immature Gran % 1.8 Seg Neutrophils % 87.1 Lymphocytes % 4.8 Monocytes % 6.2 Eosinophils % 0.0 Basophils % 0.1 Neutrophils # 15.7 H Lymphocytes # 0.9 Monocytes # 1.1 Eosinophils # 0.0 Basophils # 0.0 POC Glucose 266 H 213 H 07/25/17 07/25/17 05:20 07:07 WBC RBC Hgb Hct MCV MCH MCHC RDW Plt Count MPV Immature Gran % Seg Neutrophils % Lymphocytes % Monocytes % Eosinophils % Basophils % Neutrophils # Lymphocytes # Monocytes # Eosinophils # Basophils # POC Glucose 196 H 215 H Cultures: Cultures 07/24/17 12:00 Sputum Culture - Preliminary Sputum 07/12/17 15:59 Blood Culture - Final Peripheral Venipuncture No growth. 07/12/17 15:59 Blood Culture - Final Peripheral Venipuncture No growth. 07/14/17 18:20 Legionella Antigen - Final Urine,Clean Catch Streptococcus pneumoniae Antigen (M - Final Serology 07/14/17 07/14/17 07/12/17 Range/Units 18:36 15:00 16:18 Chlamy pneumoniae PCR Not Detected Not Detected (Not Detect) Adenovirus (PCR) Not Detected Not Detected (Not Detect) B. pertussis DNA (PCR) Not Detected Not Detected (Not Detect) B.parapertussis DNA PCR Not Detected Not Detected (Not Detect) Coronavirus OC43 (PCR) Not Detected Not Detected (Not Detect) Coronavirus HKU1 (PCR) Not Detected Not Detected (Not Detect) Coronavirus 229E (PCR) Not Detected Not Detected (Not Detect) Coronavirus NL63 (PCR) Not Detected Not Detected (Not Detect) Human Metapneumovir PCR Not Detected Not Detected (Not Detect) Influenza A (H1) PCR Not Detected Not Detected (Not Detect) Influ A (H1N1/09) PCR Not Detected Not Detected (Not Detect) Influenza A (H3) PCR Not Detected Not Detected (Not Detect) Influenza A Untype (PCR) Not Detected Not Detected (Not Detect) Influenza Type B (PCR) Not Detected Not Detected (Not Detect) Mycoplasma pneumon IgG 0.51 H (<=0.09) U/L Mycoplasma pneumon IgM 0.05 (<=0.76) U/L M.pneumoniae DNA (PCR) Not Detected Not Detected (Not Detect) Parainfluenza 1 (PCR) Not Detected Not Detected (Not Detect) Parainfluenza 2 (PCR) Not Detected Not Detected (Not Detect) Parainfluenza 3 (PCR) Not Detected Not Detected (Not Detect) Parainfluenza 4 (PCR) Not Detected Not Detected (Not Detect) RSV (PCR) Not Detected Not Detected (Not Detect) Entero/Rhino (PCR) Not Detected Not Detected (Not Detect) - Impressions Impressions Chest X-Ray 07/20/17 20:12 IMPRESSION: Left basilar atelectasis with possible small left pleural effusion. D/ / 07/20/2017 21:47:15 Rony Sumner MD / tyrone Interpreting Provider: Rony Sumner MD Exam - Constitutional Vitals: Temp Pulse Resp BP Pulse Ox 97.7 F 75 18 162/71 93 07/25/17 07:00 07/25/17 07:00 07/25/17 07:00 07/25/17 07:00 07/25/17 07:00 General appearance: obese - Head Head exam: Present: atraumatic, normocephalic - Neck Neck exam: Present: normal inspection - Respiratory Respiratory exam: Present: decreased breath sounds, wheezes - Cardiovascular Cardiovascular exam: Present: RRR, +S2 - GI/Abdominal GI/Abdominal exam: Present: normal bowel sounds, soft - Extremities Exam Extremities exam: Present: normal inspection Consult Discharge Plan - Plan Referrals: Giselle Rhoades MD [Primary Care Provider] - (pcp has been requested) - Attending Attestation I examined this patient and my medical decision-making was reviewed with the Resident Physician. I agree with the documented findings, disposition and treatment plan as described except to the extent set forth below.
[2017-07-25] MEDS: Insulin LISPRO 300 UNITS/3 ML VIAL SQ SCH ×7 (09:15→21:51)
[2017-07-25] MEDS: traMADol 50 MG TABLET PO PRN (09:17)
[2017-07-25] MEDS: Gabapentin 300 MG CAPSULE PO SCH ×3 (09:17→21:51)
[2017-07-25] MEDS: FLUoxetine 20 MG CAPSULE PO SCH (09:17)
[2017-07-25] MEDS: Furosemide 40 MG TABLET PO SCH ×2 (09:18→17:30)
[2017-07-25] MEDS: Folic Acid 1 MG TABLET PO SCH (09:19)
[2017-07-25] MEDS: Aspirin Enteric Coated 325 MG Tablet PO SCH (09:19)
[2017-07-25] MEDS: Magnesium Oxide 400 MG TABLET PO SCH ×2 (09:19→21:50)
[2017-07-25] MEDS: Fluticasone Propionate Nasal 50 MCG/SPRAY BOTTLE NS SCH (09:20)
[2017-07-25] MEDS: Anastrozole 1 MG TABLET PO SCH (09:20)
[2017-07-25] MEDS: Nicotine 21 MG PATCH.TD24 TD SCH (09:21)
[2017-07-25] MEDS: ALPRAZolam 0.5 MG TABLET PO SCH ×3 (09:22→21:51)
[2017-07-25] MEDS: hydrOXYzine pamoate 25 MG CAPSULE PO PRN (09:34)
[2017-07-25 09:37] LABS: Calcium 9.3 mg/dL (8.6-10.3); Potassium 4.4 mEq/L (3.5-5.1)
[2017-07-25 11:23] LABS: BUN/Creatinine Ratio 46 (6-26); Blood Urea Nitrogen 51 mg/dL (8-23); Calcium 9.1 mg/dL (8.6-10.3); Carbon Dioxide 34 mEq/L (23-29); Chloride 98 mEq/L (98-107); Glucose 319 mg/dL (70-105); Osmolality,Calculated 314 (280-300); Potassium 4.6 mEq/L (3.5-5.1); Sodium 139 mEq/L (136-145); eGFR For African Americans > 60 (> 60); eGFR For Non-African Americans 50 (> 60)
[2017-07-25] MEDS: Budesonide/Formoterol 160/4.5 MDI IH SCH ×2 (11:23→22:35)
[2017-07-25] MEDS: Tiotropium 18 MCG inhalation IH SCH (11:28)
--- NOTE | 2017-07-25 11:29 | Pulmonology Progress Note ---
<Rosalind Fuentes M - Last Filed: 07/25/17 13:05> Date of Encounter: 07/25/17 Assessment and Plan (1) Pneumonia Current Visit: No Status: Suspected Qualifiers: Pneumonia type: due to unspecified organism Laterality: left Lung location: lower lobe of lung Qualified Code(s): J18.1 - Lobar pneumonia, unspecified organism (2) Atelectasis of both lungs Current Visit: No Status: Suspected (3) COPD (chronic obstructive pulmonary disease) Current Visit: Yes Status: Acute Qualifiers: COPD type: emphysema Emphysema type: unspecified Qualified Code(s): J43.9 - Emphysema, unspecified Objective PUL Vital signs: Last Vital Signs Temp 97.7 F 07/25/17 07:00 Pulse 75 07/25/17 07:00 Resp 18 07/25/17 11:23 BP 162/71 07/25/17 07:00 Pulse Ox 92 07/25/17 12:44 Results - Laboratory Findings CBC and BMP: 07/25/17 05:17 07/25/17 10:42 ABG ABG pH 7.34 pH Units (7.32-7.45) 07/13/17 06:37 ABG pCO2 58 mmHg (35-45) H 07/13/17 06:37 ABG pO2 86 mmHg (85-104) 07/13/17 06:37 ABG O2 Saturation 96 % (95-98) 07/13/17 06:37 Abnormal lab findings: Abnormal lab results WBC 18.0 K/mcL (4.3-11.1) H 07/25/17 05:17 RBC 3.80 M/mcL (3.82-4.97) L 07/25/17 05:17 Hgb 10.3 g/dL (11.5-15.4) L 07/25/17 05:17 Hct 34.1 % (35.3-44.9) L 07/25/17 05:17 MCH 27.1 pg (28.0-33.3) L 07/25/17 05:17 MCHC 30.2 g/dL (31.6-35.5) L 07/25/17 05:17 RDW 15.8 % (11.5-14.5) H 07/25/17 05:17 Neutrophils # 15.7 K/mcL (1.6-8.9) H 07/25/17 05:17 Nucleated RBCs/100 WBC 0.3 /100 WBC (0) H 07/15/17 05:25 ABG pCO2 58 mmHg (35-45) H 07/13/17 06:37 ABG HCO3 32 mEq/L (21-27) H 07/13/17 06:37 ABG Total CO2 33 mEq/L (20-26) H 07/13/17 06:37 ABG Base Excess 4 mEq/L (-2 to 3) H 07/13/17 06:37 Carbon Dioxide 34 mEq/L (23-29) H 07/25/17 10:42 BUN 51 mg/dL (8-23) H 07/25/17 10:42 Est GFR (Non-Af Amer) 50 (> 60) L 07/25/17 10:42 BUN/Creatinine Ratio 46 (6-26) H 07/25/17 10:42 Glucose 319 mg/dL (70-105) H 07/25/17 10:42 POC Glucose 301 (58-89) H 07/25/17 11:52 Hemoglobin A1c 9.3 % (-5.6) H 07/12/17 14:44 Calculated Osmolality 314 (280-300) H 07/25/17 10:42 B-Natriuretic Peptide 207 pg/mL (Less than 100) H 07/12/17 16:14 Vancomycin Trough 38.9 mcg/mL (10-20) H* 07/22/17 03:43 Mycoplasma pneumon IgG 0.51 U/L (<=0.09) H 07/14/17 18:36 - Microbiology Findings Microbiology Findings: Microbiology, Last 48 Hours 07/24/17 12:00 Sputum Culture - Preliminary Sputum - Clinical Findings Intake & Output: Intake & Output 07/24/17 07/25/17 07/25/17 23:59 07:59 15:59 Intake Total 340 / 340 100 / 100 360 / 360 Output Total 0 / 0 Balance 340 / 340 100 / 100 360 / 360 Consult Discharge Plan - Plan Referrals: Giselle Rhoades MD [Primary Care Provider] - (pcp has been requested) - Attending Attestation I examined this patient and my medical decision-making was reviewed with the Resident Physician. I agree with the documented findings, disposition and treatment plan as described except to the extent set forth below. Patient seen and examined. Labs, radiology, chart personally reviewed. Agree with resident's history and physical, assessment, plan with following comments: LEARNING AND DEVELOPMENT ANALYST: Patient follows commands, Pulmonary: Acceptable oxygenation and ventilation. Discussed with the respiratory therapist apparently she was making progress with weaning off FiO2 and it is worsen again last night. Increase systemic steroid and encourage incentive spirometry as well as bronchodilators. I have been feeling patient's baseline not very good since she is very comfortable when her oxygen saturation in the 80s. Continue noninvasive ventilation and physical therapy. Cardiovascular: Echocardiogram with bubble to check for any shunt that could explain hypoxia. <Lonny Swann - Last Filed: 07/25/17 13:45> Date of Encounter: 07/25/17 Time of Encounter: 10:50 Assessment and Plan (1) Acute respiratory failure with hypoxia and hypercapnia Current Visit: Yes Status: Acute - Arterial blood gas on 07/13 showing respiratory acidosis with hypercarbia and hypoxia - Chest CTA reviewed which shows suspected atelectasis with no acute infiltrate - Acute respiratory failure likely secondary to COPD exacerbation - Completed a course of vancomycin, Zosyn and is now on Bactrim per infectious disease - Currently tolerating 10 L of oxygen via high flow nasal cannula, home oxygen requirement of 4-5 L - White count remains elevated however patient is on intravenous steroids. Wheezing appreciated on auscultation - Difficulty weaning at this time is likely secondary to worsening of chronic medical condition versus deconditioning versus this being her baseline levels Plan - Increase methylprednisone to every 8 hours - Encouraged incentive spirometry, ambulation, sitting up in chair - We will rule out alternative etiologies of shunting with EV echocardiogram with bubble study (2) COPD exacerbation Current Visit: Yes Status: Acute As above for acute respiratory failure (3) Obstructive sleep apnea Current Visit: Yes Status: Chronic Continue BiPAP at night Encouraged weight loss (4) Hypoventilation associated with obesity syndrome Current Visit: Yes Status: Chronic May begin contributing to patient's hypoxia and decreased respiratory status Weight loss was encouraged (5) Morbid obesity with BMI of 45.0-49.9, adult Current Visit: Yes Status: Chronic As above (6) Tobacco use Current Visit: Yes Status: Chronic - Patient states she has a 1 pack per day smoker since age 14 - We did have a extensive discussion today regarding smoking cessation. She states that she is aware she needs to quit and has tried multiple times in the past however she finds it difficult. We did discuss that this is likely the cause of her chronic symptoms for which there is no cure, and she is aware of this and states multiple family members have similar chronic medical conditions secondary to smoking. I did encourage the patient that now would be a opportune time to quit as she has already been without a cigarette since admission. She will consider this and follow up with her primary care physician Subjective Principal diagnosis: acute on chronic respiratory failure Interval history: 62-year-old female with past medical history of COPD, CHF, [id number] history of smoking. Pulmonology was asked to reevaluate the patient due to difficulty weaning to home oxygen requirement. At home, she reports requiring 4-5 L of oxygen via nasal cannula and states that she normally has nausea saturation in the 80s and tolerates this well. She is currently tolerating 10 L of oxygen with oxygen saturation in the upper 90s. She is denying any complaints of shortness of breath at this time. She does admit to a productive cough with thick green sputum but denies fevers, chills, chest pain. She states she has been working with physical therapy regularly, however she is not yet walking with assistance. Objective PUL Vital signs: Last Vital Signs Temp 97.7 F 07/25/17 07:00 Pulse 75 07/25/17 07:00 Resp 18 07/25/17 07:00 BP 162/71 07/25/17 07:00 Pulse Ox 93 07/25/17 07:00 Gen.: Vitals noted. No acute distress. AAOx3. Morbidly obese female lying slouched and diagonal in bed HEENT: PERRL/EOMI, oropharynx clear, Normocephalic, atraumatic Cardiac: RRR, no murmur, +S1/S2 Pulmonary: Moderate wheezes auscultated on left. equal chest expansion Abdomen: soft, nontender, BS noted, no guarding Extremities: Mild BLE edema, nontender calf, no cyanosis or clubbing Neuro: A&Ox3, moves all extremities, no focal deficits Psych: Appropriate mood and behavior Results - Laboratory Findings CBC and BMP: 07/25/17 05:17 07/25/17 10:42 ABG ABG pH 7.34 pH Units (7.32-7.45) 07/13/17 06:37 ABG pCO2 58 mmHg (35-45) H 07/13/17 06:37 ABG pO2 86 mmHg (85-104) 07/13/17 06:37 ABG O2 Saturation 96 % (95-98) 07/13/17 06:37 Abnormal lab findings: Abnormal lab results WBC 18.0 K/mcL (4.3-11.1) H 07/25/17 05:17 RBC 3.80 M/mcL (3.82-4.97) L 07/25/17 05:17 Hgb 10.3 g/dL (11.5-15.4) L 07/25/17 05:17 Hct 34.1 % (35.3-44.9) L 07/25/17 05:17 MCH 27.1 pg (28.0-33.3) L 07/25/17 05:17 MCHC 30.2 g/dL (31.6-35.5) L 07/25/17 05:17 RDW 15.8 % (11.5-14.5) H 07/25/17 05:17 Neutrophils # 15.7 K/mcL (1.6-8.9) H 07/25/17 05:17 Nucleated RBCs/100 WBC 0.3 /100 WBC (0) H 07/15/17 05:25 ABG pCO2 58 mmHg (35-45) H 07/13/17 06:37 ABG HCO3 32 mEq/L (21-27) H 07/13/17 06:37 ABG Total CO2 33 mEq/L (20-26) H 07/13/17 06:37 ABG Base Excess 4 mEq/L (-2 to 3) H 07/13/17 06:37 Carbon Dioxide 34 mEq/L (23-29) H 07/25/17 10:42 BUN 51 mg/dL (8-23) H 07/25/17 10:42 Est GFR (Non-Af Amer) 50 (> 60) L 07/25/17 10:42 BUN/Creatinine Ratio 46 (6-26) H 07/25/17 10:42 Glucose 319 mg/dL (70-105) H 07/25/17 10:42 POC Glucose 215 (58-89) H 07/25/17 07:07 Hemoglobin A1c 9.3 % (-5.6) H 07/12/17 14:44 Calculated Osmolality 314 (280-300) H 07/25/17 10:42 B-Natriuretic Peptide 207 pg/mL (Less than 100) H 07/12/17 16:14 Vancomycin Trough 38.9 mcg/mL (10-20) H* 07/22/17 03:43 Mycoplasma pneumon IgG 0.51 U/L (<=0.09) H 07/14/17 18:36 - Microbiology Findings Microbiology Findings: Microbiology, Last 48 Hours 07/24/17 12:00 Sputum Culture - Preliminary Sputum - Clinical Findings Intake & Output: Intake & Output 07/24/17 07/25/17 07/25/17 23:59 07:59 15:59 Intake Total 340 / 340 100 / 100 360 / 360 Output Total 0 / 0 Balance 340 / 340 100 / 100 360 / 360
[2017-07-25] MEDS ORDERED: Aminoglycoside Consult 1 EACH MC ONE (14:14)
[2017-07-25] MEDS: methylPREDNISolone 125 MG/2 ML VIAL IVP SCH (15:52)
[2017-07-25] MEDS: Sulfamethoxazole/Trimeth DS 1 EACH TABLET PO SCH (21:50)
[2017-07-25] MEDS: Insulin DETEMIR 100 UNIT/ML X5UNITS SQ SCH (21:50)
--- NOTE | 2017-07-25 23:19 | Internal Med Progress Note ---
Date of Encounter: 07/25/17 Time of Encounter: 23:17 - Assessment and plan (1) Acute respiratory failure with hypoxia and hypercapnia Current Visit: Yes Status: Acute Assessment and plan: Improving. O2 requirement seems to be slowly decreasing, but still higher than home 3-4 L by [place]. She wants to go home; but counselled on O2 need and consequences. ID consulted; appreciate input. ID not thinking pneumonia. Will discontinue IV vancomycin and IV zosyn and start PO Bactrim. Pulmonology reconsulted. They have increased steroids to Q8H. Continue nebulizer treatments. Continue to wean O2 per RT. Possible discharge home tomorrow if holds steady at O2 of 3-4 L by [place]. (2) Leucocytosis Current Visit: Yes Status: Acute Assessment and plan: Continues to slowly improve. Covering for pneumonia as per above. Recheck CBC in AM. Qualifiers: Leukocytosis type: unspecified Qualified Code(s): D72.829 - Elevated white blood cell count, unspecified (3) Acute renal failure superimposed on stage 3 chronic kidney disease Current Visit: Yes Status: Chronic Assessment and plan: GUERRERO resolved. At baseline creatinine. Continue to avoid nephrotoxic medications. Qualifiers: Acute renal failure type: unspecified Qualified Code(s): N17.9 - Acute kidney failure, unspecified; N18.3 - Chronic kidney disease, stage 3 (moderate) ; N18.3 - Chronic kidney disease, stage 3 (moderate) (4) COPD (chronic obstructive pulmonary disease) Current Visit: Yes Status: Chronic Assessment and plan: Management as per above. Qualifiers: COPD type: emphysema Emphysema type: unspecified Qualified Code(s): J43.9 - Emphysema, unspecified (5) Type 2 diabetes mellitus Current Visit: Yes Status: Chronic Assessment and plan: Complicated by steroid use and poor diet. Somewhat improved. Continue accuchecks and current insulin regimen with high dose SSI. Increase levemir to 80 units QD and increase TID meal-time lispro to 25 units. Qualifiers: Diabetes mellitus manager long term care insulin use: with manager long term care use Diabetes mellitus complication status: without complication Qualified Code(s): E11.9 - Type 2 diabetes mellitus without complications; Z79.4 - bed bug exterminator (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 of insulin; Z79.4 - bed bug exterminator (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 of insulin; Z79.4 - [facility] ( 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 of insulin; Z79.4 - bed bug exterminator (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 of insulin (6) Anxiety Current Visit: Yes Status: Chronic Assessment and plan: Improved. Continue current xanax dose for now; she is aware that she will not go home with this. Continue vistaril as per below. Continue all other home medications. (7) Hives Current Visit: Yes Status: Acute Assessment and plan: Resolved. Secondary to anxiety per patient. Continue vistaril PRN itching. (8) DVT prophylaxis Current Visit: Yes Status: Acute Assessment and plan: Continue heparin. - Time Spent With Patient less than 15 minutes - Subjective Interval history: Patient had no acute events overnight. She states that she feels good and wants to go home. She denies any SOB. Still on high flow NC but down to 4-6 L today. Anxiety and hives are better. She denies fever or chills. She denies chest pain. She has no other complaints. - Constitutional Vitals: Temp Pulse Resp BP Pulse Ox 98.4 F 82 15 194/87 91 07/25/17 19:31 07/25/17 19:31 07/25/17 22:39 07/25/17 19:31 07/25/17 22:39 General appearance: Present: cooperative, A&O X 3, morbidly obese, pleasant, no acute distress, answers questions appropriately - Respiratory Respiratory exam: Present: CTAB. Absent: accessory muscle use, rales, rhonchi, wheezes Additional comments: Normal WOB - Cardiovascular Cardiovascular exam: Present: RRR, +S1, +S2. Absent: diastolic murmur, gallop, rubs, systolic murmur Additional comments: Moderate BLE edema - GI/Abdominal GI/Abdominal exam: Present: normal bowel sounds, soft. Absent: distended, hepatomegaly, mass, splenomegaly, tenderness - Psychiatric Psychiatric exam: Present: normal affect, normal mood. Absent: anxious, depressed - Skin Skin exam: Present: dry, intact, warm. Absent: cyanosis, rash Internal Medicine: Result - Labs CBC & Chem 7: 07/25/17 05:17 07/25/17 10:42 Labs: Short CBC 07/25/17 Range/Units 05:17 WBC 18.0 H (4.3-11.1) K/mcL Hgb 10.3 L (11.5-15.4) g/dL Hct 34.1 L (35.3-44.9) % Plt Count 309 (140-400) K/mcL Neutrophils # 15.7 H (1.6-8.9) K/mcL BMP 07/25/17 07/25/17 05:17 10:42 Sodium 143 139 Potassium 4.4 4.6 Chloride 100 98 Carbon Dioxide 37 H 34 H BUN 51 H 51 H Creatinine 1.16 1.12 Glucose 187 H 319 H Calcium 9.3 9.1 - ABG Interpretation ABG results: ABG ABG pH 7.34 pH Units (7.32-7.45) 07/13/17 06:37 ABG pCO2 58 mmHg (35-45) H 07/13/17 06:37 ABG pO2 86 mmHg (85-104) 07/13/17 06:37 ABG O2 Saturation 96 % (95-98) 07/13/17 06:37 - VTE Documentation of Mechanical Device: Intermittent pneumatic compression device Consult Discharge Plan - Plan Referrals: Giselle Rhoades MD [Primary Care Provider] - (pcp has been requested)
[2017-07-26] MEDS: methylPREDNISolone 125 MG/2 ML VIAL IVP SCH ×4 (01:13→23:33)
[2017-07-26] MEDS: *HR* Heparin 5,000 UNIT/ML VIAL SQ SCH ×4 (01:13→23:33)
[2017-07-26] MEDS: Ipratropium/Albuterol Neb 3 ML IH SCH ×4 (04:08→22:32)
[2017-07-26 04:09] LABS: Basophils % 0.1 %; Hematocrit 32.9 % (35.3-44.9); Hemoglobin 10.1 g/dL (11.5-15.4); Immature Granulocytes % 2.2 % (0-4); Lymphocytes # 0.5 K/mcL (0.6-4.6); Lymphocytes % 3.3 %; Mean Corpuscular HGB Conc 30.7 g/dL (31.6-35.5); Mean Corpuscular Hemoglobin 27.7 pg (28.0-33.3); Mean Corpuscular Volume 90.1 fL (83.0-100.0); Mean Platelet Volume 9.8 fL (9.4-12.4); Monocytes # 0.4 K/mcL (0.0-1.3); Monocytes % 2.8 %; Nucleated Red Blood Cells 0.1 /100 WBC (0); Platelet Count 273 K/mcL (140-400); Red Blood Count 3.65 M/mcL (3.82-4.97); Red Cell Distribution Width 15.8 % (11.5-14.5); Segmented Neutrophils % 91.6 %
[2017-07-26] MEDS: Levothyroxine 25 MCG TABLET PO SCH (06:22)
[2017-07-26] MEDS: Insulin LISPRO 300 UNITS/3 ML VIAL SQ SCH ×7 (08:12→23:12)
[2017-07-26] MEDS: Nicotine 21 MG PATCH.TD24 TD SCH (08:14)
[2017-07-26] MEDS: Magnesium Oxide 400 MG TABLET PO SCH ×2 (08:19→22:38)
[2017-07-26] MEDS: ALPRAZolam 0.5 MG TABLET PO SCH ×3 (08:19→22:38)
[2017-07-26] MEDS: FLUoxetine 20 MG CAPSULE PO SCH (08:19)
[2017-07-26] MEDS: Folic Acid 1 MG TABLET PO SCH (08:19)
[2017-07-26] MEDS: Furosemide 40 MG TABLET PO SCH ×2 (08:19→17:23)
[2017-07-26] MEDS: Anastrozole 1 MG TABLET PO SCH (08:21)
[2017-07-26] MEDS: Sulfamethoxazole/Trimeth DS 1 EACH TABLET PO SCH ×2 (08:22→22:38)
[2017-07-26] MEDS: Aspirin Enteric Coated 325 MG Tablet PO SCH (08:22)
[2017-07-26] MEDS: Fluticasone Propionate Nasal 50 MCG/SPRAY BOTTLE NS SCH (08:22)
[2017-07-26] MEDS: Gabapentin 300 MG CAPSULE PO SCH ×3 (08:22→22:38)
--- NOTE | 2017-07-26 08:48 | Infectious Disease Progress No ---
Date of Encounter: 07/26/17 Time of Encounter: 08:48 - Assessment and Plan (1) Acute respiratory failure with hypoxia and hypercapnia Current Visit: Yes Status: Acute Patient with known oxygen-dependent COPD, previous radiation therapy for breast cancer admitted to [facility] on 07/11/2017 with worsening of respiratory failure suspected to be a COPD exacerbation. Was transferred to [facility] due to requiring BiPAP and potential risk of further respiratory decompensation over the weekend without respiratory coverage. She demonstrated improvement in her respiration status with decrease in oxygen demand while being treated for COPD exacerbation suspected community- acquired pneumonia on broad-spectrum antibiotics. - Currently patient continues to be afebrile, heart rate is still within normal limit. She is awake alert and oriented. Patient denies any cough or sputum production. She continues to require Bipap. - A pro calcitonin was ordered on July 14 any came back less than 0.07. A respiratory infectious panel was performed and no viral or bacterial element was detected on PCR. Urine legionella and pneumococcal antigen were both negative. Blood culture was also no growth. - CTA of the chest demonstrates opacification in left lower lobe concerning for atelectasis versus pneumonia. No pulmonary embolism was identified. - Patient is followed by pulmonology but unable to undergo bronchoscopy due to high risk patient for procedure. - Patient has a history of MRSA pneumonia April 2017, unable to obtain sputum cultures since admission. - Currently on vancomycin, Zosyn for broad-spectrum coverage. Continue at this time with Vanc trough goal of 10 - She is also receiving 40 mg IV Solu-Medrol every 8 hours scheduled and bronchodilators for COPD exacerbation. At this current time her clinical picture is still not impressive for pneumonia like picture. With her last pro calcitonin negative, it makes the diagnosis of pneumonia less likely. She will most likely benefit from continued evaluation for other causes for her respiratory decompensation. Depending on clinical picture we may de-escalate antibiotics over the next few days. 07/24: Patient no longer on BiPAP tolerating high flow nasal cannula oxygen. No change in clinical pulmonary examination. Clinical picture is still not impressive for pneumonia and she should continue to have evaluation for other causes of her respiratory decompensation. 07/25: Ms. Yang, seen and evaluated with no improvement in her respiratory status. Last evening she was bumped up 2L high flow nasal cannula oxygen to currently at 10 L. Sputum culture from yesterday preliminary negative for abnormal growth. Clinically no change from yesterday. Continue management from primary team and pulmonology. De-escalate antibiotics to Bactrim DS by mouth every 12 hours, ( 5 days since antibiotic restart )Total antibiotic duration of 10 days. 07/26: Patient seen and evaluated, tolerating 4 L nasal cane oxygen maintaining oxygen saturations appropriately. No acute symptoms or changes overnight. Continue management from primary team and pulmonology. Continue Bactrim DS by mouth every 12 hours, ( 6 days since antibiotic restart )Total antibiotic duration of 10 days. (2) Leucocytosis Current Visit: Yes Status: Acute WBC 15 (18 yesterday), improvement from high of 21. Clinical exam unchanged, patient on methylprednisone 80 mg every 8 hours (increased dose) - Continue considering other causes outside of infection - Monitor with daily CBC while inpatient. Qualifiers: Leukocytosis type: unspecified Qualified Code(s): D72.829 - Elevated white blood cell count, unspecified (3) Acute renal failure superimposed on stage 3 chronic kidney disease Current Visit: Yes Status: Chronic 62yo female with known CKD stage III admitted with acute on chronic respirations failure demonstrating acute kidney injury which is likely multifactorial. 07/24, renal function has improved. Continue to monitor with daily labs. Concerning risk factors: - Currently on Bactrim DS BID (De-escalated antibiotics) - Acute respiratory failure requiring high flow nasal cane oxygen. - IV steroids - Recent contrast dye load for CTA on 07/21/2017 Creatinine clearance 90 (07/24) - pharmacy managing just antibiotics with goal trough 15. - Continue to monitor renal function daily - Avoid nephrotoxic medications and renally dose antibiotics Qualifiers: Acute renal failure type: unspecified Qualified Code(s): N17.9 - Acute kidney failure, unspecified; N18.3 - Chronic kidney disease, stage 3 (moderate) ; N18.3 - Chronic kidney disease, stage 3 (moderate) - Subjective Interval history: Ms. Yang seen and evaluated patient bedside this morning. She is alert awake interactive in no acute distress. She again asks to be discharged this morning. She states that her breathing is much better she is tolerating 4 L nasal cannula oxygen. She denies any fevers, chills, diaphoresis, chest pain, shortness of breath, productive cough, abdominal pain nausea vomiting diarrhea constipation. No other concerns for infectious disease at this time. Infect Dis PN-Objective Data - Labs CBC & Chem 7: 07/26/17 03:39 07/25/17 10:42 Labs: Laboratory Results - last 24 hr 07/24/17 07/24/17 07/25/17 16:04 21:15 05:17 WBC RBC Hgb Hct MCV MCH MCHC RDW Plt Count MPV Immature Gran % Seg Neutrophils % Lymphocytes % Monocytes % Eosinophils % Basophils % Neutrophils # Lymphocytes # Monocytes # Eosinophils # Basophils # Nucleated RBCs/100 WBC Sodium 143 Potassium 4.4 Chloride 100 Carbon Dioxide 37 H BUN 51 H Creatinine 1.16 Est GFR ( Amer) 58 L Est GFR (Non-Af Amer) 48 L BUN/Creatinine Ratio 44 H Glucose 187 H POC Glucose 131 H 251 H Calculated Osmolality 315 H Calcium 9.3 07/25/17 07/25/17 07/25/17 10:42 11:52 17:19 WBC RBC Hgb Hct MCV MCH MCHC RDW Plt Count MPV Immature Gran % Seg Neutrophils % Lymphocytes % Monocytes % Eosinophils % Basophils % Neutrophils # Lymphocytes # Monocytes # Eosinophils # Basophils # Nucleated RBCs/100 WBC Sodium 139 Potassium 4.6 Chloride 98 Carbon Dioxide 34 H BUN 51 H Creatinine 1.12 Est GFR ( Amer) > 60 Est GFR (Non-Af Amer) 50 L BUN/Creatinine Ratio 46 H Glucose 319 H POC Glucose 301 H 127 H Calculated Osmolality 314 H Calcium 9.1 07/26/17 07/26/17 03:39 07:55 WBC 15.3 H RBC 3.65 L Hgb 10.1 L Hct 32.9 L MCV 90.1 MCH 27.7 L MCHC 30.7 L RDW 15.8 H Plt Count 273 MPV 9.8 Immature Gran % 2.2 Seg Neutrophils % 91.6 Lymphocytes % 3.3 Monocytes % 2.8 Eosinophils % 0.0 Basophils % 0.1 Neutrophils # 14.0 H Lymphocytes # 0.5 L Monocytes # 0.4 Eosinophils # 0.0 Basophils # 0.0 Nucleated RBCs/100 WBC 0.1 H Sodium Potassium Chloride Carbon Dioxide BUN Creatinine Est GFR ( Amer) Est GFR (Non-Af Amer) BUN/Creatinine Ratio Glucose POC Glucose 253 H Calculated Osmolality Calcium Cultures: Cultures 07/24/17 12:00 Sputum Culture - Preliminary Sputum 07/12/17 15:59 Blood Culture - Final Peripheral Venipuncture No growth. 07/12/17 15:59 Blood Culture - Final Peripheral Venipuncture No growth. 07/14/17 18:20 Legionella Antigen - Final Urine,Clean Catch Streptococcus pneumoniae Antigen (M - Final Serology 07/14/17 07/14/17 07/12/17 Range/Units 18:36 15:00 16:18 Chlamy pneumoniae PCR Not Detected Not Detected (Not Detect) Adenovirus (PCR) Not Detected Not Detected (Not Detect) B. pertussis DNA (PCR) Not Detected Not Detected (Not Detect) B.parapertussis DNA PCR Not Detected Not Detected (Not Detect) Coronavirus OC43 (PCR) Not Detected Not Detected (Not Detect) Coronavirus HKU1 (PCR) Not Detected Not Detected (Not Detect) Coronavirus 229E (PCR) Not Detected Not Detected (Not Detect) Coronavirus NL63 (PCR) Not Detected Not Detected (Not Detect) Human Metapneumovir PCR Not Detected Not Detected (Not Detect) Influenza A (H1) PCR Not Detected Not Detected (Not Detect) Influ A (H1N1/09) PCR Not Detected Not Detected (Not Detect) Influenza A (H3) PCR Not Detected Not Detected (Not Detect) Influenza A Untype (PCR) Not Detected Not Detected (Not Detect) Influenza Type B (PCR) Not Detected Not Detected (Not Detect) Mycoplasma pneumon IgG 0.51 H (<=0.09) U/L Mycoplasma pneumon IgM 0.05 (<=0.76) U/L M.pneumoniae DNA (PCR) Not Detected Not Detected (Not Detect) Parainfluenza 1 (PCR) Not Detected Not Detected (Not Detect) Parainfluenza 2 (PCR) Not Detected Not Detected (Not Detect) Parainfluenza 3 (PCR) Not Detected Not Detected (Not Detect) Parainfluenza 4 (PCR) Not Detected Not Detected (Not Detect) RSV (PCR) Not Detected Not Detected (Not Detect) Entero/Rhino (PCR) Not Detected Not Detected (Not Detect) Exam - Constitutional Vitals: Temp Pulse Resp BP Pulse Ox 97.4 F L 76 21 189/82 94 07/26/17 07:48 07/26/17 07:48 07/26/17 07:48 07/26/17 07:48 07/26/17 07:48 - Head Head exam: Present: atraumatic, normocephalic - ENT ENT exam: Present: mucous membranes moist - Respiratory Respiratory exam: Present: decreased breath sounds, wheezes - Cardiovascular Cardiovascular exam: Present: RRR, +S1, +S2 - GI/Abdominal GI/Abdominal exam: Present: normal bowel sounds, soft - Extremities Exam Extremities exam: Present: normal inspection - VTE Documentation of Mechanical Device: Intermittent pneumatic compression device Consult Discharge Plan - Plan Referrals: Giselle Rhoades MD [Primary Care Provider] - (the dr will do a home visit once you get home please call and let them know and they will tell you when they will be there) Rosalind Fuentes MD [Partnered Physician] - (i requested an appointment on 16 if you have not heard from them by the middle of next week please call the office back) - Attending Attestation I examined this patient and my medical decision-making was reviewed with the Resident Physician. I agree with the documented findings, disposition and treatment plan as described except to the extent set forth below.
--- NOTE | 2017-07-26 09:49 | Pulmonology Progress Note ---
<Duncan Lim - Last Filed: 07/26/17 09:49> Date of Encounter: 07/26/17 Time of Encounter: 09:00 Assessment and Plan (1) Pneumonia Current Visit: Yes Status: Suspected Remarkably improved respiratory status vs previous days Tolerated BiPAP at night with no complaints; in no distress on usual rate of home O2 Plan/recommendations: -- ECHO bubble study pending; at this point, shunt/mismatch factor seems less likely due to overall clinical improvement -- May begin tapering steroids -- Defer all other plans to primary team Qualifiers: Pneumonia type: due to unspecified organism Laterality: left Lung location: lower lobe of lung Qualified Code(s): J18.1 - Lobar pneumonia, unspecified organism (2) COPD exacerbation Current Visit: Yes Status: Acute all plans as above; otherwise defer to primary team (3) Atelectasis of both lungs Current Visit: Yes Status: Suspected Subjective Principal diagnosis: acute on chronic respiratory failure Interval history: Uneventful night, per nursing. Patient's respiratory status remarkably improved. Used BiPAP while asleep without difficulty. Conversational and in no respiratory distress on 4L via NC while seated at bedside chair. Patient does request education in being able to place and remove BiPAP mask by herself for usual home use. ECHO Bubble Study ordered and completed; interpretation is pending. Objective PUL Vital signs: Last Vital Signs Temp 97.4 F L 07/26/17 07:48 Pulse 76 07/26/17 07:48 Resp 21 07/26/17 07:48 BP 189/82 07/26/17 07:48 Pulse Ox 94 07/26/17 07:48 General appearance: no acute distress Eyes: nonicteric ENT: oropharynx moist Effort: normal Auscultation: bilateral: diminished breath sounds Cardiovascular: regular rate and rhythm Gastrointestinal: soft, non-tender Integumentary: normal Extremities: edema (mild symmetrical pedal edema) normal mental status mood appropriate, affect normal Results - Laboratory Findings CBC and BMP: 07/26/17 03:39 07/25/17 10:42 ABG ABG pH 7.34 pH Units (7.32-7.45) 07/13/17 06:37 ABG pCO2 58 mmHg (35-45) H 07/13/17 06:37 ABG pO2 86 mmHg (85-104) 07/13/17 06:37 ABG O2 Saturation 96 % (95-98) 07/13/17 06:37 Abnormal lab findings: Abnormal lab results WBC 15.3 K/mcL (4.3-11.1) H 07/26/17 03:39 RBC 3.65 M/mcL (3.82-4.97) L 07/26/17 03:39 Hgb 10.1 g/dL (11.5-15.4) L 07/26/17 03:39 Hct 32.9 % (35.3-44.9) L 07/26/17 03:39 MCH 27.7 pg (28.0-33.3) L 07/26/17 03:39 MCHC 30.7 g/dL (31.6-35.5) L 07/26/17 03:39 RDW 15.8 % (11.5-14.5) H 07/26/17 03:39 Neutrophils # 14.0 K/mcL (1.6-8.9) H 07/26/17 03:39 Lymphocytes # 0.5 K/mcL (0.6-4.6) L 07/26/17 03:39 Nucleated RBCs/100 WBC 0.1 /100 WBC (0) H 07/26/17 03:39 ABG pCO2 58 mmHg (35-45) H 07/13/17 06:37 ABG HCO3 32 mEq/L (21-27) H 07/13/17 06:37 ABG Total CO2 33 mEq/L (20-26) H 07/13/17 06:37 ABG Base Excess 4 mEq/L (-2 to 3) H 07/13/17 06:37 Carbon Dioxide 34 mEq/L (23-29) H 07/25/17 10:42 BUN 51 mg/dL (8-23) H 07/25/17 10:42 Est GFR (Non-Af Amer) 50 (> 60) L 07/25/17 10:42 BUN/Creatinine Ratio 46 (6-26) H 07/25/17 10:42 Glucose 319 mg/dL (70-105) H 07/25/17 10:42 POC Glucose 253 (58-89) H 07/26/17 07:55 Hemoglobin A1c 9.3 % (-5.6) H 07/12/17 14:44 Calculated Osmolality 314 (280-300) H 07/25/17 10:42 B-Natriuretic Peptide 207 pg/mL (Less than 100) H 07/12/17 16:14 Vancomycin Trough 38.9 mcg/mL (10-20) H* 07/22/17 03:43 Mycoplasma pneumon IgG 0.51 U/L (<=0.09) H 07/14/17 18:36 - Microbiology Findings Microbiology Findings: Microbiology, Last 48 Hours 07/24/17 12:00 Sputum Culture - Preliminary Sputum - Clinical Findings Intake & Output: Intake & Output 07/25/17 07/26/17 07/26/17 23:59 07:59 15:59 Intake Total 400 / 400 0 / 0 Output Total 600 / 600 0 / 0 Balance -200 / -200 0 / 0 Weight 138.9 kg - VTE Documentation of Mechanical Device: Intermittent pneumatic compression device Consult Discharge Plan - Plan Referrals: Giselle Rhoades MD [Primary Care Provider] - (pcp has been requested) <Rosalind Fuentes - Last Filed: 07/26/17 11:06> Date of Encounter: 07/26/17 Assessment and Plan (1) Pneumonia Current Visit: Yes Status: Suspected Qualifiers: Pneumonia type: due to unspecified organism Laterality: left Lung location: lower lobe of lung Qualified Code(s): J18.1 - Lobar pneumonia, unspecified organism (2) Atelectasis of both lungs Current Visit: Yes Status: Suspected (3) COPD (chronic obstructive pulmonary disease) Current Visit: Yes Status: Chronic Qualifiers: COPD type: emphysema Emphysema type: unspecified Qualified Code(s): J43.9 - Emphysema, unspecified Objective PUL Vital signs: Last Vital Signs Temp 97.4 F L 07/26/17 07:48 Pulse 76 07/26/17 07:48 Resp 22 07/26/17 11:01 BP 189/82 07/26/17 07:48 Pulse Ox 91 07/26/17 11:01 Results - Laboratory Findings CBC and BMP: 07/26/17 03:39 07/25/17 10:42 ABG ABG pH 7.34 pH Units (7.32-7.45) 07/13/17 06:37 ABG pCO2 58 mmHg (35-45) H 07/13/17 06:37 ABG pO2 86 mmHg (85-104) 07/13/17 06:37 ABG O2 Saturation 96 % (95-98) 07/13/17 06:37 Abnormal lab findings: Abnormal lab results WBC 15.3 K/mcL (4.3-11.1) H 07/26/17 03:39 RBC 3.65 M/mcL (3.82-4.97) L 07/26/17 03:39 Hgb 10.1 g/dL (11.5-15.4) L 07/26/17 03:39 Hct 32.9 % (35.3-44.9) L 07/26/17 03:39 MCH 27.7 pg (28.0-33.3) L 07/26/17 03:39 MCHC 30.7 g/dL (31.6-35.5) L 07/26/17 03:39 RDW 15.8 % (11.5-14.5) H 07/26/17 03:39 Neutrophils # 14.0 K/mcL (1.6-8.9) H 07/26/17 03:39 Lymphocytes # 0.5 K/mcL (0.6-4.6) L 07/26/17 03:39 Nucleated RBCs/100 WBC 0.1 /100 WBC (0) H 07/26/17 03:39 ABG pCO2 58 mmHg (35-45) H 07/13/17 06:37 ABG HCO3 32 mEq/L (21-27) H 07/13/17 06:37 ABG Total CO2 33 mEq/L (20-26) H 07/13/17 06:37 ABG Base Excess 4 mEq/L (-2 to 3) H 07/13/17 06:37 Carbon Dioxide 34 mEq/L (23-29) H 07/25/17 10:42 BUN 51 mg/dL (8-23) H 07/25/17 10:42 Est GFR (Non-Af Amer) 50 (> 60) L 07/25/17 10:42 BUN/Creatinine Ratio 46 (6-26) H 07/25/17 10:42 Glucose 319 mg/dL (70-105) H 07/25/17 10:42 POC Glucose 253 (58-89) H 07/26/17 07:55 Hemoglobin A1c 9.3 % (-5.6) H 07/12/17 14:44 Calculated Osmolality 314 (280-300) H 07/25/17 10:42 B-Natriuretic Peptide 207 pg/mL (Less than 100) H 07/12/17 16:14 Vancomycin Trough 38.9 mcg/mL (10-20) H* 07/22/17 03:43 Mycoplasma pneumon IgG 0.51 U/L (<=0.09) H 07/14/17 18:36 - Microbiology Findings Microbiology Findings: Microbiology, Last 48 Hours 07/24/17 12:00 Sputum Culture - Preliminary Sputum - Clinical Findings Intake & Output: Intake & Output 07/25/17 07/26/17 07/26/17 23:59 07:59 15:59 Intake Total 400 / 400 0 / 0 Output Total 600 / 600 0 / 0 Balance -200 / -200 0 / 0 Weight 138.9 kg - Attending Attestation I examined this patient and my medical decision-making was reviewed with the Resident Physician. I agree with the documented findings, disposition and treatment plan as described except to the extent set forth below. Patient seen and examined. Labs, radiology, chart personally reviewed. Agree with resident's history and physical, assessment, plan with following comments: EXTERMINATOR: Patient follows commands, Pulmonary: Acceptable oxygenation and ventilation and tolerating noninvasive ventilation. Patient has improved and continue current treatment and he remained stable can be transitioned to oral systemic steroids. Cardiovascular: Follow-up on echocardiogram Please call for any questions and patient can follow-up as outpatient.
[2017-07-26] MEDS: Tiotropium 18 MCG inhalation IH SCH (11:00)
[2017-07-26] MEDS: Budesonide/Formoterol 160/4.5 MDI IH SCH ×2 (11:00→22:31)
[2017-07-26] MEDS: Insulin DETEMIR 100 UNIT/ML X5UNITS SQ SCH (22:39)
--- NOTE | 2017-07-26 23:52 | Internal Med Progress Note ---
Date of Encounter: 07/26/17 Time of Encounter: 23:52 - Assessment and plan (1) Acute respiratory failure with hypoxia and hypercapnia Current Visit: Yes Status: Acute Assessment and plan: Improved back to baseline. O2 requirement 4L high flow NC at this time; will wean to NC and ambulate. ID consulted; appreciate input. Continue Bactrim. Pulmonology consulted; appreciate input. Continue steroids; will send home with prednisone taper. Continue nebulizer treatments. Continue to wean O2 per RT. Medically clear for discharge home, but DME taking away BiPAP. Will need requalification tonight, and DME can approve tommorrow. sales administration manager is working on this. Plan for discharge home tomorrow. (2) Leucocytosis Current Visit: Yes Status: Acute Assessment and plan: Improved. Continue bactrim. Qualifiers: Leukocytosis type: unspecified Qualified Code(s): D72.829 - Elevated white blood cell count, unspecified (3) Acute renal failure superimposed on stage 3 chronic kidney disease Current Visit: Yes Status: Chronic Assessment and plan: GUERRERO resolved. At baseline creatinine. Continue to avoid nephrotoxic medications. Qualifiers: Acute renal failure type: unspecified Qualified Code(s): N17.9 - Acute kidney failure, unspecified; N18.3 - Chronic kidney disease, stage 3 (moderate) ; N18.3 - Chronic kidney disease, stage 3 (moderate) (4) COPD (chronic obstructive pulmonary disease) Current Visit: Yes Status: Chronic Assessment and plan: Management as per above. Qualifiers: COPD type: emphysema Emphysema type: unspecified Qualified Code(s): J43.9 - Emphysema, unspecified (5) Type 2 diabetes mellitus Current Visit: Yes Status: Chronic Assessment and plan: Complicated by steroid use and poor diet. Much better now. Continue accuchecks and current insulin regimen with high dose SSI, QHS levemir, and TIDAC lispro. Qualifiers: Diabetes mellitus skilled nursing insulin use: with skilled nursing use Diabetes mellitus complication status: without complication Qualified Code(s): E11.9 - Type 2 diabetes mellitus without complications; Z79.4 - senior living (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 of insulin; Z79.4 - senior living (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 of insulin; Z79.4 - rat exterminator ( 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 of insulin; Z79.4 - rat exterminator (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 of insulin (6) Anxiety Current Visit: Yes Status: Chronic Assessment and plan: Now controlled. Continue xanax and PRN vistaril. Continue home medications. (7) Hives Current Visit: Yes Status: Resolved Assessment and plan: Resolved. Secondary to anxiety per patient. Continue vistaril PRN itching. (8) DVT prophylaxis Current Visit: Yes Status: Acute Assessment and plan: Continue heparin. - Time Spent With Patient less than 15 minutes - Subjective Interval history: Patient had no acute events overnight. She states that she feels good and wants to go home. She denies any SOB. Still on high flow NC, but down to 4 L this morning. Will wean to NC. Anxiety and hives resolved. She denies fever or chills. She denies chest pain. She has no other complaints. - Constitutional Vitals: Temp Pulse Resp BP Pulse Ox 98.1 F 79 18 136/66 94 07/26/17 20:34 07/26/17 20:34 07/26/17 22:35 07/26/17 20:34 07/26/17 22:35 General appearance: Present: cooperative, A&O X 3, morbidly obese, pleasant, no acute distress, answers questions appropriately - Respiratory Respiratory exam: Present: CTAB. Absent: accessory muscle use, rales, rhonchi, wheezes Additional comments: Normal WOB - Cardiovascular Cardiovascular exam: Present: RRR. Absent: diastolic murmur, gallop, rubs, +S1 , +S2, systolic murmur Additional comments: Moderate BLE edema - GI/Abdominal GI/Abdominal exam: Present: normal bowel sounds, soft. Absent: distended, hepatomegaly, mass, splenomegaly, tenderness - Psychiatric Psychiatric exam: Present: normal affect, normal mood. Absent: anxious, depressed - Skin Skin exam: Present: dry, intact, warm. Absent: cyanosis, rash Internal Medicine: Result - Labs CBC & Chem 7: 07/26/17 03:39 07/25/17 10:42 Labs: Short CBC 07/26/17 Range/Units 03:39 WBC 15.3 H (4.3-11.1) K/mcL Hgb 10.1 L (11.5-15.4) g/dL Hct 32.9 L (35.3-44.9) % Plt Count 273 (140-400) K/mcL Neutrophils # 14.0 H (1.6-8.9) K/mcL - ABG Interpretation ABG results: ABG ABG pH 7.34 pH Units (7.32-7.45) 07/13/17 06:37 ABG pCO2 58 mmHg (35-45) H 07/13/17 06:37 ABG pO2 86 mmHg (85-104) 07/13/17 06:37 ABG O2 Saturation 96 % (95-98) 07/13/17 06:37 - Impressions Impressions Echocardiogram Limited Views 07/25/17 10:34 Impressions: LVEF 65%. Normal LV chamber size and function. Mild concentric left ventricular hypertrophy. Mildly dilated right ventricle with normal function. No evidence of PFO with agitated saline contrast. Left Ventricular Wall Motion: Rest Echo Findings All wall segments showed normal motion. Findings: Study Quality * Technically adequate exam. ECG Findings * Normal sinus rhythm. Left Ventricle * LVEF 65%. * Normal LV chamber size and function. * Mild concentric left ventricular hypertrophy. Right Ventricle * Mildly dilated right ventricle with normal function. Left Atrium * Mildly dilated left atrium. Right Atrium * Mildly dilated right atrium. Interatrial Septum * No evidence of PFO with agitated saline contrast. - VTE Documentation of Mechanical Device: Intermittent pneumatic compression device Consult Discharge Plan - Plan Referrals: Giselle Rhoades MD [Primary Care Provider] - (the dr will do a home visit once you get home please call and let them know and they will tell you when they will be there) Rosalind Fuentes MD [Partnered Physician] - (i requested an appointment on if you have not heard from them by the middle of next week please call the office back)
[2017-07-27] MEDS: Ipratropium/Albuterol Neb 3 ML IH SCH ×2 (03:51→10:00)
[2017-07-27] MEDS: Levothyroxine 25 MCG TABLET PO SCH (06:20)
[2017-07-27 07:07] VITALS: BP 151/62
[2017-07-27] MEDS: methylPREDNISolone 125 MG/2 ML VIAL IVP SCH (07:50)
[2017-07-27] MEDS: Folic Acid 1 MG TABLET PO SCH (07:50)
[2017-07-27] MEDS: FLUoxetine 20 MG CAPSULE PO SCH (07:50)
[2017-07-27] MEDS: Gabapentin 300 MG CAPSULE PO SCH (07:51)
[2017-07-27] MEDS: Anastrozole 1 MG TABLET PO SCH (07:51)
[2017-07-27] MEDS: Furosemide 40 MG TABLET PO SCH (07:51)
[2017-07-27] MEDS: ALPRAZolam 0.5 MG TABLET PO SCH (07:51)
[2017-07-27] MEDS: Magnesium Oxide 400 MG TABLET PO SCH (07:51)
[2017-07-27] MEDS: Aspirin Enteric Coated 325 MG Tablet PO SCH (07:51)
[2017-07-27] MEDS: Nicotine 21 MG PATCH.TD24 TD SCH (07:52)
[2017-07-27] MEDS: Fluticasone Propionate Nasal 50 MCG/SPRAY BOTTLE NS SCH (07:54)
[2017-07-27] MEDS: *HR* Heparin 5,000 UNIT/ML VIAL SQ SCH (07:54)
[2017-07-27] MEDS: Sulfamethoxazole/Trimeth DS 1 EACH TABLET PO SCH (07:55)
[2017-07-27] MEDS: Insulin LISPRO 300 UNITS/3 ML VIAL SQ SCH ×2 (08:03)
[2017-07-27] MEDS: Tiotropium 18 MCG inhalation IH SCH (09:57)
[2017-07-27] MEDS: Budesonide/Formoterol 160/4.5 MDI IH SCH (10:00)
--- NOTE | 2017-07-27 10:43 | Discharge Summary ---
- NOTES TO OUTPATIENT PROVIDER Notes to Outpatient Provider: Follow up with PCP in 2-3 days after discharge. Check blood glucose and decrease insulin requirement as she comes off of prednisone. Orders not resulted at time of discharge: Pending orders 07/27/17 07:00 CXR, PA/Lateral [XR chest 2V] [XR] Routine Date of Encounter: 07/27/17 Time of Encounter: 10:39 - Discharge Diagnosis (1) Acute respiratory failure with hypoxia and hypercapnia Priority: Primary Status: Resolved (2) Leucocytosis Priority: Secondary Status: Acute Qualifiers: Leukocytosis type: unspecified Qualified Code(s): D72.829 - Elevated white blood cell count, unspecified (3) Acute renal failure superimposed on stage 3 chronic kidney disease Priority: Secondary Status: Chronic Qualifiers: Acute renal failure type: unspecified Qualified Code(s): N17.9 - Acute kidney failure, unspecified; N18.3 - Chronic kidney disease, stage 3 (moderate) ; N18.3 - Chronic kidney disease, stage 3 (moderate) (4) COPD (chronic obstructive pulmonary disease) Priority: Secondary Status: Chronic Qualifiers: COPD type: emphysema Emphysema type: unspecified Qualified Code(s): J43.9 - Emphysema, unspecified (5) Type 2 diabetes mellitus Priority: Secondary Status: Chronic Qualifiers: Diabetes mellitus terminal carman insulin use: with nursing home use Diabetes mellitus complication status: without complication Qualified Code(s): E11.9 - Type 2 diabetes mellitus without complications; Z79.4 - terminal clerk (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 of insulin; Z79.4 - skilled nursing (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 of insulin; Z79.4 - skilled nursing ( 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 of insulin; Z79.4 - skilled nursing (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 of insulin (6) Anxiety Priority: Secondary Status: Chronic (7) Hives Priority: Secondary Status: Resolved (8) DVT prophylaxis Priority: Secondary Status: Acute Hospital course: Ms. Yang is a 62 year old female admitted for acute hypoxic respiratory failure, COPD exacerbation, and acute kidney injury. She was admitted to ICU on telemetry and pulmonology was consulted. She was transferred from OSH on BiPAP. CXR showed mild interstitial edema; no focal consolidation. She was continued on BiPAP with wean as tolerated. She was started on IV solumedrol, duonebs, albuterol PRN, and symbicort. She was started on empiric antibiotics for treatment of presumed CAP with Levaquin and Zosyn. The next day she was weaned from BiPAP to venti mask and transferred to step down. Solumedrol was decreased. Antibiotics continued. She developed GUERRERO on CKD and started on gentle IVF hydration. She had poorly controlled blood glucose for her DM, and this was made worse with steroids, so diabetes regimen was adjusted. Zosyn was discontinued. She continued to improve and was tapered to home 3 L by NC. However, she could not be discharged due to elevated blood glucose. She had respiratory decompensation while insulin regimen was being adjusted. She had to be placed on up to 14 L high flow NC. Steroids increased again and vancomycin/zosyn restarted. ID was consulted, and pulmonology was reconsulted. ID and pulmonology debated pneumonia vs worsening COPD. It took several days to be weaned back to home 3 L NC. On day of discharge, she was on solumedrol and bactrim. SW had to requalify patient for BiPAP, which was being repossessed by [employer]. It has now been reapproved. She will be discharged home with 3 more days of bactrim and a prednisone taper. She will continue 3 L by NC continuous O2 at home with BiPAP at night. She will follow up with PCP in 2-3 days after discharged. She will be discharged home with an increased insulin regimen. This can be adjusted back down by PCP as she comes off of steroids. Patient has met maximum benefit of this hospitalization and will be discharged home in stable condition. Discharge discussed with: patient, nurse - Time Spent with Patient Total time spent providing and/or coordinating discharge services: Greater than 30 minutes - Discharge Medications Prescriptions: Insulin Glargine,Hum.rec.anlog [Lantus Solostar] 80 unit SQ HS #1 insuln.pen Insulin LISPRO [HumaLOG] 25 units SQ TIDAC #1 vial predniSONE [PredniSONE] See Taper PO BIDWM #54 tablet Sulfamethoxazole/Trimeth DS [Bactrim Ds] 1 each PO BID 3 Days #6 tablet Home Medications: Folic Acid 1 mg PO DAILY 05/23/15 [History] Levothyroxine [Synthroid] 25 mcg PO DAILY 05/23/15 [History] Montelukast [Singulair] 10 mg PO DAILY 10/25/15 [History] FLUoxetine HCl [Fluoxetine HCl] 40 mg PO DAILY 05/21/16 [History] Fluticasone Propionate Nasal [Flonase] 2 spr NS PRN PRN 01/09/17 [History] Carvedilol [Coreg] 6.25 mg PO BID 03/28/17 [History] Polyethylene Glycol 3350 [MiraLAX Powder Bulk 17.9 Oz] 1 scoop PO DAILY #510 gm 03/28/17 [Rx] Metoclopramide [Reglan] 5 mg PO QIDAC #120 tablet 04/19/17 [Rx] Gabapentin [Neurontin] 300 mg PO TID #90 capsule 04/26/17 [Rx] Anastrozole [Arimidex] 1 mg PO DAILY 06/04/17 [History] Aspirin [Ecotrin] 325 mg PO DAILY 07/11/17 [History] Cholecalciferol (Vitamin D3) [Vitamin D3] 1 cap PO QWEEK 07/11/17 [History] Fluticasone/Vilanterol [Breo Ellipta 200-25 Mcg INH] 1 puff IH DAILY 07/11/17 [ History] Ipratropium/Albuterol Sulfate [Combivent Respimat Inhal [place]] 4 gm IH QID 07/11 [History] Magnesium Oxide [Mgo] 400 mg PO BID 07/11/17 [History] Sennosides/Docusate Sodium [Senna-S Tablet] 1 each PO BID PRN 07/11/17 [History] Simvastatin [Zocor] 20 mg PO HS 07/11/17 [History] hydrOXYzine HCl [Hydroxyzine HCl] 25 mg PO TID PRN 07/11/17 [History] Albuterol Neb [Proventil Neb] 2.5 mg IH Q2H PRN inhsol 07/12/17 [Rx] Furosemide [Lasix] 80 mg PO BID 07/12/17 [History] Insulin LISPRO [HumaLOG] 0 units SQ Q6HR vial 07/12/17 [Rx] Ipratropium/Albuterol Neb [Duoneb] 3 ml IH [id number] inhsol 07/12/17 [Rx] Losartan [Cozaar] 25 mg PO DAILY 07/12/17 [History] Omeprazole [PriLOSEC] 20 mg PO DAILY 07/12/17 [History] Spironolactone [Aldactone] 25 mg PO BID 07/12/17 [History] diazePAM [Valium] 5 mg PO TID 07/12/17 [History] Insulin Glargine,Hum.rec.anlog [Lantus Solostar] 80 unit SQ HS #1 insuln.pen [Rx] Insulin LISPRO [HumaLOG] 25 units SQ TIDAC #1 vial 07/27/17 [Rx] Oxygen 3 l IH AD #0 07/27/17 [Rx] Sulfamethoxazole/Trimeth DS [Bactrim Ds] 1 each PO BID 3 Days #6 tablet [Rx] predniSONE [PredniSONE] See Taper PO BIDWM #54 tablet 07/27/17 [Rx] Allergies/Adverse Reactions: 3 Allergy/AdvReac Type Severity Reaction Status Date / Time acetaminophen [From Tylenol] Allergy Hives Verified 05/24/17 22:37 ibuprofen AdvReac Nausea Verified 05/24/17 22:37 NSAIDS (Non-Steroidal AdvReac Nausea Verified 05/24/17 22:37 Anti-Inflamma Date of admission: 07/12/17 13:46 Primary care physician: Giselle Rhoades, Consults: 07/12/17 13:58 Consult to Pulmonology [CONS] Routine Consulting Provider: [facility] Reason for Consult: RESPIRAOTRY FAILURE Time Notified: 14:04 Call Completed: Yes 07/13/17 09:11 Consult to Occupational Therapy [CONS] Routine Comment: Evaluate, develop and implement POC Reason for Consult: Eval for mobility, ability to perform self care. Consult to Physical Therapy [CONS] Routine Comment: Evaluate, develop and implement POC Reason for Consult: Eval for mobility, ability to perform self care. 07/16/17 17:00 Consult to Instructor Business Education [CONS] Routine Reason for SW Consult: will need rehab at d/c 07/22/17 11:02 Consult to Pulmonology [CONS] Routine Consulting Provider: [facility] Reason for Consult: Pt with advanced COPD whos become BiPAP dependent Time Notified: 11:03 Call Completed: Yes 07/22/17 12:01 Consult to Infectious Diseases [CONS] Routine Consulting Provider: Infectious Disease [facility] Reason for Consult: PNA/COPD pt failing treatment . Time Notified: 12:02 Call Completed: No Discharging clinician: Maxwell Guthrie Anticipated date of discharge: 07/27/17 - Constitutional Vitals: Temp Pulse Resp BP Pulse Ox 97.8 F 73 18 151/62 93 07/27/17 06:00 07/27/17 06:00 07/27/17 10:00 07/27/17 06:00 07/27/17 10:00 General appearance: Present: cooperative, A&O X 3, morbidly obese, pleasant, no acute distress, answers questions appropriately - Respiratory Respiratory exam: Present: CTAB. Absent: accessory muscle use, rales, rhonchi, wheezes Additional comments: Normal WOB - Cardiovascular Cardiovascular exam: Present: RRR, +S1, +S2. Absent: diastolic murmur, gallop, rubs, systolic murmur Additional comments: Moderate BLE edema - GI/Abdominal GI/Abdominal exam: Present: normal bowel sounds, soft. Absent: distended, hepatomegaly, mass, splenomegaly, tenderness - Psychiatric Psychiatric exam: Present: normal affect, normal mood. Absent: anxious, depressed - Skin Skin exam: Present: dry, intact, warm. 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 Check blood glucose and decrease insulin requirement as she comes off of prednisone. Wear supplemental O2 continuous 3 L by NC. Wear BiPAP QHS. - Diet and Activity Activity: as per physical therapy, wear oxygen at all times Diet: diabetic diet
--- NOTE | 2017-07-27 11:50 | Physician Discharge Referral ---
Home Health/Hosp Referral Info Transfer to: Home Health Provider in Charge Post Discharge: PCP - Diagnosis (1) Acute respiratory failure with hypoxia and hypercapnia Priority: Primary Status: Resolved (2) Leucocytosis Priority: Secondary Status: Acute (3) Acute renal failure superimposed on stage 3 chronic kidney disease Priority: Secondary Status: Chronic (4) COPD (chronic obstructive pulmonary disease) Priority: Secondary Status: Chronic (5) Type 2 diabetes mellitus Priority: Secondary Status: Chronic (6) Anxiety Priority: Secondary Status: Chronic (7) Hives Priority: Secondary Status: Resolved (8) DVT prophylaxis Priority: Secondary Status: Acute - Respiratory Orders Oxygen / L per min (3L NC during day), Other (BiPAP at night) Smoking Cessation: Smoking cessation has been advised. For more information, call the [employer] Quit Line at 0-008-YSQM-NOW. - Diet/Nutrition Diet/Nutrition Orders: No Concentrated Sweets Diet/Nutrition: List: Diabetic - Activity Activity: List: Per physical therapy - Services Needed Following services are medically necessary services: Nursing, Physical Therapy, Occupational Therapy - Transfer Medications Prescriptions: Insulin Glargine,Hum.rec.anlog [Lantus Solostar] 80 unit SQ HS #1 insuln.pen Insulin LISPRO [HumaLOG] 25 units SQ TIDAC #1 vial predniSONE [PredniSONE] See Taper PO BIDWM #54 tablet Sulfamethoxazole/Trimeth DS [Bactrim Ds] 1 each PO BID 3 Days #6 tablet Home Medications: Folic Acid 1 mg PO DAILY 05/23/15 [History] Levothyroxine [Synthroid] 25 mcg PO DAILY 05/23/15 [History] Montelukast [Singulair] 10 mg PO DAILY 10/25/15 [History] FLUoxetine HCl [Fluoxetine HCl] 40 mg PO DAILY 05/21/16 [History] Fluticasone Propionate Nasal [Flonase] 2 spr NS PRN PRN 01/09/17 [History] Carvedilol [Coreg] 6.25 mg PO BID 03/28/17 [History] Polyethylene Glycol 3350 [MiraLAX Powder Bulk 17.9 Oz] 1 scoop PO DAILY #510 gm 03/28/17 [Rx] Metoclopramide [Reglan] 5 mg PO QIDAC #120 tablet 04/19/17 [Rx] Gabapentin [Neurontin] 300 mg PO TID #90 capsule 04/26/17 [Rx] Anastrozole [Arimidex] 1 mg PO DAILY 06/04/17 [History] Aspirin [Ecotrin] 325 mg PO DAILY 07/11/17 [History] Cholecalciferol (Vitamin D3) [Vitamin D3] 1 cap PO QWEEK 07/11/17 [History] Fluticasone/Vilanterol [Breo Ellipta 200-25 Mcg INH] 1 puff IH DAILY 07/11/17 [ History] Ipratropium/Albuterol Sulfate [Combivent Respimat Inhal [place]] 4 gm IH QID 07/11 [History] Magnesium Oxide [Mgo] 400 mg PO BID 07/11/17 [History] Sennosides/Docusate Sodium [Senna-S Tablet] 1 each PO BID PRN 07/11/17 [History] Simvastatin [Zocor] 20 mg PO HS 07/11/17 [History] hydrOXYzine HCl [Hydroxyzine HCl] 25 mg PO TID PRN 07/11/17 [History] Albuterol Neb [Proventil Neb] 2.5 mg IH Q2H PRN inhsol 07/12/17 [Rx] Furosemide [Lasix] 80 mg PO BID 07/12/17 [History] Insulin LISPRO [HumaLOG] 0 units SQ Q6HR vial 07/12/17 [Rx] Ipratropium/Albuterol Neb [Duoneb] 3 ml IH [id number] inhsol 07/12/17 [Rx] Losartan [Cozaar] 25 mg PO DAILY 07/12/17 [History] Omeprazole [PriLOSEC] 20 mg PO DAILY 07/12/17 [History] Spironolactone [Aldactone] 25 mg PO BID 07/12/17 [History] diazePAM [Valium] 5 mg PO TID 07/12/17 [History] Insulin Glargine,Hum.rec.anlog [Lantus Solostar] 80 unit SQ HS #1 insuln.pen [Rx] Insulin LISPRO [HumaLOG] 25 units SQ TIDAC #1 vial 07/27/17 [Rx] Oxygen 3 l IH AD #0 07/27/17 [Rx] Sulfamethoxazole/Trimeth DS [Bactrim Ds] 1 each PO BID 3 Days #6 tablet [Rx] predniSONE [PredniSONE] See Taper PO BIDWM #54 tablet 07/27/17 [Rx] Allergies/Adverse Reactions: 3 Allergy/AdvReac Type Severity Reaction Status Date / Time acetaminophen [From Tylenol] Allergy Hives Verified 05/24/17 22:37 ibuprofen AdvReac Nausea Verified 05/24/17 22:37 NSAIDS (Non-Steroidal AdvReac Nausea Verified 05/24/17 22:37 Anti-Inflamma Certification: Further, I certify that my clinical findings support that this patient is homebound (i.e. absences from home require considerable and taxing effort and are for medical reasons or congregational services or infrequently or short duration when for other reasons) because: chronic respiratory failure, COPD, and generalized debility. Homebound Reason: Patient requires assistance of a person or device to safely leave home, Leaving home requires considerable and taxing effort due to condition, Severity of cardiac or pulmonary status limits activity tolerance Attestation: My signature below is to certify that this patient is under my care and that I, or nurse practitioner, or a physician's veterinary technician assistant working with me, has a face-to -face encounter with this patient.
== END 2017-07-27 14:15 | disposition home health service (06) | DRG 190 ==
LOC: ICNU 13:46 → SUATTDRO 13:46 → 2NENU 07-13 16:45
PROVIDERS: ADMIT Pediatrics; ATTEND Student in an Organized Health Care Education/Training Program